=== PATIENT | female | born 1985 | race Caucasian/White ===

== ENCOUNTER → 2020-08-08 09:05 | Outpatient (BNVA) | payer MEDICARE, MEDICAID, SELFPAY | PROVIDERS: PCP Student in an Organized Health Care Education/Training Program; Visit Provider Orthopaedic Surgery | DX: M70.21 Olecranon bursitis, right elbow (principal) | CPT/HCPCS: 99204 ==

== ENCOUNTER 2020-08-11 12:23 | Outpatient (REF) | payer MEDICARE, MEDICAID, SELFPAY ==
[2020-08-12 08:56] LABS: Lyme Abs Screen <0.90 index
== END 2020-08-11 12:24 | disposition home or self-care (01) ==
LOC: HO.LAB 12:23
PROVIDERS: Visit Provider Student in an Organized Health Care Education/Training Program
DX: M70.22 Olecranon bursitis, left elbow (principal)
CPT/HCPCS: 36415; 86618

== ENCOUNTER 2020-10-16 12:52 | Inpatient (IN) | payer MEDICARE, MEDICAID, SELFPAY ==
--- NOTE | 2020-10-16 13:05 | XR_ITS ---
EXAMINATION: XR CHEST CLINICAL INFORMATION: OD COMPARISON: July 25, 2020 TECHNIQUE: AP portable view of the chest was obtained. FINDINGS: There are small lung volumes with minor atelectasis at the lung bases. No significant acute parenchymal disease identified. No pneumothorax or pleural effusion. Heart normal size. No evidence of pulmonary edema. XR/XR chest 1V IMPRESSION: No significant acute parenchymal disease.
--- NOTE | 2020-10-16 13:06 | ECG_ITS ---
Test Reason : OVERDOSE Blood Pressure : / mmHG Vent. Rate : 063 BPM Atrial Rate : 063 BPM P-R Int : 144 ms QRS Dur : 080 ms QT Int : 380 ms P-R-T Axes : 050 035 035 degrees QTc Int : 388 ms Normal sinus rhythm Low voltage QRS Borderline ECG When compared with ECG of 24-SEP-2019 09:07, Vent. rate has decreased BY 46 BPM Nonspecific T wave abnormality no longer evident in Lateral leads QT has shortened Referred By: Lg Low Electronically Signed By:SARAH GARCIA
--- NOTE | 2020-10-16 13:08 | ED_ITS ---
HPI - Overdose General Chief Complaint: Psychiatric Symptoms Stated Complaint: SI with Plan Time Seen by Provider: 10/16/20 13:04 Source: EMS Mode of arrival: EMS Limitations: no limitations History of Present Illness HPI Narrative: 35-year-old female with history of COPD, chronic thrombocytopenia, anxiety disorder, depression, vitamin B12 deficiency, opiate dependence, prior drug overdose, ADHD with surgical history of splenectomy presenting via EMS from the [facility] parking lot for the patient where she apparently attempted to commit suicide by the way of; she states that she bought a canister of a helium from the metal shop she put a bag over her head and apply connected to this tray to overdose on his however did not feel it was working so she bought some clonidine off history and took ?handful? 5 to 10 pills of 0.1 mg and took her regular medications as well. States she did not take anything ex tra aside from this. States she told her worker about this in the e-mail and the worker called her and told her what she did and who in return called EMS. Patient was found outside of her car and admitted to doing this to commit suicide. MD complaint: intentional overdose Related Data Home Medications Medication Instructions Recorded Confirmed albuterol sulfate 90 mcg/actuation 2 puff INHALATION QID 08/04/20 aerosol inhaler cariprazine 6 mg capsule 6 mg PO DAILY 08/04/20 clonazepam 1 mg tablet 1 mg PO DAILY 08/04/20 dextroamphetamine-amphetamine ER 25 mg PO DAILY 08/04/20 25 mg 24hr capsule,extend release fluticasone 500 mcg-salmeterol 50 1 inh INHALATION BID 08/04/20 mcg/dose blistr powdr for inhalation fluticasone propionate 50 1 spray INTRANASAL DAILY 08/04/20 mcg/actuation nasal spray,suspension gabapentin 100 mg capsule 200 mg PO DAILY cap 08/04/20 ibuprofen 400 mg tablet 400 mg PO Q6H 08/04/20 ipratropium 0.5 mg-albuterol 3 mg 3 ml INHALATION Q6-8H PRN 08/04/20 (2.5 mg base)/3 mL nebulization soln naproxen 250 mg tablet 250 mg PO BID PRN 08/04/20 nicotine 21 mg/24 hr daily 1 patch TRANSDERMAL DAILY 08/04/20 transdermal patch omeprazole magnesium 20 mg 20 mg PO DAILY 09/28/20 tablet,delayed release prednisone 10 mg tablet 10 mg PO BID 08/04/20 sumatriptan succinate 25 mg tablet 25 mg PO Q2-4H PRN 08/04/20 clonidine 0.1 mg-chlorthalidone 15 tab PO 08/08/20 mg tablet Previous Rx's Medication Instructions Recorded diclofenac sodium 75 mg 75 mg PO BID #60 tab 08/08/20 tablet,delayed release Allergies Allergy/AdvReac Type Severity Reaction Status Date / Time SEASONAL ALLERGIES Allergy Intermediate RUNNY NOSE Uncoded 07/24/20 15:20 WATERY EYES PMFSH Past Medical History Medical History (Updated 10/16/20 @ 21:14 by Lg Low NP) Anxiety COPD (chronic obstructive pulmonary disease) Depression Social History Social History Smoking Status: Current every day smoker Use of substances other than those prescribed or required for medical reasons: Yes Substance Use Type: Marijuana Advance Directives: No Advance Directives Information Provided: Yes 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 Physical Exam Vital Signs: Vital Signs: Last Vital Signs Temp 98.5 F 10/16/20 15:22 Pulse 58 10/16/20 18:00 Resp 16 10/16/20 18:00 BP 100/61 10/16/20 18:00 Pulse Ox 92 10/16/20 18:00 Body Mass Index 31.8 Course Course Course Narrative: Labs including toxicology screen, ethanol level, ABG and carboxyhemoglobin ordered. Patient alert and oriented x3. Will consult poison Control. Reevaluation(s) Reevaluation #1: Case discussed with poison control agreeable plan had nurses have reviewed the labs with them will call back to check up on it recommendation is to monitor for level of consciousness and side effects of the clonidine with bradycardia can be treated with atropine if it occurs. Otherwise no further recommendations. Reevaluation #2: Patient has remained stable repeat labs without significant change. Repeat EKG at 04:00 hours as well as toxicology screen including Tylenol aspirin level without change. Medically cleared Patient was seen by the crisis team in the community prior to arrival Section 12 in chart and bed search initiated. Reevaluation #3: 2114 Sign-out this time to 19 bending psychiatric placement MDM - Overdose Lab Data Result diagrams: 10/16/20 14:06 10/16/20 19:06 Labs: Lab Results 10/16/20 10/16/20 10/16/20 Range/Units 13:30 13:35 14:05 WBC (4.8-10.8) X10*3/uL RBC (4.20-5.50) X10*6/uL Hgb (12.0-16.0) g/dl Hct (37-47) % MCV (80-98) fL MCH (27.0-33.0) pg MCHC (31.0-35.0) g/dl RDW (11.0-16.0) % Plt Count (160-400) X10*3/uL MPV (9.4-12.3) fL Immature Gran % (Auto) (0.0-0.4) % Neut % (Auto) (45-73) % Lymph % (Auto) (20-40) % [place] % (Auto) (2-11) % Eos % (Auto) (0-4) % Baso % (Auto) (0-2) % Lymph # (Auto) (1.2-4.9) X10*3/uL [place] # (Auto) (0.1-1.2) X10*3/uL Eos # (Auto) (0.0-0.4) X10*3/uL Baso # (Auto) (0.0-0.2) X10*3/uL Abs Immat Gran (auto) (0.00-0.03) X10*3/uL Absolute Neuts (auto) (2.0-8.3) X10*3/uL Absolute Nucleated RBC (0.0-0.012) X10*3/uL Nucleated RBC % (auto) (0.0-0.2) /100WBC PT (10.8-13.0) SEC INR (0.9-1.1) APTT (24.1-38.0) SEC ABG pH 7.37 (7.35-7.45) ABG pCO2 46 H (32-45) mmhg ABG pO2 76 L (83-108) mmhg ABG HCO3 26 (22-26) mmol/l ABG O2 Saturation 95.4 % ABG Base Excess -0.2 Carboxyhemoglobin 6.1 H* % Oxygen Given 2 L Sodium (135-145) mmol/L Potassium (3.3-5.1) mmol/l Chloride (96-108) mmol/L Carbon Dioxide (22-29) mmol/L Anion Gap (12-20) BUN (9-16) mg/dL Creatinine (0.5-1.4) mg/dL Estim Creat Clear Calc Estimated GFR Random Glucose (60-115) mg/dL Calcium (8.4-10.2) mg/dL Total Bilirubin (0.0-1.0) mg/dL AST (5-31) U/L ALT (0-31) U/L Alkaline Phosphatase (39-117) U/L Total Protein (6.5-8.0) g/dL Albumin (3.5-5.0) g/dL Urine Color YELLOW Urine Appearance CLEAR Urine pH 6.0 (5.0-8.0) Ur Specific [place] 1.015 (1.005-1.025) Urine Protein NEG (NEG-TRACE) MG/DL Urine Glucose (UA) NEG (NEG) MG/DL Urine Ketones NEG (NEG) MG/DL Urine Blood 3+ H (NEG) Urine Nitrite NEG (NEG) Ur Leukocyte Esterase NEG (NEG) Urine RBC 0 (0) /HPF Urine WBC 0 (0-4) /HPF Ur Squamous Epith Cells TRACE /LPF Amorphous Sediment TRACE /LPF Urine Bacteria NONE /LPF Urine Test NEGATIVE (NEGATIVE) Salicylates (15-30) mg/dL Urine Opiates Screen (Not Detect) Acetaminophen (<30) mcg/mL Ur Barbiturates Screen (Not Detect) Ur Phencyclidine Scrn (Not Detect) Ur Amphetamines Screen (Not Detect) U Benzodiazepines Scrn (Not Detect) Urine Cocaine Screen (Not Detect) U Marijuana (THC) Screen (Not Detect) Ethyl Alcohol mg/dL 10/16/20 10/16/20 10/16/20 Range/Units 14:05 14:06 14:06 WBC 11.3 H (4.8-10.8) X10*3/uL RBC 4.69 (4.20-5.50) X10*6/uL Hgb 14.4 (12.0-16.0) g/dl Hct 42.6 (37-47) % MCV 90.8 (80-98) fL MCH 30.7 (27.0-33.0) pg MCHC 33.8 (31.0-35.0) g/dl RDW 14.8 (11.0-16.0) % Plt Count 492 H (160-400) X10*3/uL MPV 10.2 (9.4-12.3) fL Immature Gran % (Auto) 0.4 (0.0-0.4) % Neut % (Auto) 64.2 (45-73) % Lymph % (Auto) 26.4 (20-40) % [place] % (Auto) 7.4 (2-11) % Eos % (Auto) 0.9 (0-4) % Baso % (Auto) 0.7 (0-2) % Lymph # (Auto) 3.0 (1.2-4.9) X10*3/uL [place] # (Auto) 0.8 (0.1-1.2) X10*3/uL Eos # (Auto) 0.1 (0.0-0.4) X10*3/uL Baso # (Auto) 0.1 (0.0-0.2) X10*3/uL Abs Immat Gran (auto) 0.04 H (0.00-0.03) X10*3/uL Absolute Neuts (auto) 7.3 (2.0-8.3) X10*3/uL Absolute Nucleated RBC 0.000 (0.0-0.012) X10*3/uL Nucleated RBC % (auto) 0.0 (0.0-0.2) /100WBC PT (10.8-13.0) SEC INR (0.9-1.1) APTT (24.1-38.0) SEC ABG pH (7.35-7.45) ABG pCO2 (32-45) mmhg ABG pO2 (83-108) mmhg ABG HCO3 (22-26) mmol/l ABG O2 Saturation % ABG Base Excess Carboxyhemoglobin % Oxygen Given Sodium 136 (135-145) mmol/L Potassium 4.6 (3.3-5.1) mmol/l Chloride 103 (96-108) mmol/L Carbon Dioxide 25 (22-29) mmol/L Anion Gap 13 (12-20) BUN 12 (9-16) mg/dL Creatinine 0.77 (0.5-1.4) mg/dL Estim Creat Clear Calc 102.2 Estimated GFR > 60 Random Glucose 118 H (60-115) mg/dL Calcium 9.6 (8.4-10.2) mg/dL Total Bilirubin 0.5 (0.0-1.0) mg/dL AST 19 (5-31) U/L ALT 21 (0-31) U/L Alkaline Phosphatase 74 (39-117) U/L Total Protein 7.0 (6.5-8.0) g/dL Albumin 4.2 (3.5-5.0) g/dL Urine Color Urine Appearance Urine pH (5.0-8.0) Ur Specific [place] (1.005-1.025) Urine Protein (NEG-TRACE) MG/DL Urine Glucose (UA) (NEG) MG/DL Urine Ketones (NEG) MG/DL Urine Blood (NEG) Urine Nitrite (NEG) Ur Leukocyte Esterase (NEG) Urine RBC (0) /HPF Urine WBC (0-4) /HPF Ur Squamous Epith Cells /LPF Amorphous Sediment /LPF Urine Bacteria /LPF Urine Test (NEGATIVE) Salicylates < 5.0 L (15-30) mg/dL Urine Opiates Screen Not Detected (Not Detect) Acetaminophen < 1 (<30) mcg/mL Ur Barbiturates Screen Not Detected (Not Detect) Ur Phencyclidine Scrn Not Detected (Not Detect) Ur Amphetamines Screen POSITIVE H (Not Detect) U Benzodiazepines Scrn POSITIVE H (Not Detect) Urine Cocaine Screen Not Detected (Not Detect) U Marijuana (THC) Screen POSITIVE H (Not Detect) Ethyl Alcohol mg/dL 10/16/20 10/16/20 10/16/20 Range/Units 14:06 14:06 19:06 WBC (4.8-10.8) X10*3/uL RBC (4.20-5.50) X10*6/uL Hgb (12.0-16.0) g/dl Hct (37-47) % MCV (80-98) fL MCH (27.0-33.0) pg MCHC (31.0-35.0) g/dl RDW (11.0-16.0) % Plt Count (160-400) X10*3/uL MPV (9.4-12.3) fL Immature Gran % (Auto) (0.0-0.4) % Neut % (Auto) (45-73) % Lymph % (Auto) (20-40) % [place] % (Auto) (2-11) % Eos % (Auto) (0-4) % Baso % (Auto) (0-2) % Lymph # (Auto) (1.2-4.9) X10*3/uL [place] # (Auto) (0.1-1.2) X10*3/uL Eos # (Auto) (0.0-0.4) X10*3/uL Baso # (Auto) (0.0-0.2) X10*3/uL Abs Immat Gran (auto) (0.00-0.03) X10*3/uL Absolute Neuts (auto) (2.0-8.3) X10*3/uL Absolute Nucleated RBC (0.0-0.012) X10*3/uL Nucleated RBC % (auto) (0.0-0.2) /100WBC PT 12.3 (10.8-13.0) SEC INR 1.0 (0.9-1.1) APTT 34.8 (24.1-38.0) SEC ABG pH (7.35-7.45) ABG pCO2 (32-45) mmhg ABG pO2 (83-108) mmhg ABG HCO3 (22-26) mmol/l ABG O2 Saturation % ABG Base Excess Carboxyhemoglobin % Oxygen Given Sodium 141 (135-145) mmol/L Potassium 3.6 D (3.3-5.1) mmol/l Chloride 114 H (96-108) mmol/L Carbon Dioxide 19 L (22-29) mmol/L Anion Gap 12 (12-20) BUN 9 (9-16) mg/dL Creatinine 0.55 (0.5-1.4) mg/dL Estim Creat Clear Calc 143.1 Estimated GFR > 60 Random Glucose 89 (60-115) mg/dL Calcium 6.8 L D (8.4-10.2) mg/dL Total Bilirubin 0.4 (0.0-1.0) mg/dL AST 12 (5-31) U/L ALT 13 (0-31) U/L Alkaline Phosphatase 49 D (39-117) U/L Total Protein 4.5 L D (6.5-8.0) g/dL Albumin 2.7 L D (3.5-5.0) g/dL Urine Color Urine Appearance Urine pH (5.0-8.0) Ur Specific [place] (1.005-1.025) Urine Protein (NEG-TRACE) MG/DL Urine Glucose (UA) (NEG) MG/DL Urine Ketones (NEG) MG/DL Urine Blood (NEG) Urine Nitrite (NEG) Ur Leukocyte Esterase (NEG) Urine RBC (0) /HPF Urine WBC (0-4) /HPF Ur Squamous Epith Cells /LPF Amorphous Sediment /LPF Urine Bacteria /LPF Urine Test (NEGATIVE) Salicylates < 5.0 L (15-30) mg/dL Urine Opiates Screen (Not Detect) Acetaminophen < 1 (<30) mcg/mL Ur Barbiturates Screen (Not Detect) Ur Phencyclidine Scrn (Not Detect) Ur Amphetamines Screen (Not Detect) U Benzodiazepines Scrn (Not Detect) Urine Cocaine Screen (Not Detect) U Marijuana (THC) Screen (Not Detect) Ethyl Alcohol < 10 mg/dL Imaging Data Chest x-ray: Radiologist's impression: [address] [address] XRay Report Signed Patient: Tammy Romero LMR#: [id number] : 1985Acct:[id number] Age/Sex: 35 / FADM Date: 10/16/20 Loc: .ED Attending Dr: Ordering Physician: Lg Low NP Date of Service: 10/16/20 Procedure(s): XR chest 1V Accession Number(s): [id number] cc: Lg Low LAB SUPPORT TECHNICIAN~ EXAMINATION: XR CHEST CLINICAL INFORMATION: OD COMPARISON: July 25, 2020 TECHNIQUE: AP portable view of the chest was obtained. FINDINGS: There are small lung volumes with minor atelectasis at the lung bases. No significant acute parenchymal disease identified. No pneumothorax or pleural effusion. Heart normal size. No evidence of pulmonary edema. XR/XR chest 1V IMPRESSION: No significant acute parenchymal disease. Dictated By:JUANITO REYNAGA MD Signed By:<Electronically signed by JUANITO REYNAGA MD in OV>10/16/20 1428 DD/ 1305 TD/TT: [employer]der [employer]: KIESHA ECG Data Interpretation: Normal sinus rhythm Rate 63 P.r. interval within normal limits QT/QTC within normal limits No acute ST segment changes Discharge Plan Discharge Clinical Impression: Depression, Overdose, Suicide attempt Prescriptions: No Action diclofenac sodium 75 mg tablet,delayed release (DR/EC) 75 mg PO BID Qty: 60 RF: 2
[2020-10-16 13:28] VITALS: O2SAT 93
[2020-10-16 13:31] VITALS: BP 101/61; BP 102/84; PULSE 59; RESP 18; TEMP 36.9; O2SAT 90; BMI 31.8
--- NOTE | 2020-10-16 14:02 | PC.NURSE ---
Pt changed into hospital attire, urine obtained. Moved to room 8 and placed on equipment monitor phototypesetting and EKg obtained. Attempted IV access and unable, another RN to attemt at this time. Poison control contacted and states supportive care and monitoring for hypotension and bradycardia. Use Narcan (for clonidine OD) if warranted. Lg Maranda updated
[2020-10-16 14:07] LABS: ABG PCO2 46 mmhg (32-45); Base Excess ABG -0.2; HCO3 ABG 26 mmol/l (22-26); PO2 ABG 76 mmhg (83-108); Pt Ventilation O2% 2 L; pH ABG 7.37 (7.35-7.45)
[2020-10-16 14:08] LABS: Blood Gas Serial # 5396; Oxygen Saturation ABG 95.4 %
[2020-10-16 14:17] LABS: MANUAL DIFF FLAG NO
[2020-10-16 14:22] LABS: Glucose Urine UA NEG (NEG); Leukocyte Esterase Urine NEG (NEG); Nitrite Urine NEG (NEG); Specific Gravity - Urine 1.015 (1.005-1.025); Urine Blood 3+ (NEG); Urine Ketones NEG (NEG); Urine Protein NEG (NEG-TRACE)
[2020-10-16 14:27] LABS: Appearance Urine CLEAR; Color Urine YELLOW
[2020-10-16 14:30] LABS: UPreg QC Valid YES; Urine Pregnancy NEGATIVE (NEGATIVE)
[2020-10-16 14:30] LABS: Basophils Absolute Auto 0.1 X10*3/uL (0.0-0.2); Basophils Percent Auto 0.7 % (0-2); Eosinophils Absolute Auto 0.1 X10*3/uL (0.0-0.4); Eosinophils Percent Auto 0.9 % (0-4); Hematocrit 42.6 % (37-47); Hemoglobin 14.4 g/dl (12.0-16.0); Imm Gran Abs Auto 0.04 X10*3/uL (0.00-0.03); Imm Gran Pct Auto 0.4 % (0.0-0.4); Lymphocytes Percent Auto 26.4 % (20-40); Mean Corpuscular HGB Conc 33.8 g/dl (31.0-35.0); Mean Corpuscular Hemoglobin 30.7 pg (27.0-33.0); Mean Corpuscular Volume 90.8 fL (80-98); Mean Platelet Volume 10.2 fL (9.4-12.3); Monocytes Absolute Auto 0.8 X10*3/uL (0.1-1.2); Monocytes Percent Auto 7.4 % (2-11); Neutrophils Absolute Auto 7.3 X10*3/uL (2.0-8.3); Neutrophils Percent Auto 64.2 % (45-73); Platelet Count 492 X10*3/uL (160-400); Red Blood Count 4.69 X10*6/uL (4.20-5.50); Red Cell Distribution Width 14.8 % (11.0-16.0)
[2020-10-16 14:32] LABS: Prothrombin Time 12.3 SEC (10.8-13.0); White Blood Count 11.3 X10*3/uL (4.8-10.8)
[2020-10-16 14:34] LABS: Amorphous Sediment Urine TRACE /LPF; RBC Urine 0 /HPF (0); Squamous Epithelial Cell Urine TRACE /LPF; WBC Urine 0 /HPF (0-4)
[2020-10-16 14:35] LABS: Partial Thromboplastin Time 34.8 SEC (24.1-38.0)
[2020-10-16 14:56] LABS: Ethanol < 10 mg/dL
[2020-10-16 14:59] LABS: Amphetamine Screen Urine POSITIVE (Not Detect); Barbiturates, Urine Not Detected (Not Detect); Benzodiazepines Screen Urine POSITIVE (Not Detect); Cannabinoid Screen Urine POSITIVE (Not Detect); Cocaine Screen Urine Not Detected (Not Detect); Opiate Screen Urine Not Detected (Not Detect); Phencyclidine Screen Urine Not Detected (Not Detect)
[2020-10-16 15:04] LABS: Alanine Aminotransferase 21 U/L (0-31); Albumin Level 4.2 g/dL (3.5-5.0); Alkaline Phosphatase 74 U/L (39-117); Anion Gap 13 (12-20); Aspartate Amino Transferase 19 U/L (5-31); Bilirubin Total 0.5 mg/dL (0.0-1.0); Blood Urea Nitrogen 12 mg/dL (9-16); Calcium 9.6 mg/dL (8.4-10.2); Carbon Dioxide 25 mmol/L (22-29); Chloride 103 mmol/L (96-108); Creatinine Clr Calc Pharmacy 102.2; Estimated Glomerular Filt Rate > 60; Glucose Random 118 mg/dL (60-115); Potassium 4.6 mmol/l (3.3-5.1); Sodium 136 mmol/L (135-145)
[2020-10-16 15:07] LABS: Acetaminophen LAB < 1 mcg/mL (<30); Salicylate < 5.0 mg/dL (15-30)
[2020-10-16 15:22] VITALS: BP 95/58; PULSE 61; RESP 17; TEMP 36.9; O2SAT 94
--- NOTE | 2020-10-16 16:04 | PC.NURSE ---
THIS RN SPOKE W/ POISON CONTROL FOR FOLLOW UP, PT CLEARED FOR SUPPORTIVE CARE ATT, POISON CONTROL STATED THEY WOULD CHECK IN ON PATIENT IN 24 HRS.
[2020-10-16 16:55] VITALS: BP 101/61; PULSE 60; RESP 14; O2SAT 92
[2020-10-16 17:24] LABS: Carboxyhemoglobin 6.1 %
[2020-10-16 18:00] VITALS: BP 100/61; PULSE 58; RESP 16; O2SAT 92
[2020-10-16 19:43] LABS: Alanine Aminotransferase 13 U/L (0-31); Albumin Level 2.7 g/dL (3.5-5.0); Alkaline Phosphatase 49 U/L (39-117); Anion Gap 12 (12-20); Aspartate Amino Transferase 12 U/L (5-31); Bilirubin Total 0.4 mg/dL (0.0-1.0); Blood Urea Nitrogen 9 mg/dL (9-16); Calcium 6.8 mg/dL (8.4-10.2); Carbon Dioxide 19 mmol/L (22-29); Chloride 114 mmol/L (96-108); Creatinine Clr Calc Pharmacy 143.1; Estimated Glomerular Filt Rate > 60; Glucose Random 89 mg/dL (60-115); Potassium 3.6 mmol/l (3.3-5.1); Sodium 141 mmol/L (135-145); Total Protein 4.5 g/dL (6.5-8.0)
[2020-10-16 20:03] LABS: Acetaminophen LAB < 1 mcg/mL (<30); Salicylate < 5.0 mg/dL (15-30)
[2020-10-16 21:44] VITALS: BP 100/61; PULSE 57; RESP 14; TEMP 36.9; O2SAT 97
--- NOTE | 2020-10-16 21:47 | PC.NURSE ---
pt awoke during rn covering me for break, during quick report pt stated i don't need anyone with me in the bathroom. explained to pt that for safety, she needs to have somebody in bathroom, or outside door with door unlocked.
--- NOTE | 2020-10-16 22:40 | MHC.CARE ---
CARE Team speaks with Kassidy, crisis food preparation supervisor from [facility]. Pt was seen in the community by [facility] and currently an inpt bedsearch is underway.
[2020-10-17] VITALS (11 sets, daily range): BP systolic 101–134; BP diastolic 48–78; PULSE 18–82; RESP 14–18; TEMP 36.2–36.7; O2SAT 88–94
--- NOTE | 2020-10-17 01:30 | PC.NURSE ---
PT REQUESTING NICOTINE PATCH AND SOMETHING FOR ANXIETY.
[2020-10-17] MEDS: LORazepam 1 MG TABLET PO (02:35)
[2020-10-17] MEDS: Nicotine 21 MG PATCH.TD24 TRANSDERMA ×2 (02:35→16:44)
--- NOTE | 2020-10-17 02:37 | PC.NURSE ---
PT'S SPO2 86-88% PLACED ON 3 LPM 02. SAT IMPROVED TO 90%.
[2020-10-17 03:36] LABS: COVID-19 Test Negative (Negative)
--- NOTE | 2020-10-17 06:21 | PC.NURSE ---
pt given 2 containers of apple juice. pt on phone.
--- NOTE | 2020-10-17 07:20 | PC.NURSE ---
reports taken from Rachel BURROUGHS. pt awake sitting on stretcher eating breakfast, using phone to make call. pt calm at this time. asking if bed has been found for bed search. explained to patient she will check in with [facility] later this morning, but may take some time for bed to be found. pt also asking about her medications, explained that pharmacy will come verify her meds with her so we can continue then in ED. pt understood. staff able to view patient at all times.
--- NOTE | 2020-10-17 08:24 | PC.NURSE ---
Pt transferred from main ED. Pt alert, affect sad, tearful, states she would like to go home. Pt deniews any concerns at this time except that she would like to be admitted to [facility].
[2020-10-17] MEDS: Gabapentin 300 MG CAPSULE PO (09:50)
[2020-10-17] MEDS: Sertraline HCL 100 MG TABLET PO (09:50)
[2020-10-17] MEDS: cloNIDine HCL 0.1 MG TABLET PO ×3 (09:56→22:20)
[2020-10-17] MEDS: Cariprazine HCl 3 MG CAPSULE 6 MG PO (10:01)
[2020-10-17] MEDS: Diclofenac Sodium Delayed Rel 75 MG TABLET.DR PO ×2 (10:02→22:22)
[2020-10-17] MEDS: clonazePAM 1 MG TABLET PO ×2 (10:08→22:21)
[2020-10-17] MEDS: Amphetamine Mixed Salts 10 MG TABLET PO ×2 (10:08→13:04)
[2020-10-17] MEDS: clonazePAM 0.5 MG TABLET PO (13:04)
--- NOTE | 2020-10-17 17:22 | PC.NURSE ---
Late entry: report given to Lory Hilton RN on M%. Pt aware that she will be transferred soon, pt in agreement w/ plan to transfer, no concerns reported.
[2020-10-17] MEDS: Gabapentin 100 MG CAPSULE 200 MG PO (22:22)
[2020-10-17] MEDS: hydrOXYzine HCL 25 MG TABLET PO (22:24)
--- NOTE | 2020-10-18 00:03 | PC.ADMIT ---
A white, female, aged 35 years was admitted as a CV at 1900 to [facility] following referral from [facility] and [facility]. Pt was here at 0n 11/03/2017 with a similar presentation, February 2017, at [facility] kathia Cline. Pt has a previous admission at [facility] in 2007 for detox from percocet per [facility] assessment. A staff at [facility] outpatient called 911 after pt texted her that she had taken an overdose of Klonopin and was putting a bag filled with helium over her head to kill herself. Pt was located in her car per [facility] report by providers who removed the bag from pt's head before police arrived. Pt stated to this medical writer that the [facility] report is incorrect. Pt said she took 20 clonidine tablets and did not take Klonopin. [facility] report indicated multple stressors per providers, but was not elaborated on. Pt was brought to the ED on 10/16/20. Pt was cooperative but stated she was tired, so had limited participation in admission. ROLON was positive for amphetamines and benzodiazipines, which are prescribed. Pt was also positive for marijuana. Pt reports last Etoh use in December of 2019. Medical issues include: asthma, CPOD. Medical history includes cervical cancer, migraines, anemia, B12 deficiency. Pt had a spleen removed in 2016.Pt is resting in her room on 15-minute Safety Checks; pt has routine BID vital signs. [id number] done, pt placed in psych groups and admitting orders obtained.
[2020-10-18 05:50] VITALS: BP 111/69; PULSE 60; RESP 18; TEMP 36.8; O2SAT 94
[2020-10-18] MEDS: Omeprazole 20 MG CAPSULE.DR PO (06:09)
--- NOTE | 2020-10-18 07:21 | P.HPPS_ITS ---
HPI Chief Complaint: SI Sources of Information: patient interviewed, chart reviewed and crisis/core team assessment reviewed Additional Sources of Information: Past records HPI Narrative: 35 WF well known to M5 and TW presents after [facility] supervisor records change called for Crisis evaluation. Pt texted SI and was going to use helium with a paper bag over her head. Today is much calmer says SI was fleeting. Foley abandoned at the time. Stressors are: Relationship with GF are confusing. GF sleeps with many men and tells me about it...also drinking a lot . Helped cousin who now does not contact her after he has a GF. Known Hx of Mood disorder/PTSD and Borderline profile and Hx of polysubstance use in past. States she feels stabilized by [facility]D support. Has had X similar presentation here and other hospitals. Past Psychiatric History: X area hospitalizations but less frequent now. Extensive CHD support. Sees Chang Ball, [facility]D manages meds 7 days a week with packaging meds for pm, one day at a time. Medical Evaluation Reviewed: Yes [facility] Medical History (Updated 10/18/20 @ 15:02 by Wil Zaragoza) Anemia Anxiety B12 deficiency Cervical cancer COPD (chronic obstructive pulmonary disease) Depression Migraines Surgical History (Updated 10/17/20 @ 23:40 by Saji Romeo RN) History of total splenectomy Family History: Many members have substance abuse Social History: lives with ex-H and 4 kids (15, 14, 7, 2). Hx DCF intervention. In relationship with a girlfriend he does not know about it Substance History: Now mainly THC. Past Opioids. Sustained remission. Tox + for THC and prescribed benzos/amphetamines Trauma History: Extensive as noted in past Diagnostics Vital Signs (24Hr): Vital Signs - 24 hr 10/17/20 07:25 10/17/20 08:00 10/17/20 09:56 Temperature 98.0 F Pulse Rate 51 18 L 66 Respiratory Rate 14 Blood Pressure 102/57 L 134/71 Pulse Oximetry 91 L 10/17/20 10:00 10/17/20 12:00 10/17/20 14:00 Temperature Pulse Rate Respiratory Rate 18 18 18 Blood Pressure Pulse Oximetry 10/17/20 16:12 10/17/20 16:44 10/17/20 18:00 Temperature 97.1 F Pulse Rate 60 60 Respiratory Rate 16 18 Blood Pressure 111/60 111/60 Pulse Oximetry 94 10/17/20 22:20 10/18/20 05:50 Temperature 98.2 F Pulse Rate 82 60 Respiratory Rate 18 Blood Pressure 130/78 111/69 Pulse Oximetry 94 Body Mass Index 31.8 Labs Results: 10/16/20 14:06 10/16/20 19:06 Labs: Laboratory Results - last 48 hr 10/16/20 10/16/20 10/16/20 13:30 13:35 14:05 WBC RBC Hgb Hct MCV MCH MCHC RDW Plt Count MPV Immature Gran % (Auto) Neut % (Auto) Lymph % (Auto) [place] % (Auto) Eos % (Auto) Baso % (Auto) Lymph # (Auto) [place] # (Auto) Eos # (Auto) Baso # (Auto) Abs Immat Gran (auto) Absolute Neuts (auto) Absolute Nucleated RBC Nucleated RBC % (auto) PT INR APTT ABG pH 7.37 ABG pCO2 46 H ABG pO2 76 L ABG HCO3 26 ABG O2 Saturation 95.4 ABG Base Excess -0.2 Carboxyhemoglobin 6.1 H* Oxygen Given 2 L Sodium Potassium Chloride Carbon Dioxide Anion Gap BUN Creatinine Estim Creat Clear Calc Estimated GFR Random Glucose Calcium Total Bilirubin AST ALT Alkaline Phosphatase Total Protein Albumin Urine Color YELLOW Urine Appearance CLEAR Urine pH 6.0 Ur Specific [place] 1.015 Urine Protein NEG Urine Glucose (UA) NEG Urine Ketones NEG Urine Blood 3+ H Urine Nitrite NEG Ur Leukocyte Esterase NEG Urine RBC 0 Urine WBC 0 Ur Squamous Epith Cells TRACE Amorphous Sediment TRACE Urine Bacteria NONE Urine Test NEGATIVE Salicylates Urine Opiates Screen Acetaminophen Ur Barbiturates Screen Ur Phencyclidine Scrn Ur Amphetamines Screen U Benzodiazepines Scrn Urine Cocaine Screen U Marijuana (THC) Screen Ethyl Alcohol COVID-19 ([facility]YA) COVID-19 Clin Com 10/16/20 10/16/20 10/16/20 14:05 14:06 14:06 WBC 11.3 H RBC 4.69 Hgb 14.4 Hct 42.6 MCV 90.8 MCH 30.7 MCHC 33.8 RDW 14.8 Plt Count 492 H MPV 10.2 Immature Gran % (Auto) 0.4 Neut % (Auto) 64.2 Lymph % (Auto) 26.4 [place] % (Auto) 7.4 Eos % (Auto) 0.9 Baso % (Auto) 0.7 Lymph # (Auto) 3.0 [place] # (Auto) 0.8 Eos # (Auto) 0.1 Baso # (Auto) 0.1 Abs Immat Gran (auto) 0.04 H Absolute Neuts (auto) 7.3 Absolute Nucleated RBC 0.000 Nucleated RBC % (auto) 0.0 PT INR APTT ABG pH ABG pCO2 ABG pO2 ABG HCO3 ABG O2 Saturation ABG Base Excess Carboxyhemoglobin Oxygen Given Sodium 136 Potassium 4.6 Chloride 103 Carbon Dioxide 25 Anion Gap 13 BUN 12 Creatinine 0.77 Estim Creat Clear Calc 102.2 Estimated GFR > 60 Random Glucose 118 H Calcium 9.6 Total Bilirubin 0.5 AST 19 ALT 21 Alkaline Phosphatase 74 Total Protein 7.0 Albumin 4.2 Urine Color Urine Appearance Urine pH Ur Specific [place] Urine Protein Urine Glucose (UA) Urine Ketones Urine Blood Urine Nitrite Ur Leukocyte Esterase Urine RBC Urine WBC Ur Squamous Epith Cells Amorphous Sediment Urine Bacteria Urine Test Salicylates < 5.0 L Urine Opiates Screen Not Detected Acetaminophen < 1 Ur Barbiturates Screen Not Detected Ur Phencyclidine Scrn Not Detected Ur Amphetamines Screen POSITIVE H U Benzodiazepines Scrn POSITIVE H Urine Cocaine Screen Not Detected U Marijuana (THC) Screen POSITIVE H Ethyl Alcohol COVID-19 ([facility]YA) COVID-19 Clin Com 10/16/20 10/16/20 10/16/20 14:06 14:06 19:06 WBC RBC Hgb Hct MCV MCH MCHC RDW Plt Count MPV Immature Gran % (Auto) Neut % (Auto) Lymph % (Auto) [place] % (Auto) Eos % (Auto) Baso % (Auto) Lymph # (Auto) [place] # (Auto) Eos # (Auto) Baso # (Auto) Abs Immat Gran (auto) Absolute Neuts (auto) Absolute Nucleated RBC Nucleated RBC % (auto) PT 12.3 INR 1.0 APTT 34.8 ABG pH ABG pCO2 ABG pO2 ABG HCO3 ABG O2 Saturation ABG Base Excess Carboxyhemoglobin Oxygen Given Sodium 141 Potassium 3.6 D Chloride 114 H Carbon Dioxide 19 L Anion Gap 12 BUN 9 Creatinine 0.55 Estim Creat Clear Calc 143.1 Estimated GFR > 60 Random Glucose 89 Calcium 6.8 L D Total Bilirubin 0.4 AST 12 ALT 13 Alkaline Phosphatase 49 D Total Protein 4.5 L D Albumin 2.7 L D Urine Color Urine Appearance Urine pH Ur Specific [place] Urine Protein Urine Glucose (UA) Urine Ketones Urine Blood Urine Nitrite Ur Leukocyte Esterase Urine RBC Urine WBC Ur Squamous Epith Cells Amorphous Sediment Urine Bacteria Urine Test Salicylates < 5.0 L Urine Opiates Screen Acetaminophen < 1 Ur Barbiturates Screen Ur Phencyclidine Scrn Ur Amphetamines Screen U Benzodiazepines Scrn Urine Cocaine Screen U Marijuana (THC) Screen Ethyl Alcohol < 10 COVID-19 ([facility]YA) COVID-19 Clin Com 10/17/20 03:10 WBC RBC Hgb Hct MCV MCH MCHC RDW Plt Count MPV Immature Gran % (Auto) Neut % (Auto) Lymph % (Auto) [place] % (Auto) Eos % (Auto) Baso % (Auto) Lymph # (Auto) [place] # (Auto) Eos # (Auto) Baso # (Auto) Abs Immat Gran (auto) Absolute Neuts (auto) Absolute Nucleated RBC Nucleated RBC % (auto) PT INR APTT ABG pH ABG pCO2 ABG pO2 ABG HCO3 ABG O2 Saturation ABG Base Excess Carboxyhemoglobin Oxygen Given Sodium Potassium Chloride Carbon Dioxide Anion Gap BUN Creatinine Estim Creat Clear Calc Estimated GFR Random Glucose Calcium Total Bilirubin AST ALT Alkaline Phosphatase Total Protein Albumin Urine Color Urine Appearance Urine pH Ur Specific [place] Urine Protein Urine Glucose (UA) Urine Ketones Urine Blood Urine Nitrite Ur Leukocyte Esterase Urine RBC Urine WBC Ur Squamous Epith Cells Amorphous Sediment Urine Bacteria Urine Test Salicylates Urine Opiates Screen Acetaminophen Ur Barbiturates Screen Ur Phencyclidine Scrn Ur Amphetamines Screen U Benzodiazepines Scrn Urine Cocaine Screen U Marijuana (THC) Screen Ethyl Alcohol COVID-19 (KENYA) Negative COVID-19 Clin Com See Note Imaging Radiology Impressions: ITS Impressions Chest X-Ray 10/16/20 13:05 IMPRESSION: No significant acute parenchymal disease. Meds/Allergies Meds Home Medications Acetaminophen (Acetaminophen 325 Mg Tablet) 650 mg PO Q6H PRN PRN Reason: Headache/Pain Mild Scale (1-3) Al Hydroxide/Mg Hydroxide (Magnesium Hydrox/Alum Hydrox 30 Ml Oral.Susp) 30 ml PO Q6H PRN PRN Reason: Heartburn/Nausea Cariprazine (Cariprazine Hcl 3 Mg Capsule) 6 mg PO DAILY [facility] Last Admin: 10/18/20 08:34 Dose: 6 mg Documented by: Clonazepam (Clonazepam 1 Mg Tablet) 1 mg PO BID [facility] Last Admin: 10/18/20 08:35 Dose: 1 mg Documented by: Clonazepam (Clonazepam 0.5 Mg Tablet) 0.5 mg PO DAILY@1200 [facility] Last Admin: 10/18/20 12:28 Dose: 0.5 mg Documented by: Clonidine HCl (Clonidine Hcl 0.1 Mg Tablet) 0.1 mg PO TID [facility]; Protocol Last Admin: 10/18/20 14:35 Dose: 0.1 mg Documented by: Diclofenac Sodium (Diclofenac Sodium Delayed Rel 75 Mg Tablet.) 75 mg PO BID [facility] Last Admin: 10/18/20 08:34 Dose: 75 mg Documented by: Diphenhydramine HCl (Diphenhydramine Hcl 25 Mg Tablet) 25 mg PO BEDTIME PRN PRN Reason: Insomnia Gabapentin (Gabapentin 300 Mg Capsule) 300 mg PO DAILY [facility] Last Admin: 10/18/20 08:36 Dose: 300 mg Documented by: Gabapentin (Gabapentin 100 Mg Capsule) 200 mg PO BEDTIME [facility] Last Admin: 10/17/20 22:22 Dose: 200 mg Documented by: Magnesium Hydroxide (Milk Of Magnesia 30 Ml Oral.Susp) 30 ml PO DAILY PRN PRN Reason: Constipation Nicotine (Nicotine 21 Mg Patch.Td24) 21 mg TRANSDERMA DAILY [facility] Last Admin: 10/18/20 10:29 Dose: 21 mg Documented by: Nicotine Polacrilex (Nicotine Polacrilex 2 Mg Gum) 2 mg BUCCAL Q2H PRN PRN Reason: Nicotine Cravings Patient Own Medication (Adderall Xr 25 Mg) 1 each PO DAILY [facility] Last Admin: 10/18/20 11:14 Dose: 1 each Documented by: Omeprazole (Omeprazole 20 Mg Capsule.) 20 mg PO DAILY@0630 [facility] Last Admin: 10/18/20 06:09 Dose: 20 mg Documented by: Sertraline HCl (Sertraline Hcl 50 Mg Tablet) 150 mg PO DAILY [facility] Last Admin: 10/18/20 13:06 Dose: Not Given Documented by: Trazodone HCl (Trazodone Hcl 50 Mg Tablet) 50 mg PO BEDTIME PRN PRN Reason: Insomnia Allergies Allergies Allergy/AdvReac Type Severity Reaction Status Date / Time SEASONAL ALLERGIES Allergy Intermediate RUNNY NOSE Uncoded 07/24/20 15:20 WATERY EYES Mental Status Exam Mental Status Exam Patient Appearance: Disheveled and Unkempt Patient Orientation: Person, Place, Time and Situation Level of Consciousness: Awake Patient Behavior: Anxious and Poor Eye Contact Mood Description: Depressed and Anxious Affect Description: Depressed and Anxious Patient Cognition Impaired: No Ability to Follow Directions: Good Speech Pattern: Clear Memory Description: Intact Hallucinations: None Thought Process: Intact Depressive Symptoms: Increased Anxiety, Unhappiness, Thoughts of /Suicide, Loss of Energy and Difficulty Concentrating Abnormal Motor Activity Signs and Symptoms: Restlessness Judgement: Poor Assessment & Plan Assessment & Plan (1) Bipolar disorder, unspecified: Status: Acute Code(s): F31.9 - Bipolar disorder, unspecified (2) Borderline personality disorder: Status: Acute Code(s): F60.3 - Borderline personality disorder (3) Posttraumatic stress disorder: Status: Acute Code(s): F43.10 - Post-traumatic stress disorder, unspecified (4) Suicide attempt: Status: Acute Code(s): T14.91XA - Suicide attempt, initial encounter Assessment and Plan: cv. Signed [address] OP meds Collateral from [facility] Team B Anticipate brief hospitalization. Patient educated on: diagnosis Informed Consent: understands Reason for continued inpatient stay Substantial Risk for: harm to self
[2020-10-18] MEDS: Diclofenac Sodium Delayed Rel 75 MG TABLET.DR PO ×2 (08:34→20:46)
[2020-10-18] MEDS: Cariprazine HCl 3 MG CAPSULE 6 MG PO (08:34)
[2020-10-18 08:35] VITALS: BP 111/69; PULSE 60
[2020-10-18] MEDS: clonazePAM 1 MG TABLET PO ×2 (08:35→20:47)
[2020-10-18] MEDS: cloNIDine HCL 0.1 MG TABLET PO ×3 (08:35→20:46)
[2020-10-18] MEDS: Gabapentin 300 MG CAPSULE PO (08:36)
[2020-10-18] MEDS: Sertraline HCL 100 MG TABLET PO (08:36)
[2020-10-18] MEDS: Nicotine 21 MG PATCH.TD24 TRANSDERMA (10:29)
[2020-10-18] MEDS: clonazePAM 0.5 MG TABLET PO (12:28)
[2020-10-18 14:35] VITALS: BP 122/70; PULSE 76
[2020-10-18] MEDS: Sertraline HCL 50 MG TABLET PO (14:37)
[2020-10-18 16:37] VITALS: BP 107/63; PULSE 55; TEMP 36.2
[2020-10-18 20:46] VITALS: BP 105/72; PULSE 66
[2020-10-18] MEDS: Gabapentin 100 MG CAPSULE 200 MG PO (20:47)
[2020-10-18] MEDS: diphenhydrAMINE HCL 25 MG TABLET PO (20:48)
[2020-10-19 05:05] VITALS: BP 97/54; PULSE 64; RESP 16; TEMP 36; O2SAT 98
[2020-10-19] MEDS: Omeprazole 20 MG CAPSULE.DR PO (05:52)
[2020-10-19] MEDS: Diclofenac Sodium Delayed Rel 75 MG TABLET.DR PO ×2 (08:07→20:38)
[2020-10-19] MEDS: Gabapentin 300 MG CAPSULE PO (08:07)
[2020-10-19] MEDS: clonazePAM 1 MG TABLET PO ×2 (08:07→20:38)
[2020-10-19] MEDS: Sertraline HCL 50 MG TABLET 150 MG PO (08:07)
[2020-10-19] MEDS: cloNIDine HCL 0.1 MG TABLET PO ×3 (08:07→20:37)
[2020-10-19] MEDS: Nicotine 21 MG PATCH.TD24 TRANSDERMA (08:08)
[2020-10-19] MEDS: Cariprazine HCl 3 MG CAPSULE 6 MG PO (08:08)
--- NOTE | 2020-10-19 08:42 | HO.PSYCHPN ---
Subjective Subjective Date of Service: 10/19/20 Reason For Visit: SI Subjective Notes: Conditional Voluntary and 3 Day Interim History: Mood better. No SI. Talked about needing space to clear my thoughts . Reflective with mature responses. 3d up on Tue. Ct meds Medication Compliance: Yes Side effects from medications: No Attending Groups: Yes Review of Systems Review of Systems Yes all other systems are reviewed and are negative Mental Status Exam Mental Status Exam Patient Appearance: Disheveled Patient Orientation: Person, Place, Time and Situation Level of Consciousness: Awake Patient Behavior: Appropriate and Anxious Mood Description: Depressed, Anxious and Flat Affect Description: Anxious Patient Cognition Impaired: No Ability to Follow Directions: Good Speech Pattern: Clear Memory Description: Intact Hallucinations: None Thought Process: Intact Thought Content: positive for Suicidal Ideation (denies) Depressive Symptoms: Difficulty Concentrating Judgement: Fair Diagnostics Vital Signs (24Hr): Vital Signs - 24 hr 10/18/20 14:35 10/18/20 16:37 10/18/20 20:46 Temperature 97.1 F Pulse Rate 76 55 66 Respiratory Rate Blood Pressure 122/70 107/63 105/72 Pulse Oximetry 10/19/20 05:05 Temperature 96.8 F Pulse Rate 64 Respiratory Rate 16 Blood Pressure 97/54 L Pulse Oximetry 98 Body Mass Index 31.8 Labs Results: 10/16/20 14:06 10/16/20 19:06 Imaging Radiology Impressions: ITS Impressions Chest X-Ray 10/16/20 13:05 IMPRESSION: No significant acute parenchymal disease. Medications Medications Current Medications Generic Name Dose Route Start Last Admin Trade Name Freq PRN Reason Stop Dose Admin Acetaminophen 650 mg 10/17/20 21:08 Acetaminophen 325 Mg Tablet PO Q6H PRN Headache/Pain Mild Scale (1-3) Al Hydroxide/Mg Hydroxide 30 ml 10/17/20 17:55 Magnesium Hydrox/Alum Hydrox 30 Ml Oral.Susp PO Q6H PRN Heartburn/Nausea Cariprazine 6 mg 10/18/20 09:00 10/19/20 08:08 Cariprazine Hcl 3 Mg Capsule PO 6 mg DAILY [facility] Administration Clonazepam 1 mg 10/17/20 21:45 10/19/20 08:07 Clonazepam 1 Mg Tablet PO 1 mg BID JOSE Administration Clonazepam 0.5 mg 10/18/20 12:00 10/18/20 12:28 Clonazepam 0.5 Mg Tablet PO 0.5 mg DAILY@1200 JOSE Administration Clonidine HCl 0.1 mg 10/17/20 21:45 10/19/20 08:07 Clonidine Hcl 0.1 Mg Tablet PO 0.1 mg TID JOSE Administration Protocol Diclofenac Sodium 75 mg 10/17/20 21:46 10/19/20 08:07 Diclofenac Sodium Delayed Rel 75 Mg Tablet. PO 75 mg BID JOSE Administration Diphenhydramine HCl 25 mg 10/18/20 10:47 10/18/20 20:48 Diphenhydramine Hcl 25 Mg Tablet PO 25 mg BEDTIME PRN Administration Insomnia Gabapentin 300 mg 10/18/20 09:00 10/19/20 08:07 Gabapentin 300 Mg Capsule PO 300 mg DAILY [facility] Administration Gabapentin 200 mg 10/17/20 21:00 10/18/20 20:47 Gabapentin 100 Mg Capsule PO 200 mg BEDTIME JOSE Administration Magnesium Hydroxide 30 ml 10/17/20 17:55 Milk Of Magnesia 30 Ml Oral.Susp PO DAILY PRN Constipation Nicotine 21 mg 10/18/20 09:00 10/19/20 08:08 Nicotine 21 Mg Patch.Td24 TRANSDERMA 21 mg DAILY [facility]SE Administration Nicotine Polacrilex 2 mg 10/17/20 17:55 Nicotine Polacrilex 2 Mg Gum BUCCAL Q2H PRN Nicotine Cravings Non-Formulary Medication 1 each 10/19/20 08:35 Patient Own Medication [place] 0800 [facility] Omeprazole 20 mg 10/18/20 06:30 10/19/20 05:52 Omeprazole 20 Mg Capsule. PO 20 mg DAILY@0630 [facility] Administration Sertraline HCl 150 mg 10/18/20 10:45 10/19/20 08:07 Sertraline Hcl 50 Mg Tablet PO 150 mg DAILY JOSE Administration Trazodone HCl 50 mg 10/17/20 17:55 Trazodone Hcl 50 Mg Tablet PO BEDTIME PRN Insomnia Allergies Allergies Allergy/AdvReac Type Severity Reaction Status Date / Time SEASONAL ALLERGIES Allergy Intermediate RUNNY NOSE Uncoded 07/24/20 15:20 WATERY EYES Assessment & Plan Greater than 50% of the session was spent on counseling and/or coordination of care Ct meds. Group therapy. Coordinate with [facility] Team B
[2020-10-19] MEDS: clonazePAM 0.5 MG TABLET PO (11:30)
[2020-10-19 19:50] VITALS: BP 111/72; PULSE 78; TEMP 36.3
[2020-10-19 20:37] VITALS: BP 111/72; PULSE 78
[2020-10-19] MEDS: Gabapentin 100 MG CAPSULE 200 MG PO (20:37)
[2020-10-19] MEDS: traZODone HCL 50 MG TABLET PO (20:39)
[2020-10-19] MEDS: diphenhydrAMINE HCL 25 MG TABLET PO (22:15)
[2020-10-20 05:25] VITALS: BP 106/58; PULSE 71; RESP 16; TEMP 36; O2SAT 96
[2020-10-20] MEDS: Omeprazole 20 MG CAPSULE.DR PO (05:46)
[2020-10-20 08:24] VITALS: BP 106/58; PULSE 71
[2020-10-20] MEDS: Diclofenac Sodium Delayed Rel 75 MG TABLET.DR PO ×2 (08:24→20:12)
[2020-10-20] MEDS: cloNIDine HCL 0.1 MG TABLET PO ×3 (08:24→20:11)
[2020-10-20] MEDS: Gabapentin 300 MG CAPSULE PO (08:25)
[2020-10-20] MEDS: Sertraline HCL 50 MG TABLET 150 MG PO (08:25)
[2020-10-20] MEDS: clonazePAM 1 MG TABLET PO ×2 (08:25→20:11)
[2020-10-20] MEDS: Cariprazine HCl 3 MG CAPSULE 6 MG PO (08:26)
[2020-10-20] MEDS: Nicotine 21 MG PATCH.TD24 TRANSDERMA (08:27)
--- NOTE | 2020-10-20 08:33 | P.PNPSI_ITS ---
Subjective Subjective Date of Service: 10/20/20 Reason For Visit: SI Interim History: Mood better. No SI. Talked about needing space to clear my thoughts . Reflective with mature responses. 3d up on Tue. Ct meds. Steadily improving Mental Status Exam Mental Status Exam Patient Appearance: Disheveled Patient Orientation: Person, Place, Time and Situation Level of Consciousness: Awake Patient Behavior: Appropriate and Anxious Mood Description: Depressed, Anxious and Flat Affect Description: Anxious Patient Cognition Impaired: No Ability to Follow Directions: Good Speech Pattern: Clear Memory Description: Intact Diagnostics Vital Signs (24Hr): Vital Signs - 24 hr 10/19/20 19:50 10/19/20 20:37 10/20/20 05:25 Temperature 97.4 F 96.8 F Pulse Rate 78 78 71 Respiratory Rate 16 Blood Pressure 111/72 111/72 106/58 L Pulse Oximetry 96 10/20/20 08:24 Temperature Pulse Rate 71 Respiratory Rate Blood Pressure 106/58 L Pulse Oximetry Body Mass Index 31.8 Labs Results: 10/16/20 14:06 10/16/20 19:06 Imaging Radiology Impressions: ITS Impressions Chest X-Ray 10/16/20 13:05 IMPRESSION: No significant acute parenchymal disease. Medications Medications Current Medications Generic Name Dose Route Start Last Admin Trade Name Freq PRN Reason Stop Dose Admin Acetaminophen 650 mg 10/17/20 21:08 Acetaminophen 325 Mg Tablet PO Q6H PRN Headache/Pain Mild Scale (1-3) Al Hydroxide/Mg Hydroxide 30 ml 10/17/20 17:55 Magnesium Hydrox/Alum Hydrox 30 Ml Oral.Susp PO Q6H PRN Heartburn/Nausea Cariprazine 6 mg 10/18/20 09:00 10/20/20 08:26 Cariprazine Hcl 3 Mg Capsule PO 6 mg DAILY [facility] Administration Clonazepam 1 mg 10/17/20 21:45 10/20/20 08:25 Clonazepam 1 Mg Tablet PO 1 mg BID [facility] Administration Clonazepam 0.5 mg 10/18/20 12:00 10/19/20 11:30 Clonazepam 0.5 Mg Tablet PO 0.5 mg DAILY@1200 [facility] Administration Clonidine HCl 0.1 mg 10/17/20 21:45 10/20/20 08:24 Clonidine Hcl 0.1 Mg Tablet PO 0.1 mg TID JOSE Administration Protocol Diclofenac Sodium 75 mg 10/17/20 21:46 10/20/20 08:24 Diclofenac Sodium Delayed Rel 75 Mg Tablet. PO 75 mg BID [facility] Administration Diphenhydramine HCl 25 mg 10/18/20 10:47 10/19/20 22:15 Diphenhydramine Hcl 25 Mg Tablet PO 25 mg BEDTIME PRN Administration Insomnia Gabapentin 300 mg 10/18/20 09:00 10/20/20 08:25 Gabapentin 300 Mg Capsule PO 300 mg DAILY [facility] Administration Gabapentin 200 mg 10/17/20 21:00 10/19/20 20:37 Gabapentin 100 Mg Capsule PO 200 mg BEDTIME [facility]SE Administration Magnesium Hydroxide 30 ml 10/17/20 17:55 Milk Of Magnesia 30 Ml Oral.Susp PO DAILY PRN Constipation Nicotine 21 mg 10/18/20 09:00 10/20/20 08:27 Nicotine 21 Mg Patch.Td24 TRANSDERMA 21 mg DAILY [facility] Administration Nicotine Polacrilex 2 mg 10/17/20 17:55 Nicotine Polacrilex 2 Mg Gum BUCCAL Q2H PRN Nicotine Cravings Patient Own 1 each 10/19/20 08:35 10/19/20 13:23 Medication Adderal PO Not Given Xl 25 Mg 0800 [facility] Omeprazole 20 mg 10/18/20 06:30 10/20/20 05:46 Omeprazole 20 Mg Capsule. PO 20 mg DAILY@0630 [facility] Administration Sertraline HCl 150 mg 10/18/20 10:45 10/20/20 08:25 Sertraline Hcl 50 Mg Tablet PO 150 mg DAILY [facility] Administration Trazodone HCl 50 mg 10/17/20 17:55 10/19/20 20:39 Trazodone Hcl 50 Mg Tablet PO 50 mg BEDTIME PRN Administration Insomnia Allergies Allergies Allergy/AdvReac Type Severity Reaction Status Date / Time SEASONAL ALLERGIES Allergy Intermediate RUNNY NOSE Uncoded 07/24/20 15:20 WATERY EYES Assessment & Plan Assessment & Plan (1) Bipolar disorder, unspecified: Status: Acute Code(s): F31.9 - Bipolar disorder, unspecified (2) Borderline personality disorder: Status: Acute Code(s): F60.3 - Borderline personality disorder (3) Posttraumatic stress disorder: Status: Acute Code(s): F43.10 - Post-traumatic stress disorder, unspecified (4) Suicide attempt: Status: Acute Code(s): T14.91XA - Suicide attempt, initial encounter Assessment and Plan: cv. Signed [address] OP meds Collateral from [facility] Team B Anticipate brief hospitalization. Greater than 50% of the session was spent on counseling and/or coordination of care
[2020-10-20] MEDS: clonazePAM 0.5 MG TABLET PO (12:11)
[2020-10-20 14:21] VITALS: BP 122/67; PULSE 88
[2020-10-20 20:11] VITALS: BP 113/72; PULSE 86
[2020-10-20] MEDS: Gabapentin 100 MG CAPSULE 200 MG PO (20:11)
[2020-10-20] MEDS: traZODone HCL 50 MG TABLET PO (20:11)
[2020-10-20 20:20] VITALS: BP 113/72; PULSE 86; TEMP 36.2
[2020-10-21 05:45] VITALS: BP 127/76; PULSE 85; RESP 18; TEMP 36.4; O2SAT 94
[2020-10-21] MEDS: Omeprazole 20 MG CAPSULE.DR PO (06:03)
--- NOTE | 2020-10-21 08:20 | P.DS_ITS ---
DS: Providers Provider Date of admission: 10/17/20 17:53 Primary care physician: Unknown Physician DS: Diagnosis Discharge Diagnosis (1) Bipolar disorder, unspecified: Status: Acute (2) Borderline personality disorder: Status: Acute (3) Posttraumatic stress disorder: Status: Acute (4) Suicide attempt: Status: Acute DS: Medications Discharge Medications Home Medications: Home Medications Medication Instructions Recorded Confirmed [id number] 1 tab PO DAILY PRN 10/17/20 10/17/20 [Excedrin Migraine] cariprazine [Vraylar] 6 mg PO DAILY 10/17/20 10/17/20 clonazepam 0.5 mg PO DAILY@1200 PRN 10/17/20 10/17/20 clonazepam 1 mg PO BID PRN 10/17/20 10/17/20 clonidine HCl 0.1 mg PO TID 10/17/20 10/17/20 dextroamphetamine-amphetamine 25 mg PO QAM 10/17/20 10/17/20 diclofenac sodium 75 mg PO BID 10/17/20 10/17/20 diphenhydramine HCl [Banophen] 25 mg PO BEDTIME PRN 10/17/20 10/17/20 gabapentin 200 mg PO BEDTIME 10/17/20 10/17/20 gabapentin 300 mg PO DAILY 10/17/20 10/17/20 pantoprazole 40 mg PO DAILY 10/17/20 10/17/20 sertraline 100 mg PO DAILY 10/17/20 10/17/20 Discharge Plan Discharge Patient Disposition: Home, Self-Care Referrals: Latha Ray, therapist [Other] - 10/27/20 2:00 pm (Visit by telehealth) Lottie Higgins MD [Physician] - 10/27/20 10:00 am (in office) Chang Ball NP [Referring] - 11/14/20 9:00 am (Telehealth appointment) Discharge Medications: New trazodone 50 mg Tablet 50 mg PO BEDTIME PRN (Reason: Insomnia) 30 Days Qty: 30 RF: 0 Continued clonazepam 0.5 mg tablet 0.5 mg PO DAILY@1200 PRN (Reason: Anxiety) 1 Days Qty: 2 RF: 0 clonazepam 1 mg tablet 1 mg PO BID PRN (Reason: Anxiety) 1 Days Qty: 2 RF: 0 pantoprazole 40 mg tablet,delayed release (DR/EC) 40 mg PO DAILY 1 Days Qty: 1 RF: 0 gabapentin 300 mg capsule 300 mg PO DAILY 1 Days Qty: 1 RF: 0 diclofenac sodium 75 mg tablet,delayed release (DR/EC) 75 mg PO BID 1 Days Qty: 2 RF: 0 gabapentin 100 mg capsule 200 mg PO BEDTIME 1 Days Qty: 1 RF: 0 Excedrin Migraine 250-250-65 mg Tablet 1 tab PO DAILY PRN (Reason: Headache) 5 Days Qty: 5 RF: 0 dextroamphetamine-amphetamine 25 mg capsule,extended release 24hr 25 mg PO QAM 1 Days Qty: 1 RF: 0 Vraylar 6 mg capsule 6 mg PO DAILY 30 Days Qty: 30 RF: 0 clonidine HCl 0.1 mg tablet 0.1 mg PO TID 1 Days Qty: 3 RF: 0 Changed sertraline 100 mg tablet 150 mg PO DAILY 30 Days Qty: 45 RF: 0 Discontinued diphenhydramine HCl [Banophen] 25 mg capsule 25 mg PO BEDTIME PRN (Reason: insomnia) RF: 0 Discharge Orders: Discharge Order (Routine); Ordered 10/21/20 Ordered By: Wil Zaragoza Diet: regular diet Activity on Discharge: As tolerated Stand Alone Forms: Community Support Discharge Date/Time: 10/21/20 13:00 Visit Report Forms: Patient Portal Discharge page Care Plan Goals: stbilize emotions resolve SI Health Concerns: emotional dysregulation SI Plan of Treatment: Ct w CHD team Meds/therapy Data Data Completed and Pending Completed studies during hospitalization [Text1]: 10/16/20 10/16/20 10/16/20 13:30 13:35 14:05 WBC RBC Hgb Hct MCV MCH MCHC RDW Plt Count MPV Immature Gran % (Auto) Neut % (Auto) Lymph % (Auto) B[place] % (Auto) Eos % (Auto) Baso % (Auto) Lymph # (Auto) [place] # (Auto) Eos # (Auto) Baso # (Auto) Abs Immat Gran (auto) Absolute Neuts (auto) Absolute Nucleated RBC Nucleated RBC % (auto) PT INR APTT ABG pH 7.37 ABG pCO2 46 H ABG pO2 76 L ABG HCO3 26 ABG O2 Saturation 95.4 ABG Base Excess -0.2 Carboxyhemoglobin 6.1 H* Oxygen Given 2 L Sodium Potassium Chloride Carbon Dioxide Anion Gap BUN Creatinine Estim Creat Clear Calc Estimated GFR Random Glucose Calcium Total Bilirubin AST ALT Alkaline Phosphatase Total Protein Albumin Urine Color YELLOW Urine Appearance CLEAR Urine pH 6.0 Ur Specific Winder 1.015 Urine Protein NEG Urine Glucose (UA) NEG Urine Ketones NEG Urine Blood 3+ H Urine Nitrite NEG Ur Leukocyte Esterase NEG Urine RBC 0 Urine WBC 0 Ur Squamous Epith Cells TRACE Amorphous Sediment TRACE Urine Bacteria NONE Urine Test NEGATIVE Salicylates Urine Opiates Screen Acetaminophen Ur Barbiturates Screen Ur Phencyclidine Scrn Ur Amphetamines Screen U Benzodiazepines Scrn Urine Cocaine Screen U Marijuana (THC) Screen Ethyl Alcohol COVID-19 ([facility]) COVID-19 Clin Com 10/16/20 10/16/20 10/16/20 14:05 14:06 14:06 WBC 11.3 H RBC 4.69 Hgb 14.4 Hct 42.6 MCV 90.8 MCH 30.7 MCHC 33.8 RDW 14.8 Plt Count 492 H MPV 10.2 Immature Gran % (Auto) 0.4 Neut % (Auto) 64.2 Lymph % (Auto) 26.4 Borden % (Auto) 7.4 Eos % (Auto) 0.9 Baso % (Auto) 0.7 Lymph # (Auto) 3.0 [place] # (Auto) 0.8 Eos # (Auto) 0.1 Baso # (Auto) 0.1 Abs Immat Gran (auto) 0.04 H Absolute Neuts (auto) 7.3 Absolute Nucleated RBC 0.000 Nucleated RBC % (auto) 0.0 PT INR APTT ABG pH ABG pCO2 ABG pO2 ABG HCO3 ABG O2 Saturation ABG Base Excess Carboxyhemoglobin Oxygen Given Sodium 136 Potassium 4.6 Chloride 103 Carbon Dioxide 25 Anion Gap 13 BUN 12 Creatinine 0.77 Estim Creat Clear Calc 102.2 Estimated GFR > 60 Random Glucose 118 H Calcium 9.6 Total Bilirubin 0.5 AST 19 ALT 21 Alkaline Phosphatase 74 Total Protein 7.0 Albumin 4.2 Urine Color Urine Appearance Urine pH Ur Specific Winder Urine Protein Urine Glucose (UA) Urine Ketones Urine Blood Urine Nitrite Ur Leukocyte Esterase Urine RBC Urine WBC Ur Squamous Epith Cells Amorphous Sediment Urine Bacteria Urine Test Salicylates < 5.0 L Urine Opiates Screen Not Detected Acetaminophen < 1 Ur Barbiturates Screen Not Detected Ur Phencyclidine Scrn Not Detected Ur Amphetamines Screen POSITIVE H U Benzodiazepines Scrn POSITIVE H Urine Cocaine Screen Not Detected U Marijuana (THC) Screen POSITIVE H Ethyl Alcohol COVID-19 ([facility]) COVID-19 [employer] Com 10/16/20 10/16/20 10/16/20 14:06 14:06 19:06 WBC RBC Hgb Hct MCV MCH MCHC RDW Plt Count MPV Immature Gran % (Auto) Neut % (Auto) Lymph % (Auto) [place] % (Auto) Eos % (Auto) Baso % (Auto) Lymph # (Auto) [place] # (Auto) Eos # (Auto) Baso # (Auto) Abs Immat Gran (auto) Absolute Neuts (auto) Absolute Nucleated RBC Nucleated RBC % (auto) PT 12.3 INR 1.0 APTT 34.8 ABG pH ABG pCO2 ABG pO2 ABG HCO3 ABG O2 Saturation ABG Base Excess Carboxyhemoglobin Oxygen Given Sodium 141 Potassium 3.6 D Chloride 114 H Carbon Dioxide 19 L Anion Gap 12 BUN 9 Creatinine 0.55 Estim Creat Clear Calc 143.1 Estimated GFR > 60 Random Glucose 89 Calcium 6.8 L D Total Bilirubin 0.4 AST 12 ALT 13 Alkaline Phosphatase 49 D Total Protein 4.5 L D Albumin 2.7 L D Urine Color Urine Appearance Urine pH Ur Specific Winder Urine Protein Urine Glucose (UA) Urine Ketones Urine Blood Urine Nitrite Ur Leukocyte Esterase Urine RBC Urine WBC Ur Squamous Epith Cells Amorphous Sediment Urine Bacteria Urine Test Salicylates < 5.0 L Urine Opiates Screen Acetaminophen < 1 Ur Barbiturates Screen Ur Phencyclidine Scrn Ur Amphetamines Screen U Benzodiazepines Scrn Urine Cocaine Screen U Marijuana (THC) Screen Ethyl Alcohol < 10 COVID-19 ([facility]) COVID-19 Clin Com 10/17/20 03:10 WBC RBC Hgb Hct MCV MCH MCHC RDW Plt Count MPV Immature Gran % (Auto) Neut % (Auto) Lymph % (Auto) [place] % (Auto) Eos % (Auto) Baso % (Auto) Lymph # (Auto) [place] # (Auto) Eos # (Auto) Baso # (Auto) Abs Immat Gran (auto) Absolute Neuts (auto) Absolute Nucleated RBC Nucleated RBC % (auto) PT INR APTT ABG pH ABG pCO2 ABG pO2 ABG HCO3 ABG O2 Saturation ABG Base Excess Carboxyhemoglobin Oxygen Given Sodium Potassium Chloride Carbon Dioxide Anion Gap BUN Creatinine Estim Creat Clear Calc Estimated GFR Random Glucose Calcium Total Bilirubin AST ALT Alkaline Phosphatase Total Protein Albumin Urine Color Urine Appearance Urine pH Ur Specific Winder Urine Protein Urine Glucose (UA) Urine Ketones Urine Blood Urine Nitrite Ur Leukocyte Esterase Urine RBC Urine WBC Ur Squamous Epith Cells Amorphous Sediment Urine Bacteria Urine Test Salicylates Urine Opiates Screen Acetaminophen Ur Barbiturates Screen Ur Phencyclidine Scrn Ur Amphetamines Screen U Benzodiazepines Scrn Urine Cocaine Screen U Marijuana (THC) Screen Ethyl Alcohol COVID-19 ([facility]) Negative COVID-19 Clin Com See Note Imaging Diagnostic Imaging Impressions Chest X-Ray 10/16/20 13:05 IMPRESSION: No significant acute parenchymal disease. DS: Summary Hospital Course Hospital Course: 5 WF well known to and TW presents after CHD supervisor title called for Crisis evaluation. Pt texted SI and was going to use helium with a paper bag over her head. Today is much calmer says SI was fleeting. [place] abandoned at the time. Stressors are: Relationship with GF are confusing. GF sleeps with many men and tells me about it...also drinking a lot . Helped cousin who now does not contact her after he has a GF. Known Hx of Mood disorder/PTSD and Borderline profile and Hx of polysubstance use in past. States she feels stabilized by CHD support. Has had X similar presentation here and other hospitals. Past Psychiatric History: X area hospitalizations but less frequent now. Extensive CHD support. Sees Chang Ball, [facility] manages meds 7 days a week with packaging meds for pm, one day at a time. On M5 her behavior was uneventful. Stated she needed some space to clear her thoughts. Most of her conflicts were resolved by the time she came up to . Si gned a 3 day notice . In contrast to previous presentations pt appeared more mellow/more insightful and mature. Dose of Zoloft was increased. By DC time she was stable w no SI Time spent discussing smoking cessation with patient: more than 10 minutes Status at Discharge Functional status at discharge: independent ambulation Overall status at discharge: patient is back to baseline Time Spent with Patient Time attestation: Total time spent providing and/or coordinating discharge services: Time spent: Greater than 30 minutes
[2020-10-21] MEDS: Cariprazine HCl 3 MG CAPSULE 6 MG PO (08:27)
[2020-10-21] MEDS: Gabapentin 300 MG CAPSULE PO (08:27)
[2020-10-21] MEDS: clonazePAM 1 MG TABLET PO (08:27)
[2020-10-21] MEDS: Diclofenac Sodium Delayed Rel 75 MG TABLET.DR PO (08:28)
[2020-10-21] MEDS: Sertraline HCL 50 MG TABLET 150 MG PO (08:28)
[2020-10-21 08:29] VITALS: BP 127/76; PULSE 85
[2020-10-21] MEDS: cloNIDine HCL 0.1 MG TABLET PO (08:29)
[2020-10-21] MEDS: Nicotine 21 MG PATCH.TD24 TRANSDERMA (08:30)
[2020-10-21] MEDS: clonazePAM 0.5 MG TABLET PO (11:33)
== END 2020-10-21 13:00 | disposition home or self-care (01) | DRG 885 ==
LOC: HO.ED 10-17 08:20 → HO.PM5 10-17 18:43
PROVIDERS: Emergency Medicine Emergency Medical Services; Nurse Practitioner Primary Care; Admitting Provider Psychiatry & Neurology Psychiatry; Emergency Provider Internal Medicine; Visit Provider Psychiatry & Neurology Psychiatry
DX: F31.9 Bipolar disorder, unspecified (principal); R45.851 Suicidal ideations; F17.210 Nicotine dependence, cigarettes, uncomplicated; F60.3 Borderline personality disorder; F43.10 Post-traumatic stress disorder, unspecified; Z91.5 Personal history of self-harm; Z71.6 Tobacco abuse counseling; Z20.828 Contact with and (suspected) exposure to other viral communicable diseases; Z79.899 Other long term (current) drug therapy
CPT/HCPCS: 36415; 71045; 80053; 80307; 80320; 81001; 81025; 82375; 82803; 85025; 85610; 85730; 87635; 93005; 99223; 99232; 99239; 99285; G0480; Q0163

== ENCOUNTER 2020-12-02 09:13 | Emergency (ER) | payer MEDICARE, MEDICAID, SELFPAY ==
--- NOTE | 2020-12-02 10:01 | CT_ITS ---
EXAMINATION: CT HEAD WITHOUT CONTRAST CLINICAL INFORMATION: Headache and forehead swelling COMPARISON: Previous head CT August 2017 TECHNIQUE: Contiguous axial imaging was performed from the skull base to vertex without intravenous administration of contrast. This CT examination was performed using dose optimization techniques as appropriate, variously including the following: *Automated exposure control *Adjustment of mA and/or kV according to patient size (this includes techniques or standardized protocols for targeted exams where dose is matched to indication/reason for exam; i.e. extremities or head) *Use of iterative reconstruction technique DLP: 744 mGy-cm FINDINGS: There is no evidence of acute intracranial hemorrhage or territorial infarction. No abnormal mass effect or midline shift is seen. Bey to white matter differentiation is well preserved. No extra-axial fluid collections are identified. The ventricles are normal in size. There is no abnormal attenuation within the brain parenchyma. The osseous structures and soft tissues are normal. There is mild soft tissue opacification of the right side of the sphenoid sinus. There is under aeration or hypoplasia of the right frontal sinus. The mastoid air cells, middle ears and visualized portions of the paranasal sinuses are otherwise well aerated and clear.. CT/CT head/brain wo con IMPRESSION: Mild inflammatory change in the sphenoid sinus otherwise unremarkable exam.
--- NOTE | 2020-12-02 10:03 | ED_ITS ---
HPI - Headache General Chief Complaint: Headache Stated Complaint: headache Time Seen by Provider: 12/02/20 09:19 Source: patient Mode of arrival: ambulatory Limitations: no limitations History of Present Illness HPI Narrative: 35yoF c PMHx of COPD, chronic thrombocytopenia, anxiety disorder, depression, vitamin B12 deficiency, opiate dependence, prior drug overdose, ADHD with surgical history of splenectomy presenting to the ED c c/o gradual onset frontal headache tingling in sensation x 3 days c associated swelling of the forehead and top of the head that was noticed today by her outreach educator from [facility] and advised her to come to the ED for further evaluation treatment. Patient reports she has a history of migraine headaches which she usually takes Imitrex for and she has been taking Imitrex since Tuesday and no symptomatic relief. Reports she has associated photophobia and nasal congestion. Reports that the pain is worse with palpitation of the forehead and the top of the head and with leaning over forward. Denies recent trauma, head injury, close contact with similar symptoms, known CO exposure, tick bite, recent spinal/epidural procedure or new medication. Denies fevers, chills, dizziness, changes in vision, ear pain, nausea/vomiting, chest pain or shortness of breath, focal weakness, cough or any other symptoms complaints or concerns at this time. MD elicited complaint: headache Related Data Previous Rx's Medication Instructions Recorded Excedrin Migraine 1 tab PO DAILY PRN 5 Days #5 tab 10/21/20 Vraylar 6 mg PO DAILY 30 Days #30 cap 10/21/20 clonazepam 0.5 mg PO DAILY@1200 PRN 1 Days #2 10/21/20 tab clonazepam 1 mg PO BID PRN 1 Days #2 tab 10/21/20 clonidine HCl 0.1 mg PO TID 1 Days #3 tab 10/21/20 dextroamphetamine-amphetamine 25 mg PO QAM 1 Days #1 cap 10/21/20 diclofenac sodium 75 mg PO BID 1 Days #2 tab 10/21/20 gabapentin 200 mg PO BEDTIME 1 Days #1 cap 10/21/20 gabapentin 300 mg PO DAILY 1 Days #1 cap 10/21/20 pantoprazole 40 mg PO DAILY 1 Days #1 tab 10/21/20 sertraline 150 mg PO DAILY 30 Days #45 tab 10/21/20 trazodone 50 mg PO BEDTIME PRN 30 Days #30 10/21/20 tab amoxicillin-pot clavulanate 1 tab PO BID 10 Days #20 tab 12/02/20 [Augmentin] imjcvdtjaj-wrtxpygivzvto-borx 1 cap PO Q8H PRN #10 cap 12/02/20 [Fioricet] prednisone 40 mg PO DAILY 5 Days #10 tab 12/02/20 Allergies Allergy/AdvReac Type Severity Reaction Status Date / Time SEASONAL ALLERGIES Allergy Intermediate RUNNY NOSE Uncoded 07/24/20 15:20 WATERY EYES Review of Systems Review of Systems: Constitutional : No changes in activity, No lethargy, No recent prior head injury, No agitation, No increased fussiness Head: + Facial/forehead swelling, ENT/Mouth : + Nasal discharge/drainage, No Ear Pain, Eyes: No Eye Pain, No Swelling, No Redness, No Foreign Body, No Vision Changes Cardiovascular : No Chest Pain, No SOB Respiratory : No Cough Gastrointestinal : No Nausea, No Vomiting, No abdominal Pain Genitourinary : No Dysuria, No Urinary Frequency, No Urinary Incontinence, No Urgency, No Flank Pain Musculoskeletal : No joint pain, No neck stiffness, No back pain/injury Skin : No lacerations Neuro : + Headache, No unsteady gait, No Paresthesias, No Loss of Consciousness, No altered mental status, No dizziness Denies past medical history of HIV, recent trauma, coagulopathy, recent spinal/ epidural procedure, new medication, close contacts with similar symptoms, tick bite, or known CO2 exposure. Yes all other systems are reviewed and are negative PMFSH Past Medical History Medical History Anemia Anxiety B12 deficiency Bipolar disorder, unspecified Borderline personality disorder Cervical cancer COPD (chronic obstructive pulmonary disease) Depression Depression Migraines Posttraumatic stress disorder Surgical History History of total splenectomy Social History Social History Smoking Status: Current every day smoker Tobacco Type: Cigarette Packs Per Day: 2 Cigarettes Per Day: 40.0 Substance Use Type: Marijuana Advance Directives: No Advance Directives Information Provided: No service: No 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 Blood pressure normal. Heart rate normal. Respiration rate normal. Temperature normal. Oxygen saturation normal. Appearance: Alert. Oriented X3. No acute distress. Head: Patient with soft tissue swelling to the frontal aspect of the patient's head with tenderness to palpation. Otherwise the rest of the head exam is Heather l. Able to rotate head bilaterally. No Liriano signs noted. No raccoon eyes noted. Eyes: PERRLA. EOMI. No nystagmus noted. Conjunctiva and sclera normal. Eyelids normal. Corneal reflex normal. ENT: EAC normal. TM's Normal. No septal hematoma noted. No hemotympanum noted. Hearing normal. Pharynx normal. Uvula midline. tongue midline. Moist mucous membranes. No trismus noted. No drooling noted. No muffled voice noted. Neck: Normal inspection. Neck supple. FROM. No adenopathy. Thyroid Normal. No meningeal signs. No neck mass noted. CVS: Normal heart rate and rhythm. Heart sound normal. No murmurs noted. Pulses normal throughout. Respiratory: No respiratory distress. Painless inspiration. Breath sounds normal. No wheezes/rales/rhonchi noted. Chest nontender. No accessory muscle u piter noted or decreased air movement noted. Back: Full range of motion noted. Skin: Skin warm and dry. Normal skin color. Normal skin turgor. No rashes/lesions/lacerations noted. Extremities: Extremities exhibit normal range of motion. Extremities nontender. Able to shrug shoulders bilaterally and keep up against resistance. Neuro: Oriented X 3. No motor deficit. No sensory deficit. Reflexes normal. Moving all extremities. No focal motor deficits. Cranial nerves II-XI intact bilaterally. Facial strength normal. Normal cognition. Speech normal. Gait normal. Strength 5/5 throughout. No pronator drift. No tremor noted. No fasciculations noted. Muscle tone normal throughout. No asterixis noted. Clvbsx-hx-vhkd test normal. Heel to dunlap test normal. No rigidity noted. Course Course Course Narrative: 10am - 35yoF c PMHx of COPD, chronic thrombocytopenia, anxiety disorder, depression, vitamin B12 deficiency, opiate dependence, prior drug overdose, ADHD with surgical history of splenectomy presenting to the ED c c/o gradual onset frontal headache tingling in sensation x 3 days c associated swelling of the forehead/frontal aspect of scalp that started today. Reports she has associated photophobia and nasal congestion. Reports that the pain is worse with palpitation of the forehead and the top of the head and with leaning over forward. - On exam patient is alert and oriented x3. Not in any acute distress. Vital signs are stable within normal limits. No focal neuro deficits noted. Patient is noted to have soft tissue swelling and tenderness to palpation at the fr ontal/forehead aspect of the scalp. - Plan: Labs, CT scan of brain. Provide a L of IV fluids and 2 Fioricet and re- evaluate. Reevaluation(s) Reevaluation #1: - Labs WNL. - CT scan of brain revealed mild inflammatory changes in the sphenoid sinus otherwise unremarkable exam. - patient reports moderate symptomatic relief with the Fioricet. Therefore will DC home with antibiotics for sinus infection, p.o. steroids patient reports she has had steroids in the past and has had good affection desist not like the taste and a short course of Fioricet and instructions return if any new or worsening symptoms to follow up with primary care provider/neurologist. Patient understands agrees the plan. Time: 11:54 [facility] - Headache Differential Diagnosis Differential diagnosis: Likely migraine, subarachnoid hemorrhage and sinusitis Medical Records Attestation: I reviewed the patient's medical records. Lab Data Attestation: I reviewed the patient's lab results. Result diagrams: 12/02/20 10:51 12/02/20 10:50 Labs: Lab Results 12/02/20 12/02/20 12/02/20 Range/Units 10:50 10:50 10:51 WBC 14.8 H (4.8-10.8) X10*3/uL RBC 4.61 (4.20-5.50) X10*6/uL Hgb 14.0 (12.0-16.0) g/dl Hct 41.6 (37-47) % MCV 90.2 (80-98) fL MCH 30.4 (27.0-33.0) pg MCHC 33.7 (31.0-35.0) g/dl RDW 14.5 (11.0-16.0) % Plt Count 561 H (160-400) X10*3/uL MPV 9.9 (9.4-12.3) fL Immature Gran % (Auto) 0.3 (0.0-0.4) % Neut % (Auto) 58.7 (45-73) % Lymph % (Auto) 30.8 (20-40) % [place] % (Auto) 7.5 (2-11) % Eos % (Auto) 1.8 (0-4) % Baso % (Auto) 0.9 (0-2) % Lymph # (Auto) 4.6 (1.2-4.9) X10*3/uL [place] # (Auto) 1.1 (0.1-1.2) X10*3/uL Eos # (Auto) 0.3 (0.0-0.4) X10*3/uL Baso # (Auto) 0.1 (0.0-0.2) X10*3/uL Abs Immat Gran (auto) 0.05 H (0.00-0.03) X10*3/uL Absolute Neuts (auto) 8.7 H (2.0-8.3) X10*3/uL Absolute Nucleated RBC 0.000 (0.0-0.012) X10*3/uL Nucleated RBC % (auto) 0.0 (0.0-0.2) /100WBC PT (10.8-13.0) SEC INR (0.9-1.1) APTT (24.1-38.0) SEC Sodium 138 (135-145) mmol/L Potassium 4.4 D (3.3-5.1) mmol/l Chloride 106 (96-108) mmol/L Carbon Dioxide 25 (22-29) mmol/L Anion Gap 11 L (12-20) BUN 7 L (9-16) mg/dL Creatinine 0.65 (0.5-1.4) mg/dL Estim Creat Clear Calc 121.0 Estimated GFR > 60 Random Glucose 91 (60-115) mg/dL Calcium 9.4 D (8.4-10.2) mg/dL Magnesium 2.2 (1.6-2.6) mg/dL Total Bilirubin 0.4 (0.0-1.0) mg/dL Direct Bilirubin < 0.2 (0.0-0.5) mg/dL AST 14 (5-31) U/L ALT 14 (0-31) U/L Alkaline Phosphatase 90 D (39-117) U/L Total Protein 6.7 D (6.5-8.0) g/dL Albumin 4.1 D (3.5-5.0) g/dL Beta HCG, Quant < 2 mIU/mL Coronavirus (PCR) NEGATIVE (Negative) Influenza Type A (PCR) NEGATIVE (Negative) Influenza Type B (PCR) NEGATIVE (Negative) RSV RNA Qual (PCR) NEGATIVE (Negative) 12/02/20 Range/Units 10:51 WBC (4.8-10.8) X10*3/uL RBC (4.20-5.50) X10*6/uL Hgb (12.0-16.0) g/dl Hct (37-47) % MCV (80-98) fL MCH (27.0-33.0) pg MCHC (31.0-35.0) g/dl RDW (11.0-16.0) % Plt Count (160-400) X10*3/uL MPV (9.4-12.3) fL Immature Gran % (Auto) (0.0-0.4) % Neut % (Auto) (45-73) % Lymph % (Auto) (20-40) % [place] % (Auto) (2-11) % Eos % (Auto) (0-4) % Baso % (Auto) (0-2) % Lymph # (Auto) (1.2-4.9) X10*3/uL [place] # (Auto) (0.1-1.2) X10*3/uL Eos # (Auto) (0.0-0.4) X10*3/uL Baso # (Auto) (0.0-0.2) X10*3/uL Abs Immat Gran (auto) (0.00-0.03) X10*3/uL Absolute Neuts (auto) (2.0-8.3) X10*3/uL Absolute Nucleated RBC (0.0-0.012) X10*3/uL Nucleated RBC % (auto) (0.0-0.2) /100WBC PT 12.9 (10.8-13.0) SEC INR 1.1 (0.9-1.1) APTT 36.2 (24.1-38.0) SEC Sodium (135-145) mmol/L Potassium (3.3-5.1) mmol/l Chloride (96-108) mmol/L Carbon Dioxide (22-29) mmol/L Anion Gap (12-20) BUN (9-16) mg/dL Creatinine (0.5-1.4) mg/dL Estim Creat Clear Calc Estimated GFR Random Glucose (60-115) mg/dL Calcium (8.4-10.2) mg/dL Magnesium (1.6-2.6) mg/dL Total Bilirubin (0.0-1.0) mg/dL Direct Bilirubin (0.0-0.5) mg/dL AST (5-31) U/L ALT (0-31) U/L Alkaline Phosphatase (39-117) U/L Total Protein (6.5-8.0) g/dL Albumin (3.5-5.0) g/dL Beta HCG, Quant mIU/mL Coronavirus (PCR) (Negative) Influenza Type A (PCR) (Negative) Influenza Type B (PCR) (Negative) RSV RNA Qual (PCR) (Negative) Imaging Data CT scan - head: Attestation: I personally reviewed and interpreted this imaging study as follows: Radiologist's impression: FINDINGS: There is no evidence of acute intracranial hemorrhage or territorial infarction. No abnormal mass effect or midline shift is seen. Bey to white matter differentiation is well preserved. No extra-axial fluid collections are identified. The ventricles are normal in size. There is no abnormal attenuation within the brain parenchyma. The osseous structures and soft tissues are normal. There is mild soft tissue opacification of the right side of the sphenoid sinus. There is under aeration or hypoplasia of the right frontal sinus. The mastoid air cells, middle ears and visualized portions of the paranasal sinuses are otherwise well aerated and clear.. CT/CT head/brain wo con IMPRESSION: Mild inflammatory change in the sphenoid sinus otherwise unremarkable exam. Discharge Plan Discharge Clinical Impression: Sinusitis Patient Disposition: Home, Self-Care Instructions: Sinusitis (ED) Additional Instructions: Your CT scan revealed inflammatory changes to her sinuses otherwise no other acute processes. We have put you on antibiotics and steroids for her sinus infection. Return if any new or worsening symptoms or symptoms persist despite being on the antibiotics for at least 48-72 hours. Return if you develops a fever or any neck pain/stiffness. You can follow-up with her primary care provider. And continue your previously prescribed medications as previously prescribed. Prescriptions: New amoxicillin-pot clavulanate [Augmentin] 875-125 mg tablet 1 tab PO BID 10 Days Qty: 20 RF: 0 prednisone 20 mg tablet 40 mg PO DAILY 5 Days Qty: 10 RF: 0 zfiohmewlk-avseambigvcyo-tdoh [Fioricet] 50-300-40 mg capsule 1 cap PO Q8H PRN (Reason: pain) Qty: 10 RF: 0 No Action trazodone 50 mg Tablet 50 mg PO BEDTIME PRN (Reason: Insomnia) 30 Days Qty: 30 RF: 0 clonazepam 0.5 mg tablet 0.5 mg PO DAILY@1200 PRN (Reason: Anxiety) 1 Days Qty: 2 RF: 0 sertraline 100 mg tablet 150 mg PO DAILY 30 Days Qty: 45 RF: 0 clonazepam 1 mg tablet 1 mg PO BID PRN (Reason: Anxiety) 1 Days Qty: 2 RF: 0 pantoprazole 40 mg tablet,delayed release (DR/EC) 40 mg PO DAILY 1 Days Qty: 1 RF: 0 gabapentin 300 mg capsule 300 mg PO DAILY 1 Days Qty: 1 RF: 0 diclofenac sodium 75 mg tablet,delayed release (DR/EC) 75 mg PO BID 1 Days Qty: 2 RF: 0 gabapentin 100 mg capsule 200 mg PO BEDTIME 1 Days Qty: 1 RF: 0 Excedrin Migraine 250-250-65 mg Tablet 1 tab PO DAILY PRN (Reason: Headache) 5 Days Qty: 5 RF: 0 dextroamphetamine-amphetamine 25 mg capsule,extended release 24hr 25 mg PO QAM 1 Days Qty: 1 RF: 0 Vraylar 6 mg capsule 6 mg PO DAILY 30 Days Qty: 30 RF: 0 clonidine HCl 0.1 mg tablet 0.1 mg PO TID 1 Days Qty: 3 RF: 0 Referrals: Rhoda Pina MD [Primary Care Provider] - 2 days Print Language: Slovak
[2020-12-02 10:05] VITALS: BP 115/83; PULSE 83; RESP 16; TEMP 36.5; BMI 31.8
[2020-12-02] MEDS: Butalb/Acetamin/Caff 50/325/40 TABLET 2 TAB PO (10:38)
[2020-12-02] MEDS: 0.9 % Sodium Chloride 1,000 ML 999 ML IVCONT (10:39)
[2020-12-02 10:56] LABS: MANUAL DIFF FLAG NO
[2020-12-02 11:01] LABS: Basophils Absolute Auto 0.1 X10*3/uL (0.0-0.2); Basophils Percent Auto 0.9 % (0-2); Eosinophils Absolute Auto 0.3 X10*3/uL (0.0-0.4); Eosinophils Percent Auto 1.8 % (0-4); Hematocrit 41.6 % (37-47); Imm Gran Abs Auto 0.05 X10*3/uL (0.00-0.03); Imm Gran Pct Auto 0.3 % (0.0-0.4); Lymphocytes Absolute Auto 4.6 X10*3/uL (1.2-4.9); Lymphocytes Percent Auto 30.8 % (20-40); Mean Corpuscular HGB Conc 33.7 g/dl (31.0-35.0); Mean Corpuscular Hemoglobin 30.4 pg (27.0-33.0); Mean Corpuscular Volume 90.2 fL (80-98); Mean Platelet Volume 9.9 fL (9.4-12.3); Monocytes Absolute Auto 1.1 X10*3/uL (0.1-1.2); Monocytes Percent Auto 7.5 % (2-11); Neutrophils Absolute Auto 8.7 X10*3/uL (2.0-8.3); Neutrophils Percent Auto 58.7 % (45-73); Platelet Count 561 X10*3/uL (160-400); Red Blood Count 4.61 X10*6/uL (4.20-5.50); Red Cell Distribution Width 14.5 % (11.0-16.0); White Blood Count 14.8 X10*3/uL (4.8-10.8)
[2020-12-02 11:03] LABS: INTERNATIONAL NORM RATIO 1.1 (0.9-1.1); Prothrombin Time 12.9 SEC (10.8-13.0)
[2020-12-02 11:05] LABS: Partial Thromboplastin Time 36.2 SEC (24.1-38.0)
[2020-12-02 11:24] LABS: Alanine Aminotransferase 14 U/L (0-31); Albumin Level 4.1 g/dL (3.5-5.0); Alkaline Phosphatase 90 U/L (39-117); Anion Gap 11 (12-20); Aspartate Amino Transferase 14 U/L (5-31); Bilirubin Direct < 0.2 mg/dL (0.0-0.5); Bilirubin Total 0.4 mg/dL (0.0-1.0); Blood Urea Nitrogen 7 mg/dL (9-16); Calcium 9.4 mg/dL (8.4-10.2); Carbon Dioxide 25 mmol/L (22-29); Chloride 106 mmol/L (96-108); Estimated Glomerular Filt Rate > 60; Glucose Random 91 mg/dL (60-115); Magnesium 2.2 mg/dL (1.6-2.6); Potassium 4.4 mmol/l (3.3-5.1); Sodium 138 mmol/L (135-145); Total Protein 6.7 g/dL (6.5-8.0)
[2020-12-02 11:34] LABS: Influenza A PCR NEGATIVE (Negative); Influenza B PCR NEGATIVE (Negative); Resp Syncy Virus RNA Qual PCR NEGATIVE (Negative); SARS COV2 PCR INHOUSE NEGATIVE (Negative)
[2020-12-02 11:44] LABS: HCG Quantitative < 2 mIU/mL
[2020-12-02] MEDS: Amoxicillin/Potassium Clav 875 MG TABLET PO (12:30)
[2020-12-02] MEDS: predniSONE 20 MG TABLET 40 MG PO (12:30)
== END 2020-12-02 12:34 | disposition home or self-care (01) ==
PROVIDERS: Physician Assistant Medical; Emergency Provider Emergency Medicine; PCP Student in an Organized Health Care Education/Training Program
DX: J32.3 Chronic sphenoidal sinusitis (principal); Z20.822 Contact with and (suspected) exposure to COVID-19; J44.9 Chronic obstructive pulmonary disease, unspecified; Z85.41 Personal history of malignant neoplasm of cervix uteri; F17.210 Nicotine dependence, cigarettes, uncomplicated
CPT/HCPCS: 0241U; 36415; 70450; 80048; 80076; 83735; 84702; 85025; 85610; 85730; 96360; 99283; 99284

== ENCOUNTER 2020-12-10 08:23 | Emergency (ER) | payer MEDICARE, MEDICAID, SELFPAY ==
[2020-12-10 09:36] VITALS: BP 119/80; PULSE 75; RESP 16; TEMP 35.8; O2SAT 95; BMI 31.8
--- NOTE | 2020-12-10 10:13 | ED_ITS ---
HPI - URI/Sore Throat General Chief Complaint: Upper Respiratory Symptoms Stated Complaint: SOB Time Seen by Provider: 12/10/20 10:13 Source: patient Mode of arrival: ambulatory Limitations: no limitations History of Present Illness HPI Narrative: fever, cough, shortness of breath, headache. patient was seen last week for sinusitis, non compliant with inhailers and is still smoking MD elicited complaint: fever, cough and nasal congestion Pertinent past history: sinusitis and COPD Onset (ago): week(s) Consistency: constant Severity: mild Associated symptoms: fever, cough and shortness of breath Related Data Previous Rx's Medication Instructions Recorded Excedrin Migraine 1 tab PO DAILY PRN 5 Days #5 tab 10/21/20 Vraylar 6 mg PO DAILY 30 Days #30 cap 10/21/20 clonazepam 0.5 mg PO DAILY@1200 PRN 1 Days #2 10/21/20 tab clonazepam 1 mg PO BID PRN 1 Days #2 tab 10/21/20 clonidine HCl 0.1 mg PO TID 1 Days #3 tab 10/21/20 dextroamphetamine-amphetamine 25 mg PO QAM 1 Days #1 cap 10/21/20 diclofenac sodium 75 mg PO BID 1 Days #2 tab 10/21/20 gabapentin 200 mg PO BEDTIME 1 Days #1 cap 10/21/20 gabapentin 300 mg PO DAILY 1 Days #1 cap 10/21/20 pantoprazole 40 mg PO DAILY 1 Days #1 tab 10/21/20 sertraline 150 mg PO DAILY 30 Days #45 tab 10/21/20 trazodone 50 mg PO BEDTIME PRN 30 Days #30 10/21/20 tab amoxicillin-pot clavulanate 1 tab PO BID 10 Days #20 tab 12/02/20 [Augmentin] kzfeaaibxk-pluoyvzxgmszh-adqh 1 cap PO Q8H PRN #10 cap 12/02/20 [Fioricet] prednisone 40 mg PO DAILY 5 Days #10 tab 12/02/20 azithromycin 250 mg PO DAILY 4 Days #4 tab 12/10/20 Allergies Allergy/AdvReac Type Severity Reaction Status Date / Time SEASONAL ALLERGIES Allergy Intermediate RUNNY NOSE Uncoded 12/10/20 09:58 WATERY EYES Review of Systems Constitutional: Constitutional: Reports no additional constitutional complaints Eyes: Eyes: Reports no additional eye complaints ENT: Denies dizziness Cardiovascular: Cardiovascular: Reports no additional cardiovascular complaints Respiratory: Respiratory: Reports as per HPI Gastrointestinal: Gastrointestinal: Reports no additional gastrointestinal complaints Genitourinary: Genitourinary: Reports no additional female genitourinary complaints Musculoskeletal: Musculoskeletal: Reports no additional musculoskeletal complaints Integumentary/Breasts: Skin/Breast: Denies rash Neurologic: Reports system reviewed and no additional complaints, except as documented, Denies dizziness and Denies Sensory deficit (Neuro) Psychiatric: Psychiatric: Denies anxiety [facility] Past Medical History Medical History Anemia Anxiety B12 deficiency Bipolar disorder, unspecified Borderline personality disorder Cervical cancer COPD (chronic obstructive pulmonary disease) Depression Depression Migraines Posttraumatic stress disorder Surgical History History of total splenectomy Social History Social History Alcohol intake: never Smoking Status: Current every day smoker Tobacco Type: Cigarette Packs Per Day: 2 Cigarettes Per Day: 40.0 Use of substances other than those prescribed or required for medical reasons: Yes Substance Use Type: Marijuana Substance Use Frequency: Occasionally Advance Directives: No Advance Directives Information Provided: No service: No 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 Sexual orientation: Straight/Heterosexual Physical Exam Vital Signs: Vital Signs: Last Vital Signs Temp 96.4 F L 12/10/20 09:36 Pulse 72 12/10/20 10:38 Resp 16 12/10/20 09:36 BP 119/80 12/10/20 09:36 Pulse Ox 95 12/10/20 09:36 Body Mass Index 31.8 Const: General: healthy appearing Nutritional Appearance: average body habitus Orientation/consciousness: oriented to person and patient oriented x3 Limitations: no limitations HENMT: Head: Yes normal to inspection Ears: external ears normal General nose exam: Normal external nose present Mouth: Normal oral and palatal mucosa present and oropharynx normal Throat: Yes posterior oropharynx normal Eyes: General: appearance normal, both eyes and all related structures Neck: Other: supple Neck: Yes normal visual inspection Chest: Chest palpation & inspection: normal inspection of the chest Resp: Other: diffuse wheezing and rhonchi Cardio: Jugular venous distension: no JVD Rate: regular rate Rhythm: regular rhythm Heart sounds: S1 normal heart sound present and S2 normal heart sound present GI: Inspection: Yes normal to inspection Palpation (GI): Soft to palpation, nontender and No hepatosplenomegaly present Auscultation: normal bowel sounds : General: Yes no CVA tenderness Back/Spine/Pelvis: Back: no CVA tenderness Skin: General skin exam: no rashes or lesions noted Neuro: General: oriented to person and patient oriented x3 Cranial nerves: Yes CN's II-XII intact bilaterally Motor exam (neuro): 5/5 motor strength present throughout Sensory Exam: No Sensory deficit (Neuro) Extrem: General: Yes normal to inspection Psych: Appearance: grossly normal Course Course Course Narrative: breathing better MDM - URI/Sore Throat MDM Narrative Medical decision making narrative: Patient has a splenectomy, question of small patchy infiltrate will treat with azithromycin Differential Diagnosis Differential diagnosis: Likely upper respiratory infection, viral infection, bronchitis and influenza Lab Data Labs: Lab Results 12/10/20 Range/Units 10:29 Coronavirus (PCR) NEGATIVE (Negative) Influenza Type A (PCR) NEGATIVE (Negative) Influenza Type B (PCR) NEGATIVE (Negative) RSV RNA Qual (PCR) NEGATIVE (Negative) Imaging Data Chest x-ray: Radiologist's impression: small patchy right lower lobe infiltrate Discharge Plan Discharge Clinical Impression: Bronchitis Upper respiratory infection Qualifiers: URI type: unspecified URI Qualified Code(s): J06.9 - Acute upper respiratory infection, unspecified Pneumonia Qualifiers: Pneumonia type: due to unspecified organism Laterality: right Lung location: lower lobe of lung Qualified Code(s): J18.9 - Pneumonia, unspecified organism Patient Disposition: Home, Self-Care Instructions: Pneumonia (ED) Prescriptions: New azithromycin 250 mg tablet 250 mg PO DAILY 4 Days Qty: 4 RF: 0 No Action trazodone 50 mg Tablet 50 mg PO BEDTIME PRN (Reason: Insomnia) 30 Days Qty: 30 RF: 0 clonazepam 0.5 mg tablet 0.5 mg PO DAILY@1200 PRN (Reason: Anxiety) 1 Days Qty: 2 RF: 0 sertraline 100 mg tablet 150 mg PO DAILY 30 Days Qty: 45 RF: 0 clonazepam 1 mg tablet 1 mg PO BID PRN (Reason: Anxiety) 1 Days Qty: 2 RF: 0 pantoprazole 40 mg tablet,delayed release (DR/EC) 40 mg PO DAILY 1 Days Qty: 1 RF: 0 gabapentin 300 mg capsule 300 mg PO DAILY 1 Days Qty: 1 RF: 0 diclofenac sodium 75 mg tablet,delayed release (DR/EC) 75 mg PO BID 1 Days Qty: 2 RF: 0 gabapentin 100 mg capsule 200 mg PO BEDTIME 1 Days Qty: 1 RF: 0 Excedrin Migraine 250-250-65 mg Tablet 1 tab PO DAILY PRN (Reason: Headache) 5 Days Qty: 5 RF: 0 dextroamphetamine-amphetamine 25 mg capsule,extended release 24hr 25 mg PO QAM 1 Days Qty: 1 RF: 0 Vraylar 6 mg capsule 6 mg PO DAILY 30 Days Qty: 30 RF: 0 clonidine HCl 0.1 mg tablet 0.1 mg PO TID 1 Days Qty: 3 RF: 0 prednisone 20 mg tablet 40 mg PO DAILY 5 Days Qty: 10 RF: 0 amoxicillin-pot clavulanate [Augmentin] 875-125 mg tablet 1 tab PO BID 10 Days Qty: 20 RF: 0 qfniyypftm-vzjonyewkwbrg-lzrt [Fioricet] 50-300-40 mg capsule 1 cap PO Q8H PRN (Reason: pain) Qty: 10 RF: 0 Referrals: Rhoda Pina MD [Primary Care Provider] - 2 days
--- NOTE | 2020-12-10 10:18 | XR_ITS ---
EXAMINATION: XR CHEST CLINICAL INFORMATION: Shortness of breath COMPARISON: Chest 10/16/2020 TECHNIQUE: Frontal view of the chest was obtained. FINDINGS: The lungs are well-expanded with moderate opacity right lower lobe medial segment. The heart size and pulmonary vascularity is normal. There are old healed the left lateral fifth and seventh rib fractures. No acute fracture seen. XR/XR chest 1V IMPRESSION: New patchy opacity right lower lobe medial segment, likely infiltrate.
[2020-12-10] MEDS: predniSONE 20 MG TABLET 60 MG PO (10:31)
[2020-12-10] MEDS: Albuterol Sulfate 90 MCG 8 GM INHALER 4 PUFF INHALE (10:37)
[2020-12-10 10:38] VITALS: PULSE 72; O2SAT 95
[2020-12-10] MEDS: Azithromycin 500 MG TABLET PO (11:20)
[2020-12-10 11:21] LABS: Influenza A PCR NEGATIVE (Negative); Influenza B PCR NEGATIVE (Negative); Resp Syncy Virus RNA Qual PCR NEGATIVE (Negative); SARS COV2 PCR INHOUSE NEGATIVE (Negative)
== END 2020-12-10 11:56 | disposition home or self-care (01) ==
PROVIDERS: Emergency Provider Emergency Medicine; PCP Student in an Organized Health Care Education/Training Program
DX: J20.8 Acute bronchitis due to other specified organisms (principal); J18.9 Pneumonia, unspecified organism; J06.9 Acute upper respiratory infection, unspecified; Z20.822 Contact with and (suspected) exposure to COVID-19; J44.9 Chronic obstructive pulmonary disease, unspecified; F17.210 Nicotine dependence, cigarettes, uncomplicated; Z85.41 Personal history of malignant neoplasm of cervix uteri
CPT/HCPCS: 0241U; 36415; 71045; 94640; 99283; 99284

== ENCOUNTER → 2020-12-15 10:57 | Outpatient (BNVA) | payer MEDICARE, MEDICAID, SELFPAY | PROVIDERS: PCP Student in an Organized Health Care Education/Training Program; Visit Provider Internal Medicine | DX: J45.909 Unspecified asthma, uncomplicated (principal); F17.200 Nicotine dependence, unspecified, uncomplicated | CPT/HCPCS: 99212 ==

== ENCOUNTER 2021-01-12 09:55 | Outpatient (REF) | payer MEDICARE, MEDICAID, SELFPAY ==
--- NOTE | 2021-01-12 17:27 | PFT_ITS ---
FLOWS: FEV1 of 99% of predicted at 2.97 L. FVC 105% of predicted at 3.79 L. FEV1 to FVC ratio of 0.78. No bronchodilator response. LUNG VOLUMES: Total lung capacity 117% of predicted at 5.75 L. Residual volume 136% of predicted at 2.01 L. Slow vital capacity 109% of predicted at 3.74 L. Expiratory reserve volume 25% of predicted at 0.31 L. Diffusion capacity is normal. IMPRESSION: No obstructive or restrictive ventilatory defect. No bronchodilator response. Increased residual volume suggests air trapping. Decreased expiratory reserve volume suggests extrathoracic restriction likely secondary to abdominal obesity. Juanjo Voss MD AP/MODL / [id number]
== END 2021-01-12 09:56 | disposition home or self-care (01) ==
LOC: HO.RESP 09:55
PROVIDERS: Visit Provider Internal Medicine
DX: J45.909 Unspecified asthma, uncomplicated (principal); F17.200 Nicotine dependence, unspecified, uncomplicated
CPT/HCPCS: 94060; 94727; 94729; 99212

== ENCOUNTER 2021-01-26 09:20 | Inpatient (IN) | payer MEDICARE, MEDICAID, SELFPAY ==
[2021-01-26] VITALS (8 sets, daily range): BP systolic 97–129; BP diastolic 57–75; PULSE 60–95; RESP 14–18; TEMP 36.5–36.8; O2SAT 90–98; BMI 29.7
--- NOTE | ~2021-01-26 | XR_ITS ---
EXAMINATION: CHEST 1 VIEW CLINICAL INFORMATION: Hypoxia. COMPARISON: November 09, 2020. TECHNIQUE: An AP view of the chest is provided. FINDINGS: The cardiac silhouette is not enlarged. The mediastinal and hilar contours are unremarkable. There are neither pleural effusions nor pneumothoraces. There are no consolidations. The osseous structures are stable. XR/XR chest 1V IMPRESSION: No evidence for acute disease.
--- NOTE | 2021-01-26 09:41 | ECG_ITS ---
Test Reason : overdose Blood Pressure : / mmHG Vent. Rate : 059 BPM Atrial Rate : 059 BPM P-R Int : 130 ms QRS Dur : 080 ms QT Int : 428 ms P-R-T Axes : 047 022 038 degrees QTc Int : 423 ms Sinus bradycardia with sinus arrhythmia Otherwise normal ECG When compared with ECG of 16-OCT-2020 13:25, No significant change was found Referred By: Naila Shirley Electronically Signed By:SARAH GARCIA
--- NOTE | 2021-01-26 09:42 | ED_ITS ---
HPI - Overdose General Chief Complaint: Psychiatric Symptoms Stated Complaint: crisis Time Seen by Provider: 01/26/21 09:39 Source: patient History of Present Illness HPI Narrative: 35 y/o female with history of mood disorder, PTSD, borderline personality, xh polysubstance abuse, asthma, heavy smoker, who has had several inpatient psychiatric admissions, last in Oct 2020 presents to the ED with suicidal ideation and intentional polysubstance overdose. She reports at 730 am this morning she took several handfuls of pills to end her life including: Gabapentin, Trazodone, Klonopin & Benadryl. She reports taking at least 40 tablets of Gabapentin 100 mg, 15 tablets of Klonoipin 1 mg, unknown amount of Trazodone 50 mg and at least 10 tablets of Benadryl 25 mg. She states all the pills were old prescriptions she had left over aside from the Klonopin which was given to her by someone. She states this morning when he [facility] worker came to see her and give her her scheduled medications she noticed she was off and recommended she come to the ER for evaluation. She reports ongoing relationship stress with her ex-girlfriend who is now seeing someone new. Yesterday her ex had a 3 way call with her and the new girlfriend and told Aileen that she can't talk to her anymore. On arrival she is drowsy but ambulating with a steady gait. Poison Control was contacted. complaint: intentional overdose Onset (ago): hour(s) (2.5) Time: 07:30 Intent: suicide attempt How Overdose Was Discovered: called counselor ([facility] worker) Context: Intentional Overdose: relationship problems Associated symptoms: depression Treatments Prior to Arrival: none Related Data Home Medications Medication Instructions Recorded Confirmed albuterol sulfate 2.5 mg INHALATION Q4-6H PRN 12/15/20 01/26/21 fluticasone propionate 50 2 spray INTRANASAL DAILY 12/15/20 01/26/21 mcg/actuation nasal spray,suspension Previous Rx's Medication Instructions Recorded Excedrin Migraine 1 tab PO DAILY PRN 5 Days #5 tab 10/21/20 Vraylar 6 mg PO DAILY 30 Days #30 cap 10/21/20 clonazepam 0.5 mg PO DAILY@1200 PRN 1 Days #2 10/21/20 tab clonazepam 1 mg PO BID PRN 1 Days #2 tab 10/21/20 clonidine HCl 0.1 mg PO TID 1 Days #3 tab 10/21/20 dextroamphetamine-amphetamine 25 mg PO QAM 1 Days #1 cap 10/21/20 gabapentin 200 mg PO BEDTIME 1 Days #1 cap 10/21/20 gabapentin 300 mg PO DAILY 1 Days #1 cap 10/21/20 pantoprazole 40 mg PO DAILY 1 Days #1 tab 10/21/20 sertraline 150 mg PO DAILY 30 Days #45 tab 10/21/20 trazodone 50 mg PO BEDTIME PRN 30 Days #30 10/21/20 tab albuterol sulfate 90 mcg/actuation 2 puff INHALATION Q4-6H PRN 60 01/12/21 aerosol inhaler Days #8.5 g Allergies Allergy/AdvReac Type Severity Reaction Status Date / Time SEASONAL ALLERGIES Allergy Intermediate RUNNY NOSE Uncoded 12/10/20 09:58 WATERY EYES Review of Systems Review of Systems: Constitutional: No Fever, No Chills Cardiovascular: No Chest Pain, No SOB Respiratory: No Cough, No Sputum Gastrointestinal: + Nausea, No Vomiting, No Diarrhea, No abdominal Pain Musculoskeletal: No joint pain, No Myalgias Skin: No Skin Lesions, No rash Neuro: No Weakness, No Numbness, No Dizziness, No Headache Psych: No Anxiety/Panic, + Depression Heme/Lymph: No Bruising, No Lymphadenopathy Endocrine: No Polyuria, No Polydipsia PMFSH Past Medical History Attestation statement: The following information was validated with the patient. Medical History Anemia Anxiety Asthma B12 deficiency Bipolar disorder, unspecified Borderline personality disorder Bronchitis Cervical cancer COPD (chronic obstructive pulmonary disease) Depression Depression Migraines Posttraumatic stress disorder Smoker Surgical History History of total splenectomy Social History Social History Alcohol intake: unknown Smoking Status: Current some day smoker Tobacco Type: Cigarette Packs Per Day: 2 Cigarettes Per Day: 40.0 Use of substances other than those prescribed or required for medical reasons: Unknown Substance Use Type: Marijuana Advance Directives: No Advance Directives Information Provided: No service: No 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 Oriented X3. No acute distress. Eyes: Pupils equal, round, sluggish to light but reactive bilaterally. No nystagmus ENT: Pharynx normal. Neck: Normal inspection. Neck supple. CVS: Normal heart rate and rhythm. Pulses normal. Respiratory: No respiratory distress. Breath sounds normal. Abdomen: Soft and nontender. +BS x4 Skin: Skin warm and dry. Normal skin color. Normal skin turgor. No rashes. Extremities: No lower extremity edema. Neuro: Oriented X 3. Drowsy, speech slightly slurred, otherwise non-focal. Equal and symmetrical strength throughout Course Course Course Narrative: 35 y/o female with history of PTSD, mood disorder, borderline personality with several psych admissions presents with polysubstance overdose. Poison Control was contacted on arrival - recommending close monitoring of airway, monitoring for seizures, signs and symptoms of anticholenergic toxodrome, prlonged QTc and widening of QRS. IVF ordered and activated charcoal ordered - patient is awake enough to drink it now. Labs and EKG ordered. Will need close monitoring of airway and hemodynamics. Reevaluation(s) Reevaluation #1: Patient has been reassessed several times throughout the day. 1:1 observation maintained for safety. She developed soft BP's while sleeping that improved with IVF and waking up. She was able to get out of bed and walk to the bathroom with minimal assistance. She is drinking orange juice. Reevaluation #2: Labs are unremarkable. Utox +benzo, amphetamine, and marijuana. Spoke with Poison control again who is recommending 1 more EKG which remains normal. Now that mental status is improved and remains hemodynamically stable she is medically cleared to be evaluated for crisis and inpatient admission. Dis cussed with patient who is now denying SI and saying she took all of the medications to numb the pain and fall asleep. Expressed concerns for her safety and she agrees to see crisis. Reevaluation #3: SpO2 91% while sleeping, remained 91% when awake. No SOB, cough or respiratory distress. She's refusing oxygen stating her oxygen is always a little low because I have COPD. Will get CXR to further evaluation, her most recent in December showed RML infiltrate. Additional Reevaluation(s): CXR is negative. SpO2 90%, asymptomatic. Physician observation started at 4:26pm. Patient placed in physician observation because patient is awaiting [facility] evaluation for the possible need of inpatient psych admission. At the time observation was started patient's vital signs were stable. Spo2 90%. Patient is easily arousable and oriented. Neuro exam is non- focal. CV: RRR and lungs are clear. Will continue to monitor. Consultations Consultation #1: Poison Control - Consultation #2: [facility] MDM - Overdose Medical Records Attestation: I reviewed the patient's medical records. Lab Data Attestation: I reviewed the patient's lab results. Result diagrams: 01/26/21 10:36 01/26/21 14:06 Labs: Lab Results 01/26/21 01/26/21 01/26/21 Range/Units 10:36 10:36 10:36 WBC 11.8 H (4.8-10.8) X10*3/uL RBC 5.10 (4.20-5.50) X10*6/uL Hgb 15.1 (12.0-16.0) g/dl Hct 46.1 (37-47) % MCV 90.4 (80-98) fL MCH 29.6 (27.0-33.0) pg MCHC 32.8 (31.0-35.0) g/dl RDW 14.9 (11.0-16.0) % Plt Count 522 H (160-400) X10*3/uL MPV 10.4 (9.4-12.3) fL Immature Gran % (Auto) Cancelled Neut % (Auto) Cancelled Lymph % (Auto) Cancelled [place] % (Auto) Cancelled Eos % (Auto) Cancelled Baso % (Auto) Cancelled Lymph # (Auto) Cancelled [place] # (Auto) Cancelled Eos # (Auto) Cancelled Baso # (Auto) Cancelled Abs Immat Gran (auto) Cancelled Absolute Neuts (auto) Cancelled Absolute Nucleated RBC 0.000 (0.0-0.012) X10*3/uL Nucleated RBC % (auto) 0.0 (0.0-0.2) /100WBC Neutrophils % (Manual) 63 (45-73) % Band Neutrophils % 1 L (3-5) % Lymphocytes % (Manual) 30 (20-40) % Monocytes % (Manual) 2 (2-11) % Eosinophils % (Manual) 3 (0-4) % Basophils % (Manual) 1 (0-1) % Abs Neuts (Manual) 7.6 (2.2-7.9) X10*3/uL Lymphocytes # (Manual) 3.5 (0.6-4.8) X10*3/uL Monocytes # (Manual) 0.2 (0.0-1.2) X10*3/uL Eosinophils # (Manual) 0.4 (0.0-0.8) X10*3/UL Basophils # (Manual) 0.1 (0.0-0.3) X10*3/uL Platelet Estimate INCREASED (NORMAL) Plt Morphology Comment NORMAL RBC Morphology NOTED Acanthocytes (Spur) 2+ (3-5) /OIF Schistocytes 2+ (3-5) /OIF Hold Blue Top SEE NOTE Sodium (135-145) mmol/L Potassium (3.3-5.1) mmol/L Chloride (96-108) mmol/L Carbon Dioxide (22-29) mmol/L Anion Gap (12-20) BUN (9-16) mg/dL Creatinine (0.5-1.4) mg/dL Estim Creat Clear Calc Estimated GFR Random Glucose (60-115) mg/dL Calcium (8.4-10.2) mg/dL Magnesium (1.6-2.6) mg/dL Total Bilirubin (0.0-1.0) mg/dL Direct Bilirubin (0.0-0.5) mg/dL AST (5-31) U/L ALT (0-31) U/L Alkaline Phosphatase (39-117) U/L Total Protein (6.5-8.0) g/dL Albumin (3.5-5.0) g/dL Urine Color Urine Appearance Urine pH (5.0-8.0) Ur Specific [place] (1.005-1.025) Urine Protein (NEG-TRACE) MG/DL Urine Glucose (UA) (NEG) MG/DL Urine Ketones (NEG) MG/DL Urine Blood (NEG) Urine Nitrite (NEG) Ur Leukocyte Esterase (NEG) Urine RBC (0) /HPF Urine WBC (0-4) /HPF Ur Squamous Epith Cells /LPF Urine Bacteria /LPF Urine Test (NEGATIVE) Salicylates (15-30) mg/dL Urine Opiates Screen (Not Detect) Acetaminophen (<30) mcg/mL Ur Barbiturates Screen (Not Detect) Ur Phencyclidine Scrn (Not Detect) Ur Amphetamines Screen (Not Detect) U Benzodiazepines Scrn (Not Detect) Urine Cocaine Screen (Not Detect) U Marijuana (THC) Screen (Not Detect) Ethyl Alcohol mg/dL COVID-19 (KENYA) Negative (Negative) COVID-19 Clin Com See Note 01/26/21 01/26/21 01/26/21 Range/Units 10:36 10:37 10:37 WBC (4.8-10.8) X10*3/uL RBC (4.20-5.50) X10*6/uL Hgb (12.0-16.0) g/dl Hct (37-47) % MCV (80-98) fL MCH (27.0-33.0) pg MCHC (31.0-35.0) g/dl RDW (11.0-16.0) % Plt Count (160-400) X10*3/uL MPV (9.4-12.3) fL Immature Gran % (Auto) Neut % (Auto) Lymph % (Auto) [place] % (Auto) Eos % (Auto) Baso % (Auto) Lymph # (Auto) [place] # (Auto) Eos # (Auto) Baso # (Auto) Abs Immat Gran (auto) Absolute Neuts (auto) Absolute Nucleated RBC (0.0-0.012) X10*3/uL Nucleated RBC % (auto) (0.0-0.2) /100WBC Neutrophils % (Manual) (45-73) % Band Neutrophils % (3-5) % Lymphocytes % (Manual) (20-40) % Monocytes % (Manual) (2-11) % Eosinophils % (Manual) (0-4) % Basophils % (Manual) (0-1) % Abs Neuts (Manual) (2.2-7.9) X10*3/uL Lymphocytes # (Manual) (0.6-4.8) X10*3/uL Monocytes # (Manual) (0.0-1.2) X10*3/uL Eosinophils # (Manual) (0.0-0.8) X10*3/UL Basophils # (Manual) (0.0-0.3) X10*3/uL Platelet Estimate (NORMAL) Plt Morphology Comment RBC Morphology Acanthocytes (Spur) /OIF Schistocytes /OIF Hold Blue Top Sodium (135-145) mmol/L Potassium (3.3-5.1) mmol/L Chloride (96-108) mmol/L Carbon Dioxide (22-29) mmol/L Anion Gap (12-20) BUN (9-16) mg/dL Creatinine (0.5-1.4) mg/dL Estim Creat Clear Calc Estimated GFR Random Glucose (60-115) mg/dL Calcium (8.4-10.2) mg/dL Magnesium (1.6-2.6) mg/dL Total Bilirubin (0.0-1.0) mg/dL Direct Bilirubin (0.0-0.5) mg/dL AST (5-31) U/L ALT (0-31) U/L Alkaline Phosphatase (39-117) U/L Total Protein (6.5-8.0) g/dL Albumin (3.5-5.0) g/dL Urine Color YELLOW Urine Appearance CLEAR Urine pH 6.0 (5.0-8.0) Ur Specific [place] 1.020 (1.005-1.025) Urine Protein NEG (NEG-TRACE) MG/DL Urine Glucose (UA) NEG (NEG) MG/DL Urine Ketones NEG (NEG) MG/DL Urine Blood NEG (NEG) Urine Nitrite NEG (NEG) Ur Leukocyte Esterase TRACE H (NEG) Urine RBC 0 (0) /HPF Urine WBC 1-4 (0-4) /HPF Ur Squamous Epith Cells 4+ /LPF Urine Bacteria TRACE /LPF Urine Test NEGATIVE (NEGATIVE) Salicylates (15-30) mg/dL Urine Opiates Screen Not Detected (Not Detect) Acetaminophen (<30) mcg/mL Ur Barbiturates Screen Not Detected (Not Detect) Ur Phencyclidine Scrn Not Detected (Not Detect) Ur Amphetamines Screen POSITIVE H (Not Detect) U Benzodiazepines Scrn POSITIVE H (Not Detect) Urine Cocaine Screen Not Detected (Not Detect) U Marijuana (THC) Screen POSITIVE H (Not Detect) Ethyl Alcohol mg/dL COVID-19 (KENYA) (Negative) COVID-19 Clin Com 01/26/21 01/26/21 Range/Units 14:06 14:06 WBC (4.8-10.8) X10*3/uL RBC (4.20-5.50) X10*6/uL Hgb (12.0-16.0) g/dl Hct (37-47) % MCV (80-98) fL MCH (27.0-33.0) pg MCHC (31.0-35.0) g/dl RDW (11.0-16.0) % Plt Count (160-400) X10*3/uL MPV (9.4-12.3) fL Immature Gran % (Auto) Neut % (Auto) Lymph % (Auto) [place] % (Auto) Eos % (Auto) Baso % (Auto) Lymph # (Auto) [place] # (Auto) Eos # (Auto) Baso # (Auto) Abs Immat Gran (auto) Absolute Neuts (auto) Absolute Nucleated RBC (0.0-0.012) X10*3/uL Nucleated RBC % (auto) (0.0-0.2) /100WBC Neutrophils % (Manual) (45-73) % Band Neutrophils % (3-5) % Lymphocytes % (Manual) (20-40) % Monocytes % (Manual) (2-11) % Eosinophils % (Manual) (0-4) % Basophils % (Manual) (0-1) % Abs Neuts (Manual) (2.2-7.9) X10*3/uL Lymphocytes # (Manual) (0.6-4.8) X10*3/uL Monocytes # (Manual) (0.0-1.2) X10*3/uL Eosinophils # (Manual) (0.0-0.8) X10*3/UL Basophils # (Manual) (0.0-0.3) X10*3/uL Platelet Estimate (NORMAL) Plt Morphology Comment RBC Morphology Acanthocytes (Spur) /OIF Schistocytes /OIF Hold Blue Top Sodium 140 (135-145) mmol/L Potassium 4.3 (3.3-5.1) mmol/L Chloride 107 (96-108) mmol/L Carbon Dioxide 24 (22-29) mmol/L Anion Gap 13 (12-20) BUN 13 D (9-16) mg/dL Creatinine 0.83 (0.5-1.4) mg/dL Estim Creat Clear Calc 98.5 Estimated GFR > 60 Random Glucose 95 (60-115) mg/dL Calcium 9.4 (8.4-10.2) mg/dL Magnesium 2.3 (1.6-2.6) mg/dL Total Bilirubin 0.3 (0.0-1.0) mg/dL Direct Bilirubin < 0.2 (0.0-0.5) mg/dL AST 11 (5-31) U/L ALT 7 (0-31) U/L Alkaline Phosphatase 75 (39-117) U/L Total Protein 6.7 (6.5-8.0) g/dL Albumin 4.1 (3.5-5.0) g/dL Urine Color Urine Appearance Urine pH (5.0-8.0) Ur Specific [place] (1.005-1.025) Urine Protein (NEG-TRACE) MG/DL Urine Glucose (UA) (NEG) MG/DL Urine Ketones (NEG) MG/DL Urine Blood (NEG) Urine Nitrite (NEG) Ur Leukocyte Esterase (NEG) Urine RBC (0) /HPF Urine WBC (0-4) /HPF Ur Squamous Epith Cells /LPF Urine Bacteria /LPF Urine Test (NEGATIVE) Salicylates < 5.0 L (15-30) mg/dL Urine Opiates Screen (Not Detect) Acetaminophen < 1 (<30) mcg/mL Ur Barbiturates Screen (Not Detect) Ur Phencyclidine Scrn (Not Detect) Ur Amphetamines Screen (Not Detect) U Benzodiazepines Scrn (Not Detect) Urine Cocaine Screen (Not Detect) U Marijuana (THC) Screen (Not Detect) Ethyl Alcohol < 10 mg/dL COVID-19 (KENYA) (Negative) COVID-19 Clin Com ECG Data Attestation: I personally reviewed and interpreted this ECG as follows: ECG interpretation date: 01/26/21 Interpretation: #1 @ 10:08 am - sinus bradycardia with sinus arrythmia, HR 59 bpm, QRS normal 80 ms, QTc normal 423 ms #2 @ 11:06 - normal sinus rhythm with sinus arrythmia, HR 60 bpm, QRS normal 80 ms, QTc normal 422 ms #3 @ 15:27 - normal sinus rhythm, HR 62 bpm, QRS normal 84 ms, QTc normal 418 ms Critical Care Time Critical Care Time Critical Care Time: Yes Total Critical Care Time: 45 Attestation: I attest to critical care time spent caring for this patient with potentially life threatening polysubstance overdose, requiring close and frequent bedside reassessments of her mental status and cardiopulmonary status. Time spent reviewing records and coordinating care as well. Discharge Plan Discharge Clinical Impression: Polysubstance overdose Qualifiers: Encounter type: initial encounter Injury intent: intentional self-harm Qualified Code(s): T50.902A - Poisoning by unspecified drugs, medicaments and biological substances, intentional self-harm, initial encounter Prescriptions: No Action trazodone 50 mg Tablet 50 mg PO BEDTIME PRN (Reason: Insomnia) 30 Days Qty: 30 RF: 0 clonazepam 0.5 mg tablet 0.5 mg PO DAILY@1200 PRN (Reason: Anxiety) 1 Days Qty: 2 RF: 0 sertraline 100 mg tablet 150 mg PO DAILY 30 Days Qty: 45 RF: 0 clonazepam 1 mg tablet 1 mg PO BID PRN (Reason: Anxiety) 1 Days Qty: 2 RF: 0 pantoprazole 40 mg tablet,delayed release (DR/EC) 40 mg PO DAILY 1 Days Qty: 1 RF: 0 gabapentin 300 mg capsule 300 mg PO DAILY 1 Days Qty: 1 RF: 0 gabapentin 100 mg capsule 200 mg PO BEDTIME 1 Days Qty: 1 RF: 0 Excedrin Migraine 250-250-65 mg Tablet 1 tab PO DAILY PRN (Reason: Headache) 5 Days Qty: 5 RF: 0 dextroamphetamine-amphetamine 25 mg capsule,extended release 24hr 25 mg PO QAM 1 Days Qty: 1 RF: 0 Vraylar 6 mg capsule 6 mg PO DAILY 30 Days Qty: 30 RF: 0 clonidine HCl 0.1 mg tablet 0.1 mg PO TID 1 Days Qty: 3 RF: 0 fluticasone propionate 50 mcg/actuation spray,suspension 2 spray intranasal DAILY RF: 0 albuterol sulfate 2.5 mg /3 mL (0.083 %) solution for nebulization 2.5 mg inhalation Q4-6H PRN (Reason: Shortness Of Breath Or Wheezing) RF: 0 albuterol sulfate [ProAir HFA] 90 mcg/actuation HFA aerosol inhaler 2 puff inhalation Q4-6H PRN (Reason: shortness of breath or wheezing) 60 Days Qty: 8.5 RF: 2
[2021-01-26 10:51] LABS: Hematocrit 46.1 % (37-47); Hemoglobin 15.1 g/dl (12.0-16.0); Mean Corpuscular HGB Conc 32.8 g/dl (31.0-35.0); Mean Corpuscular Hemoglobin 29.6 pg (27.0-33.0); Mean Corpuscular Volume 90.4 fL (80-98); Mean Platelet Volume 10.4 fL (9.4-12.3); Platelet Count 522 X10*3/uL (160-400); Red Cell Distribution Width 14.9 % (11.0-16.0)
[2021-01-26 10:55] LABS: WBC ABN SCTR FOR CBC 1
[2021-01-26 11:00] LABS: Glucose Urine UA NEG (NEG); Leukocyte Esterase Urine TRACE (NEG); Nitrite Urine NEG (NEG); UACC Culture Trigger YES; Urine Blood NEG (NEG); Urine Ketones NEG (NEG); Urine Protein NEG (NEG-TRACE)
[2021-01-26 11:06] LABS: COVID-19 Test Negative (Negative)
[2021-01-26 11:06] LABS: UPreg QC Valid YES; Urine Pregnancy NEGATIVE (NEGATIVE)
--- NOTE | 2021-01-26 11:06 | ECG_ITS ---
Test Reason : repeat ekg Blood Pressure : / mmHG Vent. Rate : 060 BPM Atrial Rate : 060 BPM P-R Int : 138 ms QRS Dur : 080 ms QT Int : 422 ms P-R-T Axes : 052 030 035 degrees QTc Int : 422 ms Normal sinus rhythm with sinus arrhythmia Normal EKG When compared with ECG of 26-JAN-2021 10:08, No significant change was found Referred By: Rosalie Liz Electronically Signed By:SARAH GARCIA
[2021-01-26 11:08] LABS: Appearance Urine CLEAR; Color Urine YELLOW
[2021-01-26 11:21] LABS: Amphetamine Screen Urine POSITIVE (Not Detect); Barbiturates, Urine Not Detected (Not Detect); Benzodiazepines Screen Urine POSITIVE (Not Detect); Cannabinoid Screen Urine POSITIVE (Not Detect); Cocaine Screen Urine Not Detected (Not Detect); Opiate Screen Urine Not Detected (Not Detect); Phencyclidine Screen Urine Not Detected (Not Detect)
[2021-01-26 11:23] LABS: Band Neutrophils Percent 1 % (3-5); Basophils Percent Manual 1 % (0-1); Eosinophils Percent Manual 3 % (0-4); Lymphocytes Percent Manual 30 % (20-40); Monocytes Percent Manual 2 % (2-11); Neutrophils Percent Manual 63 % (45-73)
[2021-01-26 11:25] LABS: Acanthocytes 2+ (3-5) /OIF; RBC Morphology NOTED
[2021-01-26 11:26] LABS: Platelet Estimate INCREASED (NORMAL); Platelet Morphology Comment NORMAL; Schistocytes 2+ (3-5) /OIF
[2021-01-26 11:30] LABS: Bacteria Urine TRACE /LPF; RBC Urine 0 /HPF (0); Squamous Epithelial Cell Urine 4+ /LPF
[2021-01-26] MEDS: Activated charcoaL 50 GM/240 ML ORAL.SUSP PO (11:30)
[2021-01-26] MEDS: 0.9 % Sodium Chloride 1,000 ML 999 ML IVCONT ×2 (11:30→14:53)
[2021-01-26 13:11] LABS: Basophils Abs Manual 0.1 X10*3/uL (0.0-0.3); Eosinophils Absolute Manual 0.4 X10*3/UL (0.0-0.8); Lymphocytes Absolute Manual 3.5 X10*3/uL (0.6-4.8); Monocytes Absolute Manual 0.2 X10*3/uL (0.0-1.2); Neutrophils Absolute Manual 7.6 X10*3/uL (2.2-7.9); White Blood Count 11.8 X10*3/uL (4.8-10.8)
[2021-01-26 14:32] LABS: Acetaminophen LAB < 1 mcg/mL (<30); Alanine Aminotransferase 7 U/L (0-31); Albumin Level 4.1 g/dL (3.5-5.0); Alkaline Phosphatase 75 U/L (39-117); Anion Gap 13 (12-20); Aspartate Amino Transferase 11 U/L (5-31); Bilirubin Direct < 0.2 mg/dL (0.0-0.5); Bilirubin Total 0.3 mg/dL (0.0-1.0); Blood Urea Nitrogen 13 mg/dL (9-16); Calcium 9.4 mg/dL (8.4-10.2); Carbon Dioxide 24 mmol/L (22-29); Chloride 107 mmol/L (96-108); Creatinine Clr Calc Pharmacy 98.5; Estimated Glomerular Filt Rate > 60; Glucose Random 95 mg/dL (60-115); Magnesium 2.3 mg/dL (1.6-2.6); Potassium 4.3 mmol/L (3.3-5.1); Salicylate < 5.0 mg/dL (15-30); Sodium 140 mmol/L (135-145); Total Protein 6.7 g/dL (6.5-8.0)
[2021-01-26 14:37] LABS: Ethanol < 10 mg/dL
--- NOTE | 2021-01-26 15:11 | ECG_ITS ---
Test Reason : OVERDOSE,REPAT Blood Pressure : / mmHG Vent. Rate : 062 BPM Atrial Rate : 062 BPM P-R Int : 142 ms QRS Dur : 084 ms QT Int : 412 ms P-R-T Axes : 058 036 041 degrees QTc Int : 418 ms Normal sinus rhythm Normal EKG When compared with ECG of 26-JAN-2021 11:06, No significant change was found Referred By: Rosalie Liz Electronically Signed By:SARAH GARCIA
--- NOTE | 2021-01-26 17:13 | PC.NURSE ---
kateyn confirmed fax per pamela from [facility]. plan for eval between [id number]
--- NOTE | 2021-01-26 22:07 | MHC.CARE ---
9:00PM CARE team contacted [facility] re: ETA for a clinician to evaluate pt. [facility] unable to provide a clinician this evening, and unable to say whether one would be available during the overnight shift. [facility] was informed that CARE team will be completing the evaluation. Pt has Medicare/Medicaid insurance and will not require insurance notification to be done by [facility]. 9:10PM This film writer attempted to meet with pt. Pt did not wake up to this film writer's apparent feeble effort of aggressively shaking the stretcher. With the assistance of an ERT the pt briefly awakened, long enough for this film writer to introduce self and to identify the purpose of the interaction. Pt promptly drifted back sleep, though for a short time pt was able to slide herself up the bed so she was more upright to engage in somewhat of a conversation. This was brief, as pt slowly drooped back down, the blankets moving up over part of her face, and slowly and softly mumbling about the ex girlfriend. Pt did not respond to verbal or tactile stimuli this time. Evaluation unable to be completed at this time. ED nursing updated re: this film writer's attempt at evaluating the pt. It is unlikely that pt will be rousable enough for assessment tonight, however this film writer will attempt again at 11pm and 1am. If there is no change in pt's capacity for engaging in evaluation, [facility] will be contacted re: the kick back of responsibility for the crisis evaluation.
--- NOTE | 2021-01-26 23:18 | PC.NURSE ---
Report received. PT is sleeping in bed. Respirations even and unlabored. PT is waiting for crisis evaluation.
--- NOTE | 2021-01-26 23:37 | PC.NURSE ---
CARE team at bed side for crisis eval.
[2021-01-27] VITALS (7 sets, daily range): BP systolic 107–127; BP diastolic 65–86; PULSE 64–78; RESP 15–18; TEMP 36.1–36.8; O2SAT 93–97
[2021-01-27] MEDS: Nicotine 21 MG PATCH.TD24 TRANSDERMA (07:06)
[2021-01-27] MEDS: clonazePAM 1 MG TABLET PO ×2 (08:52→20:13)
--- NOTE | 2021-01-27 08:58 | PC.NURSE ---
Pt transferred to pod from main ED. Pt perseverating re: medications, states that the regular medications have not been ordered as she feels they should be. Pt initially became very angry when offered medications as ordered, accepted only the klonopin, then behaved as if she was going to throw the medications away. Pt then went to her room, slammed the door, threw the pillow on the ground, yelling. A Renschler called, notified of pt behavior, clonodine ordered, pt accepted medications. Pt stated she would call [facility] worker to bring non formulary stimulants. Pt states she has been told she was accepted to %- pt made aware that there are currently no beds, and that there is no guarantee that she will be accepted today.
[2021-01-27] MEDS: cloNIDine HCL 0.1 MG TABLET PO ×3 (09:24→20:12)
--- NOTE | 2021-01-27 09:55 | PC.NURSE ---
Pt yelling that she does not have a television, 'this is like a intermediate, this is not fair, why does everyone have a tv and I don't?' Pt had been notified that no room with a tv was available on arrival, and reminded again that a discharge is required before a room with a tv is available.
[2021-01-27] MEDS: Omeprazole 20 MG CAPSULE.DR PO (10:08)
[2021-01-27] MEDS: Gabapentin 300 MG CAPSULE PO (10:08)
[2021-01-27] MEDS: Sertraline HCL 50 MG TABLET 150 MG PO (10:09)
--- NOTE | 2021-01-27 10:16 | PC.NURSE ---
Pt currently out in common area, watching television, conversing w/ staff.
--- NOTE | 2021-01-27 10:57 | PC.NURSE ---
[facility] staff brought in Adderall as requested by pt. Pt aware, medication brought to pharmacy for verification. Pt aware.
--- NOTE | 2021-01-27 11:26 | PC.NURSE ---
Pt in room, currently in behavioral control. CARE team working on placement.
[2021-01-27] MEDS: clonazePAM 0.5 MG TABLET PO (12:22)
--- NOTE | 2021-01-27 13:58 | PC.NURSE ---
Report given to HEIKE Henley on [facility]. Pt visible on unit, affect even, cooperative w/ care.
--- NOTE | 2021-01-27 14:31 | PC.NURSE ---
Care team in to transfer pt to [facility]- pt cooperative w/ care- had requested to go to [facility], is in agreement w/ transfer.
--- NOTE | 2021-01-27 15:14 | MHC.CARE ---
Patient sign CV and was brought up to without issue. She asked about her belongings, needs #'s from her phone and was concerned about large amount of gallardo. Per security, if a patient has overdosed on opiates, items stay in decon. She denied using drugs and is not known as someone with a history of such, tox negative for opiates. Security will bring patient's belongings to today.
--- NOTE | 2021-01-27 16:24 | P.HPPS_ITS ---
HPI Chief Complaint: Suicide Attempt HPI Past Psychiatric History: The patient is a 35 year old female, , mother of 4 minor children, currently living with her family, unemployed on disability with several ancillary services provided by [facility]. Her psychiatric provider is Chang Ball and she has [facility] that prepackages her medications and visits her daily and case managing services. The patient has an extensive history of Bipolar disorder, Borderline Personality disorder, past history of trauma and several admissions into the hospital for mood symptoms. Her last admission was 2 months ago. During the intake interview, the patient reported an exacerbation of depressive symptoms for the last 2 months, her provider has started Zoloft and recently, 2 or 3 weeks before, increased her Zoloft up to 150 mg with limited improvement. She complained of depressed mood, anhedonia, lack of energy and feelings of hopelessness. The trigger of the current suicidal attempt was an argument with her previous partner who cheated on her and broke up with her 2 weeks ago. The day of the overdose, she had an argument with her, and she impulsively, without major planning took an overdose of Gabapentin, Klonopin and other left- over medications that she had from previous providers. She adamantly denied suicidal ideation, she acknowledged depression but she was able to contract for safety. We discussed at length her diagnosis, prognosis and options and she agreed to increase Zoloft up to 200 mg. She denies psychosis or manic symptoms. Medical Evaluation Reviewed: Yes [facility] Medical History Anemia Anxiety Asthma B12 deficiency Bipolar disorder, unspecified Borderline personality disorder Bronchitis Cervical cancer COPD (chronic obstructive pulmonary disease) Depression Depression Migraines Posttraumatic stress disorder Smoker Surgical History History of total splenectomy Family History: Many members have substance abuse. Her mother was admitted several times for mood symptoms and probably substance abuse. Social History: lives with ex-H and 4 kids (15, 14, 7, 2). Hx DCF intervention. In relationship with a girlfriend he does not know about it Trauma History: Extensive as noted in past Diagnostics Vital Signs (24Hr): Vital Signs - 24 hr 01/26/21 18:00 01/26/21 20:00 01/26/21 23:55 Temperature 97.7 F Pulse Rate 72 70 Respiratory Rate 18 15 18 Blood Pressure 101/58 L 103/62 Pulse Oximetry 98 92 01/27/21 06:00 01/27/21 09:24 01/27/21 10:32 Temperature 98.3 F 97.9 F Pulse Rate 64 64 76 Respiratory Rate 15 18 Blood Pressure 123/65 123/65 113/86 Pulse Oximetry 94 94 01/27/21 13:28 01/27/21 14:11 Temperature 97.3 F Pulse Rate 70 70 Respiratory Rate 16 Blood Pressure 127/85 127/85 Pulse Oximetry 97 Body Mass Index 29.7 Labs Results: 01/26/21 10:36 01/26/21 14:06 Labs: Laboratory Results - last 48 hr 01/26/21 01/26/21 01/26/21 10:36 10:36 10:36 WBC 11.8 H RBC 5.10 Hgb 15.1 Hct 46.1 MCV 90.4 MCH 29.6 MCHC 32.8 RDW 14.9 Plt Count 522 H MPV 10.4 Immature Gran % (Auto) Cancelled Neut % (Auto) Cancelled Lymph % (Auto) Cancelled [place] % (Auto) Cancelled Eos % (Auto) Cancelled Baso % (Auto) Cancelled Lymph # (Auto) Cancelled [place] # (Auto) Cancelled Eos # (Auto) Cancelled Baso # (Auto) Cancelled Abs Immat Gran (auto) Cancelled Absolute Neuts (auto) Cancelled Absolute Nucleated RBC 0.000 Nucleated RBC % (auto) 0.0 Neutrophils % (Manual) 63 Band Neutrophils % 1 L Lymphocytes % (Manual) 30 Monocytes % (Manual) 2 Eosinophils % (Manual) 3 Basophils % (Manual) 1 Abs Neuts (Manual) 7.6 Lymphocytes # (Manual) 3.5 Monocytes # (Manual) 0.2 Eosinophils # (Manual) 0.4 Basophils # (Manual) 0.1 Platelet Estimate INCREASED Plt Morphology Comment NORMAL RBC Morphology NOTED Acanthocytes (Spur) 2+ (3-5) Schistocytes 2+ (3-5) Hold Blue Top SEE NOTE Sodium Potassium Chloride Carbon Dioxide Anion Gap BUN Creatinine Estim Creat Clear Calc Estimated GFR Random Glucose Calcium Magnesium Total Bilirubin Direct Bilirubin AST ALT Alkaline Phosphatase Total Protein Albumin Urine Color Urine Appearance Urine pH Ur Specific [place] Urine Protein Urine Glucose (UA) Urine Ketones Urine Blood Urine Nitrite Ur Leukocyte Esterase Urine RBC Urine WBC Ur Squamous Epith Cells Urine Bacteria Urine Test Salicylates Urine Opiates Screen Acetaminophen Ur Barbiturates Screen Ur Phencyclidine Scrn Ur Amphetamines Screen U Benzodiazepines Scrn Urine Cocaine Screen U Marijuana (THC) Screen Ethyl Alcohol COVID-19 (KENYA) Negative COVID-19 Clin Com See Note 01/26/21 01/26/21 01/26/21 10:36 10:37 10:37 WBC RBC Hgb Hct MCV MCH MCHC RDW Plt Count MPV Immature Gran % (Auto) Neut % (Auto) Lymph % (Auto) [place] % (Auto) Eos % (Auto) Baso % (Auto) Lymph # (Auto) [place] # (Auto) Eos # (Auto) Baso # (Auto) Abs Immat Gran (auto) Absolute Neuts (auto) Absolute Nucleated RBC Nucleated RBC % (auto) Neutrophils % (Manual) Band Neutrophils % Lymphocytes % (Manual) Monocytes % (Manual) Eosinophils % (Manual) Basophils % (Manual) Abs Neuts (Manual) Lymphocytes # (Manual) Monocytes # (Manual) Eosinophils # (Manual) Basophils # (Manual) Platelet Estimate Plt Morphology Comment RBC Morphology Acanthocytes (Spur) Schistocytes Hold Blue Top Sodium Potassium Chloride Carbon Dioxide Anion Gap BUN Creatinine Estim Creat Clear Calc Estimated GFR Random Glucose Calcium Magnesium Total Bilirubin Direct Bilirubin AST ALT Alkaline Phosphatase Total Protein Albumin Urine Color YELLOW Urine Appearance CLEAR Urine pH 6.0 Ur Specific [place] 1.020 Urine Protein NEG Urine Glucose (UA) NEG Urine Ketones NEG Urine Blood NEG Urine Nitrite NEG Ur Leukocyte Esterase TRACE H Urine RBC 0 Urine WBC 1-4 Ur Squamous Epith Cells 4+ Urine Bacteria TRACE Urine Test NEGATIVE Salicylates Urine Opiates Screen Not Detected Acetaminophen Ur Barbiturates Screen Not Detected Ur Phencyclidine Scrn Not Detected Ur Amphetamines Screen POSITIVE H U Benzodiazepines Scrn POSITIVE H Urine Cocaine Screen Not Detected U Marijuana (THC) Screen POSITIVE H Ethyl Alcohol COVID-19 (KENYA) COVID-19 Matter and Form Com 01/26/21 01/26/21 14:06 14:06 WBC RBC Hgb Hct MCV MCH MCHC RDW Plt Count MPV Immature Gran % (Auto) Neut % (Auto) Lymph % (Auto) [place] % (Auto) Eos % (Auto) Baso % (Auto) Lymph # (Auto) [place] # (Auto) Eos # (Auto) Baso # (Auto) Abs Immat Gran (auto) Absolute Neuts (auto) Absolute Nucleated RBC Nucleated RBC % (auto) Neutrophils % (Manual) Band Neutrophils % Lymphocytes % (Manual) Monocytes % (Manual) Eosinophils % (Manual) Basophils % (Manual) Abs Neuts (Manual) Lymphocytes # (Manual) Monocytes # (Manual) Eosinophils # (Manual) Basophils # (Manual) Platelet Estimate Plt Morphology Comment RBC Morphology Acanthocytes (Spur) Schistocytes Hold Blue Top Sodium 140 Potassium 4.3 Chloride 107 Carbon Dioxide 24 Anion Gap 13 BUN 13 D Creatinine 0.83 Estim Creat Clear Calc 98.5 Estimated GFR > 60 Random Glucose 95 Calcium 9.4 Magnesium 2.3 Total Bilirubin 0.3 Direct Bilirubin < 0.2 AST 11 ALT 7 Alkaline Phosphatase 75 Total Protein 6.7 Albumin 4.1 Urine Color Urine Appearance Urine pH Ur Specific [place] Urine Protein Urine Glucose (UA) Urine Ketones Urine Blood Urine Nitrite Ur Leukocyte Esterase Urine RBC Urine WBC Ur Squamous Epith Cells Urine Bacteria Urine Test Salicylates < 5.0 L Urine Opiates Screen Acetaminophen < 1 Ur Barbiturates Screen Ur Phencyclidine Scrn Ur Amphetamines Screen U Benzodiazepines Scrn Urine Cocaine Screen U Marijuana (THC) Screen Ethyl Alcohol < 10 COVID-19 (KENYA) COVID-19 Clin Com Imaging Radiology Impressions: ITS Impressions Chest X-Ray 01/26/21 16:08 IMPRESSION: No evidence for acute disease. Meds/Allergies Meds Home Medications Acetaminophen (Acetaminophen 325 Mg Tablet) 650 mg PO Q6H PRN PRN Reason: Headache/Pain Mild Scale (1-3) Acetaminophen (Acetaminophen 325 Mg Tablet) 650 mg PO Q6H PRN PRN Reason: Headache/Pain Mild Scale (1-3) Al Hydroxide/Mg Hydroxide (Magnesium Hydrox/Alum Hydrox 30 Ml Oral.Susp) 30 ml PO Q6H PRN PRN Reason: Heartburn/Nausea Al Hydroxide/Mg Hydroxide (Magnesium Hydrox/Alum Hydrox 30 Ml Oral.Susp) 30 ml PO Q6H PRN PRN Reason: Heartburn/Nausea Albuterol Sulfate (Albuterol Sulfate (0.083%) 2.5 Mg/3 Ml Vial.Neb) 2.5 mg INHALE Q4H PRN PRN Reason: Shortness Of Breath Or Wheezing Albuterol Sulfate (Albuterol Sulfate 90 Mcg 8 Gm Inhaler) 2 puff INHALE Q4H PRN PRN Reason: shortness of breath or wheezing Cariprazine (Cariprazine Hcl 3 Mg Capsule) 6 mg PO DAILY JOSE Clonazepam (Clonazepam 1 Mg Tablet) 1 mg PO BID PRN PRN Reason: Anxiety Last Admin: 01/27/21 08:52 Dose: 1 mg Documented by: Clonidine HCl (Clonidine Hcl 0.1 Mg Tablet) 0.1 mg PO TID [facility]; Protocol Last Admin: 01/27/21 14:11 Dose: 0.1 mg Documented by: Fluticasone Propionate (Fluticasone Propionate Nasal 16 Gm [place]) 2 spray NOSTRIL-B DAILY [facility] Last Admin: 01/27/21 09:25 Dose: Not Given Documented by: Gabapentin (Gabapentin 100 Mg Capsule) 200 mg PO BEDTIME JOSE Gabapentin (Gabapentin 300 Mg Capsule) 300 mg PO DAILY [facility] Last Admin: 01/27/21 10:08 Dose: 300 mg Documented by: Hydroxyzine HCl (Hydroxyzine Hcl 25 Mg Tablet) 25 mg PO BEDTIME PRN PRN Reason: Anxiety Hydroxyzine HCl (Hydroxyzine Hcl 25 Mg Tablet) 25 mg PO BEDTIME PRN PRN Reason: Anxiety Magnesium Hydroxide (Milk Of Magnesia 30 Ml Oral.Susp) 30 ml PO DAILY PRN PRN Reason: Constipation Magnesium Hydroxide (Milk Of Magnesia 30 Ml Oral.Susp) 30 ml PO DAILY PRN PRN Reason: Constipation Omeprazole (Omeprazole 20 Mg Capsule.Dr) 20 mg PO DAILY@0630 [facility] Last Admin: 01/27/21 10:08 Dose: 20 mg Documented by: Sertraline HCl (Sertraline Hcl 100 Mg Tablet) 200 mg PO DAILY [facility] Trazodone HCl (Trazodone Hcl 50 Mg Tablet) 50 mg PO BEDTIME PRN PRN Reason: Insomnia Trazodone HCl (Trazodone Hcl 50 Mg Tablet) 50 mg PO BEDTIME PRN PRN Reason: Insomnia Allergies Allergies Allergy/AdvReac Type Severity Reaction Status Date / Time SEASONAL ALLERGIES Allergy Intermediate RUNNY NOSE Uncoded 12/10/20 09:58 WATERY EYES Mental Status Exam Mental Status Exam Patient Appearance: Fatigued and Disheveled Patient Orientation: Person, Place, Time and Situation Level of Consciousness: Awake Patient Behavior: Appropriate and Cooperative Mood Description: Withdrawn Affect Description: Constricted and Depressed Patient Cognition Impaired: No Ability to Follow Directions: Good Speech Pattern: Clear Memory Description: Intact Hallucinations: None Delusions: Not Present Thought Process: Goal Oriented Thought Content: positive for Intact Depressive Symptoms: Increased Irritability, Unhappiness and Low Self Esteem Judgement: Poor Judgement and Insight: Insight is impaired Assessment & Plan Patient educated on: diagnosis, medication risk/benefits and therapeutic strategies Informed Consent: understands Reason for continued inpatient stay Substantial Risk for: harm to self
--- NOTE | 2021-01-27 17:27 | PC.ADMIT ---
Tammy is a 35 year old white Chinese speaking female who presents to [facility] from the [facility] ED on a CV status. Patient is covid negative. U-Tox was positive for benzo, amphetamines, and cannabis. Patient reports these are prescribed medications. Patient has been inpatient on M-5 in the past. Patient came to the [facility] after being found to have altered mental status by [facility] worker who arrived to give patient her morning medication. Patient reported she had ingested a large quantity of her medications including 40-*100mg Gabapentin, 15 - 1mg of Klonopin, Trazodone, and Benadryl. Patient reports passive SI, but states she does not want to end her life. Patient reported feeling more depressed with no energy or motivation, loss of interest, and poor self -care, and recent breakup with girlfriend. Patient denies SI during nursing assessment. Patient has a flat affect and reports elevated anxiety and depression. Patient reporting poor sleep. Patient was pleasant and cooperative with admission process. Patient's current mood appears stable. patient signed a 3-day notice today that is up on 01/30/2021. All medications orders received. Nicotine replacement was ordered and patient refused flu vaccine. Patient reports feeling safe and placed on 15 minute safety checks. Patient to be placed in Psych/Dual groups. Patient was oriented to unit.
[2021-01-27] MEDS: traZODone HCL 50 MG TABLET PO (20:12)
[2021-01-27] MEDS: hydrOXYzine HCL 25 MG TABLET PO (20:13)
[2021-01-28] MEDS: Omeprazole 20 MG CAPSULE.DR PO (05:15)
[2021-01-28 06:00] VITALS: BP 109/74; PULSE 70; TEMP 36.1
[2021-01-28] MEDS: Cariprazine HCl 3 MG CAPSULE 6 MG PO (08:03)
[2021-01-28 08:04] VITALS: BP 112/72; PULSE 88
[2021-01-28] MEDS: clonazePAM 1 MG TABLET PO ×2 (08:04→20:56)
[2021-01-28] MEDS: cloNIDine HCL 0.1 MG TABLET PO ×3 (08:04→20:51)
[2021-01-28] MEDS: Sertraline HCL 100 MG TABLET 200 MG PO (08:04)
[2021-01-28] MEDS: Gabapentin 300 MG CAPSULE PO (09:42)
[2021-01-28] MEDS: Amphetamine Mixed Salts 10 MG TABLET PO ×2 (09:42→17:33)
[2021-01-28] MEDS: Nicotine 21 MG PATCH.TD24 TRANSDERMA (09:42)
[2021-01-28] MEDS: Fluticasone Propionate Nasal 16 GM SPRAY 2 SPRAY NOSTRIL-B (09:42)
--- NOTE | 2021-01-28 10:07 | P.PNPSI_ITS ---
Subjective Subjective Date of Service: 01/28/21 Reason For Visit: Suicide Attempt Subjective Notes: 3 Day Interim History: The patient denies new symptoms, she denies suicidal ideation and she signed a 3 day letter. She denied side effects with the current treatment. She adamantly denied suicidal ideation at this time Medication Compliance: Yes Side effects from medications: No Review of Systems Review of Systems Yes all other systems are reviewed and are negative Mental Status Exam Mental Status Exam Patient Appearance: Disheveled Patient Orientation: Person, Place, Time and Situation Level of Consciousness: Awake Patient Behavior: Appropriate Mood Description: Withdrawn and Depressed Affect Description: Calm and Constricted Patient Cognition Impaired: No Ability to Follow Directions: Good Speech Pattern: Clear Memory Description: Intact Hallucinations: None Delusions: Not Present Thought Process: Goal Oriented Thought Content: positive for Logical Depressive Symptoms: Low Self Esteem Judgement: Fair Judgement and Insight: Judgment limited, insight improved Diagnostics Vital Signs (24Hr): Vital Signs - 24 hr 01/27/21 10:32 01/27/21 13:28 01/27/21 14:11 Temperature 97.9 F 97.3 F Pulse Rate 76 70 70 Respiratory Rate 18 16 Blood Pressure 113/86 127/85 127/85 Pulse Oximetry 94 97 01/27/21 16:24 01/27/21 20:12 01/28/21 06:00 Temperature 97.0 F 97 F Pulse Rate 78 65 70 Respiratory Rate 18 Blood Pressure 107/68 121/84 109/74 Pulse Oximetry 93 01/28/21 08:04 Temperature Pulse Rate 88 Respiratory Rate Blood Pressure 112/72 Pulse Oximetry Body Mass Index 29.7 Labs Results: 01/26/21 10:36 01/26/21 14:06 Labs: Laboratory Results - last 48 hr 01/26/21 01/26/21 01/26/21 10:36 10:36 10:36 WBC 11.8 H RBC 5.10 Hgb 15.1 Hct 46.1 MCV 90.4 MCH 29.6 MCHC 32.8 RDW 14.9 Plt Count 522 H MPV 10.4 Immature Gran % (Auto) Cancelled Neut % (Auto) Cancelled Lymph % (Auto) Cancelled [place] % (Auto) Cancelled Eos % (Auto) Cancelled Baso % (Auto) Cancelled Lymph # (Auto) Cancelled [place] # (Auto) Cancelled Eos # (Auto) Cancelled Baso # (Auto) Cancelled Abs Immat Gran (auto) Cancelled Absolute Neuts (auto) Cancelled Absolute Nucleated RBC 0.000 Nucleated RBC % (auto) 0.0 Neutrophils % (Manual) 63 Band Neutrophils % 1 L Lymphocytes % (Manual) 30 Monocytes % (Manual) 2 Eosinophils % (Manual) 3 Basophils % (Manual) 1 Abs Neuts (Manual) 7.6 Lymphocytes # (Manual) 3.5 Monocytes # (Manual) 0.2 Eosinophils # (Manual) 0.4 Basophils # (Manual) 0.1 Platelet Estimate INCREASED Plt Morphology Comment NORMAL RBC Morphology NOTED Acanthocytes (Spur) 2+ (3-5) Schistocytes 2+ (3-5) Hold Blue Top SEE NOTE Sodium Potassium Chloride Carbon Dioxide Anion Gap BUN Creatinine Estim Creat Clear Calc Estimated GFR Random Glucose Calcium Magnesium Total Bilirubin Direct Bilirubin AST ALT Alkaline Phosphatase Total Protein Albumin Urine Color Urine Appearance Urine pH Ur Specific [place] Urine Protein Urine Glucose (UA) Urine Ketones Urine Blood Urine Nitrite Ur Leukocyte Esterase Urine RBC Urine WBC Ur Squamous Epith Cells Urine Bacteria Urine Test Salicylates Urine Opiates Screen Acetaminophen Ur Barbiturates Screen Ur Phencyclidine Scrn Ur Amphetamines Screen U Benzodiazepines Scrn Urine Cocaine Screen U Marijuana (THC) Screen Ethyl Alcohol COVID-19 (KENYA) Negative COVID-19 Clin Com See Note 01/26/21 01/26/21 01/26/21 10:36 10:37 10:37 WBC RBC Hgb Hct MCV MCH MCHC RDW Plt Count MPV Immature Gran % (Auto) Neut % (Auto) Lymph % (Auto) [place] % (Auto) Eos % (Auto) Baso % (Auto) Lymph # (Auto) [place] # (Auto) Eos # (Auto) Baso # (Auto) Abs Immat Gran (auto) Absolute Neuts (auto) Absolute Nucleated RBC Nucleated RBC % (auto) Neutrophils % (Manual) Band Neutrophils % Lymphocytes % (Manual) Monocytes % (Manual) Eosinophils % (Manual) Basophils % (Manual) Abs Neuts (Manual) Lymphocytes # (Manual) Monocytes # (Manual) Eosinophils # (Manual) Basophils # (Manual) Platelet Estimate Plt Morphology Comment RBC Morphology Acanthocytes (Spur) Schistocytes Hold Blue Top Sodium Potassium Chloride Carbon Dioxide Anion Gap BUN Creatinine Estim Creat Clear Calc Estimated GFR Random Glucose Calcium Magnesium Total Bilirubin Direct Bilirubin AST ALT Alkaline Phosphatase Total Protein Albumin Urine Color YELLOW Urine Appearance CLEAR Urine pH 6.0 Ur Specific [place] 1.020 Urine Protein NEG Urine Glucose (UA) NEG Urine Ketones NEG Urine Blood NEG Urine Nitrite NEG Ur Leukocyte Esterase TRACE H Urine RBC 0 Urine WBC 1-4 Ur Squamous Epith Cells 4+ Urine Bacteria TRACE Urine Test NEGATIVE Salicylates Urine Opiates Screen Not Detected Acetaminophen Ur Barbiturates Screen Not Detected Ur Phencyclidine Scrn Not Detected Ur Amphetamines Screen POSITIVE H U Benzodiazepines Scrn POSITIVE H Urine Cocaine Screen Not Detected U Marijuana (THC) Screen POSITIVE H Ethyl Alcohol COVID-19 (KENYA) COVID-19 [employer] 01/26/21 01/26/21 14:06 14:06 WBC RBC Hgb Hct MCV MCH MCHC RDW Plt Count MPV Immature Gran % (Auto) Neut % (Auto) Lymph % (Auto) [place] % (Auto) Eos % (Auto) Baso % (Auto) Lymph # (Auto) [place] # (Auto) Eos # (Auto) Baso # (Auto) Abs Immat Gran (auto) Absolute Neuts (auto) Absolute Nucleated RBC Nucleated RBC % (auto) Neutrophils % (Manual) Band Neutrophils % Lymphocytes % (Manual) Monocytes % (Manual) Eosinophils % (Manual) Basophils % (Manual) Abs Neuts (Manual) Lymphocytes # (Manual) Monocytes # (Manual) Eosinophils # (Manual) Basophils # (Manual) Platelet Estimate Plt Morphology Comment RBC Morphology Acanthocytes (Spur) Schistocytes Hold Blue Top Sodium 140 Potassium 4.3 Chloride 107 Carbon Dioxide 24 Anion Gap 13 BUN 13 D Creatinine 0.83 Estim Creat Clear Calc 98.5 Estimated GFR > 60 Random Glucose 95 Calcium 9.4 Magnesium 2.3 Total Bilirubin 0.3 Direct Bilirubin < 0.2 AST 11 ALT 7 Alkaline Phosphatase 75 Total Protein 6.7 Albumin 4.1 Urine Color Urine Appearance Urine pH Ur Specific [place] Urine Protein Urine Glucose (UA) Urine Ketones Urine Blood Urine Nitrite Ur Leukocyte Esterase Urine RBC Urine WBC Ur Squamous Epith Cells Urine Bacteria Urine Test Salicylates < 5.0 L Urine Opiates Screen Acetaminophen < 1 Ur Barbiturates Screen Ur Phencyclidine Scrn Ur Amphetamines Screen U Benzodiazepines Scrn Urine Cocaine Screen U Marijuana (THC) Screen Ethyl Alcohol < 10 COVID-19 (KENYA) COVID-19 Clin Com Imaging Radiology Impressions: ITS Impressions Chest X-Ray 01/26/21 16:08 IMPRESSION: No evidence for acute disease. Medications Medications Current Medications Generic Name Dose Route Start Last Admin Trade Name Fernandoq PRN Reason Stop Dose Admin Acetaminophen 650 mg 01/27/21 14:30 Acetaminophen 325 Mg Tablet PO Q6H PRN Headache/Pain Mild Scale (1-3) Acetaminophen 650 mg 01/27/21 16:21 Acetaminophen 325 Mg Tablet PO Q6H PRN Headache/Pain Mild Scale (1-3) Al Hydroxide/Mg Hydroxide 30 ml 01/27/21 14:30 Magnesium Hydrox/Alum Hydrox 30 Ml Oral.Susp PO Q6H PRN Heartburn/Nausea Al Hydroxide/Mg Hydroxide 30 ml 01/27/21 16:21 Magnesium Hydrox/Alum Hydrox 30 Ml Oral.Susp PO Q6H PRN Heartburn/Nausea Albuterol Sulfate 2.5 mg 01/27/21 06:31 Albuterol Sulfate (0.083%) 2.5 Mg/3 Ml Vial.Neb INHALE Q4H PRN Shortness Of Breath Or Wheezing Albuterol Sulfate 2 puff 01/27/21 06:31 Albuterol Sulfate 90 Mcg 8 Gm Inhaler INHALE Q4H PRN shortness of breath or wheezing Amphetamine/Dextroamphetamine 10 mg 01/28/21 09:15 01/28/21 09:42 Amphetamine Mixed Salts 10 Mg Tablet PO 10 mg BID@0800,1700 JOSE Administration Cariprazine 6 mg 01/28/21 09:00 01/28/21 08:03 Cariprazine Hcl 3 Mg Capsule PO 6 mg DAILY JOSE Administration Clonazepam 1 mg 01/27/21 06:31 01/28/21 08:04 Clonazepam 1 Mg Tablet PO 1 mg BID PRN Administration Anxiety Clonazepam 0.5 mg 01/29/21 13:00 Clonazepam 0.5 Mg Tablet PO DAILY JOSE Clonidine HCl 0.1 mg 01/27/21 09:00 01/28/21 08:04 Clonidine Hcl 0.1 Mg Tablet PO 0.1 mg TID JOSE Administration Protocol Fluticasone Propionate 2 spray 01/27/21 09:00 01/28/21 09:42 Fluticasone Propionate Nasal 16 Gm [place] NOSTRIL-B 2 spray DAILY JOSE Administration Gabapentin 200 mg 01/27/21 21:00 Gabapentin 100 Mg Capsule PO BEDTIME JOSE Gabapentin 300 mg 01/27/21 09:00 01/27/21 10:08 Gabapentin 300 Mg Capsule PO 300 mg DAILY JOSE Administration Hydroxyzine HCl 25 mg 01/27/21 14:30 Hydroxyzine Hcl 25 Mg Tablet PO BEDTIME PRN Anxiety Hydroxyzine HCl 25 mg 01/27/21 16:21 01/27/21 20:13 Hydroxyzine Hcl 25 Mg Tablet PO 25 mg BEDTIME PRN Administration Anxiety Magnesium Hydroxide 30 ml 01/27/21 14:30 Milk Of Magnesia 30 Ml Oral.Susp PO DAILY PRN Constipation Magnesium Hydroxide 30 ml 01/27/21 16:21 Milk Of Magnesia 30 Ml Oral.Susp PO DAILY PRN Constipation Nicotine 21 mg 01/28/21 09:10 01/28/21 09:42 Nicotine 21 Mg Patch.Td24 TRANSDERMA 21 mg DAILY JOSE Administration Nicotine Polacrilex 4 mg 01/28/21 09:09 Nicotine Polacrilex 4 Mg Lozenge BUCCAL Q2H PRN Nicotine Cravings Omeprazole 20 mg 01/27/21 09:00 01/28/21 05:15 Omeprazole 20 Mg Capsule.Dr PO 20 mg DAILY@0630 JOSE Administration Sertraline HCl 200 mg 01/28/21 09:00 01/28/21 08:04 Sertraline Hcl 100 Mg Tablet PO 200 mg DAILY JOSE Administration Trazodone HCl 50 mg 01/27/21 06:31 Trazodone Hcl 50 Mg Tablet PO BEDTIME PRN Insomnia Trazodone HCl 50 mg 01/27/21 16:21 01/27/21 20:12 Trazodone Hcl 50 Mg Tablet PO 50 mg BEDTIME PRN Administration Insomnia Allergies Allergies Allergy/AdvReac Type Severity Reaction Status Date / Time SEASONAL ALLERGIES Allergy Intermediate RUNNY NOSE Uncoded 12/10/20 09:58 WATERY EYES Assessment & Plan Assessment & Plan (1) Polysubstance overdose: Qualifiers: Encounter type: initial encounter Injury intent: intentional self-harm Qualified Code(s): T50.902A - Poisoning by unspecified drugs, medicaments and biological substances, intentional self-harm, initial encounter Status: Acute Code(s): T50.901A - Poisoning by unspecified drugs, medicaments and biological substances, accidental (unintentional), initial encounter The patient is a 35 year old female with bipolar disorder, borderline personality disorder, past history of trauma with several ancillary services and several admissions for suicidal attempts and gestures. The current episode was triggered by conflicts with the ex-partner. At this moment, she regrets the overdose and she is future oriented, she denies suicidal ideation. Greater than 50% of the session was spent on counseling and/or coordination of care Patient educated on: diagnosis and medication risk/benefits Informed Consent: understands Reason for contiued inpatient stay Substantial Risk for: med/psych decompensation
[2021-01-28 10:10] VITALS: BP 112/72; PULSE 88; RESP 18; O2SAT 98
[2021-01-28 14:03] VITALS: BP 137/88; PULSE 115
[2021-01-28] MEDS: clonazePAM 0.5 MG TABLET PO (14:03)
[2021-01-28 16:58] VITALS: BP 106/66; PULSE 60; RESP 18; TEMP 36.2; O2SAT 95
[2021-01-28 20:51] VITALS: BP 113/75; PULSE 76
[2021-01-28] MEDS: traZODone HCL 50 MG TABLET PO (20:51)
[2021-01-28] MEDS: Gabapentin 100 MG CAPSULE 200 MG PO (20:51)
[2021-01-28] MEDS: hydrOXYzine HCL 25 MG TABLET PO (20:51)
[2021-01-29 04:50] VITALS: BP 100/51; PULSE 66; RESP 16; TEMP 36.3; O2SAT 96
[2021-01-29] MEDS: Omeprazole 20 MG CAPSULE.DR PO (05:49)
[2021-01-29] MEDS: Nicotine 21 MG PATCH.TD24 TRANSDERMA (08:43)
[2021-01-29] MEDS: Amphetamine Mixed Salts 10 MG TABLET PO ×2 (08:45→16:56)
[2021-01-29] MEDS: clonazePAM 0.5 MG TABLET PO ×2 (08:45→16:56)
[2021-01-29] MEDS: Cariprazine HCl 3 MG CAPSULE 6 MG PO (08:45)
[2021-01-29 08:46] VITALS: BP 101/63; PULSE 120
[2021-01-29] MEDS: cloNIDine HCL 0.1 MG TABLET PO ×2 (08:46→15:02)
--- NOTE | 2021-01-29 10:01 | P.PNPSI_ITS ---
Subjective Subjective Date of Service: 01/29/21 Reason For Visit: Suicide Attempt Subjective Notes: Conditional Voluntary and 3 Day Interim History: The patient reported feeling better, she adamantly denied suicidal ideation or safety concerns. I talked with his outpatient provider Nayla Ball and apparently, she is nearly to baseline. Medication Compliance: Yes Side effects from medications: No Attending Groups: Intermittent Review of Systems Acute medical concerns: No Medical Review of Systems: unchanged Mental Status Exam Mental Status Exam Patient Appearance: Appropriate Patient Orientation: Person, Place, Time and Situation Level of Consciousness: Awake Patient Behavior: Appropriate Mood Description: Constricted Affect Description: Depressed Patient Cognition Impaired: No Ability to Follow Directions: Good Speech Pattern: Clear Memory Description: Intact Hallucinations: None Delusions: Not Present Thought Process: Goal Oriented Thought Content: positive for Logical Depressive Symptoms: Low Self Esteem Judgement: Fair Judgement and Insight: Insight improved Diagnostics Vital Signs (24Hr): Vital Signs - 24 hr 01/28/21 10:10 01/28/21 14:03 01/28/21 16:58 Temperature 97.2 F Pulse Rate 88 115 H 60 Respiratory Rate 18 18 Blood Pressure 112/72 137/88 106/66 Pulse Oximetry 98 95 01/28/21 20:51 01/29/21 04:50 01/29/21 08:46 Temperature 97.4 F Pulse Rate 76 66 120 H Respiratory Rate 16 Blood Pressure 113/75 100/51 L 101/63 Pulse Oximetry 96 Body Mass Index 29.7 Labs Results: 01/26/21 10:36 01/26/21 14:06 Imaging Radiology Impressions: ITS Impressions Chest X-Ray 01/26/21 16:08 IMPRESSION: No evidence for acute disease. Medications Medications Current Medications Generic Name Dose Route Start Last Admin Trade Name Freq PRN Reason Stop Dose Admin Acetaminophen 650 mg 01/27/21 14:30 Acetaminophen 325 Mg Tablet PO Q6H PRN Headache/Pain Mild Scale (1-3) Acetaminophen 650 mg 01/27/21 16:21 Acetaminophen 325 Mg Tablet PO Q6H PRN Headache/Pain Mild Scale (1-3) Al Hydroxide/Mg Hydroxide 30 ml 01/27/21 14:30 Magnesium Hydrox/Alum Hydrox 30 Ml Oral.Susp PO Q6H PRN Heartburn/Nausea Al Hydroxide/Mg Hydroxide 30 ml 01/27/21 16:21 Magnesium Hydrox/Alum Hydrox 30 Ml Oral.Susp PO Q6H PRN Heartburn/Nausea Albuterol Sulfate 2.5 mg 01/27/21 06:31 Albuterol Sulfate (0.083%) 2.5 Mg/3 Ml Vial.Neb INHALE Q4H PRN Shortness Of Breath Or Wheezing Albuterol Sulfate 2 puff 01/27/21 06:31 Albuterol Sulfate 90 Mcg 8 Gm Inhaler INHALE Q4H PRN shortness of breath or wheezing Amphetamine/Dextroamphetamine 10 mg 01/28/21 09:15 01/29/21 08:45 Amphetamine Mixed Salts 10 Mg Tablet PO 10 mg BID@0800,1700 JOSE Administration Cariprazine 6 mg 01/28/21 09:00 01/29/21 08:45 Cariprazine Hcl 3 Mg Capsule PO 6 mg DAILY JOSE Administration Clonazepam 1 mg 01/27/21 06:31 01/28/21 20:56 Clonazepam 1 Mg Tablet PO 1 mg BID PRN Administration Anxiety Clonazepam 0.5 mg 01/28/21 15:00 01/29/21 08:45 Clonazepam 0.5 Mg Tablet PO 0.5 mg DAILY JOSE Administration Clonidine HCl 0.1 mg 01/27/21 09:00 01/29/21 08:46 Clonidine Hcl 0.1 Mg Tablet PO 0.1 mg TID JOSE Administration Protocol Fluticasone Propionate 2 spray 01/27/21 09:00 01/28/21 09:42 Fluticasone Propionate Nasal 16 Gm [employer] NOSTRIL-B 2 spray DAILY JOSE Administration Gabapentin 200 mg 01/27/21 21:00 01/28/21 20:51 Gabapentin 100 Mg Capsule PO 200 mg BEDTIME JOSE Administration Gabapentin 300 mg 01/27/21 09:00 01/27/21 10:08 Gabapentin 300 Mg Capsule PO 300 mg DAILY JOSE Administration Hydroxyzine HCl 25 mg 01/27/21 14:30 01/28/21 20:51 Hydroxyzine Hcl 25 Mg Tablet PO 25 mg BEDTIME PRN Administration Anxiety Hydroxyzine HCl 25 mg 01/27/21 16:21 01/27/21 20:13 Hydroxyzine Hcl 25 Mg Tablet PO 25 mg BEDTIME PRN Administration Anxiety Magnesium Hydroxide 30 ml 01/27/21 14:30 Milk Of Magnesia 30 Ml Oral.Susp PO DAILY PRN Constipation Magnesium Hydroxide 30 ml 01/27/21 16:21 Milk Of Magnesia 30 Ml Oral.Susp PO DAILY PRN Constipation Nicotine 21 mg 01/28/21 09:10 01/29/21 08:43 Nicotine 21 Mg Patch.Td24 TRANSDERMA 21 mg DAILY JOSE Administration Nicotine Polacrilex 4 mg 01/28/21 09:09 Nicotine Polacrilex 4 Mg Lozenge BUCCAL Q2H PRN Nicotine Cravings Omeprazole 20 mg 01/27/21 09:00 01/29/21 05:49 Omeprazole 20 Mg Capsule.Dr PO 20 mg DAILY@0630 JOSE Administration Sertraline HCl 200 mg 01/28/21 09:00 01/28/21 08:04 Sertraline Hcl 100 Mg Tablet PO 200 mg DAILY JOSE Administration Trazodone HCl 50 mg 01/27/21 06:31 01/28/21 20:51 Trazodone Hcl 50 Mg Tablet PO 50 mg BEDTIME PRN Administration Insomnia Trazodone HCl 50 mg 01/27/21 16:21 01/27/21 20:12 Trazodone Hcl 50 Mg Tablet PO 50 mg BEDTIME PRN Administration Insomnia Allergies Allergies Allergy/AdvReac Type Severity Reaction Status Date / Time SEASONAL ALLERGIES Allergy Intermediate RUNNY NOSE Uncoded 12/10/20 09:58 WATERY EYES Assessment & Plan The patient has been reasssessd and she denied suicidal ideation. We explored options to avoid future admissions and avoid self-harm. Plan: Discharge tomorrow with coordination of services Greater than 50% of the session was spent on counseling and/or coordination of care Patient educated on: diagnosis, medication risk/benefits and therapeutic strategies Informed Consent: understands Reason for contiued inpatient stay Substantial Risk for: harm to self
[2021-01-29] MEDS: Fluticasone Propionate Nasal 16 GM SPRAY 2 SPRAY NOSTRIL-B (10:09)
[2021-01-29] MEDS: Sertraline HCL 100 MG TABLET 200 MG PO (10:09)
[2021-01-29] MEDS: clonazePAM 1 MG TABLET PO ×2 (10:11→20:27)
[2021-01-29 15:02] VITALS: BP 109/70; PULSE 71
[2021-01-29 15:47] VITALS: BMI 29.4
[2021-01-29 17:46] VITALS: BP 102/59; PULSE 59; TEMP 36.1
[2021-01-29] MEDS: Gabapentin 100 MG CAPSULE 200 MG PO (20:27)
[2021-01-29 20:28] VITALS: BP 101/51; PULSE 62
[2021-01-29] MEDS: hydrOXYzine HCL 25 MG TABLET PO (20:35)
[2021-01-29] MEDS: traZODone HCL 50 MG TABLET PO (20:35)
[2021-01-30 05:50] VITALS: BP 124/62; PULSE 66; RESP 16; TEMP 36.4; O2SAT 97
[2021-01-30] MEDS: Acetaminophen 325 MG TABLET 650 MG PO (05:56)
[2021-01-30] MEDS: Omeprazole 20 MG CAPSULE.DR PO (05:56)
[2021-01-30] MEDS: Nicotine 21 MG PATCH.TD24 TRANSDERMA (08:25)
[2021-01-30] MEDS: Fluticasone Propionate Nasal 16 GM SPRAY 2 SPRAY NOSTRIL-B (08:25)
[2021-01-30] MEDS: Sertraline HCL 100 MG TABLET 200 MG PO (08:26)
[2021-01-30] MEDS: Amphetamine Mixed Salts 10 MG TABLET PO (08:26)
[2021-01-30] MEDS: Gabapentin 300 MG CAPSULE PO (08:27)
[2021-01-30] MEDS: clonazePAM 1 MG TABLET PO (08:27)
[2021-01-30] MEDS: Cariprazine HCl 3 MG CAPSULE 6 MG PO (08:27)
[2021-01-30 08:56] VITALS: BP 117/76; PULSE 86; RESP 18
[2021-01-30 08:59] VITALS: BP 117/76; PULSE 86
[2021-01-30] MEDS: cloNIDine HCL 0.1 MG TABLET PO (08:59)
--- NOTE | 2021-01-30 10:03 | PM.PSYDC ---
DS: Providers Provider Date of Service: 01/30/21 Date of admission: 01/27/21 12:58 Date of discharge: 01/30/21 Primary care physician: Rhoda Pina MD Attending physician on admission: Hari Jiménez Attending physician on discharge: Hari Jiménez DS: Diagnosis Discharge Diagnosis (1) Polysubstance overdose: Status: Acute (2) Bipolar 2 disorder: Status: Acute (3) Borderline personality disorder: Status: Acute DS: Medications Discharge Medications Home Medications: Home Medications Medication Instructions Recorded Confirmed albuterol sulfate 2.5 mg INHALATION Q4-6H PRN 12/15/20 01/26/21 fluticasone propionate 50 2 spray INTRANASAL DAILY 12/15/20 01/26/21 mcg/actuation nasal spray,suspension Previous Rx's Medication Instructions Recorded Excedrin Migraine 1 tab PO DAILY PRN 5 Days #5 tab 10/21/20 Vraylar 6 mg PO DAILY 30 Days #30 cap 10/21/20 clonazepam 0.5 mg PO DAILY@1200 PRN 1 Days #2 10/21/20 tab clonazepam 1 mg PO BID PRN 1 Days #2 tab 10/21/20 clonidine HCl 0.1 mg PO TID 1 Days #3 tab 10/21/20 dextroamphetamine-amphetamine 25 mg PO QAM 1 Days #1 cap 10/21/20 gabapentin 200 mg PO BEDTIME 1 Days #1 cap 10/21/20 gabapentin 300 mg PO DAILY 1 Days #1 cap 10/21/20 pantoprazole 40 mg PO DAILY 1 Days #1 tab 10/21/20 sertraline 150 mg PO DAILY 30 Days #45 tab 10/21/20 trazodone 50 mg PO BEDTIME PRN 30 Days #30 10/21/20 tab albuterol sulfate 90 mcg/actuation 2 puff INHALATION Q4-6H PRN 60 01/12/21 aerosol inhaler Days #8.5 g Discharge Plan Discharge Anticipated Discharge Date/Time: 01/30/21 10:35 Patient Disposition: Home Health Service Referrals: siomara ferrell [Other] - 02/17/21 9:00 am maura [Other] - 02/02/21 2:00 pm Rhoda Pina MD [Primary Care Provider] - 02/04/21 9:30 am (VIA PHONE) Discharge Medications: No Action trazodone 50 mg Tablet 50 mg PO BEDTIME PRN (Reason: Insomnia) 30 Days Qty: 30 RF: 0 clonazepam 0.5 mg tablet 0.5 mg PO DAILY@1200 PRN (Reason: Anxiety) 1 Days Qty: 2 RF: 0 sertraline 100 mg tablet 150 mg PO DAILY 30 Days Qty: 45 RF: 0 clonazepam 1 mg tablet 1 mg PO BID PRN (Reason: Anxiety) 1 Days Qty: 2 RF: 0 pantoprazole 40 mg tablet,delayed release (DR/EC) 40 mg PO DAILY 1 Days Qty: 1 RF: 0 gabapentin 300 mg capsule 300 mg PO DAILY 1 Days Qty: 1 RF: 0 gabapentin 100 mg capsule 200 mg PO BEDTIME 1 Days Qty: 1 RF: 0 Excedrin Migraine 250-250-65 mg Tablet 1 tab PO DAILY PRN (Reason: Headache) 5 Days Qty: 5 RF: 0 dextroamphetamine-amphetamine 25 mg capsule,extended release 24hr 25 mg PO QAM 1 Days Qty: 1 RF: 0 Vraylar 6 mg capsule 6 mg PO DAILY 30 Days Qty: 30 RF: 0 clonidine HCl 0.1 mg tablet 0.1 mg PO TID 1 Days Qty: 3 RF: 0 fluticasone propionate 50 mcg/actuation spray,suspension 2 spray intranasal DAILY RF: 0 albuterol sulfate 2.5 mg /3 mL (0.083 %) solution for nebulization 2.5 mg inhalation Q4-6H PRN (Reason: Shortness Of Breath Or Wheezing) RF: 0 albuterol sulfate [ProAir HFA] 90 mcg/actuation HFA aerosol inhaler 2 puff inhalation Q4-6H PRN (Reason: shortness of breath or wheezing) 60 Days Qty: 8.5 RF: 2 Discharge Orders: Discharge Order (Routine); Ordered 01/30/21 Ordered By: Hari Jiménez Diet: regular diet Activity on Discharge: As tolerated Stand Alone Forms: Patient Portal Discharge page Care Plan Goals: Continue outpatient treatment at [facility] with ancillary services Health Concerns: Overdose resolved Plan of Treatment: F/U with regular providers Mental Status Exam Mental Status Exam Patient Appearance: Well Grooomed Patient Orientation: Person, Place, Time and Situation Level of Consciousness: Awake Patient Behavior: Appropriate Mood Description: Calm Affect Description: Withdrawn and Appropriate Patient Cognition Impaired: No Ability to Follow Directions: Good Speech Pattern: Clear Memory Description: Intact Hallucinations: None Delusions: Not Present Thought Content: positive for Intact Depressive Symptoms: Low Self Esteem Judgement: Fair Data Data Completed and Pending Completed studies during hospitalization [Text1]: 01/26/21 01/26/21 01/26/21 10:36 10:36 10:36 WBC 11.8 H RBC 5.10 Hgb 15.1 Hct 46.1 MCV 90.4 MCH 29.6 MCHC 32.8 RDW 14.9 Plt Count 522 H MPV 10.4 Immature Gran % (Auto) Cancelled Neut % (Auto) Cancelled Lymph % (Auto) Cancelled [place] % (Auto) Cancelled Eos % (Auto) Cancelled Baso % (Auto) Cancelled Lymph # (Auto) Cancelled [place] # (Auto) Cancelled Eos # (Auto) Cancelled Baso # (Auto) Cancelled Abs Immat Gran (auto) Cancelled Absolute Neuts (auto) Cancelled Absolute Nucleated RBC 0.000 Nucleated RBC % (auto) 0.0 Neutrophils % (Manual) 63 Band Neutrophils % 1 L Lymphocytes % (Manual) 30 Monocytes % (Manual) 2 Eosinophils % (Manual) 3 Basophils % (Manual) 1 Abs Neuts (Manual) 7.6 Lymphocytes # (Manual) 3.5 Monocytes # (Manual) 0.2 Eosinophils # (Manual) 0.4 Basophils # (Manual) 0.1 Platelet Estimate INCREASED Plt Morphology Comment NORMAL RBC Morphology NOTED Acanthocytes (Spur) 2+ (3-5) Schistocytes 2+ (3-5) Hold Blue Top SEE NOTE Sodium Potassium Chloride Carbon Dioxide Anion Gap BUN Creatinine Estim Creat Clear Calc Estimated GFR Random Glucose Calcium Magnesium Total Bilirubin Direct Bilirubin AST ALT Alkaline Phosphatase Total Protein Albumin Urine Color Urine Appearance Urine pH Ur Specific [place] Urine Protein Urine Glucose (UA) Urine Ketones Urine Blood Urine Nitrite Ur Leukocyte Esterase Urine RBC Urine WBC Ur Squamous Epith Cells Urine Bacteria Urine Test Salicylates Urine Opiates Screen Acetaminophen Ur Barbiturates Screen Ur Phencyclidine Scrn Ur Amphetamines Screen U Benzodiazepines Scrn Urine Cocaine Screen U Marijuana (THC) Screen Ethyl Alcohol COVID-19 ([facility]YA) Negative COVID-19 Clin Com See Note 01/26/21 01/26/21 01/26/21 10:36 10:37 10:37 WBC RBC Hgb Hct MCV MCH MCHC RDW Plt Count MPV Immature Gran % (Auto) Neut % (Auto) Lymph % (Auto) [place] % (Auto) Eos % (Auto) Baso % (Auto) Lymph # (Auto) [place] # (Auto) Eos # (Auto) Baso # (Auto) Abs Immat Gran (auto) Absolute Neuts (auto) Absolute Nucleated RBC Nucleated RBC % (auto) Neutrophils % (Manual) Band Neutrophils % Lymphocytes % (Manual) Monocytes % (Manual) Eosinophils % (Manual) Basophils % (Manual) Abs Neuts (Manual) Lymphocytes # (Manual) Monocytes # (Manual) Eosinophils # (Manual) Basophils # (Manual) Platelet Estimate Plt Morphology Comment RBC Morphology Acanthocytes (Spur) Schistocytes Hold Blue Top Sodium Potassium Chloride Carbon Dioxide Anion Gap BUN Creatinine Estim Creat Clear Calc Estimated GFR Random Glucose Calcium Magnesium Total Bilirubin Direct Bilirubin AST ALT Alkaline Phosphatase Total Protein Albumin Urine Color YELLOW Urine Appearance CLEAR Urine pH 6.0 Ur Specific [place] 1.020 Urine Protein NEG Urine Glucose (UA) NEG Urine Ketones NEG Urine Blood NEG Urine Nitrite NEG Ur Leukocyte Esterase TRACE H Urine RBC 0 Urine WBC 1-4 Ur Squamous Epith Cells 4+ Urine Bacteria TRACE Urine Test NEGATIVE Salicylates Urine Opiates Screen Not Detected Acetaminophen Ur Barbiturates Screen Not Detected Ur Phencyclidine Scrn Not Detected Ur Amphetamines Screen POSITIVE H U Benzodiazepines Scrn POSITIVE H Urine Cocaine Screen Not Detected U Marijuana (THC) Screen POSITIVE H Ethyl Alcohol COVID-19 ([facility]YA) COVID-19 Clin Com 01/26/21 01/26/21 14:06 14:06 WBC RBC Hgb Hct MCV MCH MCHC RDW Plt Count MPV Immature Gran % (Auto) Neut % (Auto) Lymph % (Auto) [place] % (Auto) Eos % (Auto) Baso % (Auto) Lymph # (Auto) [place] # (Auto) Eos # (Auto) Baso # (Auto) Abs Immat Gran (auto) Absolute Neuts (auto) Absolute Nucleated RBC Nucleated RBC % (auto) Neutrophils % (Manual) Band Neutrophils % Lymphocytes % (Manual) Monocytes % (Manual) Eosinophils % (Manual) Basophils % (Manual) Abs Neuts (Manual) Lymphocytes # (Manual) Monocytes # (Manual) Eosinophils # (Manual) Basophils # (Manual) Platelet Estimate Plt Morphology Comment RBC Morphology Acanthocytes (Spur) Schistocytes Hold Blue Top Sodium 140 Potassium 4.3 Chloride 107 Carbon Dioxide 24 Anion Gap 13 BUN 13 D Creatinine 0.83 Estim Creat Clear Calc 98.5 Estimated GFR > 60 Random Glucose 95 Calcium 9.4 Magnesium 2.3 Total Bilirubin 0.3 Direct Bilirubin < 0.2 AST 11 ALT 7 Alkaline Phosphatase 75 Total Protein 6.7 Albumin 4.1 Urine Color Urine Appearance Urine pH Ur Specific [place] Urine Protein Urine Glucose (UA) Urine Ketones Urine Blood Urine Nitrite Ur Leukocyte Esterase Urine RBC Urine WBC Ur Squamous Epith Cells Urine Bacteria Urine Test Salicylates < 5.0 L Urine Opiates Screen Acetaminophen < 1 Ur Barbiturates Screen Ur Phencyclidine Scrn Ur Amphetamines Screen U Benzodiazepines Scrn Urine Cocaine Screen U Marijuana (THC) Screen Ethyl Alcohol < 10 COVID-19 (KENYA) COVID-19 Clin Com 01/26/21 00:00 Urine clean catch - Clean Catch Midstream Urine Culture - Final Imaging Diagnostic Imaging Impressions Chest X-Ray 01/26/21 16:08 IMPRESSION: No evidence for acute disease. DS: Summary Time Spent with Patient Time attestation: Total time spent providing and/or coordinating discharge services: Time spent: Less than 30 minutes
--- NOTE | 2021-01-30 10:54 | PM.PSYDC ---
DS: Providers Provider Date of Service: 01/30/21 Date of admission: 01/27/21 12:58 Date of discharge: 01/30/21 Primary care physician: Rhoda Pina MD Attending physician on discharge: lizbeth DS: Diagnosis Discharge Diagnosis (1) Polysubstance overdose: Status: Acute Problem details: resolved (2) Bipolar 2 disorder: Status: Acute (3) Borderline personality disorder: Status: Acute DS: Medications Discharge Medications Home Medications: Home Medications Medication Instructions Recorded Confirmed albuterol sulfate 2.5 mg INHALATION Q4-6H PRN 12/15/20 01/26/21 fluticasone propionate 50 2 spray INTRANASAL DAILY 12/15/20 01/26/21 mcg/actuation nasal spray,suspension Previous Rx's Medication Instructions Recorded Excedrin Migraine 1 tab PO DAILY PRN 5 Days #5 tab 10/21/20 Vraylar 6 mg PO DAILY 30 Days #30 cap 10/21/20 clonazepam 0.5 mg PO DAILY@1200 PRN 1 Days #2 10/21/20 tab clonazepam 1 mg PO BID PRN 1 Days #2 tab 10/21/20 clonidine HCl 0.1 mg PO TID 1 Days #3 tab 10/21/20 dextroamphetamine-amphetamine 25 mg PO QAM 1 Days #1 cap 10/21/20 gabapentin 200 mg PO BEDTIME 1 Days #1 cap 10/21/20 gabapentin 300 mg PO DAILY 1 Days #1 cap 10/21/20 pantoprazole 40 mg PO DAILY 1 Days #1 tab 10/21/20 sertraline 150 mg PO DAILY 30 Days #45 tab 10/21/20 trazodone 50 mg PO BEDTIME PRN 30 Days #30 10/21/20 tab albuterol sulfate 90 mcg/actuation 2 puff INHALATION Q4-6H PRN 60 01/12/21 aerosol inhaler Days #8.5 g Discharge Plan Discharge Anticipated Discharge Date/Time: 01/30/21 10:35 Patient Disposition: Home Health Service Referrals: siomara ferrell [Other] - 02/17/21 9:00 am maura [Other] - 02/02/21 2:00 pm Rhoda Pina MD [Primary Care Provider] - 02/04/21 9:30 am (VIA PHONE) Discharge Medications: New sertraline 100 mg Tablet 200 mg PO DAILY 30 Days Qty: 60 RF: 0 clonazepam 1 mg Tablet 1 mg PO BID 14 Days Qty: 28 RF: 0 albuterol sulfate [Ventolin HFA] 90 mcg/actuation Hfa Aerosol Inhaler 2 puff inhalation Q4H PRN (Reason: shortness of breath or wheezing) 30 Days RF: 0 clonidine HCl 0.1 mg Tablet 0.1 mg PO TID Qty: 30 RF: 1 gabapentin 300 mg Capsule 300 mg PO DAILY 14 Days Qty: 14 RF: 0 Continued trazodone 50 mg Tablet 50 mg PO BEDTIME PRN (Reason: Insomnia) 30 Days Qty: 30 RF: 0 clonazepam 0.5 mg tablet 0.5 mg PO DAILY@1200 PRN (Reason: Anxiety) 1 Days Qty: 2 RF: 0 pantoprazole 40 mg tablet,delayed release (DR/EC) 40 mg PO DAILY 1 Days Qty: 1 RF: 0 gabapentin 100 mg capsule 200 mg PO BEDTIME 1 Days Qty: 1 RF: 0 Excedrin Migraine 250-250-65 mg Tablet 1 tab PO DAILY PRN (Reason: Headache) 5 Days Qty: 5 RF: 0 dextroamphetamine-amphetamine 25 mg capsule,extended release 24hr 25 mg PO QAM 1 Days Qty: 1 RF: 0 Vraylar 6 mg capsule 6 mg PO DAILY 30 Days Qty: 30 RF: 0 fluticasone propionate 50 mcg/actuation spray,suspension 2 spray intranasal DAILY RF: 0 Discontinued sertraline 100 mg tablet 150 mg PO DAILY 30 Days Qty: 45 RF: 0 clonidine HCl 0.1 mg tablet 0.1 mg PO TID 1 Days Qty: 3 RF: 0 No Action clonazepam 1 mg tablet 1 mg PO BID PRN (Reason: Anxiety) 1 Days Qty: 2 RF: 0 gabapentin 300 mg capsule 300 mg PO DAILY 1 Days Qty: 1 RF: 0 albuterol sulfate 2.5 mg /3 mL (0.083 %) solution for nebulization 2.5 mg inhalation Q4-6H PRN (Reason: Shortness Of Breath Or Wheezing) RF: 0 albuterol sulfate [ProAir HFA] 90 mcg/actuation HFA aerosol inhaler 2 puff inhalation Q4-6H PRN (Reason: shortness of breath or wheezing) 60 Days Qty: 8.5 RF: 2 Discharge Orders: Discharge Order (Routine); Ordered 03/26/21 Ordered By: Hari Jiménez Diet: regular diet Activity on Discharge: As tolerated Stand Alone Forms: Patient Portal Discharge page Care Plan Goals: Continue outpatient treatment at [facility] [place] with ancillary services Health Concerns: Overdose resolved Plan of Treatment: F/U with regular providers Mental Status Exam Mental Status Exam Patient Appearance: Well Grooomed Patient Orientation: Person, Place, Time and Situation Level of Consciousness: Awake Patient Behavior: Appropriate Mood Description: Calm Affect Description: Withdrawn and Appropriate Patient Cognition Impaired: No Ability to Follow Directions: Good Speech Pattern: Clear Memory Description: Intact Data Data Completed and Pending Completed studies during hospitalization [Text1]: 01/26/21 01/26/21 01/26/21 10:36 10:36 10:36 WBC 11.8 H RBC 5.10 Hgb 15.1 Hct 46.1 MCV 90.4 MCH 29.6 MCHC 32.8 RDW 14.9 Plt Count 522 H MPV 10.4 Immature Gran % (Auto) Cancelled Neut % (Auto) Cancelled Lymph % (Auto) Cancelled [place] % (Auto) Cancelled Eos % (Auto) Cancelled Baso % (Auto) Cancelled Lymph # (Auto) Cancelled [place] # (Auto) Cancelled Eos # (Auto) Cancelled Baso # (Auto) Cancelled Abs Immat Gran (auto) Cancelled Absolute Neuts (auto) Cancelled Absolute Nucleated RBC 0.000 Nucleated RBC % (auto) 0.0 Neutrophils % (Manual) 63 Band Neutrophils % 1 L Lymphocytes % (Manual) 30 Monocytes % (Manual) 2 Eosinophils % (Manual) 3 Basophils % (Manual) 1 Abs Neuts (Manual) 7.6 Lymphocytes # (Manual) 3.5 Monocytes # (Manual) 0.2 Eosinophils # (Manual) 0.4 Basophils # (Manual) 0.1 Platelet Estimate INCREASED Plt Morphology Comment NORMAL RBC Morphology NOTED Acanthocytes (Spur) 2+ (3-5) Schistocytes 2+ (3-5) Hold Blue Top SEE NOTE Sodium Potassium Chloride Carbon Dioxide Anion Gap BUN Creatinine Estim Creat Clear Calc Estimated GFR Random Glucose Calcium Magnesium Total Bilirubin Direct Bilirubin AST ALT Alkaline Phosphatase Total Protein Albumin Urine Color Urine Appearance Urine pH Ur Specific [place] Urine Protein Urine Glucose (UA) Urine Ketones Urine Blood Urine Nitrite Ur Leukocyte Esterase Urine RBC Urine WBC Ur Squamous Epith Cells Urine Bacteria Urine Test Salicylates Urine Opiates Screen Acetaminophen Ur Barbiturates Screen Ur Phencyclidine Scrn Ur Amphetamines Screen U Benzodiazepines Scrn Urine Cocaine Screen U Marijuana (THC) Screen Ethyl Alcohol COVID-19 (KENYA) Negative COVID-19 Clin Com See Note 01/26/21 01/26/21 01/26/21 10:36 10:37 10:37 WBC RBC Hgb Hct MCV MCH MCHC RDW Plt Count MPV Immature Gran % (Auto) Neut % (Auto) Lymph % (Auto) [place] % (Auto) Eos % (Auto) Baso % (Auto) Lymph # (Auto) [place] # (Auto) Eos # (Auto) Baso # (Auto) Abs Immat Gran (auto) Absolute Neuts (auto) Absolute Nucleated RBC Nucleated RBC % (auto) Neutrophils % (Manual) Band Neutrophils % Lymphocytes % (Manual) Monocytes % (Manual) Eosinophils % (Manual) Basophils % (Manual) Abs Neuts (Manual) Lymphocytes # (Manual) Monocytes # (Manual) Eosinophils # (Manual) Basophils # (Manual) Platelet Estimate Plt Morphology Comment RBC Morphology Acanthocytes (Spur) Schistocytes Hold Blue Top Sodium Potassium Chloride Carbon Dioxide Anion Gap BUN Creatinine Estim Creat Clear Calc Estimated GFR Random Glucose Calcium Magnesium Total Bilirubin Direct Bilirubin AST ALT Alkaline Phosphatase Total Protein Albumin Urine Color YELLOW Urine Appearance CLEAR Urine pH 6.0 Ur Specific [place] 1.020 Urine Protein NEG Urine Glucose (UA) NEG Urine Ketones NEG Urine Blood NEG Urine Nitrite NEG Ur Leukocyte Esterase TRACE H Urine RBC 0 Urine WBC 1-4 Ur Squamous Epith Cells 4+ Urine Bacteria TRACE Urine Test NEGATIVE Salicylates Urine Opiates Screen Not Detected Acetaminophen Ur Barbiturates Screen Not Detected Ur Phencyclidine Scrn Not Detected Ur Amphetamines Screen POSITIVE H U Benzodiazepines Scrn POSITIVE H Urine Cocaine Screen Not Detected U Marijuana (THC) Screen POSITIVE H Ethyl Alcohol COVID-19 (KENYA) COVID-19 Function Space Com 01/26/21 01/26/21 14:06 14:06 WBC RBC Hgb Hct MCV MCH MCHC RDW Plt Count MPV Immature Gran % (Auto) Neut % (Auto) Lymph % (Auto) [place] % (Auto) Eos % (Auto) Baso % (Auto) Lymph # (Auto) [place] # (Auto) Eos # (Auto) Baso # (Auto) Abs Immat Gran (auto) Absolute Neuts (auto) Absolute Nucleated RBC Nucleated RBC % (auto) Neutrophils % (Manual) Band Neutrophils % Lymphocytes % (Manual) Monocytes % (Manual) Eosinophils % (Manual) Basophils % (Manual) Abs Neuts (Manual) Lymphocytes # (Manual) Monocytes # (Manual) Eosinophils # (Manual) Basophils # (Manual) Platelet Estimate Plt Morphology Comment RBC Morphology Acanthocytes (Spur) Schistocytes Hold Blue Top Sodium 140 Potassium 4.3 Chloride 107 Carbon Dioxide 24 Anion Gap 13 BUN 13 D Creatinine 0.83 Estim Creat Clear Calc 98.5 Estimated GFR > 60 Random Glucose 95 Calcium 9.4 Magnesium 2.3 Total Bilirubin 0.3 Direct Bilirubin < 0.2 AST 11 ALT 7 Alkaline Phosphatase 75 Total Protein 6.7 Albumin 4.1 Urine Color Urine Appearance Urine pH Ur Specific [place] Urine Protein Urine Glucose (UA) Urine Ketones Urine Blood Urine Nitrite Ur Leukocyte Esterase Urine RBC Urine WBC Ur Squamous Epith Cells Urine Bacteria Urine Test Salicylates < 5.0 L Urine Opiates Screen Acetaminophen < 1 Ur Barbiturates Screen Ur Phencyclidine Scrn Ur Amphetamines Screen U Benzodiazepines Scrn Urine Cocaine Screen U Marijuana (THC) Screen Ethyl Alcohol < 10 COVID-19 (KENYA) COVID-19 Clin Com 01/26/21 00:00 Urine clean catch - Clean Catch Midstream Urine Culture - Final Imaging Diagnostic Imaging Impressions Chest X-Ray 01/26/21 16:08 IMPRESSION: No evidence for acute disease. DS: Summary Hospital Course Hospital Course: The patient was admitted into the unit after an impulsive overdose of medications that she had from a previous prescriber that her [facility] were not aware after conflicts with ex-partner. While in the unit, she was able to contract for safety, she agreed to increase Zoloft up to 200 mg to target depression. She attended to groups, she was safe and she signed a 3 day notice letter. Coordination of care was done and she agreed to be discharged to the community with ancillary services Time spent discussing smoking cessation with patient: more than 10 minutes Status at Discharge Functional status at discharge: independent ambulation Overall status at discharge: patient is back to baseline Time Spent with Patient Time attestation: Total time spent providing and/or coordinating discharge services: Time spent: Less than 30 minutes
== END 2021-01-30 11:35 | disposition home health service (06) | DRG 885 ==
LOC: HO.ED 01-27 08:29 → HO.PM5 01-27 13:10
PROVIDERS: Physician Assistant; Admitting Provider Psychiatry & Neurology Psychiatry; Emergency Provider Emergency Medicine; PCP Student in an Organized Health Care Education/Training Program; Visit Provider Psychiatry & Neurology Psychiatry
DX: F31.81 Bipolar II disorder (principal); R45.851 Suicidal ideations; F60.3 Borderline personality disorder; T50.912A Poisoning by multiple unspecified drugs, medicaments and biological substances, intentional self-harm, initial encounter; Y92.9 Unspecified place or not applicable; Z20.822 Contact with and (suspected) exposure to COVID-19; F17.210 Nicotine dependence, cigarettes, uncomplicated; Z71.6 Tobacco abuse counseling; Z79.899 Other long term (current) drug therapy
CPT/HCPCS: 36415; 71045; 80048; 80076; 80143; 80179; 80307; 80320; 81001; 81003; 81025; 83735; 85007; 85027; 87086; 87635; 93005; 96360; 96361; 99222; 99232; 99238; 99285; 99291

== ENCOUNTER 2021-02-17 12:02 | Inpatient (IN) | payer MEDICARE, MEDICAID, SELFPAY ==
[2021-02-17] VITALS (9 sets, daily range): BP systolic 74–131; BP diastolic 35–83; PULSE 53–94; RESP 14–20; TEMP 36.6–37.3; O2SAT 90–99; BMI 29.6; BMI 31.8
--- NOTE | 2021-02-17 12:33 | ECG_ITS ---
Test Reason : OD Blood Pressure : / mmHG Vent. Rate : 069 BPM Atrial Rate : 069 BPM P-R Int : 146 ms QRS Dur : 082 ms QT Int : 382 ms P-R-T Axes : 045 027 026 degrees QTc Int : 409 ms Normal sinus rhythm Normal ECG When compared with ECG of 26-JAN-2021 15:27, No significant change was found Referred By: Lg Low Electronically Signed By:SARAH GARCIA
--- NOTE | 2021-02-17 12:33 | ED.PSYCH ---
HPI - Psych General Chief Complaint: Psychiatric Symptoms Stated Complaint: crisis - overdose Time Seen by Provider: 02/17/21 12:32 Source: EMS Mode of arrival: EMS Limitations: no limitations History of Present Illness HPI Narrative: 36-year-old female who is very familiar to this facility secondary to multiple psychiatric visits as well as multiple overdoses In addition to this she has a history of anxiety disorder, depression, bipolar disorder, borderline personality disorder, migraine headaches, PTSD and surgical history of total splenectomy in addition to other history as noted below she presents via EMS from home with complaint of overdose on her medications States she was feeling depressed and was trying to ?numb herself? and in order to this she took a handful of her medication including clonazepam, trazodone clonidine. She denies drinking alcohol today Admits to occasional marijuana use She denies taking any anti histamines, acetaminophen or salicylate. States she only took the medications that she is prescribed but more than her prescribed. She otherwise denies any recent illness. This occurred approximately 5 hours prior to arrival. Duration: constant History of same: Yes Relieving factors: none Exacerbating factors: none Associated psychiatric symptoms: none Associated symptoms: denies other symptoms Treatments prior to arrival: none If self harm: admits thoughts of self harm, has acted on plan and intentional overdose Related Data Home Medications Medication Instructions Recorded Confirmed budesonide [Pulmicort Flexhaler] 1 inh INHALATION BID 02/17/21 clonazepam 1 mg PO BID 02/17/21 02/17/21 clonidine HCl 0.1 mg PO TID 02/17/21 02/17/21 sumatriptan succinate 50 mg PO DAILY MRX1 02/17/21 02/17/21 Previous Rx's Medication Instructions Recorded Vraylar 6 mg PO DAILY 30 Days #30 cap 10/21/20 clonazepam 0.5 mg PO DAILY@1200 PRN 1 Days #2 10/21/20 tab dextroamphetamine-amphetamine 25 mg PO QAM 1 Days #1 cap 10/21/20 gabapentin 200 mg PO BEDTIME 1 Days #1 cap 10/21/20 gabapentin 300 mg PO DAILY 1 Days #1 cap 10/21/20 pantoprazole 40 mg PO DAILY 1 Days #1 tab 10/21/20 trazodone 50 mg PO BEDTIME PRN 30 Days #30 10/21/20 tab albuterol sulfate [Ventolin HFA] 2 puff INHALATION Q4H PRN 30 Days 01/30/21 g sertraline 200 mg PO DAILY 30 Days #60 tab 01/30/21 Allergies Allergy/AdvReac Type Severity Reaction Status Date / Time SEASONAL ALLERGIES Allergy Intermediate RUNNY NOSE Uncoded 12/10/20 09:58 WATERY EYES Review of Systems Review of Systems: Constitutional: No Weight loss, No Fever, No Chills, No Night Sweats, No Fatigue, No Malaise ENT/Mouth: No Hearing loss, No Ear Pain, No Nasal Congestion, No Sinus Pain, No Hoarseness, No sore throat, No Rhinorrhea, No Swallowing Difficulty Eyes: No Eye Pain, No Swelling, No Redness, No Foreign Body, No Discharge, No Vision Changes Cardiovascular: No Chest Pain, No SOB, No Dyspnea on Exertion, No Orthopnea, No Edema, No Palpitations Respiratory: No Cough, No Sputum, No Wheezing, No Smoke Exposure, No Dyspnea Gastrointestinal: No Nausea, No Vomiting, No Diarrhea, No Constipation, No abdominal Pain, No Hematochezia, No Melena Genitourinary: No Dysuria, No Urinary Frequency, No Hematuria, No Urinary Incontinence, No Urgency, No Flank Pain, No Urinary Flow Changes, No Hesitancy Musculoskeletal: No joint pain, No Myalgias, No Joint Swelling Skin: No Skin Lesions, No rash Neuro: No Weakness, No Numbness, No Paresthesias, No Loss of Consciousness, No Dizziness, No Headache Psych: As noted per HPI Heme/Lymph: No Bruising, No Bleeding,No Lymphadenopathy Endocrine: No Polyuria, No Polydipsia, No Temperature Intolerance [facility] Past Medical History Medical History Anemia Anxiety Asthma B12 deficiency Bipolar disorder, unspecified Borderline personality disorder Bronchitis Cervical cancer COPD (chronic obstructive pulmonary disease) Depression Depression Migraines Polysubstance overdose Posttraumatic stress disorder Smoker Surgical History History of total splenectomy Social History Social History Household Members: Significant Other and Children Housing: House Alcohol intake: never Smoking Status: Current every day smoker Tobacco Type: Cigarette Packs Per Day: 1 Cigarettes Per Day: 20.0 Years Smoked: 20 years Second Hand Smoke Exposure: No Use of substances other than those prescribed or required for medical reasons: No Substance Use Type: Marijuana Advance Directives: No Advance Directives Information Provided: Yes service: No 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 Sexual orientation: Straight/Heterosexual Physical Exam Vital Signs: Vital Signs: Last Vital Signs Temp 99.1 F 02/17/21 21:00 Pulse 53 02/17/21 21:29 Resp 14 02/17/21 21:29 BP 94/53 L 02/17/21 21:29 Pulse Ox 97 02/17/21 21:29 Body Mass Index 31.8 Reviewed Const: General: cooperative and lethargic; No acute distress Nutritional Appearance: overweight Orientation/consciousness: patient oriented x3 and lethargic HENMT: Head: Yes normal to inspection Ears: hearing grossly normal bilaterally Eyes: General: appearance normal, both eyes and all related structures Visual Thayer: normal visual thayer by confrontation Neck: Neck: Yes normal visual inspection, No positive Brudzinski's sign, No positive Kernig's sign and No tender Thyroid: Thyroid normal Chest: Chest palpation & inspection: normal inspection of the chest Resp: Effort & Inspection: normal respiratory effort Auscultation: clear to auscultation bilaterally Cardio: Jugular venous distension: no JVD Rhythm: regular rhythm Heart sounds: S1 normal heart sound present and S2 normal heart sound present GI: Inspection: Yes normal to inspection Palpation (GI): Soft to palpation Percussion: Yes normal to percussion Auscultation: normal bowel sounds : General: Yes no CVA tenderness Back/Spine/Pelvis: Back: no CVA tenderness Skin: General skin exam: no rashes or lesions noted Neuro: General: patient oriented x3 Extrem: General: Yes normal to inspection Course Reevaluation(s) Reevaluation #1: Toxicology workup, likely requiring medical follow-up by psychiatric input. She is alert and oriented x3 she is somewhat lethargic, she is hypotensive upon my evaluation . She had a blood pressure that was documented upon arrival that was normal range however I believe this was in the neck or blood pressure. Will consult poison Control. She is very easy to arouse she is managing her airway she is alert and oriented x3 Her story is inconsistent but does states that she took at 5 hours ago however due to inconsistency will go ahead and give her an activated charcoal. Reevaluation #2: She has received a L of fluids and remains alert and oriented x3 laying in recumbent position easy to arouse. She is hypertensive otherwise vitals are stable. Initial set of lab work is unrevealing EKG nondiagnostic Case discussed with poison control recommendation for supportive care, monitoring of EKG for QT/QTC prolongation Will give her additional L of fluid will continue monitor plan for repeat labs at 17:30. Reevaluation #3: Repeat labs no significant change. Remains hypotensive and lethargic. Plan for admission to intermediate care versus intensive care unit. Page placed. Additional Reevaluation(s): 1929 Case discussed with hospitalist given the hypertension would defer at this time further monitoring in the ED and also discussed with ICU. Consultations Consultation #1: [address] bello [facility] manager accepted the care to his service. MDM - Psych Differential Diagnosis Differential diagnosis: Likely acute psychosis, homicidal ideation, suicidal ideation, bipolar disorder, depression, drug-induced psychotic disorder, acute anxiety, substance abuse, overdose and mood disorder Medical Records Attestation: I reviewed the patient's medical records. Lab Data Attestation: I reviewed the patient's lab results. Result diagrams: 02/17/21 14:33 02/17/21 17:50 Labs: Lab Results 02/17/21 02/17/21 02/17/21 Range/Units 14:33 14:33 14:33 WBC 13.2 H (4.8-10.8) X10*3/uL RBC 4.39 (4.20-5.50) X10*6/uL Hgb 13.2 (12.0-16.0) g/dl Hct 39.2 (37-47) % MCV 89.3 (80-98) fL MCH 30.1 (27.0-33.0) pg MCHC 33.7 (31.0-35.0) g/dl RDW 15.4 (11.0-16.0) % Plt Count 483 H (160-400) X10*3/uL MPV 9.8 (9.4-12.3) fL Immature Gran % (Auto) 0.3 (0.0-0.4) % Neut % (Auto) 53.2 (45-73) % Lymph % (Auto) 36.0 (20-40) % [place] % (Auto) 7.9 (2-11) % Eos % (Auto) 1.8 (0-4) % Baso % (Auto) 0.8 (0-2) % Lymph # (Auto) 4.7 (1.2-4.9) X10*3/uL [place] # (Auto) 1.0 (0.1-1.2) X10*3/uL Eos # (Auto) 0.2 (0.0-0.4) X10*3/uL Baso # (Auto) 0.1 (0.0-0.2) X10*3/uL Abs Immat Gran (auto) 0.04 H (0.00-0.03) X10*3/uL Absolute Neuts (auto) 7.0 (2.0-8.3) X10*3/uL Absolute Nucleated RBC 0.000 (0.0-0.012) X10*3/uL Nucleated RBC % (auto) 0.0 (0.0-0.2) /100WBC PT 12.1 (10.8-13.0) SEC INR 1.0 (0.9-1.1) APTT 36.1 (24.1-38.0) SEC Sodium 139 (135-145) mmol/L Potassium 4.6 (3.3-5.1) mmol/L Chloride 105 (96-108) mmol/L Carbon Dioxide 25 (22-29) mmol/L Anion Gap 14 (12-20) BUN 10 (9-16) mg/dL Creatinine 0.76 (0.5-1.4) mg/dL Estim Creat Clear Calc 102.5 Estimated GFR > 60 Random Glucose 112 (60-115) mg/dL Calcium 9.8 (8.4-10.2) mg/dL Phosphorus 4.8 H (2.7-4.5) mg/dL Magnesium 2.4 (1.6-2.6) mg/dL Total Bilirubin 0.3 (0.0-1.0) mg/dL AST 35 H D (5-31) U/L ALT 50 H (0-31) U/L Alkaline Phosphatase 78 (39-117) U/L Total Protein 6.6 (6.5-8.0) g/dL Albumin 4.0 (3.5-5.0) g/dL Urine Color Urine Appearance Urine pH (5.0-8.0) Ur Specific [place] (1.005-1.025) Urine Protein (NEG-TRACE) MG/DL Urine Glucose (UA) (NEG) MG/DL Urine Ketones (NEG) MG/DL Urine Blood (NEG) Urine Nitrite (NEG) Ur Leukocyte Esterase (NEG) Urine RBC (0) /HPF Urine WBC (0-4) /HPF Ur Squamous Epith Cells /LPF Urine Bacteria /LPF Urine Test (NEGATIVE) Salicylates < 5.0 L (15-30) mg/dL Urine Opiates Screen (Not Detect) Acetaminophen < 1 (<30) mcg/mL Ur Barbiturates Screen (Not Detect) Ur Phencyclidine Scrn (Not Detect) Ur Amphetamines Screen (Not Detect) U Benzodiazepines Scrn (Not Detect) Urine Cocaine Screen (Not Detect) U Marijuana (THC) Screen (Not Detect) Ethyl Alcohol mg/dL COVID-19 (KENYA) (Negative) COVID-19 Clin Com 02/17/21 02/17/21 02/17/21 Range/Units 14:33 14:33 15:26 WBC (4.8-10.8) X10*3/uL RBC (4.20-5.50) X10*6/uL Hgb (12.0-16.0) g/dl Hct (37-47) % MCV (80-98) fL MCH (27.0-33.0) pg MCHC (31.0-35.0) g/dl RDW (11.0-16.0) % Plt Count (160-400) X10*3/uL MPV (9.4-12.3) fL Immature Gran % (Auto) (0.0-0.4) % Neut % (Auto) (45-73) % Lymph % (Auto) (20-40) % [place] % (Auto) (2-11) % Eos % (Auto) (0-4) % Baso % (Auto) (0-2) % Lymph # (Auto) (1.2-4.9) X10*3/uL [place] # (Auto) (0.1-1.2) X10*3/uL Eos # (Auto) (0.0-0.4) X10*3/uL Baso # (Auto) (0.0-0.2) X10*3/uL Abs Immat Gran (auto) (0.00-0.03) X10*3/uL Absolute Neuts (auto) (2.0-8.3) X10*3/uL Absolute Nucleated RBC (0.0-0.012) X10*3/uL Nucleated RBC % (auto) (0.0-0.2) /100WBC PT (10.8-13.0) SEC INR (0.9-1.1) APTT (24.1-38.0) SEC Sodium (135-145) mmol/L Potassium (3.3-5.1) mmol/L Chloride (96-108) mmol/L Carbon Dioxide (22-29) mmol/L Anion Gap (12-20) BUN (9-16) mg/dL Creatinine (0.5-1.4) mg/dL Estim Creat Clear Calc Estimated GFR Random Glucose (60-115) mg/dL Calcium (8.4-10.2) mg/dL Phosphorus (2.7-4.5) mg/dL Magnesium (1.6-2.6) mg/dL Total Bilirubin (0.0-1.0) mg/dL AST (5-31) U/L ALT (0-31) U/L Alkaline Phosphatase (39-117) U/L Total Protein (6.5-8.0) g/dL Albumin (3.5-5.0) g/dL Urine Color YELLOW Urine Appearance CLEAR Urine pH 6.0 (5.0-8.0) Ur Specific [place] 1.025 (1.005-1.025) Urine Protein NEG (NEG-TRACE) MG/DL Urine Glucose (UA) NEG (NEG) MG/DL Urine Ketones NEG (NEG) MG/DL Urine Blood NEG (NEG) Urine Nitrite NEG (NEG) Ur Leukocyte Esterase NEG (NEG) Urine RBC 0 (0) /HPF Urine WBC 0 (0-4) /HPF Ur Squamous Epith Cells 2+ /LPF Urine Bacteria TRACE /LPF Urine Test (NEGATIVE) Salicylates (15-30) mg/dL Urine Opiates Screen (Not Detect) Acetaminophen (<30) mcg/mL Ur Barbiturates Screen (Not Detect) Ur Phencyclidine Scrn (Not Detect) Ur Amphetamines Screen (Not Detect) U Benzodiazepines Scrn (Not Detect) Urine Cocaine Screen (Not Detect) U Marijuana (THC) Screen (Not Detect) Ethyl Alcohol < 10 mg/dL COVID-19 (KENYA) Negative (Negative) COVID-19 Clin Com See Note 02/17/21 02/17/21 02/17/21 Range/Units 15:26 15:26 17:50 WBC (4.8-10.8) X10*3/uL RBC (4.20-5.50) X10*6/uL Hgb (12.0-16.0) g/dl Hct (37-47) % MCV (80-98) fL MCH (27.0-33.0) pg MCHC (31.0-35.0) g/dl RDW (11.0-16.0) % Plt Count (160-400) X10*3/uL MPV (9.4-12.3) fL Immature Gran % (Auto) (0.0-0.4) % Neut % (Auto) (45-73) % Lymph % (Auto) (20-40) % [place] % (Auto) (2-11) % Eos % (Auto) (0-4) % Baso % (Auto) (0-2) % Lymph # (Auto) (1.2-4.9) X10*3/uL [place] # (Auto) (0.1-1.2) X10*3/uL Eos # (Auto) (0.0-0.4) X10*3/uL Baso # (Auto) (0.0-0.2) X10*3/uL Abs Immat Gran (auto) (0.00-0.03) X10*3/uL Absolute Neuts (auto) (2.0-8.3) X10*3/uL Absolute Nucleated RBC (0.0-0.012) X10*3/uL Nucleated RBC % (auto) (0.0-0.2) /100WBC PT 12.4 (10.8-13.0) SEC INR 1.0 (0.9-1.1) APTT 34.9 (24.1-38.0) SEC Sodium (135-145) mmol/L Potassium (3.3-5.1) mmol/L Chloride (96-108) mmol/L Carbon Dioxide (22-29) mmol/L Anion Gap (12-20) BUN (9-16) mg/dL Creatinine (0.5-1.4) mg/dL Estim Creat Clear Calc Estimated GFR Random Glucose (60-115) mg/dL Calcium (8.4-10.2) mg/dL Phosphorus (2.7-4.5) mg/dL Magnesium (1.6-2.6) mg/dL Total Bilirubin (0.0-1.0) mg/dL AST (5-31) U/L ALT (0-31) U/L Alkaline Phosphatase (39-117) U/L Total Protein (6.5-8.0) g/dL Albumin (3.5-5.0) g/dL Urine Color Urine Appearance Urine pH (5.0-8.0) Ur Specific [place] (1.005-1.025) Urine Protein (NEG-TRACE) MG/DL Urine Glucose (UA) (NEG) MG/DL Urine Ketones (NEG) MG/DL Urine Blood (NEG) Urine Nitrite (NEG) Ur Leukocyte Esterase (NEG) Urine RBC (0) /HPF Urine WBC (0-4) /HPF Ur Squamous Epith Cells /LPF Urine Bacteria /LPF Urine Test NEGATIVE (NEGATIVE) Salicylates (15-30) mg/dL Urine Opiates Screen Not Detected (Not Detect) Acetaminophen (<30) mcg/mL Ur Barbiturates Screen Not Detected (Not Detect) Ur Phencyclidine Scrn Not Detected (Not Detect) Ur Amphetamines Screen POSITIVE H (Not Detect) U Benzodiazepines Scrn POSITIVE H (Not Detect) Urine Cocaine Screen Not Detected (Not Detect) U Marijuana (THC) Screen POSITIVE H (Not Detect) Ethyl Alcohol mg/dL COVID-19 (KENYA) (Negative) COVID-19 Clin Com 02/17/21 Range/Units 17:50 WBC (4.8-10.8) X10*3/uL RBC (4.20-5.50) X10*6/uL Hgb (12.0-16.0) g/dl Hct (37-47) % MCV (80-98) fL MCH (27.0-33.0) pg MCHC (31.0-35.0) g/dl RDW (11.0-16.0) % Plt Count (160-400) X10*3/uL MPV (9.4-12.3) fL Immature Gran % (Auto) (0.0-0.4) % Neut % (Auto) (45-73) % Lymph % (Auto) (20-40) % [place] % (Auto) (2-11) % Eos % (Auto) (0-4) % Baso % (Auto) (0-2) % Lymph # (Auto) (1.2-4.9) X10*3/uL [place] # (Auto) (0.1-1.2) X10*3/uL Eos # (Auto) (0.0-0.4) X10*3/uL Baso # (Auto) (0.0-0.2) X10*3/uL Abs Immat Gran (auto) (0.00-0.03) X10*3/uL Absolute Neuts (auto) (2.0-8.3) X10*3/uL Absolute Nucleated RBC (0.0-0.012) X10*3/uL Nucleated RBC % (auto) (0.0-0.2) /100WBC PT (10.8-13.0) SEC INR (0.9-1.1) APTT (24.1-38.0) SEC Sodium 139 (135-145) mmol/L Potassium 4.4 (3.3-5.1) mmol/L Chloride 113 H (96-108) mmol/L Carbon Dioxide 20 L (22-29) mmol/L Anion Gap 10 L (12-20) BUN 9 (9-16) mg/dL Creatinine 0.67 (0.5-1.4) mg/dL Estim Creat Clear Calc 116.3 Estimated GFR > 60 Random Glucose 119 H (60-115) mg/dL Calcium 7.7 L D (8.4-10.2) mg/dL Phosphorus (2.7-4.5) mg/dL Magnesium (1.6-2.6) mg/dL Total Bilirubin 0.3 (0.0-1.0) mg/dL AST 26 (5-31) U/L ALT 39 H (0-31) U/L Alkaline Phosphatase 63 (39-117) U/L Total Protein 5.2 L D (6.5-8.0) g/dL Albumin 3.2 L (3.5-5.0) g/dL Urine Color Urine Appearance Urine pH (5.0-8.0) Ur Specific [place] (1.005-1.025) Urine Protein (NEG-TRACE) MG/DL Urine Glucose (UA) (NEG) MG/DL Urine Ketones (NEG) MG/DL Urine Blood (NEG) Urine Nitrite (NEG) Ur Leukocyte Esterase (NEG) Urine RBC (0) /HPF Urine WBC (0-4) /HPF Ur Squamous Epith Cells /LPF Urine Bacteria /LPF Urine Test (NEGATIVE) Salicylates < 5.0 L (15-30) mg/dL Urine Opiates Screen (Not Detect) Acetaminophen < 1 (<30) mcg/mL Ur Barbiturates Screen (Not Detect) Ur Phencyclidine Scrn (Not Detect) Ur Amphetamines Screen (Not Detect) U Benzodiazepines Scrn (Not Detect) Urine Cocaine Screen (Not Detect) U Marijuana (THC) Screen (Not Detect) Ethyl Alcohol mg/dL COVID-19 ([facility]) (Negative) COVID-19 Clin Com ECG Data Interpretation: EKG 1. 15:19 Sinus tachycardia Rate 113 SD interval 140 QTC/QTC 326 or 447 When compared to January 26 2021 no significant change was found EKG 2. 1738 Sinus bradycardia Rate 57 SD interval 144 QT/QTC 450/ 445 When compared to EKG previously has decreased Critical Care Time Critical Care Time Critical Care Time: Yes Total Critical Care Time: 110 Attestation: Multiple visits to bedside for monitoring of mentation, airway, hemodynamics stability. Consultation with multiple specialties for coordination of care. Discharge Plan Discharge Clinical Impression: Suicidal ideation, Depression, Suicide attempt by multiple drug overdose Patient Disposition: Admitted As Inpatient
[2021-02-17] MEDS: 0.9 % Sodium Chloride 1,000 ML 999 ML IV ×3 (14:35→17:08)
[2021-02-17] MEDS: Activated charcoaL 50 GM/240 ML ORAL.SUSP PO (14:36)
[2021-02-17 14:45] LABS: MANUAL DIFF FLAG NO
[2021-02-17 14:47] LABS: Basophils Absolute Auto 0.1 X10*3/uL (0.0-0.2); Basophils Percent Auto 0.8 % (0-2); Eosinophils Absolute Auto 0.2 X10*3/uL (0.0-0.4); Eosinophils Percent Auto 1.8 % (0-4); Hematocrit 39.2 % (37-47); Hemoglobin 13.2 g/dl (12.0-16.0); Imm Gran Abs Auto 0.04 X10*3/uL (0.00-0.03); Imm Gran Pct Auto 0.3 % (0.0-0.4); Lymphocytes Absolute Auto 4.7 X10*3/uL (1.2-4.9); Mean Corpuscular HGB Conc 33.7 g/dl (31.0-35.0); Mean Corpuscular Hemoglobin 30.1 pg (27.0-33.0); Mean Corpuscular Volume 89.3 fL (80-98); Mean Platelet Volume 9.8 fL (9.4-12.3); Monocytes Percent Auto 7.9 % (2-11); Neutrophils Percent Auto 53.2 % (45-73); Platelet Count 483 X10*3/uL (160-400); Red Blood Count 4.39 X10*6/uL (4.20-5.50); Red Cell Distribution Width 15.4 % (11.0-16.0); White Blood Count 13.2 X10*3/uL (4.8-10.8)
--- NOTE | 2021-02-17 14:55 | PC.NURSE ---
poison control was called ( ) by this rn spoke with tamara. poison control states : supportive care, repeat ekg now and then every 2-4hrs, add labs (magnesium, phosphate and calcium), admit to monitored bed if pt is drowsy. bruna ([facility]) and dacia primary care rn for 3-11pm aware.
[2021-02-17 14:57] LABS: Prothrombin Time 12.1 SEC (10.8-13.0)
[2021-02-17 15:00] LABS: Partial Thromboplastin Time 36.1 SEC (24.1-38.0)
[2021-02-17 15:03] LABS: COVID-19 Test Negative (Negative)
[2021-02-17 15:06] LABS: Ethanol < 10 mg/dL
[2021-02-17 15:09] LABS: Acetaminophen LAB < 1 mcg/mL (<30); Alanine Aminotransferase 50 U/L (0-31); Alkaline Phosphatase 78 U/L (39-117); Anion Gap 14 (12-20); Aspartate Amino Transferase 35 U/L (5-31); Bilirubin Total 0.3 mg/dL (0.0-1.0); Blood Urea Nitrogen 10 mg/dL (9-16); Calcium 9.8 mg/dL (8.4-10.2); Carbon Dioxide 25 mmol/L (22-29); Chloride 105 mmol/L (96-108); Creatinine Clr Calc Pharmacy 102.5; Estimated Glomerular Filt Rate > 60; Glucose Random 112 mg/dL (60-115); Potassium 4.6 mmol/L (3.3-5.1); Salicylate < 5.0 mg/dL (15-30); Sodium 139 mmol/L (135-145); Total Protein 6.6 g/dL (6.5-8.0)
[2021-02-17 15:37] LABS: Glucose Urine UA NEG (NEG); Leukocyte Esterase Urine NEG (NEG); Nitrite Urine NEG (NEG); Specific Gravity - Urine 1.025 (1.005-1.025); Urine Blood NEG (NEG); Urine Ketones NEG (NEG); Urine Protein NEG (NEG-TRACE)
[2021-02-17 15:39] LABS: Appearance Urine CLEAR; Color Urine YELLOW
[2021-02-17 15:41] LABS: UPreg QC Valid YES; Urine Pregnancy NEGATIVE (NEGATIVE)
[2021-02-17 15:57] LABS: Bacteria Urine TRACE /LPF; RBC Urine 0 /HPF (0); Squamous Epithelial Cell Urine 2+ /LPF; WBC Urine 0 /HPF (0-4)
[2021-02-17 16:04] LABS: Amphetamine Screen Urine POSITIVE (Not Detect); Barbiturates, Urine Not Detected (Not Detect); Benzodiazepines Screen Urine POSITIVE (Not Detect); Cannabinoid Screen Urine POSITIVE (Not Detect); Cocaine Screen Urine Not Detected (Not Detect); Opiate Screen Urine Not Detected (Not Detect); Phencyclidine Screen Urine Not Detected (Not Detect)
--- NOTE | 2021-02-17 17:30 | ECG_ITS ---
Test Reason : REPEAT Blood Pressure : / mmHG Vent. Rate : 057 BPM Atrial Rate : 057 BPM P-R Int : 144 ms QRS Dur : 086 ms QT Int : 458 ms P-R-T Axes : 015 049 033 degrees QTc Int : 445 ms Sinus bradycardia Low voltage QRS Borderline ECG No significant changes when compared with the previous EKG of 17 february 2021 Referred By: Lg Low Electronically Signed By:SARAH GARCIA
[2021-02-17 17:40] LABS: Magnesium 2.4 mg/dL (1.6-2.6); Phosphorus 4.8 mg/dL (2.7-4.5)
[2021-02-17 18:07] LABS: Prothrombin Time 12.4 SEC (10.8-13.0)
[2021-02-17 18:09] LABS: Partial Thromboplastin Time 34.9 SEC (24.1-38.0)
[2021-02-17 18:28] LABS: Acetaminophen LAB < 1 mcg/mL (<30); Alanine Aminotransferase 39 U/L (0-31); Albumin Level 3.2 g/dL (3.5-5.0); Alkaline Phosphatase 63 U/L (39-117); Anion Gap 10 (12-20); Aspartate Amino Transferase 26 U/L (5-31); Bilirubin Total 0.3 mg/dL (0.0-1.0); Blood Urea Nitrogen 9 mg/dL (9-16); Carbon Dioxide 20 mmol/L (22-29); Chloride 113 mmol/L (96-108); Creatinine Clr Calc Pharmacy 116.3; Estimated Glomerular Filt Rate > 60; Glucose Random 119 mg/dL (60-115); Potassium 4.4 mmol/L (3.3-5.1); Salicylate < 5.0 mg/dL (15-30); Sodium 139 mmol/L (135-145)
[2021-02-17 18:37] LABS: Calcium 7.7 mg/dL (8.4-10.2); Total Protein 5.2 g/dL (6.5-8.0)
--- NOTE | 2021-02-17 20:46 | PM.CCHP ---
History of Present Illness Date of Service: 02/17/21 Chief Complaint: CLONIDINE OVERDOSE/HYPOTENSION HPI: 36-year-old female with underlying history of anxiety, depression, PTSD, bipolar, GERD, headaches, insomnia comment history multiple overdoses; presents to us after being seen in the emergency room he after reporting and is feeling depressed and that she took a handful of pills containing clonazepam, trazodone, clonidine as she wanted to feel ?numb?. During my interview, she corroborates these and states that she is not suicidal, she simply wanted to get away from her problems which she did not want to disclose to me. Denies suicidal ideation, denies auditory or visual hallucinations, she denies feeling like she wants to harm herself at this point and denies homicidal ideation. In the ER, the patient was noted to be hypotensive, alert and following commands, workup reveals a white count 13.2, platelets of 483, H&H of 13 and 39 respectively. Chemistry revealed no electrolyte abnormalities, normal renal function. Urinalysis negative and negative test. Her toxicology screen reveals less than 5 salicylates, less than 1 mcg of acetaminophen, positive for amphetamines, benzodiazepines, marijuana, negative COVID. Patient was given IV fluids however the patient continued to be hypotensive and this was the reason why she was referred to us. However the patient is otherwise clinically stable, mentating well, renal function is stable. ROS: Denies headache, no visual changes, lightheadedness or dizziness, no history of seizures or strokes, no history of eye or ear problems, no sore throat, cough or sputum production, denies shortness of breath, denies chest pain, palpitations, no coronary disease, pulmonary disease, no hemoptysis, denies any melena, hematochezia, liver or kidney problems, no dysuria, hematuria, no leg swelling, no history of DVT or PE. She has no travel and has not been contact with anybody with COVID. All other review of systems negative. Past Medical History: As above Past Surgical History: total splenectomy Family history: Noncontributory Social History: Lives at home ; Devices: None Smoker: Half pack a day Etoh hx: On and off, denies bingeing Drug hx: Admits to marijuana but no other drugs. CODE STATUS: Full code Allergies: No known drug allergies Home Medications: Please see [facility] rec PHYSICAL EXAM: VS: 94/53, 53, 14, 97% on 2 L nasal cannula. ?General: Alert oriented x3 no acute distress. Speaking full sentences. Speech is well articulated, thought process is coherent. Following all commands. ?Skin: Intact, no lesions, edema, erythema, clubbing or cyanosis. No ulcers. ?HEENT: Head is normocephalic, atraumatic, pupils equal round reactive to light accommodation bilaterally. Extraocular movements appear intact. Buccal mucosa is dry, Neck is supple without lymphadenopathy. ?Cardiac: Clear S1-S2, no murmurs rubs or gallops. ?Pulmonary: Clear to auscultation, no wheezes, rales or rhonchi. ?Abdomen: Protuberant, positive bowel sounds in all 4 quadrants. Soft, nontender, no rebound or guarding. ?Musculoskeletal: Moving all 4 extremities upon request a major joints, there is no crepitus or tenderness. The strength is 5/5 bilaterally and throughout all 4 extremities. Gait not assessed at this point. ?Neurologic: As above, cranial nerves 2-12 are grossly intact. No focal deficits noted. Motor strength as above. ?Vascular: 2+ pulses upper and lower extremities distally. SIGNIFICANT LABORATORY DATA: As above REVIEW OF IMAGES: No images done EKG REVIEW: Sinus bradycardia rate of size 57 beats per minute. No ST elevations, no depressions. ASSESSMENT AND PLAN: 1. Intentional overdose 2. Major depressive disorder 3. Hypotension due to polypharmacy intake NO EVIDENCE OF INFECTION OR SEPSIS 4. Clinical dehydration 5. Cannabis use and abuse 6. Reactive leukocytosis and thrombocytosis 7. Suicidal ideation and attempt 8. Asymptomatic bradycardia (meds, tsh, baseline) Patient will be admitted to ICU, monitor vital signs, I's and O's, at this point the patient has received 3 L of IV fluids, I do not think she needs any more, will monitor her heart rate given the borderline bradycardia check TSH, will hold clonidine, will continue with her other medications. The patient will need a one-to-one sitter, a crisis evaluation. At this point I am not inclined to start her on pressors. Will monitor mental status. Repeat labs in the morning. So far there is no evidence of infection and her hypotension is not due to sepsis. GI PROPHYLAXIS: On oral pantoprazole DVT PROPHYLAXIS: Pneumatic stockings and early ambulation Critical care time used for critical evaluation of this patient, diagnosis, treatment and coordination of care, review her records and documentation TOTAL CRITICAL CARE TIME 90 MIN . Patient's care was discussed in detail with Dr. Gill. He is aware of all the above as well as the plan of care for this patient. [facility] Past Medical History Medical History Anemia Anxiety Asthma B12 deficiency Bipolar disorder, unspecified Borderline personality disorder Bronchitis Cervical cancer COPD (chronic obstructive pulmonary disease) Depression Depression Migraines Polysubstance overdose Posttraumatic stress disorder Smoker Surgical History Surgical History History of total splenectomy Social History Social History Household Members: Spouse and Children Housing: House Do you presently have visiting nurse or other home services: No Alcohol intake: never Smoking Status: Current every day smoker Tobacco Type: Cigarette Packs Per Day: 1.5 Cigarettes Per Day: 30.0 Years Smoked: 20 Smoked in Last 30 Days: Yes Patient Interested in Nicotine Replacement: Yes Patient Given Instructions on How to Stop Smoking: Yes Date Education Initiated: 02/18/21 Second Hand Smoke Exposure: Yes Use of substances other than those prescribed or required for medical reasons: Yes Substance Use Type: Marijuana and Prescription Drugs Substance Use Frequency: Daily Last Used Substance: Just Prior to Admission Currently Displaying Signs/Symptoms of Drug Intoxication Withdrawal: No Any prior treatment program specific to substance use: Yes Have you been hit, kicked, punched, or otherwise hurt by someone within the past year? If so, by whom?: No Do you feel safe in your current relationship?: Yes Is there a partner from a previous relationship who is making you feel unsafe now?: No Are you made to feel afraid or neglected: No Advance Directives: No Advance Directives Information Provided: Yes Do you have thoughts of harming others: None Do you have a plan to hurt others: No Plan Recently lost weight without trying: No service: No Current occupational status: disabled 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 Sexual orientation: Straight/Heterosexual Meds Allergies Allergy/AdvReac Type Severity Reaction Status Date / Time SEASONAL ALLERGIES Allergy Intermediate RUNNY NOSE Uncoded 12/10/20 09:58 WATERY EYES Active Medications: Current Medications Generic Name Dose Route Start Last Admin Trade Name Freq PRN Reason Stop Dose Admin Pharmacy Consult 1 each 02/17/21 18:45 Consult Rx Perform Med Rec MISCELLANE ONCE JOSE Home Medications Medication Instructions Recorded Confirmed Last Taken Type budesonide [Pulmicort Flexhaler] 1 inh INHALATION BID 02/17/21 Unknown History clonazepam 1 mg PO BID 02/17/21 02/17/21 Unknown History clonidine HCl 0.1 mg PO TID 02/17/21 02/17/21 Unknown History sumatriptan succinate 50 mg PO DAILY MRX1 02/17/21 02/17/21 Unknown History Physical Exam Vital Signs: Vital Signs: Last Vital Signs Temp 97.8 F 02/17/21 17:04 Pulse 59 02/17/21 18:59 Resp 16 02/17/21 18:59 BP 79/40 L 02/17/21 18:59 Pulse Ox 96 02/17/21 18:59 Body Mass Index 31.8 Results Labs CBC and Chem 7: 02/18/21 05:27 02/18/21 05:27 Labs: Laboratory Results - last 24 hr 02/17/21 02/17/21 02/17/21 14:33 14:33 14:33 MCV 89.3 MCH 30.1 MCHC 33.7 RDW 15.4 Plt Count 483 H MPV 9.8 Immature Gran % (Auto) 0.3 Neut % (Auto) 53.2 Lymph % (Auto) 36.0 [place] % (Auto) 7.9 Eos % (Auto) 1.8 Baso % (Auto) 0.8 Lymph # (Auto) 4.7 [place] # (Auto) 1.0 Eos # (Auto) 0.2 Baso # (Auto) 0.1 Abs Immat Gran (auto) 0.04 H Absolute Neuts (auto) 7.0 Absolute Nucleated RBC 0.000 Nucleated RBC % (auto) 0.0 PT 12.1 INR 1.0 APTT 36.1 Anion Gap 14 Estim Creat Clear Calc 102.5 Estimated GFR > 60 Random Glucose 112 Calcium 9.8 Phosphorus 4.8 H Magnesium 2.4 Total Bilirubin 0.3 AST 35 H D ALT 50 H Alkaline Phosphatase 78 Total Protein 6.6 Albumin 4.0 Urine Color Urine Appearance Urine pH Ur Specific [place] Urine Protein Urine Glucose (UA) Urine Ketones Urine Blood Urine Nitrite Ur Leukocyte Esterase Urine RBC Urine WBC Ur Squamous Epith Cells Urine Bacteria Urine Test Salicylates < 5.0 L Urine Opiates Screen Acetaminophen < 1 Ur Barbiturates Screen Ur Phencyclidine Scrn Ur Amphetamines Screen U Benzodiazepines Scrn Urine Cocaine Screen U Marijuana (THC) Screen Ethyl Alcohol COVID-19 (KNEYA) COVID-19 Clin Com 02/17/21 02/17/21 02/17/21 14:33 14:33 15:26 MCV MCH MCHC RDW Plt Count MPV Immature Gran % (Auto) Neut % (Auto) Lymph % (Auto) [place] % (Auto) Eos % (Auto) Baso % (Auto) Lymph # (Auto) [place] # (Auto) Eos # (Auto) Baso # (Auto) Abs Immat Gran (auto) Absolute Neuts (auto) Absolute Nucleated RBC Nucleated RBC % (auto) PT INR APTT Anion Gap Estim Creat Clear Calc Estimated GFR Random Glucose Calcium Phosphorus Magnesium Total Bilirubin AST ALT Alkaline Phosphatase Total Protein Albumin Urine Color YELLOW Urine Appearance CLEAR Urine pH 6.0 Ur Specific [place] 1.025 Urine Protein NEG Urine Glucose (UA) NEG Urine Ketones NEG Urine Blood NEG Urine Nitrite NEG Ur Leukocyte Esterase NEG Urine RBC 0 Urine WBC 0 Ur Squamous Epith Cells 2+ Urine Bacteria TRACE Urine Test Salicylates Urine Opiates Screen Acetaminophen Ur Barbiturates Screen Ur Phencyclidine Scrn Ur Amphetamines Screen U Benzodiazepines Scrn Urine Cocaine Screen U Marijuana (THC) Screen Ethyl Alcohol < 10 COVID-19 (KENYA) Negative COVID-19 Clin Com See Note 02/17/21 02/17/21 02/17/21 15:26 15:26 17:50 MCV MCH MCHC RDW Plt Count MPV Immature Gran % (Auto) Neut % (Auto) Lymph % (Auto) [place] % (Auto) Eos % (Auto) Baso % (Auto) Lymph # (Auto) [place] # (Auto) Eos # (Auto) Baso # (Auto) Abs Immat Gran (auto) Absolute Neuts (auto) Absolute Nucleated RBC Nucleated RBC % (auto) PT 12.4 INR 1.0 APTT 34.9 Anion Gap Estim Creat Clear Calc Estimated GFR Random Glucose Calcium Phosphorus Magnesium Total Bilirubin AST ALT Alkaline Phosphatase Total Protein Albumin Urine Color Urine Appearance Urine pH Ur Specific [place] Urine Protein Urine Glucose (UA) Urine Ketones Urine Blood Urine Nitrite Ur Leukocyte Esterase Urine RBC Urine WBC Ur Squamous Epith Cells Urine Bacteria Urine Test NEGATIVE Salicylates Urine Opiates Screen Not Detected Acetaminophen Ur Barbiturates Screen Not Detected Ur Phencyclidine Scrn Not Detected Ur Amphetamines Screen POSITIVE H U Benzodiazepines Scrn POSITIVE H Urine Cocaine Screen Not Detected U Marijuana (THC) Screen POSITIVE H Ethyl Alcohol COVID-19 (KENYA) COVID-19 real trends Com 02/17/21 17:50 MCV MCH MCHC RDW Plt Count MPV Immature Gran % (Auto) Neut % (Auto) Lymph % (Auto) [place] % (Auto) Eos % (Auto) Baso % (Auto) Lymph # (Auto) [place] # (Auto) Eos # (Auto) Baso # (Auto) Abs Immat Gran (auto) Absolute Neuts (auto) Absolute Nucleated RBC Nucleated RBC % (auto) PT INR APTT Anion Gap 10 L Estim Creat Clear Calc 116.3 Estimated GFR > 60 Random Glucose 119 H Calcium 7.7 L D Phosphorus Magnesium Total Bilirubin 0.3 AST 26 ALT 39 H Alkaline Phosphatase 63 Total Protein 5.2 L D Albumin 3.2 L Urine Color Urine Appearance Urine pH Ur Specific [place] Urine Protein Urine Glucose (UA) Urine Ketones Urine Blood Urine Nitrite Ur Leukocyte Esterase Urine RBC Urine WBC Ur Squamous Epith Cells Urine Bacteria Urine Test Salicylates < 5.0 L Urine Opiates Screen Acetaminophen < 1 Ur Barbiturates Screen Ur Phencyclidine Scrn Ur Amphetamines Screen U Benzodiazepines Scrn Urine Cocaine Screen U Marijuana (THC) Screen Ethyl Alcohol COVID-19 (KENYA) COVID-19 real trends Com
[2021-02-18] VITALS (16 sets, daily range): BP systolic 79–117; BP diastolic 32–67; PULSE 43–97; RESP 13–18; TEMP 35.9–37; O2SAT 90–97; BMI 29.6
[2021-02-18] MEDS: 0.9 % Sodium Chloride 1,000 ML 125 ML IVCONT ×2 (02:36→10:15)
[2021-02-18 05:52] LABS: MANUAL DIFF FLAG NO
[2021-02-18 05:57] LABS: Basophils Absolute Auto 0.1 X10*3/uL (0.0-0.2); Basophils Percent Auto 0.7 % (0-2); Eosinophils Absolute Auto 0.5 X10*3/uL (0.0-0.4); Eosinophils Percent Auto 4.3 % (0-4); Hematocrit 38.6 % (37-47); Hemoglobin 12.5 g/dl (12.0-16.0); Imm Gran Abs Auto 0.03 X10*3/uL (0.00-0.03); Imm Gran Pct Auto 0.3 % (0.0-0.4); Lymphocytes Absolute Auto 3.9 X10*3/uL (1.2-4.9); Lymphocytes Percent Auto 32.8 % (20-40); Mean Corpuscular HGB Conc 32.4 g/dl (31.0-35.0); Mean Corpuscular Hemoglobin 29.6 pg (27.0-33.0); Mean Corpuscular Volume 91.5 fL (80-98); Monocytes Absolute Auto 0.9 X10*3/uL (0.1-1.2); Monocytes Percent Auto 7.9 % (2-11); Neutrophils Absolute Auto 6.4 X10*3/uL (2.0-8.3); Platelet Count 478 X10*3/uL (160-400); Red Blood Count 4.22 X10*6/uL (4.20-5.50); Red Cell Distribution Width 15.7 % (11.0-16.0); White Blood Count 11.8 X10*3/uL (4.8-10.8)
[2021-02-18] MEDS: Omeprazole 20 MG CAPSULE.DR PO (05:59)
[2021-02-18 06:33] LABS: Alanine Aminotransferase 34 U/L (0-31); Albumin Level 3.4 g/dL (3.5-5.0); Alkaline Phosphatase 69 U/L (39-117); Anion Gap 8 (12-20); Aspartate Amino Transferase 20 U/L (5-31); Bilirubin Total 0.3 mg/dL (0.0-1.0); Blood Urea Nitrogen 7 mg/dL (9-16); Calcium 8.8 mg/dL (8.4-10.2); Carbon Dioxide 21 mmol/L (22-29); Chloride 114 mmol/L (96-108); Creatinine Clr Calc Pharmacy 119.9; Estimated Glomerular Filt Rate > 60; Glucose Random 105 mg/dL (60-115); Potassium 5.2 mmol/L (3.3-5.1); Sodium 138 mmol/L (135-145); Total Protein 5.5 g/dL (6.5-8.0)
[2021-02-18 06:45] LABS: Thyroid Stimulating Hormone 1.71 uIU/mL (0.32-4.0)
--- NOTE | 2021-02-18 08:10 | ECG_ITS ---
Test Reason : f/u overdose, trend QT Blood Pressure : / mmHG Vent. Rate : 049 BPM Atrial Rate : 049 BPM P-R Int : 142 ms QRS Dur : 080 ms QT Int : 450 ms P-R-T Axes : 058 039 039 degrees QTc Int : 406 ms Sinus bradycardia Low voltage QRS Borderline ECG No significant changes when compared with the previous EKG of 17 february 2021 Referred By: Rodolfo Gill Electronically Signed By:SARAH GARCIA
--- NOTE | 2021-02-18 10:13 | MHC.CM.PN ---
Met with pt to discuss d/c planning: Pt in ICU s/p ingestion of prescriptive medications in an attempt to feel altered; somewhat somnolent at times during assessment: Pt states she resides with a room mate, is independent with all care needs, has no medical equipment but does have daily visits by her [facility] care team. According to pt, [facility] dispenses her daily medications and provides transportation to appointments. Her room mate assists if needed. Pt will be transferred to [facility] for continued care. ? needing a BHN eval prior to d/c. No additional clinical needs anticipated for d/c
--- NOTE | 2021-02-18 10:51 | PM.CCPN ---
Subjective Subjective Date of Service: 02/18/21 Interval History: Ms. Romero was admitted to the ICU last night because of hypotension secondary to a clonidine overdose. The patient is a 36-year-old female with underlying history of anxiety, depression, PTSD, bipolar, borderline personality disorder, GERD, migraine headaches, insomnia, and splenectomy. She has a history of multiple overdoses, very familiar to the ED staff secondary to multiple psychiatric visits as well as multiple overdoses. She was brought in by ambulance to the ED yesterday afternoon after a deliberate overdose. The patient stated that she was feeling depressed and was trying to ?numb herself? and in order to do this she took a handful of her medication including clonazepam, trazodone, and clonidine. She denied drinking alcohol. She admitted to occasional marijuana use. She denied taking any anti histamines, acetaminophen or salicylate. Stated that she only took the medications that she is prescribed but more than her prescribed. During her ICU admission interview, she stated that she was not suicidal, she simply wanted to get away from her problems. She denies feeling that she wants to harm herself. In the ER, the patient was noted to be hypotensive, alert and following commands. WBC was 13.2, platelets of 483, Hb 13, no electrolyte abnormalities, normal renal indices, u/a negative, and HCG negative. Toxicology screen neg for salicylates and acetaminophen, positive for amphetamines, benzodiazepines, marijuana. COVID negative. She was given IV fluids. She was given one dose of activated charcoal. She continued to have a normal mental status and was making urine, but she continued to be hypotensive, and was therefore admitted to ICU for monitoring. Overnite in ICU she was given no vasopressors, only fluids. BP was mostly 90s and she continued to make urine. This morning she?s fully awake and feels fine. Ate breakfast w no problem. See Vital Signs below. HR is in the 40?s, SR, BP in the 100?s. Breathing easy with Sat high 90?s on room air. No JVD, abdomen benign, no edema. LABORATORY DATA: As below. Renal indices still very low. Alb 3.4. TSH 1.7. IMPRESSION: 1. Underlying anxiety, depression, PTSD, bipolar, borderline personality disorder 2. Intentional overdose. The major agent of concern now is the clonidine. 3. Bradycardia w relative hypotension 2? clonidine. Essentially asymptomatic at this point. No suggestion of infection or sepsis. No indication for any treatment at this time. D/C IV fluids. The bradycardia and consequent hypotension will resolve over time. 4. Clinical dehydration. Resolved following resuscitation. Stable for transfer to [facility]. Will sign out to hospitalists. Time: . Physical Exam Vital Signs: Vital Signs: Last Vital Signs Temp 97.6 F 02/18/21 10:00 Pulse 43 L 02/18/21 10:00 Resp 17 02/18/21 10:00 BP 105/63 02/18/21 10:00 Pulse Ox 96 02/18/21 10:00 Body Mass Index 29.6 Objective Data Labs CBC & Chem 7: 02/18/21 05:27 02/18/21 05:27 Labs: Laboratory Results - last 24 hr 02/17/21 02/17/21 02/17/21 14:33 14:33 14:33 WBC 13.2 H RBC 4.39 Hgb 13.2 Hct 39.2 MCV 89.3 MCH 30.1 MCHC 33.7 RDW 15.4 Plt Count 483 H MPV 9.8 Immature Gran % (Auto) 0.3 Neut % (Auto) 53.2 Lymph % (Auto) 36.0 [place] % (Auto) 7.9 Eos % (Auto) 1.8 Baso % (Auto) 0.8 Lymph # (Auto) 4.7 [place] # (Auto) 1.0 Eos # (Auto) 0.2 Baso # (Auto) 0.1 Abs Immat Gran (auto) 0.04 H Absolute Neuts (auto) 7.0 Absolute Nucleated RBC 0.000 Nucleated RBC % (auto) 0.0 PT 12.1 INR 1.0 APTT 36.1 Sodium 139 Potassium 4.6 Chloride 105 Carbon Dioxide 25 Anion Gap 14 BUN 10 Creatinine 0.76 Estim Creat Clear Calc 102.5 Estimated GFR > 60 Random Glucose 112 Calcium 9.8 Phosphorus 4.8 H Magnesium 2.4 Total Bilirubin 0.3 AST 35 H D ALT 50 H Alkaline Phosphatase 78 Total Protein 6.6 Albumin 4.0 TSH Urine Color Urine Appearance Urine pH Ur Specific [place] Urine Protein Urine Glucose (UA) Urine Ketones Urine Blood Urine Nitrite Ur Leukocyte Esterase Urine RBC Urine WBC Ur Squamous Epith Cells Urine Bacteria Urine Test Salicylates < 5.0 L Urine Opiates Screen Acetaminophen < 1 Ur Barbiturates Screen Ur Phencyclidine Scrn Ur Amphetamines Screen U Benzodiazepines Scrn Urine Cocaine Screen U Marijuana (THC) Screen Ethyl Alcohol COVID-19 (KENYA) COVID-19 Clin Com 02/17/21 02/17/21 02/17/21 14:33 14:33 15:26 WBC RBC Hgb Hct MCV MCH MCHC RDW Plt Count MPV Immature Gran % (Auto) Neut % (Auto) Lymph % (Auto) [place] % (Auto) Eos % (Auto) Baso % (Auto) Lymph # (Auto) [place] # (Auto) Eos # (Auto) Baso # (Auto) Abs Immat Gran (auto) Absolute Neuts (auto) Absolute Nucleated RBC Nucleated RBC % (auto) PT INR APTT Sodium Potassium Chloride Carbon Dioxide Anion Gap BUN Creatinine Estim Creat Clear Calc Estimated GFR Random Glucose Calcium Phosphorus Magnesium Total Bilirubin AST ALT Alkaline Phosphatase Total Protein Albumin TSH Urine Color YELLOW Urine Appearance CLEAR Urine pH 6.0 Ur Specific [place] 1.025 Urine Protein NEG Urine Glucose (UA) NEG Urine Ketones NEG Urine Blood NEG Urine Nitrite NEG Ur Leukocyte Esterase NEG Urine RBC 0 Urine WBC 0 Ur Squamous Epith Cells 2+ Urine Bacteria TRACE Urine Test Salicylates Urine Opiates Screen Acetaminophen Ur Barbiturates Screen Ur Phencyclidine Scrn Ur Amphetamines Screen U Benzodiazepines Scrn Urine Cocaine Screen U Marijuana (THC) Screen Ethyl Alcohol < 10 COVID-19 (KENYA) Negative COVID-19 Clin Com See Note 02/17/21 02/17/21 02/17/21 15:26 15:26 17:50 WBC RBC Hgb Hct MCV MCH MCHC RDW Plt Count MPV Immature Gran % (Auto) Neut % (Auto) Lymph % (Auto) [place] % (Auto) Eos % (Auto) Baso % (Auto) Lymph # (Auto) [place] # (Auto) Eos # (Auto) Baso # (Auto) Abs Immat Gran (auto) Absolute Neuts (auto) Absolute Nucleated RBC Nucleated RBC % (auto) PT 12.4 INR 1.0 APTT 34.9 Sodium Potassium Chloride Carbon Dioxide Anion Gap BUN Creatinine Estim Creat Clear Calc Estimated GFR Random Glucose Calcium Phosphorus Magnesium Total Bilirubin AST ALT Alkaline Phosphatase Total Protein Albumin TSH Urine Color Urine Appearance Urine pH Ur Specific [place] Urine Protein Urine Glucose (UA) Urine Ketones Urine Blood Urine Nitrite Ur Leukocyte Esterase Urine RBC Urine WBC Ur Squamous Epith Cells Urine Bacteria Urine Test NEGATIVE Salicylates Urine Opiates Screen Not Detected Acetaminophen Ur Barbiturates Screen Not Detected Ur Phencyclidine Scrn Not Detected Ur Amphetamines Screen POSITIVE H U Benzodiazepines Scrn POSITIVE H Urine Cocaine Screen Not Detected U Marijuana (THC) Screen POSITIVE H Ethyl Alcohol COVID-19 (KENYA) COVID-19 Clin Com 02/17/21 02/18/21 02/18/21 17:50 05:27 05:27 WBC 11.8 H RBC 4.22 Hgb 12.5 Hct 38.6 MCV 91.5 MCH 29.6 MCHC 32.4 RDW 15.7 Plt Count 478 H MPV 10.0 Immature Gran % (Auto) 0.3 Neut % (Auto) 54.0 Lymph % (Auto) 32.8 [place] % (Auto) 7.9 Eos % (Auto) 4.3 H Baso % (Auto) 0.7 Lymph # (Auto) 3.9 [place] # (Auto) 0.9 Eos # (Auto) 0.5 H Baso # (Auto) 0.1 Abs Immat Gran (auto) 0.03 Absolute Neuts (auto) 6.4 Absolute Nucleated RBC 0.000 Nucleated RBC % (auto) 0.0 PT INR APTT Sodium 139 138 Potassium 4.4 5.2 H Chloride 113 H 114 H Carbon Dioxide 20 L 21 L Anion Gap 10 L 8 L BUN 9 7 L Creatinine 0.67 0.65 Estim Creat Clear Calc 116.3 119.9 Estimated GFR > 60 > 60 Random Glucose 119 H 105 Calcium 7.7 L D 8.8 D Phosphorus Magnesium Total Bilirubin 0.3 0.3 AST 26 20 ALT 39 H 34 H Alkaline Phosphatase 63 69 Total Protein 5.2 L D 5.5 L Albumin 3.2 L 3.4 L TSH 1.71 Urine Color Urine Appearance Urine pH Ur Specific [place] Urine Protein Urine Glucose (UA) Urine Ketones Urine Blood Urine Nitrite Ur Leukocyte Esterase Urine RBC Urine WBC Ur Squamous Epith Cells Urine Bacteria Urine Test Salicylates < 5.0 L Urine Opiates Screen Acetaminophen < 1 Ur Barbiturates Screen Ur Phencyclidine Scrn Ur Amphetamines Screen U Benzodiazepines Scrn Urine Cocaine Screen U Marijuana (THC) Screen Ethyl Alcohol COVID-19 (KENYA) COVID-19 Clin Com Progress Note: A&P Time Spent With Patient Time: Total time spent is greater than 50% in coordination of care (as documented) at patient's floor/unit and/or counseling patient: Total time spent with greater than 50% in coordination of care (as documented) at patient's floor/unit and/or counseling patient:: 0
[2021-02-18] MEDS: Gabapentin 300 MG CAPSULE PO (11:34)
[2021-02-18] MEDS: SUMAtriptan succinate 50 MG TABLET PO (11:34)
[2021-02-18] MEDS: Sertraline HCL 100 MG TABLET 200 MG PO (11:34)
[2021-02-18] MEDS: clonazePAM 1 MG TABLET PO ×2 (11:34→20:33)
[2021-02-18] MEDS: Nicotine 21 MG PATCH.TD24 TRANSDERMA (14:12)
[2021-02-18] MEDS: Gabapentin 100 MG CAPSULE 200 MG PO (20:34)
[2021-02-18] MEDS: traZODone HCL 50 MG TABLET PO (20:35)
[2021-02-19] VITALS: BP 124/70; PULSE 63; RESP 18; TEMP 35.7; O2SAT 93
[2021-02-19 04:00] VITALS: BP 114/74; PULSE 55; RESP 16; TEMP 35.9; O2SAT 93
[2021-02-19 06:00] VITALS: BMI 29.6
[2021-02-19] MEDS: Omeprazole 20 MG CAPSULE.DR PO (06:29)
[2021-02-19 07:50] VITALS: BP 128/59; RESP 18; TEMP 36.6; O2SAT 94
[2021-02-19] MEDS: Gabapentin 300 MG CAPSULE PO (08:02)
[2021-02-19] MEDS: Sertraline HCL 100 MG TABLET 200 MG PO (08:02)
[2021-02-19] MEDS: Cariprazine HCl 3 MG CAPSULE 6 MG PO (08:02)
[2021-02-19] MEDS: SUMAtriptan succinate 50 MG TABLET PO (08:02)
[2021-02-19] MEDS: clonazePAM 1 MG TABLET PO ×2 (08:02→20:19)
[2021-02-19] MEDS: Nicotine 21 MG PATCH.TD24 TRANSDERMA (08:05)
[2021-02-19 10:01] LABS: MANUAL DIFF FLAG NO
[2021-02-19 10:06] LABS: Basophils Absolute Auto 0.1 X10*3/uL (0.0-0.2); Basophils Percent Auto 0.9 % (0-2); Eosinophils Absolute Auto 0.5 X10*3/uL (0.0-0.4); Eosinophils Percent Auto 4.1 % (0-4); Hematocrit 38.5 % (37-47); Hemoglobin 13.1 g/dl (12.0-16.0); Imm Gran Abs Auto 0.04 X10*3/uL (0.00-0.03); Imm Gran Pct Auto 0.4 % (0.0-0.4); Lymphocytes Absolute Auto 4.3 X10*3/uL (1.2-4.9); Lymphocytes Percent Auto 37.7 % (20-40); Mean Corpuscular Hemoglobin 30.3 pg (27.0-33.0); Mean Corpuscular Volume 88.9 fL (80-98); Mean Platelet Volume 10.1 fL (9.4-12.3); Monocytes Absolute Auto 0.9 X10*3/uL (0.1-1.2); Monocytes Percent Auto 7.7 % (2-11); Neutrophils Absolute Auto 5.6 X10*3/uL (2.0-8.3); Neutrophils Percent Auto 49.2 % (45-73); Platelet Count 507 X10*3/uL (160-400); Red Blood Count 4.33 X10*6/uL (4.20-5.50); White Blood Count 11.4 X10*3/uL (4.8-10.8)
[2021-02-19 10:48] LABS: Alanine Aminotransferase 30 U/L (0-31); Albumin Level 3.9 g/dL (3.5-5.0); Alkaline Phosphatase 80 U/L (39-117); Anion Gap 13 (12-20); Aspartate Amino Transferase 19 U/L (5-31); Bilirubin Direct < 0.2 mg/dL (0.0-0.5); Bilirubin Total 0.3 mg/dL (0.0-1.0); Blood Urea Nitrogen 5 mg/dL (9-16); Calcium 9.2 mg/dL (8.4-10.2); Carbon Dioxide 24 mmol/L (22-29); Chloride 105 mmol/L (96-108); Creatinine Clr Calc Pharmacy 102.9; Estimated Glomerular Filt Rate > 60; Glucose Random 104 mg/dL (60-115); Potassium 5.1 mmol/L (3.3-5.1); Sodium 137 mmol/L (135-145); Total Protein 6.6 g/dL (6.5-8.0)
[2021-02-19 12:00] VITALS: BP 120/62; PULSE 58; RESP 18; TEMP 36.1; O2SAT 96
[2021-02-19 15:00] VITALS: BP 109/67; PULSE 61; RESP 18; TEMP 37.1; O2SAT 95
[2021-02-19] MEDS: clonazePAM 0.5 MG TABLET PO (15:26)
--- NOTE | 2021-02-19 17:46 | P.PNIM_ITS ---
Subjective Subjective Date of Service: 02/19/21 Interval History: no dizziness or chest pain no nausea/vomiting Physical Exam Vital Signs: Vital Signs: Last Vital Signs Temp 98.8 F 02/19/21 15:00 Pulse 61 02/19/21 15:00 Resp 18 02/19/21 15:00 BP 109/67 02/19/21 15:00 Pulse Ox 95 02/19/21 15:00 Body Mass Index 29.6 Gen: in no acute distress HEENT: sclera anicteric, moist mucus membranes Neck: supple Lungs: clear to auscultation bilaterally Heart: regular rate and rhythm, no murmurs Abd: soft, non-tender, non-distended Ext: no edema Skin: warm/well-perfused Neuro: alert and oriented x3, no focal findings Psych: restricted affectt Objective Data Current Medications Generic Name Dose Route Start Last Admin Trade Name Freq PRN Reason Stop Dose Admin Albuterol Sulfate 2 puff 02/17/21 20:53 Albuterol Sulfate 90 Mcg 8 Gm Inhaler INHALE Q4H PRN shortness of breath or wheezing Cariprazine 6 mg 02/19/21 09:00 02/19/21 08:02 Cariprazine Hcl 3 Mg Capsule PO 6 mg DAILY JOSE Administration Clonazepam 1 mg 02/18/21 10:45 02/19/21 08:02 Clonazepam 1 Mg Tablet PO 1 mg BID JOSE Administration Clonazepam 0.5 mg 02/18/21 12:00 02/19/21 15:26 Clonazepam 0.5 Mg Tablet PO 0.5 mg DAILY@1200 PRN Administration Anxiety Gabapentin 300 mg 02/18/21 09:00 02/19/21 08:02 Gabapentin 300 Mg Capsule PO 300 mg DAILY JOSE Administration Gabapentin 200 mg 02/17/21 21:00 02/18/21 20:34 Gabapentin 100 Mg Capsule PO 200 mg BEDTIME JOSE Administration Nicotine 21 mg 02/18/21 13:30 02/19/21 08:05 Nicotine 21 Mg Patch.Td24 TRANSDERMA 21 mg DAILY JOSE Administration Non-Formulary Medication 25 mg 02/18/21 09:00 Dextroamphetamine-Amphetamine PO DAILY JOSE Omeprazole 20 mg 02/18/21 06:30 02/19/21 06:29 Omeprazole 20 Mg Capsule.Dr PO 20 mg DAILY@0630 JOSE Administration Sertraline HCl 200 mg 02/18/21 09:00 02/19/21 08:02 Sertraline Hcl 100 Mg Tablet PO 200 mg DAILY JOSE Administration Sumatriptan Succinate 50 mg 02/20/21 06:00 Sumatriptan Succinate 50 Mg Tablet PO DAILY MRX1 PRN Migraine Headache Trazodone HCl 50 mg 02/17/21 20:53 02/18/21 20:35 Trazodone Hcl 50 Mg Tablet PO 50 mg BEDTIME PRN Administration Insomnia Labs CBC & Chem 7: 02/19/21 09:42 02/19/21 09:42 Labs: Laboratory Results - last 24 hr 02/19/21 02/19/21 09:42 09:42 WBC 11.4 H RBC 4.33 Hgb 13.1 Hct 38.5 MCV 88.9 MCH 30.3 MCHC 34.0 RDW 15.0 Plt Count 507 H MPV 10.1 Immature Gran % (Auto) 0.4 Neut % (Auto) 49.2 Lymph % (Auto) 37.7 [place] % (Auto) 7.7 Eos % (Auto) 4.1 H Baso % (Auto) 0.9 Lymph # (Auto) 4.3 [place] # (Auto) 0.9 Eos # (Auto) 0.5 H Baso # (Auto) 0.1 Abs Immat Gran (auto) 0.04 H Absolute Neuts (auto) 5.6 Absolute Nucleated RBC 0.000 Nucleated RBC % (auto) 0.0 Sodium 137 Potassium 5.1 Chloride 105 Carbon Dioxide 24 Anion Gap 13 BUN 5 L Creatinine 0.73 Estim Creat Clear Calc 102.9 Estimated GFR > 60 Random Glucose 104 Calcium 9.2 Total Bilirubin 0.3 Direct Bilirubin < 0.2 AST 19 ALT 30 Alkaline Phosphatase 80 Total Protein 6.6 Albumin 3.9 Assessment and Plan (1) Suicide attempt by multiple drug overdose: Status: Acute Assessment and Plan: hospital d#3 36yo F with bipolar depression, anxiety, PTSD, borderline personality disorder, insomnia, migraines, prior splenectomy, multiple overdose attempts admitted to ICU with hypotension after intentional overdose with clonazepam, trazodone, and clonidine- unknown quantity other than a handful did not require pressors stepped down to C 02/18/21 awaiting crisis evaluation # polysubstance overdose - bradycardia and hypotension due to clonidine resolving. remains with sitter. will request crisis evaluation again- they have not yet seen the pt # mood disorder - continue cariprazine, sertraline, clonazepam, gabapentin, trazodone, Adderall # tobacco abuse - NRT
[2021-02-19 19:22] VITALS: BP 116/66; PULSE 64; RESP 20; TEMP 36.9; O2SAT 95
[2021-02-19] MEDS: traZODone HCL 50 MG TABLET PO (20:19)
[2021-02-19] MEDS: Gabapentin 100 MG CAPSULE 200 MG PO (20:19)
[2021-02-20] VITALS: BP 112/62; PULSE 53; RESP 18; TEMP 37; O2SAT 98
[2021-02-20 04:00] VITALS: BP 136/84; PULSE 63; RESP 18; TEMP 36.6; O2SAT 99
[2021-02-20] MEDS: Omeprazole 20 MG CAPSULE.DR PO (05:17)
[2021-02-20 05:50] VITALS: BMI 32.1
[2021-02-20 06:59] VITALS: BP 119/67; PULSE 56; RESP 16; TEMP 36.3; O2SAT 96
[2021-02-20] MEDS: Nicotine 21 MG PATCH.TD24 TRANSDERMA (08:40)
[2021-02-20] MEDS: Cariprazine HCl 3 MG CAPSULE 6 MG PO (08:40)
[2021-02-20] MEDS: Gabapentin 300 MG CAPSULE PO (08:40)
[2021-02-20] MEDS: clonazePAM 1 MG TABLET PO (08:40)
[2021-02-20] MEDS: Sertraline HCL 100 MG TABLET 200 MG PO (08:40)
[2021-02-20] MEDS: Amphetamine Mixed Salts 10 MG TABLET PO (08:40)
--- NOTE | 2021-02-20 08:52 | MHC.CM.PN ---
DP contingent on Careteam consult. Notified supervision, Pt cleared 10am 02/19/21. The Care team has been contacted RE this STAT referral> 3x since Pt medically cleared. Leadership notified of barrier to discharge. CM will follow.
[2021-02-20 11:41] VITALS: BP 122/66; PULSE 59; RESP 18; TEMP 36.4; O2SAT 95
--- NOTE | 2021-02-20 12:28 | P.DS_ITS ---
DS: Providers Provider Date of Service: 02/20/21 Date of admission: 02/17/21 20:39 Primary care physician: Rhoda Pina MD Consults: 02/17/21 12:33 Consult to Crisis Stat Reason for consultation: SI/ OD Has provider been notified: No 02/18/21 02:27 Consult for Sitter Routine Reason for consultation: si Has provider been notified: No 02/18/21 02:28 Consult to Psychiatry Routine Consulting Provider: [facility] Reason for consultation: SI Attemp 02/19/21 11:42 Consult to Crisis Stat Reason for consultation: overdosed on clonidine/clonaezpam/trazodone. MEDICALLY CLEARED 02/19/21 14:00 Consult to Crisis Stat Reason for consultation: Second request 02/19/21 14:12 Consult to Care Team Stat Comment: Reason for consultation: N has not seen her despite two requests 02/19/21 17:47 Consult to Care Team Stat Comment: Reason for consultation: overdose. 2nd request. [facility] has not see pt. holding up discharge 02/20/21 08:14 Consult to Care Team Stat Comment: Reason for consultation: Overdose, third request, medically cleared Consult to Crisis Stat Reason for consultation: Overdose, third request, medically cleared DS: Diagnosis Discharge Diagnosis (1) Suicide attempt by multiple drug overdose: Status: Acute (2) Clonidine overdose: Status: Acute (3) Bradycardia: Status: Acute (4) Hypotension: Status: Acute DS: Medications Discharge Medications Home Medications: Home Medications Medication Instructions Recorded Confirmed Pulmicort Flexhaler 1 inh INHALATION BID 02/17/21 clonazepam 1 mg PO BID 02/17/21 02/17/21 clonidine HCl 0.1 mg PO TID 02/17/21 02/17/21 sumatriptan succinate 50 mg PO DAILY MRX1 02/17/21 02/17/21 Previous Rx's Medication Instructions Recorded Vraylar 6 mg PO DAILY 30 Days #30 cap 10/21/20 clonazepam 0.5 mg PO DAILY@1200 PRN 1 Days #2 10/21/20 tab dextroamphetamine-amphetamine 25 mg PO QAM 1 Days #1 cap 10/21/20 gabapentin 200 mg PO BEDTIME 1 Days #1 cap 10/21/20 gabapentin 300 mg PO DAILY 1 Days #1 cap 10/21/20 pantoprazole 40 mg PO DAILY 1 Days #1 tab 10/21/20 trazodone 50 mg PO BEDTIME PRN 30 Days #30 10/21/20 tab albuterol sulfate [Ventolin HFA] 2 puff INHALATION Q4H PRN 30 Days 01/30/21 g sertraline 200 mg PO DAILY 30 Days #60 tab 01/30/21 DS: Summary Hospital Course Hospital Course: From history and 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 During my interview, she corroborates these and states that she is not suicidal, she simply wanted to get away from her problems which she did not want to disclose to me. Denies suicidal ideation, denies auditory or visual hallucinations, she denies feeling like she wants to harm herself at this point and denies homicidal ideation. In the ER, the patient was noted to be hypotensive, alert and following commands, workup reveals a white count 13.2, platelets of 483, H&H of 13 and 39 respectively. Chemistry revealed no electrolyte abnormalities, normal renal f unction. Urinalysis negative and negative test. Her toxicology screen reveals less than 5 salicylates, less than 1 mcg of acetaminophen, positive for amphetamines, benzodiazepines, marijuana, negative COVID. Patient was given IV fluids however the patient continued to be hypotensive and this was the reason why she was referred to us. However the patient is otherwise clinically stable, mentating well, renal function is stable. The patient was admitted to the ICU. Concern was focused on the clonidine component of her overdose attempt. She did not require pressors; hypotension an d bradycardia resolved with fluids and supportive care. She was stepped down to the [facility] 02/18/21. Sitter was maintaned. Crisis evaluation was requested 02/19/21 once she was medically cleared. She was accepted for transfer to the inpatient psychiatry unit on 02/20/21. Time Spent with Patient Time attestation: Total time spent providing and/or coordinating discharge services: 35 Discharge coordination time: Greater than 30 minutes Physical Exam Vital Signs: Vital Signs: Last Vital Signs Temp 97.6 F 02/20/21 11:41 Pulse 59 02/20/21 11:41 Resp 18 02/20/21 11:41 BP 122/66 02/20/21 11:41 Pulse Ox 95 02/20/21 11:41 Body Mass Index 32.1 Gen: in no acute distress HEENT: sclera anicteric, moist mucus membranes Neck: supple Lungs: clear to auscultation bilaterally Heart: regular rate and rhythm, no murmurs Abd: soft, non-tender, non-distended Ext: no edema Skin: warm/well-perfused Neuro: alert and oriented x3, no focal findings Psych: restricted affect DS: Data Data Completed and Pending Completed studies during hospitalization [Text1]: Laboratory Results WBC 11.4 X10*3/uL (4.8-10.8) H 02/19/21 09:42 RBC 4.33 X10*6/uL (4.20-5.50) 02/19/21 09:42 Hgb 13.1 g/dl (12.0-16.0) 02/19/21 09:42 Hct 38.5 % (37-47) 02/19/21 09:42 MCV 88.9 fL (80-98) 02/19/21 09:42 MCH 30.3 pg (27.0-33.0) 02/19/21 09:42 MCHC 34.0 g/dl (31.0-35.0) 02/19/21 09:42 RDW 15.0 % (11.0-16.0) 02/19/21 09:42 Plt Count 507 X10*3/uL (160-400) H 02/19/21 09:42 MPV 10.1 fL (9.4-12.3) 02/19/21 09:42 Immature Gran % (Auto) 0.4 % (0.0-0.4) 02/19/21 09:42 Neut % (Auto) 49.2 % (45-73) 02/19/21 09:42 Lymph % (Auto) 37.7 % (20-40) 02/19/21 09:42 [place] % (Auto) 7.7 % (2-11) 02/19/21 09:42 Eos % (Auto) 4.1 % (0-4) H 02/19/21 09:42 Baso % (Auto) 0.9 % (0-2) 02/19/21 09:42 Lymph # (Auto) 4.3 X10*3/uL (1.2-4.9) 02/19/21 09:42 [place] # (Auto) 0.9 X10*3/uL (0.1-1.2) 02/19/21 09:42 Eos # (Auto) 0.5 X10*3/uL (0.0-0.4) H 02/19/21 09:42 Baso # (Auto) 0.1 X10*3/uL (0.0-0.2) 02/19/21 09:42 Abs Immat Gran (auto) 0.04 X10*3/uL (0.00-0.03) H 02/19/21 09:42 Absolute Neuts (auto) 5.6 X10*3/uL (2.0-8.3) 02/19/21 09:42 Absolute Nucleated RBC 0.000 X10*3/uL (0.0-0.012) 02/19/21 09:42 Nucleated RBC % (auto) 0.0 /100WBC (0.0-0.2) 02/19/21 09:42 PT 12.4 SEC (10.8-13.0) 02/17/21 17:50 INR 1.0 (0.9-1.1) 02/17/21 17:50 APTT 34.9 SEC (24.1-38.0) 02/17/21 17:50 Sodium 137 mmol/L (135-145) 02/19/21 09:42 Potassium 5.1 mmol/L (3.3-5.1) 02/19/21 09:42 Chloride 105 mmol/L (96-108) 02/19/21 09:42 Carbon Dioxide 24 mmol/L (22-29) 02/19/21 09:42 Anion Gap 13 (12-20) 02/19/21 09:42 BUN 5 mg/dL (9-16) L 02/19/21 09:42 Creatinine 0.73 mg/dL (0.5-1.4) 02/19/21 09:42 Estim Creat Clear Calc 102.9 02/19/21 09:42 Estimated GFR > 60 02/19/21 09:42 Random Glucose 104 mg/dL (60-115) 02/19/21 09:42 Calcium 9.2 mg/dL (8.4-10.2) 02/19/21 09:42 Phosphorus 4.8 mg/dL (2.7-4.5) H 02/17/21 14:33 Magnesium 2.4 mg/dL (1.6-2.6) 02/17/21 14:33 Total Bilirubin 0.3 mg/dL (0.0-1.0) 02/19/21 09:42 Direct Bilirubin < 0.2 mg/dL (0.0-0.5) 02/19/21 09:42 AST 19 U/L (5-31) 02/19/21 09:42 ALT 30 U/L (0-31) 02/19/21 09:42 Alkaline Phosphatase 80 U/L (39-117) 02/19/21 09:42 Total Protein 6.6 g/dL (6.5-8.0) 02/19/21 09:42 Albumin 3.9 g/dL (3.5-5.0) 02/19/21 09:42 TSH 1.71 uIU/mL (0.32-4.0) 02/18/21 05:27 Urine Color YELLOW 02/17/21 15:26 Urine Appearance CLEAR 02/17/21 15:26 Urine pH 6.0 (5.0-8.0) 02/17/21 15:26 Ur Specific [place] 1.025 (1.005-1.025) 02/17/21 15:26 Urine Protein NEG MG/DL (NEG-TRACE) 02/17/21 15:26 Urine Glucose (UA) NEG MG/DL (NEG) 02/17/21 15:26 Urine Ketones NEG MG/DL (NEG) 02/17/21 15:26 Urine Blood NEG (NEG) 02/17/21 15:26 Urine Nitrite NEG (NEG) 02/17/21 15:26 Ur Leukocyte Esterase NEG (NEG) 02/17/21 15:26 Urine RBC 0 /HPF (0) 02/17/21 15:26 Urine WBC 0 /HPF (0-4) 02/17/21 15:26 Ur Squamous Epith Cells 2+ /LPF 02/17/21 15:26 Urine Bacteria TRACE /LPF 02/17/21 15:26 Urine Test NEGATIVE (NEGATIVE) 02/17/21 15:26 Salicylates < 5.0 mg/dL (15-30) L 02/17/21 17:50 Urine Opiates Screen Not Detected (Not Detect) 02/17/21 15:26 Acetaminophen < 1 mcg/mL (<30) 02/17/21 17:50 Ur Barbiturates Screen Not Detected (Not Detect) 02/17/21 15:26 Ur Phencyclidine Scrn Not Detected (Not Detect) 02/17/21 15:26 Ur Amphetamines Screen POSITIVE (Not Detect) H 02/17/21 15:26 U Benzodiazepines Scrn POSITIVE (Not Detect) H 02/17/21 15:26 Urine Cocaine Screen Not Detected (Not Detect) 02/17/21 15:26 U Marijuana (THC) Screen POSITIVE (Not Detect) H 02/17/21 15:26 Ethyl Alcohol < 10 mg/dL 02/17/21 14:33 COVID-19 (KENYA) Negative (Negative) 02/17/21 14:33 COVID-19 Clin Com See Note 02/17/21 14:33 Discharge Plan Discharge Disposition: Xfer Psychiatric Hosp Referrals: Rhoda Pina MD [Primary Care Provider] - 1 Week (Nurse will call with appointment. ) Discharge Medications: Continued trazodone 50 mg Tablet 50 mg PO BEDTIME PRN (Reason: Insomnia) 30 Days Qty: 30 RF: 0 clonazepam 0.5 mg tablet 0.5 mg PO DAILY@1200 PRN (Reason: Anxiety) 1 Days Qty: 2 RF: 0 pantoprazole 40 mg tablet,delayed release (DR/EC) 40 mg PO DAILY 1 Days Qty: 1 RF: 0 gabapentin 300 mg capsule 300 mg PO DAILY 1 Days Qty: 1 RF: 0 gabapentin 100 mg capsule 200 mg PO BEDTIME 1 Days Qty: 1 RF: 0 dextroamphetamine-amphetamine 25 mg capsule,extended release 24hr 25 mg PO QAM 1 Days Qty: 1 RF: 0 Vraylar 6 mg capsule 6 mg PO DAILY 30 Days Qty: 30 RF: 0 albuterol sulfate [Ventolin HFA] 90 mcg/actuation Hfa Aerosol Inhaler 2 puff inhalation Q4H PRN (Reason: shortness of breath or wheezing) 30 Days RF: 0 sertraline 100 mg Tablet 200 mg PO DAILY 30 Days Qty: 60 RF: 0 sumatriptan succinate 50 mg tablet 50 mg PO DAILY MRX1 RF: 0 Pulmicort Flexhaler 180 mcg/actuation aerosol powdr breath activated 1 inh inhalation BID RF: 0 clonidine HCl 0.1 mg tablet 0.1 mg PO TID RF: 0 clonazepam 1 mg tablet 1 mg PO BID RF: 0 Discharge Orders: Discharge Order (Routine); Ordered 02/20/21 Ordered By: Erasmo Long Forms: Patient Portal Discharge page Care Plan Goals: mental health Health Concerns: overdose attempt Plan of Treatment: transfer to for inpatient psychiatry care Assessment: overdose attempt Patient Instructions: Depression (DC)
--- NOTE | 2021-02-20 13:25 | MHC.CM.PN ---
DP The Pt has been seen by the [facility]. DP is to M-5 today.
[2021-02-20] MEDS: clonazePAM 0.5 MG TABLET PO (14:07)
== END 2021-02-20 15:08 | DRG 918 ==
LOC: HO.ED 12:12 → HO.ICU 20:48 → HO.IMC 02-18 11:35
PROVIDERS: Nurse Practitioner Primary Care; Physician Assistant Medical; Admitting Provider Anesthesiology; Emergency Provider Emergency Medicine; PCP Student in an Organized Health Care Education/Training Program; Visit Provider Family Medicine
DX: T46.5X2A Poisoning by other antihypertensive drugs, intentional self-harm, initial encounter (principal); R45.851 Suicidal ideations; F43.10 Post-traumatic stress disorder, unspecified; R00.1 Bradycardia, unspecified; I95.2 Hypotension due to drugs; F17.210 Nicotine dependence, cigarettes, uncomplicated; E86.0 Dehydration; Z71.6 Tobacco abuse counseling; Y92.9 Unspecified place or not applicable; Z20.822 Contact with and (suspected) exposure to COVID-19; Z79.899 Other long term (current) drug therapy
CPT/HCPCS: 36415; 80048; 80053; 80076; 80143; 80179; 80307; 80320; 81001; 81025; 83735; 84100; 84443; 85025; 85610; 85730; 87635; 93005; 96360; 96361; 99285; 99291; 99292

== ENCOUNTER 2021-02-20 15:17 | Inpatient (IN) | payer MEDICARE, MEDICAID, SELFPAY ==
--- NOTE | ~2021-02-20 | XR_ITS ---
EXAMINATION: XR ABDOMEN KUB CLINICAL INDICATION: No bowel movement for 7 days COMPARISON: None TECHNIQUE: AP view of the abdomen. FINDINGS: There is no evidence of ileus or obstruction. No pneumatosis intestinalis. Stool and gas is seen throughout nondilated colon. No significant stool burden is seen within the transverse or descending colon. Bony structures unremarkable. XR/XR KUB IMPRESSION: No significant stool burden seen within the descending, sigmoid colon, or rectum.
[2021-02-20 16:22] VITALS: BMI 32.0
[2021-02-20] MEDS: SUMAtriptan succinate 50 MG TABLET PO (16:41)
[2021-02-20] MEDS: Amphetamine Mixed Salts 10 MG TABLET PO (16:41)
[2021-02-20 18:09] VITALS: BP 132/84; PULSE 73; TEMP 36.4
--- NOTE | 2021-02-20 19:18 | PC.NURSE ---
Pt signed a 3 day notice on 02/20
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
[2021-02-20] MEDS: clonazePAM 1 MG TABLET PO (20:00)
[2021-02-20] MEDS: Gabapentin 100 MG CAPSULE 200 MG PO (20:00)
[2021-02-20] MEDS: traZODone HCL 50 MG TABLET PO (20:02)
[2021-02-21 06:26] VITALS: BP 121/80; PULSE 92; RESP 18; TEMP 36.4; O2SAT 94
[2021-02-21] MEDS: Omeprazole 20 MG CAPSULE.DR PO (06:36)
[2021-02-21] MEDS: Nicotine 21 MG PATCH.TD24 TRANSDERMA (08:20)
[2021-02-21] MEDS: Cariprazine HCl 3 MG CAPSULE 6 MG PO (08:21)
[2021-02-21] MEDS: Sertraline HCL 100 MG TABLET 200 MG PO (08:21)
[2021-02-21] MEDS: Gabapentin 300 MG CAPSULE PO (08:22)
[2021-02-21] MEDS: clonazePAM 1 MG TABLET PO ×2 (08:22→20:37)
[2021-02-21] MEDS: Amphetamine Mixed Salts 10 MG TABLET PO ×2 (08:22→16:24)
[2021-02-21 08:55] LABS: Estimated Average Glucose 108 mg/dL; Hemoglobin A1c % 5.4 %
[2021-02-21 09:18] LABS: Cholesterol 323 mg/dL; HDL Cholesterol 37 mg/dL; LDL Cholesterol Calculated 236 mg/dl; Triglycerides 252 mg/dL
[2021-02-21 09:39] LABS: Vitamin D 25-OH Total 6.9 ng/mL (>30)
--- NOTE | 2021-02-21 12:14 | PC.NURSE ---
Pt retracted 3-day notice. aware.
[2021-02-21] MEDS: SUMAtriptan succinate 50 MG TABLET PO ×2 (12:15→22:20)
[2021-02-21] MEDS: clonazePAM 0.5 MG TABLET PO (12:16)
[2021-02-21 17:33] VITALS: BP 107/71; PULSE 80; TEMP 36.3
--- NOTE | 2021-02-21 18:32 | HO.PSYADMNOT ---
HPI Chief Complaint: s/p OD of Klonopin, Trazodone, Clonidine Sources of Information: patient interviewed, chart reviewed and crisis/core team assessment reviewed (not available) HPI Subjective Notes: [place] Warning, Conditional Voluntary and 3 Day (retracted) Past Psychiatric History: The patient is a 35 year old female, , mother of 4 minor children, currently living with her family, unemployed on disability with several ancillary services provided by [facility]. Hx of bipolar disorder, PTSD. Her psychiatric provider is Chang Ball and she has [facility] that prepackages her medications and visits her daily and case managing services. The patient has an extensive history of Bipolar disorder, Borderline Personality disorder, past history of trauma and several admissions into the hospital for mood symptoms. Her last admission was a few weeks ago. She reports feeling an increase in symptoms and feeling powerlessness and hopelessness. States this attempt was to . Believes she needs to live with her child away from family and figure out what treatment will be helpful for her. TDN signed on admit. Pt retracted this today after discussion with the team and TW. Reports racing thoughts that interfere with clarity with resulting SI. Discussed resuming clonidine and resulting bradycardia, hypotensive sx and not having to use pressors after attempt Medical Evaluation Reviewed: Yes PMFSH Medical History Anemia Anxiety Asthma B12 deficiency Bipolar disorder, unspecified Borderline personality disorder Bronchitis Cervical cancer Clonidine overdose COPD (chronic obstructive pulmonary disease) Depression Depression HLD (hyperlipidemia) Migraines Polysubstance overdose Posttraumatic stress disorder Smoker Surgical History History of total splenectomy Family History: Many members have substance abuse. Her mother was admitted several times for mood symptoms and probably substance abuse. Social History: lives with ex-H and 4 kids (15, 14, 7, 2). Hx DCF intervention. In relationship with a girlfriend he does not know about it Trauma History: Extensive as noted in past Diagnostics Vital Signs (24Hr): Vital Signs - 24 hr 02/21/21 06:26 02/21/21 17:33 Temperature 97.5 F 97.3 F Pulse Rate 92 80 Respiratory Rate 18 Blood Pressure 121/80 107/71 Pulse Oximetry 94 Body Mass Index 32.0 Labs Labs: Laboratory Results - last 48 hr 02/21/21 02/21/21 08:09 08:09 Estimat Average Glucose 108 Hemoglobin A1c % 5.4 Triglycerides 252 Cholesterol 323 LDL Cholesterol, Calc 236 HDL Cholesterol 37 25-OH Vitamin D Total 6.9 Meds/Allergies Meds Home Medications Acetaminophen (Acetaminophen 325 Mg Tablet) 650 mg PO Q6H PRN PRN Reason: Headache/Pain Mild Scale (1-3) Al Hydroxide/Mg Hydroxide (Magnesium Hydrox/Alum Hydrox 30 Ml Oral.Susp) 30 ml PO Q6H PRN PRN Reason: Heartburn/Nausea Albuterol Sulfate (Albuterol Sulfate 90 Mcg 8 Gm Inhaler) 2 puff INHALE Q4H PRN PRN Reason: shortness of breath or wheezing Amphetamine/Dextroamphetamine (Amphetamine Mixed Salts 10 Mg Tablet) 10 mg PO BID@0800,1700 [facility] Last Admin: 02/21/21 16:24 Dose: 10 mg Documented by: Cariprazine (Cariprazine Hcl 3 Mg Capsule) 6 mg PO DAILY [facility] Last Admin: 02/21/21 08:21 Dose: 6 mg Documented by: Clonazepam (Clonazepam 0.5 Mg Tablet) 0.5 mg PO DAILY@1200 PRN PRN Reason: Anxiety Last Admin: 02/21/21 12:16 Dose: 0.5 mg Documented by: Clonazepam (Clonazepam 1 Mg Tablet) 1 mg PO BID [facility] Last Admin: 02/21/21 08:22 Dose: 1 mg Documented by: Clonidine HCl (Clonidine Hcl 0.1 Mg Tablet) 0.1 mg PO BID [facility]; Protocol Gabapentin (Gabapentin 300 Mg Capsule) 300 mg PO DAILY [facility] Last Admin: 02/21/21 08:22 Dose: 300 mg Documented by: Gabapentin (Gabapentin 100 Mg Capsule) 200 mg PO BEDTIME [facility] Last Admin: 02/20/21 20:00 Dose: 200 mg Documented by: Hydroxyzine HCl (Hydroxyzine Hcl 25 Mg Tablet) 25 mg PO BEDTIME PRN PRN Reason: Anxiety Magnesium Hydroxide (Milk Of Magnesia 30 Ml Oral.Susp) 30 ml PO DAILY PRN PRN Reason: Constipation Nicotine (Nicotine 21 Mg Patch.Td24) 21 mg TRANSDERMA DAILY [facility] Last Admin: 02/21/21 08:20 Dose: 21 mg Documented by: Omeprazole (Omeprazole 20 Mg Capsule.Dr) 20 mg PO DAILY@0630 [facility] Last Admin: 02/21/21 06:36 Dose: 20 mg Documented by: Sertraline HCl (Sertraline Hcl 100 Mg Tablet) 200 mg PO DAILY JOSE Last Admin: 02/21/21 08:21 Dose: 200 mg Documented by: Sumatriptan Succinate (Sumatriptan Succinate 50 Mg Tablet) 50 mg PO DAILY MRX1 PRN PRN Reason: Migraine Headache Last Admin: 02/21/21 12:15 Dose: 50 mg Documented by: Trazodone HCl (Trazodone Hcl 50 Mg Tablet) 50 mg PO BEDTIME PRN PRN Reason: Insomnia Last Admin: 02/20/21 20:02 Dose: 50 mg Documented by: Trazodone HCl (Trazodone Hcl 50 Mg Tablet) 50 mg PO BEDTIME PRN PRN Reason: Insomnia Allergies Allergies Allergy/AdvReac Type Severity Reaction Status Date / Time SEASONAL ALLERGIES Allergy Intermediate RUNNY NOSE Uncoded 12/10/20 09:58 WATERY EYES Mental Status Exam Mental Status Exam Patient Appearance: Fatigued Patient Orientation: Person, Place, Time and Situation Level of Consciousness: Alert Patient Behavior: Talkative Mood Description: Depressed Affect Description: Flat Patient Cognition Impaired: No Ability to Follow Directions: Good Speech Pattern: Spontaneous Speech Memory Description: Intact Delusions: Not Present Thought Process: Racing Thought Content: positive for Racing and positive for Suicidal Ideation Depressive Symptoms: Increased Anxiety, Diff. Making Decisions, Hopelessness, Unhappiness and Thoughts of /Suicide Judgement: Fair Assessment & Plan Assessment & Plan (1) Suicidal ideation: Status: Acute Code(s): R45.851 - Suicidal ideations Assessment and Plan: Pt has retracted TDN and is willing to work on issues with team. (2) Borderline personality disorder: Status: Acute Code(s): F60.3 - Borderline personality disorder (3) Bipolar 2 disorder: Status: Acute Code(s): F31.81 - Bipolar II disorder Assessment and Plan: Reports racing thoughts. Requesting re-introduction to Clonidine. Will trial with ortho vs at bid dosing to eval. (4) HLD (hyperlipidemia): Status: Acute Code(s): E78.5 - Hyperlipidemia, unspecified Assessment and Plan: Atorvastatin 20 mg daily Patient educated on: medication risk/benefits and therapeutic strategies Informed Consent: further education needed Reason for continued inpatient stay Substantial Risk for: harm to self, inability to function, rapid decompensation and med/psych decompensation
[2021-02-21 20:15] VITALS: BP 116/91; PULSE 84; TEMP 37.1
[2021-02-21 20:37] VITALS: BP 116/91; PULSE 84
[2021-02-21] MEDS: traZODone HCL 50 MG TABLET PO ×2 (20:37→22:20)
[2021-02-21] MEDS: cloNIDine HCL 0.1 MG TABLET PO (20:37)
[2021-02-21] MEDS: Gabapentin 100 MG CAPSULE 200 MG PO (20:38)
[2021-02-22] MEDS: traZODone HCL 50 MG TABLET PO ×2 (02:20→20:18)
[2021-02-22 06:15] VITALS: BP 110/72; PULSE 79; RESP 18; TEMP 36.1; O2SAT 97
[2021-02-22] MEDS: Omeprazole 20 MG CAPSULE.DR PO (06:43)
[2021-02-22] MEDS: Amphetamine Mixed Salts 10 MG TABLET PO ×2 (08:13→12:13)
[2021-02-22] MEDS: Nicotine 21 MG PATCH.TD24 TRANSDERMA (08:13)
[2021-02-22] MEDS: Cariprazine HCl 3 MG CAPSULE 6 MG PO (09:00)
[2021-02-22] MEDS: Sertraline HCL 100 MG TABLET 200 MG PO (09:00)
[2021-02-22 09:01] VITALS: BP 100/66; PULSE 80
[2021-02-22] MEDS: cloNIDine HCL 0.1 MG TABLET PO ×2 (09:01→20:16)
[2021-02-22] MEDS: clonazePAM 1 MG TABLET PO ×2 (09:01→20:16)
[2021-02-22] MEDS: Atorvastatin Calcium 20 MG TABLET PO (09:01)
[2021-02-22] MEDS: Cholecalciferol (Vitamin D3) 25 MCG TABLET PO (09:02)
[2021-02-22] MEDS: Gabapentin 300 MG CAPSULE PO (09:02)
[2021-02-22] MEDS: clonazePAM 0.5 MG TABLET PO (12:14)
[2021-02-22] MEDS: SUMAtriptan succinate 50 MG TABLET PO (15:02)
--- NOTE | 2021-02-22 16:35 | P.PNPSI_ITS ---
Subjective Subjective Date of Service: 02/22/21 Reason For Visit: s/p OD of Klonopin, Trazodone, Clonidine Subjective Notes: Conditional Voluntary Interim History: Symptom, medication review with Tammy moore. Discussed chronic, intensive SI, ongoing racing thoughts and bad thoughts persistant for pt to manage. By hx, per record review, trials of Abilify, Latuda, Risperdal, Seroquel, Depakote ER, Gabapentin, Trileptal, Klonopin, Ambien, Lorazepam. Discussed mood stabilizers. Tolerating clonidine re-introduction at bid although 02/22 a.m. VS 100/66. Will keep dosing at bid for today and re-eval for titration on 02/23. Reports some difficulty with sleep without clonidine and by history some vertigo upon awakening so dosage adjustments may need to be longer term. Pt noting that she is not receiving appropriate dose of Adderall XR 25. This is not in formulary, dosing of Adderall adjusted to 15 mg a.m. 10 mg noon to cross titrate which she is accepting of. Review of Systems Review of Systems Yes all other systems are reviewed and are negative (denies) Psychiatric: Reports abnormal sleep pattern, Reports anxiety, Reports depression, Reports hopelessness and Reports suicidal ideation Mental Status Exam Mental Status Exam Patient Appearance: Appropriate Patient Orientation: Person, Place, Time and Situation Level of Consciousness: Alert Patient Behavior: Appropriate, Talkative and Cooperative Mood Description: Depressed Affect Description: Flat Patient Cognition Impaired: No Ability to Follow Directions: Good Speech Pattern: Spontaneous Speech Memory Description: Intact Hallucinations: None Delusions: Not Present Thought Process: Racing Thought Content: positive for Racing and positive for Suicidal Ideation Depressive Symptoms: Loss of Int. in Activity, Feelings of Worthlessness, Hopelessness, Feelings of Guilt, Unhappiness, Thoughts of /Suicide, Loss of Energy and Difficulty Concentrating Judgement: Fair Diagnostics Vital Signs (24Hr): Vital Signs - 24 hr 02/21/21 17:33 02/21/21 20:15 02/21/21 20:37 Temperature 97.3 F 98.7 F Pulse Rate 80 84 84 Respiratory Rate Blood Pressure 107/71 116/91 H 116/91 H Pulse Oximetry 02/22/21 06:15 02/22/21 09:01 Temperature 97 F Pulse Rate 79 80 Respiratory Rate 18 Blood Pressure 110/72 100/66 Pulse Oximetry 97 Body Mass Index 32.0 Labs Labs: Laboratory Results - last 48 hr 02/21/21 02/21/21 08:09 08:09 Estimat Average Glucose 108 Hemoglobin A1c % 5.4 Triglycerides 252 Cholesterol 323 LDL Cholesterol, Calc 236 HDL Cholesterol 37 25-OH Vitamin D Total 6.9 Medications Medications Current Medications Generic Name Dose Route Start Last Admin Trade Name Freq PRN Reason Stop Dose Admin Acetaminophen 650 mg 02/20/21 15:52 Acetaminophen 325 Mg Tablet PO Q6H PRN Headache/Pain Mild Scale (1-3) Al Hydroxide/Mg Hydroxide 30 ml 02/20/21 15:52 Magnesium Hydrox/Alum Hydrox 30 Ml Oral.Susp PO Q6H PRN Heartburn/Nausea Albuterol Sulfate 2 puff 02/20/21 15:52 Albuterol Sulfate 90 Mcg 8 Gm Inhaler INHALE Q4H PRN shortness of breath or wheezing Amphetamine/Dextroamphetamine 15 mg 02/23/21 09:00 Amphetamine Mixed Salts 10 Mg Tablet PO DAILY JOSE Amphetamine/Dextroamphetamine 10 mg 02/22/21 12:00 02/22/21 12:13 Amphetamine Mixed Salts 10 Mg Tablet PO 10 mg 1200 JOSE Administration Atorvastatin Calcium 20 mg 02/22/21 09:00 02/22/21 09:01 Atorvastatin Calcium 20 Mg Tablet PO 20 mg DAILY JOSE Administration Cariprazine 6 mg 02/21/21 09:00 02/22/21 09:00 Cariprazine Hcl 3 Mg Capsule PO 6 mg DAILY JOSE Administration Clonazepam 0.5 mg 02/20/21 15:52 02/22/21 12:14 Clonazepam 0.5 Mg Tablet PO 0.5 mg DAILY@1200 PRN Administration Anxiety Clonazepam 1 mg 02/20/21 21:00 02/22/21 09:01 Clonazepam 1 Mg Tablet PO 1 mg BID JOSE Administration Clonidine HCl 0.1 mg 02/21/21 21:00 02/22/21 09:01 Clonidine Hcl 0.1 Mg Tablet PO 0.1 mg BID JOSE Administration Protocol Gabapentin 300 mg 02/21/21 09:00 02/22/21 09:02 Gabapentin 300 Mg Capsule PO 300 mg DAILY JOSE Administration Gabapentin 200 mg 02/20/21 21:00 02/21/21 20:38 Gabapentin 100 Mg Capsule PO 200 mg BEDTIME JOSE Administration Hydroxyzine HCl 25 mg 02/20/21 15:52 Hydroxyzine Hcl 25 Mg Tablet PO BEDTIME PRN Anxiety [place] Carbonate 300 mg 02/22/21 21:00 [place] Carbonate 300 Mg Capsule PO BEDTIME JOSE Magnesium Hydroxide 30 ml 02/20/21 15:52 Milk Of Magnesia 30 Ml Oral.Susp PO DAILY PRN Constipation Nicotine 21 mg 02/21/21 09:00 02/22/21 08:13 Nicotine 21 Mg Patch.Td24 TRANSDERMA 21 mg DAILY JOSE Administration Omeprazole 20 mg 02/21/21 06:30 02/22/21 06:43 Omeprazole 20 Mg Capsule.Dr PO 20 mg DAILY@0630 JOSE Administration Sertraline HCl 200 mg 02/21/21 09:00 02/22/21 09:00 Sertraline Hcl 100 Mg Tablet PO 200 mg DAILY JOSE Administration Sumatriptan Succinate 50 mg 02/20/21 15:52 02/22/21 15:02 Sumatriptan Succinate 50 Mg Tablet PO 50 mg DAILY MRX1 PRN Administration Migraine Headache Trazodone HCl 50 mg 02/20/21 15:52 02/21/21 22:20 Trazodone Hcl 50 Mg Tablet PO 50 mg BEDTIME PRN Administration Insomnia Trazodone HCl 50 mg 02/20/21 15:52 02/22/21 02:20 Trazodone Hcl 50 Mg Tablet PO 50 mg BEDTIME PRN Administration Insomnia Vitamin D 25 mcg 02/22/21 09:00 02/22/21 09:02 Cholecalciferol (Vitamin D3) 25 Mcg Tablet PO 25 mcg DAILY JOSE Administration Allergies Allergies Allergy/AdvReac Type Severity Reaction Status Date / Time SEASONAL ALLERGIES Allergy Intermediate RUNNY NOSE Uncoded 12/10/20 09:58 WATERY EYES Assessment & Plan Assessment & Plan (1) Suicidal ideation: Status: Acute Code(s): R45.851 - Suicidal ideations Assessment and Plan: Pt continues with SI, racing thoughts. Trial of [place] 300 mg HS (2) Borderline personality disorder: Status: Acute Code(s): F60.3 - Borderline personality disorder (3) Bipolar 2 disorder: Status: Acute Code(s): F31.81 - Bipolar II disorder Assessment and Plan: Reports racing thoughts, SI [place] 300 mg bid Continue clonidine at bid dosing (4) HLD (hyperlipidemia): Status: Acute Code(s): E78.5 - Hyperlipidemia, unspecified Assessment and Plan: Atorvastatin 20 mg daily Greater than 50% of the session was spent on counseling and/or coordination of care Reason for contiued inpatient stay Substantial Risk for: harm to self and rapid decompensation
[2021-02-22 16:48] VITALS: BP 112/67; PULSE 87; TEMP 36.4
[2021-02-22] MEDS: hydrOXYzine HCL 25 MG TABLET PO (18:03)
[2021-02-22] MEDS: Gabapentin 100 MG CAPSULE 200 MG PO (20:15)
[2021-02-22] MEDS: Lithium Carbonate 300 MG CAPSULE PO (20:15)
[2021-02-22 20:16] VITALS: BP 116/71; PULSE 95
[2021-02-23 04:06] LABS: Folate 4.8 ng/mL (> or = 4.0); Vitamin B12 278 pg/mL (200-900)
[2021-02-23 06:00] VITALS: BP 114/75; PULSE 96; RESP 18; TEMP 36; O2SAT 94
[2021-02-23] MEDS: Omeprazole 20 MG CAPSULE.DR PO (06:08)
[2021-02-23 08:20] VITALS: BP 109/65; PULSE 95
[2021-02-23] MEDS: Gabapentin 300 MG CAPSULE PO (08:20)
[2021-02-23] MEDS: clonazePAM 1 MG TABLET PO ×2 (08:20→20:12)
[2021-02-23] MEDS: Sertraline HCL 100 MG TABLET 200 MG PO (08:20)
[2021-02-23] MEDS: Cariprazine HCl 3 MG CAPSULE 6 MG PO (08:20)
[2021-02-23] MEDS: Atorvastatin Calcium 20 MG TABLET PO (08:20)
[2021-02-23] MEDS: Cholecalciferol (Vitamin D3) 25 MCG TABLET PO (08:20)
[2021-02-23] MEDS: cloNIDine HCL 0.1 MG TABLET PO ×3 (08:20→20:09)
[2021-02-23] MEDS: Amphetamine Mixed Salts 10 MG TABLET 15 MG PO (08:21)
[2021-02-23] MEDS: Nicotine 21 MG PATCH.TD24 TRANSDERMA ×2 (08:25)
[2021-02-23] MEDS: clonazePAM 0.5 MG TABLET PO (12:08)
[2021-02-23] MEDS: Amphetamine Mixed Salts 10 MG TABLET PO (12:08)
[2021-02-23 14:07] VITALS: BP 110/60; PULSE 70
[2021-02-23 15:00] VITALS: BP 120/65; PULSE 63; TEMP 36.9
[2021-02-23] MEDS: SUMAtriptan succinate 50 MG TABLET PO (17:22)
[2021-02-23] MEDS: Magnesium Citrate 300 ML SOLUTION PO (18:11)
[2021-02-23 19:45] VITALS: BP 115/76; PULSE 87
[2021-02-23 20:09] VITALS: BP 115/76; PULSE 87
[2021-02-23] MEDS: Mirtazapine 7.5 MG TABLET 3.75 MG PO (20:10)
[2021-02-23] MEDS: Gabapentin 100 MG CAPSULE 200 MG PO (20:11)
[2021-02-23] MEDS: Lithium Carbonate 300 MG CAPSULE PO (20:11)
--- NOTE | 2021-02-23 21:29 | P.PNPSI_ITS ---
Subjective Subjective Date of Service: 02/23/21 Reason For Visit: s/p OD of Klonopin, Trazodone, Clonidine Subjective Notes: Conditional Voluntary Interim History: [facility] was able to bring in Adderall XR for pt-this was changed in pharmacy. Depressed, with insomnia-will trial 3.75 mg Remeron Tolerating low dose [place]. Re-titration of Clonidine to tid. Will need continued monitoring. Interactive in milieu. Working on issues. Medication Compliance: Yes Side effects from medications: No Attending Groups: Yes Review of Systems Review of Systems Yes all other systems are reviewed and are negative Psychiatric: Reports anxiety, Reports depression, Reports hopelessness, Reports irritability, Reports anhedonia, Reports mood swings and Reports suicidal ideation Mental Status Exam Mental Status Exam Patient Appearance: Appropriate Patient Orientation: Person, Place, Time and Situation Level of Consciousness: Alert Patient Behavior: Talkative, Cooperative and Good Eye Contact Mood Description: Depressed and Anxious Affect Description: Depressed and Flat Patient Cognition Impaired: No Ability to Follow Directions: Good Speech Pattern: Spontaneous Speech Memory Description: Intact Hallucinations: None Delusions: Not Present Thought Process: Rumination Thought Content: positive for Perseveration and positive for Suicidal Ideation Depressive Symptoms: Diff. Making Decisions, Difficulty Sleeping, Feelings of Worthlessness, Hopelessness, Isolating-Friends/Family, Feelings of Guilt, Unhappiness, Increased Fatigue, Thoughts of /Suicide, Low Self Esteem, Loss of Energy and Difficulty Concentrating Judgement: Fair Diagnostics Vital Signs (24Hr): Vital Signs - 24 hr 02/23/21 06:00 02/23/21 08:20 02/23/21 14:07 Temperature 96.8 F Pulse Rate 96 95 70 Respiratory Rate 18 Blood Pressure 114/75 109/65 110/60 Pulse Oximetry 94 02/23/21 15:00 02/23/21 19:45 02/23/21 20:09 Temperature 98.4 F Pulse Rate 63 87 87 Respiratory Rate Blood Pressure 120/65 115/76 115/76 Pulse Oximetry Body Mass Index 32.0 Labs Labs: Laboratory Results - last 48 hr 02/21/21 08:09 Vitamin B12 278 Folate 4.8 Medications Medications Current Medications Generic Name Dose Route Start Last Admin Trade Name Freq PRN Reason Stop Dose Admin Acetaminophen 650 mg 02/20/21 15:52 Acetaminophen 325 Mg Tablet PO Q6H PRN Headache/Pain Mild Scale (1-3) Al Hydroxide/Mg Hydroxide 30 ml 02/20/21 15:52 Magnesium Hydrox/Alum Hydrox 30 Ml Oral.Susp PO Q6H PRN Heartburn/Nausea Albuterol Sulfate 2 puff 02/20/21 15:52 Albuterol Sulfate 90 Mcg 8 Gm Inhaler INHALE Q4H PRN shortness of breath or wheezing Atorvastatin Calcium 20 mg 02/22/21 09:00 02/23/21 08:20 Atorvastatin Calcium 20 Mg Tablet PO 20 mg DAILY JOSE Administration Cariprazine 6 mg 02/21/21 09:00 02/23/21 08:20 Cariprazine Hcl 3 Mg Capsule PO 6 mg DAILY JOSE Administration Clonazepam 0.5 mg 02/20/21 15:52 02/23/21 12:08 Clonazepam 0.5 Mg Tablet PO 0.5 mg DAILY@1200 PRN Administration Anxiety Clonazepam 1 mg 02/20/21 21:00 02/23/21 20:12 Clonazepam 1 Mg Tablet PO 1 mg BID JOSE Administration Clonidine HCl 0.1 mg 02/23/21 15:00 02/23/21 20:09 Clonidine Hcl 0.1 Mg Tablet PO 0.1 mg TID JOSE Administration Protocol Gabapentin 300 mg 02/21/21 09:00 02/23/21 08:20 Gabapentin 300 Mg Capsule PO 300 mg DAILY JOSE Administration Gabapentin 200 mg 02/20/21 21:00 02/23/21 20:11 Gabapentin 100 Mg Capsule PO 200 mg BEDTIME JOSE Administration Hydroxyzine HCl 25 mg 02/20/21 15:52 Hydroxyzine Hcl 25 Mg Tablet PO BEDTIME PRN Anxiety [place] Carbonate 300 mg 02/22/21 21:00 02/23/21 20:11 [place] Carbonate 300 Mg Capsule PO 300 mg BEDTIME JOSE Administration Magnesium Hydroxide 30 ml 02/20/21 15:52 Milk Of Magnesia 30 Ml Oral.Susp PO DAILY PRN Constipation Mirtazapine 3.75 mg 02/23/21 21:00 02/23/21 20:10 Mirtazapine 7.5 Mg Tablet PO 3.75 mg BEDTIME JOSE Administration Nicotine 21 mg 02/21/21 09:00 02/23/21 08:25 Nicotine 21 Mg Patch.Td24 TRANSDERMA 21 mg DAILY JOSE Administration Pat Own Med ( 1 each 02/24/21 09:00 Adderall Xr 25 Mg) PO DAILY JOSE Omeprazole 20 mg 02/21/21 06:30 02/23/21 06:08 Omeprazole 20 Mg Capsule. PO 20 mg DAILY@0630 JOSE Administration Sertraline HCl 200 mg 02/21/21 09:00 02/23/21 08:20 Sertraline Hcl 100 Mg Tablet PO 200 mg DAILY JOSE Administration Sumatriptan Succinate 50 mg 02/20/21 15:52 02/23/21 17:22 Sumatriptan Succinate 50 Mg Tablet PO 50 mg DAILY MRX1 PRN Administration Migraine Headache Trazodone HCl 50 mg 02/20/21 15:52 02/22/21 20:18 Trazodone Hcl 50 Mg Tablet PO 50 mg BEDTIME PRN Administration Insomnia Trazodone HCl 50 mg 02/20/21 15:52 02/22/21 02:20 Trazodone Hcl 50 Mg Tablet PO 50 mg BEDTIME PRN Administration Insomnia Vitamin D 25 mcg 02/22/21 09:00 02/23/21 08:20 Cholecalciferol (Vitamin D3) 25 Mcg Tablet PO 25 mcg DAILY JOSE Administration Allergies Allergies Allergy/AdvReac Type Severity Reaction Status Date / Time SEASONAL ALLERGIES Allergy Intermediate RUNNY NOSE Uncoded 12/10/20 09:58 WATERY EYES Assessment & Plan Assessment & Plan (1) Suicidal ideation: Status: Acute Code(s): R45.851 - Suicidal ideations Assessment and Plan: Pt continues with SI, racing thoughts. Trial of [place] 300 mg HS (2) Borderline personality disorder: Status: Acute Code(s): F60.3 - Borderline personality disorder (3) Bipolar 2 disorder: Status: Acute Code(s): F31.81 - Bipolar II disorder Assessment and Plan: Reports racing thoughts, SI [place] 300 mg bid Titrate clonidine to tid dosing Remeron 3.75 mg HS to trial for insomnia (4) HLD (hyperlipidemia): Status: Acute Code(s): E78.5 - Hyperlipidemia, unspecified Assessment and Plan: Atorvastatin 20 mg daily Greater than 50% of the session was spent on counseling and/or coordination of care Reason for contiued inpatient stay Substantial Risk for: harm to self, inability to function, rapid decompensation and med/psych decompensation
[2021-02-24] MEDS: Omeprazole 20 MG CAPSULE.DR PO (04:32)
[2021-02-24 06:00] VITALS: BP 105/67; PULSE 65; TEMP 36.2
[2021-02-24 08:21] VITALS: BP 126/63; PULSE 71
[2021-02-24] MEDS: Cholecalciferol (Vitamin D3) 25 MCG TABLET PO (08:21)
[2021-02-24] MEDS: clonazePAM 1 MG TABLET PO ×2 (08:21→20:20)
[2021-02-24] MEDS: Atorvastatin Calcium 20 MG TABLET PO (08:21)
[2021-02-24] MEDS: cloNIDine HCL 0.1 MG TABLET PO ×3 (08:21→20:58)
[2021-02-24] MEDS: Sertraline HCL 100 MG TABLET 200 MG PO (08:21)
[2021-02-24] MEDS: Cariprazine HCl 3 MG CAPSULE 6 MG PO (08:22)
[2021-02-24] MEDS: Gabapentin 300 MG CAPSULE PO ×3 (08:22→20:19)
[2021-02-24] MEDS: clonazePAM 0.5 MG TABLET PO (11:45)
[2021-02-24 14:30] VITALS: BP 122/68; PULSE 87
--- NOTE | 2021-02-24 15:11 | HO.PSYCHPN ---
Subjective Subjective Date of Service: 02/24/21 Reason For Visit: s/p OD of Klonopin, Trazodone, Clonidine Subjective Notes: Conditional Voluntary Interim History: Patient depressed is somewhat flat feeling somewhat better than prior to admission when she had had increase in catastrophic thinking and did a medication ingestion. Patient feels supported by current outpatient providers limited other supports. Denies any current active self-harm Medication Compliance: Yes Mental Status Exam Mental Status Exam Patient Appearance: Appropriate Patient Orientation: Person, Place, Time and Situation Level of Consciousness: Alert Patient Behavior: Talkative, Cooperative and Good Eye Contact Mood Description: Depressed, Anxious and Flat Affect Description: Depressed and Flat Patient Cognition Impaired: No Ability to Follow Directions: Good Speech Pattern: Spontaneous Speech Memory Description: Intact Hallucinations: None Delusions: Not Present Thought Process: Rumination Thought Content: positive for Perseveration and positive for Suicidal Ideation Depressive Symptoms: Diff. Making Decisions, Difficulty Sleeping, Feelings of Worthlessness, Hopelessness, Isolating-Friends/Family, Feelings of Guilt, Unhappiness, Increased Fatigue, Thoughts of /Suicide, Low Self Esteem, Loss of Energy and Difficulty Concentrating Judgement: Fair Diagnostics Vital Signs (24Hr): Vital Signs - 24 hr 02/23/21 19:45 02/23/21 20:09 02/24/21 06:00 Temperature 97.1 F Pulse Rate 87 87 65 Blood Pressure 115/76 115/76 105/67 02/24/21 08:21 02/24/21 14:30 Temperature Pulse Rate 71 87 Blood Pressure 126/63 122/68 Body Mass Index 32.0 Labs Labs: Laboratory Results - last 48 hr 02/21/21 08:09 Vitamin B12 278 Folate 4.8 Medications Medications Current Medications Generic Name Dose Route Start Last Admin Trade Name Freq PRN Reason Stop Dose Admin Acetaminophen 650 mg 02/20/21 15:52 Acetaminophen 325 Mg Tablet PO Q6H PRN Headache/Pain Mild Scale (1-3) Al Hydroxide/Mg Hydroxide 30 ml 02/20/21 15:52 Magnesium Hydrox/Alum Hydrox 30 Ml Oral.Susp PO Q6H PRN Heartburn/Nausea Albuterol Sulfate 2 puff 02/20/21 15:52 Albuterol Sulfate 90 Mcg 8 Gm Inhaler INHALE Q4H PRN shortness of breath or wheezing Atorvastatin Calcium 20 mg 02/22/21 09:00 02/24/21 08:21 Atorvastatin Calcium 20 Mg Tablet PO 20 mg DAILY JOSE Administration Cariprazine 6 mg 02/21/21 09:00 02/24/21 08:22 Cariprazine Hcl 3 Mg Capsule PO 6 mg DAILY JOSE Administration Clonazepam 0.5 mg 02/20/21 15:52 02/24/21 11:45 Clonazepam 0.5 Mg Tablet PO 0.5 mg DAILY@1200 PRN Administration Anxiety Clonazepam 1 mg 02/20/21 21:00 02/24/21 08:21 Clonazepam 1 Mg Tablet PO 1 mg BID JOSE Administration Clonidine HCl 0.1 mg 02/23/21 15:00 02/24/21 14:30 Clonidine Hcl 0.1 Mg Tablet PO 0.1 mg TID JOSE Administration Protocol Gabapentin 300 mg 02/21/21 09:00 02/24/21 08:22 Gabapentin 300 Mg Capsule PO 300 mg DAILY JOSE Administration Gabapentin 300 mg 02/24/21 21:00 Gabapentin 300 Mg Capsule PO BEDTIME JOSE Hydroxyzine HCl 25 mg 02/20/21 15:52 Hydroxyzine Hcl 25 Mg Tablet PO BEDTIME PRN Anxiety [place] Carbonate 300 mg 02/22/21 21:00 02/23/21 20:11 [place] Carbonate 300 Mg Capsule PO 300 mg BEDTIME JOSE Administration Magnesium Hydroxide 30 ml 02/20/21 15:52 Milk Of Magnesia 30 Ml Oral.Susp PO DAILY PRN Constipation Mirtazapine 3.75 mg 02/23/21 21:00 02/23/21 20:10 Mirtazapine 7.5 Mg Tablet PO 3.75 mg BEDTIME JOSE Administration Nicotine 21 mg 02/21/21 09:00 02/23/21 08:25 Nicotine 21 Mg Patch.Td24 TRANSDERMA 21 mg DAILY JOSE Administration Pat Own Med ( 1 each 02/25/21 06:00 Adderall Xr 25mg) PO DAILY@0600 JOSE Omeprazole 20 mg 02/21/21 06:30 02/24/21 04:32 Omeprazole 20 Mg Capsule.Dr PO 20 mg DAILY@0630 JOSE Administration Sertraline HCl 200 mg 02/21/21 09:00 02/24/21 08:21 Sertraline Hcl 100 Mg Tablet PO 200 mg DAILY JOSE Administration Sumatriptan Succinate 50 mg 02/20/21 15:52 02/23/21 17:22 Sumatriptan Succinate 50 Mg Tablet PO 50 mg DAILY MRX1 PRN Administration Migraine Headache Trazodone HCl 50 mg 02/20/21 15:52 02/22/21 20:18 Trazodone Hcl 50 Mg Tablet PO 50 mg BEDTIME PRN Administration Insomnia Trazodone HCl 50 mg 02/20/21 15:52 02/22/21 02:20 Trazodone Hcl 50 Mg Tablet PO 50 mg BEDTIME PRN Administration Insomnia Vitamin D 25 mcg 02/22/21 09:00 02/24/21 08:21 Cholecalciferol (Vitamin D3) 25 Mcg Tablet PO 25 mcg DAILY JOSE Administration Allergies Allergies Allergy/AdvReac Type Severity Reaction Status Date / Time SEASONAL ALLERGIES Allergy Intermediate RUNNY NOSE Uncoded 12/10/20 09:58 WATERY EYES Assessment & Plan Assessment & Plan (1) Suicidal ideation: Status: Acute Code(s): R45.851 - Suicidal ideations Assessment and Plan: Pt continues with passive SI, racing thoughts anxiety Trial of [place] 300 mg HS continues (2) Borderline personality disorder: Status: Acute Code(s): F60.3 - Borderline personality disorder (3) Bipolar 2 disorder: Status: Acute Code(s): F31.81 - Bipolar II disorder Assessment and Plan: Mirtazapine started for PTSD anxiety and depression continue lithium monitor safety (4) HLD (hyperlipidemia): Status: Acute Code(s): E78.5 - Hyperlipidemia, unspecified Assessment and Plan: Atorvastatin 20 mg daily Greater than 50% of the session was spent on counseling and/or coordination of care Reason for contiued inpatient stay Substantial Risk for: harm to self and rapid decompensation
[2021-02-24 15:48] VITALS: BP 113/57; PULSE 88; TEMP 36.4
[2021-02-24] MEDS: Docusate Sodium 100 MG CAPSULE 200 MG PO (20:18)
[2021-02-24] MEDS: Lithium Carbonate 300 MG CAPSULE PO (20:19)
[2021-02-24] MEDS: Mirtazapine 7.5 MG TABLET 3.75 MG PO (20:19)
[2021-02-24] MEDS: Sennosides 8.6 MG TABLET 17.2 MG PO (20:20)
[2021-02-24 20:58] VITALS: BP 137/61; PULSE 79
[2021-02-25] MEDS: Omeprazole 20 MG CAPSULE.DR PO (05:27)
[2021-02-25 06:00] VITALS: BP 113/56; PULSE 76; RESP 16; TEMP 35.9; O2SAT 98
[2021-02-25] MEDS: clonazePAM 1 MG TABLET PO ×2 (08:02→20:44)
[2021-02-25 08:03] VITALS: BP 113/56; PULSE 76
[2021-02-25] MEDS: Cariprazine HCl 3 MG CAPSULE 6 MG PO (08:03)
[2021-02-25] MEDS: cloNIDine HCL 0.1 MG TABLET PO ×3 (08:03→20:43)
[2021-02-25] MEDS: Sertraline HCL 100 MG TABLET 200 MG PO (08:03)
[2021-02-25] MEDS: Gabapentin 300 MG CAPSULE PO ×2 (08:05→20:44)
[2021-02-25] MEDS: Atorvastatin Calcium 20 MG TABLET PO (08:54)
[2021-02-25] MEDS: Nicotine 21 MG PATCH.TD24 TRANSDERMA (08:54)
[2021-02-25] MEDS: clonazePAM 0.5 MG TABLET PO (12:09)
--- NOTE | 2021-02-25 14:38 | HO.PSYCHPN ---
Subjective Subjective Date of Service: 02/25/21 Reason For Visit: s/p OD of Klonopin, Trazodone, Clonidine Subjective Notes: Conditional Voluntary Interim History: Tolerating [place]. Will titrate to bid today. Pt reports no BM for 8 days. Reports she did have some charcoal in the ER s/p OD however not an entire container as she threw this out. Asks to just have laxatives prn. Pt reports no discomfort, bloating or feeling she needs to have a BM. Will order KUB. Discussed symptoms. Pt continues with racing thoughts with some calming with [place]. SI is ongoing. Discussed asking [facility] to help her to find her own apartment after discharge as she believes this will be a better situation than living with family Medication Compliance: Yes Side effects from medications: Yes (reports constipation-no BM for 8 days.) Attending Groups: Yes Review of Systems Gastrointestinal: Reports constipation Psychiatric: Reports abnormal sleep pattern (improved with Mirtazapine), Reports depression, Reports difficulty concentrating, Reports hopelessness, Reports irritability, Reports anhedonia and Reports suicidal ideation Mental Status Exam Mental Status Exam Patient Appearance: Appropriate Patient Orientation: Person, Place, Time and Situation Level of Consciousness: Alert Patient Behavior: Talkative Mood Description: Depressed and Anxious Affect Description: Flat Patient Cognition Impaired: No Ability to Follow Directions: Good Speech Pattern: Spontaneous Speech Memory Description: Intact Hallucinations: None Delusions: Present (bad thoughts) Thought Process: Racing, Distracted and Rumination Thought Content: positive for Racing, positive for Perseveration and positive for Suicidal Ideation Depressive Symptoms: Increased Anxiety, Insomnia, Diff. Making Decisions, Increased Irritability, Difficulty Sleeping, Loss of Int. in Activity, Feelings of Worthlessness, Hopelessness, Isolating-Friends/Family, Feelings of Guilt, Unhappiness, Increased Fatigue, Thoughts of /Suicide, Low Self Esteem, Loss of Energy and Difficulty Concentrating Abnormal Motor Activity Signs and Symptoms: Restlessness Judgement: Fair Diagnostics Vital Signs (24Hr): Vital Signs - 24 hr 02/24/21 15:48 02/24/21 20:58 02/25/21 06:00 Temperature 97.6 F 96.6 F L Pulse Rate 88 79 76 Respiratory Rate 16 Blood Pressure 113/57 L 137/61 113/56 L Pulse Oximetry 98 02/25/21 08:03 Temperature Pulse Rate 76 Respiratory Rate Blood Pressure 113/56 L Pulse Oximetry Body Mass Index 32.0 Medications Medications Current Medications Generic Name Dose Route Start Last Admin Trade Name Freq PRN Reason Stop Dose Admin Acetaminophen 650 mg 02/20/21 15:52 Acetaminophen 325 Mg Tablet PO Q6H PRN Headache/Pain Mild Scale (1-3) Al Hydroxide/Mg Hydroxide 30 ml 02/20/21 15:52 Magnesium Hydrox/Alum Hydrox 30 Ml Oral.Susp PO Q6H PRN Heartburn/Nausea Albuterol Sulfate 2 puff 02/20/21 15:52 Albuterol Sulfate 90 Mcg 8 Gm Inhaler INHALE Q4H PRN shortness of breath or wheezing Atorvastatin Calcium 20 mg 02/22/21 09:00 02/25/21 08:54 Atorvastatin Calcium 20 Mg Tablet PO 20 mg DAILY JOSE Administration Bisacodyl 10 mg 02/24/21 15:21 Bisacodyl 10 Mg Supp.Rect [place] DAILY PRN Constipation Cariprazine 6 mg 02/21/21 09:00 02/25/21 08:03 Cariprazine Hcl 3 Mg Capsule PO 6 mg DAILY JOSE Administration Clonazepam 0.5 mg 02/20/21 15:52 02/25/21 12:09 Clonazepam 0.5 Mg Tablet PO 0.5 mg DAILY@1200 PRN Administration Anxiety Clonazepam 1 mg 02/20/21 21:00 02/25/21 08:02 Clonazepam 1 Mg Tablet PO 1 mg BID JOSE Administration Clonidine HCl 0.1 mg 02/23/21 15:00 02/25/21 08:03 Clonidine Hcl 0.1 Mg Tablet PO 0.1 mg TID JOSE Administration Protocol Docusate Sodium 200 mg 02/24/21 21:00 02/24/21 20:18 Docusate Sodium 100 Mg Capsule PO 200 mg BEDTIME JOSE Administration Gabapentin 300 mg 02/21/21 09:00 02/25/21 08:05 Gabapentin 300 Mg Capsule PO 300 mg DAILY JOSE Administration Gabapentin 300 mg 02/24/21 21:00 02/24/21 20:19 Gabapentin 300 Mg Capsule PO 300 mg BEDTIME JOSE Administration Hydroxyzine HCl 25 mg 02/20/21 15:52 Hydroxyzine Hcl 25 Mg Tablet PO BEDTIME PRN Anxiety [place] Carbonate 300 mg 02/22/21 21:00 02/24/21 20:19 [place] Carbonate 300 Mg Capsule PO 300 mg BEDTIME JOSE Administration Magnesium Hydroxide 30 ml 02/20/21 15:52 Milk Of Magnesia 30 Ml Oral.Susp PO DAILY PRN Constipation Mirtazapine 3.75 mg 02/23/21 21:00 02/24/21 20:19 Mirtazapine 7.5 Mg Tablet PO 3.75 mg BEDTIME JOSE Administration Nicotine 21 mg 02/21/21 09:00 02/25/21 08:54 Nicotine 21 Mg Patch.Td24 TRANSDERMA 21 mg DAILY JOSE Administration Pat Own Med ( 1 each 02/25/21 06:00 02/25/21 05:44 Adderall Xr 25mg) PO 1 each DAILY@0600 JOSE Administration Omeprazole 20 mg 02/21/21 06:30 02/25/21 05:27 Omeprazole 20 Mg Capsule.Dr PO 20 mg DAILY@0630 JSOE Administration Senna 17.2 mg 02/24/21 21:00 02/24/21 20:20 Sennosides 8.6 Mg Tablet PO 17.2 mg BEDTIME JOSE Administration Sertraline HCl 200 mg 02/21/21 09:00 02/25/21 08:03 Sertraline Hcl 100 Mg Tablet PO 200 mg DAILY JOSE Administration Sumatriptan Succinate 50 mg 02/20/21 15:52 02/23/21 17:22 Sumatriptan Succinate 50 Mg Tablet PO 50 mg DAILY MRX1 PRN Administration Migraine Headache Trazodone HCl 50 mg 02/20/21 15:52 02/22/21 20:18 Trazodone Hcl 50 Mg Tablet PO 50 mg BEDTIME PRN Administration Insomnia Trazodone HCl 50 mg 02/20/21 15:52 02/22/21 02:20 Trazodone Hcl 50 Mg Tablet PO 50 mg BEDTIME PRN Administration Insomnia Vitamin D 25 mcg 02/22/21 09:00 02/25/21 08:54 Cholecalciferol (Vitamin D3) 25 Mcg Tablet PO Not Given DAILY JOSE Allergies Allergies Allergy/AdvReac Type Severity Reaction Status Date / Time SEASONAL ALLERGIES Allergy Intermediate RUNNY NOSE Uncoded 12/10/20 09:58 WATERY EYES Assessment & Plan Assessment & Plan (1) Suicidal ideation: Status: Acute Code(s): R45.851 - Suicidal ideations Assessment and Plan: Pt continues with SI, racing thoughts anxiety Increase [place] to 300 mg bid Reports no BM in 8 days-states she drank <6 oz charcoal in ER, throwing the remainder away. Asks to cancel all scheduled laxatives, keep prn, which we did. KUB ordered. (2) Borderline personality disorder: Status: Acute Code(s): F60.3 - Borderline personality disorder (3) Bipolar 2 disorder: Status: Acute Code(s): F31.81 - Bipolar II disorder Assessment and Plan: Mirtazapine started for PTSD anxiety depression and sleep continue lithium monitor safety (4) HLD (hyperlipidemia): Status: Acute Code(s): E78.5 - Hyperlipidemia, unspecified Assessment and Plan: Atorvastatin 20 mg daily Greater than 50% of the session was spent on counseling and/or coordination of care Reason for contiued inpatient stay Substantial Risk for: harm to self, inability to function, rapid decompensation and med/psych decompensation
[2021-02-25 14:40] VITALS: BP 121/70; PULSE 78
[2021-02-25] MEDS: SUMAtriptan succinate 50 MG TABLET PO (14:40)
[2021-02-25 16:34] VITALS: BP 119/56; PULSE 63; RESP 16; TEMP 36.2; O2SAT 98
[2021-02-25 20:43] VITALS: BP 106/63; PULSE 65
[2021-02-25] MEDS: Docusate Sodium 100 MG CAPSULE 200 MG PO (20:43)
[2021-02-25] MEDS: Mirtazapine 7.5 MG TABLET 3.75 MG PO (20:44)
[2021-02-25] MEDS: Lithium Carbonate 300 MG CAPSULE PO (20:45)
[2021-02-26] MEDS: Omeprazole 20 MG CAPSULE.DR PO (05:27)
[2021-02-26 06:00] VITALS: BP 123/66; PULSE 75; RESP 18; TEMP 35.7; O2SAT 98
[2021-02-26 07:00] VITALS: BMI 31.2
[2021-02-26 08:12] VITALS: BP 104/74; PULSE 58
[2021-02-26] MEDS: cloNIDine HCL 0.1 MG TABLET PO ×2 (08:12→14:48)
[2021-02-26] MEDS: Nicotine 21 MG PATCH.TD24 TRANSDERMA (08:12)
[2021-02-26] MEDS: clonazePAM 1 MG TABLET PO ×2 (08:13→20:01)
[2021-02-26] MEDS: Cholecalciferol (Vitamin D3) 25 MCG TABLET PO (08:13)
[2021-02-26] MEDS: Gabapentin 300 MG CAPSULE PO ×2 (08:13→20:01)
[2021-02-26] MEDS: Cariprazine HCl 3 MG CAPSULE 6 MG PO (08:13)
[2021-02-26] MEDS: Lithium Carbonate 300 MG CAPSULE PO ×2 (08:13→20:02)
[2021-02-26] MEDS: Sertraline HCL 100 MG TABLET 200 MG PO (08:14)
[2021-02-26] MEDS: Atorvastatin Calcium 20 MG TABLET PO (08:26)
[2021-02-26] MEDS: clonazePAM 0.5 MG TABLET PO (12:54)
[2021-02-26 14:48] VITALS: BP 117/63; PULSE 89
--- NOTE | 2021-02-26 16:19 | P.PNPSI_ITS ---
Subjective Subjective Date of Service: 02/26/21 Reason For Visit: s/p OD of Klonopin, Trazodone, Clonidine Subjective Notes: Conditional Voluntary Interim History: Continues with interrupted sleep, racing thoughts, SI. Increase Mirtazapine to 7.5 mg HS Working with DBT concepts. Using DBT concept cards. Reviewing [employer] skill book. Working in groups as well. Discussed her thoughts regarding living on her own after discharge-believes this will be a healthier plan for her. Medication Compliance: Yes Side effects from medications: No Attending Groups: Yes Review of Systems Review of Systems Yes all other systems are reviewed and are negative Reports behavioral changes Psychiatric: Reports abnormal sleep pattern, Reports anxiety, Reports behavioral changes, Reports depression, Reports difficulty concentrating, Reports hopelessness, Reports irritability, Reports anhedonia, Reports mood swings and Reports suicidal ideation Mental Status Exam Mental Status Exam Patient Appearance: Appropriate Patient Orientation: Person, Place, Time and Situation Level of Consciousness: Alert Patient Behavior: Talkative, Cooperative, Anxious and Good Eye Contact Mood Description: Depressed and Anxious Affect Description: Flat Patient Cognition Impaired: No Ability to Follow Directions: Good Speech Pattern: Spontaneous Speech Memory Description: Intact Hallucinations: None Delusions: Not Present Thought Process: Racing Thought Content: positive for Racing and positive for Suicidal Ideation Depressive Symptoms: Increased Anxiety, Insomnia, Increased Irritability, Difficulty Sleeping, Loss of Int. in Activity, Hopelessness, Unhappiness, Thoughts of /Suicide, Low Self Esteem, Loss of Energy and Difficulty Concentrating Judgement: Fair Diagnostics Vital Signs (24Hr): Vital Signs - 24 hr 02/25/21 16:34 02/25/21 20:43 02/26/21 06:00 Temperature 97.2 F 96.3 F L Pulse Rate 63 65 75 Respiratory Rate 16 18 Blood Pressure 119/56 L 106/63 123/66 Pulse Oximetry 98 98 02/26/21 08:12 02/26/21 14:48 Temperature Pulse Rate 58 89 Respiratory Rate Blood Pressure 104/74 117/63 Pulse Oximetry Body Mass Index 31.2 Imaging Radiology Impressions: ITS Impressions KUB X-Ray 02/25/21 16:02 IMPRESSION: No significant stool burden seen within the descending, sigmoid colon, or rectum. Medications Medications Current Medications Generic Name Dose Route Start Last Admin Trade Name Freq PRN Reason Stop Dose Admin Acetaminophen 650 mg 02/20/21 15:52 Acetaminophen 325 Mg Tablet PO Q6H PRN Headache/Pain Mild Scale (1-3) Al Hydroxide/Mg Hydroxide 30 ml 02/20/21 15:52 Magnesium Hydrox/Alum Hydrox 30 Ml Oral.Susp PO Q6H PRN Heartburn/Nausea Albuterol Sulfate 2 puff 02/20/21 15:52 Albuterol Sulfate 90 Mcg 8 Gm Inhaler INHALE Q4H PRN shortness of breath or wheezing Atorvastatin Calcium 20 mg 02/22/21 09:00 02/26/21 08:26 Atorvastatin Calcium 20 Mg Tablet PO 20 mg DAILY JOSE Administration Bisacodyl 10 mg 02/24/21 15:21 Bisacodyl 10 Mg Supp.Rect [place] DAILY PRN Constipation Cariprazine 6 mg 02/21/21 09:00 02/26/21 08:13 Cariprazine Hcl 3 Mg Capsule PO 6 mg DAILY JOSE Administration Clonazepam 0.5 mg 02/20/21 15:52 02/26/21 12:54 Clonazepam 0.5 Mg Tablet PO 0.5 mg DAILY@1200 PRN Administration Anxiety Clonazepam 1 mg 02/20/21 21:00 02/26/21 08:13 Clonazepam 1 Mg Tablet PO 1 mg BID JOSE Administration Clonidine HCl 0.1 mg 02/23/21 15:00 02/26/21 14:48 Clonidine Hcl 0.1 Mg Tablet PO 0.1 mg TID JOSE Administration Protocol Docusate Sodium 200 mg 02/24/21 21:00 02/25/21 20:43 Docusate Sodium 100 Mg Capsule PO 200 mg BEDTIME JOSE Administration Gabapentin 300 mg 02/21/21 09:00 02/26/21 08:13 Gabapentin 300 Mg Capsule PO 300 mg DAILY JOSE Administration Gabapentin 300 mg 02/24/21 21:00 02/25/21 20:44 Gabapentin 300 Mg Capsule PO 300 mg BEDTIME JOSE Administration Hydroxyzine HCl 25 mg 02/20/21 15:52 Hydroxyzine Hcl 25 Mg Tablet PO BEDTIME PRN Anxiety [place] Carbonate 300 mg 02/25/21 21:00 02/26/21 08:13 [place] Carbonate 300 Mg Capsule PO 300 mg BID JOSE Administration Magnesium Hydroxide 30 ml 02/20/21 15:52 Milk Of Magnesia 30 Ml Oral.Susp PO DAILY PRN Constipation Mirtazapine 7.5 mg 02/26/21 21:00 Mirtazapine 7.5 Mg Tablet PO BEDTIME JOSE Nicotine mg 02/21/21 09:00 02/26/21 08:12 Nicotine 21 Mg Patch.Td24 TRANSDERMA 21 mg DAILY JOSE Administration Pat Own Med ( 1 each 02/25/21 06:00 02/26/21 05:28 Adderall Xr 25mg) PO 1 each DAILY@0600 JOSE Administration Omeprazole 20 mg 02/21/21 06:30 02/26/21 05:27 Omeprazole 20 Mg Capsule.Dr PO 20 mg DAILY@0630 JOSE Administration Sertraline HCl 200 mg 02/21/21 09:00 02/26/21 08:14 Sertraline Hcl 100 Mg Tablet PO 200 mg DAILY JOSE Administration Sumatriptan Succinate 50 mg 02/20/21 15:52 02/25/21 14:40 Sumatriptan Succinate 50 Mg Tablet PO 50 mg DAILY MRX1 PRN Administration Migraine Headache Trazodone HCl 50 mg 02/20/21 15:52 02/22/21 20:18 Trazodone Hcl 50 Mg Tablet PO 50 mg BEDTIME PRN Administration Insomnia Trazodone HCl 50 mg 02/20/21 15:52 02/22/21 02:20 Trazodone Hcl 50 Mg Tablet PO 50 mg BEDTIME PRN Administration Insomnia Vitamin D 25 mcg 02/22/21 09:00 02/26/21 08:13 Cholecalciferol (Vitamin D3) 25 Mcg Tablet PO 25 mcg DAILY JOSE Administration Allergies Allergies Allergy/AdvReac Type Severity Reaction Status Date / Time SEASONAL ALLERGIES Allergy Intermediate RUNNY NOSE Uncoded 12/10/20 09:58 WATERY EYES Assessment & Plan Assessment & Plan (1) Suicidal ideation: Status: Acute Code(s): R45.851 - Suicidal ideations Assessment and Plan: Pt continues with SI, racing thoughts anxiety [place] 300 mg bid tolerated Increase Mirtazapine to 7.5 mg HS Reports no BM in 8 days-states she drank <6 oz charcoal in ER, throwing the remainder away. Asks to cancel all scheduled laxatives, keep prn, which we did. KUB unremarkable. (2) Borderline personality disorder: Status: Acute Code(s): F60.3 - Borderline personality disorder (3) Bipolar 2 disorder: Status: Acute Code(s): F31.81 - Bipolar II disorder Assessment and Plan: Mirtazapine started for PTSD anxiety depression and sleep continue lithium monitor safety (4) HLD (hyperlipidemia): Status: Acute Code(s): E78.5 - Hyperlipidemia, unspecified Assessment and Plan: Atorvastatin 20 mg daily Greater than 50% of the session was spent on counseling and/or coordination of care Reason for contiued inpatient stay Substantial Risk for: harm to self, inability to function and rapid decompensation
[2021-02-26 18:00] VITALS: BP 102/56; PULSE 60; TEMP 36.3
[2021-02-26 20:01] VITALS: BP 112/53; PULSE 62
[2021-02-26] MEDS: Docusate Sodium 100 MG CAPSULE 200 MG PO (20:02)
[2021-02-26] MEDS: Mirtazapine 7.5 MG TABLET PO (20:02)
[2021-02-27 04:30] VITALS: BP 93/54; PULSE 59; RESP 16; TEMP 36.3; O2SAT 98
[2021-02-27] MEDS: Omeprazole 20 MG CAPSULE.DR PO (06:09)
[2021-02-27] MEDS: Cariprazine HCl 3 MG CAPSULE 6 MG PO (08:05)
[2021-02-27] MEDS: Nicotine 21 MG PATCH.TD24 TRANSDERMA (08:05)
[2021-02-27] MEDS: Sertraline HCL 100 MG TABLET 200 MG PO (08:05)
[2021-02-27] MEDS: Gabapentin 300 MG CAPSULE PO ×2 (08:06→19:52)
[2021-02-27 08:07] VITALS: BP 122/60; PULSE 66
[2021-02-27] MEDS: Lithium Carbonate 300 MG CAPSULE PO ×2 (08:07→19:53)
[2021-02-27] MEDS: Atorvastatin Calcium 20 MG TABLET PO (08:07)
[2021-02-27] MEDS: Cholecalciferol (Vitamin D3) 25 MCG TABLET PO (08:07)
[2021-02-27] MEDS: cloNIDine HCL 0.1 MG TABLET PO ×3 (08:07→19:52)
[2021-02-27] MEDS: clonazePAM 1 MG TABLET PO ×2 (08:07→19:53)
[2021-02-27] MEDS: clonazePAM 0.5 MG TABLET PO (11:31)
--- NOTE | 2021-02-27 13:34 | P.PNPSI_ITS ---
Subjective Subjective Date of Service: 02/27/21 Reason For Visit: s/p OD of Klonopin, Trazodone, Clonidine Subjective Notes: Conditional Voluntary Interim History: Working on DBT. Tolerating regime. Keeping connected with her out pt team Talking with her out pt residential support team about a move post discharge. Medication Compliance: Yes Side effects from medications: No Attending Groups: Yes Review of Systems Review of Systems Yes all other systems are reviewed and are negative Psychiatric: Reports anxiety, Reports depression and Reports suicidal ideation Mental Status Exam Mental Status Exam Patient Appearance: Appropriate Patient Orientation: Person, Place, Time and Situation Level of Consciousness: Alert Patient Behavior: Talkative Mood Description: Depressed and Anxious Affect Description: Flat Patient Cognition Impaired: No Ability to Follow Directions: Good Speech Pattern: Spontaneous Speech Memory Description: Intact Hallucinations: None Thought Process: Racing (some improvement) Thought Content: positive for Racing (some improvement) and positive for Suicidal Ideation Depressive Symptoms: Increased Anxiety, Increased Irritability, Difficulty Sle eping, Hopelessness, Unhappiness, Thoughts of /Suicide and Low Self Esteem Judgement: Fair Diagnostics Vital Signs (24Hr): Vital Signs - 24 hr 02/26/21 14:48 02/26/21 18:00 02/26/21 20:01 Temperature 97.3 F Pulse Rate 89 60 62 Respiratory Rate Blood Pressure 117/63 102/56 L 112/53 L Pulse Oximetry 02/27/21 04:30 02/27/21 08:07 Temperature 97.3 F Pulse Rate 59 66 Respiratory Rate 16 Blood Pressure 93/54 L 122/60 Pulse Oximetry 98 Body Mass Index 31.2 Imaging Radiology Impressions: ITS Impressions KUB X-Ray 02/25/21 16:02 IMPRESSION: No significant stool burden seen within the descending, sigmoid colon, or rectum. Medications Medications Current Medications Generic Name Dose Route Start Last Admin Trade Name Freq PRN Reason Stop Dose Admin Acetaminophen 650 mg 02/20/21 15:52 Acetaminophen 325 Mg Tablet PO Q6H PRN Headache/Pain Mild Scale (1-3) Al Hydroxide/Mg Hydroxide 30 ml 02/20/21 15:52 Magnesium Hydrox/Alum Hydrox 30 Ml Oral.Susp PO Q6H PRN Heartburn/Nausea Albuterol Sulfate 2 puff 02/20/21 15:52 Albuterol Sulfate 90 Mcg 8 Gm Inhaler INHALE Q4H PRN shortness of breath or wheezing Atorvastatin Calcium 20 mg 02/22/21 09:00 02/27/21 08:07 Atorvastatin Calcium 20 Mg Tablet PO 20 mg DAILY JOSE Administration Bisacodyl 10 mg 02/24/21 15:21 Bisacodyl 10 Mg Supp.Rect [place] DAILY PRN Constipation Cariprazine 6 mg 02/21/21 09:00 02/27/21 08:05 Cariprazine Hcl 3 Mg Capsule PO 6 mg DAILY JOSE Administration Clonazepam 0.5 mg 02/20/21 15:52 02/27/21 11:31 Clonazepam 0.5 Mg Tablet PO 0.5 mg DAILY@1200 PRN Administration Anxiety Clonazepam 1 mg 02/20/21 21:00 02/27/21 08:07 Clonazepam 1 Mg Tablet PO 1 mg BID JOSE Administration Clonidine HCl 0.1 mg 02/23/21 15:00 02/27/21 08:07 Clonidine Hcl 0.1 Mg Tablet PO 0.1 mg TID JOSE Administration Protocol Docusate Sodium 200 mg 02/24/21 21:00 02/26/21 20:02 Docusate Sodium 100 Mg Capsule PO 200 mg BEDTIME JOSE Administration Gabapentin 300 mg 02/21/21 09:00 02/27/21 08:06 Gabapentin 300 Mg Capsule PO 300 mg DAILY JOSE Administration Gabapentin 300 mg 02/24/21 21:00 02/26/21 20:01 Gabapentin 300 Mg Capsule PO 300 mg BEDTIME JOSE Administration Hydroxyzine HCl 25 mg 02/20/21 15:52 Hydroxyzine Hcl 25 Mg Tablet PO BEDTIME PRN Anxiety [place] Carbonate 300 mg 02/25/21 21:00 02/27/21 08:07 [place] Carbonate 300 Mg Capsule PO 300 mg BID JOSE Administration Magnesium Hydroxide 30 ml 02/20/21 15:52 Milk Of Magnesia 30 Ml Oral.Susp PO DAILY PRN Constipation Mirtazapine 7.5 mg 02/26/21 21:00 02/26/21 20:02 Mirtazapine 7.5 Mg Tablet PO 7.5 mg BEDTIME JOSE Administration Nicotine 21 mg 02/21/21 09:00 02/27/21 08:05 Nicotine 21 Mg Patch.Td24 TRANSDERMA 21 mg DAILY JOSE Administration Pat Own Med ( 1 each 02/25/21 06:00 02/27/21 06:09 Adderall Xr 25mg) PO 1 each DAILY@0600 JOSE Administration Omeprazole 20 mg 02/21/21 06:30 02/27/21 06:09 Omeprazole 20 Mg Capsule. PO 20 mg DAILY@0630 JOSE Administration Sertraline HCl 200 mg 02/21/21 09:00 02/27/21 08:05 Sertraline Hcl 100 Mg Tablet PO 200 mg DAILY JOSE Administration Sumatriptan Succinate 50 mg 02/20/21 15:52 02/25/21 14:40 Sumatriptan Succinate 50 Mg Tablet PO 50 mg DAILY MRX1 PRN Administration Migraine Headache Trazodone HCl 50 mg 02/20/21 15:52 02/22/21 20:18 Trazodone Hcl 50 Mg Tablet PO 50 mg BEDTIME PRN Administration Insomnia Trazodone HCl 50 mg 02/20/21 15:52 02/22/21 02:20 Trazodone Hcl 50 Mg Tablet PO 50 mg BEDTIME PRN Administration Insomnia Vitamin D 25 mcg 02/22/21 09:00 02/27/21 08:07 Cholecalciferol (Vitamin D3) 25 Mcg Tablet PO 25 mcg DAILY JOSE Administration Allergies Allergies Allergy/AdvReac Type Severity Reaction Status Date / Time SEASONAL ALLERGIES Allergy Intermediate RUNNY NOSE Uncoded 12/10/20 09:58 WATERY EYES Assessment & Plan Assessment & Plan (1) Suicidal ideation: Status: Acute Code(s): R45.851 - Suicidal ideations Assessment and Plan: Pt continues with SI, racing thoughts anxiety [place] 300 mg bid tolerated Mirtazapine to 7.5 mg HS tolerated [place] TSH BMP for 03/02. (2) Borderline personality disorder: Status: Acute Code(s): F60.3 - Borderline personality disorder (3) Bipolar 2 disorder: Status: Acute Code(s): F31.81 - Bipolar II disorder (4) HLD (hyperlipidemia): Status: Acute Code(s): E78.5 - Hyperlipidemia, unspecified Assessment and Plan: Atorvastatin 20 mg daily Greater than 50% of the session was spent on counseling and/or coordination of care Reason for contiued inpatient stay Substantial Risk for: harm to self, inability to function and rapid decompensation
[2021-02-27 14:56] VITALS: BP 100/62; PULSE 75
[2021-02-27 17:13] VITALS: BP 109/64; PULSE 64; TEMP 36.6
[2021-02-27 19:45] VITALS: BP 114/60; PULSE 73
[2021-02-27 19:52] VITALS: BP 114/60; PULSE 73
[2021-02-27] MEDS: Docusate Sodium 100 MG CAPSULE 200 MG PO (19:52)
[2021-02-27] MEDS: Mirtazapine 7.5 MG TABLET PO (19:52)
[2021-02-28] MEDS: Omeprazole 20 MG CAPSULE.DR PO (05:53)
[2021-02-28] MEDS: Amphetamine Mixed Salts 20 MG TABLET PO (06:24)
[2021-02-28 06:43] VITALS: BP 107/69; PULSE 82; TEMP 36.6
[2021-02-28] MEDS: Nicotine 21 MG PATCH.TD24 TRANSDERMA (08:01)
[2021-02-28 08:02] VITALS: BP 110/60; PULSE 63
[2021-02-28] MEDS: Cariprazine HCl 3 MG CAPSULE 6 MG PO (08:02)
[2021-02-28] MEDS: Lithium Carbonate 300 MG CAPSULE PO ×2 (08:02→21:20)
[2021-02-28] MEDS: clonazePAM 1 MG TABLET PO ×2 (08:02→21:19)
[2021-02-28] MEDS: Sertraline HCL 100 MG TABLET 200 MG PO (08:02)
[2021-02-28] MEDS: Atorvastatin Calcium 20 MG TABLET PO (08:02)
[2021-02-28] MEDS: cloNIDine HCL 0.1 MG TABLET PO ×3 (08:02→21:19)
[2021-02-28] MEDS: Gabapentin 300 MG CAPSULE PO ×2 (08:03→21:20)
[2021-02-28] MEDS: Cholecalciferol (Vitamin D3) 25 MCG TABLET PO (08:03)
[2021-02-28] MEDS: clonazePAM 0.5 MG TABLET PO (11:43)
[2021-02-28] MEDS: SUMAtriptan succinate 50 MG TABLET PO (15:06)
[2021-02-28 15:35] VITALS: BP 110/72; PULSE 68
--- NOTE | 2021-02-28 16:09 | P.PNPSI_ITS ---
Subjective Subjective Date of Service: 02/28/21 Reason For Visit: s/p OD of Klonopin, Trazodone, Clonidine Subjective Notes: Conditional Voluntary Interim History: Tammy was able to handle the upset of her Adderall XR not being available and she took IR this morning. She is aware that Li is gradually being titrated. Level is to be checked 03/02/21 and adjustments can be made at that time if needed. Medication Compliance: Yes Side effects from medications: No Attending Groups: Yes Review of Systems Acute medical concerns: No Medical Review of Systems: unchanged Mental Status Exam Mental Status Exam Patient Appearance: Appropriate Patient Orientation: Person, Place, Time and Situation Level of Consciousness: Alert Patient Behavior: Talkative Mood Description: Depressed and Anxious Affect Description: Flat Patient Cognition Impaired: No Ability to Follow Directions: Good Speech Pattern: Spontaneous Speech Memory Description: Intact Hallucinations: None Thought Process: Racing (some improvement) Thought Content: positive for Racing (some improvement), negative for Suicidal Ideation and negative for Homicidal Ideation Depressive Symptoms: Increased Anxiety, Increased Irritability, Difficulty Sleeping, Hopelessness, Unhappiness, Thoughts of /Suicide and Low Self Esteem Judgement: Fair Diagnostics Vital Signs (24Hr): Vital Signs - 24 hr 02/27/21 17:13 02/27/21 19:45 02/27/21 19:52 Temperature 98 F Pulse Rate 64 73 73 Blood Pressure 109/64 114/60 114/60 02/28/21 06:43 02/28/21 08:02 02/28/21 15:35 Temperature 97.9 F Pulse Rate 82 63 68 Blood Pressure 107/69 110/60 110/72 Body Mass Index 31.2 Imaging Radiology Impressions: ITS Impressions KUB X-Ray 02/25/21 16:02 IMPRESSION: No significant stool burden seen within the descending, sigmoid colon, or rectum. Medications Medications Current Medications Generic Name Dose Route Start Last Admin Trade Name Freq PRN Reason Stop Dose Admin Acetaminophen 650 mg 02/20/21 15:52 Acetaminophen 325 Mg Tablet PO Q6H PRN Headache/Pain Mild Scale (1-3) Al Hydroxide/Mg Hydroxide 30 ml 02/20/21 15:52 Magnesium Hydrox/Alum Hydrox 30 Ml Oral.Susp PO Q6H PRN Heartburn/Nausea Albuterol Sulfate 2 puff 02/20/21 15:52 Albuterol Sulfate 90 Mcg 8 Gm Inhaler INHALE Q4H PRN shortness of breath or wheezing Atorvastatin Calcium 20 mg 02/22/21 09:00 02/28/21 08:02 Atorvastatin Calcium 20 Mg Tablet PO 20 mg DAILY JOSE Administration Bisacodyl 10 mg 02/24/21 15:21 Bisacodyl 10 Mg Supp.Rect [place] DAILY PRN Constipation Cariprazine 6 mg 02/21/21 09:00 02/28/21 08:02 Cariprazine Hcl 3 Mg Capsule PO 6 mg DAILY JOSE Administration Clonazepam 0.5 mg 02/20/21 15:52 02/28/21 11:43 Clonazepam 0.5 Mg Tablet PO 0.5 mg DAILY@1200 PRN Administration Anxiety Clonazepam 1 mg 02/20/21 21:00 02/28/21 08:02 Clonazepam 1 Mg Tablet PO 1 mg BID JOSE Administration Clonidine HCl 0.1 mg 02/23/21 15:00 02/28/21 15:35 Clonidine Hcl 0.1 Mg Tablet PO 0.1 mg TID JOSE Administration Protocol Docusate Sodium 200 mg 02/24/21 21:00 02/27/21 19:52 Docusate Sodium 100 Mg Capsule PO 200 mg BEDTIME JOSE Administration Gabapentin 300 mg 02/21/21 09:00 02/28/21 08:03 Gabapentin 300 Mg Capsule PO 300 mg DAILY JOSE Administration Gabapentin 300 mg 02/24/21 21:00 02/27/21 19:52 Gabapentin 300 Mg Capsule PO 300 mg BEDTIME JOSE Administration Hydroxyzine HCl 25 mg 02/20/21 15:52 Hydroxyzine Hcl 25 Mg Tablet PO BEDTIME PRN Anxiety [place] Carbonate 300 mg 02/25/21 21:00 02/28/21 08:02 [place] Carbonate 300 Mg Capsule PO 300 mg BID JOSE Administration Magnesium Hydroxide 30 ml 02/20/21 15:52 Milk Of Magnesia 30 Ml Oral.Susp PO DAILY PRN Constipation Mirtazapine 7.5 mg 02/26/21 21:00 02/27/21 19:52 Mirtazapine 7.5 Mg Tablet PO 7.5 mg BEDTIME JOSE Administration Nicotine 21 mg 02/21/21 09:00 02/28/21 08:01 Nicotine 21 Mg Patch.Td24 TRANSDERMA 21 mg DAILY JOSE Administration Pat Own Med ( 1 each 02/25/21 06:00 02/28/21 09:53 Adderall Xr 25mg) PO Not Given DAILY@0600 [facility] Omeprazole 20 mg 02/21/21 06:30 02/28/21 05:53 Omeprazole 20 Mg Capsule.Dr PO 20 mg DAILY@0630 JOSE Administration Sertraline HCl 200 mg 02/21/21 09:00 02/28/21 08:02 Sertraline Hcl 100 Mg Tablet PO 200 mg DAILY JOSE Administration Sumatriptan Succinate 50 mg 02/20/21 15:52 02/28/21 15:06 Sumatriptan Succinate 50 Mg Tablet PO 50 mg DAILY MRX1 PRN Administration Migraine Headache Trazodone HCl 50 mg 02/20/21 15:52 02/22/21 20:18 Trazodone Hcl 50 Mg Tablet PO 50 mg BEDTIME PRN Administration Insomnia Trazodone HCl 50 mg 02/20/21 15:52 02/22/21 02:20 Trazodone Hcl 50 Mg Tablet PO 50 mg BEDTIME PRN Administration Insomnia Vitamin D 25 mcg 02/22/21 09:00 02/28/21 08:03 Cholecalciferol (Vitamin D3) 25 Mcg Tablet PO 25 mcg DAILY JOSE Administration Allergies Allergies Allergy/AdvReac Type Severity Reaction Status Date / Time SEASONAL ALLERGIES Allergy Intermediate RUNNY NOSE Uncoded 12/10/20 09:58 WATERY EYES Assessment & Plan Assessment & Plan (1) Suicidal ideation: Status: Acute Code(s): R45.851 - Suicidal ideations (2) Borderline personality disorder: Status: Acute Code(s): F60.3 - Borderline personality disorder (3) Bipolar 2 disorder: Status: Acute Code(s): F31.81 - Bipolar II disorder (4) HLD (hyperlipidemia): Status: Acute Code(s): E78.5 - Hyperlipidemia, unspecified Assessment and Plan: Pt continues with SI, racing thoughts anxiety [place] 300 mg bid tolerated Mirtazapine to 7.5 mg HS tolerated [place] TSH BMP for 03/02. Atorvastatin 20 mg daily No change to current treatment plan Greater than 50% of the session was spent on counseling and/or coordination of care Reason for contiued inpatient stay Substantial Risk for: inability to function
[2021-02-28 18:00] VITALS: BP 109/54; PULSE 55; RESP 18; TEMP 36.4; O2SAT 97
[2021-02-28 21:19] VITALS: BP 97/64; PULSE 63
[2021-02-28] MEDS: Mirtazapine 7.5 MG TABLET PO (21:20)
[2021-02-28] MEDS: Docusate Sodium 100 MG CAPSULE 200 MG PO (21:20)
[2021-03-01] MEDS: Omeprazole 20 MG CAPSULE.DR PO (05:20)
[2021-03-01 05:22] VITALS: BP 106/56; PULSE 70; RESP 18; TEMP 35.7; O2SAT 98
[2021-03-01] MEDS: Sertraline HCL 100 MG TABLET 200 MG PO (08:11)
[2021-03-01] MEDS: Lithium Carbonate 300 MG CAPSULE PO ×2 (08:11→21:10)
[2021-03-01] MEDS: Nicotine 21 MG PATCH.TD24 TRANSDERMA (08:11)
[2021-03-01] MEDS: Cariprazine HCl 3 MG CAPSULE 6 MG PO (08:11)
[2021-03-01] MEDS: Cholecalciferol (Vitamin D3) 25 MCG TABLET PO (08:11)
[2021-03-01] MEDS: Gabapentin 300 MG CAPSULE PO ×2 (08:11→21:10)
[2021-03-01] MEDS: Atorvastatin Calcium 20 MG TABLET PO (08:11)
[2021-03-01] MEDS: clonazePAM 1 MG TABLET PO ×2 (08:11→21:10)
[2021-03-01 09:01] VITALS: BP 121/77; PULSE 80
[2021-03-01] MEDS: cloNIDine HCL 0.1 MG TABLET PO ×2 (09:01→14:52)
[2021-03-01] MEDS: clonazePAM 0.5 MG TABLET PO (12:39)
[2021-03-01 14:52] VITALS: BP 117/76; PULSE 87
--- NOTE | 2021-03-01 17:00 | P.PNPSI_ITS ---
Subjective Subjective Date of Service: 03/01/21 Reason For Visit: s/p OD of Klonopin, Trazodone, Clonidine Subjective Notes: Conditional Voluntary Interim History: Tammy was able to manage a frustration about not being able to use the TV room. This demonstrates use of distress tolerance skills. She is otherwise unchanged Medication Compliance: Yes Side effects from medications: No Attending Groups: No Mental Status Exam Mental Status Exam Patient Appearance: Appropriate Patient Orientation: Person, Place, Time and Situation Level of Consciousness: Alert Patient Behavior: Talkative Mood Description: Depressed and Anxious Affect Description: Flat Patient Cognition Impaired: No Ability to Follow Directions: Good Speech Pattern: Spontaneous Speech Memory Description: Intact Hallucinations: None Thought Process: Racing (some improvement) Thought Content: positive for Racing (some improvement), negative for Suicidal Ideation and negative for Homicidal Ideation Depressive Symptoms: Increased Anxiety, Increased Irritability, Difficulty Sleeping, Hopelessness, Unhappiness, Thoughts of /Suicide and Low Self Esteem Judgement: Fair Diagnostics Vital Signs (24Hr): Vital Signs - 24 hr 02/28/21 18:00 02/28/21 21:19 03/01/21 05:22 Temperature 97.6 F 96.3 F L Pulse Rate 55 63 70 Respiratory Rate 18 18 Blood Pressure 109/54 L 97/64 106/56 L Pulse Oximetry 97 98 03/01/21 09:01 03/01/21 14:52 Temperature Pulse Rate 80 87 Respiratory Rate Blood Pressure 121/77 117/76 Pulse Oximetry Body Mass Index 31.2 Imaging Radiology Impressions: ITS Impressions KUB X-Ray 02/25/21 16:02 IMPRESSION: No significant stool burden seen within the descending, sigmoid colon, or rectum. Medications Medications Current Medications Generic Name Dose Route Start Last Admin Trade Name Freq PRN Reason Stop Dose Admin Acetaminophen 650 mg 02/20/21 15:52 Acetaminophen 325 Mg Tablet PO Q6H PRN Headache/Pain Mild Scale (1-3) Al Hydroxide/Mg Hydroxide 30 ml 02/20/21 15:52 Magnesium Hydrox/Alum Hydrox 30 Ml Oral.Susp PO Q6H PRN Heartburn/Nausea Albuterol Sulfate 2 puff 02/20/21 15:52 Albuterol Sulfate 90 Mcg 8 Gm Inhaler INHALE Q4H PRN shortness of breath or wheezing Atorvastatin Calcium 20 mg 02/22/21 09:00 03/01/21 08:11 Atorvastatin Calcium 20 Mg Tablet PO 20 mg DAILY JOSE Administration Bisacodyl 10 mg 02/24/21 15:21 Bisacodyl 10 Mg Supp.Rect SD DAILY PRN Constipation Cariprazine 6 mg 02/21/21 09:00 03/01/21 08:11 Cariprazine Hcl 3 Mg Capsule PO 6 mg DAILY JOSE Administration Clonazepam 0.5 mg 02/20/21 15:52 03/01/21 12:39 Clonazepam 0.5 Mg Tablet PO 0.5 mg DAILY@1200 PRN Administration Anxiety Clonazepam 1 mg 02/20/21 21:00 03/01/21 08:11 Clonazepam 1 Mg Tablet PO 1 mg BID JOSE Administration Clonidine HCl 0.1 mg 02/23/21 15:00 03/01/21 14:52 Clonidine Hcl 0.1 Mg Tablet PO 0.1 mg TID JOSE Administration Protocol Docusate Sodium 200 mg 02/24/21 21:00 02/28/21 21:20 Docusate Sodium 100 Mg Capsule PO 200 mg BEDTIME JOSE Administration Gabapentin 300 mg 02/21/21 09:00 03/01/21 08:11 Gabapentin 300 Mg Capsule PO 300 mg DAILY JOSE Administration Gabapentin 300 mg 02/24/21 21:00 02/28/21 21:20 Gabapentin 300 Mg Capsule PO 300 mg BEDTIME JOSE Administration Hydroxyzine HCl 25 mg 02/20/21 15:52 Hydroxyzine Hcl 25 Mg Tablet PO BEDTIME PRN Anxiety [place] Carbonate 300 mg 02/25/21 21:00 03/01/21 08:11 [place] Carbonate 300 Mg Capsule PO 300 mg BID JOSE Administration Magnesium Hydroxide 30 ml 02/20/21 15:52 Milk Of Magnesia 30 Ml Oral.Susp PO DAILY PRN Constipation Mirtazapine 7.5 mg 02/26/21 21:00 02/28/21 21:20 Mirtazapine 7.5 Mg Tablet PO 7.5 mg BEDTIME JOSE Administration Nicotine 21 mg 02/21/21 09:00 03/01/21 08:11 Nicotine 21 Mg Patch.Td24 TRANSDERMA 21 mg DAILY JOSE Administration Pat Own Med ( 1 each 02/25/21 06:00 03/01/21 05:21 Adderall Xr 25mg) PO 1 each DAILY@0600 JOSE Administration Omeprazole 20 mg 02/21/21 06:30 03/01/21 05:20 Omeprazole 20 Mg Capsule. PO 20 mg DAILY@0630 JOSE Administration Sertraline HCl 200 mg 02/21/21 09:00 03/01/21 08:11 Sertraline Hcl 100 Mg Tablet PO 200 mg DAILY JOSE Administration Sumatriptan Succinate 50 mg 02/20/21 15:52 02/28/21 15:06 Sumatriptan Succinate 50 Mg Tablet PO 50 mg DAILY MRX1 PRN Administration Migraine Headache Trazodone HCl 50 mg 02/20/21 15:52 02/22/21 20:18 Trazodone Hcl 50 Mg Tablet PO 50 mg BEDTIME PRN Administration Insomnia Trazodone HCl 50 mg 02/20/21 15:52 02/22/21 02:20 Trazodone Hcl 50 Mg Tablet PO 50 mg BEDTIME PRN Administration Insomnia Vitamin D 25 mcg 02/22/21 09:00 03/01/21 08:11 Cholecalciferol (Vitamin D3) 25 Mcg Tablet PO 25 mcg DAILY JOSE Administration Allergies Allergies Allergy/AdvReac Type Severity Reaction Status Date / Time SEASONAL ALLERGIES Allergy Intermediate RUNNY NOSE Uncoded 12/10/20 09:58 WATERY EYES Assessment & Plan Assessment & Plan (1) Suicidal ideation: Status: Acute Code(s): R45.851 - Suicidal ideations (2) Borderline personality disorder: Status: Acute Code(s): F60.3 - Borderline personality disorder (3) Bipolar 2 disorder: Status: Acute Code(s): F31.81 - Bipolar II disorder (4) HLD (hyperlipidemia): Status: Acute Code(s): E78.5 - Hyperlipidemia, unspecified Assessment and Plan: Pt continues with SI, racing thoughts anxiety [place] 300 mg bid tolerated Mirtazapine to 7.5 mg HS tolerated [place] TSH BMP for 03/02. Atorvastatin 20 mg daily No change to current treatment plan Greater than 50% of the session was spent on counseling and/or coordination of care Patient educated on: diagnosis and medication risk/benefits Informed Consent: further education needed Reason for contiued inpatient stay Substantial Risk for: inability to function and rapid decompensation
[2021-03-01 17:31] VITALS: BP 109/62; PULSE 68; RESP 18; TEMP 36.3; O2SAT 97
[2021-03-01] MEDS: Docusate Sodium 100 MG CAPSULE 200 MG PO (21:09)
[2021-03-01] MEDS: Mirtazapine 7.5 MG TABLET PO (21:09)
[2021-03-01 21:19] VITALS: BP 93/51; PULSE 52
[2021-03-02 05:05] VITALS: BP 111/55; PULSE 78; RESP 16; TEMP 36.1; O2SAT 98
[2021-03-02] MEDS: Omeprazole 20 MG CAPSULE.DR PO (05:50)
[2021-03-02 07:48] LABS: Lithium 0.65 mmol/L (0.60-1.20)
[2021-03-02 07:54] LABS: Anion Gap 15 (12-20); Blood Urea Nitrogen 10 mg/dL (9-16); Calcium 9.9 mg/dL (8.4-10.2); Carbon Dioxide 22 mmol/L (22-29); Chloride 104 mmol/L (96-108); Creatinine Clr Calc Pharmacy 107.1; Estimated Glomerular Filt Rate > 60; Glucose Random 85 mg/dL (60-115); Potassium 4.9 mmol/L (3.3-5.1); Sodium 136 mmol/L (135-145)
[2021-03-02 08:15] LABS: Thyroid Stimulating Hormone 2.06 uIU/mL (0.32-4.0)
[2021-03-02] MEDS: Cholecalciferol (Vitamin D3) 25 MCG TABLET PO (08:17)
[2021-03-02] MEDS: Cariprazine HCl 3 MG CAPSULE 6 MG PO (08:17)
[2021-03-02] MEDS: Sertraline HCL 100 MG TABLET 200 MG PO (08:17)
[2021-03-02] MEDS: clonazePAM 1 MG TABLET PO ×2 (08:18→20:34)
[2021-03-02] MEDS: Nicotine 21 MG PATCH.TD24 TRANSDERMA (08:18)
[2021-03-02] MEDS: Lithium Carbonate 300 MG CAPSULE PO (08:18)
[2021-03-02] MEDS: Atorvastatin Calcium 20 MG TABLET PO (08:18)
[2021-03-02] MEDS: Gabapentin 300 MG CAPSULE PO ×2 (08:18→21:18)
[2021-03-02 08:19] VITALS: BP 122/79; PULSE 77
[2021-03-02] MEDS: cloNIDine HCL 0.1 MG TABLET PO ×3 (08:19→20:38)
[2021-03-02] MEDS: clonazePAM 0.5 MG TABLET PO ×2 (12:26)
--- NOTE | 2021-03-02 14:22 | P.PNPSI_ITS ---
Subjective Subjective Date of Service: 03/02/21 Reason For Visit: s/p OD of Klonopin, Trazodone, Clonidine Subjective Notes: Conditional Voluntary Interim History: Pt reports tolerance of [place] and relief of racing thoughts and suicidality. Level 0.65. She is ready for titration. Affect flat mood anergic-reports she has been working with DBT over the weekend and will ask OP team for a referral to [facility]. Difficult interaction with father of her children over the weekend-she states he believes she is on vacation while he has child guidance counselor responsibility. Pt ready to set a discharge date which she did with her certified social workers in health care today-03/04. Medication Compliance: Yes Side effects from medications: No Attending Groups: Yes Review of Systems Psychiatric: Reports anxiety, Reports depression and Reports suicidal ideation (denies) Mental Status Exam Mental Status Exam Patient Appearance: Appropriate Patient Orientation: Person, Place, Time and Situation Level of Consciousness: Alert Patient Behavior: Talkative, Cooperative and Good Eye Contact Mood Description: Depressed Affect Description: Flat Patient Cognition Impaired: No Ability to Follow Directions: Good Speech Pattern: Clear, Appropriate and Spontaneous Speech Memory Description: Intact Hallucinations: None Delusions: Not Present Thought Process: Intact and Goal Oriented Thought Content: positive for Intact, positive for Goal Oriented and positive for Suicidal Ideation (decreased per pt report.) Depressive Symptoms: Increased Anxiety, Diff. Making Decisions, Unhappiness, Increased Fatigue, Thoughts of /Suicide (decreasing) and Low Self Esteem Judgement: Good Diagnostics Vital Signs (24Hr): Vital Signs - 24 hr 03/01/21 14:52 03/01/21 17:31 03/01/21 21:19 Temperature 97.3 F Pulse Rate 87 68 52 Respiratory Rate 18 Blood Pressure 117/76 109/62 93/51 L Pulse Oximetry 97 03/02/21 05:05 03/02/21 08:19 Temperature 97.0 F Pulse Rate 78 77 Respiratory Rate 16 Blood Pressure 111/55 L 122/79 Pulse Oximetry 98 Body Mass Index 31.2 Labs Results: 03/02/21 07:20 Labs: Laboratory Results - last 48 hr 03/02/21 03/02/21 07:20 07:20 Sodium 136 Potassium 4.9 Chloride 104 Carbon Dioxide 22 Anion Gap 15 BUN 10 D Creatinine 0.72 Estim Creat Clear Calc 107.1 Estimated GFR > 60 Random Glucose 85 Calcium 9.9 D TSH 2.06 [place] 0.65 Imaging Radiology Impressions: ITS Impressions KUB X-Ray 02/25/21 16:02 IMPRESSION: No significant stool burden seen within the descending, sigmoid colon, or rectum. Medications Medications Current Medications Generic Name Dose Route Start Last Admin Trade Name Freq PRN Reason Stop Dose Admin Acetaminophen 650 mg 02/20/21 15:52 Acetaminophen 325 Mg Tablet PO Q6H PRN Headache/Pain Mild Scale (1-3) Al Hydroxide/Mg Hydroxide 30 ml 02/20/21 15:52 Magnesium Hydrox/Alum Hydrox 30 Ml Oral.Susp PO Q6H PRN Heartburn/Nausea Albuterol Sulfate 2 puff 02/20/21 15:52 Albuterol Sulfate 90 Mcg 8 Gm Inhaler INHALE Q4H PRN shortness of breath or wheezing Atorvastatin Calcium 20 mg 02/22/21 09:00 03/02/21 08:18 Atorvastatin Calcium 20 Mg Tablet PO 20 mg DAILY JOSE Administration Bisacodyl 10 mg 02/24/21 15:21 Bisacodyl 10 Mg Supp.Rect [place] DAILY PRN Constipation Cariprazine 6 mg 02/21/21 09:00 03/02/21 08:17 Cariprazine Hcl 3 Mg Capsule PO 6 mg DAILY JOSE Administration Clonazepam 1 mg 03/02/21 21:00 Clonazepam 1 Mg Tablet PO BID JOSE Clonazepam 0.5 mg 03/03/21 12:00 Clonazepam 0.5 Mg Tablet PO 1200 PRN Anxiety Clonidine HCl 0.1 mg 02/23/21 15:00 03/02/21 08:19 Clonidine Hcl 0.1 Mg Tablet PO 0.1 mg TID JOSE Administration Protocol Docusate Sodium 200 mg 02/24/21 21:00 03/01/21 21:09 Docusate Sodium 100 Mg Capsule PO 200 mg BEDTIME JOSE Administration Gabapentin 300 mg 02/21/21 09:00 03/02/21 08:18 Gabapentin 300 Mg Capsule PO 300 mg DAILY JOSE Administration Gabapentin 300 mg 02/24/21 21:00 03/01/21 21:10 Gabapentin 300 Mg Capsule PO 300 mg BEDTIME JOSE Administration Hydroxyzine HCl 25 mg 02/20/21 15:52 Hydroxyzine Hcl 25 Mg Tablet PO BEDTIME PRN Anxiety [place] Carbonate 600 mg 03/02/21 21:00 [place] Carbonate 300 Mg Capsule PO BEDTIME JOSE [place] Carbonate 300 mg 03/03/21 09:00 [place] Carbonate 300 Mg Capsule PO DAILY JOSE Magnesium Hydroxide 30 ml 02/20/21 15:52 Milk Of Magnesia 30 Ml Oral.Susp PO DAILY PRN Constipation Mirtazapine 7.5 mg 02/26/21 21:00 03/01/21 21:09 Mirtazapine 7.5 Mg Tablet PO 7.5 mg BEDTIME JOSE Administration Nicotine 21 mg 02/21/21 09:00 03/02/21 08:18 Nicotine 21 Mg Patch.Td24 TRANSDERMA 21 mg DAILY JOSE Administration Pat Own Med ( 1 each 02/25/21 06:00 03/02/21 05:50 Adderall Xr 25mg) PO 1 each DAILY@0600 JOSE Administration Omeprazole 20 mg 02/21/21 06:30 03/02/21 05:50 Omeprazole 20 Mg Capsule.Dr PO 20 mg DAILY@0630 JOSE Administration Sertraline HCl 200 mg 02/21/21 09:00 03/02/21 08:17 Sertraline Hcl 100 Mg Tablet PO 200 mg DAILY JOSE Administration Sumatriptan Succinate 50 mg 02/20/21 15:52 02/28/21 15:06 Sumatriptan Succinate 50 Mg Tablet PO 50 mg DAILY MRX1 PRN Administration Migraine Headache Trazodone HCl 50 mg 02/20/21 15:52 02/22/21 20:18 Trazodone Hcl 50 Mg Tablet PO 50 mg BEDTIME PRN Administration Insomnia Trazodone HCl 50 mg 02/20/21 15:52 02/22/21 02:20 Trazodone Hcl 50 Mg Tablet PO 50 mg BEDTIME PRN Administration Insomnia Vitamin D 25 mcg 02/22/21 09:00 03/02/21 08:17 Cholecalciferol (Vitamin D3) 25 Mcg Tablet PO 25 mcg DAILY JOSE Administration Allergies Allergies Allergy/AdvReac Type Severity Reaction Status Date / Time SEASONAL ALLERGIES Allergy Intermediate RUNNY NOSE Uncoded 12/10/20 09:58 WATERY EYES Assessment & Plan Assessment & Plan (1) Suicidal ideation: Status: Acute Code(s): R45.851 - Suicidal ideations (2) Borderline personality disorder: Status: Acute Code(s): F60.3 - Borderline personality disorder (3) Bipolar 2 disorder: Status: Acute Code(s): F31.81 - Bipolar II disorder (4) HLD (hyperlipidemia): Status: Acute Code(s): E78.5 - Hyperlipidemia, unspecified Assessment and Plan: SI decreased, racing thoughts anxiety decreased as well per pt report Increase [place] to 300 mg a.m. 600 mg hs. Level today 0.65. Mirtazapine to 7.5 mg HS tolerated Atorvastatin 20 mg daily Greater than 50% of the session was spent on counseling and/or coordination of care Reason for contiued inpatient stay Substantial Risk for: harm to self, inability to function and rapid decompensation
[2021-03-02 14:42] VITALS: BP 117/78; PULSE 95
[2021-03-02 18:00] VITALS: BP 92/53; PULSE 61; RESP 18; TEMP 36.2; O2SAT 95
[2021-03-02] MEDS: Lithium Carbonate 300 MG CAPSULE 600 MG PO (20:34)
[2021-03-02] MEDS: Mirtazapine 7.5 MG TABLET PO (20:35)
[2021-03-02 20:38] VITALS: BP 102/70; PULSE 82
[2021-03-02] MEDS: Docusate Sodium 100 MG CAPSULE 200 MG PO (21:18)
[2021-03-03] VITALS (8 sets, daily range): BP systolic 105–117; BP diastolic 50–68; PULSE 69–80; RESP 16–18; TEMP 36.1–36.6; O2SAT 97–98
[2021-03-03] MEDS: Omeprazole 20 MG CAPSULE.DR PO (06:35)
--- NOTE | 2021-03-03 07:20 | PC.NURSE ---
Patient was up at around 0515, had VSs taken by the other RN, got real hot tea and went back to bed. It was at around 0615, patient got out of her room and started yelling that TW was races, that TW started giving medication to other people but not her. I have been waiting in my room and you did not give me my scheduled Adderall. It is scheduled at 0600 and it is now [id number] but you did not give me my medication yet . Patient was walking back to her room in an angry mood saying that I need to know her name. I'll write it down to complain . She races to me because I am White . This TW offered to give her medication and explain that TW was the only person giving out medication now at that moment but patient told TW and other staff that she did not want to take medication from TW Patient added She did not like me. She gave medication to other people. I observed her . She did not like me from last time I was here. She races to me . If I do not have Adderall, she already give me my omeprazole in my room . Patient slammed the door, trying to pull the fire alarm box on the wall in the xiong near her room. Patient did not want to take medication from TW after the third offer until one of the other nurse was staying in the medication window area. Patient took her Adderal with her Omeprazole and went straight to her room, being quiet since then.
[2021-03-03] MEDS: Nicotine 21 MG PATCH.TD24 TRANSDERMA (08:18)
[2021-03-03] MEDS: Sertraline HCL 100 MG TABLET 200 MG PO (08:19)
[2021-03-03] MEDS: cloNIDine HCL 0.1 MG TABLET PO ×3 (08:19→20:22)
[2021-03-03] MEDS: Gabapentin 300 MG CAPSULE PO ×2 (08:20→20:24)
[2021-03-03] MEDS: Cholecalciferol (Vitamin D3) 25 MCG TABLET PO (08:20)
[2021-03-03] MEDS: Atorvastatin Calcium 20 MG TABLET PO (08:20)
[2021-03-03] MEDS: Cariprazine HCl 3 MG CAPSULE 6 MG PO (08:20)
[2021-03-03] MEDS: Lithium Carbonate 300 MG CAPSULE PO (08:20)
[2021-03-03] MEDS: clonazePAM 1 MG TABLET PO ×2 (08:21→20:22)
[2021-03-03] MEDS: clonazePAM 0.5 MG TABLET PO (12:14)
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
[2021-03-03] MEDS: Docusate Sodium 100 MG CAPSULE 200 MG PO (20:23)
[2021-03-03] MEDS: Lithium Carbonate 300 MG CAPSULE 600 MG PO (20:24)
[2021-03-03] MEDS: Mirtazapine 7.5 MG TABLET PO (20:24)
[2021-03-04] MEDS: Omeprazole 20 MG CAPSULE.DR PO (05:25)
[2021-03-04 05:30] VITALS: BP 101/65; PULSE 69; RESP 16; TEMP 36.5; O2SAT 98
[2021-03-04] MEDS: Nicotine 21 MG PATCH.TD24 TRANSDERMA (08:11)
[2021-03-04] MEDS: Sertraline HCL 100 MG TABLET 200 MG PO (08:11)
[2021-03-04 08:12] VITALS: BP 121/79; PULSE 79
[2021-03-04] MEDS: cloNIDine HCL 0.1 MG TABLET PO (08:12)
[2021-03-04] MEDS: Cholecalciferol (Vitamin D3) 25 MCG TABLET PO (08:12)
[2021-03-04] MEDS: Atorvastatin Calcium 20 MG TABLET PO (08:12)
[2021-03-04] MEDS: clonazePAM 1 MG TABLET PO (08:12)
[2021-03-04] MEDS: Lithium Carbonate 300 MG CAPSULE PO (08:12)
[2021-03-04] MEDS: Gabapentin 300 MG CAPSULE PO (08:12)
[2021-03-04] MEDS: Cariprazine HCl 3 MG CAPSULE 6 MG PO (08:12)
[2021-03-04 08:16] VITALS: BP 121/79; PULSE 79; RESP 18; TEMP 36.5; O2SAT 98
[2021-03-04] MEDS: clonazePAM 0.5 MG TABLET PO (11:36)
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
--- NOTE | 2021-03-14 12:11 | P.EN_ITS ---
Event Note Date of Service: 03/14/21 Event Note: spoke with patient who said she just ran out of lithium and is ask ing for refill. Company Dancer called pharmacist who explained that insurance did not approve script for 600mg at bedtime since they erroneously thought it was a too soon reflill script; pharmacist says this can happen when dose is not written on just one script. Company Dancer gave verbal refill script and pharmacist said he would push it through insurance. magazine writer called pt to inform her and she said she'll clam picker script or call unit back if any further trouble.
--- NOTE | 2021-03-14 12:11 | PM.EVENT ---
Event Note Date of Service: 03/14/21 Event Note: spoke with patient who said she just ran out of lithium and is asking for refill. Balance Staff Inspector called pharmacist who explained that insurance did not approve script for 600mg at bedtime since they erroneously thought it was a too soon reflill script; pharmacist says this can happen when dose is not written on just one script. Balance Staff Inspector gave verbal refill script and pharmacist said he would push it through insurance. editorial writer called pt to inform her and she said she'll tack picker script or call unit back if any further trouble.
== END 2021-03-04 12:05 | disposition home or self-care (01) | DRG 885 ==
PROVIDERS: Admitting Provider Psychiatry & Neurology Psychiatry; PCP Student in an Organized Health Care Education/Training Program; Visit Provider Clinical Nurse Specialist Psychiatric/Mental Health, Adult
DX: F31.81 Bipolar II disorder (principal); R45.851 Suicidal ideations; F60.3 Borderline personality disorder; F17.210 Nicotine dependence, cigarettes, uncomplicated; Z71.6 Tobacco abuse counseling; Z79.51 Long term (current) use of inhaled steroids; Z79.899 Other long term (current) drug therapy
CPT/HCPCS: 36415; 74018; 80048; 80061; 80178; 82306; 82607; 82746; 83036; 84443

== ENCOUNTER 2021-03-04 17:29 | Emergency (ER) | payer MEDICARE, MEDICAID, SELFPAY ==
[2021-03-04 18:17] VITALS: BP 121/78; PULSE 84; RESP 18; TEMP 36.1; O2SAT 96; BMI 33.0
[2021-03-04 18:25] VITALS: BP 121/78; PULSE 84; RESP 18; TEMP 36.1; O2SAT 96
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
[2021-03-04 19:17] LABS: Appearance Urine CLEAR; Color Urine YELLOW; Glucose Urine UA NEG (NEG); Leukocyte Esterase Urine NEG (NEG); Nitrite Urine NEG (NEG); PH 8.5 (5.0-8.0); Specific Gravity - Urine 1.015 (1.005-1.025); Urine Blood NEG (NEG); Urine Ketones NEG (NEG); Urine Protein NEG (NEG-TRACE)
[2021-03-04 19:27] LABS: COVID-19 Test Negative (Negative)
[2021-03-04 19:35] LABS: Amphetamine Screen Urine POSITIVE (Not Detect); Barbiturates, Urine Not Detected (Not Detect); Benzodiazepines Screen Urine POSITIVE (Not Detect); Cannabinoid Screen Urine POSITIVE (Not Detect); Cocaine Screen Urine Not Detected (Not Detect); Opiate Screen Urine Not Detected (Not Detect); Phencyclidine Screen Urine Not Detected (Not Detect)
[2021-03-04 20:42] VITALS: BP 98/59; PULSE 70
[2021-03-04] MEDS: cloNIDine HCL 0.1 MG TABLET PO (20:42)
[2021-03-04] MEDS: Lithium Carbonate 300 MG CAPSULE 600 MG PO (20:42)
[2021-03-04] MEDS: traZODone HCL 50 MG TABLET PO (20:42)
[2021-03-04] MEDS: Docusate Sodium 100 MG CAPSULE 200 MG PO (20:46)
[2021-03-04] MEDS: clonazePAM 1 MG TABLET PO (20:46)
[2021-03-04] MEDS: Mirtazapine 7.5 MG TABLET PO (20:46)
[2021-03-04] MEDS: Gabapentin 300 MG CAPSULE PO (20:46)
[2021-03-04 20:51] VITALS: BP 98/59; PULSE 70; RESP 16; TEMP 36.4; O2SAT 95
[2021-03-04] MEDS: Budesonide 180 MCG AER.POW.BA 1 PUFF INHALE (21:01)
[2021-03-04] MEDS: Fluticasone Propionate Nasal 16 GM SPRAY 1 SPRAY NOSTRIL-B (21:02)
--- NOTE | 2021-03-04 22:53 | PC.NURSE ---
Care Team completed assessment, disposition is voluntary inpatient bed search, patient and provider aware.
[2021-03-05 04:39] VITALS: BP 108/63; PULSE 66; RESP 16; TEMP 36.7; O2SAT 98
[2021-03-05] MEDS: Omeprazole 20 MG CAPSULE.DR PO (06:01)
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
== END 2021-03-05 09:00 | disposition home or self-care (01) ==
PROVIDERS: Nurse Practitioner Family; Emergency Provider Emergency Medicine; PCP Student in an Organized Health Care Education/Training Program
DX: F33.1 Major depressive disorder, recurrent, moderate (principal); F60.3 Borderline personality disorder; R45.851 Suicidal ideations; F43.11 Post-traumatic stress disorder, acute; F17.210 Nicotine dependence, cigarettes, uncomplicated; Z71.6 Tobacco abuse counseling; Z20.822 Contact with and (suspected) exposure to COVID-19; Z91.5 Personal history of self-harm; Z79.899 Other long term (current) drug therapy
CPT/HCPCS: 36415; 80307; 81003; 87635; 99285

== ENCOUNTER 2021-04-16 08:11 | Outpatient (REF) | payer MEDICARE, MEDICAID, SELFPAY ==
[2021-04-16 09:12] LABS: MANUAL DIFF FLAG NO
[2021-04-16 09:14] LABS: Basophils Absolute Auto 0.1 X10*3/uL (0.0-0.2); Basophils Percent Auto 0.8 % (0-2); Eosinophils Absolute Auto 0.5 X10*3/uL (0.0-0.4); Eosinophils Percent Auto 3.6 % (0-4); Hematocrit 39.5 % (37-47); Imm Gran Abs Auto 0.08 X10*3/uL (0.00-0.03); Imm Gran Pct Auto 0.6 % (0.0-0.4); Lymphocytes Absolute Auto 3.2 X10*3/uL (1.2-4.9); Mean Corpuscular HGB Conc 32.9 g/dl (31.0-35.0); Mean Corpuscular Hemoglobin 30.5 pg (27.0-33.0); Mean Corpuscular Volume 92.7 fL (80-98); Mean Platelet Volume 9.6 fL (9.4-12.3); Monocytes Absolute Auto 1.1 X10*3/uL (0.1-1.2); Monocytes Percent Auto 7.6 % (2-11); Neutrophils Absolute Auto 8.9 X10*3/uL (2.0-8.3); Neutrophils Percent Auto 64.4 % (45-73); Platelet Count 569 X10*3/uL (160-400); Red Blood Count 4.26 X10*6/uL (4.20-5.50); Red Cell Distribution Width 17.4 % (11.0-16.0); White Blood Count 13.9 X10*3/uL (4.8-10.8)
[2021-04-16 09:27] LABS: Lithium 0.88 mmol/L (0.60-1.20)
[2021-04-16 09:34] LABS: Blood Urea Nitrogen 8 mg/dL (9-16); Calcium 9.8 mg/dL (8.4-10.2); Cholesterol 214 mg/dL; Estimated Glomerular Filt Rate > 60; Glucose Random 98 mg/dL (60-115); HDL Cholesterol 49 mg/dL; LDL Cholesterol Calculated 136 mg/dl; Triglycerides 145 mg/dL
[2021-04-16 09:44] LABS: Anion Gap 13 (12-20); Carbon Dioxide 23 mmol/L (22-29); Chloride 107 mmol/L (96-108); Potassium 4.6 mmol/L (3.3-5.1); Sodium 138 mmol/L (135-145)
== END 2021-04-16 08:12 | disposition home or self-care (01) ==
LOC: HO.LAB 08:11
PROVIDERS: PCP Student in an Organized Health Care Education/Training Program; Visit Provider Clinical Nurse Specialist Psychiatric/Mental Health, Adult
DX: Z79.899 Other long term (current) drug therapy (principal)
CPT/HCPCS: 36415; 80048; 80061; 80178; 84443; 85025; 86850; 86900; 86901

== ENCOUNTER 2021-10-06 09:11 | Emergency (ER) | payer MEDICARE, MEDICAID, SELFPAY ==
--- NOTE | ~2021-10-06 | XR_ITS ---
EXAMINATION: XR CHEST CLINICAL INFORMATION: Productive cough x1 week COMPARISON: Chest 01/26/2021 TECHNIQUE: Frontal view of the chest was obtained. FINDINGS: The lungs are well-expanded with platelike atelectasis right midlung. Rest of the lungs are clear. The heart size and pulmonary vascularity is normal. No gross bony abnormality seen. XR/XR chest 1V IMPRESSION: Platelike atelectasis right midlung.
[2021-10-06 09:41] VITALS: BP 128/70; PULSE 80; RESP 16; TEMP 35.9; O2SAT 96; BMI 34.2
[2021-10-06 10:19] LABS: COVID-19 Test Negative (Negative)
[2021-10-06] MEDS: predniSONE 20 MG TABLET 60 MG PO (10:51)
--- NOTE | 2021-10-06 10:59 | ED.URI ---
HPI - URI/Sore Throat General Chief Complaint: Upper Respiratory Symptoms Stated Complaint: sob, cough, head pain Time Seen by Provider: 10/06/21 10:39 Source: patient Mode of arrival: ambulatory Limitations: no limitations History of Present Illness HPI Narrative: 36-year-old female with a past medical history of mood disorder, PTSD, borderline personality disorder, polysubstance abuse, heavy smoker and asthma presenting to the ED with complaints of a week of intermittent headaches, rhinorrhea/nasal congestion/sinus pain without up productive cough with yellow-colored sputum with wheezing. She reports she is not using any of her albuterol medications at this time. Denies any fevers, chills, dizziness, neck pain/stiffness, ear pain, sore throat, trouble swallowing or breathing, chest pain, shortness of breath, dyspnea on exertion, orthopnea, nausea/vomiting/diarrhea, abdominal pain, palpitations, lower extremity edema, calf tenderness, recent travel or sick contacts or any other symptoms complaints or concerns at this time. MD elicited complaint: cough, rhinorrhea, nasal congestion, sinus pain and other (Headaches) Pertinent past history: asthma Onset (ago): week(s) (One) Consistency: constant Severity: moderate Description of mucous: clear, watery and yellow Able to tolerate fluids by mouth: Yes Exacerbating factors: deep breaths Relieving factors: nothing Associated symptoms: headache, rhinorrhea, nasal congestion and cough Treatments prior to arrival: none Related Data Previous Rx's Medication Instructions Recorded albuterol sulfate 90 mcg/actuation 2 puff INHALATION Q4H PRN 30 Days 03/04/21 aerosol inhaler (Ventolin HFA) #3 g atorvastatin 20 mg tablet 20 mg PO DAILY #30 tab 03/04/21 budesonide 180 mcg/actuation 1 inh INHALATION BID #1 ea 03/04/21 breath activated powder inhaler (Pulmicort Flexhaler) cariprazine 6 mg capsule (Vraylar) 6 mg PO DAILY 30 Days #30 cap 03/04/21 cholecalciferol (vitamin D3) 25 25 mcg PO DAILY #30 tab 03/04/21 mcg (1,000 unit) tablet clonazepam 0.5 mg tablet (Klonopin) 0.5 mg PO 1200 #30 tab 03/04/21 clonazepam 1 mg tablet 1 mg PO BID #60 tab 03/04/21 clonidine HCl 0.1 mg tablet 0.1 mg PO TID #90 tab 03/04/21 dextroamphetamine-amphetamine ER 25 mg PO QAM 1 Days #30 cap 03/04/21 25 mg 24hr capsule,extend release docusate sodium 100 mg capsule 200 mg PO BEDTIME #60 cap 03/04/21 fluticasone propionate 50 1 spray INTRANASAL Q12H #16 g 03/04/21 mcg/actuation nasal spray,suspension (Flonase Allergy Relief) gabapentin 300 mg capsule 300 mg PO BID #60 cap 03/04/21 lithium carbonate 300 mg capsule 300 mg PO DAILY #30 cap 03/04/21 lithium carbonate 300 mg capsule 600 mg PO BEDTIME #60 cap 03/04/21 mirtazapine 7.5 mg tablet 7.5 mg PO BEDTIME #30 tab 03/04/21 nicotine 21 mg/24 hr daily 21 mg TRANSDERMAL DAILY #30 ea 03/04/21 transdermal patch pantoprazole 40 mg tablet,delayed 40 mg PO DAILY 1 Days #30 tab 03/04/21 release sertraline 100 mg tablet 200 mg PO DAILY 30 Days #60 tab 03/04/21 sumatriptan succinate 50 mg tablet 50 mg PO DAILY MRX1 #60 tab 03/04/21 trazodone 50 mg tablet 50 mg PO BEDTIME PRN 30 Days #30 03/04/21 tab albuterol sulfate 0.63 mg/3 mL 0.63 mg (3 mL) INHALATION QID PRN 10/06/21 solution for nebulization #75 ml albuterol sulfate 90 mcg/actuation 1 inh INHALATION QID PRN #8.5 g 10/06/21 aerosol inhaler doxycycline hyclate 100 mg tablet 100 mg PO BID 10 Days #20 tab 10/06/21 doxycycline monohydrate 100 mg 100 mg PO BID 10 Days #20 cap 10/06/21 capsule nebulizers (AeroEclipse II #1 ea 10/06/21 Nebulizer) prednisone 20 mg tablet 40 mg PO DAILY 5 Days #10 tab 10/06/21 Allergies Allergy/AdvReac Type Severity Reaction Status Date / Time SEASONAL ALLERGIES Allergy Intermediate RUNNY NOSE Uncoded 12/10/20 09:58 WATERY EYES Review of Systems Review of Systems: Constitutional : denies med noncompliance, no history of PE or DVT, denies recent travel, No Fever, No Chills ENT/Mouth : Positive nasal congestion/rhinorrhea, No Hoarseness, No sore throat, No ear pain Eyes: No Redness, No Discharge, No Vision Changes Cardiovascular : No Chest Pain, No SOB, No Dyspnea on Exertion, No Edema, no pleurisy, Respiratory : Positive cough with sputum production and wheezing, no stridor, no hemoptysis, Gastrointestinal : No Nausea, No Vomiting, No Diarrhea, No abdominal Pain Genitourinary : No Dysuria, No Hematuria Musculoskeletal : No joint pain, No Myalgias Extremities: no extremity swelling /pain Skin : No rash, no itching, no swelling Neuro : No Weakness, No Numbness, No Headache Psych : No anxiety, depression Heme/Lymph: No Bruising, No Bleeding Endocrine : No Polyuria, No Polydipsia Yes all other systems are reviewed and are negative [facility] Past Medical History Attestation statement: The following information was validated with the patient. Medical History Anemia Anxiety Asthma B12 deficiency Bipolar disorder, unspecified Borderline personality disorder Bronchitis Cervical cancer Clonidine overdose COPD (chronic obstructive pulmonary disease) Depression Depression HLD (hyperlipidemia) Migraines Polysubstance overdose Posttraumatic stress disorder Smoker Surgical History History of total splenectomy Social History Social History Household Members: Family Housing: Apartment Do you presently have visiting nurse or other home services: No Alcohol intake: never Cigarette Packs Per Day: 1.5 Cigarettes Per Day: 30.0 Years Smoked: 15 Second Hand Smoke Exposure: Yes Substance Use Type: Marijuana Advance Directives: No service: No Current occupational status: disabled 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 Sexual orientation: Straight/Heterosexual Physical Exam Vital Signs: Vital Signs: Last Vital Signs Temp 96.7 F L 10/06/21 09:41 Pulse 73 10/06/21 11:06 Resp 16 10/06/21 09:41 BP 128/70 10/06/21 09:41 Pulse Ox 96 10/06/21 09:41 Body Mass Index 34.2 vital signs have been reviewed as normal and appeared to be correct. Blood pressure normal. Heart rate normal. Respiration rate normal. Temperature normal. Oxygen saturation normal. Appearance: Alert. Oriented X3. Mild acute respiratory distress. Head: Normal external exam. Normocephalic. Atraumatic. Eyes: PERRLA. EOMI. Conjunctiva and sclera normal. Eyelids normal. ENT: EAC normal. TM's Normal. Pharynx normal. Uvula midline. Moist mucous membranes. No trismus noted. No drooling noted. No muffled voice noted. Neck: Normal inspection. Neck supple. FROM. No adenopathy. Thyroid Normal. No meningeal signs. No neck mass noted. CVS: Normal heart rate and rhythm. Heart sound normal. Pulses normal throughout. No murmurs/rales/gallops. Respiratory: Mild acute respiratory distress with decreased breath sounds and inspiratory and expiatory wheezing throughout with painless inspiration. No rales/rhonchi noted. Chest is nontender. No accessory muscle usage noted. Abdomen: Soft and nontender. Bowel sounds normal in all 4 quadrants. No distention noted. No organomegaly noted. No visible injury noted. Back: No CVA tenderness. Full range of motion noted. No rashes/lesion/induration/fluctuance or signs of infection noted. Skin: Skin warm and dry. Normal skin color. Normal skin turgor. No rashes/lesions/lacerations noted. Extremities: No lower extremity edema. No calf tenderness is noted. Extremities exhibit normal range of motion. Extremities nontender. Neuro: Oriented X 3. No motor deficit. No sensory deficit. Reflexes normal. Normal steady gait. No focal neuro deficits noted. Vascular: + radial pulses/+ 2 distal pedal pulses/+2 dorsalis pedis b/l. Normal cap refill. No cyanosis noted to upper extremity nails and lower extremity toes nails. Course Course Course Narrative: 36-year-old female with a past medical history of mood disorder, PTSD, borderline personality disorder, polysubstance abuse, heavy smoker and asthma presenting to the ED with complaints of a week of intermittent headaches, rhinorrhea/nasal congestion/sinus pain without up productive cough with yellow-colored sputum with wheezing. She reports she is not using any of her albuterol medications at this time. Denies any fevers, chills, dizziness, neck pain/stiffness, ear pain, sore throat, trouble swallowing or breathing, chest pain, shortness of breath, dyspnea on exertion, orthopnea, nausea/vomiting/diarrhea, abdominal pain, palpitations, lower extremity edema, calf tenderness, recent travel or sick contacts or any other symptoms complaints or concerns at this time. COVID swab negative. Chest x-ray revealed platelike atelectasis right mid lung otherwise no other acute processes. Patient now status post 1 hour long breathing treatment and 60 mg of p.o. prednisone. Will DC home with antibiotics and a course of steroids along with albuterol inhaler and refill for her albuterol nebulizer and to return if any new or worsening symptoms and to follow up with primary care provider. Patient understands agrees with this plan. MDM - URI/Sore Throat Medical Records Attestation: I reviewed the patient's medical records. Lab Data Attestation: I reviewed the patient's lab results. Labs: Lab Results 10/06/21 Range/Units 09:45 COVID-19 ([facility]YA) Negative (Negative) COVID-19 Clin Com See Note Imaging Data Chest x-ray: Attestation: I personally reviewed and interpreted this imaging study as follows: Radiologist's impression: FINDINGS: The lungs are well-expanded with platelike atelectasis right midlung. Rest of the lungs are clear. The heart size and pulmonary vascularity is normal. No gross bony abnormality seen. XR/XR chest 1V IMPRESSION: Platelike atelectasis right midlung. Critical Care Time Critical Care Time Critical Care Time: Yes Total Critical Care Time: 60 Attestation: I personally attest to this time spent taking care of the patient Discharge Plan Discharge Clinical Impression: Acute bronchitis with asthma, Asthma exacerbation, Diffuse wheezing Patient Disposition: Home, Self-Care Instructions: Asthma (ED), Acute Bronchitis (ED) Prescriptions: New (DME) AeroEclipse II Nebulizer Misc See Rx Instructions .ROUTE .MEDSUPPLY Qty: 1 RF: 0 albuterol sulfate 0.63 mg/3 mL solution for nebulization 0.63 mg inhalation QID PRN (Reason: shortness of breath or wheezing) Qty: 75 RF: 0 albuterol sulfate 90 mcg/actuation HFA aerosol inhaler 1 inh inhalation QID PRN (Reason: shortness of breath or wheezing) Qty: 8.5 RF: 0 doxycycline monohydrate 100 mg capsule 100 mg PO BID 10 Days Qty: 20 RF: 0 prednisone 20 mg tablet 40 mg PO DAILY 5 Days Qty: 10 RF: 0 doxycycline hyclate 100 mg tablet 100 mg PO BID 10 Days Qty: 20 RF: 0 No Action nicotine 21 mg/24 hr Patch 24 Hour 21 mg transdermal DAILY Qty: 30 RF: 0 atorvastatin 20 mg Tablet 20 mg PO DAILY Qty: 30 RF: 0 lithium carbonate 300 mg Capsule 300 mg PO DAILY Qty: 30 RF: 0 lithium carbonate 300 mg Capsule 600 mg PO BEDTIME Qty: 60 RF: 0 mirtazapine 7.5 mg Tablet 7.5 mg PO BEDTIME Qty: 30 RF: 0 docusate sodium 100 mg Capsule 200 mg PO BEDTIME Qty: 60 RF: 0 cholecalciferol (vitamin D3) 25 mcg (1,000 unit) Tablet 25 mcg PO DAILY Qty: 30 RF: 0 clonazepam [Klonopin] 0.5 mg tablet 0.5 mg PO 1200 Qty: 30 RF: 0 gabapentin 300 mg capsule 300 mg PO BID Qty: 60 RF: 0 fluticasone propionate [Flonase Allergy Relief] 50 mcg/actuation spray,suspension 1 spray intranasal Q12H Qty: 16 RF: 0 clonidine HCl 0.1 mg tablet 0.1 mg PO TID Qty: 90 RF: 0 trazodone 50 mg Tablet 50 mg PO BEDTIME PRN (Reason: Insomnia) 30 Days Qty: 30 RF: 0 sertraline 100 mg Tablet 200 mg PO DAILY 30 Days Qty: 60 RF: 0 clonazepam 1 mg tablet 1 mg PO BID Qty: 60 RF: 0 sumatriptan succinate 50 mg tablet 50 mg PO DAILY MRX1 Qty: 60 RF: 0 pantoprazole 40 mg tablet,delayed release (DR/EC) 40 mg PO DAILY 1 Days Qty: 30 RF: 0 albuterol sulfate [Ventolin HFA] 90 mcg/actuation Hfa Aerosol Inhaler 2 puff inhalation Q4H PRN (Reason: shortness of breath or wheezing) 30 Days Qty: 3 RF: 0 dextroamphetamine-amphetamine 25 mg capsule,extended release 24hr 25 mg PO QAM 1 Days Qty: 30 RF: 0 Pulmicort Flexhaler 180 mcg/actuation aerosol powdr breath activated 1 inh inhalation BID Qty: 1 RF: 0 Vraylar 6 mg capsule 6 mg PO DAILY 30 Days Qty: 30 RF: 0 Referrals: Rhoda Pina MD [Primary Care Provider] - 2 days Print Language: Citizen Of [place]
[2021-10-06] MEDS: Albuterol Sulfate (0.083%) 2.5 MG/3 ML VIAL.NEB 10 MG INHALE (11:01)
[2021-10-06 11:06] VITALS: PULSE 73; O2SAT 98
[2021-10-06] MEDS: Albuterol Sulfate 90 MCG 8 GM INHALER 1 PUFF INHALE (11:40)
== END 2021-10-06 11:54 | disposition home or self-care (01) ==
PROVIDERS: Emergency Provider Emergency Medicine; PCP Student in an Organized Health Care Education/Training Program
DX: J20.9 Acute bronchitis, unspecified (principal); J45.901 Unspecified asthma with (acute) exacerbation; Z20.822 Contact with and (suspected) exposure to COVID-19; F17.200 Nicotine dependence, unspecified, uncomplicated; Z79.899 Other long term (current) drug therapy
CPT/HCPCS: 36415; 71045; 87635; 94640; 94644; 99283; 99291

== ENCOUNTER 2021-10-12 09:37 | Outpatient (REF) | payer MEDICARE, MEDICAID, SELFPAY ==
[2021-10-12 10:37] LABS: COVID-19 Test Negative (Negative)
== END 2021-10-12 09:38 | disposition home or self-care (01) ==
LOC: HO.LAB 09:37
PROVIDERS: PCP Student in an Organized Health Care Education/Training Program; Visit Provider Internal Medicine
DX: Z20.822 Contact with and (suspected) exposure to COVID-19 (principal)
CPT/HCPCS: 36415; 87635; C9803

== ENCOUNTER 2021-11-18 08:32 | Outpatient (REF) | payer MEDICARE, MEDICAID, SELFPAY ==
[2021-11-18 09:41] LABS: Lithium 0.75 mmol/L (0.60-1.20)
== END 2021-11-18 08:33 | disposition home or self-care (01) ==
LOC: HO.LAB 08:32
PROVIDERS: PCP Student in an Organized Health Care Education/Training Program; Visit Provider Clinical Nurse Specialist Psychiatric/Mental Health, Adult
DX: Z79.899 Other long term (current) drug therapy (principal)
CPT/HCPCS: 36415; 80178

== ENCOUNTER 2021-12-03 06:03 | Outpatient (REF) | payer MEDICARE, MEDICAID, SELFPAY ==
[2021-12-03 07:26] LABS: Basophils Absolute Auto 0.1 X10*3/uL (0.0-0.2); Basophils Percent Auto 0.9 % (0-2); Eosinophils Absolute Auto 0.9 X10*3/uL (0.0-0.4); Eosinophils Percent Auto 5.5 % (0-4); Hematocrit 43.5 % (37.0-47.0); Imm Gran Abs Auto 0.07 X10*3/uL (0.00-0.03); Imm Gran Pct Auto 0.4 % (0.0-0.4); Lymphocytes Absolute Auto 5.4 X10*3/uL (1.2-4.9); Lymphocytes Percent Auto 34.8 % (20-40); MANUAL DIFF FLAG SCAN; Mean Corpuscular HGB Conc 29.9 g/dl (31.0-35.0); Mean Corpuscular Hemoglobin 26.7 pg (27.0-33.0); Mean Corpuscular Volume 89.3 fL (80.0-98.0); Mean Platelet Volume 9.9 fL (9.4-12.3); Monocytes Absolute Auto 1.2 X10*3/uL (0.1-1.2); Monocytes Percent Auto 7.6 % (2-11); Neutrophils Absolute Auto 7.9 x10*3/uL (2.0-8.3); Neutrophils Percent Auto 50.8 % (45-73); Platelet Count 675 X10*3/uL (160-400); Red Blood Count 4.87 X10*6/uL (4.20-5.50); Red Cell Distribution Width 16.5 % (11.0-16.0); SCAN SMEAR FLAG 1; White Blood Count 15.6 X10*3/uL (4.8-10.8)
[2021-12-03 07:45] LABS: SLIDE REVIEW VERIFIED
[2021-12-03 07:51] LABS: Estimated Average Glucose 111 mg/dL; Hemoglobin A1c % 5.5 %
[2021-12-03 08:10] LABS: Alanine Aminotransferase 21 U/L (0-31); Albumin Level 4.2 g/dL (3.5-5.0); Alkaline Phosphatase 76 U/L (39-117); Anion Gap 13 (12-20); Aspartate Amino Transferase 19 U/L (5-31); Blood Urea Nitrogen 11 mg/dL (9-16); Carbon Dioxide 26 mmol/L (22-29); Chloride 101 mmol/L (96-108); Cholesterol 245 mg/dL; Estimated Glomerular Filt Rate > 60; Glucose Random 122 mg/dL (60-115); HDL Cholesterol 43 mg/dL; LDL Cholesterol Calculated 147 mg/dl; Potassium 5.2 mmol/L (3.3-5.1); Sodium 135 mmol/L (135-145); Total Protein 7.3 g/dL (6.5-8.0); Triglycerides 278 mg/dL
[2021-12-03 08:25] LABS: TSH reflex Free T4 3.51 uIU/mL (0.32-4.0); Vitamin D 25-OH Total 13.3 ng/mL (>30)
[2021-12-03 08:30] LABS: Bilirubin Direct < 0.2 mg/dL (0.0-0.5); Bilirubin Total 0.2 mg/dL (0.0-1.0); Calcium 10.8 mg/dL (8.4-10.2)
[2021-12-03 09:47] LABS: Vitamin B12 323 pg/mL (200-900)
== END 2021-12-03 06:04 | disposition home or self-care (01) ==
LOC: HO.LAB 06:03
PROVIDERS: Absent Provider Student in an Organized Health Care Education/Training Program; PCP Student in an Organized Health Care Education/Training Program; Visit Provider Pediatrics
DX: Z72.0 Tobacco use (principal)
CPT/HCPCS: 36415; 80053; 80061; 82248; 82306; 82550; 82607; 83036; 84443; 85025

== ENCOUNTER 2021-12-14 07:46 | Outpatient (REF) | payer MEDICARE, MEDICAID, SELFPAY ==
[2021-12-14 09:11] LABS: Lithium 0.79 mmol/L (0.60-1.20)
== END 2021-12-14 07:47 | disposition home or self-care (01) ==
LOC: HO.LAB 07:46
PROVIDERS: PCP Student in an Organized Health Care Education/Training Program; Visit Provider Clinical Nurse Specialist Psychiatric/Mental Health, Adult
DX: Z79.899 Other long term (current) drug therapy (principal)
CPT/HCPCS: 36415; 80178

== ENCOUNTER 2022-02-03 07:47 | Outpatient (REF) | payer MEDICARE, MEDICAID, SELFPAY ==
[2022-02-03 08:57] LABS: Lithium 0.96 mmol/L (0.60-1.20)
== END 2022-02-03 07:48 | disposition home or self-care (01) ==
LOC: HO.LAB 07:47
PROVIDERS: PCP Student in an Organized Health Care Education/Training Program; Visit Provider Clinical Nurse Specialist Psychiatric/Mental Health, Adult
DX: Z79.899 Other long term (current) drug therapy (principal)
CPT/HCPCS: 36415; 80178

== ENCOUNTER 2022-05-07 09:01 | Outpatient (REF) | payer MEDICARE, MEDICAID, SELFPAY ==
[2022-05-07 09:36] LABS: MANUAL DIFF FLAG NO
[2022-05-07 10:09] LABS: Basophils Absolute Auto 0.1 X10*3/uL (0.0-0.2); Basophils Percent Auto 0.7 % (0-2); Eosinophils Absolute Auto 0.8 X10*3/uL (0.0-0.4); Eosinophils Percent Auto 5.4 % (0-4); Hematocrit 38.7 % (37.0-47.0); Hemoglobin 11.6 g/dl (12.0-16.0); Imm Gran Abs Auto 0.06 X10*3/uL (0.00-0.03); Imm Gran Pct Auto 0.4 % (0.0-0.4); Lymphocytes Absolute Auto 4.4 X10*3/uL (1.2-4.9); Mean Corpuscular Hemoglobin 24.7 pg (27.0-33.0); Mean Corpuscular Volume 82.3 fL (80.0-98.0); Mean Platelet Volume 9.7 fL (9.4-12.3); Monocytes Absolute Auto 0.9 X10*3/uL (0.1-1.2); Monocytes Percent Auto 5.7 % (2-11); NRBC Pct Auto 0.1 /100WBC (0.0-0.2); Neutrophils Percent Auto 58.8 % (45-73); Platelet Count 626 X10*3/uL (160-400); Red Cell Distribution Width 18.2 % (11.0-16.0); White Blood Count 15.3 X10*3/uL (4.8-10.8)
[2022-05-07 10:29] LABS: Estimated Average Glucose 97 mg/dL
[2022-05-07 10:37] LABS: Lithium 1.25 mmol/L (0.60-1.20)
[2022-05-07 10:43] LABS: Alanine Aminotransferase 16 U/L (0-31); Albumin Level 4.2 g/dL (3.5-5.0); Alkaline Phosphatase 82 U/L (39-117); Anion Gap 13 (12-20); Aspartate Amino Transferase 17 U/L (5-31); Bilirubin Direct < 0.2 mg/dL (0.0-0.5); Bilirubin Total 0.3 mg/dL (0.0-1.0); Blood Urea Nitrogen 8 mg/dL (9-16); Calcium 10.1 mg/dL (8.4-10.2); Carbon Dioxide 23 mmol/L (22-29); Chloride 107 mmol/L (96-108); Cholesterol 234 mg/dL; Estimated Glomerular Filt Rate > 60; Glucose Random 98 mg/dL (60-115); HDL Cholesterol 36 mg/dL; LDL Cholesterol Calculated 155 mg/dl; Potassium 5.1 mmol/L (3.3-5.1); Sodium 138 mmol/L (135-145); Total Protein 7.1 g/dL (6.5-8.0); Triglycerides 219 mg/dL
[2022-05-07 11:05] LABS: Free T4 (Free Thyroxine) 0.72 ng/dL (0.71-1.85); Thyroid Stimulating Hormone 5.93 uIU/mL (0.32-4.0)
== END 2022-05-07 09:02 | disposition home or self-care (01) ==
LOC: HO.LAB 09:01
PROVIDERS: Visit Provider Nurse Practitioner Psychiatric/Mental Health
DX: Z79.899 Other long term (current) drug therapy (principal)
CPT/HCPCS: 36415; 80053; 80061; 80178; 82248; 83036; 84439; 84443; 85025

== ENCOUNTER 2022-05-19 07:10 | Outpatient (REF) | payer MEDICARE, MEDICAID, SELFPAY ==
[2022-05-19 07:49] LABS: Lithium 0.93 mmol/L (0.60-1.20)
== END 2022-05-19 07:11 | disposition home or self-care (01) ==
LOC: HO.LAB 07:10
PROVIDERS: PCP Student in an Organized Health Care Education/Training Program; Visit Provider Nurse Practitioner Psychiatric/Mental Health
DX: Z79.899 Other long term (current) drug therapy (principal)
CPT/HCPCS: 36415; 80178

== ENCOUNTER 2022-10-12 09:00 | Outpatient (REF) | payer MEDICARE, MEDICAID, SELFPAY ==
--- NOTE | ~2022-10-12 | XR_ITS ---
EXAMINATION: XR LUMBOSACRAL SPINE WITH OBLIQUES CLINICAL INFORMATION: Chronic low back pain. COMPARISON: 06/12/2019 lumbar spine radiographs. TECHNIQUE: AP, both oblique, and lateral views of the lumbar spine. Lateral view of the lumbosacral junction. FINDINGS: Minimal thoracolumbar dextro scoliosis is seen with apex at L1-L2. Normal lumbar lordosis and spinal alignment is seen. The vertebral bodies and intervertebral disc spaces are unremarkable. The facet joints are unremarkable. The soft tissues are unremarkable. XR/XR lumbar spine 4V min IMPRESSION: Minimal thoracolumbar dextro scoliosis without other significant abnormality.
== END 2022-10-12 09:01 | disposition home or self-care (01) ==
LOC: HO.XRAY 09:00
PROVIDERS: PCP Student in an Organized Health Care Education/Training Program; Visit Provider Chiropractor
DX: M54.50 Low back pain, unspecified (principal)
CPT/HCPCS: 72110

== ENCOUNTER → 2022-11-03 08:55 | Outpatient (BNVA) | payer MEDICARE, MEDICAID, SELFPAY | PROVIDERS: PCP Student in an Organized Health Care Education/Training Program; Visit Provider Nurse Practitioner Family | DX: R35.0 Frequency of micturition (principal); R32 Unspecified urinary incontinence | CPT/HCPCS: 51798; 99202 ==

== ENCOUNTER 2023-01-26 06:20 | Outpatient (REF) | payer MEDICARE, MEDICAID, SELFPAY ==
--- NOTE | ~2023-01-26 | XR_ITS ---
CR X-RAY CHEST WITH APICAL LORDOTIC VIEW CLINICAL: COPD, wheezing, chest tightness. TECHNIQUE: PA and lateral views of the chest were obtained along with an apical lordotic view. COMPARISON: 10/06/2021 chest radiograph. FINDINGS: The lungs including lung apices are clear. There are no pleural effusions. The heart and mediastinal structures are unremarkable. XR/XR chest w apical lordotic IMPRESSION: No acute cardiopulmonary process.
== END 2023-01-26 06:21 | disposition home or self-care (01) ==
LOC: HO.XRAY 06:20
PROVIDERS: PCP Student in an Organized Health Care Education/Training Program; Visit Provider Family Medicine
DX: J44.1 Chronic obstructive pulmonary disease with (acute) exacerbation (principal)
CPT/HCPCS: 71047

== ENCOUNTER 2023-02-02 13:05 | Outpatient (REF) | payer MEDICARE, MEDICAID, SELFPAY ==
--- NOTE | ~2023-02-02 | US_ITS ---
EXAMINATION: US RETROPERITONEAL COMPLETE (RENAL) CLINICAL INFORMATION: Unspecified urinary incontinence. COMPARISON: X-ray abdomen KUB 02/25/2021. Ultrasound abdomen complete 02/19/2018 and 09/06/2016. TECHNIQUE: Real-time imaging of the kidneys and bladder. FINDINGS: RIGHT KIDNEY: 11.4 x 4.7 x 5.9 cm (SAG x AP x TRV). The kidney is normal in size, contour, and echogenicity. Renal cortical thickness is normal. No calculi or focal parenchymal lesions. No hydronephrosis. There are a few scattered echogenic foci seen in the right kidney. LEFT KIDNEY: 11.0 x 5.2 x 5.9 cm (SAG x AP x TRV). The kidney is normal in size, contour, and echogenicity. Renal cortical thickness is normal. No calculi or focal parenchymal lesions. No hydronephrosis. There are a few scattered echogenic foci seen in the left kidney. BLADDER: Bladder is decompressed. Bilateral ureteral jets are demonstrated. Prevoid bladder volume is 35.7 mL. Postvoid bladder volume is 2.0 mL. US/US retroperitoneal comp IMPRESSION: 1. A few scattered echogenic foci in both kidneys. No echogenic stones or hydronephrosis. 2. Small postvoid residual bladder volume. Normal bilateral ureteral jets seen.
== END 2023-02-02 13:06 | disposition home or self-care (01) ==
LOC: HO.US 13:05
PROVIDERS: PCP Student in an Organized Health Care Education/Training Program; Visit Provider Nurse Practitioner Family
DX: R32 Unspecified urinary incontinence (principal); R35.0 Frequency of micturition
CPT/HCPCS: 76770

== ENCOUNTER → 2023-02-07 09:49 | Outpatient (BNVA) | payer MEDICARE, MEDICAID, SELFPAY | PROVIDERS: PCP Student in an Organized Health Care Education/Training Program; Visit Provider Nurse Practitioner Family | DX: R35.0 Frequency of micturition (principal); R32 Unspecified urinary incontinence | CPT/HCPCS: 51798; 99212 ==

== ENCOUNTER → 2023-03-10 10:21 | Outpatient (BNVA) | payer MEDICARE, MEDICAID, SELFPAY | PROVIDERS: PCP Student in an Organized Health Care Education/Training Program; Visit Provider Physician Assistant | DX: K21.9 Gastro-esophageal reflux disease without esophagitis (principal); R13.10 Dysphagia, unspecified | CPT/HCPCS: 99202 ==

== ENCOUNTER 2023-03-16 09:26 | Outpatient (REF) | payer MEDICARE, MEDICAID, SELFPAY ==
--- NOTE | ~2023-03-16 | FL_ITS ---
PROCEDURE: FL BARIUM SWALLOW CLINICAL INFORMATION: Dysphagia. COMPARISON: None available. TECHNIQUE: Barium swallow examination is performed using fluoroscopic evaluation in addition to multiple fluoroscopic spot views. The patient is imaged both upright and prone and using both thick and thin sulfate along with effervescent granules. Fluoroscopy time: 1.9 minutes DAP: 21.818 Gy-cm2 Images: 81 FINDINGS: Following oral administration of thick barium and barium-coated turkey there is normal propagation of bolus from the oral cavity through the pharynx, esophagus into stomach without any evidence of obstruction, narrowing or stricture. There is a small hiatal hernia seen in upright view. On placing patient prone and oral administration of thick barium there is good distention of the entire esophagus. There is a small ventral filling defect in the pharynx likely a small web. Rest of the esophagus distends well with no intrinsic or extrinsic compression. There is a small nonreducible hiatal hernia seen. 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 Nonreducible small hiatal hernia. No obstructing or constricting lesion seen.
== END 2023-03-16 09:27 | disposition home or self-care (01) ==
LOC: HO.XRAY 09:26
PROVIDERS: PCP Student in an Organized Health Care Education/Training Program; Visit Provider Student in an Organized Health Care Education/Training Program
DX: R13.10 Dysphagia, unspecified (principal); K21.9 Gastro-esophageal reflux disease without esophagitis
CPT/HCPCS: 74220

== ENCOUNTER 2023-03-30 08:45 | Outpatient (REF) | payer MEDICARE, MEDICAID, SELFPAY ==
[2023-03-30 09:19] LABS: MANUAL DIFF FLAG NO
[2023-03-30 09:46] LABS: Basophils Absolute Auto 0.1 X10*3/uL (0.0-0.2); Basophils Percent Auto 1.1 % (0-2); Eosinophils Absolute Auto 0.4 X10*3/uL (0.0-0.4); Hematocrit 34.1 % (37.0-47.0); Hemoglobin 9.7 g/dl (12.0-16.0); Imm Gran Abs Auto 0.04 X10*3/uL (0.00-0.03); Imm Gran Pct Auto 0.3 % (0.0-0.4); Lymphocytes Absolute Auto 4.4 X10*3/uL (1.2-4.9); Lymphocytes Percent Auto 36.5 % (20-40); Mean Corpuscular HGB Conc 28.4 g/dl (31.0-35.0); Mean Corpuscular Hemoglobin 20.5 pg (27.0-33.0); Mean Corpuscular Volume 72.1 fL (80.0-98.0); Mean Platelet Volume 9.2 fL (9.4-12.3); Monocytes Absolute Auto 0.9 X10*3/uL (0.1-1.2); Monocytes Percent Auto 7.1 % (2-11); Neutrophils Absolute Auto 6.3 x10*3/uL (2.0-8.3); Platelet Count 641 X10*3/uL (160-400); Red Blood Count 4.73 X10*6/uL (4.20-5.50); White Blood Count 12.2 X10*3/uL (4.8-10.8)
[2023-03-30 10:25] LABS: Lithium 0.98 mmol/L (0.60-1.20)
[2023-03-30 10:28] LABS: Alanine Aminotransferase 17 U/L (0-31); Alkaline Phosphatase 65 U/L (39-117); Anion Gap 12 (12-20); Aspartate Amino Transferase 16 U/L (5-31); Bilirubin Total 0.3 mg/dL (0.0-1.0); Blood Urea Nitrogen 7 mg/dL (9-16); Calcium 10.1 mg/dL (8.4-10.2); Carbon Dioxide 25 mmol/L (22-29); Chloride 108 mmol/L (96-108); Cholesterol 171 mg/dL; Estimated Glomerular Filt Rate > 60; Glucose Random 85 mg/dL (60-115); HDL Cholesterol 36 mg/dL; LDL Cholesterol Calculated 101 mg/dl; Potassium 4.8 mmol/L (3.3-5.1); Sodium 140 mmol/L (135-145); Total Protein 6.6 g/dL (6.5-8.0); Triglycerides 173 mg/dL
[2023-03-30 11:04] LABS: Folate 6.2 ng/mL (> or = 4.0); TSH reflex Free T4 1.54 uIU/mL (0.32-4.0); Vitamin B12 311 pg/mL (200-900)
== END 2023-03-30 08:46 | disposition home or self-care (01) ==
LOC: HO.LAB 08:45
PROVIDERS: PCP Student in an Organized Health Care Education/Training Program; Visit Provider Family Medicine
DX: R53.83 Other fatigue (principal); E66.9 Obesity, unspecified; Z68.33 Body mass index [BMI] 33.0-33.9, adult
CPT/HCPCS: 36415; 80053; 80061; 80178; 82607; 82746; 84443; 85025

== ENCOUNTER 2023-04-07 12:42 | Emergency (ER) | payer MEDICARE, MEDICAID, SELFPAY ==
[2023-04-07 13:08] VITALS: BP 119/67; PULSE 81; RESP 18; TEMP 36.6; O2SAT 98; BMI 33.7
--- NOTE | 2023-04-07 13:11 | ED.GENADULT ---
HPI - General Adult General Chief complaint: Eye Problems Stated complaint: eye issue Related Data Home Medications Medication Instructions Recorded Confirmed escitalopram oxalate 10 mg tablet 10 mg PO DAILY 11/03/22 11/03/22 dextroamphetamine-amphetamine ER 1 cap PO DAILY 02/07/23 30 mg 24hr capsule,extend release simvastatin 20 mg tablet 20 mg PO BEDTIME 02/07/23 Previous Rx's Medication Instructions Recorded albuterol sulfate 90 mcg/actuation 2 puff inhalation Q4H PRN 03/04/21 aerosol inhaler (Ventolin HFA) shortness of breath or wheezing 30 days #3 grams budesonide 180 mcg/actuation 1 inh inhalation BID #1 ea 03/04/21 breath activated powder inhaler (Pulmicort Flexhaler) cariprazine 6 mg capsule (Vraylar) 6 mg PO DAILY 30 days #30 caps 03/04/21 cholecalciferol (vitamin D3) 25 25 mcg PO DAILY #30 tabs 03/04/21 mcg (1,000 unit) tablet clonazepam 0.5 mg tablet (Klonopin) 0.5 mg PO 1200 #30 tabs 03/04/21 clonazepam 1 mg tablet 1 mg PO BID #60 tabs 03/04/21 clonidine HCl 0.1 mg tablet 0.1 mg PO TID #90 tabs 03/04/21 docusate sodium 100 mg capsule 200 mg PO BEDTIME #60 caps 03/04/21 fluticasone propionate 50 1 spray intranasal Q12H #16 grams 03/04/21 mcg/actuation nasal spray,suspension (Flonase Allergy Relief) gabapentin 300 mg capsule 300 mg PO BID #60 caps 03/04/21 lithium carbonate 300 mg capsule 300 mg PO DAILY #30 caps 03/04/21 lithium carbonate 300 mg capsule 600 mg PO BEDTIME #60 caps 03/04/21 mirtazapine 7.5 mg tablet 7.5 mg PO BEDTIME #30 tabs 03/04/21 sertraline 100 mg tablet 200 mg PO DAILY 30 days #60 tabs 03/04/21 sumatriptan succinate 50 mg tablet 50 mg PO DAILY MRX1 #60 tabs 03/04/21 trazodone 50 mg tablet 50 mg PO BEDTIME PRN Insomnia 30 03/04/21 days #30 tabs albuterol sulfate 0.63 mg/3 mL 0.63 mg (3 mL) inhalation QID PRN 10/06/21 solution for nebulization shortness of breath or wheezing #75 mL albuterol sulfate 90 mcg/actuation 1 inh inhalation QID PRN shortness 10/06/21 aerosol inhaler of breath or wheezing #8.5 grams nebulizers (AeroEclipse II #1 ea 10/06/21 Nebulizer) mirabegron 25 mg tablet,extended 25 mg PO DAILY 30 days #30 tabs 02/07/23 release 24 hr (Myrbetriq) erythromycin 5 mg/gram (0.5 %) eye 0.5 inch ophthalmic (eye) TID 5 04/08/23 ointment days #3.5 grams ibuprofen 600 mg tablet 600 mg PO Q6H PRN pain #20 tabs 04/08/23 ibuprofen 600 mg tablet 600 mg PO Q6H PRN pain #20 tabs 04/08/23 oxycodone 5 mg tablet 5 mg PO Q6H PRN pain #10 tabs 04/08/23 oxycodone 5 mg tablet 5 mg PO Q6H PRN pain #10 tabs 04/08/23 Allergies Allergy/AdvReac Type Severity Reaction Status Date / Time SEASONAL ALLERGIES Allergy Intermediate RUNNY NOSE Uncoded 02/07/23 10:23 WATERY EYES PMFSH Past Medical History Medical History Anemia Anxiety Asthma B12 deficiency Bipolar disorder, unspecified Borderline personality disorder Bronchitis Cervical cancer Clonidine overdose COPD (chronic obstructive pulmonary disease) Depression Depression HLD (hyperlipidemia) Incontinence Migraines Polysubstance overdose Posttraumatic stress disorder Smoker Urinary frequency Surgical History History of total splenectomy Social History Social History Household Members: Family Housing: Apartment Do you presently have visiting nurse or other home services: No Alcohol intake: never Cigarette Packs Per Day: 1.5 Cigarettes Per Day: 30.0 Years Smoked: 15 Second Hand Smoke Exposure: Yes Substance Use Type: Marijuana Advance Directives: No Advance Directives Information Provided: No service: No Current occupational status: disabled 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 Sexual orientation: Straight/Heterosexual Physical Exam ED Vital Signs: Vital Signs - 24 hr 04/07/23 13:08 Temperature 98 F Pulse Rate 81 Respiratory Rate 18 Blood Pressure 119/67 Pulse Oximetry 98 Oxygen Delivery Method Room Air BMI result Body Mass Index 33.7 Course Course Course Narrative: This is an RME: Additional HPI, ROS, PE not included below will be deferred to primary provider. This is a [id number], with a past medical history of anxiety, depression, PTSD, bipolar, GERD, headaches, insomnia and history multiple overdoses, presenting to the emergency department of left eye irritation, drainage, and eye pressure and discomfort since this morning. Also reporting visual changes. No recent trauma or injury. No fevers or chills. VSS. Plan: Pt needs thorough eye exam and visual acuity in main emergency department Reevaluation(s) Reevaluation #1: pt eloped prior to being seen by primary provider. Discharge Plan Discharge Clinical Impression: Eye irritation Patient Disposition: Elopement Prescriptions: No Action lithium carbonate 300 mg Capsule 300 mg PO DAILY Qty: 30 0RF lithium carbonate 300 mg Capsule 600 mg PO BEDTIME Qty: 60 0RF mirtazapine 7.5 mg Tablet 7.5 mg PO BEDTIME Qty: 30 0RF docusate sodium 100 mg Capsule 200 mg PO BEDTIME Qty: 60 0RF cholecalciferol (vitamin D3) 25 mcg (1,000 unit) Tablet 25 mcg PO DAILY Qty: 30 0RF clonazepam [Klonopin] 0.5 mg tablet 0.5 mg PO 1200 Qty: 30 0RF gabapentin 300 mg capsule 300 mg PO BID Qty: 60 0RF fluticasone propionate [Flonase Allergy Relief] 50 mcg/actuation spray,suspension 1 spray intranasal Q12H Qty: 16 0RF Rx Instructions: administer into each nostril clonidine HCl 0.1 mg tablet 0.1 mg PO TID Qty: 90 0RF Protocol: Hold for SBP< HOLD for SBP < : 90 trazodone 50 mg Tablet 50 mg PO BEDTIME PRN (Reason: Insomnia) 30 Days Qty: 30 0RF sertraline 100 mg Tablet 200 mg PO DAILY 30 Days Qty: 60 0RF clonazepam 1 mg tablet 1 mg PO BID Qty: 60 0RF sumatriptan succinate 50 mg tablet 50 mg PO DAILY MRX1 Qty: 60 0RF albuterol sulfate [Ventolin HFA] 90 mcg/actuation Hfa Aerosol Inhaler 2 puff inhalation Q4H PRN (Reason: shortness of breath or wheezing) 30 Days Qty: 3 0RF Pulmicort Flexhaler 180 mcg/actuation aerosol powdr breath activated 1 inh inhalation BID Qty: 1 0RF Vraylar 6 mg capsule 6 mg PO DAILY 30 Days Qty: 30 0RF (DME) AeroEclipse II Nebulizer Misc See Rx Instructions .ROUTE .MEDSUPPLY Qty: 1 0RF Rx Instructions: As directed albuterol sulfate 0.63 mg/3 mL solution for nebulization 0.63 mg inhalation QID PRN (Reason: shortness of breath or wheezing) Qty: 75 0RF albuterol sulfate 90 mcg/actuation HFA aerosol inhaler 1 inh inhalation QID PRN (Reason: shortness of breath or wheezing) Qty: 8.5 0RF erythromycin 5 mg/gram (0.5 %) ointment 0.5 inch ophthalmic (eye) TID 5 Days Qty: 3.5 0RF ibuprofen 600 mg tablet 600 mg PO Q6H PRN (Reason: pain) Qty: 20 0RF oxycodone 5 mg tablet 5 mg PO Q6H PRN (Reason: pain) Qty: 10 0RF Rx Instructions: Partial Fill upon patient request. ibuprofen 600 mg tablet 600 mg PO Q6H PRN (Reason: pain) Qty: 20 0RF oxycodone 5 mg tablet 5 mg PO Q6H PRN (Reason: pain) Qty: 10 0RF Rx Instructions: Partial Fill upon patient request. escitalopram oxalate 10 mg tablet 10 mg PO DAILY dextroamphetamine-amphetamine 30 mg capsule,extended release 24hr 1 cap PO DAILY simvastatin 20 mg tablet 20 mg PO BEDTIME Myrbetriq 25 mg tablet extended release 24 hr 25 mg PO DAILY 30 Days Qty: 30 1RF Discharge Date/Time: 04/07/23 16:45
--- NOTE | 2023-04-07 16:15 | MHC.EDTECH ---
Called patient for [facility] @ [phone]. No Answer
== END 2023-04-07 16:45 | disposition left against medical advice (07) ==
LOC: HO.ED 16:34
PROVIDERS: Emergency Provider Emergency Medicine; PCP Student in an Organized Health Care Education/Training Program
DX: H57.13 Ocular pain, bilateral (principal)
CPT/HCPCS: 99281

== ENCOUNTER 2023-04-08 09:33 | Emergency (ER) | payer MEDICARE, MEDICAID, SELFPAY ==
[2023-04-08 09:52] VITALS: BP 116/64; PULSE 79; RESP 16; TEMP 37.2; O2SAT 94; BMI 33.7
[2023-04-08] MEDS: Fluorescein Sodium STRIP 1 STRIP EYE-BOTH ×2 (10:02→10:26)
[2023-04-08] MEDS: Tetracaine HCl/PF 0.5% Oph Sol 4 ML DROPS 1 DROP EYE-LEFT (10:02)
--- NOTE | 2023-04-08 10:34 | PC.NURSE ---
PT EVALUATED AND FOUND TO HAVE A LARGE CORNEAL ABRASION.
--- NOTE | 2023-04-08 10:38 | ED_ITS ---
HPI - Eye Problem General Chief complaint: Eye Problems Stated complaint: left eye pain, swollen Time Seen by Provider: 04/08/23 09:43 History of Present Illness HPI Narrative: Patient complains of left eye pain and discharge, mostly a watery discharge and left eye swelling, pain began today, the wateriness and discharge developed yesterday, the vision loss coincided with the eye pain today when she woke up There is no fever no chills no dizziness no weakness, she does remember her c hild poking her in the left eye yesterday Related Data Home Medications Medication Instructions Recorded Confirmed escitalopram oxalate 10 mg tablet 10 mg PO DAILY 11/03/22 11/03/22 dextroamphetamine-amphetamine ER 1 cap PO DAILY 02/07/23 30 mg 24hr capsule,extend release simvastatin 20 mg tablet 20 mg PO BEDTIME 02/07/23 Previous Rx's Medication Instructions Recorded albuterol sulfate 90 mcg/actuation 2 puff inhalation Q4H PRN 03/04/21 aerosol inhaler (Ventolin HFA) shortness of breath or wheezing 30 days #3 grams budesonide 180 mcg/actuation 1 inh inhalation BID #1 ea 03/04/21 breath activated powder inhaler (Pulmicort Flexhaler) cariprazine 6 mg capsule (Vraylar) 6 mg PO DAILY 30 days #30 caps 03/04/21 cholecalciferol (vitamin D3) 25 25 mcg PO DAILY #30 tabs 03/04/21 mcg (1,000 unit) tablet clonazepam 0.5 mg tablet (Klonopin) 0.5 mg PO 1200 #30 tabs 03/04/21 clonazepam 1 mg tablet 1 mg PO BID #60 tabs 03/04/21 clonidine HCl 0.1 mg tablet 0.1 mg PO TID #90 tabs 03/04/21 docusate sodium 100 mg capsule 200 mg PO BEDTIME #60 caps 03/04/21 fluticasone propionate 50 1 spray intranasal Q12H #16 grams 03/04/21 mcg/actuation nasal spray,suspension (Flonase Allergy Relief) gabapentin 300 mg capsule 300 mg PO BID #60 caps 03/04/21 lithium carbonate 300 mg capsule 300 mg PO DAILY #30 caps 03/04/21 lithium carbonate 300 mg capsule 600 mg PO BEDTIME #60 caps 03/04/21 mirtazapine 7.5 mg tablet 7.5 mg PO BEDTIME #30 tabs 03/04/21 sertraline 100 mg tablet 200 mg PO DAILY 30 days #60 tabs 03/04/21 sumatriptan succinate 50 mg tablet 50 mg PO DAILY MRX1 #60 tabs 03/04/21 trazodone 50 mg tablet 50 mg PO BEDTIME PRN Insomnia 30 03/04/21 days #30 tabs albuterol sulfate 0.63 mg/3 mL 0.63 mg (3 mL) inhalation QID PRN 10/06/21 solution for nebulization shortness of breath or wheezing #75 mL albuterol sulfate 90 mcg/actuation 1 inh inhalation QID PRN shortness 10/06/21 aerosol inhaler of breath or wheezing #8.5 grams nebulizers (AeroEclipse II #1 ea 10/06/21 Nebulizer) mirabegron 25 mg tablet,extended 25 mg PO DAILY 30 days #30 tabs 02/07/23 release 24 hr (Myrbetriq) erythromycin 5 mg/gram (0.5 %) eye 0.5 inch ophthalmic (eye) TID 5 04/08/23 ointment days #3.5 grams ibuprofen 600 mg tablet 600 mg PO Q6H PRN pain #20 tabs 04/08/23 ibuprofen 600 mg tablet 600 mg PO Q6H PRN pain #20 tabs 04/08/23 oxycodone 5 mg tablet 5 mg PO Q6H PRN pain #10 tabs 04/08/23 oxycodone 5 mg tablet 5 mg PO Q6H PRN pain #10 tabs 04/08/23 Allergies Allergy/AdvReac Type Severity Reaction Status Date / Time SEASONAL ALLERGIES Allergy Intermediate RUNNY NOSE Uncoded 02/07/23 10:23 WATERY EYES PMFSH Past Medical History Source: nursing notes reviewed Medical History Anemia Anxiety Asthma B12 deficiency Bipolar disorder, unspecified Borderline personality disorder Bronchitis Cervical cancer Clonidine overdose COPD (chronic obstructive pulmonary disease) Depression Depression HLD (hyperlipidemia) Incontinence Migraines Polysubstance overdose Posttraumatic stress disorder Smoker Urinary frequency Surgical History History of total splenectomy Social History Social History Household Members: Family Housing: Apartment Do you presently have visiting nurse or other home services: No Alcohol intake: never Cigarette Packs Per Day: 1.5 Cigarettes Per Day: 30.0 Years Smoked: 15 Second Hand Smoke Exposure: Yes Substance Use Type: Marijuana Advance Directives: No Advance Directives Information Provided: No service: No Current occupational status: disabled 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 Sexual orientation: Straight/Heterosexual Physical Exam Vital Signs: Vital Signs: Last Vital Signs Temp 99 F 04/08/23 09:52 Pulse 79 04/08/23 09:52 Resp 16 04/08/23 09:52 BP 116/64 04/08/23 09:52 Pulse Ox 94 04/08/23 09:52 O2 Del Method Room Air 04/08/23 09:52 BMI result Body Mass Index 33.7 General appearance no acute distress Eye exam the visual acuity in the right eye is 20 40 The right eye had some redness there was no obvious discharge from the eye, pupils equal round reactive to light extraocular motions are full and intact in both eyes The left eye is held closed hard for her to open, visual acuity before fluoresce in is she could not see the on the eye chart with the left eye Fluorescein was applied the left eye has a very large corneal abrasion covering most of the cornea just a small part on top is visible, visual acuity was minimally improved after the fluorescein and she could basically see the but it was very blurry, her pain was fully relieved with the application of fluorescein Staining of the right eye there was no dye uptake Skin no rash Course Course Course Narrative: Patient with very large coronary abrasion obscuring most of the left cornea with a visual acuity of barely seeing the top letter E on the eye chart Patient given antibiotic ointment and pain medication I called Dr. Miguel office to arrange follow-up and they said they would see her next week and she will call the office to make an appointment Medications Administered Discontinued Medications Generic Name Dose Route Start Last Admin Trade Name Freq PRN Reason Stop Dose Admin Erythromycin 1 cm 04/08/23 10:38 04/08/23 10:43 Erythromycin Base 0.5% Oph Oin 1 Gm Tube EYE-LEFT 04/08/23 10:39 1 cm ONCE ONE Administration Fluorescein Sodium 1 strip 04/08/23 09:49 04/08/23 10:02 Fluorescein Sodium Strip EYE-BOTH 04/08/23 09:50 1 strip ONCE ONE Administration Fluorescein Sodium 1 strip 04/08/23 10:15 04/08/23 10:26 Fluorescein Sodium Strip EYE-BOTH 04/08/23 10:16 1 strip ONCE ONE Administration Tetracaine HCl 1 drop 04/08/23 09:49 04/08/23 10:02 Tetracaine Hcl/Pf 0.5% Oph Anny 4 Ml Drops EYE-LEFT 04/08/23 09:50 1 drop ONCE ONE Administration Discharge Plan Discharge Clinical Impression: Abrasion, corneal Patient Disposition: Home, Self-Care Additional Instructions: You have a very large corneal abrasion in the left eye, a scratch which is blocking vision in the left eye It is big enough that you definitely need to follow with an eye doctor next week as it may not heal properly I called Dr. Small of [place] office and they said you should call them so they could get your information and they will make an appointment for you next week Apply antibiotic ointment 3 times a day Use pain medicine as needed Return any time if worse Prescriptions: New erythromycin 5 mg/gram (0.5 %) ointment 0.5 inch ophthalmic (eye) TID 5 Days Qty: 3.5 0RF ibuprofen 600 mg tablet 600 mg PO Q6H PRN (Reason: pain) Qty: 20 0RF oxycodone 5 mg tablet 5 mg PO Q6H PRN (Reason: pain) Qty: 10 0RF Rx Instructions: Partial Fill upon patient request. ibuprofen 600 mg tablet 600 mg PO Q6H PRN (Reason: pain) Qty: 20 0RF oxycodone 5 mg tablet 5 mg PO Q6H PRN (Reason: pain) Qty: 10 0RF Rx Instructions: Partial Fill upon patient request. No Action lithium carbonate 300 mg Capsule 300 mg PO DAILY Qty: 30 0RF lithium carbonate 300 mg Capsule 600 mg PO BEDTIME Qty: 60 0RF mirtazapine 7.5 mg Tablet 7.5 mg PO BEDTIME Qty: 30 0RF docusate sodium 100 mg Capsule 200 mg PO BEDTIME Qty: 60 0RF cholecalciferol (vitamin D3) 25 mcg (1,000 unit) Tablet 25 mcg PO DAILY Qty: 30 0RF clonazepam [Klonopin] 0.5 mg tablet 0.5 mg PO 1200 Qty: 30 0RF gabapentin 300 mg capsule 300 mg PO BID Qty: 60 0RF fluticasone propionate [Flonase Allergy Relief] 50 mcg/actuation spray,suspension 1 spray intranasal Q12H Qty: 16 0RF Rx Instructions: administer into each nostril clonidine HCl 0.1 mg tablet 0.1 mg PO TID Qty: 90 0RF Protocol: Hold for SBP< HOLD for SBP < : 90 trazodone 50 mg Tablet 50 mg PO BEDTIME PRN (Reason: Insomnia) 30 Days Qty: 30 0RF sertraline 100 mg Tablet 200 mg PO DAILY 30 Days Qty: 60 0RF clonazepam 1 mg tablet 1 mg PO BID Qty: 60 0RF sumatriptan succinate 50 mg tablet 50 mg PO DAILY MRX1 Qty: 60 0RF albuterol sulfate [Ventolin HFA] 90 mcg/actuation Hfa Aerosol Inhaler 2 puff inhalation Q4H PRN (Reason: shortness of breath or wheezing) 30 Days Qty: 3 0RF Pulmicort Flexhaler 180 mcg/actuation aerosol powdr breath activated 1 inh inhalation BID Qty: 1 0RF Vraylar 6 mg capsule 6 mg PO DAILY 30 Days Qty: 30 0RF (DME) AeroEclipse II Nebulizer Misc See Rx Instructions .ROUTE .MEDSUPPLY Qty: 1 0RF Rx Instructions: As directed albuterol sulfate 0.63 mg/3 mL solution for nebulization 0.63 mg inhalation QID PRN (Reason: shortness of breath or wheezing) Qty: 75 0RF albuterol sulfate 90 mcg/actuation HFA aerosol inhaler 1 inh inhalation QID PRN (Reason: shortness of breath or wheezing) Qty: 8.5 0RF escitalopram oxalate 10 mg tablet 10 mg PO DAILY dextroamphetamine-amphetamine 30 mg capsule,extended release 24hr 1 cap PO DAILY simvastatin 20 mg tablet 20 mg PO BEDTIME Myrbetriq 25 mg tablet extended release 24 hr 25 mg PO DAILY 30 Days Qty: 30 1RF Referrals: Deshaun Miguel [Physician] - (Large left eye corneal abrasion obscuring vision in the left eye)
[2023-04-08] MEDS: Erythromycin Base 0.5% Oph Oin 1 GM TUBE 1 CM EYE-LEFT (10:43)
== END 2023-04-08 11:07 | disposition home or self-care (01) ==
PROVIDERS: Emergency Provider Emergency Medicine; PCP Student in an Organized Health Care Education/Training Program
DX: S05.02XA Injury of conjunctiva and corneal abrasion without foreign body, left eye, initial encounter (principal); W50.4XXA Accidental scratch by another person, initial encounter; F17.210 Nicotine dependence, cigarettes, uncomplicated; F12.90 Cannabis use, unspecified, uncomplicated; Y93.9 Activity, unspecified; Y92.019 Unspecified place in single-family (private) house as the place of occurrence of the external cause; Y99.9 Unspecified external cause status
CPT/HCPCS: 99282; 99283

== ENCOUNTER 2023-04-19 09:17 | Outpatient (RCR) | payer MEDICARE, MEDICAID, SELFPAY | END 2023-04-20 23:59 | disposition home or self-care (01) | LOC: HO.PHPA 09:17 | PROVIDERS: Visit Provider Psychiatry & Neurology Psychiatry | DX: F43.10 Post-traumatic stress disorder, unspecified (principal) ==

== ENCOUNTER → 2023-05-02 11:32 | Outpatient (BNVA) | payer MEDICARE, MEDICAID, SELFPAY | PROVIDERS: PCP Student in an Organized Health Care Education/Training Program; Visit Provider Physician Assistant | DX: K21.9 Gastro-esophageal reflux disease without esophagitis (principal); T51.2X1A Toxic effect of 2-Propanol, accidental (unintentional), initial encounter; R13.10 Dysphagia, unspecified | CPT/HCPCS: 99212 ==

== ENCOUNTER 2023-05-04 11:14 | Outpatient (REF) | payer MEDICARE, MEDICAID, SELFPAY | END 2023-05-04 11:15 | disposition home or self-care (01) | LOC: HO.LAB 11:14 | PROVIDERS: PCP Student in an Organized Health Care Education/Training Program; Visit Provider Physician Assistant | DX: T51.2X1A Toxic effect of 2-Propanol, accidental (unintentional), initial encounter (principal); X58.XXXA Exposure to other specified factors, initial encounter; Y93.9 Activity, unspecified; Y92.9 Unspecified place or not applicable; Y99.9 Unspecified external cause status | CPT/HCPCS: 80320 ==

== ENCOUNTER 2023-05-05 10:58 | Day surgery (SDC) | payer MEDICARE, MEDICAID, SELFPAY ==
--- NOTE | 2023-05-04 12:45 | P.CONAN_ITS ---
Documented by User: Alma Rosa Ramirez NP 05/04/23 12:47 HPI - Anesthesia Eval Consult details Narrative: 38yo F for Upper Endoscopy Hx splenectomy PMFSH Active Problems Active Problems: All Active Problems Olecranon bursitis of right elbow (Acute) Bipolar 2 disorder (Acute) Borderline personality disorder (Acute) Depression (Acute) Suicide attempt by multiple drug overdose (Acute) Bradycardia (Acute) Hypotension (Acute) Acid reflux (Acute) Dysphagia (Acute) Isopropyl alcohol poisoning (Acute) Urinary frequency (Acute) Incontinence (Acute) HLD (hyperlipidemia) (Acute) Clonidine overdose (Acute) Asthma (Acute) Bronchitis (Acute) Smoker (Acute) Past Medical History Medical History (Updated 05/05/23 @ 11:40 by Rubi Agudelo RN) Anemia Anxiety Asthma B12 deficiency Bipolar disorder, unspecified Borderline personality disorder Bronchitis Cervical cancer Clonidine overdose COPD (chronic obstructive pulmonary disease) Depression HLD (hyperlipidemia) Incontinence Migraines Polysubstance overdose Posttraumatic stress disorder Seasonal allergies Smoker Urinary frequency Surgical History Surgical History History of bilateral tubal ligation History of total splenectomy Social History Social History Household Members: Family Housing: Apartment Do you presently have visiting nurse or other home services: No Alcohol intake: never Patient Tobacco Use Status: Former Tobacco user Quit Date: 02/2023 Cigarette Packs Per Day: 1.5 Cigarettes Per Day: 30.0 Years Smoked: 15 Second Hand Smoke Exposure: Yes Substance Use Type: Marijuana service: No Current occupational status: disabled 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 Sexual orientation: Straight/Heterosexual Meds Allergies Allergy/AdvReac Type Severity Reaction Status Date / Time No Known Allergies Allergy Verified 05/05/23 11:41 Home Medications Medication Instructions Recorded Confirmed Last Taken Type escitalopram oxalate 10 mg tablet 10 mg PO DAILY 11/03/22 05/05/23 05/05/23 History dextroamphetamine-amphetamine ER 1 cap PO DAILY 02/07/23 05/05/23 05/05/23 History 30 mg 24hr capsule,extend release simvastatin 20 mg tablet 20 mg PO BEDTIME 02/07/23 05/05/23 05/05/23 History Exam Exam Date and Time: May 04, 2023 1245 Pertinent Lab Results Pertinent Lab Results: Laboratory Tests 03/30/23 03/30/23 09:17 09:17 WBC 12.2 H Hgb 9.7 L Hct 34.1 L Plt Count 641 H Sodium 140 Potassium 4.8 Chloride 108 Carbon Dioxide 25 BUN 7 L Creatinine 0.77 Documented by User: Rodolfo Gill MD 05/05/23 12:45 [facility] Past Medical History Medical History (Updated 05/05/23 @ 11:40 by Rubi Agudelo RN) Anemia Anxiety Asthma B12 deficiency Bipolar disorder, unspecified Borderline personality disorder Bronchitis Cervical cancer Clonidine overdose COPD (chronic obstructive pulmonary disease) Depression HLD (hyperlipidemia) Incontinence Migraines Polysubstance overdose Posttraumatic stress disorder Seasonal allergies Smoker Urinary frequency Patient : No Family History Family history of problems with anesthesia: No Surgical History Surgical History History of bilateral tubal ligation History of total splenectomy History of Problems with Anesthesia: No Social History Social History Household Members: Family Housing: Apartment Do you presently have visiting nurse or other home services: No Alcohol intake: never Patient Tobacco Use Status: Former Tobacco user Quit Date: 02/2023 Cigarette Packs Per Day: 1.5 Cigarettes Per Day: 30.0 Years Smoked: 15 Second Hand Smoke Exposure: Yes Substance Use Type: Marijuana service: No Current occupational status: disabled 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 Sexual orientation: Straight/Heterosexual Meds Allergies Allergy/AdvReac Type Severity Reaction Status Date / Time No Known Allergies Allergy Verified 05/05/23 11:41 Home Medications Medication Instructions Recorded Confirmed Last Taken Type escitalopram oxalate 10 mg tablet 10 mg PO DAILY 11/03/22 05/05/23 05/05/23 History dextroamphetamine-amphetamine ER 1 cap PO DAILY 02/07/23 05/05/23 05/05/23 History 30 mg 24hr capsule,extend release simvastatin 20 mg tablet 20 mg PO BEDTIME 04/01/2705/05/23 05/05/23 History Exam Airway Mallampati Class: II TM Dist: <=3cm Neck ROM: Full Denture: Upper Partial: Upper Heart: ok Lungs: ok Assessment and Plan Assessment Anesthesia Assessment: Anesthesia Plan Discussed and Chart Reviewed Final Anesthetic Review Family History of Problems with Anesthesia: No History of Problems with Anesthesia: No NPO: Yes ASA Class: III Final Preanesthetic Review: No Changes in Pt Med Stat, Meds/Allgs Chart Reviewed, Consent Obtained/Reviewed and Anes Risks/Benef Reviewed Patient Risk: Intermediate Procedure Risk: Intermediate Anesthetic Plan Anesthetic Plan: MAC: and Agree w/ Assess. and Plan Disposition: Standard PACU
[2023-05-05 11:41] VITALS: BMI 32.8
--- NOTE | 2023-05-05 11:52 | P.HPSUR_ITS ---
Pre-Procedural Eval Section A Date of Service: 05/05/23 Section B Chief Complaint: Gerd,Dysphagia Relevant Family History (Specify if Yes): No Relevant Social History: Tobacco Use Present Medications: see Short Stay Collaborative assessment Medical History: Significant History (Anemia Anxiety Asthma B12 deficiency Bipolar disorder, unspecified Borderline personality disorder Bronchitis Cervical cancer Clonidine overdose COPD (chronic obstructive pulmonary disease) Depression Depression HLD (hyperlipidemia) Incontinence Migraines Polysubstance overdose Posttraumatic stress ) History of Previous Operations: Relevant previous surgery/procedure and date(s) (History of total splenectomy) Allergies: Allergies Allergy/AdvReac Type Severity Reaction Status Date / Time No Known Allergies Allergy Verified 05/05/23 11:41 Review of Systems Sugical H&P ROS: Negative: Constitution, Cardiovascular, Respiratory, Neurological, Psychiatric, Hem-Onc, Allergic/Immunologic, Gastrointestinal, Genitourinary, Musculoskeletal, Integumentary, Endocrine and Eyes/Ears/No se/Throat Exam Surgical H&P Exam: Normal: HEENT, Normal: Heart, Normal: Lungs, Normal: Extremities, Normal: Abdomen, Normal: Skin and Normal: Neurological Plan Diagnosis/Plan: Unchanged I have reviewed the history and physical and performed a pertinent physical examination on my patient. No changes have occurred unless specified. Time Spent With Patient Time: Total time managing care of this patient today ____ minutes.
[2023-05-05 11:53] VITALS: BP 101/59; PULSE 83; RESP 16; TEMP 36.7; O2SAT 95
--- NOTE | 2023-05-05 11:54 | W.PM.OPN ---
Operative Note Operative Note Date of Service: 05/05/23 Narrative: Procedure Description: EGD Indication: dysphagia Anesthesia: MAC FLEXIBLE TRANSORAL UPPER GASTROINTESTINAL ENDOSCOPY UPPER ENDOSCOPY Consent: Indications for the procedure and potential complications of bleeding, perforation, reaction to medications and missed diagnosis were discussed with the patient and informed consent was obtained. Instrument: Olympus GIF H 190 J mid size upper endoscope Monitoring: Vital signs and clinical assessment, continuous EKG monitoring, Pulse oximetry, Carbon Dioxide monitoring and blood pressure monitoring were done throughout the procedure. Procedure: The patient was placed in the left lateral decubitis position and pre-procedure medications were administered and a bite block was placed. The endoscope was inserted into the mouth and advanced under direct vision to the third part of duodenum. A careful inspection was made as the upper endoscope was withdrawn including a retroflexed examination of the proximal stomach; Findings and interventions are described below. Findings: Larynx:normal Esophagus: GE junction at 31 cm, diaphragm hiatus at 36 cm, consistent with fixed hiatal hernia, with streaky erythema noted in the hiatal sac. bx taken from distal and proximal esophagus. LES and UES stretched with CRE balloon to 19 mm, no tears seen. Stomach: Patchy gastric erythema. Biopsies were obtained. Grade 2 flap valve on retroflexed examination of the cardia. Duodenum: Normal bulb and descending duodenum, Intervention: Biopsies as noted above, balloon dilation Impression/Findings: hiatal hernia gastritis PLAN: reflux precautions if agrees referal for hernia repair confirm compliance with PPI and correct self administration
[2023-05-05] MEDS: Albuterol Sulfate (0.083%) 2.5 MG/3 ML VIAL.NEB INHALE (12:06)
[2023-05-05 12:07] VITALS: PULSE 77; RESP 16; O2SAT 92
[2023-05-05] MEDS: Lactated Ringers 1,000 ML 100 ML IVCONT (12:25)
[2023-05-05 12:46] VITALS: BP 104/59; PULSE 89; RESP 16; TEMP 36.4; O2SAT 96
[2023-05-05 13:01] VITALS: BP 115/72; PULSE 73; RESP 16; TEMP 36.4; O2SAT 99
== END 2023-05-05 13:45 | disposition home or self-care (01) ==
PROVIDERS: PCP Student in an Organized Health Care Education/Training Program; Visit Provider Internal Medicine Gastroenterology
PROC: 0DJ08ZZ Inspection of Upper Intestinal Tract, Via Natural or Artificial Opening Endoscopic (ICD-10-PCS; CPT 43235; principal; 2023-05-05 13:10)
DX: R13.10 Dysphagia, unspecified (principal); K21.9 Gastro-esophageal reflux disease without esophagitis; K29.70 Gastritis, unspecified, without bleeding; K44.9 Diaphragmatic hernia without obstruction or gangrene; J44.9 Chronic obstructive pulmonary disease, unspecified; F17.210 Nicotine dependence, cigarettes, uncomplicated
CPT/HCPCS: 43249; 43239; 88305; 88342; 94640; C1726; J3010

== ENCOUNTER 2023-05-25 11:51 | Outpatient (AMB) | payer MEDICARE, MEDICAID, SELFPAY ==
--- NOTE | 2023-05-25 11:56 | A.OFFVIS_ITS ---
Intake Vital Signs 05/25/23 12:03 Height 5 ft 3 in Weight 185 lb BMI 32.8 BP 100/57 L Blood Pressure Location Lt brachial Position Sitting Pulse 87 Intake Visit Reasons: S/p egd- Ponce Intake Note: Patient follow up for EGD results. Patient cc: acid reflex on and off and some diarrhea come and go. Summer Internship Required: No Accompanied by: Self / Same As Patient Allergies No Known Allergies Allergy (Verified 05/25/23 11:56) Medication List - Last Reconciled 05/25/23 by Britney Ordonez PA-C albuterol sulfate 90 mcg/actuation 1 inh inhalation QID PRN albuterol sulfate 0.63 mg (3 mL) inhalation QID PRN budesonide 180 mcg/actuation (Pulmicort Flexhaler) 1 inh inhalation BID cariprazine (Vraylar) 6 mg PO DAILY 30 days cholecalciferol (vitamin D3) 25 mcg PO DAILY clonazepam 1 mg PO BID dextroamphetamine-amphetamine 30 mg ER 1 cap PO DAILY docusate sodium 200 mg (2 x 100 mg) PO BEDTIME escitalopram oxalate 10 mg PO DAILY esomeprazole magnesium (Nexium) 40 mg PO DAILY 30 days fluticasone propionate 50 mcg/actuation (Flonase Allergy Relief) 1 spray intranasal Q12H gabapentin 300 mg PO BID lithium carbonate 600 mg (2 x 300 mg) PO BEDTIME mirabegron ER (Myrbetriq) 25 mg PO DAILY 30 days mirtazapine 7.5 mg PO BEDTIME nebulizers (AeroEclipse II Nebulizer) As directed sertraline 200 mg (2 x 100 mg) PO DAILY 30 days simvastatin 20 mg PO BEDTIME sumatriptan succinate 50 mg PO DAILY MRX1 trazodone 50 mg PO BEDTIME PRN 30 days HPI HPI Comments History of Present Illness Details A 38-year-old female with persistent acid reflux follows up after recent EGD with Dr. Ponce- Pantoprazole 40 mg q.a.m. 30 minutes prior to eating or drinking Persistent acid reflux seems better times than others, she is unsure what actually makes it worse or better. She did quit smoking several months ago Appetite is good Bowel is her norm She says she has not put pinesol in her hair for some days- so I would not mention it ( she still has strong scent)- Is no nausea, vomiting, hematemesis, hematochezia fever chills Larynx:normal Esophagus: GE junction at 31? cm, diaphragm hiatus at 36 cm, consistent with fixed hiatal hernia, with streaky erythema noted in the hiatal sac. bx taken from distal and proximal esophagus. LES and UES stretched with CRE balloon to 19 mm, no tears seen. Stomach: Patchy gastric erythema. Biopsies were obtained. Grade 2 flap valve on retroflexed examination of the cardia. Duodenum: Normal bulb and descending duodenum, Intervention: Biopsies as noted above, balloon dilation [facility] Medical History (Updated 05/25/23 @ 12:35 by Britney Ordonez PA-C) Anemia Anxiety Asthma B12 deficiency Bipolar disorder, unspecified Borderline personality disorder Bronchitis Cervical cancer Clonidine overdose COPD (chronic obstructive pulmonary disease) Depression HLD (hyperlipidemia) Incontinence Migraines Polysubstance overdose Posttraumatic stress disorder Seasonal allergies Smoker Urinary frequency Surgical History History of bilateral tubal ligation History of esophagogastroduodenoscopy (EGD) History of total splenectomy Social History Household Members: Family Housing: Apartment Do you presently have visiting nurse or other home services: No Alcohol intake: never Patient Tobacco Use Status: Former Tobacco user Quit Date: 02/2023 Cigarette Packs Per Day: 1.5 Cigarettes Per Day: 30.0 Years Smoked: 15 Second Hand Smoke Exposure: Yes Substance Use Type: Marijuana service: No Current occupational status: disabled 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 Sexual orientation: Straight/Heterosexual Review of Systems Const All systems reviewed & are unremarkable except as noted in HPI and below Card Denies chest pain and Denies dyspnea Resp Denies dyspnea GI Denies abdominal pain and Reports heartburn Physical Exam Vital Signs: Last Vital Signs Pulse 87 05/25/23 12:03 BP 100/57 L 05/25/23 12:03 BMI result Body Mass Index 32.8 Const General: cooperative, comfortable and no acute distress Orientation/consciousness: patient oriented x3 Limitations: no limitations Resp Effort & Inspection: normal respiratory effort and able to speak in complete sentences Neuro General: patient oriented x3 Extrem General: Yes full ROM Psych Speech and movement: Clear speech present Affect: Labile affect present Results Reviewed Results Reviewed: Impression/Findings: hiatal hernia gastritis PLAN: reflux precautions if agrees referal for hernia repair confirm compliance with PPI and correct self administration Assessment & Plan Assessment & Plan (1) Acid reflux: Comment: Continue Nexium Code(s): K21.9 - Gastro-esophageal reflux disease without esophagitis (2) Dysphagia: Comment: Somewhat improved since EGD with dilation Code(s): R13.10 - Dysphagia, unspecified Plan: Continue to chew food well eat slowly (3) Hiatal hernia with gastroesophageal reflux: Code(s): K44.9 - Diaphragmatic hernia without obstruction or gangrene; K21.9 - Gastro- esophageal reflux disease without esophagitis Plan: Referred Dr. Mcallister-consult (4) Hiatal hernia with gastroesophageal reflux disease and esophagitis: Code(s): K44.9 - Diaphragmatic hernia without obstruction or gangrene; K21.00 - Gastro- esophageal reflux disease with esophagitis, without bleeding Plan: Referral to surgery Orders: Referrals General Surgery Referral K21.00 - Gastro-esophageal reflux disease with esophagitis, without bleeding, K44.9 - Diaphragmatic hernia without obstruction or gangrene Medications: Refilled esomeprazole magnesium (Nexium) 40 mg PO DAILY 30 days 30 caps 6RF Patient Instructions: 38-year-old female persistent acid reflux despite PPI follow-up after recent EGD Reviewed procedure report and path Agrees for consult with surgery to discuss hiatal hernia repair Continue pantoprazole 40 mg daily Reflux precautions reviewed Avoid culprits Avoid pinesol Encouraged to call questions or concerns Appreciate the opportunity assist in the care the patient Coding Level of Care Code Est Pt Level 3 (03608) Diagnoses Acid reflux K21.9 Dysphagia R13.10 Hiatal hernia with gastroesophageal reflux K44.9; K21.9 Hiatal hernia with gastroesophageal reflux disease and esophagitis K44.9; K21.00 Time Spent (min) 30
[2023-05-25 12:03] VITALS: BP 100/57; PULSE 87; BMI 32.8
== END 2023-05-25 14:07 | disposition home or self-care (01) ==
PROVIDERS: PCP Student in an Organized Health Care Education/Training Program; Visit Provider Physician Assistant
DX: K21.9 Gastro-esophageal reflux disease without esophagitis (principal); R13.10 Dysphagia, unspecified; K44.9 Diaphragmatic hernia without obstruction or gangrene; K21.00 Gastro-esophageal reflux disease with esophagitis, without bleeding
CPT/HCPCS: 99213

== ENCOUNTER → 2023-05-25 11:51 | Outpatient (BNVA) | payer MEDICARE, MEDICAID, SELFPAY | PROVIDERS: PCP Student in an Organized Health Care Education/Training Program; Visit Provider Physician Assistant | DX: K21.9 Gastro-esophageal reflux disease without esophagitis (principal); K44.9 Diaphragmatic hernia without obstruction or gangrene; K21.00 Gastro-esophageal reflux disease with esophagitis, without bleeding; R13.10 Dysphagia, unspecified | CPT/HCPCS: 99212 ==

== ENCOUNTER 2023-06-07 09:16 | Outpatient (REF) | payer MEDICARE, MEDICAID, SELFPAY ==
[2023-06-07 11:03] LABS: Lithium 0.39 mmol/L (0.60-1.20)
== END 2023-06-07 09:17 | disposition home or self-care (01) ==
LOC: HO.LAB 09:16
PROVIDERS: Visit Provider Clinical Nurse Specialist Psychiatric/Mental Health, Adult
DX: Z51.81 Encounter for therapeutic drug level monitoring (principal); Z79.899 Other long term (current) drug therapy
CPT/HCPCS: 36415; 80178

== ENCOUNTER 2023-06-14 10:13 | Outpatient (REF) | payer MEDICARE, MEDICAID, SELFPAY ==
[2023-06-14 12:44] LABS: Lithium 0.51 mmol/L (0.60-1.20)
== END 2023-06-14 10:14 | disposition home or self-care (01) ==
LOC: HO.LAB 10:13
PROVIDERS: Visit Provider Clinical Nurse Specialist Psychiatric/Mental Health, Adult
DX: N39.0 Urinary tract infection, site not specified (principal); Z79.899 Other long term (current) drug therapy; R35.0 Frequency of micturition; R32 Unspecified urinary incontinence
CPT/HCPCS: 36415; 51798; 80178; 87086; 99212

== ENCOUNTER 2023-06-14 10:54 | Outpatient (AMB) | payer MEDICARE, MEDICAID, SELFPAY ==
--- NOTE | 2023-06-14 10:58 | A.OFFVIS_ITS ---
Intake Intake Visit Reasons: 6w/PVR (no show 2x) Intake Note: Patient is present for follow up incontinence/frequency, blood in urine from Menstrual Period. Urology Medications: previously tolterodine, currently myrbetriq Blood Thinner: none PVR: 17ml Park Interpretive Specialist Required: No Accompanied by: Self / Same As Patient Allergies No Known Allergies Allergy (Verified 06/14/23 22:59) Medication List - Last Reconciled 06/14/23 by LOBO Mckay- albuterol sulfate 90 mcg/actuation 1 inh inhalation QID PRN albuterol sulfate 0.63 mg (3 mL) inhalation QID PRN budesonide 180 mcg/actuation (Pulmicort Flexhaler) 1 inh inhalation BID cariprazine (Vraylar) 6 mg PO DAILY 30 days cholecalciferol (vitamin D3) 25 mcg PO DAILY clonazepam 1 mg PO BID dextroamphetamine-amphetamine 30 mg ER 1 cap PO DAILY docusate sodium 200 mg (2 x 100 mg) PO BEDTIME escitalopram oxalate 10 mg PO DAILY esomeprazole magnesium (Nexium) 40 mg PO DAILY 30 days fluticasone propionate 50 mcg/actuation (Flonase Allergy Relief) 1 spray intranasal Q12H gabapentin 300 mg PO BID lithium carbonate 600 mg (2 x 300 mg) PO BEDTIME mirabegron ER (Myrbetriq) 25 mg PO DAILY 90 days mirtazapine 7.5 mg PO BEDTIME nebulizers (AeroEclipse II Nebulizer) As directed sertraline 200 mg (2 x 100 mg) PO DAILY 30 days simvastatin 20 mg PO BEDTIME sulfamethoxazole-trimethoprim 800-160 mg (Bactrim DS) 1 tab PO BID 7 days sumatriptan succinate 50 mg PO DAILY MRX1 trazodone 50 mg PO BEDTIME PRN 30 days HPI HPI Comments History of Present Illness Details Tammy is a pleasant 38 year old female who is a patient of Dr. Pina. She has a PMH of anxiety, depression, PTSD, bipolar, GERD, headaches, and insomnia. She presents to the office today for a follow up of her urinary incontinence. Of note patient was seen approximately 4 months ago at which time she was started on Myrbetriq 25 mg daily in scheduled to follow up within 6 weeks however was unable to and discusses her apologies for missing appointments. In discussion with the patient today she reports significant improvement in her urinary symptoms on 25 mg of Myrbetriq daily. She reports feeling her episodes of urinary incontinence have significantly decreased and reports feeling she is able to hold her urination and make it to the bathroom. In office urinalysis with 3+ leukocytes and positive nitrates however patient denies any UTI like symptoms at this time. She denies hematuria, dysuria, foul smelling urine, changes to urinary stream, flank pain, fever, and or chills. She discusses starting her menses yesterday. She otherwise reports to be happy with her current voiding parameters on 25 mg of Myrbetriq. She offers no issues or concerns at this time. Discussed and stressed at length the importance of drinking plenty of water daily. Discussed avoiding bladder triggers/irritants to assist with improvement in urinary symptoms. PVR 17ml's. Discussed near future in office cystoscopy is symptoms worsen and or persist. [facility] Medical History Anemia Anxiety Asthma B12 deficiency Bipolar disorder, unspecified Borderline personality disorder Bronchitis Cervical cancer Clonidine overdose COPD (chronic obstructive pulmonary disease) Depression HLD (hyperlipidemia) Incontinence Migraines Polysubstance overdose Posttraumatic stress disorder Seasonal allergies Smoker Urinary frequency Surgical History History of bilateral tubal ligation History of esophagogastroduodenoscopy (EGD) History of total splenectomy Family History Father No problems noted. Mother No problems noted. Social History Household Members: Family Housing: Apartment Do you presently have visiting nurse or other home services: No Alcohol intake: never Patient Tobacco Use Status: Former Tobacco user Quit Date: 02/2023 Cigarette Packs Per Day: 1.5 Cigarettes Per Day: 30.0 Years Smoked: 15 Second Hand Smoke Exposure: Yes Substance Use Type: Marijuana service: No Current occupational status: disabled 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 Sexual orientation: Straight/Heterosexual Review of Systems Const Reports as per HPI Eyes Reports no additional complaints ENT Reports no additional complaints Card Reports no additional complaints Resp Reports no additional complaints GI Reports no additional complaints Reports as per HPI Musc Details: Reports as per HPI Psych Reports as per HPI Physical Exam Const General: cooperative, comfortable, no acute distress, well developed, alert and awake Orientation/consciousness: patient oriented x3 Limitations: no limitations HEENT Head: Yes normal to inspection Ears: hearing grossly normal bilaterally Eyes General: appearance normal, both eyes and all related structures Neck Neck: Yes normal visual inspection and Yes trachea midline Chest Chest palpation & inspection: normal inspection of the chest Cardio Rate: regular rate GI Inspection: Yes normal to inspection General: Yes no CVA tenderness Back/Spine/Pelvis Back: no CVA tenderness Neuro General: patient oriented x3 Extrem General: Yes normal to inspection Psych Mental Status: mental status grossly normal Speech and movement: Normal speech and movement present and Clear speech present Affect: Other affect and mood findings present (flat affect ) Attitude: cooperative Insight: Fair insight present (Psych) Judgement: Fair judgement present (Psych) Office Procedures Post Void Residual Post Residual Void Post Void Residual (PVR): 17 [id number] Void Residual by ultrasound Results AMB Urinalysis, Automated UA Leukoctes 500 Rosalino/uL Last Edit by CINTHYA Morales on 06/14/23 11:26 3+ Kobi Rodriguez 06/14/23 11:26 UA Nitrite Positive Last Edit by CINTHYA Morales on 06/14/23 11:26 UA Urobilinogen 0.2 mg/dL Last Edit by CINTHYA Morales on 06/14/23 11:2 6 UA Protein 300 mg/dL Last Edit by CINTHYA Morales on 06/14/23 11:26 3+ Kobi Rodriguez 06/14/23 11:26 UA pH 6.0 Last Edit by CINTHYA Morales on 06/14/23 11:26 UA Blood 200 Guillermo/uL Last Edit by CINTHYA Morales on 06/14/23 11:26 3+ Kobi Rodriguez 06/14/23 11:26 UA Specific Jackson 1.030 Last Edit by CINTHYA Morales on 06/14/23 11: 26 UA Ketone Positive Last Edit by CINTHYA Morales on 06/14/23 11:26 5mg Kobi Rodriguez 06/14/23 11:26 UA Bilirubin 0 mg/dL Last Edit by CINTHYA Morales on 06/14/23 11:26 UA Glucose 0 mg/dL Last Edit by CINTHYA Morales on 06/14/23 11:26 Results Reviewed Results Reviewed: Laboratory Last Values Urine pH (Auto) 6.0 06/14/23 11:04 Specific Jackson (Auto) 1.030 06/14/23 11:04 Urine Protein (Auto) 300 mg/dL 06/14/23 11:04 Glucose (UA)(Auto) 0 mg/dL 06/14/23 11:04 Urine Ketones (Auto) Positive 06/14/23 11:04 Urine Blood (Auto) 200 Guillermo/uL 06/14/23 11:04 Urine Nitrite (Auto) Positive 06/14/23 11:04 Urine Bilirubin (Auto) 0 mg/dL 06/14/23 11:04 Urine Urobilinogen (Auto) 0.2 mg/dL 06/14/23 11:04 Leukocyte Esterase (Auto) 500 Rosalino/uL 06/14/23 11:04 Assessment & Plan Assessment & Plan (1) Urinary frequency: Code(s): R35.0 - Frequency of micturition (2) Incontinence: Code(s): R32 - Unspecified urinary incontinence (3) Urinary tract infection: Code(s): N39.0 - Urinary tract infection, site not specified Plan In office urinalysis results reviewed with the patient today; as noted above; will send for urine culture. Patient denies any UTI like symptoms at this time. Start Bactrim as discussed and prescribed. Continue Myrbetriq as discussed and prescribed. PVR 17 mL. Discussed and stressed the importance of drinking plenty of water daily. Discussed if symptoms arise and or patient experiences nausea, vomiting, flank pain, fever, and or chills to seek medical treatment. Discussed bladder triggers/irritants at length. Follow-up in 1 month with PVR; or sooner with any issues, concerns, and or questions. Orders: Orders Urine Culture Today N39.0 - Urinary tract infection, site not specified AMB Urinalysis Automated Today Z13.9 - Encounter for screening, unspecified AMB Post Void Residual by ultrasound Today N39.8 - Other specified disorders of urinary system Medications: New sulfamethoxazole-trimethoprim 800-160 mg (Bactrim DS) 1 tab PO BID 7 days 14 tabs 0RF N39.0 - Urinary tract infection, site not specified Patient Instructions: The patient had an opportunity to ask questions regarding the treatment plan. All questions were answered. Physical exam, labs, and imaging were discussed and reviewed in detail. As well as risks, benefits, and discussion of treatment choices. No major barriers to understanding were identified. The patient expressed understanding and agreement with the above treatment plan. The patient was made aware they should contact our office by phone for worsening of their current condition, the appearance of new symptoms, or with any questions or concerns. Compliance is encouraged with any medications and follow up testing that is ordered. It is a privilege to be allowed the opportunity to participate in? your urological care.? Again, if you have any questions or concerns If you have any questions or concerns please do not hesitate to contact me. The office is [phone]. This note is constructed using voice recognition software. While every effort has been made to ensure accuracy office clin asst errors may have been included. Yours sincerely, SRI Mckay Coding Level of Care Code Est Pt Level 4 (81495) Diagnoses Urinary frequency R35.0 Incontinence R32 Urinary tract infection N39.0 CPT Codes Post Residual Void - PVR CPT Code: 25410-Qcsy Void Residual by ultrasound ([id number])
== END 2023-06-14 12:03 | disposition home or self-care (01) ==
PROVIDERS: PCP Student in an Organized Health Care Education/Training Program; Visit Provider Nurse Practitioner Family
DX: R35.0 Frequency of micturition (principal); R32 Unspecified urinary incontinence; N39.0 Urinary tract infection, site not specified
CPT/HCPCS: 99214

== ENCOUNTER 2023-07-01 09:33 | Outpatient (REF) | payer MEDICARE, MEDICAID, SELFPAY ==
[2023-07-01 12:13] LABS: Lithium 0.86 mmol/L (0.60-1.20)
== END 2023-07-01 09:34 | disposition home or self-care (01) ==
LOC: HO.LAB 09:33
PROVIDERS: PCP Student in an Organized Health Care Education/Training Program; Visit Provider Clinical Nurse Specialist Psychiatric/Mental Health, Adult
DX: Z79.899 Other long term (current) drug therapy (principal)
CPT/HCPCS: 36415; 80178

== ENCOUNTER 2023-07-15 09:19 | Outpatient (AMB) | payer MEDICARE, MEDICAID, SELFPAY ==
--- NOTE | 2023-07-15 09:55 | A.OFFVIS_ITS ---
Intake Intake Visit Reasons: 1m/PVR Intake Note: Patient presents for follow up incontinence/frequency Urology Medications: myrbetriq Blood Thinner: none PVR: 15ml's Foreign Exchange Student Coordinator Required: No Accompanied by: Self / Same As Patient Allergies No Known Allergies Allergy (Verified 07/15/23 10:13) Medication List - Last Reconciled 07/15/23 by EDUARDO MckayP- albuterol sulfate 90 mcg/actuation 1 inh inhalation QID PRN albuterol sulfate 0.63 mg (3 mL) inhalation QID PRN budesonide 180 mcg/actuation (Pulmicort Flexhaler) 1 inh inhalation BID cariprazine (Vraylar) 6 mg PO DAILY 30 days cholecalciferol (vitamin D3) 25 mcg PO DAILY clonazepam 1 mg PO BID dextroamphetamine-amphetamine 30 mg ER 1 cap PO DAILY docusate sodium 200 mg (2 x 100 mg) PO BEDTIME escitalopram oxalate 10 mg PO DAILY esomeprazole magnesium (Nexium) 40 mg PO DAILY 30 days fluticasone propionate 50 mcg/actuation (Flonase Allergy Relief) 1 spray intranasal Q12H gabapentin 300 mg PO BID lithium carbonate 600 mg (2 x 300 mg) PO BEDTIME mirabegron ER (Myrbetriq) 25 mg PO DAILY 90 days mirtazapine 7.5 mg PO BEDTIME nebulizers (AeroEclipse II Nebulizer) As directed sertraline 200 mg (2 x 100 mg) PO DAILY 30 days simvastatin 20 mg PO BEDTIME sumatriptan succinate 50 mg PO DAILY MRX1 trazodone 50 mg PO BEDTIME PRN 30 days HPI HPI Comments History of Present Illness Details Tammy is a pleasant 38 year old female who is a patient of Dr. Pina. She has a PMH of anxiety, depression, PTSD, bipolar, GERD, headaches, and insomnia. Of note, patient was seen approximately 1 month ago at which time she was treated with Bactrim for a urinary tract infection. She presents to the office today for a follow up of her recent UTI and her urinary incontinence. When asked she reports to be working with her CHD worker to adjust her psychological medications. When asked she reports to be doing better with her urinary incontinence on Myrbetriq and would like to continue. In office urinalysis results reviewed with the patient today. When asked she denies hematuria, dysuria, foul smelling urine, changes to urinary stream, flank pain, fever, and or chills. She otherwise reports to be happy with her current voiding parameters on 25 mg of Myrbetriq. She offers no issues or concerns at this time. Discussed and stressed at length the importance of drinking plenty of water daily. Discussed avoiding bladder triggers/irritants to assist with improvement in urinary symptoms. PVR 15ml's. Previous workup has included a retroperitoneal ultrasound noting a few scattered echogenic foci in both kidneys. No echogenic stones or hydronephrosis. Small postvoid residual bladder volume. Normal bilateral ureteral jets seen. Discussed near future in office cystoscopy is symptoms worsen and or persist. [facility] Medical History Pre-op evaluation Seasonal allergies Urinary frequency Incontinence HLD (hyperlipidemia) Clonidine overdose Polysubstance overdose Asthma Bronchitis Smoker Posttraumatic stress disorder Borderline personality disorder Bipolar disorder, unspecified B12 deficiency Anemia Migraines Cervical cancer COPD (chronic obstructive pulmonary disease) Depression Anxiety Surgical History History of esophagogastroduodenoscopy (EGD) History of bilateral tubal ligation History of total splenectomy Family History Father No problems noted. Mother No problems noted. Social History Household Members: Family Housing: Apartment Do you presently have visiting nurse or other home services: No Alcohol intake: never Patient Tobacco Use Status: Former Tobacco user Quit Date: 02/2023 Cigarette Packs Per Day: 1.5 Cigarettes Per Day: 30.0 Years Smoked: 15 Second Hand Smoke Exposure: Yes Substance Use Type: Marijuana service: No Current occupational status: disabled 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 Sexual orientation: Straight/Heterosexual Review of Systems Const Reports as per HPI Eyes Reports no additional complaints ENT Reports no additional complaints Card Reports no additional complaints Resp Reports no additional complaints GI Reports no additional complaints Reports as per HPI Musc Details: Reports as per HPI Psych Reports as per HPI Physical Exam Const General: cooperative, comfortable, no acute distress, well developed, alert and awake Orientation/consciousness: patient oriented x3 Limitations: no limitations HEENT Head: Yes normal to inspection Ears: hearing grossly normal bilaterally Eyes General: appearance normal, both eyes and all related structures Neck Neck: Yes normal visual inspection and Yes trachea midline Chest Chest palpation & inspection: normal inspection of the chest Cardio Rate: regular rate GI Inspection: Yes normal to inspection General: Yes no CVA tenderness Back/Spine/Pelvis Back: no CVA tenderness Neuro General: patient oriented x3 Extrem General: Yes normal to inspection Psych Mental Status: mental status grossly normal Speech and movement: Normal speech and movement present and Clear speech present Affect: Other affect and mood findings present (flat affect ) Attitude: cooperative Insight: Fair insight present (Psych) Judgement: Fair judgement present (Psych) Office Procedures Post Void Residual Post Residual Void Post Void Residual (PVR): 15 [id number] Void Residual by ultrasound Results AMB Urinalysis, Automated UA Leukoctes 70 Rosalino/uL Last Edit by SDI on 07/15/23 09:58 UA Nitrite Last Edit by SDI on 07/15/23 09:58 UA Urobilinogen 0.2 mg/dL Last Edit by SDI on 07/15/23 09:58 UA Protein 0 mg/dL Last Edit by SDI on 07/15/23 09:58 UA pH 6.5 Last Edit by SDI on 07/15/23 09:58 UA Blood 0 Guillermo/uL Last Edit by SDI on 07/15/23 09:58 UA Specific [place] 1.010 Last Edit by SDI on 07/15/23 09:58 UA Ketone Last Edit by SDI on 07/15/23 09:58 UA Bilirubin 0 mg/dL Last Edit by SDI on 07/15/23 09:58 UA Glucose 0 mg/dL Last Edit by SDI on 07/15/23 09:58 Results Reviewed Results Reviewed: Laboratory Last Values Urine pH (Auto) 6.5 07/15/23 09:57 Specific [place] (Auto) 1.010 07/15/23 09:57 Urine Protein (Auto) 0 mg/dL 07/15/23 09:57 Glucose (UA)(Auto) 0 mg/dL 07/15/23 09:57 Urine Blood (Auto) 0 Guillermo/uL 07/15/23 09:57 Urine Bilirubin (Auto) 0 mg/dL 07/15/23 09:57 Urine Urobilinogen (Auto) 0.2 mg/dL 07/15/23 09:57 Leukocyte Esterase (Auto) 70 Rosalino/uL 07/15/23 09:57 Assessment & Plan Assessment & Plan (1) Urinary frequency: Code(s): R35.0 - Frequency of micturition (2) Incontinence: Code(s): R32 - Unspecified urinary incontinence Plan In office urinalysis results reviewed with the patient today; as noted above. PVR 15 mL. Patient reports be happy with current voiding parameters on Myrbetriq; refill provided. Discussed, educated, and stressed the importance of drinking plenty of water daily. Discussed timed voiding Discussed UTI prevention with D mannose supplement, vitamin-C, increasing fluid intake, behavioral therapy with timed voiding, perineal hygiene and postcoital voiding, and management of constipation with stool softeners and increased fiber intake. Follow-up in 6 months with PVR; or sooner with any issues, concerns, and or questions. Orders: Orders AMB Post Void Residual by ultrasound 07/15/23 N39.0 - Urinary tract infection, site not specified AMB Urinalysis Automated 07/15/23 Z13.9 - Encounter for screening, unspecified Medications: Changed From mirabegron ER (Myrbetriq) 25 mg PO DAILY 90 days 90 tabs 1RF N30.10 - Interstitial cystitis (chronic) without hematuria, N32.81 - Overactive bladder, R35.1 - Nocturia, R39.15 - Urgency of urination To mirabegron ER (Myrbetriq) 50 mg (2 x 25 mg) PO DAILY 90 days 180 tabs 1RF N30.10 - Interstitial cystitis (chronic) without hematuria, N32.81 - Overactive bladder, R35.1 - Nocturia, R39.15 - Urgency of urination Patient Instructions: The patient had an opportunity to ask questions regarding the treatment plan. All questions were answered. Physical exam, labs, and imaging were discussed and reviewed in detail. As well as risks, benefits, and discussion of treatment choices. No major barriers to understanding were identified. The patient expressed understanding and agreement with the above treatment plan. The patient was made aware they should contact our office by phone for worsening of their current condition, the appearance of new symptoms, or with any questions or concerns. Compliance is encouraged with any medications and follow up testing that is ordered. It is a privilege to be allowed the opportunity to participate in? your urological care.? Again, if you have any questions or concerns If you have any questions or concerns please do not hesitate to contact me. The office is [phone]. This note is constructed using voice recognition software. While every effort has been made to ensure accuracy state auditor errors may have been included. Yours sincerely, LOBO Mckay-MAXIMILIANO Coding Level of Care Code Est Pt Level 3 (73247) Diagnoses Urinary frequency R35.0 Incontinence R32 CPT Codes Post Residual Void - PVR CPT Code: 05893-Zete Void Residual by ultrasound ([id number])
== END 2023-07-15 10:21 | disposition home or self-care (01) ==
PROVIDERS: PCP Student in an Organized Health Care Education/Training Program; Visit Provider Nurse Practitioner Family
DX: R35.0 Frequency of micturition (principal); R32 Unspecified urinary incontinence
CPT/HCPCS: 99213

== ENCOUNTER → 2023-07-15 09:19 | Outpatient (BNVA) | payer MEDICARE, MEDICAID, SELFPAY | PROVIDERS: PCP Student in an Organized Health Care Education/Training Program; Visit Provider Nurse Practitioner Family | DX: R35.0 Frequency of micturition (principal); R32 Unspecified urinary incontinence | CPT/HCPCS: 51798; 81003; 99212 ==

== ENCOUNTER 2023-07-18 11:18 | Outpatient (REF) | payer MEDICARE, MEDICAID, SELFPAY ==
--- NOTE | 2023-07-18 12:09 | PFT_ITS ---
INDICATION: Asthma. SPIROMETRY: FEV1 to FVC of 78% with an FEV1 of 2.68 L, which is 91% predicted and FVC of 3.42 L, which is 95% predicted. There was no significant response to bronchodilators noted. Maximum voluntary ventilation 56% predicted. LUNG VOLUMES: Total capacity 95% predicted with a residual volume of 119% predicted and an expiratory reserve volume of 31% predicted. DIFFUSION CAPACITY: DLCO 78% predicted. COMPARISONS: None. INTERPRETATION: No obstructive nor restrictive ventilatory defects identified. There is a significant response to bronchodilators noted. The patient also has a moderate decrease in the maximum voluntary ventilation, which could be secondary to deconditioning and also worsening dynamic inspiratory capacity. Lung volumes do demonstrate a trend of air trapping, and there is also a mild diffusion impairment. Clinical correlation warranted. MD SKINNY Velasquez/MODL / [id number]
== END 2023-07-18 11:19 | disposition home or self-care (01) ==
LOC: HO.RESP 11:18
PROVIDERS: PCP Student in an Organized Health Care Education/Training Program; Visit Provider Internal Medicine
DX: Z01.818 Encounter for other preprocedural examination (principal); J45.909 Unspecified asthma, uncomplicated; F17.200 Nicotine dependence, unspecified, uncomplicated
CPT/HCPCS: 94010; 94727; 94729

== ENCOUNTER → 2023-07-18 12:09 | Outpatient (BNV) | payer MEDICARE, MEDICAID, SELFPAY | PROVIDERS: PCP Student in an Organized Health Care Education/Training Program; Visit Provider Hospitalist | DX: J45.909 Unspecified asthma, uncomplicated (principal); J43.9 Emphysema, unspecified | CPT/HCPCS: 94060; 94727; 94729 ==

== ENCOUNTER 2023-07-20 09:23 | Outpatient (AMB) | payer MEDICARE, MEDICAID, SELFPAY ==
[2023-07-20 09:35] VITALS: BP 102/70; PULSE 79; O2SAT 97; BMI 31.5
--- NOTE | 2023-07-20 09:35 | MHC.OFFVIS ---
Intake Vital Signs 07/20/23 09:35 Height 5 ft 3 in Weight 178 lb BMI 31.5 BP 102/70 Blood Pressure Location Lt brachial Position Sitting Pulse 79 Pulse Source Pulse Oximeter Pulse Oximetry (%) 97 Oxygen Delivery Method Room Air Intake Visit Reasons: hiatel hernia surgery [facility] Intake Note: pt is here for pre-op clearance for hiatel hernia surgery at [facility] unknown date at this time, waiting for clearance. 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 Allergies No Known Allergies Allergy (Verified 07/20/23 09:49) Medication List - Last Reconciled 07/20/23 by Ana Ricks MD albuterol sulfate 90 mcg/actuation 1 inh inhalation QID PRN albuterol sulfate 0.63 mg (3 mL) inhalation QID PRN budesonide 180 mcg/actuation (Pulmicort Flexhaler) 1 inh inhalation BID cariprazine (Vraylar) 6 mg PO DAILY 30 days cholecalciferol (vitamin D3) 25 mcg PO DAILY clonazepam 1 mg PO BID dextroamphetamine-amphetamine 30 mg ER 1 cap PO DAILY docusate sodium 200 mg (2 x 100 mg) PO BEDTIME escitalopram oxalate 10 mg PO DAILY esomeprazole magnesium (Nexium) 40 mg PO DAILY 30 days fluticasone propionate 50 mcg/actuation (Flonase Allergy Relief) 1 spray intranasal Q12H gabapentin 300 mg PO BID lithium carbonate 600 mg (2 x 300 mg) PO BEDTIME mirabegron ER (Myrbetriq) 50 mg (2 x 25 mg) PO DAILY 90 days mirtazapine 7.5 mg PO BEDTIME nebulizers (AeroEclipse II Nebulizer) As directed sertraline 200 mg (2 x 100 mg) PO DAILY 30 days simvastatin 20 mg PO BEDTIME sumatriptan succinate 50 mg PO DAILY MRX1 trazodone 50 mg PO BEDTIME PRN 30 days Do you need a note to return to daycare/school/sports/work: No HPI hiatel hernia surgery [facility] HPI Details THIS 38 YEARS OLD FEMALE WITH LONGSTANDING DIAGNOSIS OF BRONCHIAL ASTHMA, AND MULTIPLE CO-MORBIDITIES ESPECIALLY CHRONIC ANXIETY, DEPRESSION AND BIPOLAR DISORDER, COMES FOR A [place]-OP EVALUATION SHE WILL BE GETTING SURGERY FOR HIATAL HERNIA AT [facility]. THE DAYS HER ASTHMA IS WELL CONTROLLED AND SHE HAS ONLY OCCASIONAL COUGH AND WHEEZING. SHE HAS HAD NO RECENT. RESPIRATORY INFECTION SHE CONTINUES TO USE PULMICORT.-180 1 INHALATION B.I.D. AND USES ALBUTEROL INHALER ONLY ONCE IN A WHILE. SHE DID HAVE PULMONARY FUNCTION TEST ON 07/18/2023, WHICH SHOWED ONLY MILD AND COMPLETELY REVERSIBLE OBSTRUCTIVE DISORDER, C/W BRONCHIAL ASTHMA. [facility] Medical History Pre-op evaluation Seasonal allergies Urinary frequency Incontinence HLD (hyperlipidemia) Clonidine overdose Polysubstance overdose Asthma Bronchitis Smoker Posttraumatic stress disorder Borderline personality disorder Bipolar disorder, unspecified B12 deficiency Anemia Migraines Cervical cancer COPD (chronic obstructive pulmonary disease) Depression Anxiety Surgical History History of esophagogastroduodenoscopy (EGD) History of bilateral tubal ligation History of total splenectomy Family History Father No problems noted. Mother No problems noted. Social History Household Members: Family Housing: Apartment Do you presently have visiting nurse or other home services: No Alcohol intake: never Patient Tobacco Use Status: Former Tobacco user Quit Date: 02/2023 Cigarette Packs Per Day: 1.5 Cigarettes Per Day: 30.0 Years Smoked: 15 Second Hand Smoke Exposure: Yes Substance Use Type: Marijuana service: No Current occupational status: disabled 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 Sexual orientation: Straight/Heterosexual Review of Systems Const All systems reviewed & are unremarkable except as noted in HPI and below Reports headache(s) (MIGRAINS ) ENT Reports headache(s) (MIGRAINS ) and Reports nasal congestion (MILD , INTERMITTENT .) Resp Reports cough (FREQUENT , DRY . ) Neuro Reports headache(s) (MIGRAINS ) Psych Reports anxiety and Reports depression Physical Exam Vital Signs: Last Vital Signs Pulse 79 07/20/23 09:35 BP 102/70 07/20/23 09:35 Pulse Ox 97 07/20/23 09:35 Oxygen Delivery Method Room Air 07/20/23 09:35 BMI result Body Mass Index 31.5 Const General: healthy appearing (OVERWEIGHT ,), comfortable, no acute distress, alert and awake Orientation/consciousness: patient oriented x3 HEENT Head: Yes normal to inspection General nose exam: No nasal polyps present and No nasal discharge present Face and sinus: Yes sinuses nontender Mouth: oropharynx abnormals (MILD ERYTHEMA OF THE PHARYNGEAL MUCOSA, NO EXUDATES ) Throat: Yes posterior oropharynx normal Eyes General: appearance normal, both eyes and all related structures Neck Neck: Yes normal visual inspection, Yes no lymphadenopathy, Yes trachea midline and Yes no JVD Thyroid: Thyroid normal Chest Chest palpation & inspection: normal inspection of the chest, normal palpation of entire chest wall and no tenderness Resp Effort & Inspection: normal respiratory effort and able to speak in complete sentences Auscultation: clear to auscultation bilaterally, no crackles and wheezes (A FEW INSPIRATORY WHEEZES ON THE LT SIDE ) Cardio Palpation: normal PMI Rate: regular rate Rhythm: regular rhythm Heart sounds: no gallops and no murmurs Peripheral pulses: Peripheral pulses 2+ throughout GI Palpation (GI): Soft to palpation, nontender, No hepatosplenomegaly present and no masses Auscultation: normal bowel sounds Back/Spine/Pelvis Thoracic/Lumbar Spine: thoracic and lumbar spine normal to inspection Skin General skin exam: no rashes or lesions noted Neuro General: patient oriented x3 and no focal motor deficits Cranial nerves: Yes CN's II-XII intact bilaterally Extrem General: Yes normal to inspection, Yes no clubbing, cyanosis or edema, Yes no calf tenderness and No venous stasis dermatitis Psych Appearance: grossly normal and well kempt Speech and movement: Normal speech and movement present Results Reviewed Results Reviewed: PULMONARY FUNCTION TEST ON 07/18/2023. FVC 83%, FEV1 74%,,FEF 25-75 55% AND MVV 56% . POST BRONCHODILATOR THERAPY THERE WAS MARKED IMPROVEMENT TO NORMAL LEVEL Assessment & Plan Assessment & Plan (1) Pre-op evaluation: Comment: PATIENT HAS BRONCHIAL ASTHMA IS WELL CONTROLLED AT THIS TIME, NO CONTRAINDICATION TO PLANNED SURGERY IS NOTED. Code(s): Z01.818 - Encounter for other preprocedural examination (2) Asthma: Comment: SHE HAS HISTORY OF CHRONIC BRONCHIAL ASTHMA. PULMONARY FUNCTION TEST ON 07/18/2023 SHOWS MILD OBSTRUCTIVE AIRWAY DISORDER WHICH IS COMPLETELY REVERSED AFTER BRONCHODILATOR THERAPY. THE RESULTS ARE CONSISTENT WITH BRONCHIAL ASTHMA. TX: CONTINUE TO USE PULMICORT TWIST HALER 180 MCG PER ACTUATION 1 INHALATION B.I.D. USE PROAIR 2 PUFFS Q 4-6 HOURS P.R.N., ALTERNATELY MAY USE ALBUTEROL SOLUTION 0.63 MG IN 3 ML Q 4-6 HOURS P.R.N.. Code(s): J45.909 - Unspecified asthma, uncomplicated (3) Smoker: Comment: PATIENT HAS BEEN A HEAVY SMOKER, UP TO 2 PACKS A DAY. LUCKILY SHE QUIT SMOKING A FEBRUARY 2023 AND SO FOR IS RESISTING GOING BACK TO SMOKING. SHE IS COMMENDED FOR QUITTING AND ENCOURAGED TO STAY FREE OF SMOKING . Code(s): F17.200 - Nicotine dependence, unspecified, uncomplicated Plan FAR PREOP EVALUATION CONCERNED, FROM PULMONARY POINT OF VIEW SHE IS CLEARED AND NO CONTRAINDICATION TO SURGERY IS NOTED. ADVISED TO CONTINUE USING HER PULMICORT. INHALER TWICE A DAY SHE MAY USE HER ALBUTEROL HFA Q 4-6 HOURS P.R.N., AND POSTOPERATIVELY MAY BE BETTER OF USING ALBUTEROL BY THE NEBULIZER Q 4-6 HOURS P.R.N.. Coding Level of Care Code Est Pt Level 4 (29865) Diagnoses Pre-op evaluation Z01.818 Asthma J45.909 Smoker F17.200
== END 2023-07-20 09:49 | disposition home or self-care (01) ==
PROVIDERS: PCP Student in an Organized Health Care Education/Training Program; Visit Provider Internal Medicine
DX: Z01.818 Encounter for other preprocedural examination (principal); J45.909 Unspecified asthma, uncomplicated; F17.200 Nicotine dependence, unspecified, uncomplicated
CPT/HCPCS: 99214

== ENCOUNTER → 2023-07-20 09:23 | Outpatient (BNVA) | payer MEDICARE, MEDICAID, SELFPAY | PROVIDERS: PCP Student in an Organized Health Care Education/Training Program; Visit Provider Internal Medicine | DX: Z01.818 Encounter for other preprocedural examination (principal); J45.909 Unspecified asthma, uncomplicated; F17.200 Nicotine dependence, unspecified, uncomplicated | CPT/HCPCS: 99212 ==

== ENCOUNTER 2023-08-25 08:36 | Outpatient (REF) | payer MEDICARE, MEDICAID, SELFPAY ==
[2023-08-25 09:51] LABS: Lithium 0.65 mmol/L (0.60-1.20)
== END 2023-08-25 08:37 | disposition home or self-care (01) ==
LOC: HO.LAB 08:36
PROVIDERS: PCP Student in an Organized Health Care Education/Training Program; Visit Provider Clinical Nurse Specialist Psychiatric/Mental Health, Adult
DX: Z79.899 Other long term (current) drug therapy (principal)
CPT/HCPCS: 36415; 80178

== ENCOUNTER 2023-10-03 13:37 | Outpatient (REF) | payer MEDICARE, MEDICAID, SELFPAY ==
[2023-10-03 15:04] LABS: Appearance Urine Cloudy; Color Urine Dark Yellow; Glucose Urine UA Negative (Negative); Leukocyte Esterase Urine Moderate (2+) (Negative); Nitrite Urine Negative (Negative); Specific Gravity - Urine >= 1.030 (1.005-1.025); UMIC TRIGGER UA YES; Urine Blood Negative (Negative); Urine Ketones Trace mg/dL (Negative); Urine Protein 100 (2+) mg/dL (Neg-Trace)
[2023-10-03 15:24] LABS: Bacteria Urine 4+ (None Seen); Squamous Epithelial Cell Urine >20 /HPF (0-2); WBC Urine >50 /HPF (0-5)
== END 2023-10-03 13:38 | disposition home or self-care (01) ==
LOC: HO.LAB 13:37
PROVIDERS: PCP Student in an Organized Health Care Education/Training Program; Visit Provider Nurse Practitioner Family
DX: N39.0 Urinary tract infection, site not specified (principal)
CPT/HCPCS: 81001; 87086

== ENCOUNTER 2023-11-01 13:30 | Outpatient (AMB) | payer MEDICARE, MEDICAID, SELFPAY ==
--- NOTE | 2023-11-01 13:40 | A.OFFVIS_ITS ---
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 Accompanied by: Self / Same As Patient Allergies No Known Allergies Allergy (Verified 11/01/23 14:10) Medication List - Last Reconciled 11/01/23 by LOBO Mckay- albuterol sulfate 90 mcg/actuation 1 inh inhalation QID PRN albuterol sulfate 0.63 mg (3 mL) inhalation QID PRN budesonide 180 mcg/actuation (Pulmicort Flexhaler) 1 inh inhalation BID cariprazine (Vraylar) 6 mg PO DAILY 30 days cholecalciferol (vitamin D3) 25 mcg PO DAILY clonazepam 1 mg PO BID dextroamphetamine-amphetamine 30 mg ER 1 cap PO DAILY docusate sodium 200 mg (2 x 100 mg) PO BEDTIME escitalopram oxalate 10 mg PO DAILY esomeprazole magnesium (Nexium) 40 mg PO DAILY 30 days fluticasone propionate 50 mcg/actuation (Flonase Allergy Relief) 1 spray intranasal Q12H gabapentin 300 mg PO BID lithium carbonate 600 mg (2 x 300 mg) PO BEDTIME mirabegron ER (Myrbetriq) 50 mg (2 x 25 mg) PO DAILY 90 days mirtazapine 7.5 mg PO BEDTIME nebulizers (AeroEclipse II Nebulizer) As directed nitrofurantoin monohyd/m-cryst 100 mg (Macrobid) 100 mg PO BID 10 days sertraline 200 mg (2 x 100 mg) PO DAILY 30 days simvastatin 20 mg PO BEDTIME sumatriptan succinate 50 mg PO DAILY MRX1 trazodone 50 mg PO BEDTIME PRN 30 days HPI HPI Comments History of Present Illness Details Tammy is a pleasant 38 year old female who is a patient of Dr. Pina. She has a PMH of anxiety, depression, PTSD, bipolar, GERD, headaches, and insomnia. She presents to the office today for follow-up of her overactive bladder and recurrent urinary tract infections. In discussion with the patient today she reports noting UTI like symptoms approximately 1 month ago however the symptoms have somewhat subsided. She reports noting dysuria with increased episodes of urinary urgency. A urine culture was obtained during the symptoms noting mixed bacteria therefore recommendations were made for follow-up microgen testing for further assessment and evaluation. When asked patient reports compliance with 25 mg of Myrbetriq daily in office urinalysis results reviewed with the patient today. PVR 0 mL. Discussed at length potential causes for lower urinary tract symptoms patient had been experiencing. She currently denies any bothersome urinary issues or concerns. When asked she denies hematuria, dysuria, foul smelling urine, changes to urinary stream, flank pain, fever, and or chills. She otherwise reports to be happy with her current voiding parameters on 25 mg of Myrbetriq. She offers no issues or concerns at this time. Discussed and stressed at length the importance of drinking plenty of water daily. Discussed avoiding bladder triggers/irritants to assist with improvement in urinary symptoms. Previous workup has included a retroperitoneal ultrasound noting a few scattered echogenic foci in both kidneys. No echogenic stones or hydronephrosis. Small postvoid residual bladder volume. Normal bilateral ureteral jets seen. Discussed near future in office cystoscopy if symptoms arise. [facility] Medical History Pre-op evaluation Seasonal allergies Urinary frequency Incontinence HLD (hyperlipidemia) Clonidine overdose Polysubstance overdose Asthma Bronchitis Smoker Posttraumatic stress disorder Borderline personality disorder Bipolar disorder, unspecified B12 deficiency Anemia Migraines Cervical cancer COPD (chronic obstructive pulmonary disease) Depression Anxiety Surgical History History of esophagogastroduodenoscopy (EGD) History of bilateral tubal ligation History of total splenectomy Family History Father No problems noted. Mother No problems noted. Social History Household Members: Family Housing: Apartment Do you presently have visiting nurse or other home services: No Alcohol intake: never Comment: 1:1 sitter Patient Tobacco Use Status: Former Tobacco user Quit Date: 02/2023 Cigarette Packs Per Day: 1.5 Cigarettes Per Day: 30.0 Years Smoked: 15 Second Hand Smoke Exposure: Yes Substance Use Type: Marijuana service: No Current occupational status: disabled 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 Sexual orientation: Straight/Heterosexual Review of Systems Const Reports as per HPI Eyes Reports no additional complaints ENT Reports no additional complaints Card Reports no additional complaints Resp Reports no additional complaints GI Reports no additional complaints Reports as per HPI Musc Details: Reports as per HPI Psych Reports as per HPI Physical Exam Const General: cooperative, comfortable, no acute distress, well developed, alert and awake Orientation/consciousness: patient oriented x3 Limitations: no limitations HEENT Head: Yes normal to inspection Ears: hearing grossly normal bilaterally Eyes General: appearance normal, both eyes and all related structures Neck Neck: Yes normal visual inspection and Yes trachea midline Chest Chest palpation & inspection: normal inspection of the chest Cardio Rate: regular rate GI Inspection: Yes normal to inspection General: Yes no CVA tenderness Back/Spine/Pelvis Back: no CVA tenderness Neuro General: patient oriented x3 Extrem General: Yes normal to inspection Psych Mental Status: mental status grossly normal Speech and movement: Normal speech and movement present and Clear speech present Affect: Other affect and mood findings present (flat affect ) Attitude: cooperative Insight: Fair insight present (Psych) Judgement: Fair judgement present (Psych) Office Procedures Post Void Residual Post Residual Void Post Void Residual (PVR): 0 [id number] Void Residual by ultrasound Results AMB Urinalysis, Automated UA Leukoctes 70 Rosalino/uL Last Edit by [facility] on 11/01/23 14:04 UA Nitrite Negative Last Edit by [facility] on 11/01/23 14:04 UA Urobilinogen 0.2 mg/dL Last Edit by [facility] on 11/01/23 14:04 UA Protein 30 mg/dL Last Edit by [facility] on 11/01/23 14:04 UA pH 6.0 Last Edit by [facility] on 11/01/23 14:04 UA Blood 0 Guillermo/uL Last Edit by [facility] on 11/01/23 14:04 UA Specific [place] 1.020 Last Edit by [facility] on 11/01/23 14:04 UA Ketone Negative Last Edit by [facility] on 11/01/23 14:04 UA Bilirubin 0 mg/dL Last Edit by [place] [employer] on 11/01/23 14:04 UA Glucose 0 mg/dL Last Edit by [employer] on 11/01/23 14:04 Results Reviewed Results Reviewed: Laboratory Last Values Urine pH (Auto) 6.0 12/26/23 13:43 Specific [place] (Auto) 1.020 11/01/23 13:43 Urine Protein (Auto) 30 mg/dL 11/01/23 13:43 Glucose (UA)(Auto) 0 mg/dL 11/01/23 13:43 Urine Ketones (Auto) Negative 11/01/23 13:43 Urine Blood (Auto) 0 Guillermo/uL 11/01/23 13:43 Urine Nitrite (Auto) Negative 11/01/23 13:43 Urine Bilirubin (Auto) 0 mg/dL 11/01/23 13:43 Urine Urobilinogen (Auto) 0.2 mg/dL 11/01/23 13:43 Leukocyte Esterase (Auto) 70 Rosalino/uL 11/01/23 13:43 Assessment & Plan Assessment & Plan (1) Urinary frequency: Code(s): R35.0 - Frequency of micturition (2) Incontinence: Code(s): R32 - Unspecified urinary incontinence Plan In office urinalysis results reviewed with patient today; as noted above; will send for microgen and treat according per results PVR 0 mL. Patient currently denies any bothersome urinary issues or concerns. Continue Myrbetriq 25 mg daily; as discussed and prescribed. Discussed UTI prevention with D mannose supplement, vitamin-C, increasing fluid intake, behavioral therapy with timed voiding, perineal hygiene and postcoital voiding, and management of constipation with stool softeners and increased fiber intake. Discussed bladder triggers/irritants Follow-up in 3 months with PVR; or sooner with any issues, concerns, and or questions Orders: Orders AMB Post Void Residual by ultrasound Today R35.0 - Frequency of micturition AMB Urinalysis Automated Today Z13.9 - Encounter for screening, unspecified Patient Instructions: The patient had an opportunity to ask questions regarding the treatment plan. All questions were answered. Physical exam, labs, and imaging were discussed and reviewed in detail. As well as risks, benefits, and discussion of treatment choices. No major barriers to understanding were identified. The patient expressed understanding and agreement with the above treatment plan. The patient was made aware they should contact our office by phone for worsening of their current condition, the appearance of new symptoms, or with any questions or concerns. Compliance is encouraged with any medications and follow up testing that is ordered. It is a privilege to be allowed the opportunity to participate in? your urological care.? Again, if you have any questions or concerns If you have any questions or concerns please do not hesitate to contact me. The office is [phone]. This note is constructed using voice recognition software. While every effort has been made to ensure accuracy teacher home therapy errors may have been included. Yours sincerely, SRI Mckay Coding Level of Care Code Est Pt Level 3 (63178) Diagnoses Urinary frequency R35.0 Incontinence R32 CPT Codes Post Residual Void - PVR CPT Code: 43770-Ecxy Void Residual by ultrasound ([id number])
== END 2023-11-01 14:10 | disposition home or self-care (01) ==
PROVIDERS: PCP Student in an Organized Health Care Education/Training Program; Visit Provider Nurse Practitioner Family
DX: R35.0 Frequency of micturition (principal); R32 Unspecified urinary incontinence; Z13.9 Encounter for screening, unspecified
CPT/HCPCS: 99213

== ENCOUNTER → 2023-11-01 13:30 | Outpatient (BNVA) | payer MEDICARE, MEDICAID, SELFPAY | PROVIDERS: PCP Student in an Organized Health Care Education/Training Program; Visit Provider Nurse Practitioner Family | DX: R35.0 Frequency of micturition (principal); R32 Unspecified urinary incontinence | CPT/HCPCS: 51798; 81003; 99212 ==

== ENCOUNTER 2023-11-02 09:46 | Outpatient (REF) | payer MEDICARE, MEDICAID, SELFPAY ==
[2023-11-02 14:22] LABS: MANUAL DIFF FLAG NO
[2023-11-02 14:25] LABS: Basophils Absolute Auto 0.1 X10*3/uL (0.0-0.2); Basophils Percent Auto 0.7 % (0-2); Eosinophils Absolute Auto 0.5 X10*3/uL (0.0-0.4); Hematocrit 34.4 % (37.0-47.0); Hemoglobin 9.2 g/dl (12.0-16.0); Imm Gran Abs Auto 0.05 X10*3/uL (0.00-0.03); Imm Gran Pct Auto 0.4 % (0.0-0.4); Lymphocytes Absolute Auto 4.7 X10*3/uL (1.2-4.9); Mean Corpuscular HGB Conc 26.7 g/dl (31.0-35.0); Mean Corpuscular Hemoglobin 20.3 pg (27.0-33.0); Mean Corpuscular Volume 75.8 fL (80.0-98.0); Mean Platelet Volume 10.1 fL (9.4-12.3); Monocytes Absolute Auto 0.7 X10*3/uL (0.1-1.2); Monocytes Percent Auto 5.9 % (2-11); Neutrophils Absolute Auto 5.5 x10*3/uL (2.0-8.3); Platelet Count 722 X10*3/uL (160-400); Red Blood Count 4.54 X10*6/uL (4.20-5.50); Red Cell Distribution Width 21.1 % (11.0-16.0); White Blood Count 11.4 X10*3/uL (4.8-10.8)
[2023-11-02 14:46] LABS: Lithium 0.59 mmol/L (0.60-1.20)
[2023-11-02 14:59] LABS: Alanine Aminotransferase 14 U/L (0-31); Albumin Level 4.1 g/dL (3.5-5.0); Alkaline Phosphatase 77 U/L (39-117); Aspartate Amino Transferase 20 U/L (5-31); Bilirubin Direct < 0.2 mg/dL (0.0-0.5); Bilirubin Total 0.2 mg/dL (0.0-1.0); Total Protein 7.1 g/dL (6.5-8.0)
== END 2023-11-02 09:47 | disposition home or self-care (01) ==
LOC: HO.CHCLDS 09:46
PROVIDERS: Visit Provider Internal Medicine
DX: D72.828 Other elevated white blood cell count (principal); F31.76 Bipolar disorder, in full remission, most recent episode depressed
CPT/HCPCS: 36415; 80076; 80178; 85025

== ENCOUNTER 2023-11-04 10:21 | Outpatient (REF) | payer MEDICARE, MEDICAID, SELFPAY ==
[2023-11-04 11:28] LABS: Immature Retic Fraction 22.3 % (3.0-15.9); Retic HGB Equivalent 20.8 pg (30.0-35.0); Reticulocyte Percent 1.9 % (0.5-1.8); Reticulocytes Absolute 0.091 X10*6/uL (0.026-0.095)
[2023-11-04 12:17] LABS: Iron 16 mcg/dL (30-160); Percent Iron Saturation 5 % (15-50); Total Iron Binding Capacity 343 mcg/dL (228-428); Unsaturated Iron Binding 327 ug/dL
[2023-11-04 12:39] LABS: Folate 6.8 ng/mL (> or = 4.0); Vitamin B12 366 pg/mL (200-900)
== END 2023-11-04 10:22 | disposition home or self-care (01) ==
LOC: HO.LAB 10:21
PROVIDERS: PCP Student in an Organized Health Care Education/Training Program; Visit Provider Internal Medicine
DX: R53.83 Other fatigue (principal); R42 Dizziness and giddiness; D50.9 Iron deficiency anemia, unspecified
CPT/HCPCS: 36415; 82607; 82746; 83540; 85045

== ENCOUNTER 2023-11-21 09:40 | Outpatient (AMB) | payer MEDICARE, MEDICAID, SELFPAY ==
[2023-11-21 09:42] VITALS: BP 100/72; PULSE 88; O2SAT 100; BMI 31.0
--- NOTE | 2023-11-21 09:42 | MHC.OFFVIS ---
Intake Vital Signs 11/21/23 09:42 Height 5 ft 3 in Weight 175 lb 4.28 oz BMI 31.0 BP 100/72 Blood Pressure Location Lt brachial Position Sitting Pulse 88 Pulse Source Doppler Pulse Oximetry (%) 100 Oxygen Delivery Method Room Air Intake Visit Reasons: COPD Intake Note: Patient is here for routine follow up, no new symptoms Allergies No Known Allergies Allergy (Verified 11/21/23 09:53) Medication List - Last Reconciled 11/21/23 by Ana Ricks MD albuterol sulfate 90 mcg/actuation 1 inh inhalation QID PRN albuterol sulfate 0.63 mg (3 mL) inhalation QID PRN budesonide 180 mcg/actuation (Pulmicort Flexhaler) 1 inh inhalation BID cariprazine (Vraylar) 6 mg PO DAILY 30 days cholecalciferol (vitamin D3) 25 mcg PO DAILY clindamycin HCl 300 mg PO TID 10 days clonazepam 1 mg PO BID dextroamphetamine-amphetamine 30 mg ER 1 cap PO DAILY docusate sodium 200 mg (2 x 100 mg) PO BEDTIME escitalopram oxalate 10 mg PO DAILY esomeprazole magnesium (Nexium) 40 mg PO DAILY 30 days fluconazole 150 mg PO Q3D 2 doses fluticasone propionate 50 mcg/actuation (Flonase Allergy Relief) 1 spray intranasal Q12H gabapentin 300 mg PO BID levofloxacin 750 mg PO DAILY 10 days lithium carbonate 600 mg (2 x 300 mg) PO BEDTIME mirabegron ER (Myrbetriq) 50 mg (2 x 25 mg) PO DAILY 90 days mirtazapine 7.5 mg PO BEDTIME nebulizers (AeroEclipse II Nebulizer) As directed sertraline 200 mg (2 x 100 mg) PO DAILY 30 days simvastatin 20 mg PO BEDTIME sumatriptan succinate 50 mg PO DAILY MRX1 trazodone 50 mg PO BEDTIME PRN 30 days Do you need a note to return to daycare/school/sports/work: No HPI COPD HPI Details Tammy is 38 years old female, coming for follow-up after 4 months, She is being followed for bronchial asthma. She quit smoking ,before her last visit and luckily has not gone back to smoking. She describes that she does have frequent urge to grab a cigarette but she is able to resist. Since she has stop smoking her breathing has remained controlled much better . He has only occasional cough or wheeze. Nasal symptoms are also under good control. Emotionally controlled and stable. [facility] Medical History Pre-op evaluation Seasonal allergies Urinary frequency Incontinence HLD (hyperlipidemia) Clonidine overdose Polysubstance overdose Asthma Bronchitis Smoker Posttraumatic stress disorder Borderline personality disorder Bipolar disorder, unspecified B12 deficiency Anemia Migraines Cervical cancer COPD (chronic obstructive pulmonary disease) Depression Anxiety Surgical History History of esophagogastroduodenoscopy (EGD) History of bilateral tubal ligation History of total splenectomy Family History Father No problems noted. Mother No problems noted. Social History Household Members: Family Housing: Apartment Do you presently have visiting nurse or other home services: No Alcohol intake: never Comment: 1:1 sitter Patient Tobacco Use Status: Former Tobacco user Quit Date: 02/2023 Cigarette Packs Per Day: 1.5 Cigarettes Per Day: 30.0 Years Smoked: 15 Second Hand Smoke Exposure: Yes Substance Use Type: Marijuana service: No Current occupational status: disabled 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 Sexual orientation: Straight/Heterosexual Review of Systems Const All systems reviewed & are unremarkable except as noted in HPI and below Reports headache(s) (MIGRAINS ) ENT Reports headache(s) (MIGRAINS ) and Reports nasal congestion (MILD , INTERMITTENT .) Resp Reports cough (FREQUENT , DRY . ) Neuro Reports headache(s) (MIGRAINS ) Psych Reports anxiety and Reports depression Physical Exam Vital Signs: Last Vital Signs Pulse 88 11/21/23 09:42 BP 100/72 11/21/23 09:42 Pulse Ox 100 11/21/23 09:42 Oxygen Delivery Method Room Air 11/21/23 09:42 BMI result Body Mass Index 31.0 Const General: healthy appearing (OVERWEIGHT ,), comfortable, no acute distress, alert and awake Orientation/consciousness: patient oriented x3 HEENT Head: Yes normal to inspection General nose exam: No nasal polyps present and No nasal discharge present Face and sinus: Yes sinuses nontender Mouth: oropharynx abnormals (MILD ERYTHEMA OF THE PHARYNGEAL MUCOSA, NO EXUDATES ) Throat: Yes posterior oropharynx normal Eyes General: appearance normal, both eyes and all related structures Neck Neck: Yes normal visual inspection, Yes no lymphadenopathy, Yes trachea midline and Yes no JVD Thyroid: Thyroid normal Chest Chest palpation & inspection: normal inspection of the chest, normal palpation of entire chest wall and no tenderness Resp Effort & Inspection: normal respiratory effort and able to speak in complete sentences Auscultation: clear to auscultation bilaterally, no crackles and no wheezes Cardio Palpation: normal PMI Rate: regular rate Rhythm: regular rhythm Heart sounds: no gallops and no murmurs Peripheral pulses: Peripheral pulses 2+ throughout GI Palpation (GI): Soft to palpation, nontender, No hepatosplenomegaly present and no masses Auscultation: normal bowel sounds Back/Spine/Pelvis Thoracic/Lumbar Spine: thoracic and lumbar spine normal to inspection Skin General skin exam: no rashes or lesions noted Neuro General: patient oriented x3 and no focal motor deficits Cranial nerves: Yes CN's II-XII intact bilaterally Extrem General: Yes normal to inspection, Yes no clubbing, cyanosis or edema, Yes no calf tenderness and No venous stasis dermatitis Psych Appearance: grossly normal and well kempt Speech and movement: Normal speech and movement present Assessment & Plan Assessment & Plan (1) Asthma: Comment: SHE HAS HISTORY OF CHRONIC BRONCHIAL ASTHMA. PULMONARY FUNCTION TEST ON 07/18/2023 SHOWS MILD OBSTRUCTIVE AIRWAY DISORDER WHICH IS COMPLETELY REVERSED AFTER BRONCHODILATOR THERAPY. THE RESULTS ARE CONSISTENT WITH BRONCHIAL ASTHMA. Code(s): J45.909 - Unspecified asthma, uncomplicated Plan: TX: CONTINUE TO USE PULMICORT TWIST HALER 180 MCG PER ACTUATION 1 INHALATION B.I.D. USE VENTOLIN 2 PUFFS Q 4-6 HOURS P.R.N., ALTERNATELY MAY USE ALBUTEROL SOLUTION 0.63 MG IN 3 ML Q 4-6 HOURS P.R.N.. (2) Smoker: Comment: PATIENT HAS BEEN A HEAVY SMOKER, UP TO 2 PACKS A DAY. LUCKILY SHE QUIT SMOKING IN FEBRUARY 2023 AND SO FOR IS RESISTING GOING BACK TO SMOKING. SHE IS COMMENDED FOR QUITTING AND ENCOURAGED TO STAY FREE OF SMOKING . Code(s): F17.200 - Nicotine dependence, unspecified, uncomplicated Plan: COMMENDED FOR NOT SMOKING Medications: Changed From budesonide 180 mcg/actuation (Pulmicort Flexhaler) 1 inh inhalation BID 1 ea 0RF To budesonide 180 mcg/actuation (Pulmicort Flexhaler) 1 inh inhalation BID 1 ea 5RF ASTHMA 30 days Refilled albuterol sulfate 90 mcg/actuation 1 inh inhalation QID PRN 8.5 grams 3RF shortness of breath or wheezing J20.9 - Acute bronchitis, unspecified, J45.901 - Unspecified asthma with (acute) exacerbation, J45.909 - Unspecified asthma, uncomplicated, R06.2 - Wheezing Coding Level of Care Code Est Pt Level 3 (14745) Diagnoses Asthma J45.909 Smoker F17.200
== END 2023-11-21 10:00 | disposition home or self-care (01) ==
PROVIDERS: PCP Student in an Organized Health Care Education/Training Program; Visit Provider Internal Medicine
DX: J45.909 Unspecified asthma, uncomplicated (principal); F17.200 Nicotine dependence, unspecified, uncomplicated
CPT/HCPCS: 99213

== ENCOUNTER → 2023-11-21 09:40 | Outpatient (BNVA) | payer MEDICARE, MEDICAID, SELFPAY | PROVIDERS: PCP Student in an Organized Health Care Education/Training Program; Visit Provider Internal Medicine | DX: J45.909 Unspecified asthma, uncomplicated (principal); F17.210 Nicotine dependence, cigarettes, uncomplicated | CPT/HCPCS: 99212 ==

== ENCOUNTER 2023-12-01 14:36 | Inpatient (IN) | payer MEDICARE, MEDICAID, SELFPAY ==
[2023-12-01 14:42] VITALS: BP 134/80; PULSE 88; O2SAT 99
[2023-12-01 14:43] VITALS: BP 114/55; PULSE 68; RESP 17; TEMP 36.2; O2SAT 97; BMI 31.0
--- NOTE | 2023-12-01 14:51 | ED.GENADULT ---
HPI - General Adult General Chief complaint: Psychiatric Symptoms Stated complaint: si no plan seen by crisis calm/coop per ems Time Seen by Provider: 12/01/23 14:50 Source: patient and EMS Mode of arrival: EMS Limitations: no limitations History of Present Illness HPI narrative: This is a 38 year old f hx of hiatal hernia, bipolar 2, borderline personality disorder, depression, suicide attempt by multiple drug overdose, hypotension, HLD, smoker, acid reflux presenting to the emergency department with complaints of suicidal ideation w/o a plan. Patient denies visual, auditory and tactile hallucinations. Denies drugs, alcohol tobacco. Reports med compliance. Denies any medical complaints at this time. Related Data Home Medications Medication Instructions Recorded Confirmed escitalopram oxalate 10 mg tablet 10 mg PO DAILY 11/03/22 11/21/23 dextroamphetamine-amphetamine ER 1 cap PO DAILY 02/07/23 11/21/23 30 mg 24hr capsule,extend release simvastatin 20 mg tablet 20 mg PO BEDTIME 02/07/23 11/21/23 Previous Rx's Medication Instructions Recorded cariprazine 6 mg capsule (Vraylar) 6 mg PO DAILY 30 days #30 caps 03/04/21 cholecalciferol (vitamin D3) 25 25 mcg PO DAILY #30 tabs 03/04/21 mcg (1,000 unit) tablet clonazepam 1 mg tablet 1 mg PO BID #60 tabs 03/04/21 docusate sodium 100 mg capsule 200 mg (2 x 100 mg) PO BEDTIME #60 03/04/21 caps fluticasone propionate 50 1 spray intranasal Q12H #16 grams 03/04/21 mcg/actuation nasal spray,suspension (Flonase Allergy Relief) gabapentin 300 mg capsule 300 mg PO BID #60 caps 03/04/21 lithium carbonate 300 mg capsule 600 mg (2 x 300 mg) PO BEDTIME #60 03/04/21 caps mirtazapine 7.5 mg tablet 7.5 mg PO BEDTIME #30 tabs 03/04/21 sertraline 100 mg tablet 200 mg (2 x 100 mg) PO DAILY 30 03/04/21 days #60 tabs sumatriptan succinate 50 mg tablet 50 mg PO DAILY MRX1 #60 tabs 03/04/21 trazodone 50 mg tablet 50 mg PO BEDTIME PRN Insomnia 30 03/04/21 days #30 tabs albuterol sulfate 0.63 mg/3 mL 0.63 mg (3 mL) inhalation QID PRN 10/06/21 solution for nebulization shortness of breath or wheezing #75 mL nebulizers (AeroEclipse II #1 ea 10/06/21 Nebulizer) esomeprazole magnesium 40 mg 40 mg PO DAILY 30 days #30 caps 05/25/23 capsule,delayed release (Nexium) mirabegron 25 mg tablet,extended 50 mg (2 x 25 mg) PO DAILY 90 days 07/15/23 release 24 hr (Myrbetriq) #180 tabs clindamycin HCl 300 mg capsule 300 mg PO TID 10 days #30 caps 11/08/23 fluconazole 150 mg tablet 150 mg PO Q3D 2 doses #2 tabs 11/08/23 levofloxacin 750 mg tablet 750 mg PO DAILY 10 days #10 tabs 11/08/23 albuterol sulfate 90 mcg/actuation 1 inh inhalation QID PRN shortness 11/21/23 aerosol inhaler of breath or wheezing #8.5 grams budesonide 180 mcg/actuation 1 inh inhalation BID ASTHMA 30 11/21/23 breath activated powder inhaler days #1 ea (Pulmicort Flexhaler) Allergies Allergy/AdvReac Type Severity Reaction Status Date / Time No Known Allergies Allergy Verified 11/21/23 09:53 Review of Systems Review of Systems: Constitutional : No Weight loss, No Fever, No Chills, No Fatigue, No Malaise ENT/Mouth : No sore throat, No Rhinorrhea Eyes: No Eye Pain, No Swelling, No Redness Cardiovascular : No Chest Pain, No SOB, No Dyspnea on Exertion, No Orthopnea, No Edema, No Palpitations Respiratory : No Cough, No Sputum, No Wheezing Gastrointestinal : No Nausea, No Vomiting, No Diarrhea, No Constipation, No abdominal Pain, No Hematochezia, No Melena Genitourinary : No Dysuria, No Urinary Frequency, No Hematuria, Musculoskeletal : No joint pain, No Myalgias, No Joint Swelling Skin : No Skin Lesions, No rash Neuro : No Weakness, No Numbness, No Dizziness, No Headache Psych : + Anxiety/Panic, + SI, No Depression All other systems reviewed and are negative Yes all other systems are reviewed and are negative PMFSH Past Medical History Attestation statement: The following information was validated with the patient. Source: old records reviewed and nursing notes reviewed Medical History Pre-op evaluation Seasonal allergies Urinary frequency Incontinence HLD (hyperlipidemia) Clonidine overdose Polysubstance overdose Asthma Bronchitis Smoker Posttraumatic stress disorder Borderline personality disorder Bipolar disorder, unspecified B12 deficiency Anemia Migraines Cervical cancer COPD (chronic obstructive pulmonary disease) Depression Anxiety Surgical History History of esophagogastroduodenoscopy (EGD) History of bilateral tubal ligation History of total splenectomy Family History Family History Father No problems noted. Mother No problems noted. Social History Social History Household Members: Family Housing: Apartment Do you presently have visiting nurse or other home services: No Alcohol intake: never Comment: 1:1 sitter Patient Tobacco Use Status: Former Tobacco user Quit Date: 02/2023 Cigarette Packs Per Day: 1.5 Cigarettes Per Day: 30.0 Years Smoked: 15 Second Hand Smoke Exposure: Yes Substance Use Type: Marijuana service: No Current occupational status: disabled 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 Sexual orientation: Straight/Heterosexual Physical Exam ED Vital Signs: Vital Signs - 24 hr 12/01/23 14:43 Temperature 97.1 F Pulse Rate 68 Respiratory Rate 17 Blood Pressure 114/55 L Pulse Oximetry 97 Oxygen Delivery Method Room Air BMI result Body Mass Index 31.0 vss Appearance: Alert.? Oriented X3.? No acute distress.? Head: Normocephalic, atraumatic, no step-offs or deformities Eyes: Pupils equal, round and reactive to light.? CVS: Normal heart rate and rhythm.? Pulses normal.? Respiratory: No respiratory distress.? Breath sounds normal.? Abdomen: Soft and nontender.? Skin: Skin warm and dry.? Normal skin color.? Normal skin turgor.? Extremities: No lower extremity edema.? No calf ttp. 5/5 strength to bilateral upper and lower extremities Neuro: Oriented X 3.? No motor deficit.? No sensory deficit. CN 2-12 intact Course Reevaluation(s) Reevaluation #1: CBC w/ leukocytosis appears to be chronic in nature, as well as a microcytic anemia again chronic unchanged. Patient is also noted to have thrombocytosis again this is patient's baseline. UA unremarkable. UA without infection. Urine negative. At this time patient to be placed into observation to allow more time to be evaluated by behavioral health team. At time observation was started common cooperative no acute distress will continue to monitor Time: 15:31 Medical Decision Making Medical Decision Making [facility] Narrative: 1455 38 year old female presents w/ si w/o a plan. PE flat affect Likely bipolar vs borderline personality d/o vs depression vs anxiety. Unlikely metabolic derangements. Plan- medical clearance eval by care team. Differential Diagnosis Differential Diagnoses: The differential diagnosis associated with the presentation includes Likely bipolar vs borderline personality d/o vs depression vs anxiety. Unlikely metabolic derangements. Admission/Observation Consideration of admission/observation: Escalation of care including admission/observation considered likely Lab Data [facility] Lab Attestation statement: I reviewed the patient's lab results. 12/01/23 15:05 12/01/23 15:05 Labs: Lab Results 12/01/23 12/01/23 Range/Units 14:56 15:05 WBC 12.8 H (4.8-10.8) X10*3/uL RBC 4.60 (4.20-5.50) X10*6/uL Hgb 9.4 L (12.0-16.0) g/dl Hct 33.6 L (37.0-47.0) % MCV 73.0 L (80.0-98.0) fL MCH 20.4 L (27.0-33.0) pg MCHC 28.0 L (31.0-35.0) g/dl RDW 22.2 H (11.0-16.0) % Plt Count 718 H (160-400) X10*3/uL MPV 9.2 L (9.4-12.3) fL Immature Gran % (Auto) 0.3 (0.0-0.4) % Neut % (Auto) 44.9 L (45-73) % Lymph % (Auto) 43.7 H (20-40) % Elk % (Auto) 6.0 (2-11) % Eos % (Auto) 4.3 H (0-4) % Baso % (Auto) 0.8 (0-2) % Lymph # (Auto) 5.6 H (1.2-4.9) X10*3/uL Elk # (Auto) 0.8 (0.1-1.2) X10*3/uL Eos # (Auto) 0.6 H (0.0-0.4) X10*3/uL Baso # (Auto) 0.1 (0.0-0.2) X10*3/uL Abs Immat Gran (auto) 0.04 H (0.00-0.03) X10*3/uL Absolute Neuts (auto) 5.8 (2.0-8.3) x10*3/uL Absolute Nucleated RBC 0.000 (0.0-0.012) X10*3/uL Nucleated RBC % (auto) 0.0 (0.0-0.2) /100WBC Sodium 138 (135-145) mmol/L Potassium 4.6 (3.3-5.1) mmol/L Chloride 106 (96-108) mmol/L Carbon Dioxide 24 (22-29) mmol/L Anion Gap 13 (12-20) BUN 11 (9-16) mg/dL Creatinine 0.75 (0.5-1.4) mg/dL Estim Creat Clear Calc 100.4 Estimated GFR > 60 Random Glucose 131 H (60-115) mg/dL Calcium 9.7 (8.4-10.2) mg/dL Magnesium 2.2 (1.6-2.6) mg/dL Total Bilirubin 0.2 (0.0-1.0) mg/dL AST 15 (5-31) U/L ALT 18 (0-31) U/L Alkaline Phosphatase 74 (39-117) U/L Total Protein 7.0 (6.5-8.0) g/dL Albumin 4.1 (3.5-5.0) g/dL Urine Color Yellow Urine Appearance Clear Urine pH 6.5 (5.0-9.0) Ur Specific Birney 1.020 (1.005-1.025) Urine Protein Negative (Neg-Trace) mg/dL Urine Glucose (UA) Negative (Negative) mg/dL Urine Ketones Negative (Negative) mg/dL Urine Blood Negative (Negative) Urine Nitrite Negative (Negative) Ur Leukocyte Esterase Trace H (Negative) Urine RBC 0-2 (0-2) /HPF Urine WBC 0-5 (0-5) /HPF Ur Squamous Epith Cells 6-10 (0-2) /HPF Urine Bacteria Trace (None Seen) Hyaline Casts 0-2 (0-2) /LPF Urine Test NEGATIVE (NEGATIVE) Salicylates < 5.0 L (15-30) mg/dL Acetaminophen < 3 (<30) mcg/mL Ethyl Alcohol < 10 mg/dL External Record Review External record reviewed: Inpatient record, Office record, Outpatient record, Prior outpatient labs, Prior outpatient radiology, Primary care record and Outside ED record Critical Care Time Critical Care Time Critical Care Time: No Discharge Plan Discharge Clinical Impression: Bipolar 2 disorder, Borderline personality disorder, Suicidal ideation Patient Disposition: Still a Patient Prescriptions: No Action levofloxacin 750 mg tablet 750 mg PO DAILY 10 Days Qty: 10 0RF clindamycin HCl 300 mg capsule 300 mg PO TID 10 Days Qty: 30 0RF fluconazole 150 mg tablet 150 mg PO Q3D Qty: 2 0RF lithium carbonate 300 mg Capsule 600 mg PO BEDTIME Qty: 60 0RF mirtazapine 7.5 mg Tablet 7.5 mg PO BEDTIME Qty: 30 0RF docusate sodium 100 mg Capsule 200 mg PO BEDTIME Qty: 60 0RF cholecalciferol (vitamin D3) 25 mcg (1,000 unit) Tablet 25 mcg PO DAILY Qty: 30 0RF gabapentin 300 mg capsule 300 mg PO BID Qty: 60 0RF fluticasone propionate [Flonase Allergy Relief] 50 mcg/actuation spray,suspension 1 spray intranasal Q12H Qty: 16 0RF Rx Instructions: administer into each nostril trazodone 50 mg Tablet 50 mg PO BEDTIME PRN (Reason: Insomnia) 30 Days Qty: 30 0RF sertraline 100 mg Tablet 200 mg PO DAILY 30 Days Qty: 60 0RF clonazepam 1 mg tablet 1 mg PO BID Qty: 60 0RF sumatriptan succinate 50 mg tablet 50 mg PO DAILY MRX1 Qty: 60 0RF Vraylar 6 mg capsule 6 mg PO DAILY 30 Days Qty: 30 0RF (DME) nebulizers [AeroEclipse II Nebulizer] Misc See Rx Instructions .ROUTE .MEDSUPPLY Qty: 1 0RF Rx Instructions: As directed albuterol sulfate 0.63 mg/3 mL solution for nebulization 0.63 mg inhalation QID PRN (Reason: shortness of breath or wheezing) Qty: 75 0RF escitalopram oxalate 10 mg tablet 10 mg PO DAILY dextroamphetamine-amphetamine 30 mg capsule,extended release 24hr 1 cap PO DAILY simvastatin 20 mg tablet 20 mg PO BEDTIME esomeprazole magnesium [Nexium] 40 mg capsule,delayed release(DR/EC) 40 mg PO DAILY 30 Days Qty: 30 6RF Myrbetriq 25 mg tablet extended release 24 hr 50 mg PO DAILY 90 Days Qty: 180 1RF Pulmicort Flexhaler 180 mcg/actuation aerosol powdr breath activated 1 inh inhalation BID 30 Days Qty: 1 5RF albuterol sulfate 90 mcg/actuation HFA aerosol inhaler 1 inh inhalation QID PRN (Reason: shortness of breath or wheezing) Qty: 8.5 3RF
[2023-12-01 15:05] LABS: Appearance Urine Clear; Color Urine Yellow; Glucose Urine UA Negative (Negative); Leukocyte Esterase Urine Trace (Negative); Nitrite Urine Negative (Negative); PH 6.5 (5.0-9.0); UMIC TRIGGER UACC YES; Urine Blood Negative (Negative); Urine Ketones Negative (Negative); Urine Protein Negative (Neg-Trace)
[2023-12-01 15:06] LABS: UPreg QC Valid YES; Urine Pregnancy NEGATIVE (NEGATIVE)
[2023-12-01 15:11] LABS: Bacteria Urine Trace (None Seen); Hyaline Casts Urine 0-2 /LPF (0-2); RBC Urine 0-2 /HPF (0-2); WBC Urine 0-5 /HPF (0-5)
[2023-12-01 15:11] LABS: Basophils Absolute Auto 0.1 X10*3/uL (0.0-0.2); Basophils Percent Auto 0.8 % (0-2); Eosinophils Absolute Auto 0.6 X10*3/uL (0.0-0.4); Eosinophils Percent Auto 4.3 % (0-4); Hematocrit 33.6 % (37.0-47.0); Hemoglobin 9.4 g/dl (12.0-16.0); Imm Gran Abs Auto 0.04 X10*3/uL (0.00-0.03); Imm Gran Pct Auto 0.3 % (0.0-0.4); Lymphocytes Absolute Auto 5.6 X10*3/uL (1.2-4.9); Lymphocytes Percent Auto 43.7 % (20-40); MANUAL DIFF FLAG SCAN; Mean Corpuscular Hemoglobin 20.4 pg (27.0-33.0); Mean Platelet Volume 9.2 fL (9.4-12.3); Monocytes Absolute Auto 0.8 X10*3/uL (0.1-1.2); Neutrophils Absolute Auto 5.8 x10*3/uL (2.0-8.3); Neutrophils Percent Auto 44.9 % (45-73); Platelet Count 718 X10*3/uL (160-400); Red Cell Distribution Width 22.2 % (11.0-16.0); SCAN SMEAR FLAG 1; White Blood Count 12.8 X10*3/uL (4.8-10.8)
[2023-12-01 15:26] LABS: Acetaminophen LAB < 3 mcg/mL (<30); Alanine Aminotransferase 18 U/L (0-31); Albumin Level 4.1 g/dL (3.5-5.0); Alkaline Phosphatase 74 U/L (39-117); Anion Gap 13 (12-20); Aspartate Amino Transferase 15 U/L (5-31); Bilirubin Total 0.2 mg/dL (0.0-1.0); Blood Urea Nitrogen 11 mg/dL (9-16); Calcium 9.7 mg/dL (8.4-10.2); Carbon Dioxide 24 mmol/L (22-29); Chloride 106 mmol/L (96-108); Creatinine Clr Calc Pharmacy 100.4; Estimated Glomerular Filt Rate > 60; Ethanol < 10 mg/dL; Glucose Random 131 mg/dL (60-115); Magnesium 2.2 mg/dL (1.6-2.6); Potassium 4.6 mmol/L (3.3-5.1); Salicylate < 5.0 mg/dL (15-30); Sodium 138 mmol/L (135-145)
[2023-12-01 15:34] LABS: COVID-19 Test Negative (Negative); IDNOW Serial# 9DB6401D
[2023-12-01 15:36] LABS: SLIDE REVIEW VERIFIED
[2023-12-01 17:46] VITALS: RESP 18
--- NOTE | 2023-12-01 17:50 | PC.NURSE ---
Tammy was BIBA as a voluntary bed search after seeing [facility] in the community. She is reporting SI and her affect is flat. Tammy was able to exchange mechanic and labs are pending. Tammy reports she is unsure of her current medications and she states [facility] has the list. They have been contacted and that information was requested. Tammy is currenly in bed resting. She had a brief visit from her friend Ramses and has had no behavioral concerns.
[2023-12-01 17:57] LABS: Amphetamine Screen Urine POSITIVE (Not Detect); Barbiturates, Urine Not Detected (Not Detect); Benzodiazepines Screen Urine POSITIVE (Not Detect); Cannabinoid Screen Urine POSITIVE (Not Detect); Cocaine Screen Urine Not Detected (Not Detect); Fentanyl, urine Not Detected (Not Detect); Opiate Screen Urine Not Detected (Not Detect); Phencyclidine Screen Urine Not Detected (Not Detect)
[2023-12-02 06:55] VITALS: BP 98/59; PULSE 58; RESP 14; TEMP 36.6; O2SAT 97
--- NOTE | 2023-12-02 08:32 | ECG_ITS ---
Test Reason : check prolonged qt Blood Pressure : / mmHG Vent. Rate : 052 BPM Atrial Rate : 052 BPM P-R Int : 140 ms QRS Dur : 084 ms QT Int : 446 ms P-R-T Axes : 040 029 040 degrees QTc Int : 414 ms Sinus bradycardia Otherwise normal ECG When compared with ECG of 18-FEB-2021 07:17, No significant change was found Referred By: Nunu Reyes Electronically Signed By:Rob Sanchez
--- NOTE | 2023-12-02 08:45 | PC.NURSE ---
PT IS A/O X 4 NO SOB/FRANCISCA NOTED SPEAKS IN FULL SENTENCES. PT DENIES ANY PAIN/DISC. PT DENIES ANY SI/HI AT THIS TIME. PT AMB (I) GAIT STEADY. PT IS CALM/CO-OP. PT AWARE OF PLAN OF CARE. WILL CONTINUE TO MONITOR.
--- NOTE | 2023-12-02 10:25 | PHA.MEDREC ---
Pharmacy Consult ? Medication Reconciliation Pharmacy has REVIEWED the medication reconciliation done by the RN. Patient had a list. RN made several discrepancies. Discrepancies were resolved.
--- NOTE | 2023-12-02 11:34 | PC.NURSE ---
RN TO RN REPORT GIVEN TO ALI. PT AWARE OF PLAN OF CARE FOR TRANSFER TO [facility].
[2023-12-02 11:56] VITALS: BP 102/53; PULSE 54; RESP 15; TEMP 36.7; O2SAT 97
[2023-12-02] MEDS: lamoTRIgine 100 MG TABLET PO (11:58)
[2023-12-02] MEDS: cloNIDine HCL 0.1 MG TABLET PO ×3 (11:58→19:25)
[2023-12-02] MEDS: Gabapentin 300 MG CAPSULE PO ×2 (11:58→19:26)
[2023-12-02] MEDS: Cariprazine HCl 3 MG CAPSULE 6 MG PO (11:58)
[2023-12-02] MEDS: Dextroamphetamine/Amphetamine XR 10 MG CAP.ER.24H 30 MG PO (11:58)
[2023-12-02] MEDS: Lithium Carbonate 300 MG CAPSULE PO ×2 (11:58→19:26)
[2023-12-02] MEDS: clonazePAM 1 MG TABLET PO ×3 (11:58→19:26)
[2023-12-02] MEDS: Loratadine 10 MG TABLET PO (11:58)
[2023-12-02] MEDS: Omeprazole 20 MG CAPSULE.DR PO (12:02)
[2023-12-02] MEDS: Escitalopram Oxalate 5 MG TABLET 15 MG PO (12:38)
[2023-12-02 12:50] VITALS: BP 107/55; PULSE 58; RESP 16; TEMP 36.2; O2SAT 99
--- NOTE | 2023-12-02 16:20 | PC.NURSE ---
late entry: pt arrived on unit at 1245pm on a CV via wheelchair.. Skin check performed, vital taken and wnl, legals signed and pt allowed access to cell phone. Admission to be completed.
[2023-12-02 17:16] VITALS: BP 115/52; PULSE 55; RESP 17; TEMP 36.6; O2SAT 92
[2023-12-02] MEDS: Lithium Carbonate 300 MG TABLET 150 MG PO (19:25)
[2023-12-02] MEDS: hydrOXYzine HCL 25 MG TABLET PO (19:25)
[2023-12-02] MEDS: Mirtazapine 15 MG TABLET PO (19:26)
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
[2023-12-03 08:00] VITALS: BP 97/58; PULSE 62; TEMP 36.7
[2023-12-03 08:07] LABS: Cholesterol 237 mg/dL (<200); Estimated Average Glucose 103 mg/dL; HDL Cholesterol 38 mg/dL (>40); Hemoglobin A1c % 5.2 % (<6.0); LDL Cholesterol Calculated 159 mg/dL (<100); Magnesium 2.2 mg/dL (1.6-2.6); Triglycerides 204 mg/dL (<150)
[2023-12-03 08:23] LABS: Free T4 (Free Thyroxine) 0.81 ng/dL (0.71-1.85); Thyroid Stimulating Hormone 1.28 uIU/mL (0.32-4.0)
[2023-12-03] MEDS: Escitalopram Oxalate 5 MG TABLET 15 MG PO (08:23)
[2023-12-03] MEDS: clonazePAM 1 MG TABLET PO ×3 (08:23→19:58)
[2023-12-03] MEDS: Gabapentin 300 MG CAPSULE PO ×2 (08:23→19:58)
[2023-12-03] MEDS: Cariprazine HCl 3 MG CAPSULE 6 MG PO (08:23)
[2023-12-03] MEDS: Loratadine 10 MG TABLET PO (08:24)
[2023-12-03] MEDS: cloNIDine HCL 0.1 MG TABLET PO ×3 (08:24→19:57)
[2023-12-03] MEDS: Omeprazole 20 MG CAPSULE.DR PO (08:24)
[2023-12-03] MEDS: Lithium Carbonate 300 MG CAPSULE PO ×2 (08:24→19:58)
[2023-12-03] MEDS: Mirabegron 50 MG TAB.ER.24H PO (08:24)
[2023-12-03] MEDS: lamoTRIgine 100 MG TABLET PO (08:24)
[2023-12-03 08:37] LABS: Folate 6.4 ng/mL (> or = 4.0); Vitamin B12 304 pg/mL (200-900)
[2023-12-03] MEDS: Dextroamphetamine/Amphetamine XR 10 MG CAP.ER.24H 30 MG PO (08:39)
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
[2023-12-03 18:00] VITALS: BP 105/55; PULSE 60; RESP 16; O2SAT 97
[2023-12-03] MEDS: Lithium Carbonate 300 MG TABLET 150 MG PO (19:57)
[2023-12-03] MEDS: Mirtazapine 15 MG TABLET PO (19:58)
[2023-12-03] MEDS: Budesonide 180 MCG AER.POW.BA 1 PUFF INHALE (19:58)
[2023-12-03] MEDS: traZODone HCL 50 MG TABLET PO (20:04)
[2023-12-04 06:00] VITALS: BP 102/58; PULSE 58; RESP 18; TEMP 36.3
[2023-12-04] MEDS: Escitalopram Oxalate 5 MG TABLET 15 MG PO (08:22)
[2023-12-04] MEDS: lamoTRIgine 100 MG TABLET PO (08:22)
[2023-12-04] MEDS: Dextroamphetamine/Amphetamine XR 10 MG CAP.ER.24H 30 MG PO (08:22)
[2023-12-04] MEDS: clonazePAM 1 MG TABLET PO ×3 (08:22→20:10)
[2023-12-04] MEDS: Gabapentin 300 MG CAPSULE PO ×2 (08:22→20:10)
[2023-12-04] MEDS: Cariprazine HCl 3 MG CAPSULE 6 MG PO (08:22)
[2023-12-04] MEDS: Lithium Carbonate 300 MG CAPSULE PO ×2 (08:22→20:09)
[2023-12-04] MEDS: Mirabegron 50 MG TAB.ER.24H PO (08:22)
[2023-12-04] MEDS: Loratadine 10 MG TABLET PO (08:22)
[2023-12-04] MEDS: Omeprazole 20 MG CAPSULE.DR PO (08:23)
[2023-12-04] MEDS: cloNIDine HCL 0.1 MG TABLET PO ×3 (09:04→20:09)
--- NOTE | 2023-12-04 10:27 | HO.PSYCHPN ---
Subjective Subjective Date of Service: 12/04/23 Reason For Visit: Bipolar type 2, borderline personality Interim History: pt quietly working on art project in room; appears depressed; denies self harm ideas or SI since admission; she wonders if she really needs all the meds that she is on but is not sure whcih do anything positive; will get lithium level in am and she can discuss meds more with team tomorrow. she reports sleeping ok; eating only small amounts of food. Medication Compliance: Yes Side effects from medications: No Attending Groups: Intermittent Review of Systems Acute medical concerns: No Medical Review of Systems: unchanged Review of Systems Review of Systems Constitutional : No Weight loss, No Fever, No Chills, No Fatigue, No Malaise ENT/Mouth : No sore throat, No Rhinorrhea Eyes: No Eye Pain, No Swelling, No Redness Cardiovascular : No Chest Pain, No SOB, No Dyspnea on Exertion, No Orthopnea, No Edema, No Palpitations Respiratory : No Cough, No Sputum, No Wheezing Gastrointestinal : No Nausea, No Vomiting, No Diarrhea, No Constipation, No abdominal Pain, No Hematochezia, No Melena Genitourinary : No Dysuria, No Urinary Frequency, No Hematuria, Musculoskeletal : No joint pain, No Myalgias, No Joint Swelling Skin : No Skin Lesions, No rash Neuro : No Weakness, No Numbness, No Dizziness, No Headache Psych : + Anxiety/Panic, + SI, No Depression All other systems reviewed and are negative Yes all other systems are reviewed and are negative Mental Status Exam Mental Status Exam Patient Appearance: Appropriate Patient Orientation: Person, Place, Time and Situation Level of Consciousness: Awake Patient Behavior: Appropriate Mood Description: Depressed Affect Description: Appropriate and Depressed Patient Cognition Impaired: No Ability to Follow Directions: Good Speech Pattern: Clear Thought Content: positive for Goal Oriented Judgement: Fair Diagnostics Vital Signs (24Hr): Vital Signs - 24 hr 12/03/23 18:00 12/04/23 06:00 Temperature 97.4 F Pulse Rate 60 58 Respiratory Rate 16 18 Blood Pressure 105/55 L 102/58 L Pulse Oximetry 97 Oxygen Delivery Method Room Air Room Air BMI result Body Mass Index 31.0 Labs 12/01/23 15:05 12/01/23 15:05 Labs: Laboratory Results - last 48 hr 12/03/23 07:19 Estimat Average Glucose 103 Hemoglobin A1c % 5.2 Magnesium 2.2 Triglycerides 204 H Cholesterol 237 H LDL Cholesterol, Calc 159 H HDL Cholesterol 38 L Vitamin B12 304 Folate 6.4 TSH 1.28 Free T4 0.81 Medications Medications Current Medications Acetaminophen (Acetaminophen 325 Mg Tablet) 650 mg PO Q6H PRN PRN Reason: Headache/Pain Mild Scale (1-3) Al Hydroxide/Mg Hydroxide (Magnesium Hydrox/Alum Hydrox 30 Ml Oral.Susp) 30 ml PO Q6H PRN PRN Reason: Heartburn/Nausea Albuterol Sulfate (Albuterol Sulfate (0.042%) 1.25 Mg/3 Ml Vial.Neb) 0.63 mg INHALE QID PRN PRN Reason: shortness of breath or wheezing Albuterol Sulfate (Albuterol Sulfate 90 Mcg 8 Gm Inhaler) 1 puff INHALE RQID PRN PRN Reason: shortness of breath or wheezing Amphetamine/Dextroamphetamine (Dextroamphetamine/Amphetamine Xr 10 Mg Cap.Er.24h) 30 mg PO DAILY [facility] Last Admin: 12/04/23 08:22 Dose: 30 mg Atorvastatin Calcium (Atorvastatin Calcium 10 Mg Tablet) 10 mg PO BEDTIME [facility] Last Admin: 12/03/23 19:58 Dose: Not Given Budesonide (Budesonide 180 Mcg Aer.Pow.Ba) 1 puff INHALE BID [facility] Last Admin: 12/04/23 08:38 Dose: Not Given Calcium Carbonate/Cholecalciferol (Calcium + Vitamin D 250 Mg Tablet) 250 mg PO DAILY [facility] Last Admin: 12/04/23 08:38 Dose: Not Given Cariprazine (Cariprazine Hcl 3 Mg Capsule) 6 mg PO DAILY [facility] Last Admin: 12/04/23 08:22 Dose: 6 mg Clonazepam (Clonazepam 1 Mg Tablet) 1 mg PO TID [facility] Last Admin: 12/04/23 08:22 Dose: 1 mg Clonidine HCl (Clonidine Hcl 0.1 Mg Tablet) 0.1 mg PO TID [facility]; Protocol Last Admin: 12/04/23 09:04 Dose: 0.1 mg Docusate Sodium (Docusate Sodium 100 Mg Capsule) 200 mg PO BEDTIME PRN PRN Reason: Constipation Escitalopram Oxalate (Escitalopram Oxalate 5 Mg Tablet) 15 mg PO DAILY [facility] Last Admin: 12/04/23 08:22 Dose: 15 mg Ferrous Sulfate (Ferrous Sulfate 324 Mg Tablet.) 324 mg PO DAILY [facility] Last Admin: 12/04/23 08:38 Dose: Not Given Fluticasone Propionate (Fluticasone Propionate Nasal 16 Gm [place]) 1 spray NOSTRIL-B Q12H [facility] Last Admin: 12/03/23 22:06 Dose: Not Given Folic Acid (Folic Acid 1 Mg Tablet) 1 mg PO DAILY [facility] Last Admin: 12/04/23 08:38 Dose: Not Given Gabapentin (Gabapentin 300 Mg Capsule) 300 mg PO BID [facility] Last Admin: 12/04/23 08:22 Dose: 300 mg Hydroxyzine HCl (Hydroxyzine Hcl 25 Mg Tablet) 25 mg PO Q6H PRN PRN Reason: Anxiety Last Admin: 12/02/23 19:25 Dose: 25 mg Lamotrigine (Lamotrigine 100 Mg Tablet) 100 mg PO DAILY [facility] Last Admin: 12/04/23 08:22 Dose: 100 mg [place] Carbonate ([place] Carbonate 300 Mg Tablet) 150 mg PO BEDTIME [facility] Last Admin: 12/03/23 19:57 Dose: 150 mg [place] Carbonate ([place] Carbonate 300 Mg Capsule) 300 mg PO BID [facility] Last Admin: 12/04/23 08:22 Dose: 300 mg Loratadine (Loratadine 10 Mg Tablet) 10 mg PO DAILY [facility] Last Admin: 12/04/23 08:22 Dose: 10 mg Magnesium Hydroxide (Milk Of Magnesia 30 Ml Oral.Susp) 30 ml PO DAILY PRN PRN Reason: Constipation Mirabegron (Mirabegron 50 Mg Tab.Er.24h) 50 mg PO DAILY [facility] Last Admin: 12/04/23 08:22 Dose: 50 mg Mirtazapine (Mirtazapine 15 Mg Tablet) 15 mg PO BEDTIME [facility] Last Admin: 12/03/23 19:58 Dose: 15 mg Non-Formulary Medication (Celebrex) 50 mg PO DAILY [facility] Omeprazole (Omeprazole 20 Mg Capsule.Dr) 20 mg PO DAILY [facility] Last Admin: 12/04/23 08:23 Dose: 20 mg Sumatriptan Succinate (Sumatriptan Succinate 50 Mg Tablet) 50 mg PO DAILY MRX1 PRN PRN Reason: Migraine Headache Trazodone HCl (Trazodone Hcl 50 Mg Tablet) 50 mg PO BEDTIME MRX1 PRN PRN Reason: Insomnia Last Admin: 12/03/23 20:04 Dose: 50 mg Vitamin D (Cholecalciferol (Vitamin D3) 25 Mcg Tablet) 25 mcg PO DAILY [facility] Last Admin: 12/04/23 08:38 Dose: Not Given Allergies Allergies Allergy/AdvReac Type Severity Reaction Status Date / Time No Known Allergies Allergy Verified 11/21/23 09:53 Assessment & Plan Assessment & Plan (1) Suicidal ideation: Status: Acute Code(s): R45.851 - Suicidal ideations (2) Borderline personality disorder: Status: Acute Code(s): F60.3 - Borderline personality disorder (3) Depression: Status: Acute Code(s): F32.9 - Major depressive disorder, single episode, unspecified Plan The patient is a 38 year old female, , mother of 4 minor children, currently living with her family, unemployed on disability Hx of bipolar disorder, PTSD. Her psychiatric provider is Chang Ball and she has [facility] that prepackages her medications and visits her twice daily and case managing services. The patient has an extensive history of Bipolar disorder, Borderline Personality disorder, past history of trauma and several admissions into the hospital for mood symptoms with resulting suicide attempts to manage symptoms and stressors. plan lithium level and repeat CBC encourage food and fluid intake continue home meds and explore consolidating and tapering duplicates. collect collateral information discharge planning with team Patient educated on: diagnosis, medication risk/benefits and therapeutic strategies Informed Consent: understands and further education needed Reason for continued inpatient stay Substantial Risk for: harm to self, inability to function and rapid decompensation Time Spent With Patient Time: Total time managing care of this patient today ____ minutes.
[2023-12-04] MEDS: Acetaminophen 325 MG TABLET 650 MG PO (10:34)
[2023-12-04 15:42] VITALS: BP 107/56; PULSE 98; RESP 18; TEMP 36.9; O2SAT 99
[2023-12-04] MEDS: Mirtazapine 15 MG TABLET PO (20:09)
[2023-12-04] MEDS: traZODone HCL 50 MG TABLET PO (20:10)
[2023-12-04] MEDS: Lithium Carbonate 300 MG TABLET 150 MG PO (20:10)
[2023-12-05] MEDS: Dextroamphetamine/Amphetamine XR 10 MG CAP.ER.24H 30 MG PO (08:06)
[2023-12-05] MEDS: Gabapentin 300 MG CAPSULE PO ×2 (08:06→20:25)
[2023-12-05] MEDS: Cariprazine HCl 3 MG CAPSULE 6 MG PO (08:06)
[2023-12-05] MEDS: Escitalopram Oxalate 5 MG TABLET 15 MG PO (08:06)
[2023-12-05] MEDS: Loratadine 10 MG TABLET PO (08:06)
[2023-12-05] MEDS: Folic Acid 1 MG TABLET PO (08:06)
[2023-12-05] MEDS: Mirabegron 50 MG TAB.ER.24H PO (08:06)
[2023-12-05] MEDS: lamoTRIgine 100 MG TABLET PO (08:06)
[2023-12-05] MEDS: cloNIDine HCL 0.1 MG TABLET PO ×3 (08:07→20:16)
[2023-12-05] MEDS: Omeprazole 20 MG CAPSULE.DR PO (08:07)
[2023-12-05] MEDS: Ibuprofen 400 MG TABLET PO (08:07)
[2023-12-05] MEDS: clonazePAM 1 MG TABLET PO ×3 (08:07→20:15)
[2023-12-05 08:09] VITALS: BP 103/62; PULSE 79; RESP 16; TEMP 36.3; O2SAT 98
--- NOTE | 2023-12-05 09:56 | HO.PSYCHPN ---
Subjective Subjective Date of Service: 12/05/23 Reason For Visit: Bipolar type 2, borderline personality Interim History: met with patient; discussed with team; reviewed chart pt reports she's been depressed but most of her stress is coming from overwhelmed feeling regarding extramarital affair. She feels much better now, back to her regular self and though still depressed, no SI. Discussed therapy and the need for it. Patient shared about her history and says she has been depressed for most of her life. Discussed medication management and she is ambivalent about how much lithium has helped saying she still gets chronic passive SI thoughts. Reviewed other medications and how several of them are at lower doses; she agrees to increasing Lamictal; will also consider increasing others. Patient put in a 3 day notice feeling that she is getting ready to go. Discussed medical comorbidities including history of spherocytosis and subsequent anemia; platelets are also elevated. 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 Currently she does not want to get back on iron supplements or B12. Mental Status Exam Mental Status Exam Narrative: Pt is alert and oriented; behavior is cooperative, friendly and calm; patient is not in distress; dressed in casual attire with unkempt hair but adequate hygiene; mood is described as depressed and affect congruent; eye contact appropriate; Speech is normal rate, volume and prosody and not pressured; some mild psychomotor retardation present; thought process is organized and goal directed; Thought content is on tx; otherwise pertinent to relevant topics and without any delusional content, paranoid ideations or grandiosity; denies any SI/HI. There is no evidence of perceptual disturbance. Patients insight and judgment appear intact. Diagnostics Vital Signs (24Hr): Vital Signs - 24 hr 12/04/23 15:42 12/05/23 08:09 Temperature 98.4 F 97.4 F Pulse Rate 98 79 Respiratory Rate 18 16 Blood Pressure 107/56 L 103/62 Pulse Oximetry 99 98 Oxygen Delivery Method Room Air Room Air BMI result Body Mass Index 31.0 Labs 12/05/23 12:01 12/01/23 15:05 Medications Medications Current Medications Acetaminophen (Acetaminophen 325 Mg Tablet) 650 mg PO Q6H PRN PRN Reason: Headache/Pain Mild Scale (1-3) Last Admin: 12/04/23 10:34 Dose: 650 mg Al Hydroxide/Mg Hydroxide (Magnesium Hydrox/Alum Hydrox 30 Ml Oral.Susp) 30 ml PO Q6H PRN PRN Reason: Heartburn/Nausea Albuterol Sulfate (Albuterol Sulfate (0.042%) 1.25 Mg/3 Ml Vial.Neb) 0.63 mg INHALE QID PRN PRN Reason: shortness of breath or wheezing Albuterol Sulfate (Albuterol Sulfate 90 Mcg 8 Gm Inhaler) 1 puff INHALE RQID PRN PRN Reason: shortness of breath or wheezing Amphetamine/Dextroamphetamine (Dextroamphetamine/Amphetamine Xr 10 Mg Cap.Er.24h) 30 mg PO DAILY [facility] Last Admin: 12/05/23 08:06 Dose: 30 mg Atorvastatin Calcium (Atorvastatin Calcium 10 Mg Tablet) 10 mg PO BEDTIME [facility] Last Admin: 12/04/23 20:11 Dose: Not Given Budesonide (Budesonide 180 Mcg Aer.Pow.Ba) 1 puff INHALE BID [facility] Last Admin: 12/05/23 08:08 Dose: Not Given Calcium Carbonate/Cholecalciferol (Calcium + Vitamin D 250 Mg Tablet) 250 mg PO DAILY [facility] Last Admin: 12/05/23 08:17 Dose: Not Given Cariprazine (Cariprazine Hcl 3 Mg Capsule) 6 mg PO DAILY [facility] Last Admin: 12/05/23 08:06 Dose: 6 mg Clonazepam (Clonazepam 1 Mg Tablet) 1 mg PO TID [facility] Last Admin: 12/05/23 08:07 Dose: 1 mg Clonidine HCl (Clonidine Hcl 0.1 Mg Tablet) 0.1 mg PO TID [facility]; Protocol Last Admin: 12/05/23 08:07 Dose: 0.1 mg Docusate Sodium (Docusate Sodium 100 Mg Capsule) 200 mg PO BEDTIME PRN PRN Reason: Constipation Escitalopram Oxalate (Escitalopram Oxalate 5 Mg Tablet) 15 mg PO DAILY [facility] Last Admin: 12/05/23 08:06 Dose: 15 mg Ferrous Sulfate (Ferrous Sulfate 324 Mg Tablet.Dr) 324 mg PO DAILY [facility] Last Admin: 12/05/23 08:17 Dose: Not Given Fluticasone Propionate (Fluticasone Propionate Nasal 16 Gm [place]) 1 spray NOSTRIL-B Q12H [facility] Last Admin: 12/04/23 20:13 Dose: Not Given Folic Acid (Folic Acid 1 Mg Tablet) 1 mg PO DAILY [facility] Last Admin: 12/05/23 08:06 Dose: 1 mg Gabapentin (Gabapentin 300 Mg Capsule) 300 mg PO BID [facility] Last Admin: 12/05/23 08:06 Dose: 300 mg Hydroxyzine HCl (Hydroxyzine Hcl 25 Mg Tablet) 25 mg PO Q6H PRN PRN Reason: Anxiety Last Admin: 12/02/23 19:25 Dose: 25 mg Ibuprofen (Ibuprofen 400 Mg Tablet) 400 mg PO Q4H PRN PRN Reason: Pain, Moderate(Pain Scale 4-6) Last Admin: 12/05/23 08:07 Dose: 400 mg Lamotrigine (Lamotrigine 100 Mg Tablet) 100 mg PO DAILY [facility] Last Admin: 12/05/23 08:06 Dose: 100 mg [place] Carbonate ([place] Carbonate 300 Mg Tablet) 150 mg PO BEDTIME [facility] Last Admin: 12/04/23 20:10 Dose: 150 mg [place] Carbonate ([place] Carbonate 300 Mg Capsule) 300 mg PO BID [facility] Last Admin: 12/04/23 20:09 Dose: 300 mg Loratadine (Loratadine 10 Mg Tablet) 10 mg PO DAILY [facility] Last Admin: 12/05/23 08:06 Dose: 10 mg Magnesium Hydroxide (Milk Of Magnesia 30 Ml Oral.Susp) 30 ml PO DAILY PRN PRN Reason: Constipation Mirabegron (Mirabegron 50 Mg Tab.Er.24h) 50 mg PO DAILY [facility] Last Admin: 12/05/23 08:06 Dose: 50 mg Mirtazapine (Mirtazapine 15 Mg Tablet) 15 mg PO BEDTIME [facility] Last Admin: 12/04/23 20:09 Dose: 15 mg Non-Formulary Medication (Celebrex) 50 mg PO DAILY [facility] Omeprazole (Omeprazole 20 Mg Capsule.Dr) 20 mg PO DAILY [facility] Last Admin: 12/05/23 08:07 Dose: 20 mg Sumatriptan Succinate (Sumatriptan Succinate 50 Mg Tablet) 50 mg PO DAILY MRX1 PRN PRN Reason: Migraine Headache Trazodone HCl (Trazodone Hcl 50 Mg Tablet) 50 mg PO BEDTIME MRX1 PRN PRN Reason: Insomnia Last Admin: 12/04/23 20:10 Dose: 50 mg Vitamin D (Cholecalciferol (Vitamin D3) 25 Mcg Tablet) 25 mcg PO DAILY [facility] Last Admin: 12/05/23 08:17 Dose: Not Given Allergies Allergies Allergy/AdvReac Type Severity Reaction Status Date / Time No Known Allergies Allergy Verified 11/21/23 09:53 Assessment & Plan Assessment & Plan (1) MDD (major depressive disorder), recurrent severe, without psychosis: Status: Acute Code(s): F33.2 - Major depressive disorder, recurrent severe without psychotic features (2) Depression: Status: Deleted Code(s): F32.9 - Major depressive disorder, single episode, unspecified (3) Suicidal ideation: Status: Resolved Code(s): R45.851 - Suicidal ideations (4) Borderline personality disorder: Status: Chronic Code(s): F60.3 - Borderline personality disorder Plan The patient is a 38 year old female, , mother of 4 minor children, currently living with her family, unemployed on disability Hx of bipolar disorder, PTSD. Her psychiatric provider is Chang Ball and she has [facility] that prepackages her medications and visits her twice daily and case managing services. The patient has an extensive history of Bipolar disorder, Borderline Personality disorder, past history of trauma and several admissions into the hospital for mood symptoms with resulting suicide attempts to manage symptoms and stressors. Hospital course 12/05 pt reports she's been depressed but most of her stress is coming from overwhelmed feeling regarding extramarital affair. She feels much better now, back to her regular self and though still depressed, no SI. Patient shared about her history and says she has been depressed for most of her life. Discussed medication management and she is ambivalent about how much lithium has helped saying she still gets chronic passive SI thoughts. Reviewed other medications and how several of them are at lower doses; she agrees to increasing Lamictal; will also consider increasing others. Patient put in a 3 day notice feeling that she is getting ready to go. Discussed medical comorbidities including history of spherocytosis and subsequent anemia; platelets are also elevated. 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 Currently she does not want to get back on iron supplements or B12. plan 3 day notice q15 min checks Increase Lamictal to 150mg (has been on 100mg for years ); add 25mg today and then to 150mg Will consider increasing Lexapro as well Get lithium level lithium level and repeat CBC encourage food and fluid intake continue home meds and explore consolidating and tapering duplicates. collect collateral information discharge planning with team Patient educated on: diagnosis, medication risk/benefits, therapeutic strategies and medical condition Informed Consent: understands Reason for continued inpatient stay Substantial Risk for: stable for discharge and rapid decompensation Time Spent With Patient Time: Total time managing care of this patient today ____ minutes.
[2023-12-05 12:09] LABS: Basophils Absolute Auto 0.1 X10*3/uL (0.0-0.2); Basophils Percent Auto 0.8 % (0-2); Eosinophils Absolute Auto 0.5 X10*3/uL (0.0-0.4); Hematocrit 34.1 % (37.0-47.0); Hemoglobin 9.8 g/dl (12.0-16.0); Imm Gran Abs Auto 0.03 X10*3/uL (0.00-0.03); Imm Gran Pct Auto 0.2 % (0.0-0.4); Lymphocytes Absolute Auto 5.6 X10*3/uL (1.2-4.9); Lymphocytes Percent Auto 43.5 % (20-40); MANUAL DIFF FLAG SCAN; Mean Corpuscular HGB Conc 28.7 g/dl (31.0-35.0); Mean Corpuscular Hemoglobin 20.5 pg (27.0-33.0); Mean Corpuscular Volume 71.5 fL (80.0-98.0); Mean Platelet Volume 8.7 fL (9.4-12.3); Monocytes Percent Auto 7.5 % (2-11); Neutrophils Absolute Auto 5.7 x10*3/uL (2.0-8.3); Platelet Count 798 X10*3/uL (160-400); Red Blood Count 4.77 X10*6/uL (4.20-5.50); Red Cell Distribution Width 21.7 % (11.0-16.0); SCAN SMEAR FLAG 1; White Blood Count 12.9 X10*3/uL (4.8-10.8)
[2023-12-05] MEDS: lamoTRIgine 25 MG TABLET PO (12:09)
[2023-12-05 12:16] LABS: Lithium 0.94 mmol/L (0.60-1.20)
[2023-12-05 12:31] LABS: SLIDE REVIEW VERIFIED
[2023-12-05] MEDS: Lithium Carbonate 300 MG CAPSULE PO ×2 (12:41→20:15)
[2023-12-05 15:10] VITALS: BP 106/52
[2023-12-05 20:07] VITALS: BP 109/71; PULSE 66; TEMP 36.7; O2SAT 97
[2023-12-05] MEDS: Atorvastatin Calcium 10 MG TABLET PO (20:14)
[2023-12-05] MEDS: Lithium Carbonate 300 MG TABLET 150 MG PO (20:14)
[2023-12-05] MEDS: traZODone HCL 50 MG TABLET PO (20:16)
[2023-12-05] MEDS: Mirtazapine 15 MG TABLET PO (20:16)
[2023-12-06] MEDS: Dextroamphetamine/Amphetamine XR 10 MG CAP.ER.24H 30 MG PO (05:49)
[2023-12-06] MEDS: clonazePAM 1 MG TABLET PO ×3 (08:12→20:10)
[2023-12-06] MEDS: lamoTRIgine 25 MG TABLET 150 MG PO (08:12)
[2023-12-06] MEDS: Escitalopram Oxalate 5 MG TABLET 15 MG PO (08:12)
[2023-12-06] MEDS: Lithium Carbonate 300 MG CAPSULE PO ×2 (08:13→20:09)
[2023-12-06] MEDS: Mirabegron 50 MG TAB.ER.24H PO (08:13)
[2023-12-06] MEDS: Cariprazine HCl 3 MG CAPSULE 6 MG PO (08:13)
[2023-12-06] MEDS: Gabapentin 300 MG CAPSULE PO ×2 (08:13→20:10)
[2023-12-06] MEDS: Omeprazole 20 MG CAPSULE.DR PO (08:13)
[2023-12-06] MEDS: Loratadine 10 MG TABLET PO (08:13)
[2023-12-06] MEDS: cloNIDine HCL 0.1 MG TABLET PO ×2 (08:14→20:10)
[2023-12-06 08:15] VITALS: BP 110/65; PULSE 101; RESP 18; TEMP 36.6; O2SAT 98
--- NOTE | 2023-12-06 11:21 | P.PNPSI_ITS ---
Subjective Subjective Date of Service: 12/06/23 Reason For Visit: Bipolar type 2, borderline personality Interim History: Met with patient; discussed with team discussed [place], level, dosing; agrees to remain on it for nw, agreeing that it maybe partially helpful without realizing. REgarding depression, will also increase lexapro to 20mg (been on 15mg for years ). -3 day due tomorrow and she feels ready for discharge. She says she feels safe, denies any SI. She knows that her situation will continue to be stressful but feels more able to cope with it. Mental Status Exam Mental Status Exam Narrative: Pt is alert and oriented; behavior is cooperative, friendly and calm; patient is not in distress; dressed in casual attire with unkempt hair but adequate hygiene; mood is described as ok and affect congruent, little brigher; eye contact appropriate; Speech is normal rate, volume and prosody and not pressured; some mild psychomotor retardation present; thought process is organized and goal directed; Thought content is on tx; otherwise pertinent to relevant topics and without any delusional content, paranoid ideations or grandiosity; denies any SI/HI. There is no evidence of perceptual disturbance. Patients insight and judgment appear intact. Diagnostics Vital Signs (24Hr): Vital Signs - 24 hr 12/05/23 15:10 12/05/23 20:07 12/06/23 08:15 Temperature 98.1 F 97.9 F Pulse Rate 66 101 H Respiratory Rate 18 Blood Pressure 106/52 L 109/71 110/65 Pulse Oximetry 97 98 Oxygen Delivery Method Room Air Room Air BMI result Body Mass Index 31.0 Labs 12/05/23 12:01 12/01/23 15:05 Labs: Laboratory Results - last 48 hr 12/05/23 12:01 WBC 12.9 H RBC 4.77 Hgb 9.8 L Hct 34.1 L MCV 71.5 L MCH 20.5 L MCHC 28.7 L RDW 21.7 H Plt Count 798 H MPV 8.7 L Immature Gran % (Auto) 0.2 Neut % (Auto) 44.0 L Lymph % (Auto) 43.5 H [place] % (Auto) 7.5 Eos % (Auto) 4.0 Baso % (Auto) 0.8 Lymph # (Auto) 5.6 H [place] # (Auto) 1.0 Eos # (Auto) 0.5 H Baso # (Auto) 0.1 Abs Immat Gran (auto) 0.03 Absolute Neuts (auto) 5.7 Absolute Nucleated RBC 0.000 Nucleated RBC % (auto) 0.0 Smear Tech's Comments VERIFIED [place] 0.94 Medications Medications Current Medications Acetaminophen (Acetaminophen 325 Mg Tablet) 650 mg PO Q6H PRN PRN Reason: Headache/Pain Mild Scale (1-3) Last Admin: 12/04/23 10:34 Dose: 650 mg Al Hydroxide/Mg Hydroxide (Magnesium Hydrox/Alum Hydrox 30 Ml Oral.Susp) 30 ml PO Q6H PRN PRN Reason: Heartburn/Nausea Albuterol Sulfate (Albuterol Sulfate (0.042%) 1.25 Mg/3 Ml Vial.Neb) 0.63 mg INHALE QID PRN PRN Reason: shortness of breath or wheezing Albuterol Sulfate (Albuterol Sulfate 90 Mcg 8 Gm Inhaler) 1 puff INHALE RQID PRN PRN Reason: shortness of breath or wheezing Amphetamine/Dextroamphetamine (Dextroamphetamine/Amphetamine Xr 10 Mg Cap.Er.24h) 30 mg PO DAILY@0600 [facility] Last Admin: 12/06/23 05:49 Dose: 30 mg Atorvastatin Calcium (Atorvastatin Calcium 10 Mg Tablet) 10 mg PO BEDTIME [facility] Last Admin: 12/05/23 20:14 Dose: 10 mg Budesonide (Budesonide 180 Mcg Aer.Pow.Ba) 1 puff INHALE BID [facility] Last Admin: 12/06/23 08:19 Dose: Not Given Calcium Carbonate/Cholecalciferol (Calcium + Vitamin D 250 Mg Tablet) 250 mg PO DAILY [facility] Last Admin: 12/06/23 08:19 Dose: Not Given Cariprazine (Cariprazine Hcl 3 Mg Capsule) 6 mg PO DAILY [facility] Last Admin: 12/06/23 08:13 Dose: 6 mg Clonazepam (Clonazepam 1 Mg Tablet) 1 mg PO TID [facility] Last Admin: 12/06/23 08:12 Dose: 1 mg Clonidine HCl (Clonidine Hcl 0.1 Mg Tablet) 0.1 mg PO TID [facility]; Protocol Last Admin: 12/06/23 08:14 Dose: 0.1 mg Docusate Sodium (Docusate Sodium 100 Mg Capsule) 200 mg PO BEDTIME PRN PRN Reason: Constipation Escitalopram Oxalate (Escitalopram Oxalate 20 Mg Tablet) 20 mg PO DAILY [facility] Ferrous Sulfate (Ferrous Sulfate 324 Mg Tablet.) 324 mg PO DAILY [facility] Last Admin: 12/06/23 08:19 Dose: Not Given Fluticasone Propionate (Fluticasone Propionate Nasal 16 Gm [place]) 1 spray NOSTRIL-B Q12H [facility] Last Admin: 12/05/23 20:51 Dose: Not Given Folic Acid (Folic Acid 1 Mg Tablet) 1 mg PO DAILY [facility] Last Admin: 12/06/23 08:20 Dose: Not Given Gabapentin (Gabapentin 300 Mg Capsule) 300 mg PO BID [facility] Last Admin: 12/06/23 08:13 Dose: 300 mg Hydroxyzine HCl (Hydroxyzine Hcl 25 Mg Tablet) 25 mg PO Q6H PRN PRN Reason: Anxiety Last Admin: 12/02/23 19:25 Dose: 25 mg Ibuprofen (Ibuprofen 400 Mg Tablet) 400 mg PO Q4H PRN PRN Reason: Pain, Moderate(Pain Scale 4-6) Last Admin: 12/05/23 08:07 Dose: 400 mg Lamotrigine (Lamotrigine 25 Mg Tablet) 150 mg PO DAILY [facility] Last Admin: 12/06/23 08:12 Dose: 150 mg [place] Carbonate ([place] Carbonate 300 Mg Tablet) 150 mg PO BEDTIME [facility] Last Admin: 12/05/23 20:14 Dose: 150 mg [place] Carbonate ([place] Carbonate 300 Mg Capsule) 300 mg PO BID [facility] Last Admin: 12/06/23 08:13 Dose: 300 mg Loratadine (Loratadine 10 Mg Tablet) 10 mg PO DAILY [facility] Last Admin: 12/06/23 08:13 Dose: 10 mg Magnesium Hydroxide (Milk Of Magnesia 30 Ml Oral.Susp) 30 ml PO DAILY PRN PRN Reason: Constipation Mirabegron (Mirabegron 50 Mg Tab.Er.24h) 50 mg PO DAILY [facility] Last Admin: 12/06/23 08:13 Dose: 50 mg Mirtazapine (Mirtazapine 15 Mg Tablet) 15 mg PO BEDTIME [facility] Last Admin: 12/05/23 20:16 Dose: 15 mg Patient Own (Celecoxib) 1 each PO DAILY [facility] Last Admin: 12/06/23 09:06 Dose: 1 each Omeprazole (Omeprazole 20 Mg Capsule.) 20 mg PO DAILY [facility] Last Admin: 12/06/23 08:13 Dose: 20 mg Sumatriptan Succinate (Sumatriptan Succinate 50 Mg Tablet) 50 mg PO DAILY MRX1 PRN PRN Reason: Migraine Headache Trazodone HCl (Trazodone Hcl 50 Mg Tablet) 50 mg PO BEDTIME MRX1 PRN PRN Reason: Insomnia Last Admin: 12/05/23 20:16 Dose: 50 mg Vitamin D (Cholecalciferol (Vitamin D3) 25 Mcg Tablet) 25 mcg PO DAILY [facility] Last Admin: 12/06/23 08:19 Dose: Not Given Allergies Allergies Allergy/AdvReac Type Severity Reaction Status Date / Time No Known Allergies Allergy Verified 11/21/23 09:53 Assessment & Plan Assessment & Plan (1) Suicidal ideation: Status: Resolved Code(s): R45.851 - Suicidal ideations (2) Borderline personality disorder: Status: Chronic Code(s): F60.3 - Borderline personality disorder (3) Depression: Status: Deleted Code(s): F32.9 - Major depressive disorder, single episode, unspecified Plan The patient is a 38 year old female, , mother of 4 minor children, currently living with her family, unemployed on disability Hx of bipolar disorder, PTSD. Her psychiatric provider is Chang Ball and she has [facility] that prepackages her medications and visits her twice daily and case managing services. The patient has an extensive history of Bipolar disorder, Borderline Personality disorder, past history of trauma and several admissions into the hospital for mood symptoms with resulting suicide attempts to manage symptoms and stressors. Hospital course 12/05 pt reports she's been depressed but most of her stress is coming from overwhelmed feeling regarding extramarital affair. She feels much better now, back to her regular self and though still depressed, no SI. Patient shared about her history and says she has been depressed for most of her life. Discussed medication management and she is ambivalent about how much lithium has helped saying she still gets chronic passive SI thoughts. Reviewed other medications and how several of them are at lower doses; she agrees to increasing Lamictal; will also consider increasing others. Patient put in a 3 day notice feeling that she is getting ready to go. Discussed medical comorbidities including history of spherocytosis and subsequent anemia; platelets are also elevated. 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 Currently she does not want to get back on iron supplements or B12. 12/06Met with patient; discussed with team discussed [place], level, dosing; agrees to remain on it for nw, agreeing that it maybe partially helpful without realizing. REgarding depression, will also increase lexapro to 20mg (been on 15mg for years ). -3 day due tomorrow and she feels ready for discharge. She says she feels safe, denies any SI. She knows that her situation will continue to be stressful but feels more able to cope with it. Patients 3 day notice is due tomorrow and she feels ready for discharge, without any SI and able to handle her stressful home life situation. Patient declines to remain on the unit for more medication management, preferring to discuss any further changes with her outpatient provider with whom she has a good rapport. She has remained with good behavioral and impulse control, appropriate with peers and staff and engaged in treatment. Patient's issues and situation are chronic and will not change with longer stay on inpatient unit. She has not in imminent risk with harm to self or others and request for discharge honored. plan 3 day notice q15 min checks Continue Lamictal to 150mg (has been on 100mg for years ); add 25mg today and then to 150mg Increase Lexapro 20 mg lithium level and repeat CBC encourage food and fluid intake continue home meds and explore consolidating and tapering duplicates. collect collateral information discharge planning with team Patient educated on: diagnosis and medication risk/benefits Informed Consent: understands Reason for continued inpatient stay Substantial Risk for: stable for discharge Time Spent With Patient Time: Total time managing care of this patient today ____ minutes.
[2023-12-06] MEDS: Escitalopram Oxalate 5 MG TABLET PO (12:14)
[2023-12-06 14:33] VITALS: BP 99/53
[2023-12-06] MEDS: Budesonide 180 MCG AER.POW.BA 1 PUFF INHALE (20:08)
[2023-12-06] MEDS: Mirtazapine 15 MG TABLET PO (20:09)
[2023-12-06] MEDS: traZODone HCL 50 MG TABLET PO (20:09)
[2023-12-06] MEDS: Lithium Carbonate 300 MG TABLET 150 MG PO (20:09)
--- NOTE | 2023-12-06 21:40 | P.DS_ITS ---
DS: Providers Provider Date of Service: 12/07/23 Date of admission: 12/02/23 11:49 Date of discharge: 12/07/23 Primary care physician: Rhoda Pina MD Admitting clinician: Jennifer Aguilar Attending physician on discharge: Owen Nayak DS: Diagnosis Discharge Diagnosis (1) Suicidal ideation: Status: Resolved (2) Borderline personality disorder: Status: Chronic (3) Depression: Status: Deleted DS: Medications Discharge Medications Home Medications: Home Medications Medication Instructions Recorded Confirmed dextroamphetamine-amphetamine ER 1 cap PO DAILY 02/07/23 12/03/23 30 mg 24hr capsule,extend release simvastatin 20 mg tablet 20 mg PO BEDTIME 02/07/23 12/03/23 Celebrex 50 mg PO DAILY 12/02/23 12/03/23 [id number] 250 See Rx Instructions .Route 12/02/23 12/03/23 mg-250 mg-65 mg tablet (Excedrin .COMPLEX PRN MIGRAINE/HEADACHE Migraine) calcium carbonate 600 mg-vitamin 1 tab PO DAILY 12/02/23 12/03/23 D3 10 mcg (400 unit) tablet (Calcium 600 + D(3)) clonazepam 1 mg tablet 1 mg PO TID 12/02/23 12/03/23 clonidine HCl 0.1 mg tablet 0.1 mg PO TID 12/02/23 12/03/23 docusate sodium 100 mg capsule 200 mg PO BEDTIME PRN Constipation 12/02/23 12/03/23 esomeprazole magnesium 40 mg 40 mg PO DAILY 12/02/23 12/03/23 capsule,delayed release (Nexium) folic acid 1 mg tablet 1 mg PO DAILY 12/02/23 12/03/23 lithium carbonate 150 mg capsule 150 mg PO BEDTIME 12/02/23 12/03/23 lithium carbonate 300 mg capsule 300 mg PO BID 12/02/23 12/03/23 loratadine 10 mg tablet 10 mg PO DAILY 12/02/23 12/03/23 mirtazapine 7.5 mg tablet 15 mg PO BEDTIME 12/02/23 12/03/23 sumatriptan succinate 50 mg tablet 50 mg PO DAILY MRX1 PRN Migraine 12/02/23 12/03/23 Headache Previous Rx's Medication Instructions Recorded cariprazine 6 mg capsule (Vraylar) 6 mg PO DAILY 30 days #30 caps 03/04/21 cholecalciferol (vitamin D3) 25 25 mcg PO DAILY #30 tabs 03/04/21 mcg (1,000 unit) tablet fluticasone propionate 50 1 spray intranasal Q12H #16 grams 03/04/21 mcg/actuation nasal spray,suspension (Flonase Allergy Relief) gabapentin 300 mg capsule 300 mg PO BID #60 caps 03/04/21 trazodone 50 mg tablet 50 mg PO BEDTIME PRN Insomnia 30 03/04/21 days #30 tabs albuterol sulfate 0.63 mg/3 mL 0.63 mg (3 mL) inhalation QID PRN 10/06/21 solution for nebulization shortness of breath or wheezing #75 mL nebulizers (AeroEclipse II #1 ea 10/06/21 Nebulizer) mirabegron 25 mg tablet,extended 50 mg (2 x 25 mg) PO DAILY 90 days 07/15/23 release 24 hr (Myrbetriq) #180 tabs albuterol sulfate 90 mcg/actuation 1 inh inhalation QID PRN shortness 11/21/23 aerosol inhaler of breath or wheezing #8.5 grams budesonide 180 mcg/actuation 1 inh inhalation BID ASTHMA 30 11/21/23 breath activated powder inhaler days #1 ea (Pulmicort Flexhaler) escitalopram oxalate 20 mg tablet 20 mg PO DAILY 30 days #30 tabs 12/06/23 lamotrigine 150 mg tablet 150 mg PO DAILY 30 days #30 tabs 12/06/23 trazodone 50 mg tablet 50 mg PO BEDTIME PRN Insomnia 30 12/06/23 days #30 tabs Mental Status Exam Mental Status Exam Narrative: Pt is alert and oriented; behavior is cooperative, friendly and calm; patient is not in distress; dressed in casual attire with unkempt hair but adequate hygiene; mood is described as ok and affect congruent, little brigher; eye contact appropriate; Speech is normal rate, volume and prosody and not pressured; some mild psychomotor retardation present; thought process is organized and goal directed; Thought content is on tx; otherwise pertinent to relevant topics and without any delusional content, paranoid ideations or grandiosity; denies any SI/HI. There is no evidence of perceptual disturbance. Patients insight and judgment appear intact. Data Data Completed and Pending Completed studies during hospitalization [Text1]: 12/01/23 12/01/23 12/03/23 14:56 15:05 07:19 WBC 12.8 H RBC 4.60 Hgb 9.4 L Hct 33.6 L MCV 73.0 L MCH 20.4 L MCHC 28.0 L RDW 22.2 H Plt Count 718 H MPV 9.2 L Immature Gran % (Auto) 0.3 Neut % (Auto) 44.9 L Lymph % (Auto) 43.7 H [place] % (Auto) 6.0 Eos % (Auto) 4.3 H Baso % (Auto) 0.8 Lymph # (Auto) 5.6 H [place] # (Auto) 0.8 Eos # (Auto) 0.6 H Baso # (Auto) 0.1 Abs Immat Gran (auto) 0.04 H Absolute Neuts (auto) 5.8 Absolute Nucleated RBC 0.000 Nucleated RBC % (auto) 0.0 Smear Tech's Comments VERIFIED Sodium 138 Potassium 4.6 Chloride 106 Carbon Dioxide 24 Anion Gap 13 BUN 11 Creatinine 0.75 Estim Creat Clear Calc 100.4 Estimated GFR > 60 Random Glucose 131 H Estimat Average Glucose 103 Hemoglobin A1c % 5.2 Calcium 9.7 Magnesium 2.2 2.2 Total Bilirubin 0.2 AST 15 ALT 18 Alkaline Phosphatase 74 Total Protein 7.0 Albumin 4.1 Triglycerides 204 H Cholesterol 237 H LDL Cholesterol, Calc 159 H HDL Cholesterol 38 L Vitamin B12 304 Folate 6.4 TSH 1.28 Free T4 0.81 Urine Color Yellow Urine Appearance Clear Urine pH 6.5 Ur Specific [place] 1.020 Urine Protein Negative Urine Glucose (UA) Negative Urine Ketones Negative Urine Blood Negative Urine Nitrite Negative Ur Leukocyte Esterase Trace H Urine RBC 0-2 Urine WBC 0-5 Ur Squamous Epith Cells 6-10 Urine Bacteria Trace Hyaline Casts 0-2 Urine Test NEGATIVE Salicylates < 5.0 L Urine Opiates Screen Not Detected Urine Fentanyl Screen Not Detected Acetaminophen < 3 Ur Barbiturates Screen Not Detected Ur Phencyclidine Scrn Not Detected Ur Amphetamines Screen POSITIVE H U Benzodiazepines Scrn POSITIVE H [place] Urine Cocaine Screen Not Detected U Marijuana (THC) Screen POSITIVE H Ethyl Alcohol < 10 COVID-19 ([facility]) Negative COVID-19 Clin Com See Note 12/05/23 12:01 WBC 12.9 H RBC 4.77 Hgb 9.8 L Hct 34.1 L MCV 71.5 L MCH 20.5 L MCHC 28.7 L RDW 21.7 H Plt Count 798 H MPV 8.7 L Immature Gran % (Auto) 0.2 Neut % (Auto) 44.0 L Lymph % (Auto) 43.5 H [place] % (Auto) 7.5 Eos % (Auto) 4.0 Baso % (Auto) 0.8 Lymph # (Auto) 5.6 H [place] # (Auto) 1.0 Eos # (Auto) 0.5 H Baso # (Auto) 0.1 Abs Immat Gran (auto) 0.03 Absolute Neuts (auto) 5.7 Absolute Nucleated RBC 0.000 Nucleated RBC % (auto) 0.0 Smear Tech's Comments VERIFIED Sodium Potassium Chloride Carbon Dioxide Anion Gap BUN Creatinine Estim Creat Clear Calc Estimated GFR Random Glucose Estimat Average Glucose Hemoglobin A1c % Calcium Magnesium Total Bilirubin AST ALT Alkaline Phosphatase Total Protein Albumin Triglycerides Cholesterol LDL Cholesterol, Calc HDL Cholesterol Vitamin B12 Folate TSH Free T4 Urine Color Urine Appearance Urine pH Ur Specific [place] Urine Protein Urine Glucose (UA) Urine Ketones Urine Blood Urine Nitrite Ur Leukocyte Esterase Urine RBC Urine WBC Ur Squamous Epith Cells Urine Bacteria Hyaline Casts Urine Test Salicylates Urine Opiates Screen Urine Fentanyl Screen Acetaminophen Ur Barbiturates Screen Ur Phencyclidine Scrn Ur Amphetamines Screen U Benzodiazepines Scrn [place] 0.94 Urine Cocaine Screen U Marijuana (THC) Screen Ethyl Alcohol COVID-19 ([facility]) COVID-19 Clin Com DS: Summary Hospital Course Hospital Course: The patient is a 38 year old female, , mother of 4 minor children, currently living with her family, unemployed on disability Hx of bipolar disorder, PTSD. Her psychiatric provider is Chang Ball and she has [facility] that prepackages her medications and visits her twice daily and case managing services. The patient has an extensive history of Bipolar disorder, Borderline Personality disorder, past history of trauma and several admissions into the hospital for mood symptoms with resulting suicide attempts to manage symptoms and stressors.s Hospital course 12/05 pt reports she's been depressed but most of her stress is coming from overwhelmed feeling regarding extramarital affair. She feels much better now, back to her regular self and though still depressed, no SI. Patient shared about her history and says she has been depressed for most of her life. Discussed medication management and she is ambivalent about how much lithium has helped saying she still gets chronic passive SI thoughts. Reviewed other medications and how several of them are at lower doses; she agrees to increasing Lamictal; will also consider increasing others. Patient put in a 3 day notice feeling that she is getting ready to go. Discussed medical comorbidities including history of spherocytosis and subsequent anemia; platelets are also elevated. 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 Currently she does not want to get back on iron supplements or B12. 12/06Met with patient; discussed with team discussed [place], level, dosing; agrees to remain on it for nw, agreeing that it maybe partially helpful without realizing. REgarding depression, will also increase lexapro to 20mg (been on 15mg for years ). -3 day due tomorrow and she feels ready for discharge. She says she feels safe, denies any SI. She knows that her situation will continue to be stressful but feels more able to cope with it. Continue Lamictal 150 mg (increased on admission) Continue Lexapro 20 mg (increased on admission) Patients 3 day notice is due tomorrow and she feels ready for discharge, without any SI and able to handle her stressful home life situation. Patient declines to remain on the unit for more medication management, preferring to discuss any further changes with her outpatient provider with whom she has a good rapport. She has remained with good behavioral and impulse control, appropriate with peers and staff and engaged in treatment. Patient's issues and situation are chronic and will not change with longer stay on inpatient unit. She has not in imminent risk with harm to self or others and request for discharge honored. Time spent discussing smoking cessation with patient: 3 to 10 minutes Status at Discharge Functional status at discharge: independent ambulation Overall status at discharge: patient is back to baseline Time Spent with Patient Time attestation: Total time managing care of this patient today ____ minutes. Time spent: Less than 30 minutes Discharge Plan Discharge Anticipated Discharge Date/Time: 12/07/23 11:30 Patient Disposition: Home, Self-Care Discharge Diagnosis: Bipolar disorder, current episode depressed Referrals: Psych Prescriber: Chang Ball ([facility]) [Other] - 12/28/23 9:30 am (Appointment is in person at the office in [place] and is scheduled for 30 minutes) Therapist: Naila Blanton ([place] [facility]) [Other] - 1 Week PHP Intake: [facility] [Other] - 12/19/23 11:00 am (Follow silver signs with blue writing for [facility]; use the walkway from parking lot C to the side door of the brick building attached to the trailer, take a right upon entering the building. ) Rhoda Pina MD [Primary Care Provider] - 12/08/23 10:45 am (in office) Discharge Medications: New trazodone 50 mg Tablet 50 mg PO BEDTIME PRN (Reason: Insomnia) 30 Days Qty: 30 0RF Continued cholecalciferol (vitamin D3) 25 mcg (1,000 unit) Tablet 25 mcg PO DAILY Qty: 30 0RF gabapentin 300 mg capsule 300 mg PO BID Qty: 60 0RF fluticasone propionate [Flonase Allergy Relief] 50 mcg/actuation spray,suspension 1 spray intranasal Q12H Qty: 16 0RF Rx Instructions: administer into each nostril trazodone 50 mg Tablet 50 mg PO BEDTIME PRN (Reason: Insomnia) 30 Days Qty: 30 0RF Vraylar 6 mg capsule 6 mg PO DAILY 30 Days Qty: 30 0RF (DME) nebulizers [AeroEclipse II Nebulizer] [facility] See Rx Instructions .ROUTE .MEDSUPPLY Qty: 1 0RF Rx Instructions: As directed albuterol sulfate 0.63 mg/3 mL solution for nebulization 0.63 mg inhalation QID PRN (Reason: shortness of breath or wheezing) Qty: 75 0RF clonidine HCl 0.1 mg tablet 0.1 mg PO TID folic acid 1 mg tablet 1 mg PO DAILY loratadine 10 mg tablet 10 mg PO DAILY lithium carbonate 150 mg Capsule 150 mg PO BEDTIME esomeprazole magnesium [Nexium] 40 mg Capsule,Delayed Release(Dr/Ec) 40 mg PO DAILY Excedrin Migraine 250-250-65 mg Tablet See Rx Instructions .ROUTE .COMPLEX PRN (Reason: MIGRAINE/HEADACHE) Rx Instructions: Q6HR PRN Celebrex 50 mg PO DAILY clonazepam 1 mg tablet 1 mg PO TID sumatriptan succinate 50 mg tablet 50 mg PO DAILY MRX1 PRN (Reason: Migraine Headache) lithium carbonate 300 mg capsule 300 mg PO BID docusate sodium 100 mg capsule 200 mg PO BEDTIME PRN (Reason: Constipation) mirtazapine 7.5 mg tablet 15 mg PO BEDTIME calcium carbonate-vitamin D3 [Calcium 600 + D(3)] 600 mg-10 mcg (400 unit) Tablet 1 tab PO DAILY dextroamphetamine-amphetamine 30 mg capsule,extended release 24hr 1 cap PO DAILY simvastatin 20 mg tablet 20 mg PO BEDTIME Myrbetriq 25 mg tablet extended release 24 hr 50 mg PO DAILY 90 Days Qty: 180 1RF Pulmicort Flexhaler 180 mcg/actuation aerosol powdr breath activated 1 inh inhalation BID 30 Days Qty: 1 5RF albuterol sulfate 90 mcg/actuation HFA aerosol inhaler 1 inh inhalation QID PRN (Reason: shortness of breath or wheezing) Qty: 8.5 3RF Changed lamotrigine 150 mg tablet 150 mg PO DAILY 30 Days Qty: 30 0RF escitalopram oxalate 20 mg tablet 20 mg PO DAILY 30 Days Qty: 30 0RF Discontinued ferrous gluconate 324 mg PO DAILY Discharge Orders: Discharge Order (Routine); Ordered 12/07/23 Ordered By: Owen Nayak Diet: Advance to usual diet Activity on Discharge: As tolerated Stand Alone Forms: Patient Portal Discharge page, Community Support Care Plan Goals: Maintain mood and safe behaviors Take medications as prescribed Practice coping skills Continue with outpatient providers and reach out to them as needed Health Concerns: Mood stability and behaviors Microcytic anemia Elevated Platelets Elevated Cholesterol Plan of Treatment: Follow up with your PCP, Anti Air Warfare Operations Officer, psychiatric provider and other outpatient providers regarding above concerns Take medications as prescribed Assessment: Risk assessment at time of discharge:? Patient was interviewed prior to discharge and found to be fully oriented and without any SI or HI. Patient has improved insight and judgment and wants to continue treatment. Patient is not in imminent risk of harm to self or others and has a safety plan that includes presenting to the closest ER or calling 911 if feeling unsafe.? Patient has been observed closely by nursing and unit staff throughout admission; patient has not engaged in any behaviors that suggest dangerousness to self or others and has demonstrated appropriate behaviors and impulse control Discharge Date/Time: 12/07/23 11:56
[2023-12-07] MEDS: Dextroamphetamine/Amphetamine XR 10 MG CAP.ER.24H 30 MG PO (05:13)
[2023-12-07 05:16] VITALS: BP 110/69; PULSE 102; RESP 16; TEMP 36.6; O2SAT 98
[2023-12-07] MEDS: lamoTRIgine 25 MG TABLET 150 MG PO (07:54)
[2023-12-07] MEDS: Lithium Carbonate 300 MG CAPSULE PO (07:55)
[2023-12-07] MEDS: clonazePAM 1 MG TABLET PO (07:55)
[2023-12-07] MEDS: Escitalopram Oxalate 20 MG TABLET PO (07:55)
[2023-12-07] MEDS: Omeprazole 20 MG CAPSULE.DR PO (07:55)
[2023-12-07] MEDS: Gabapentin 300 MG CAPSULE PO (07:55)
[2023-12-07] MEDS: Cariprazine HCl 3 MG CAPSULE 6 MG PO (07:55)
[2023-12-07] MEDS: Loratadine 10 MG TABLET PO (07:56)
[2023-12-07] MEDS: Mirabegron 50 MG TAB.ER.24H PO (07:56)
[2023-12-07 08:09] VITALS: BP 124/84; PULSE 93; RESP 16; TEMP 36.6; O2SAT 97
[2023-12-07] MEDS: cloNIDine HCL 0.1 MG TABLET PO (08:11)
== END 2023-12-07 11:56 | disposition home or self-care (01) | DRG 885 ==
LOC: HO.ED 12-02 11:20 → HO.PM5 12-02 12:01
PROVIDERS: Clinical Nurse Specialist Psychiatric/Mental Health; Physician Assistant; Admitting Provider Clinical Nurse Specialist Psychiatric/Mental Health, Adult; Emergency Provider Emergency Medicine; PCP Student in an Organized Health Care Education/Training Program; Visit Provider Psychiatry & Neurology Psychiatry
DX: F33.2 Major depressive disorder, recurrent severe without psychotic features (principal); R45.851 Suicidal ideations; F43.10 Post-traumatic stress disorder, unspecified; F60.3 Borderline personality disorder; D75.839 Thrombocytosis, unspecified; Z20.822 Contact with and (suspected) exposure to COVID-19; Z87.891 Personal history of nicotine dependence; Z79.51 Long term (current) use of inhaled steroids; Z79.899 Other long term (current) drug therapy
CPT/HCPCS: 36415; 80053; 80061; 80143; 80178; 80179; 80307; 81001; 81003; 81025; 82607; 82746; 83036; 83735; 84439; 84443; 85025; 87635; 93005; 99285

== ENCOUNTER → 2023-12-02 08:32 | Outpatient (BNV) | payer MEDICARE, MEDICAID, SELFPAY | PROVIDERS: Admitting Provider Clinical Nurse Specialist Psychiatric/Mental Health, Adult; Emergency Provider Emergency Medicine; PCP Student in an Organized Health Care Education/Training Program; Visit Provider Internal Medicine Cardiovascular Disease | DX: R00.1 Bradycardia, unspecified (principal) | CPT/HCPCS: 93010 ==

== ENCOUNTER → 2023-12-02 11:49 | Outpatient (BNV) | payer MEDICARE, MEDICAID, SELFPAY | PROVIDERS: Admitting Provider Clinical Nurse Specialist Psychiatric/Mental Health, Adult; Emergency Provider Emergency Medicine; PCP Student in an Organized Health Care Education/Training Program; Visit Provider Clinical Nurse Specialist Psychiatric/Mental Health | DX: F60.3 Borderline personality disorder (principal); F33.2 Major depressive disorder, recurrent severe without psychotic features; R45.851 Suicidal ideations | CPT/HCPCS: 90792; 99232; 99238 ==

== ENCOUNTER 2024-01-23 12:49 | Outpatient (REF) | payer MEDICARE, MEDICAID, SELFPAY | END 2024-01-23 12:50 | disposition home or self-care (01) | LOC: HO.LNP 12:49 | PROVIDERS: PCP Student in an Organized Health Care Education/Training Program; Visit Provider Nurse Practitioner Family | DX: N39.0 Urinary tract infection, site not specified (principal); N32.81 Overactive bladder; R32 Unspecified urinary incontinence; Z79.899 Other long term (current) drug therapy | CPT/HCPCS: 51798; 81003; 87086; 99212 ==

== ENCOUNTER 2024-01-23 12:49 | Outpatient (AMB) | payer MEDICARE, MEDICAID, SELFPAY ==
--- NOTE | 2024-01-23 13:07 | A.OFFVIS_ITS ---
Intake Intake Visit Reasons: 3 month follow up w/PVR Intake Note: Patient presents for follow up incontinence/frequency/uti Urology Medications: myrbetriq Blood Thinner: none PVR: 0ml's Data Warehouse Specialist Required: No Accompanied by: Self / Same As Patient Allergies No Known Allergies Allergy (Verified 01/23/24 13:12) HPI HPI Comments History of Present Illness Details Tammy is a pleasant 38 year old female who is a patient of Dr. Pina. She has a PMH of anxiety, depression, PTSD, bipolar, GERD, headaches, and insomnia. She presents to the office today for follow-up of her overactive bladder and recurrent urinary tract infections. In discussion with the patient today she reports to be doing and feeling well. She reports noting significant improvement in lower urinary tract symptoms on 50 mg of Myrbetriq daily however she does continue with episodes of incontinence. In office urinalysis results reviewed with the patient today. 3+ leukocytes negative nitrates. When asked she does report noting cloudy urine. She otherwise denies hematuria, dysuria, foul smelling urine, changes to urinary stream, flank pain, fever, and or chills. Previous workup has included a retroperitoneal ultrasound noting a few scattered echogenic foci in both kidneys. No echogenic stones or hydronephrosis. Small post void residual bladder volume. Normal bilateral ureteral jets seen. She otherwise denies any other issues or concerns at this time. [facility] Medical History MDD (major depressive disorder), recurrent severe, without psychosis Bipolar 2 disorder Pre-op evaluation Seasonal allergies Urinary frequency Incontinence HLD (hyperlipidemia) Clonidine overdose Polysubstance overdose Asthma Bronchitis Smoker Posttraumatic stress disorder Borderline personality disorder Bipolar disorder, unspecified B12 deficiency Anemia Migraines Cervical cancer COPD (chronic obstructive pulmonary disease) Depression Anxiety Surgical History History of esophagogastroduodenoscopy (EGD) History of bilateral tubal ligation History of total splenectomy Family History Father No problems noted. Mother No problems noted. Social History Household Members: Family Housing: Apartment Do you presently have visiting nurse or other home services: No Alcohol intake: never Comment: 1:1 sitter Patient Tobacco Use Status: Former Tobacco user Quit Date: 02/2023 Tobacco use type: Cigarette Cigarette Packs Per Day: 1.5 Cigarettes Per Day: 30.0 Years Smoked: 15 e-Cigarette/Vaping Use: Currently Using Second Hand Smoke Exposure: No Substance Use Type: Amphetamines and Sedatives service: No Current occupational status: disabled 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 Sexual orientation: Did not discuss Review of Systems Const Reports as per HPI Eyes Reports no additional complaints ENT Reports no additional complaints Card Reports no additional complaints Resp Reports no additional complaints GI Reports no additional complaints Reports as per HPI Musc Details: Reports as per HPI Psych Reports as per HPI Physical Exam Const General: cooperative, comfortable, no acute distress, well developed, alert and awake Nutritional Appearance: overweight Orientation/consciousness: patient oriented x3 Limitations: no limitations HEENT Head: Yes normal to inspection Ears: hearing grossly normal bilaterally Eyes General: appearance normal, both eyes and all related structures Neck Neck: Yes normal visual inspection and Yes trachea midline Chest Chest palpation & inspection: normal inspection of the chest Cardio Rate: regular rate GI Inspection: Yes normal to inspection General: Yes no CVA tenderness Back/Spine/Pelvis Back: no CVA tenderness Neuro General: patient oriented x3 Extrem General: Yes normal to inspection Psych Mental Status: mental status grossly normal Speech and movement: Normal speech and movement present and Clear speech present Affect: Other affect and mood findings present (flat affect ) Attitude: cooperative Insight: Fair insight present (Psych) Judgement: Fair judgement present (Psych) Office Procedures Post Void Residual Post Residual Void Post Void Residual (PVR): 0 [id number] Void Residual by ultrasound Results AMB Urinalysis, Automated UA Leukoctes 500 [place]al[place]/uL Last Edit by [employer] on 01/23/24 13:21 UA Nitrite Negative Last Edit by [employer] on 01/23/24 13:21 UA Urobilinogen 0.2 mg/dL Last Edit by [employer] on 01/23/24 13:21 UA Protein 15 mg/dL Last Edit by [employer] on 01/23/24 13:21 UA pH 7.0 Last Edit by [employer] on 01/23/24 13:21 UA Blood 0 [place]ill[place]/uL Last Edit by [employer] on 01/23/24 13:21 UA Specific [place] 1.010 Last Edit by Messi Leos on 01/23/24 13:21 UA Ketone Negative Last Edit by Messi Leos on 01/23/24 13:21 UA Bilirubin 0 mg/dL Last Edit by Messi Leos on 01/23/24 13:21 UA Glucose 0 mg/dL Last Edit by Messi Leos on 01/23/24 13:21 Results Reviewed Results Reviewed: Laboratory Last Values Urine pH (Auto) 7.0 01/23/24 13:14 Specific [place] (Auto) 1.010 01/23/24 13:14 Urine Protein (Auto) 15 mg/dL 01/23/24 13:14 Glucose (UA)(Auto) 0 mg/dL 01/23/24 13:14 Urine Ketones (Auto) Negative 01/23/24 13:14 Urine Blood (Auto) 0 Guillermo/uL 01/23/24 13:14 Urine Nitrite (Auto) Negative 01/23/24 13:14 Urine Bilirubin (Auto) 0 mg/dL 01/23/24 13:14 Urine Urobilinogen (Auto) 0.2 mg/dL 01/23/24 13:14 Leukocyte Esterase (Auto) 500 [place]/uL 01/23/24 13:14 Assessment & Plan Assessment & Plan (1) Urinary frequency: Code(s): R35.0 - Frequency of micturition (2) Incontinence: Code(s): R32 - Unspecified urinary incontinence Plan In office urinalysis results reviewed with patient today; as noted above; will send for urine culture. PVR 0 mL. Patient currently denies any bothersome urinary issues or concerns. Continue Myrbetriq 50 mg daily; as discussed and prescribed. Start VESIcare 5 mg daily as discussed and prescribed Discussed UTI prevention with D mannose supplement, vitamin-C, increasing fluid intake, behavioral therapy with timed voiding, perineal hygiene and postcoital voiding, and management of constipation with stool softeners and increased fiber intake. Discussed bladder triggers/irritants. Discussed possible near future in office cystoscopy for further assessment evaluation. Follow-up in 3 months with PVR; or sooner with any issues, concerns, and or questions Orders: Orders AMB Post Void Residual by ultrasound Today N39.0 - Urinary tract infection, site not specified Urine Culture Today N39.0 - Urinary tract infection, site not specified AMB Urinalysis Automated Today Z13.9 - Encounter for screening, unspecified Medications: New solifenacin (Vesicare) 5 mg PO DAILY 30 days 30 tabs 3RF Patient Instructions: The patient had an opportunity to ask questions regarding the treatment plan. All questions were answered. Physical exam, labs, and imaging were discussed and reviewed in detail. As well as risks, benefits, and discussion of treatment choices. No major barriers to understanding were identified. The patient expressed understanding and agreement with the above treatment plan. The patient was made aware they should contact our office by phone for worsening of their current condition, the appearance of new symptoms, or with any questions or concerns. Compliance is encouraged with any medications and follow up testing that is ordered. It is a privilege to be allowed the opportunity to participate in? your urological care.? Again, if you have any questions or concerns If you have any questions or concerns please do not hesitate to contact me. The office is [phone]. This note is constructed using voice recognition software. While every effort has been made to ensure accuracy contract administration specialist errors may have been included. Yours sincerely, SRI Mckay Coding Level of Care Code Est Pt Level 4 (03804) Diagnoses Urinary frequency R35.0 Incontinence R32 CPT Codes Post Residual Void - PVR CPT Code: 21811-Dond Void Residual by ultrasound ([id number])
== END 2024-01-23 13:51 | disposition home or self-care (01) ==
PROVIDERS: PCP Student in an Organized Health Care Education/Training Program; Visit Provider Nurse Practitioner Family
DX: R35.0 Frequency of micturition (principal); R32 Unspecified urinary incontinence; Z13.9 Encounter for screening, unspecified
CPT/HCPCS: 99214

== ENCOUNTER 2024-03-02 09:45 | Outpatient (REF) | payer MEDICARE, MEDICAID, SELFPAY ==
[2024-03-02 10:01] LABS: MANUAL DIFF FLAG NO
[2024-03-02 10:38] LABS: Basophils Absolute Auto 0.1 X10*3/uL (0.0-0.2); Eosinophils Absolute Auto 0.4 X10*3/uL (0.0-0.4); Eosinophils Percent Auto 3.9 % (0-4); Hemoglobin 13.8 g/dl (12.0-16.0); Lymphocytes Absolute Auto 3.2 X10*3/uL (1.2-4.9); Lymphocytes Percent Auto 31.5 % (20-40); Mean Corpuscular HGB Conc 33.7 g/dl (31.0-35.0); Mean Corpuscular Hemoglobin 29.6 pg (27.0-33.0); Mean Platelet Volume 10.5 fL (9.4-12.3); Monocytes Absolute Auto 0.9 X10*3/uL (0.1-1.2); Monocytes Percent Auto 8.7 % (2-11); Neutrophils Absolute Auto 5.6 x10*3/uL (2.0-8.3); Neutrophils Percent Auto 53.9 % (45-73); Platelet Count 439 X10*3/uL (160-400); Red Blood Count 4.66 X10*6/uL (4.20-5.50); Red Cell Distribution Width 25.1 % (11.0-16.0); White Blood Count 10.3 X10*3/uL (4.8-10.8)
[2024-03-02 11:23] LABS: Lithium 0.42 mmol/L (0.60-1.20)
[2024-03-02 11:36] LABS: Cholesterol 216 mg/dL (<200); HDL Cholesterol 50 mg/dL (>40); Iron 59 mcg/dL (30-160); LDL Cholesterol Calculated 131 mg/dL (<100); Percent Iron Saturation 20 % (15-50); Total Iron Binding Capacity 299 mcg/dL (228-428); Triglycerides 175 mg/dL (<150); Unsaturated Iron Binding 240 ug/dL
[2024-03-02 11:37] LABS: Ferritin 23 ng/mL (10-250)
== END 2024-03-02 09:46 | disposition home or self-care (01) ==
LOC: HO.LAB 09:45
PROVIDERS: PCP Student in an Organized Health Care Education/Training Program; Visit Provider Registered Nurse
DX: D50.8 Other iron deficiency anemias (principal); F31.62 Bipolar disorder, current episode mixed, moderate; R79.9 Abnormal finding of blood chemistry, unspecified
CPT/HCPCS: 36415; 80061; 80178; 82728; 83540; 85025

== ENCOUNTER 2024-03-26 10:06 | Outpatient (AMB) | payer MEDICARE, MEDICAID, SELFPAY ==
[2024-03-26 10:19] VITALS: BP 110/64; PULSE 90; O2SAT 97; BMI 32.6
--- NOTE | 2024-03-26 10:19 | MHC.OFFVIS ---
Vital Signs 03/26/24 10:19 Height 5 ft 3 in Weight 184 lb 1.376 oz BMI 32.6 BP 110/64 Blood Pressure Location Lt brachial Position Sitting Pulse 90 Pulse Oximetry (%) 97 Oxygen Delivery Method Room Air Intake Visit Reasons: COPD Network Analyst Required: No Tube Bending Machine Operator: Tube Bending Machine Operator offered & declined Allergies No Known Allergies Allergy (Verified 03/26/24 11:44) Medication List - Last Reconciled 03/26/24 by Ana Ricks MD albuterol sulfate 0.63 mg (3 mL) inhalation QID PRN albuterol sulfate 90 mcg/actuation 1 inh inhalation QID PRN [id number] 250-250-65 mg (Excedrin Migraine) Q6HR PRN budesonide 180 mcg/actuation (Pulmicort Flexhaler) 1 inh inhalation BID 30 days calcium carbonate-vitamin D3 600 mg-10 mcg (400 unit) (Calcium 600 + D(3)) 1 tab PO DAILY cariprazine (Vraylar) 6 mg PO DAILY 30 days [Celebrex 50 mg PO DAILY] cholecalciferol (vitamin D3) 25 mcg PO DAILY clonazepam 1 mg PO TID clonidine HCl 0.1 mg PO TID dextroamphetamine-amphetamine 30 mg ER 1 cap PO DAILY docusate sodium 200 mg PO BEDTIME PRN escitalopram oxalate 20 mg PO DAILY 30 days esomeprazole magnesium (Nexium) 40 mg PO DAILY fluticasone propionate 50 mcg/actuation (Flonase Allergy Relief) 1 spray intranasal Q12H folic acid 1 mg PO DAILY gabapentin 300 mg PO BID lamotrigine 150 mg PO DAILY 30 days lamotrigine 100 mg PO DAILY lithium carbonate 300 mg PO BID lithium carbonate 150 mg PO BEDTIME loratadine 10 mg PO DAILY mirabegron ER (Myrbetriq) 50 mg (2 x 25 mg) PO DAILY 90 days mirtazapine 15 mg PO BEDTIME nebulizers (AeroEclipse II Nebulizer) As directed simvastatin 20 mg PO BEDTIME solifenacin (Vesicare) 5 mg PO DAILY 30 days sumatriptan succinate 50 mg PO DAILY MRX1 PRN trazodone 50 mg PO BEDTIME PRN 30 days trazodone 50 mg PO BEDTIME PRN 30 days Do you need a note to return to daycare/school/sports/work: No HPI HPI COPD: Details: THIS 39 YEARS OLD FEMALE A LONGSTANDING CASE OF BRONCHIAL ASTHMA/COPD. COMES FOR FOLLOW-UP AFTER 4 MONTHS. SHE CLAIMS THAT SHE HAS BEEN FREE OF ANY ACUTE RESPIRATORY EVENTS. LUCKILY SHE DID NOT GO BACK TO SMOKING. HAS PUT ON SOME WEIGHT. HAS ONLY OCCASIONAL COUGH, AND SHORTNESS OF BREATH IF SHE WALKS AROUND ESPECIALLY UP HILL OR CLIMBING STAIRS. SHE IS BEING TREATED FOR BIPOLAR DISORDER AND IS IN CDI PROGRAM . [facility] Medical History MDD (major depressive disorder), recurrent severe, without psychosis Bipolar 2 disorder Pre-op evaluation Seasonal allergies Urinary frequency Incontinence HLD (hyperlipidemia) Clonidine overdose Polysubstance overdose Asthma Bronchitis Smoker Posttraumatic stress disorder Borderline personality disorder Bipolar disorder, unspecified B12 deficiency Anemia Migraines Cervical cancer COPD (chronic obstructive pulmonary disease) Depression Anxiety Surgical History History of esophagogastroduodenoscopy (EGD) History of bilateral tubal ligation History of total splenectomy Family History Father No problems noted. Mother No problems noted. Social History Household Members: Family Housing: Apartment Do you presently have visiting nurse or other home services: No Alcohol intake: never Comment: 1:1 sitter Patient Tobacco Use Status: Former Tobacco user Quit Date: 02/2023 Tobacco use type: Cigarette Cigarette Packs Per Day: 1.5 Cigarettes Per Day: 30.0 Years Smoked: 15 Quit February 2023 e-Cigarette/Vaping Use: Currently Using Second Hand Smoke Exposure: No Substance Use Type: Amphetamines and Sedatives service: No Current occupational status: disabled 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 Sexual orientation: Did not discuss Review of Systems Const All systems reviewed & are unremarkable except as noted in HPI and below Reports headache(s) (MIGRAINS ) ENT Reports headache(s) (MIGRAINS ) and Reports nasal congestion (MILD , INTERMITTENT .) Resp Reports cough (FREQUENT , DRY . ) Neuro Reports headache(s) (MIGRAINS ) Psych Reports anxiety and Reports depression Physical Exam Vital Signs: Last Vital Signs Pulse 90 03/26/24 10:19 BP 110/64 03/26/24 10:19 Pulse Ox 97 03/26/24 10:19 Oxygen Delivery Method Room Air 03/26/24 10:19 BMI result Body Mass Index 32.6 Const General: healthy appearing (OVERWEIGHT ,), comfortable, no acute distress, alert and awake Orientation/consciousness: patient oriented x3 HEENT Head: Yes normal to inspection General nose exam: No nasal polyps present and No nasal discharge present Face and sinus: Yes sinuses nontender Mouth: oropharynx abnormals (MILD ERYTHEMA OF THE PHARYNGEAL MUCOSA, NO EXUDATES ) Throat: Yes posterior oropharynx normal Eyes General: appearance normal, both eyes and all related structures Neck Neck: Yes normal visual inspection, Yes no lymphadenopathy, Yes trachea midline and Yes no JVD Thyroid: Thyroid normal Chest Chest palpation & inspection: normal inspection of the chest, normal palpation of entire chest wall and no tenderness Resp Effort & Inspection: normal respiratory effort and able to speak in complete sentences Auscultation: clear to auscultation bilaterally, no crackles and no wheezes Cardio Palpation: normal PMI Rate: regular rate Rhythm: regular rhythm Heart sounds: no gallops and no murmurs Peripheral pulses: Peripheral pulses 2+ throughout GI Palpation (GI): Soft to palpation, nontender, No hepatosplenomegaly present and no masses Auscultation: normal bowel sounds Back/Spine/Pelvis Thoracic/Lumbar Spine: thoracic and lumbar spine normal to inspection Skin General skin exam: no rashes or lesions noted Neuro General: patient oriented x3 and no focal motor deficits Cranial nerves: Yes CN's II-XII intact bilaterally Extrem General: Yes normal to inspection, Yes no clubbing, cyanosis or edema, Yes no calf tenderness and No venous stasis dermatitis Psych Appearance: grossly normal and well kempt Speech and movement: Normal speech and movement present Assessment & Plan Assessment & Plan (1) Asthma: Comment: SHE HAS HISTORY OF CHRONIC BRONCHIAL ASTHMA. PULMONARY FUNCTION TEST ON 07/18/2023 SHOWED MILD OBSTRUCTIVE AIRWAY DISORDER WHICH IS COMPLETELY REVERSED AFTER BRONCHODILATOR THERAPY. THE RESULTS ARE CONSISTENT WITH BRONCHIAL ASTHMA. Code(s): J45.909 - Unspecified asthma, uncomplicated Category: Medical Plan: CONTINUE PULMICORT FLEXHALER 180 MCG 1 INHALATION B.I.D. USE ALBUTEROL HFA 1 OR 2 PUFFS Q 6 HOURS ONLY P.R.N. Medications: Refilled budesonide 180 mcg/actuation (Pulmicort Flexhaler) 1 inh inhalation BID 1 ea 5RF ASTHMA 30 days albuterol sulfate 90 mcg/actuation 1 inh inhalation QID PRN 8.5 grams 3RF shortness of breath or wheezing J20.9 - Acute bronchitis, unspecified, J45.901 - Unspecified asthma with (acute) exacerbation, J45.909 - Unspecified asthma, uncomplicated, R06.2 - Wheezing Coding Level of Care Code Est Pt Level 3 (30335) Diagnoses Asthma J45.909
== END 2024-03-26 10:56 | disposition home or self-care (01) ==
PROVIDERS: PCP Student in an Organized Health Care Education/Training Program; Visit Provider Internal Medicine
DX: J45.909 Unspecified asthma, uncomplicated (principal)
CPT/HCPCS: 99213

== ENCOUNTER → 2024-03-26 10:06 | Outpatient (BNVA) | payer MEDICARE, MEDICAID, SELFPAY | PROVIDERS: PCP Student in an Organized Health Care Education/Training Program; Visit Provider Internal Medicine | DX: J45.909 Unspecified asthma, uncomplicated (principal) | CPT/HCPCS: 99212 ==

== ENCOUNTER → 2024-04-20 10:02 | Outpatient (BNVA) | payer MEDICARE, MEDICAID, SELFPAY | PROVIDERS: PCP Student in an Organized Health Care Education/Training Program; Visit Provider Physician Assistant Surgical ==

== ENCOUNTER 2024-06-11 10:45 | Emergency (ER) | payer MEDICARE, MEDICAID, SELFPAY ==
--- NOTE | ~2024-06-11 | CT_ITS ---
EXAMINATION: CT HEAD WITHOUT CONTRAST CLINICAL INFORMATION: Headache blurry vision COMPARISON: CT head from 05/02/2021 TECHNIQUE: Contiguous axial imaging was performed from the skull base to vertex without intravenous administration of contrast. This CT examination was performed using dose optimization techniques as appropriate, variously including the following: *Automated exposure control *Adjustment of mA and/or kV according to patient size (this includes techniques or standardized protocols for targeted exams where dose is matched to indication/reason for exam; i.e. extremities or head) *Use of iterative reconstruction technique DLP: 717 mGy-cm FINDINGS: There is no evidence of acute intracranial hemorrhage or territorial infarction. No abnormal mass effect or midline shift is seen. Bey to white matter differentiation is well preserved. No extra-axial fluid collections are identified. The ventricles are normal in size. There is no abnormal attenuation within the brain parenchyma. The osseous structures and soft tissues are normal. Near opacification of the right maxillary sinus. Mild mucoperiosteal thickening of the right sphenoid sinus. The mastoid air cells and visualized portions of the paranasal sinuses are well aerated. CT/CT head/brain wo IV con IMPRESSION: 1. No acute intracranial pathology. 2. Near opacification of the right maxillary sinus. Mild mucoperiosteal thickening of the right sphenoid sinus.
[2024-06-11 11:22] VITALS: BP 124/73; PULSE 84; RESP 17; TEMP 36.7; O2SAT 96; BMI 33.4
--- NOTE | 2024-06-11 11:25 | ED_ITS ---
HPI - General Adult General Chief complaint: Headache Stated complaint: headache, blurry vision History of Present Illness HPI narrative: left without completion of treatment by ED provider Related Data Home Medications ?Medication ?Instructions ?Recorded ?Confirmed dextroamphetamine-amphetamine ER 1 cap PO DAILY 02/07/23 03/26/24 30 mg 24hr capsule,extend release simvastatin 20 mg tablet 20 mg PO BEDTIME 02/07/23 03/26/24 Celebrex 50 mg PO DAILY 12/02/23 03/26/24 [id number] 250 See Rx Instructions .Route 12/02/23 03/26/24 mg-250 mg-65 mg tablet (Excedrin .COMPLEX PRN MIGRAINE/HEADACHE Migraine) calcium carbonate 600 mg-vitamin 1 tab PO DAILY 12/02/23 03/26/24 D3 10 mcg (400 unit) tablet (Calcium 600 + D(3)) clonazepam 1 mg tablet 1 mg PO TID 12/02/23 03/26/24 clonidine HCl 0.1 mg tablet 0.1 mg PO TID 12/02/23 03/26/24 docusate sodium 100 mg capsule 200 mg PO BEDTIME PRN Constipation 12/02/23 03/26/24 folic acid 1 mg tablet 1 mg PO DAILY 12/02/23 03/26/24 lithium carbonate 150 mg capsule 150 mg PO BEDTIME 12/02/23 03/26/24 lithium carbonate 300 mg capsule 300 mg PO BID 12/02/23 03/26/24 loratadine 10 mg tablet 10 mg PO DAILY 12/02/23 03/26/24 mirtazapine 7.5 mg tablet 15 mg PO BEDTIME 12/02/23 03/26/24 sumatriptan succinate 50 mg tablet 50 mg PO DAILY MRX1 PRN Migraine 12/02/23 03/26/24 Headache lamotrigine 100 mg tablet 100 mg PO DAILY 01/23/24 03/26/24 Previous Rx's ?Medication ?Instructions ?Recorded cariprazine 6 mg capsule (Vraylar) 6 mg PO DAILY 30 days #30 caps 03/04/21 cholecalciferol (vitamin D3) 25 25 mcg PO DAILY #30 tabs 03/04/21 mcg (1,000 unit) tablet fluticasone propionate 50 1 spray intranasal Q12H #16 grams 03/04/21 mcg/actuation nasal spray,suspension (Flonase Allergy Relief) gabapentin 300 mg capsule 300 mg PO BID #60 caps 03/04/21 trazodone 50 mg tablet 50 mg PO BEDTIME PRN Insomnia 30 03/04/21 days #30 tabs albuterol sulfate 0.63 mg/3 mL 0.63 mg (3 mL) inhalation QID PRN 10/06/21 solution for nebulization shortness of breath or wheezing #75 mL nebulizers (AeroEclipse II #1 ea 10/06/21 Nebulizer) escitalopram oxalate 20 mg tablet 20 mg PO DAILY 30 days #30 tabs 12/06/23 lamotrigine 150 mg tablet 150 mg PO DAILY 30 days #30 tabs 12/06/23 trazodone 50 mg tablet 50 mg PO BEDTIME PRN Insomnia 30 12/06/23 days #30 tabs solifenacin 5 mg tablet (Vesicare) 5 mg PO DAILY 30 days #30 tabs 01/23/24 mirabegron 25 mg tablet,extended 50 mg (2 x 25 mg) PO DAILY 90 days 01/25/24 release 24 hr (Myrbetriq) #180 tabs albuterol sulfate 90 mcg/actuation 1 inh inhalation QID PRN shortness 03/26/24 aerosol inhaler of breath or wheezing #8.5 grams budesonide 180 mcg/actuation 1 inh inhalation BID ASTHMA 30 03/26/24 breath activated powder inhaler days #1 ea (Pulmicort Flexhaler) esomeprazole magnesium 40 mg 40 mg PO DAILY #30 caps 05/22/24 capsule,delayed release Allergies Allergy/AdvReac Type Severity Reaction Status Date / Time No Known Allergies Allergy Verified 06/11/24 11:24 [facility] Past Medical History Medical History MDD (major depressive disorder), recurrent severe, without psychosis Bipolar 2 disorder Pre-op evaluation Seasonal allergies Urinary frequency Incontinence HLD (hyperlipidemia) Clonidine overdose Polysubstance overdose Asthma Bronchitis Smoker Posttraumatic stress disorder Borderline personality disorder Bipolar disorder, unspecified B12 deficiency Anemia Migraines Cervical cancer COPD (chronic obstructive pulmonary disease) Depression Anxiety Surgical History History of esophagogastroduodenoscopy (EGD) History of bilateral tubal ligation History of total splenectomy Family History Family History Father No problems noted. Mother No problems noted. Social History Social History Household Members: Family Housing: Apartment Do you presently have visiting nurse or other home services: No Alcohol intake: never Comment: 1:1 sitter Patient Tobacco Use Status: Former Tobacco user Tobacco use type: Cigarette Cigarette Packs Per Day: 1.5 Cigarettes Per Day: 30.0 Years Smoked: 15 Quit February 2023 e-Cigarette/Vaping Use: Currently Using Second Hand Smoke Exposure: No Substance Use Type: Amphetamines and Sedatives service: No Current occupational status: disabled 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 Sexual orientation: Did not discuss Physical Exam ED Vital Signs: Vital Signs - 24 hr 06/11/24 11:22 Temperature 98.1 F Pulse Rate 84 Respiratory Rate 17 Blood Pressure 124/73 Pulse Oximetry 96 Oxygen Delivery Method Room Air BMI result Body Mass Index 33.4 Course Course Course Narrative: RME: DOne by RASHEEDA Granda. 39 yold female with pmh of migraines presents to the ED for headache for 3 days and blurry vision this morning. patient states no relief with imitrex. patient states no recent trauma, fever, chills, or neck stiffness. patient states no stroke symptoms. NIH score 0. labs, head CT, and ekg ordered Medical Decision Making Lab Data 06/11/24 12:01 06/11/24 12:01 Labs: Lab Results 06/11/24 Range/Units 12:01 WBC 13.8 H (4.8-10.8) X10*3/uL RBC 4.43 (4.20-5.50) X10*6/uL Hgb 14.7 (12.0-16.0) g/dl Hct 41.9 (37.0-47.0) % MCV 94.6 (80.0-98.0) fL MCH 33.2 H (27.0-33.0) pg MCHC 35.1 H (31.0-35.0) g/dl RDW 13.1 (11.0-16.0) % Plt Count 483 H (160-400) X10*3/uL MPV 9.3 L (9.4-12.3) fL Immature Gran % (Auto) 0.7 H (0.0-0.4) % Neut % (Auto) 53.9 (45-73) % Lymph % (Auto) 32.3 (20-40) % [place] % (Auto) 7.5 (2-11) % Eos % (Auto) 4.6 H (0-4) % Baso % (Auto) 1.0 (0-2) % Lymph # (Auto) 4.5 (1.2-4.9) X10*3/uL [place] # (Auto) 1.0 (0.1-1.2) X10*3/uL Eos # (Auto) 0.6 H (0.0-0.4) X10*3/uL Baso # (Auto) 0.1 (0.0-0.2) X10*3/uL Abs Immat Gran (auto) 0.09 H (0.00-0.03) X10*3/uL Absolute Neuts (auto) 7.5 (2.0-8.3) x10*3/uL Absolute Nucleated RBC 0.000 (0.0-0.012) X10*3/uL Nucleated RBC % (auto) 0.0 (0.0-0.2) /100WBC APTT 31.7 (26.0-36.8) SEC Sodium 139 (135-145) mmol/L Potassium 4.8 (3.3-5.1) mmol/L Chloride 105 (96-108) mmol/L Carbon Dioxide 27 (22-29) mmol/L Anion Gap 12 (12-20) BUN 13 (9-16) mg/dL Creatinine 0.66 (0.5-1.4) mg/dL Estim Creat Clear Calc 117.4 Estimated GFR > 60 Random Glucose 93 (60-115) mg/dL Calcium 9.6 (8.4-10.2) mg/dL Total Bilirubin 0.2 (0.0-1.0) mg/dL AST 27 (5-31) U/L ALT 34 H (0-31) U/L Alkaline Phosphatase 79 (39-117) U/L Troponin I High Sens < 2.7 (<3.5-17.0) ng/L Total Protein 7.3 (6.5-8.0) g/dL Albumin 4.2 (3.5-5.0) g/dL Influenza Type A (PCR) NEGATIVE (Negative) Influenza Type B (PCR) NEGATIVE (Negative) RSV RNA Qual (PCR) NEGATIVE (Negative) SARS-CoV-2 RNA (RT-PCR) NEGATIVE (Negative) Discharge Plan Discharge Clinical Impression: Headache Patient Disposition: Left W/O Completing Treatment Prescriptions: No Action Myrbetriq 25 mg tablet extended release 24 hr 50 mg PO DAILY 90 Days Qty: 180 1RF esomeprazole magnesium 40 mg capsule,delayed release(DR/EC) 40 mg PO DAILY Qty: 30 0RF cholecalciferol (vitamin D3) 25 mcg (1,000 unit) Tablet 25 mcg PO DAILY Qty: 30 0RF gabapentin 300 mg capsule 300 mg PO BID Qty: 60 0RF fluticasone propionate [Flonase Allergy Relief] 50 mcg/actuation spray,suspension 1 spray intranasal Q12H Qty: 16 0RF Rx Instructions: administer into each nostril trazodone 50 mg Tablet 50 mg PO BEDTIME PRN (Reason: Insomnia) 30 Days Qty: 30 0RF Vraylar 6 mg capsule 6 mg PO DAILY 30 Days Qty: 30 0RF (DME) nebulizers [AeroEclipse II Nebulizer[place] [facility] [place] Instructions .[place]TE .MEDSUPPLY Qty: 1 0RF Rx Instructions: As directed albuterol sulfate 0.63 mg/3 mL solution for nebulization 0.63 mg inhalation QID PRN (Reason: shortness of breath or wheezing) Qty: 75 0RF clonidine HCl 0.1 mg tablet 0.1 mg PO TID folic acid 1 mg tablet 1 mg PO DAILY loratadine 10 mg tablet 10 mg PO DAILY lithium carbonate 150 mg Capsule 150 mg PO BEDTIME Excedrin Migraine 250-250-65 mg Tablet See Rx Instructions .ROUTE .COMPLEX PRN (Reason: MIGRAINE/HEADACHE) Rx Instructions: Q6HR PRN Celebrex 50 mg PO DAILY clonazepam 1 mg tablet 1 mg PO TID sumatriptan succinate 50 mg tablet 50 mg PO DAILY MRX1 PRN (Reason: Migraine Headache) lithium carbonate 300 mg capsule 300 mg PO BID docusate sodium 100 mg capsule 200 mg PO BEDTIME PRN (Reason: Constipation) mirtazapine 7.5 mg tablet 15 mg PO BEDTIME calcium carbonate-vitamin D3 [Calcium 600 + D(3)] 600 mg-10 mcg (400 unit) Tablet 1 tab PO DAILY trazodone 50 mg Tablet 50 mg PO BEDTIME PRN (Reason: Insomnia) 30 Days Qty: 30 0RF lamotrigine 150 mg tablet 150 mg PO DAILY 30 Days Qty: 30 0RF escitalopram oxalate 20 mg tablet 20 mg PO DAILY 30 Days Qty: 30 0RF dextroamphetamine-amphetamine 30 mg capsule,extended release 24hr 1 cap PO DAILY simvastatin 20 mg tablet 20 mg PO BEDTIME Pulmicort Flexhaler 180 mcg/actuation aerosol powdr breath activated 1 inh inhalation BID 30 Days Qty: 1 5RF albuterol sulfate 90 mcg/actuation HFA aerosol inhaler 1 inh inhalation QID PRN (Reason: shortness of breath or wheezing) Qty: 8.5 3RF lamotrigine 100 mg tablet 100 mg PO DAILY solifenacin [Vesicare] 5 mg tablet 5 mg PO DAILY 30 Days Qty: 30 3RF Discharge Date/Time: 06/11/24 22:11
--- NOTE | 2024-06-11 11:26 | ECG_ITS ---
Test Reason : headache, blurry visision Blood Pressure : / mmHG Vent. Rate : 085 BPM Atrial Rate : 085 BPM P-R Int : 146 ms QRS Dur : 086 ms QT Int : 292 ms P-R-T Axes : 033 003 042 degrees QTc Int : 347 ms Normal sinus rhythm Nonspecific T wave abnormality Abnormal ECG When compared with ECG of 02-DEC-2023 09:15, Vent. rate has increased BY 33 BPM Nonspecific T wave abnormality, worse in Anterolateral leads QT has shortened Referred By: Joey Granda Electronically Signed By:CARLOS A PARSONS MD
[2024-06-11 12:06] LABS: MANUAL DIFF FLAG NO
[2024-06-11 12:09] LABS: Basophils Absolute Auto 0.1 X10*3/uL (0.0-0.2); Eosinophils Absolute Auto 0.6 X10*3/uL (0.0-0.4); Eosinophils Percent Auto 4.6 % (0-4); Hematocrit 41.9 % (37.0-47.0); Hemoglobin 14.7 g/dl (12.0-16.0); Imm Gran Abs Auto 0.09 X10*3/uL (0.00-0.03); Imm Gran Pct Auto 0.7 % (0.0-0.4); Lymphocytes Absolute Auto 4.5 X10*3/uL (1.2-4.9); Lymphocytes Percent Auto 32.3 % (20-40); Mean Corpuscular HGB Conc 35.1 g/dl (31.0-35.0); Mean Corpuscular Hemoglobin 33.2 pg (27.0-33.0); Mean Corpuscular Volume 94.6 fL (80.0-98.0); Mean Platelet Volume 9.3 fL (9.4-12.3); Monocytes Percent Auto 7.5 % (2-11); Neutrophils Absolute Auto 7.5 x10*3/uL (2.0-8.3); Neutrophils Percent Auto 53.9 % (45-73); Platelet Count 483 X10*3/uL (160-400); Red Blood Count 4.43 X10*6/uL (4.20-5.50); Red Cell Distribution Width 13.1 % (11.0-16.0); White Blood Count 13.8 X10*3/uL (4.8-10.8)
[2024-06-11 12:15] LABS: Partial Thromboplastin Time 31.7 SEC (26.0-36.8)
[2024-06-11 12:47] LABS: Alanine Aminotransferase 34 U/L (0-31); Albumin Level 4.2 g/dL (3.5-5.0); Alkaline Phosphatase 79 U/L (39-117); Anion Gap 12 (12-20); Aspartate Amino Transferase 27 U/L (5-31); Bilirubin Total 0.2 mg/dL (0.0-1.0); Blood Urea Nitrogen 13 mg/dL (9-16); Calcium 9.6 mg/dL (8.4-10.2); Carbon Dioxide 27 mmol/L (22-29); Chloride 105 mmol/L (96-108); Creatinine Clr Calc Pharmacy 117.4; Estimated Glomerular Filt Rate > 60; Glucose Random 93 mg/dL (60-115); Potassium 4.8 mmol/L (3.3-5.1); Sodium 139 mmol/L (135-145); Total Protein 7.3 g/dL (6.5-8.0)
[2024-06-11 12:48] LABS: Influenza A PCR NEGATIVE (Negative); Influenza B PCR NEGATIVE (Negative); Resp Syncy Virus RNA Qual PCR NEGATIVE (Negative); SARS COV2 PCR INHOUSE NEGATIVE (Negative)
[2024-06-11 12:59] LABS: Troponin-I High Sensitivity < 2.7 ng/L (<3.5-17.0)
== END 2024-06-11 22:11 | disposition left against medical advice (07) ==
PROVIDERS: Physician Assistant; Emergency Provider Emergency Medicine; PCP Student in an Organized Health Care Education/Training Program
DX: R51.9 Headache, unspecified (principal); H53.8 Other visual disturbances; R10.9 Unspecified abdominal pain; R94.31 Abnormal electrocardiogram [ECG] [EKG]; Z79.899 Other long term (current) drug therapy; Z87.891 Personal history of nicotine dependence; Z03.818 Encounter for observation for suspected exposure to other biological agents ruled out
CPT/HCPCS: 0241U; 36415; 70450; 80053; 84484; 85025; 85730; 93005; 99283; 99284

== ENCOUNTER → 2024-06-11 11:26 | Outpatient (BNV) | payer MEDICARE, MEDICAID, SELFPAY | PROVIDERS: PCP Student in an Organized Health Care Education/Training Program; Visit Provider Internal Medicine Cardiovascular Disease | DX: R51.9 Headache, unspecified (principal); R94.31 Abnormal electrocardiogram [ECG] [EKG] | CPT/HCPCS: 93010 ==

== ENCOUNTER → 2024-06-12 10:57 | Outpatient (BNVA) | payer MEDICARE, MEDICAID, SELFPAY | PROVIDERS: PCP Student in an Organized Health Care Education/Training Program; Visit Provider Physician Assistant Surgical ==

== ENCOUNTER 2024-08-29 12:27 | Outpatient (REF) | payer MEDICARE, MEDICAID, SELFPAY ==
--- NOTE | ~2024-08-29 | XR_ITS ---
EXAMINATION: XR LUMBOSACRAL SPINE CLINICAL INFORMATION: Pain COMPARISON: Lumbar spine x-ray on 10/12/2022 TECHNIQUE: Three views of the lumbosacral spine. FINDINGS: The vertebral bodies and posterior elements are normal. The disc spaces are preserved and the vertebral alignment is normal. The paraspinal soft tissues are normal. XR/XR lumbar spine 2-3V IMPRESSION: Unremarkable examination. Electronically signed by: Tabby Nath MD 09/01/2024 12:07 PM EDT
== END 2024-08-29 12:28 | disposition home or self-care (01) ==
LOC: HO.XRAY 12:27
PROVIDERS: PCP Student in an Organized Health Care Education/Training Program; Visit Provider Student in an Organized Health Care Education/Training Program
DX: M54.50 Low back pain, unspecified (principal); G89.29 Other chronic pain
CPT/HCPCS: 72100

== ENCOUNTER 2024-09-05 11:40 | Outpatient (AMB) | payer MEDICARE, MEDICAID, SELFPAY ==
--- NOTE | 2024-09-05 11:44 | A.OFFVIS_ITS ---
Intake Visit Reasons: follow up/PVR Intake Note: Patient presents for follow up incontinence/frequency/uti Urology Medications: myrbetriq, vesicare Blood Thinner: none PVR: 0ml's Trauma Coordinator Required: No Accompanied by: Self / Same As Patient Allergies No Known Allergies Allergy (Verified 09/05/24 12:15) Medication List - Last Reconciled 09/05/24 by LOBO Mckay- albuterol sulfate 0.63 mg (3 mL) inhalation QID PRN albuterol sulfate 90 mcg/actuation 1 inh inhalation QID PRN qmtffme-hzqggcxmnznuw-ynirwshs 250-250-65 mg (Excedrin Migraine) Q6HR PRN budesonide 180 mcg/actuation (Pulmicort Flexhaler) 1 inh inhalation BID 30 days calcium carbonate-vitamin D3 600 mg-10 mcg (400 unit) (Calcium 600 + D(3)) 1 tab PO DAILY cariprazine (Vraylar) 6 mg PO DAILY 30 days [Celebrex 50 mg PO DAILY] cholecalciferol (vitamin D3) 25 mcg PO DAILY clonazepam 1 mg PO TID clonidine HCl 0.1 mg PO TID dextroamphetamine-amphetamine 30 mg ER 1 cap PO DAILY docusate sodium 200 mg PO BEDTIME PRN escitalopram oxalate 20 mg PO DAILY 30 days esomeprazole magnesium 40 mg PO DAILY fluticasone propionate 50 mcg/actuation (Flonase Allergy Relief) 1 spray intranasal Q12H folic acid 1 mg PO DAILY gabapentin 300 mg PO BID lamotrigine 150 mg PO DAILY 30 days lamotrigine 100 mg PO DAILY lithium carbonate 300 mg PO BID lithium carbonate 150 mg PO BEDTIME loratadine 10 mg PO DAILY mirabegron ER (Myrbetriq) 50 mg (2 x 25 mg) PO DAILY 90 days mirtazapine 15 mg PO BEDTIME nebulizers (AeroEclipse II Nebulizer) As directed simvastatin 20 mg PO BEDTIME solifenacin (Vesicare) 5 mg PO DAILY 30 days sumatriptan succinate 50 mg PO DAILY MRX1 PRN trazodone 50 mg PO BEDTIME PRN 30 days trazodone 50 mg PO BEDTIME PRN 30 days HPI Comments Details: Tammy is a pleasant 39year old female who is a patient of Dr. Pina. She has a PMH of anxiety, depression, PTSD, bipolar, GERD, headaches, and insomnia. She presents to the office today for follow-up of her overactive bladder and recurrent urinary tract infections. In discussion with the patient today she reports to be doing and feeling well. She reports no bothersome urinary issues or concerns since her last office visit here approximately 6 months ago. She reports compliance with Myrbetriq and VESIcare as prescribed. In office urinalysis results reviewed with the patient today. PVR 0 mL. She denies hematuria, dysuria, foul smelling urine, changes to urinary stream, flank pain, fever, and or chills. She denies any UTI like symptoms. Previous workup has included a retroperitoneal ultrasound 01/27 noting a few scattered echogenic foci in both kidneys. No echogenic stones or hydronephrosis. Small post void residual bladder volume. Normal bilateral ureteral jets seen. She otherwise denies any other issues or concerns at this time. [facility] Medical History MDD (major depressive disorder), recurrent severe, without psychosis Bipolar 2 disorder Pre-op evaluation Seasonal allergies Urinary frequency Incontinence HLD (hyperlipidemia) Clonidine overdose Polysubstance overdose Asthma Bronchitis Smoker Posttraumatic stress disorder Borderline personality disorder Bipolar disorder, unspecified B12 deficiency Anemia Migraines Cervical cancer COPD (chronic obstructive pulmonary disease) Depression Anxiety Surgical History History of esophagogastroduodenoscopy (EGD) History of bilateral tubal ligation History of total splenectomy Family History Father No problems noted. Mother No problems noted. Social History Household Members: Family Housing: Apartment Do you presently have visiting nurse or other home services: No Alcohol intake: never Comment: 1:1 sitter Patient Tobacco Use Status: Former Tobacco user Tobacco use type: Cigarette Cigarette Packs Per Day: 1.5 Cigarettes Per Day: 30.0 Years Smoked: 15 Quit February 2023 e-Cigarette/Vaping Use: Currently Using Second Hand Smoke Exposure: No Substance Use Type: Amphetamines and Sedatives service: No Current occupational status: disabled 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 Sexual orientation: Did not discuss Review of Systems Const Reports as per HPI Eyes Reports no additional complaints ENT Reports no additional complaints Card Reports no additional complaints Resp Reports no additional complaints GI Reports no additional complaints Reports as per HPI Musc Details: Reports as per HPI Psych Reports as per HPI Physical Exam Const General: cooperative, healthy appearing, comfortable, no acute distress, well developed, alert and awake Nutritional Appearance: overweight Orientation/consciousness: patient oriented x3 Limitations: no limitations HEENT Head: Yes normal to inspection Ears: hearing grossly normal bilaterally Eyes General: appearance normal, both eyes and all related structures Neck Neck: Yes normal visual inspection and Yes trachea midline Chest Chest palpation & inspection: normal inspection of the chest Cardio Rate: regular rate GI Inspection: Yes normal to inspection General: Yes no CVA tenderness Back/Spine/Pelvis Back: no CVA tenderness Neuro General: patient oriented x3 Extrem General: Yes normal to inspection Psych Mental Status: mental status grossly normal Speech and movement: Normal speech and movement present and Clear speech present Affect: Other affect and mood findings present (flat affect ) Attitude: cooperative Insight: Fair insight present (Psych) Judgement: Fair judgement present (Psych) Office Procedures Post Void Residual Post Residual Void Post Void Residual (PVR): 0 [id number] Void Residual by ultrasound Results AMB Urinalysis, Automated UA Leukoctes 15 Rosalino/uL Last Edit by [employer] on 09/05/24 12:01 UA Nitrite Last Edit by [employer] on 09/05/24 12:01 UA Urobilinogen 0.2 mg/dL Last Edit by [employer] on 09/05/24 12:01 UA Protein 15 mg/dL Last Edit by [employer] on 09/05/24 12:01 UA pH 6.0 Last Edit by [employer] on 09/05/24 12:01 UA Blood 0 Guillermo/uL Last Edit by [employer] on 09/05/24 12:01 UA Specific Brule 1.020 Last Edit by [employer] on 09/05/24 12:01 UA Ketone Last Edit by [employer] on 09/05/24 12:01 UA Bilirubin 0 mg/dL Last Edit by [employer] on 09/05/24 12:01 UA Glucose 0 mg/dL Last Edit by [employer] on 09/05/24 12:01 Results Reviewed Results Reviewed: Laboratory Last Values Urine pH (Auto) 6.0 09/05/24 12:00 Specific Brule (Auto) 1.020 09/05/24 12:00 Urine Protein (Auto) 15 mg/dL 09/05/24 12:00 Glucose (UA)(Auto) 0 mg/dL 09/05/24 12:00 Urine Blood (Auto) 0 Guillermo/uL 09/05/24 12:00 Urine Bilirubin (Auto) 0 mg/dL 09/05/24 12:00 Urine Urobilinogen (Auto) 0.2 mg/dL 09/05/24 12:00 Leukocyte Esterase (Auto) 15 Rosalino/uL 09/05/24 12:00 Assessment & Plan Assessment & Plan (1) Urinary frequency: Code(s): R35.0 - Frequency of micturition Category: Medical (2) Incontinence: Code(s): R32 - Unspecified urinary incontinence Category: Medical Plan In office urinalysis results reviewed with the patient today; as noted above. PVR 0 mL. Patient currently denies any bothersome urinary issues or concerns. She reports be happy with current voiding parameters on Myrbetriq and VESIcare; will continue; refill provided. Discussed UTI prevention with D mannose supplement, vitamin-C, increasing fluid intake, behavioral therapy with timed voiding, perineal hygiene and postcoital voiding, and management of constipation with stool softeners and increased fiber intake. Discussed bladder triggers/irritants. Discussed possible near future in office cystoscopy for further assessment evaluation if symptoms arise Follow-up in 6 months with PVR; or sooner with any issues, concerns, and or questions. Orders: Orders AMB Post Void Residual by ultrasound Today N39.0 - Urinary tract infection, site not specified AMB Urinalysis Automated Today Z13.9 - Encounter for screening, unspecified Medications: Changed From solifenacin (Vesicare) 5 mg PO DAILY 30 days 30 tabs 2RF To solifenacin (Vesicare) 5 mg PO DAILY 90 days 90 tabs 3RF Refilled mirabegron ER (Myrbetriq) 50 mg (2 x 25 mg) PO DAILY 90 days 180 tabs 2RF N30.10 - Interstitial cystitis (chronic) without hematuria, N32.81 - Overactive bladder, R35.1 - Nocturia, R39.15 - Urgency of urination Patient Instructions: The patient had an opportunity to ask questions regarding the treatment plan. All questions were answered. Physical exam, labs, and imaging were discussed and reviewed in detail. As well as risks, benefits, and discussion of treatment choices. No major barriers to understanding were identified. The patient expressed understanding and agreement with the above treatment plan. The patient was made aware they should contact our office by phone for worsening of their current condition, the appearance of new symptoms, or with any questions or concerns. Compliance is encouraged with any medications and follow up testing that is ordered. It is a privilege to be allowed the opportunity to participate in? your urological care.? Again, if you have any questions or concerns If you have any questions or concerns please do not hesitate to contact me. The office is [phone]. This note is constructed using voice recognition software. While every effort has been made to ensure accuracy glazier metal furniture errors may have been included. Yours sincerely, LOBO Mckay-MAXIMILIANO Coding Level of Care Code Est Pt Level 3 (73905) Complex EM visit Add On G2211 Diagnoses Urinary frequency R35.0 Incontinence R32 CPT Codes Post Residual Void - PVR CPT Code: 16308-Anbm Void Residual by ultrasound ([id number])
== END 2024-09-05 12:12 | disposition home or self-care (01) ==
LOC: HO.HUSH 11:41
PROVIDERS: PCP Student in an Organized Health Care Education/Training Program; Visit Provider Nurse Practitioner Family
DX: R35.0 Frequency of micturition (principal); R32 Unspecified urinary incontinence; Z13.9 Encounter for screening, unspecified
CPT/HCPCS: 99213; G2211

== ENCOUNTER → 2024-09-05 11:40 | Outpatient (BNVA) | payer MEDICARE, MEDICAID, SELFPAY | PROVIDERS: PCP Student in an Organized Health Care Education/Training Program; Visit Provider Nurse Practitioner Family | DX: R35.0 Frequency of micturition (principal); R32 Unspecified urinary incontinence; N39.0 Urinary tract infection, site not specified | CPT/HCPCS: 51798; 81003; 99212 ==

== ENCOUNTER 2024-09-07 10:22 | Inpatient (IN) | payer MEDICARE, MEDICAID, SELFPAY ==
[2024-09-07] VITALS (16 sets, daily range): BP systolic 88–126; BP diastolic 34–84; PULSE 55–85; RESP 13–21; TEMP 36.7–37; O2SAT 92–99; BMI 33.7; BMI 35.1
--- NOTE | 2024-09-07 | ECG_ITS ---
Test Reason : od Blood Pressure : / mmHG Vent. Rate : 076 BPM Atrial Rate : 076 BPM P-R Int : 152 ms QRS Dur : 086 ms QT Int : 382 ms P-R-T Axes : 036 004 038 degrees QTc Int : 429 ms Normal sinus rhythm Normal ECG When compared with ECG of 11-JUN-2024 11:49, No significant changes seen Referred By: Generic ED Physician Electronically Signed By:SARAH GARCIA
--- NOTE | 2024-09-07 10:30 | MHC.CARE ---
Agata Frye from [facility] called to report that she would be arriving to the ED with Pt who will be on a Section 12a. Pt is coming with Agata as PD and EMS reportedly escalate Pt. Pt reportedly was endorsing SI and stated that she intentionally overdosed on medications last night and this morning. Agata did report that Pt appeared as if she overdosed. Pt is prescribed Clonidine and Klonopin per Agata and stock piles them.
--- NOTE | 2024-09-07 10:52 | PC.NURSE ---
Pt comes from home for overdose on medications. Unable to tell this RN how many pills she took, states she took clonidine/klonopin/gabapentin. Arousable to verbal stimuli, not answering questions d/t dozing off. Respirations even and unlabored, no increased wob/sob noted, s1 and s2 heard, NSR on diver assistant HR- 60s. 1:1 sitter at bedside, CHD worker at bedside with patient. Call de dios within reach, all needs met at this time.
[2024-09-07 11:14] LABS: MANUAL DIFF FLAG NO
--- NOTE | 2024-09-07 11:15 | ED_ITS ---
HPI - General Adult General Chief complaint: Overdose Stated complaint: OD ? Medical Clearance Time Seen by Provider: 09/07/24 11:08 Source: patient and other ([facility] employee) Mode of arrival: ambulatory Limitations: no limitations History of Present Illness ED Provider: Frances Venegas PA-C HPI narrative: Patient is a 39 year old assigned female at with a history of asthma, HLD, and MDD (with previous attempts), presenting to the emergency department today after a suicide attempt via overdose. Patient states that she attempted to hurt herself after a bad morning by taking many gabapentin, clonidine, and klonopin. Patient denies any dizziness, lightheadedness, abdominal pain, nausea, vomiting, fever, chills, blurry vision, double vision, loss of vision, chest pain, difficulty breathing, shortness of breath, back pain, night sweats, pain with urination, increased urinary frequency, increased urinary urgency, blood in her urine or stool, syncope or a near syncopal episode, recent trauma or falls, bowel incontinence, bladder incontinence, or any other complaints at this time. Relieving factors: none Exacerbating factors: none Associated symptoms: denies other symptoms Treatments prior to arrival: none Related Data Home Medications ?Medication ?Instructions ?Recorded ?Confirmed cariprazine 6 mg capsule (Vraylar) 6 mg PO DAILY 09/07/24 cholecalciferol (vitamin D3) 25 25 mcg PO DAILY 09/07/24 mcg (1,000 unit) tablet clonazepam 1 mg tablet 1 mg PO TID PRN Anxiety 09/07/24 clonidine HCl 0.1 mg tablet 0.1 mg PO TID 09/07/24 cyclobenzaprine 5 mg tablet 5 mg PO BEDTIME PRN Muscle Spasm 09/07/24 dextroamphetamine-amphetamine ER 1 cap PO DAILY 09/07/24 30 mg 24hr capsule,extend release escitalopram oxalate 20 mg tablet 20 mg PO DAILY 09/07/24 esomeprazole magnesium 40 mg 40 mg PO DAILY 09/07/24 capsule,delayed release gabapentin 300 mg capsule PO 09/07/24 ibuprofen 800 mg tablet 800 mg PO TID 09/07/24 lamotrigine 100 mg tablet PO 09/07/24 lithium carbonate 150 mg capsule 150 mg PO DAILY 09/07/24 lithium carbonate 300 mg capsule 300 mg PO BID 09/07/24 mirabegron 50 mg tablet,extended 50 mg PO DAILY 09/07/24 release 24 hr (Myrbetriq) mirtazapine 15 mg tablet 15 mg PO BEDTIME 09/07/24 naproxen 250 mg tablet 250 mg PO BID 09/07/24 simvastatin 40 mg tablet 40 mg PO BEDTIME 09/07/24 solifenacin 5 mg tablet 5 mg PO DAILY 09/07/24 trazodone 50 mg tablet 50 mg PO BEDTIME 09/07/24 Allergies Allergy/AdvReac Type Severity Reaction Status Date / Time No Known Allergies Allergy Verified 09/07/24 10:31 Review of Systems 2 Constitutional: Constitutional: Reports no additional constitutional complaints, Denies chills, Denies fever(s) and Denies night sweats Eyes: Eyes: Reports no additional eye complaints, Denies blurry vision, Denies change in vision, Denies diplopia, Denies eye discharge, Denies loss of vision and Denies eye pain ENT: Denies dizziness Cardiovascular: Cardiovascular: Reports no additional cardiovascular complaints, Denies chest pain, Denies lightheadedness, Denies Loss of Consciousness and Denies dyspnea Respiratory: Respiratory: Reports no additional respiratory complaints and Denies dyspnea Gastrointestinal: Gastrointestinal: Reports no additional gastrointestinal complaints, Denies abdominal pain, Denies melena, Denies hematochezia, Denies change in bowel habits and Denies change in stool character Genitourinary: Genitourinary: Denies hematuria, Denies urinary frequency, Denies dysuria, Denies urinary incontinence, Denies urinary hesitancy and Denies urinary urgency Musculoskeletal: Musculoskeletal: Reports no additional musculoskeletal complaints, Denies numbness and Denies tingling Neurologic: Denies dizziness, Denies loss of vision, Denies numbness and Denies tingling Psychiatric: Psychiatric: Reports suicidal ideation Endocrine: Endocrine: Reports no additional endocrine complaints Hematologic/Lymphatic: Hematologic/Lymphatic: Reports no additional hematologic/lymphatic complaints Allergic/Immunologic: Allergic/Immunologic: Reports no additional allergic/immunologic complaints PMFSH Past Medical History Attestation statement: The following information was validated with the patient. Source: old records reviewed and nursing notes reviewed Medical History MDD (major depressive disorder), recurrent severe, without psychosis Bipolar 2 disorder Pre-op evaluation Seasonal allergies Urinary frequency Incontinence HLD (hyperlipidemia) Clonidine overdose Polysubstance overdose Asthma Bronchitis Smoker Posttraumatic stress disorder Borderline personality disorder Bipolar disorder, unspecified B12 deficiency Anemia Migraines Cervical cancer COPD (chronic obstructive pulmonary disease) Depression Anxiety Surgical History History of esophagogastroduodenoscopy (EGD) History of bilateral tubal ligation History of total splenectomy Family History Family History Father No problems noted. Mother No problems noted. Social History Social History Household Members: Family Housing: Apartment Do you presently have visiting nurse or other home services: No Unable to assess alcohol history related to: Unable to respond Alcohol intake: never Comment: 1:1 sitter Patient Tobacco Use Status: Former Tobacco user Tobacco use type: Cigarette Cigarette Packs Per Day: 1.5 Cigarettes Per Day: 30.0 Years Smoked: 15 Quit February 2023 e-Cigarette/Vaping Use: Currently Using Second Hand Smoke Exposure: No Use of substances other than those prescribed or required for medical reasons: Unable to respond Substance Use Type: Amphetamines and Sedatives Advance Directives: No Advance Directives Information Provided: Yes Do you have a plan to hurt others: No Plan service: No Current occupational status: disabled 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 Sexual orientation: Did not discuss Physical Exam ED Vital Signs: Vital Signs - 24 hr 09/07/24 10:27 09/07/24 11:11 09/07/24 12:12 Temperature 98.6 F 98.0 F Pulse Rate 85 70 70 Respiratory Rate 15 21 H 20 Blood Pressure 97/48 L 113/76 88/56 L Pulse Oximetry 97 95 92 Oxygen Delivery Method Room Air Room Air Room Air Oxygen Flow Rate 09/07/24 12:32 09/07/24 12:35 09/07/24 12:46 Temperature Pulse Rate 69 66 Respiratory Rate 19 18 Blood Pressure 97/59 L 103/59 L 97/34 L Pulse Oximetry 97 98 Oxygen Delivery Method Room Air Oxygen Flow Rate 09/07/24 13:29 09/07/24 14:31 09/07/24 15:34 Temperature Pulse Rate 62 59 64 Respiratory Rate 18 16 16 Blood Pressure 108/74 122/65 107/64 Pulse Oximetry 99 99 99 Oxygen Delivery Method Room Air Nasal Cannula Nasal Cannula Oxygen Flow Rate 2 2 09/07/24 16:18 Temperature Pulse Rate 59 Respiratory Rate 16 Blood Pressure 95/57 L Pulse Oximetry 98 Oxygen Delivery Method Room Air Oxygen Flow Rate BMI result Body Mass Index 33.7 Const General: cooperative, no acute distress, alert and awake Nutritional Appearance: well nourished Orientation/consciousness: patient oriented x3 Limitations: no limitations HENMT Head: Yes normal to inspection and Yes atraumatic Ears: hearing grossly normal bilaterally and external ears normal General nose exam: Normal external nose present, no nasal discharge noted and no epistaxis Face and sinus: Yes normal facial exam, No abrasion and No laceration Mouth: Normal oral and palatal mucosa present, no drooling and no muffled voice Eyes General: appearance normal, both eyes and all related structures Periorbital: periorbital findings normal Eyelids: Yes eyelids normal Conjunctivae: conjunctivae normal Pupils: Equal, round and reactive pupils present EOM: EOMs intact bilaterally Neck Neck: Yes normal visual inspection, Yes full ROM and Yes no lymphadenopathy Chest Chest palpation & inspection: normal inspection of the chest Resp Effort & Inspection: normal respiratory effort and able to speak in complete sentences GI Inspection: Yes normal to inspection Neuro General: patient oriented x3 and moves all extremities Cranial nerves: Yes Equal, round and reactive pupils present Cognition (Neuro): normal cognition Extrem General: Yes normal to inspection, Yes full ROM and Yes capillary refill normal Psych Appearance: grossly normal Mental Status: mental status grossly normal Attitude: Guarded attititude/behavior present Thought content: Suicidality present Medications Administered Discontinued Medications Generic Name Dose Route Start Last Admin Trade Name Freq PRN Reason Stop Dose Admin Sodium Chloride 1,000 mls @ 999 mls/hr 09/07/24 12:15 09/07/24 13:37 Ns IV 09/07/24 13:15 Infused .Q1H1M JOSE Infusion Sodium Chloride 1,000 mls @ 999 mls/hr 09/07/24 13:45 09/07/24 15:36 Ns IV 09/07/24 14:45 Infused .Q1H1M JOSE Infusion Sodium Chloride 1,000 mls @ 999 mls/hr 09/07/24 14:15 09/07/24 16:04 Ns IV 09/07/24 15:15 Infused .Q1H1M JOSE Infusion Naloxone HCl 10 mg 09/07/24 12:32 09/07/24 12:34 Naloxone Hcl 2 Mg/2 Ml Syringe IVPUSH 09/07/24 12:33 10 mg ONCE ONE Administration Medical Decision Making Medical Decision Making [facility] Narrative: Patient is a 39 year old assigned female at with a history of asthma, HLD, and MDD (with previous attempts), presenting to the emergency department today after a suicide attempt via overdose. Patient's physical exam initially was unremarkable. Patient's blood work showed a mildly elevated WBC count of 14 but were otherwise unremarkable. Patient's EKG was unremarkable. The nurse reached out to poison control who recommended at least 6 hours of monitoring and symptomatic management. I explained my physical exam findings as well as all test results to the patient. I answered all questions asked by the patient. While the patient was being observed, she became much more somnolent and began to have labile blood pressures. Patient was given a total of 10mg of IV Narcan in an attempt to reverse the clonodine she had ingested and a 1 liter NS bolus was given. Patient remained somnolent but maintaining her airway and her blood pressures improved. I contacted the developmental training counselor, Dr. Reynolds, who recommended ICU admission for continued monitoring. Differential Diagnosis Differential Diagnoses: The differential diagnosis associated with the presentation includes Polysubstance overdose Hypotension Somnolence Admission/Observation Consideration of admission/observation: Escalation of care including admission/observation considered Patient admitted to the ICU Consult Healthcare Provider Management of the patient was discussed with: Supervisor [employer] (spoke with the developmental training counselor as noted in the MDM Rationale portion of this note.) Lab Data [facility] Lab Attestation statement: I reviewed the patient's lab results. My interpretation of these results are in the MDM Rationale portion of this note. 09/07/24 11:09 09/07/24 11:09 Labs: Lab Results 09/07/24 09/07/24 Range/Units 11:09 16:15 WBC 14.0 H (4.8-10.8) X10*3/uL RBC 4.16 L (4.20-5.50) X10*6/uL Hgb 13.5 (12.0-16.0) g/dl Hct 38.6 (37.0-47.0) % MCV 92.8 (80.0-98.0) fL MCH 32.5 (27.0-33.0) pg MCHC 35.0 (31.0-35.0) g/dl RDW 13.5 (11.0-16.0) % Plt Count 444 H (160-400) X10*3/uL MPV 9.5 (9.4-12.3) fL Immature Gran % (Auto) 0.6 H (0.0-0.4) % Neut % (Auto) 55.3 (45-73) % Lymph % (Auto) 32.3 (20-40) % [place] % (Auto) 6.7 (2-11) % Eos % (Auto) 4.3 H (0-4) % Baso % (Auto) 0.8 (0-2) % Lymph # (Auto) 4.5 (1.2-4.9) X10*3/uL [place] # (Auto) 0.9 (0.1-1.2) X10*3/uL Eos # (Auto) 0.6 H (0.0-0.4) X10*3/uL Baso # (Auto) 0.1 (0.0-0.2) X10*3/uL Abs Immat Gran (auto) 0.09 H (0.00-0.03) X10*3/uL Absolute Neuts (auto) 7.8 (2.0-8.3) x10*3/uL Absolute Nucleated RBC 0.000 (0.0-0.012) X10*3/uL Nucleated RBC % (auto) 0.0 (0.0-0.2) /100WBC Sodium 136 (135-145) mmol/L Potassium 4.5 (3.3-5.1) mmol/L Chloride 105 (96-108) mmol/L Carbon Dioxide 25 (22-29) mmol/L Anion Gap 11 L (12-20) BUN 11 (9-16) mg/dL Creatinine 0.80 (0.5-1.4) mg/dL Estim Creat Clear Calc 101.0 Estimated GFR > 60 Random Glucose 166 H (60-115) mg/dL Calcium 9.9 (8.4-10.2) mg/dL Magnesium 2.1 (1.6-2.6) mg/dL Total Bilirubin 0.4 (0.0-1.0) mg/dL AST 35 H (5-31) U/L ALT 36 H (0-31) U/L Alkaline Phosphatase 71 (39-117) U/L Troponin I High Sens < 2.7 (<3.5-17.0) ng/L Total Protein 6.8 (6.5-8.0) g/dL Albumin 3.9 (3.5-5.0) g/dL Salicylates < 5.0 L (15-30) mg/dL Acetaminophen < 3 (<30) mcg/mL Ethyl Alcohol < 10 mg/dL Independent Interpretation I performed an independent interpretation of an: EKG Interpretation: Vent. Rate: 076 BPM Atrial Rate: 076 BPM P-R Int: 152 ms QRS Dur: 086 ms QT Int: 382 ms P-R-T Axes: 036 004 038 degrees QTc Int: 429 ms Normal sinus rhythm Normal ECG When compared with ECG of 11-JUN-2024 11:49, Nonspecific T wave abnormality, improved in Lateral leads QT has lengthened DD/ 1028 Radiology Impression Discussion of test interpretation with radiology: I have reviewed the radiologist's reading. Critical Care Time Critical Care Time Critical Care Time: Yes Total Critical Care Time: 64 Attestation: I spent 64 minutes of Critical Care Time with this patient. This does not include time spent on separately reported billable procedures. Discharge Plan Discharge Prescriptions: No Action clonidine HCl 0.1 mg tablet 0.1 mg PO TID trazodone 50 mg tablet 50 mg PO BEDTIME ibuprofen 800 mg tablet 800 mg PO TID clonazepam 1 mg tablet 1 mg PO TID PRN (Reason: Anxiety) naproxen 250 mg tablet 250 mg PO BID lithium carbonate 150 mg capsule 150 mg PO DAILY simvastatin 40 mg tablet 40 mg PO BEDTIME lithium carbonate 300 mg capsule 300 mg PO BID esomeprazole magnesium 40 mg capsule,delayed release(DR/EC) 40 mg PO DAILY gabapentin 300 mg capsule PO mirtazapine 15 mg tablet 15 mg PO BEDTIME dextroamphetamine-amphetamine 30 mg capsule,extended release 24hr 1 cap PO DAILY lamotrigine 100 mg tablet PO escitalopram oxalate 20 mg tablet 20 mg PO DAILY cyclobenzaprine 5 mg tablet 5 mg PO BEDTIME PRN (Reason: Muscle Spasm) solifenacin 5 mg tablet 5 mg PO DAILY cholecalciferol (vitamin D3) 25 mcg (1,000 unit) tablet 25 mcg PO DAILY mirabegron [Myrbetriq] 50 mg tablet extended release 24 hr 50 mg PO DAILY Vraylar 6 mg capsule 6 mg PO DAILY Print Language: Maltese
[2024-09-07 11:19] LABS: Basophils Absolute Auto 0.1 X10*3/uL (0.0-0.2); Basophils Percent Auto 0.8 % (0-2); Eosinophils Absolute Auto 0.6 X10*3/uL (0.0-0.4); Eosinophils Percent Auto 4.3 % (0-4); Hematocrit 38.6 % (37.0-47.0); Hemoglobin 13.5 g/dl (12.0-16.0); Imm Gran Abs Auto 0.09 X10*3/uL (0.00-0.03); Imm Gran Pct Auto 0.6 % (0.0-0.4); Lymphocytes Absolute Auto 4.5 X10*3/uL (1.2-4.9); Lymphocytes Percent Auto 32.3 % (20-40); Mean Corpuscular Hemoglobin 32.5 pg (27.0-33.0); Mean Corpuscular Volume 92.8 fL (80.0-98.0); Mean Platelet Volume 9.5 fL (9.4-12.3); Monocytes Absolute Auto 0.9 X10*3/uL (0.1-1.2); Monocytes Percent Auto 6.7 % (2-11); Neutrophils Absolute Auto 7.8 x10*3/uL (2.0-8.3); Neutrophils Percent Auto 55.3 % (45-73); Platelet Count 444 X10*3/uL (160-400); Red Blood Count 4.16 X10*6/uL (4.20-5.50); Red Cell Distribution Width 13.5 % (11.0-16.0)
[2024-09-07 11:29] LABS: Alanine Aminotransferase 36 U/L (0-31); Albumin Level 3.9 g/dL (3.5-5.0); Alkaline Phosphatase 71 U/L (39-117); Anion Gap 11 (12-20); Aspartate Amino Transferase 35 U/L (5-31); Bilirubin Total 0.4 mg/dL (0.0-1.0); Blood Urea Nitrogen 11 mg/dL (9-16); Calcium 9.9 mg/dL (8.4-10.2); Carbon Dioxide 25 mmol/L (22-29); Chloride 105 mmol/L (96-108); Estimated Glomerular Filt Rate > 60; Glucose Random 166 mg/dL (60-115); Magnesium 2.1 mg/dL (1.6-2.6); Potassium 4.5 mmol/L (3.3-5.1); Sodium 136 mmol/L (135-145); Total Protein 6.8 g/dL (6.5-8.0)
[2024-09-07 11:38] LABS: Troponin-I High Sensitivity < 2.7 ng/L (<3.5-17.0)
--- NOTE | 2024-09-07 11:55 | HO.WOUND ---
This RN poke with poison control. Per poison control, monitor pt for hypotension/increasing lethargy and supportive care. Pt lethargic, upright in bed maintaining own airway. BP on q15 min checks, 1:1 sitter remains at bedside. Pt on monitor tech for safety, NSR- 70s. Call de dios within reach, all needs met at this time.
[2024-09-07] MEDS: 0.9 % Sodium Chloride 1,000 ML 999 ML IV ×3 (12:13→14:31)
--- NOTE | 2024-09-07 12:33 | PC.NURSE ---
This RN spoke with poison control. Per poison control, monitor pt for hypotension/increasing lethargy and supportive care. Pt lethargic, upright in bed maintaining own airway. BP on q15 min checks, 1:1 sitter remains at bedside. Pt on athletic monitor for safety, NSR- 70s. Call de dios within reach, all needs met at this time.
[2024-09-07] MEDS: Naloxone HCl 2 MG/2 ML SYRINGE 10 MG IVPUSH (12:34)
--- NOTE | 2024-09-07 12:36 | PC.NURSE ---
Pt unarousable to verbal stimuli. Frances VANESSA made aware and at bedside. Verbal order for 10mg of IVP Narcan with little effect, pt remains lethargic. Bp cycling q5 min, pt hypotensive 97/59. Maintaining own airway, placed on 2L NC for support.
--- NOTE | 2024-09-07 15:51 | PC.NURSE ---
Pt arousable/more alert to verbal stimuli, responding to name. BPs 100s/60s, PA aware of BPs.
[2024-09-07 16:32] LABS: Ethanol < 10 mg/dL
[2024-09-07 16:33] LABS: Acetaminophen LAB < 3 mcg/mL (<30); Salicylate < 5.0 mg/dL (15-30)
--- NOTE | 2024-09-07 16:45 | PM.CCHP ---
History of Present Illness Date of Service: 09/07/24 Chief Complaint: Altered sensorium History is limited as patient is significantly altered and unable to give any history 39-year-old lady with past medical history of mood disorder, asthma, hyperlipidemia with previous history of suicidal attempts presented to the ED after an overdose. When she presented to the ED she said that she took an unknown amount of gabapentin, Klonopin and clonidine. Later during her stay in the ED she became extremely unresponsive and difficult to awake. She received a dose of Narcan without any improvement in her mental status so MICU was consulted. Review of Systems Review of Systems: Unable to obtain as patient is unresponsive PMFSH Past Medical History Medical History MDD (major depressive disorder), recurrent severe, without psychosis Bipolar 2 disorder Pre-op evaluation Seasonal allergies Urinary frequency Incontinence HLD (hyperlipidemia) Clonidine overdose Polysubstance overdose Asthma Bronchitis Smoker Posttraumatic stress disorder Borderline personality disorder Bipolar disorder, unspecified B12 deficiency Anemia Migraines Cervical cancer COPD (chronic obstructive pulmonary disease) Depression Anxiety Family History Family History Father No problems noted. Mother No problems noted. Surgical History Surgical History History of esophagogastroduodenoscopy (EGD) History of bilateral tubal ligation History of total splenectomy Social History Social History Household Members: Family Housing: Apartment Do you presently have visiting nurse or other home services: No Unable to assess alcohol history related to: Unable to respond Alcohol intake: never Comment: 1:1 sitter Patient Tobacco Use Status: Former Tobacco user Tobacco use type: Cigarette Cigarette Packs Per Day: 1.5 Cigarettes Per Day: 30.0 Years Smoked: Quit February 2023 e-Cigarette/Vaping Use: Currently Using Second Hand Smoke Exposure: No Use of substances other than those prescribed or required for medical reasons: Unable to respond Substance Use Type: Amphetamines and Sedatives Advance Directives: No Advance Directives Information Provided: Yes Do you have a plan to hurt others: No Plan service: No Current occupational status: disabled 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 Sexual orientation: Did not discuss Meds Allergies Allergy/AdvReac Type Severity Reaction Status Date / Time No Known Allergies Allergy Verified 09/07/24 10:31 Home Medications ?Medication ?Instructions ?Recorded ?Confirmed ?Last Taken ?Type dextroamphetamine-amphetamine ER 1 cap PO DAILY 02/07/23 03/26/24 12/01/23 06:00 History 30 mg 24hr capsule,extend release simvastatin 20 mg tablet 20 mg PO BEDTIME 02/07/23 03/26/24 11/30/23 19:00 History Celebrex 50 mg PO DAILY 12/02/23 03/26/24 12/01/23 08:00 History [id number] See Rx Instructions .Route 12/02/23 03/26/24 Unknown History mg-250 mg-65 mg tablet (Excedrin .COMPLEX PRN MIGRAINE/HEADACHE Migraine) calcium carbonate 600 mg-vitamin 1 tab PO DAILY 12/02/23 03/26/24 Unknown History D3 10 mcg (400 unit) tablet (Calcium 600 + D(3)) clonazepam 1 mg tablet 1 mg PO TID 12/02/23 03/26/24 12/01/23 08:00 History clonidine HCl 0.1 mg tablet 0.1 mg PO TID 12/02/23 03/26/24 12/01/23 08:00 History docusate sodium 100 mg capsule 200 mg PO BEDTIME PRN Constipation 12/02/23 03/26/24 11/30/23 19:00 History folic acid 1 mg tablet 1 mg PO DAILY 12/02/23 03/26/24 12/01/23 08:00 History lithium carbonate 150 mg capsule 150 mg PO BEDTIME 12/02/23 03/26/24 11/30/23 19:00 History lithium carbonate 300 mg capsule 300 mg PO BID 12/02/23 03/26/24 12/01/23 08:00 History loratadine 10 mg tablet 10 mg PO DAILY 12/02/23 03/26/24 12/01/23 08:00 History mirtazapine 7.5 mg tablet 15 mg PO BEDTIME 12/02/23 03/26/24 11/30/23 19:00 History sumatriptan succinate 50 mg tablet 50 mg PO DAILY [id number] PRN Migraine 12/02/23 03/26/24 Unknown History Headache lamotrigine 100 mg tablet 100 mg PO DAILY 01/23/24 03/26/24 Unknown History Physical Exam Vital Signs: Vital Signs: Last Vital Signs Temp 98.0 F 09/07/24 11:11 Pulse 59 09/07/24 16:18 Resp 16 09/07/24 16:18 BP 95/57 L 09/07/24 16:18 Pulse Ox 98 09/07/24 16:18 O2 Del Method Room Air 09/07/24 16:18 O2 Flow Rate 2 09/07/24 15:34 BMI result Body Mass Index 33.7 General: Patient poorly responsive lying in the bed Nutritional Appearance: well nourished and overweight Eyes: appearance normal, both eyes and all related structures; Alignment and Position: alignment normal and position normal Neck: No lymphadenopathy, no thyromegaly Resp: bilateral air entry equal, occasional added sounds present Cardio: Regular rate, regular rhythm; Heart sounds: S1 normal heart sound present and S2 normal heart sound present GI: soft, nontender, no guarding, no hepatosplenomegaly : bladder normal to inspection, bladder normal to palpation, no renal angle tenderness Skin: no rashes or lesions noted and elasticity normal Neuro: o poorly responsive, not following any commands Results Labs 09/07/24 11:09 09/07/24 11:09 Labs: Laboratory Results - last 24 hr 09/07/24 09/07/24 11:09 16:15 MCV 92.8 MCH 32.5 MCHC 35.0 RDW 13.5 Plt Count 444 H MPV 9.5 Immature Gran % (Auto) 0.6 H Neut % (Auto) 55.3 Lymph % (Auto) 32.3 [place] % (Auto) 6.7 Eos % (Auto) 4.3 H Baso % (Auto) 0.8 Lymph # (Auto) 4.5 [place] # (Auto) 0.9 Eos # (Auto) 0.6 H Baso # (Auto) 0.1 Abs Immat Gran (auto) 0.09 H Absolute Neuts (auto) 7.8 Absolute Nucleated RBC 0.000 Nucleated RBC % (auto) 0.0 Anion Gap 11 L Estim Creat Clear Calc 101.0 Estimated GFR > 60 Random Glucose 166 H Calcium 9.9 Magnesium 2.1 Total Bilirubin 0.4 AST 35 H ALT 36 H Alkaline Phosphatase 71 Troponin I High Sens < 2.7 Total Protein 6.8 Albumin 3.9 Salicylates < 5.0 L Acetaminophen < 3 Ethyl Alcohol < 10 Assessment and Plan (1) Suicide attempt by multiple drug overdose: Status: Acute (2) MDD (major depressive disorder), recurrent severe, without psychosis: Status: Acute (3) Borderline personality disorder: Status: Chronic Plan Multiple medication overdose: Patient with significant mood disorder with previous suicidal attempt presents with ingestion of unknown amount of Klonopin, clonidine and gabapentin We will continue to closely monitor her respiratory status, if it worsens we will intubate her for airway protection Blood pressure is borderline low, possibly due to adverse effects of clonidine. We will give her fluid boluses, if she does not respond we will start her on vasopressor support Rest of the labs are stable Total time managing care of this patient today: 35 minutes.
[2024-09-07] MEDS: Lactated Ringers 1,000 ML 100 ML IVCONT (17:40)
[2024-09-07 18:03] LABS: Phosphorus 3.3 mg/dL (2.7-4.5)
--- NOTE | 2024-09-07 18:59 | PHA.MEDREC ---
Pharmacy Consult ? Medication Reconciliation Pharmacy has completed the medication reconciliation. Patient had list from [facility] in her chart, but based on claim history it seemed a little outdated (i.e. simvastatin listed as 20mg but last few fills are for 40mg) used list combined with claim history.
[2024-09-08] VITALS (14 sets, daily range): BP systolic 112–146; BP diastolic 68–94; PULSE 51–74; RESP 12–20; TEMP 36–37.1; O2SAT 92–98; BMI 34.9
[2024-09-08] MEDS: Lactated Ringers 1,000 ML 100 ML IVCONT (02:41)
[2024-09-08 06:17] LABS: Basophils Absolute Auto 0.1 X10*3/uL (0.0-0.2); Basophils Percent Auto 0.6 % (0-2); Eosinophils Absolute Auto 0.6 X10*3/uL (0.0-0.4); Eosinophils Percent Auto 4.2 % (0-4); Hematocrit 39.6 % (37.0-47.0); Hemoglobin 13.3 g/dl (12.0-16.0); Imm Gran Abs Auto 0.06 X10*3/uL (0.00-0.03); Imm Gran Pct Auto 0.4 % (0.0-0.4); Lymphocytes Absolute Auto 5.5 X10*3/uL (1.2-4.9); Lymphocytes Percent Auto 36.6 % (20-40); MANUAL DIFF FLAG SCAN; Mean Corpuscular HGB Conc 33.6 g/dl (31.0-35.0); Mean Corpuscular Hemoglobin 32.1 pg (27.0-33.0); Mean Corpuscular Volume 95.7 fL (80.0-98.0); Monocytes Percent Auto 6.6 % (2-11); Neutrophils Absolute Auto 7.7 x10*3/uL (2.0-8.3); Neutrophils Percent Auto 51.6 % (45-73); Platelet Count 425 X10*3/uL (160-400); Red Blood Count 4.14 X10*6/uL (4.20-5.50); Red Cell Distribution Width 13.5 % (11.0-16.0); SCAN SMEAR FLAG 1; White Blood Count 14.9 X10*3/uL (4.8-10.8)
[2024-09-08 06:29] LABS: Alanine Aminotransferase 38 U/L (0-31); Albumin Level 3.5 g/dL (3.5-5.0); Alkaline Phosphatase 68 U/L (39-117); Anion Gap 13 (12-20); Aspartate Amino Transferase 38 U/L (5-31); Bilirubin Total 0.4 mg/dL (0.0-1.0); Blood Urea Nitrogen 8 mg/dL (9-16); Calcium 9.3 mg/dL (8.4-10.2); Carbon Dioxide 21 mmol/L (22-29); Chloride 108 mmol/L (96-108); Creatinine Clr Calc Pharmacy 126.9; Estimated Glomerular Filt Rate > 60; Glucose Random 118 mg/dL (60-115); Potassium 4.6 mmol/L (3.3-5.1); Sodium 137 mmol/L (135-145); Total Protein 6.1 g/dL (6.5-8.0)
[2024-09-08 06:46] LABS: SLIDE REVIEW VERIFIED
[2024-09-08] MEDS: Cholecalciferol (Vitamin D3) 25 MCG TABLET PO (09:43)
[2024-09-08] MEDS: Dextroamphetamine/Amphetamine XR 10 MG CAP.ER.24H 30 MG PO (09:43)
[2024-09-08] MEDS: Folic Acid 1 MG TABLET 2 MG PO (09:43)
[2024-09-08] MEDS: Escitalopram Oxalate 20 MG TABLET PO (09:43)
[2024-09-08] MEDS: Mirabegron 50 MG TAB.ER.24H PO (09:43)
[2024-09-08] MEDS: lamoTRIgine 100 MG TABLET PO (09:43)
[2024-09-08] MEDS: Gabapentin 300 MG CAPSULE PO ×2 (09:43→20:33)
[2024-09-08] MEDS: Cariprazine HCl 3 MG CAPSULE 6 MG PO (09:43)
[2024-09-08] MEDS: Tolterodine Tartrate LA 4 MG CAP.ER.24H PO (09:43)
[2024-09-08] MEDS: Lithium Carbonate 300 MG CAPSULE PO ×2 (09:43→20:33)
--- NOTE | 2024-09-08 12:18 | PM.CCPN ---
Subjective Subjective Date of Service: 09/08/24 Critical Care Time (minutes): 30 Comment: Mentation improved this morning, could converse well, could walk to use the toilet Physical Exam Vital Signs: Vital Signs: Last Vital Signs Temp 97.7 F 09/08/24 07:00 Pulse 55 09/08/24 08:00 Resp 12 09/08/24 08:00 BP 129/79 09/08/24 08:00 Pulse Ox 96 09/08/24 08:00 O2 Del Method Room Air 09/08/24 08:00 O2 Flow Rate 2 09/07/24 18:03 BMI result Body Mass Index 34.9 General: acute distress, ill appearing and tired appearing Nutritional Appearance: well nourished and overweight Eyes: appearance normal, both eyes and all related structures; Alignment and Position: alignment normal and position normal Neck: No lymphadenopathy, no thyromegaly Resp: bilateral air entry equal, occasional added sounds present Cardio: Regular rate, regular rhythm; Heart sounds: S1 normal heart sound present and S2 normal heart sound present GI: soft, nontender, no guarding, no hepatosplenomegaly : bladder normal to inspection, bladder normal to palpation, no renal angle tenderness Skin: no rashes or lesions noted and elasticity normal Neuro: oriented to person, oriented to place, oriented to time and moves all extremities Objective Data Labs 09/08/24 05:55 09/08/24 05:55 Labs: Laboratory Results - last 24 hr 09/07/24 09/08/24 16:15 05:55 WBC 14.9 H RBC 4.14 L Hgb 13.3 Hct 39.6 MCV 95.7 MCH 32.1 MCHC 33.6 RDW 13.5 Plt Count 425 H MPV 10.0 Immature Gran % (Auto) 0.4 Neut % (Auto) 51.6 Lymph % (Auto) 36.6 [place] % (Auto) 6.6 Eos % (Auto) 4.2 H Baso % (Auto) 0.6 Lymph # (Auto) 5.5 H [place] # (Auto) 1.0 Eos # (Auto) 0.6 H Baso # (Auto) 0.1 Abs Immat Gran (auto) 0.06 H Absolute Neuts (auto) 7.7 Absolute Nucleated RBC 0.000 Nucleated RBC % (auto) 0.0 Smear Tech's Comments VERIFIED Sodium 137 Potassium 4.6 Chloride 108 Carbon Dioxide 21 L Anion Gap 13 BUN 8 L Creatinine 0.65 Estim Creat Clear Calc 126.9 Estimated GFR > 60 Random Glucose 118 H Calcium 9.3 D Phosphorus 3.3 Magnesium 2.0 Total Bilirubin 0.4 AST 38 H ALT 38 H Alkaline Phosphatase 68 Total Protein 6.1 L Albumin 3.5 Salicylates < 5.0 L Acetaminophen < 3 Ethyl Alcohol < 10 Progress Note: A&P Assessment and plan (1) Borderline personality disorder: Status: Chronic (2) Suicide attempt by multiple drug overdose: Status: Acute (3) MDD (major depressive disorder), recurrent severe, without psychosis: Status: Acute Plan Multiple medication overdose: Patient with significant mood disorder with previous suicidal attempt presents with ingestion of unknown amount of Klonopin, clonidine and gabapentin Her mentation has improved this morning, following commands, could use the restroom. Her labs are all stable. She is medically clear for transfer Psych has been consulted who is okay with her being transferred to psych floor Quality Stroke Does the patient have a stroke diagnosis?: No VTE Prior VTE?: No VTE Risk Level:: Medical - low VTE Device Contraindication: N/A - Device Ordered VTE Drug Contraindication: N/A - Med Ordered
--- NOTE | 2024-09-08 15:30 | MHC.CM.PN ---
Met with pt to discuss d/c planning needs: pt groggy and difficult to understand at times: states she resides w/spouse and children but has support from [facility] including assistance with medication management, transportation and counseling. Pt has no DME or other skilled services. Pt states she feels she needs to go to [place] psych prior to d/c to home. Explained to pt that an eval will occur when she is medically stable. Pt may need assistance with transportation to home - she is unsure if spouse can assist. She states to contact her [facility] patient case coordinator but was unable to recall a number. Will reapproach when pt is more alert. IMM in chart. HCP declined
[2024-09-08] MEDS: clonazePAM 0.5 MG TABLET PO ×2 (15:36→23:35)
[2024-09-08] MEDS: 0.9 % Sodium Chloride Flush 3 ML SYRINGE IVFLUSH ×2 (15:38→20:33)
[2024-09-08] MEDS: cloNIDine HCL 0.1 MG TABLET PO ×2 (16:50→20:32)
[2024-09-08] MEDS: lamoTRIgine 25 MG TABLET 150 MG PO (20:32)
[2024-09-08] MEDS: Lithium Carbonate 300 MG TABLET 150 MG PO (20:33)
[2024-09-08] MEDS: Atorvastatin Calcium 20 MG TABLET PO (20:33)
--- NOTE | 2024-09-08 21:00 | MHC.CARE ---
Pt evaluated by the CARE team and it is recommended that Pt is admitted for psychiatric treatment. Disposition discussed with Hospitalist Bill Rankin.
[2024-09-09] VITALS (7 sets, daily range): BP systolic 104–128; BP diastolic 59–84; PULSE 51–69; RESP 16–18; TEMP 36.1–37; O2SAT 95–96; BMI 33.1
[2024-09-09] MEDS: Omeprazole 20 MG CAPSULE.DR PO (05:53)
[2024-09-09] MEDS: Gabapentin 300 MG CAPSULE PO ×2 (07:53→20:18)
[2024-09-09] MEDS: Tolterodine Tartrate LA 4 MG CAP.ER.24H PO (07:54)
[2024-09-09] MEDS: Mirabegron 50 MG TAB.ER.24H PO (07:54)
[2024-09-09] MEDS: Lithium Carbonate 300 MG CAPSULE PO ×2 (07:54→20:19)
[2024-09-09] MEDS: lamoTRIgine 100 MG TABLET PO (07:54)
[2024-09-09] MEDS: Cariprazine HCl 3 MG CAPSULE 6 MG PO (07:56)
[2024-09-09] MEDS: clonazePAM 0.5 MG TABLET PO (07:57)
[2024-09-09] MEDS: cloNIDine HCL 0.1 MG TABLET PO ×3 (07:57→20:20)
[2024-09-09] MEDS: Dextroamphetamine/Amphetamine XR 10 MG CAP.ER.24H 30 MG PO (07:57)
[2024-09-09] MEDS: 0.9 % Sodium Chloride Flush 3 ML SYRINGE IVFLUSH ×3 (08:04→20:21)
[2024-09-09] MEDS: Escitalopram Oxalate 20 MG TABLET PO (08:12)
--- NOTE | 2024-09-09 11:03 | PC.NURSE ---
Pt requesting debit card from belongings in order to pay phone bill. This RN was able to remove [employer] debit card from lock up pod in ED with help of clinical unit coordinator from ED pod. Pt was given card at bedside on S3 and was able to use card to pay bill. Card was returned to lock up in ED pod, witnessed by Pod accredited legal secretary. Pt aware card was returned to locked area.
--- NOTE | 2024-09-09 13:54 | P.PNIM_ITS ---
Subjective Subjective Date of Service: 09/09/24 Interval History: seen and evaluated feels better denies suicide intention now Review of Systems Review of Systems: Yes all other systems are reviewed and are negative Physical Exam 2 Vital Signs: Vital Signs: Last Vital Signs Temp 96.9 F 09/09/24 08:31 Pulse 69 09/09/24 08:31 Resp 18 09/09/24 08:31 BP 116/74 09/09/24 07:57 Pulse Ox 95 09/09/24 08:31 O2 Del Method Room Air 09/09/24 08:31 O2 Flow Rate 2 09/07/24 18:03 BMI result Body Mass Index 33.1 Const: Other: Constitutional : interactive, not in distress Cardiovascular : no JVP, no lower extremity edema Respiratory : bilateral chest movement, not in resp distress Gastrointestinal: soft, lax, Non tender Skin : Warm, Dry Neurological : Alert & oriented , No focal deficit Objective Data Active Medications Albuterol Sulfate (Albuterol Sulfate 90 Mcg 8 Gm Inhaler) 2 puff INHALE Q4H PRN PRN Reason: Shortness Of Breath Or Wheezing Amphetamine/Dextroamphetamine (Dextroamphetamine/Amphetamine Xr 10 Mg Cap.Er.24h) 30 mg PO DAILY [facility] Last Admin: 09/09/24 07:57 Dose: 30 mg Documented By: ALBINO Atorvastatin Calcium (Atorvastatin Calcium 20 Mg Tablet) 20 mg PO BEDTIME JOSE Last Admin: 09/08/24 20:33 Dose: 20 mg Documented By: SANDRA Cariprazine (Cariprazine Hcl 3 Mg Capsule) 6 mg PO DAILY [facility] Last Admin: 09/09/24 07:56 Dose: 6 mg Documented By: ALBINO Clonazepam (Clonazepam 0.5 Mg Tablet) 0.5 mg PO TID PRN PRN Reason: Anxiety Last Admin: 09/09/24 07:57 Dose: 0.5 mg Documented By: ALBINO Clonidine HCl (Clonidine Hcl 0.1 Mg Tablet) 0.1 mg PO TID [facility]; Protocol Last Admin: 09/09/24 07:57 Dose: 0.1 mg Documented By: ALBINO Docusate Sodium (Docusate Sodium 100 Mg Capsule) 100 mg PO BID PRN PRN Reason: Constipation Enoxaparin Sodium (Enoxaparin Sodium 40 Mg/0.4 Ml Syringe) 40 mg SUBCUT Q24H [facility] Last Admin: 09/08/24 15:25 Dose: Not Given Documented By: ISSI Non-Admin Reason: Patient Refused Escitalopram Oxalate (Escitalopram Oxalate 20 Mg Tablet) 20 mg PO DAILY [facility] Last Admin: 09/09/24 08:12 Dose: 20 mg Documented By: ALBINO Folic Acid (Folic Acid 1 Mg Tablet) 2 mg PO DAILY [facility] Last Admin: 09/09/24 08:16 Dose: Not Given Documented By: ALBINO Non-Admin Reason: Patient Refused Gabapentin (Gabapentin 300 Mg Capsule) 300 mg PO BID [facility] Last Admin: 09/09/24 07:53 Dose: 300 mg Documented By: ALBINO Ibuprofen (Ibuprofen 400 Mg Tablet) 400 mg PO TID PRN PRN Reason: Pain, Moderate(Pain Scale 4-6) Lamotrigine (Lamotrigine 100 Mg Tablet) 100 mg PO DAILY [facility] Last Admin: 09/09/24 07:54 Dose: 100 mg Documented By: ALBION Lamotrigine (Lamotrigine 25 Mg Tablet) 150 mg PO BEDTIME [facility] Last Admin: 09/08/24 20:32 Dose: 150 mg Documented By: SANDRA [place] Carbonate ([place] Carbonate 300 Mg Tablet) 150 mg PO BEDTIME [facility] Last Admin: 09/08/24 20:33 Dose: 150 mg Documented By: SANDRA [place] Carbonate ([place] Carbonate 300 Mg Capsule) 300 mg PO BID [facility] Last Admin: 09/09/24 07:54 Dose: 300 mg Documented By: ALBINO Mirabegron (Mirabegron 50 Mg Tab.Er.24h) 50 mg PO DAILY [facility] Last Admin: 09/09/24 07:54 Dose: 50 mg Documented By: ALBINO Omeprazole (Omeprazole 20 Mg Capsule.Dr) 20 mg PO DAILY@0630 [facility] Last Admin: 09/09/24 05:53 Dose: 20 mg Documented By: SANDRA Sodium Chloride (0.9 % Sodium Chloride Flush 3 Ml Syringe) 3 ml IVFLUSH QSHIFT [facility] Last Admin: 09/09/24 08:04 Dose: 3 ml Documented By: ALBINO Tolterodine Tartrate (Tolterodine Tartrate La 4 Mg Cap.Er.24h) 4 mg PO DAILY [facility] Last Admin: 09/09/24 07:54 Dose: 4 mg Documented By: ALBINO Trazodone HCl (Trazodone Hcl 50 Mg Tablet) 50 mg PO BEDTIME PRN PRN Reason: Sleep Vitamin D (Cholecalciferol (Vitamin D3) 25 Mcg Tablet) 25 mcg PO DAILY JOSE Last Admin: 09/09/24 08:16 Dose: Not Given Documented By: ALBINO Non-Admin Reason: Patient Refused Labs 09/08/24 05:55 09/08/24 05:55 Assessment and Plan (1) Polysubstance overdose: Status: Acute (2) MDD (major depressive disorder), recurrent severe, without psychosis: Status: Acute Plan 39-year-old lady with past medical history of mood disorder, asthma, hyperlipidemia with previous history of suicidal attempts presented to the ED after an overdose. Suidice intention with drug overdose feels better today, denies suicide intention but remains vague and reports that she did it because she was stressed and frustrated Restarted her home meds with fair tolerance Care team rec Psych floor admission Psych consult per patient request Sitter at bedside Mood disored Continue home medicaitons Lamotrigin, Gabapentin, [place], Clonidine, Clonazepam and Adderal DVT PPx Lovenox The patient at risk of suicide and will be monitored in medical floor pending psychiatry placement. Quality Stroke Does the patient have a stroke diagnosis?: No VTE Prior VTE?: No VTE Risk Level:: Medical - low VTE Device Contraindication: N/A - Device Ordered VTE Drug Contraindication: N/A - Med Ordered
[2024-09-09] MEDS: clonazePAM 1 MG TABLET PO ×2 (14:12→20:27)
[2024-09-09] MEDS: Ibuprofen 400 MG TABLET PO (17:04)
[2024-09-09] MEDS: Lithium Carbonate 300 MG TABLET 150 MG PO (20:19)
[2024-09-09] MEDS: lamoTRIgine 25 MG TABLET 150 MG PO (20:19)
[2024-09-10 03:08] VITALS: BP 112/69; PULSE 60; RESP 16; TEMP 36.1; O2SAT 95
[2024-09-10] MEDS: Omeprazole 20 MG CAPSULE.DR PO (06:00)
[2024-09-10 06:51] VITALS: BP 111/79; PULSE 57; RESP 18; TEMP 36.3; O2SAT 95
[2024-09-10] MEDS: 0.9 % Sodium Chloride Flush 3 ML SYRINGE IVFLUSH (08:14)
[2024-09-10] MEDS: clonazePAM 1 MG TABLET PO ×2 (08:15→13:48)
[2024-09-10] MEDS: Gabapentin 300 MG CAPSULE PO (08:15)
[2024-09-10] MEDS: Cariprazine HCl 3 MG CAPSULE 6 MG PO (08:15)
[2024-09-10] MEDS: Lithium Carbonate 300 MG CAPSULE PO (08:15)
[2024-09-10 08:16] VITALS: BP 111/79
[2024-09-10] MEDS: Mirabegron 50 MG TAB.ER.24H PO (08:16)
[2024-09-10] MEDS: Escitalopram Oxalate 20 MG TABLET PO (08:16)
[2024-09-10] MEDS: cloNIDine HCL 0.1 MG TABLET PO ×2 (08:16→14:50)
[2024-09-10] MEDS: Dextroamphetamine/Amphetamine XR 10 MG CAP.ER.24H 30 MG PO (08:16)
[2024-09-10] MEDS: Tolterodine Tartrate LA 4 MG CAP.ER.24H PO (08:16)
[2024-09-10] MEDS: lamoTRIgine 100 MG TABLET PO (08:16)
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
[2024-09-10 09:56] LABS: Appearance Urine Clear; Color Urine Yellow; Glucose Urine UA Negative (Negative); Leukocyte Esterase Urine Negative (Negative); Nitrite Urine Negative (Negative); Urine Blood Negative (Negative); Urine Ketones Negative (Negative); Urine Protein Negative (Neg-Trace)
[2024-09-10 11:12] VITALS: BMI 33.0
[2024-09-10] MEDS: Ibuprofen 400 MG TABLET PO (12:38)
--- NOTE | 2024-09-10 13:36 | PM.DS ---
DS: Providers Provider Date of Service: 09/10/24 Date of admission: 09/07/24 16:56 Date of discharge: 09/10/24 Primary care physician: Rhoda Pina MD Consults: 09/07/24 11:54 Consult to Care Team Stat Comment: Reason for consultation: suicide attempt 09/08/24 15:12 Consult to Care Team Routine Comment: Reason for consultation: assess for IPLOC, medically Clear 09/09/24 13:57 Consult to Psychiatry Routine Consulting Provider: Psych Covering Reason for consultation: SI , patient request DS: Diagnosis Discharge Diagnosis (1) Bipolar 2 disorder: Status: Acute (2) Borderline personality disorder: Status: Chronic (3) Posttraumatic stress disorder: Status: Acute (4) Hypotension: Status: Acute (5) Polysubstance overdose: Status: Acute DS: Summary Hospital Course Hospital Course: Admission note HPI History is limited as patient is significantly altered and unable to give any history. 39-year-old lady with past medical history of mood disorder, asthma, hyperlipidemia with previous history of suicidal attempts presented to the ED after an overdose. When she presented to the ED she said that she took an unknown amount of gabapentin, Klonopin and clonidine. Later during her stay in the ED she became extremely unresponsive and difficult to awake. She received a dose of Narcan without any improvement in her mental status so MICU was consulted. Hospital course The patient was monitored in ICU for low blood pressure readings post Suicide intention with drug overdose on her home medicaitons. did not require intubation or pressors. feels better and denies suicide intention but remains vague and reports that she did it because she was stressed and frustrated. Restarted her home meds with fair tolerance. Care team rec Psych floor admission. Psych consulted per patient request and recommended admission to psych floor. Sitter at bedside during hospital stay. To be discharged to psychiatry rashid this afternoon. Time Attestation Discharge Coordination Time (in mins): 43 Quality: Safe Use of Opioids Does Pt have an Active Cancer Diagnosis on the Problem List?: No Quality: Stroke Does the patient have a stroke diagnosis?: No Physical Exam Vital Signs: Vital Signs: Last Vital Signs Temp 97.4 F 09/10/24 06:51 Pulse 57 09/10/24 06:51 Resp 18 09/10/24 06:51 BP 111/79 09/10/24 08:16 Pulse Ox 95 09/10/24 06:51 O2 Del Method Room Air 09/10/24 06:51 O2 Flow Rate 2 09/07/24 18:03 BMI result Body Mass Index 33.0 Const: Other: Constitutional : interactive, not in distress Cardiovascular : no JVP, no lower extremity edema Respiratory : bilateral chest movement, not in resp distress Gastrointestinal: soft, lax, Non tender Skin : Warm, Dry Neurological : Alert & oriented , No focal deficit DS: Data Data Completed and Pending Labs on day of discharge: Laboratory Results - last 24 hr 09/10/24 09:01 Urine Color Yellow Urine Appearance Clear Urine pH 8.0 Ur Specific Elizabeth 1.010 Urine Protein Negative Urine Glucose (UA) Negative Urine Ketones Negative Urine Blood Negative Urine Nitrite Negative Ur Leukocyte Esterase Negative Discharge Plan Discharge Anticipated Discharge Date/Time: 09/10/24 13:34 Patient Disposition: Xfer Psychiatric Hosp Discharge Diagnosis: Suicide attempt Drug overdose Referrals: Rhoda Pina MD [Primary Care Provider] - 1 Week Discharge Medications: Continued clonidine HCl 0.1 mg tablet 0.1 mg PO TID trazodone 50 mg tablet 50 mg PO BEDTIME PRN (Reason: Sleep) ibuprofen 800 mg tablet 800 mg PO TID clonazepam 1 mg tablet 1 mg PO TID PRN (Reason: Anxiety) lithium carbonate 150 mg capsule 150 mg PO BEDTIME simvastatin 40 mg tablet 40 mg PO BEDTIME lithium carbonate 300 mg capsule 300 mg PO BID esomeprazole magnesium 40 mg capsule,delayed release(DR/EC) 40 mg PO DAILY@0630 gabapentin 300 mg capsule 300 mg PO BID dextroamphetamine-amphetamine 30 mg capsule,extended release 24hr 1 cap PO DAILY lamotrigine 100 mg tablet 100 mg PO DAILY escitalopram oxalate 20 mg tablet 20 mg PO DAILY cyclobenzaprine 5 mg tablet 5 mg PO BEDTIME solifenacin 5 mg tablet 5 mg PO DAILY cholecalciferol (vitamin D3) 25 mcg (1,000 unit) tablet 25 mcg PO DAILY mirabegron [Myrbetriq] 50 mg tablet extended release 24 hr 50 mg PO DAILY Vraylar 6 mg capsule 6 mg PO DAILY lamotrigine 150 mg tablet 150 mg PO BEDTIME docusate sodium 100 mg Capsule 100 mg PO BID PRN (Reason: Constipation) folic acid 1 mg tablet 2 mg PO DAILY albuterol sulfate 90 mcg/actuation HFA aerosol inhaler 2 puff inhalation Q4H PRN (Reason: Shortness Of Breath Or Wheezing) loratadine 10 mg tablet 10 mg PO DAILY Discharge Orders: Discharge Order (Routine); Ordered 09/10/24 Ordered By: Bill Rankin Diet: Advance to usual diet Activity on Discharge: As tolerated Stand Alone Forms: Patient Portal Discharge page Print Language: Qatari
[2024-09-10 15:36] VITALS: BP 134/73; PULSE 68; RESP 17; TEMP 36.8; O2SAT 97
--- NOTE | 2024-09-10 15:45 | MHC.CM.PN ---
PT MEDICALLY CLEARED FOR DC, PT DISCHARGING TO [facility], STAFF FOR TRANSPORT.
== END 2024-09-10 15:48 | DRG 918 ==
LOC: HO.ED 11:08 → HO.EDOVER 17:07 → HO.ICU 17:11 → HO.EDOVER 17:12 → HO.ICU 17:26 → HO.S3 09-08 12:45
PROVIDERS: Admitting Provider Internal Medicine Critical Care Medicine; Emergency Provider Emergency Medicine Emergency Medical Services; PCP Student in an Organized Health Care Education/Training Program; Visit Provider Student in an Organized Health Care Education/Training Program
DX: T50.912A Poisoning by multiple unspecified drugs, medicaments and biological substances, intentional self-harm, initial encounter (principal); F33.2 Major depressive disorder, recurrent severe without psychotic features; I95.2 Hypotension due to drugs; F43.10 Post-traumatic stress disorder, unspecified; F60.3 Borderline personality disorder; Z91.51 Personal history of suicidal behavior; Z87.891 Personal history of nicotine dependence; Z79.899 Other long term (current) drug therapy
CPT/HCPCS: 36415; 80053; 80061; 80143; 80175; 80178; 80179; 80307; 81003; 82565; 83036; 83735; 84100; 84484; 84520; 85025; 93005; 99285; J2310; J7120; S9485

== ENCOUNTER → 2024-09-07 10:28 | Outpatient (BNV) | payer MEDICARE, MEDICAID, SELFPAY | PROVIDERS: Admitting Provider Internal Medicine Critical Care Medicine; Emergency Provider Emergency Medicine Emergency Medical Services; PCP Student in an Organized Health Care Education/Training Program; Visit Provider Internal Medicine | DX: R41.82 Altered mental status, unspecified (principal) | CPT/HCPCS: 93010 ==

== ENCOUNTER → 2024-09-07 10:40 | Outpatient (BNV) | payer MEDICARE, MEDICAID, SELFPAY | PROVIDERS: Emergency Provider Emergency Medicine Emergency Medical Services; PCP Student in an Organized Health Care Education/Training Program; Visit Provider Internal Medicine Critical Care Medicine | DX: T50.912A Poisoning by multiple unspecified drugs, medicaments and biological substances, intentional self-harm, initial encounter (principal); F33.2 Major depressive disorder, recurrent severe without psychotic features; F60.3 Borderline personality disorder | CPT/HCPCS: 99222; 99232 ==

== ENCOUNTER → 2024-09-07 16:56 | Outpatient (BNV) | payer MEDICARE, MEDICAID, SELFPAY | PROVIDERS: Admitting Provider Internal Medicine Critical Care Medicine; Emergency Provider Emergency Medicine Emergency Medical Services; PCP Student in an Organized Health Care Education/Training Program; Visit Provider Psychiatry & Neurology Psychiatry | DX: F60.3 Borderline personality disorder (principal); F31.81 Bipolar II disorder; F43.11 Post-traumatic stress disorder, acute | CPT/HCPCS: 90792 ==

== ENCOUNTER → 2024-09-07 16:56 | Outpatient (BNV) | payer MEDICARE, MEDICAID, SELFPAY | PROVIDERS: Admitting Provider Internal Medicine Critical Care Medicine; Emergency Provider Emergency Medicine Emergency Medical Services; PCP Student in an Organized Health Care Education/Training Program; Visit Provider Student in an Organized Health Care Education/Training Program | DX: F31.81 Bipolar II disorder (principal); F60.3 Borderline personality disorder; F43.10 Post-traumatic stress disorder, unspecified; I95.9 Hypotension, unspecified; T50.901A Poisoning by unspecified drugs, medicaments and biological substances, accidental (unintentional), initial encounter | CPT/HCPCS: 99232; 99239 ==

== ENCOUNTER 2024-09-10 15:08 | Inpatient (IN) | payer MEDICARE, MEDICAID, SELFPAY ==
--- OUTSIDE RECORDS SUMMARY | 2024-09-10 16:01 | XMS_ITS | Continuity of Care Document ---
Author Organization [facility] Address [address], [address] [place] [address]- Care Team Providers Care Japanese Tutor Name Role Phone Rhoda Pina MD Primary Care Physician [phone] Encounter [facility] Date(s): 12/12/23 [facility] [address], [address] [place] [address]- Attending Physician: Isabella Woodall MD Referring Physician: Not on Staff, Referring MD Allergies, Adverse Reactions, Alerts No Known Allergies Immunizations Given and Recorded Vaccine Date Status Refusal Reason haemophilus b conjugate (PRP-T) vaccine 06/22/17 G iven pneumococcal 23-valent vaccine 1 06/22/17 Given Meningococcal Conjugate Vaccine 2 06/22/17 Given 1Result Comment: given anterior deltoid 2Result Comment: given posterior deltoid Medications Adderall 30 mg oral tablet 1 tablet = 30 mg, By Mouth, Daily in AM, 0 Refills, Maintenance, 10/13/23 13:13:00 EST, Tablet, Partial fill upon patient request if the prescription is for a schedule II opioid drug. Start Date: 10/13/23 Status: Ordered albuterol 0.021% inhalation solution 3 mL = 0.63 mg, Neb, Every 4 hours, PRN Wheezing/Shortness of Breath, 0 Refills, Maintenance, 04/26/17 13:38:30 Start Date: 04/26/17 Status: Ordered calcium (as carbonate)-vitamin D 500 mg-100 intl units oral tablet, chewable 2 tablet, Daily, 0 Refills, Maintenance, 10/14/23 11:29:00 EST, Partial fill upon patient request if the prescription is for a schedule II opioid drug. Start Date: 10/14/23 Status: Ordered CeleBREX 50 mg oral capsule 1 capsule = 50 mg, By Mouth, Daily in AM, 0 Refills, Maintenance, 10/14/23 11:29:00 EST, Partial fill upon patient request if the prescription is for a schedule II opioid drug. Start Date: 10/14/23 Status: Ordered Claritin 10 mg oral tablet 10 mg, 1, tablet, By Mouth, Daily, Refills 0, Maintenance, 10/14/23 11:30:00 EST, Partial fill uponpatient request if the prescription is for a schedule II opioid drug. Start Date: 10/14/23 Status: Ordered cloNIDine 0.1 mg oral tablet 0.1 mg, 1, tablet, By Mouth, 3 times a day, Refills 0, Maintenance, 04/26/17 13:44:41 Start Date: 04/26/17 Status: Ordered Colace sodium 100 mg oral capsule 200 mg, 2, capsule, By Mouth, Daily, PRN, Refills 0, Maintenance, as needed for constipation, 10/14/23 11:31:00 EST, Partial fill upon patient request if the prescription is for a schedule II opioid drug. Start Date: 10/14/23 Status: Ordered Diflucan 150 mg oral tablet 1 tablet = 150 mg, By Mouth, Once, Repeat second dose after 3 days, # 2 tablet, 0 Refills, Soft Stop, 12/14/23 14:38:00 EST, Tablet, [facility], Partial fill upon patient request if the prescription is for a schedule II opioid drug., 160, cm... Start Date: 12/14/23 Status: Ordered Escitalopram = 15 mg, By Mouth, Daily, 0 Refills, Maintenance, 10/14/23 11:28:00 EST, Partial fill upon patient request if the prescription is for a schedule II opioid drug. Start Date: 10/14/23 Status: Ordered ferrous gluconate 324 mg oral tablet 1 tablet = 324 mg, By Mouth, Daily, 0 Refills, Maintenance, 10/14/23 11:31:00 EST, Partial fill upon patient request if the prescription is for a schedule II opioid drug. Start Date: 10/14/23 Status: Ordered folic acid 1 mg oral tablet 1, tablet, By Mouth, Daily, # 30 tablet, Refills 3, Maintenance, 10/12/23 16:49:00 EST, Route to Pharmacy Electronically, [facility], 160, cm, 12/21/21 10:36:00 EST, Height, 95.2, kg, 12/21/21 10:36:00 EST, Dry Weight Start Date: 10/12/23 Status: Ordered Gabapentin = 300 mg, By Mouth, 2 times a day, 0 Refills, Maintenance, 11/11/17 15:20:14 EST Start Date: 11/11/17 Status: Ordered KlonoPIN 1 mg oral tablet 1 tablet = 1 mg, By Mouth, 3 times a day, 0 Refills, Maintenance, 09/04/16 9:56:42 EDT, Tablet Start Date: 09/04/16 Status: Ordered lamotrigine 100 mg oral tablet 100 mg, 1, tablet, By Mouth, Daily, Refills 0, Maintenance, 10/14/23 11:32:00 EST, Partial fill upon patient request if the prescription is for a schedule II opioid drug. Start Date: 10/14/23 Status: Ordered lithium 450 mg oral tablet, extended release 1 tablet = 450 mg, By Mouth, 2 times a day, # 60 tablet, 0 Refills, Maintenance, 12/21/21 10:43:00 EST, ER Tablet, Partial fill upon patient request if the prescription is for a schedule II opioid drug. Start Date: 12/21/21 Status: Ordered metroNIDAZOLE 500 mg oral tablet 1 tablet = 500 mg, By Mouth, Every 12 hours, for 7 days, # 14 tablet, 0 Refills, Acute 12/21/23 14:38:00 EST, 12/14/23 14:38:00 EST, Tablet, [facility], Partial fill upon patient request ifthe prescription is for a schedule II opioid drug.,... Start Date: 12/14/23 Stop Date: 12/21/23 Status: Ordered mirtazapine 7.5 mg oral tablet 2 tablet = 15 mg, By Mouth, Daily at bedtime, 0 Refills, Maintenance, 10/14/23 11:34:00 EST, Partial fill upon patient request if the prescription is for a schedule II opioid drug. Start Date: 10/14/23 Status: Ordered Myrbetriq 50 mg oral tablet, extended release 1 tablet = 50 mg, By Mouth, Daily, do not crush or chew, # 30 tablet, 0 Refills, Maintenance, 10/14/23 11:33:00 EST, ER Tablet, Partial fill upon patient request if the prescription is for a scheduleII opioid drug. Start Date: 10/14/23 Status: Ordered Nexium Capsule 40 mg, By Mouth, Daily in AM, Refills 0, Maintenance, 10/13/23 13:14:00 EST, Partial fill upon patient request if the prescription is for a schedule II opioid drug. Start Date: 10/13/23 Status: Ordered ProAir RespiClick 90 mcg/inh inhalation powder 2 puffs, Inhalation, Every 4 hours, PRN Wheezing/Shortness of Breath, 0 Refills, Maintenance, 04/26/17 13:40:41 Start Date: 04/26/17 Status: Ordered Pulmicort Flexhaler 90 mcg = 180 mcg, Inhalation, 2 times a day, 0 Refills, Maintenance, 10/14/23 11:37:00 EST, Partial fill upon patient request if the prescription is for a schedule II opioid drug. Start Date: 10/14/23 Status: Ordered traZODone 50 mg oral tablet 50 mg, 1, tablet, By Mouth, Daily at bedtime, PRN, Refills 0, Maintenance, Other, 10/14/23 11:34:00EST, Partial fill upon patient request if the prescription is for a schedule II opioid drug. Start Date: 10/14/23 Status: Ordered Vitamin D3 1000 intl units oral capsule 1 capsule = 25 mcg, By Mouth, Daily, 0 Refills, Maintenance, 10/14/23 11:35:00 EST, Partial fill upon patient request if the prescription is for a schedule II opioid drug. Start Date: 10/14/23 Status: Ordered Vraylar 6 mg oral capsule 1 capsule = 6 mg, By Mouth, Daily, 0 Refills, Maintenance, 10/14/23 11:35:00 EST, Partial fill uponpatient request if the prescription is for a schedule II opioid drug. Start Date: 10/14/23 Status: Ordered Zocor 20 mg oral tablet 20 mg, 1, tablet, By Mouth, Daily before dinner, Refills 0, Maintenance, 10/14/23 11:36:00 EST, Partial fill upon patient request if the prescription is for a schedule II opioid drug. Start Date: 10/14/23 Status: Ordered Problem List Condition Confirmation Course Effective Dates Status H ealt Status Informant Adult ADHD Confirmed Active Anemia Confirmed Active Bipolar disease with depression/anxiety with suicide attempt in 11/2017 - psychiatrist Dr. Narayan at [facility] Confirmed Active JOHNATHAN 3 on biopsies from 10/06/16 at [place] 1:00 and 11:00. Was supposed to have CKC but got . 03/22/17 pap no interp. possible. Pap smear 09/12/17 ASCUS, HPV negative. See other problem list entry for plan Confirmed Active COPD with asthma Confirmed Active 03/10/18 pap during remains ASCUS, HPV negative. Given history of JOHNATHAN III, she needs colposcopy, with poypectomies to clear the view of the entire transformation zone, biopsies, and endocervical curettage Confirmed Active History of migraine headaches Confirmed Active Hereditary spherocytosis s/p splenectomy 06/2017 Confirmed Active High-risk supervision Confirmed Active DNR- patient confirms 06/03/18, signed august 2017 Confirmed Active Obese class I Confirmed Active Gestational hypertension Confirmed Active Smoker Confirmed Active Vital Signs Most recent to oldest [Reference Range]: 1 Height 160 cm (12/12/23 1:23 PM) Weight 81.81 kg (12/12/23 1:23 PM) Body Mass Index [18.5-24.99 kg/m2] 31.96 kg/m2 *>HHI* (12/12/23 1:23 PM) Blood Pressure [90-138/55-84 mm Hg] 111/ 51mm Hg (12/12/23 1:23 PM) Blood pressure sites Arm, left (12/12/23 1:23 PM) Weight Obtained Via Standing scale (12/12/23 1:23 PM) Social History Social History Type Response Smoking Status Current every day sm oker; Type: Cigarettes; Other: Approximately 2 packs per day; Tobacco use times per day: 2ppd; entered on: 06/22/18 Sex Patient Care team information Care Team Personnel Name: Nicole Austin RN Position: S RN Member Role: Primary Care Nurse Name: Nora Coppola RN Position: S RN Member Role: Primary Care Nurse Name: Darby Huntley RN Position: S RN Member Role: Primary Care Nurse Name: Mark Yin RN Position: S RN Member Role: Primary Care Nurse Name: Linda Ibrhaim MD Position: [facility] Physician - Oncology Member Role: Lifetime Consulting Physician Address: Address: [address] [place] [address]- [place] Name: Carlos Enrique Owens RN Position: [facility] RN Member Role: Primary Care Nurse Name: Melinda Shirley RN Position: [facility] laundry housekeeper Member Role: Primary Care Nurse Name: Rhoda Pina MD Position: [facility] Outreach Member Role: PCP Address: Address: [address] [place] [address]- [place] Name: Amy Berger RN Position: [facility] RN Member Role: Primary Care Nurse Name: Juan Tariq RN Position: [facility] RN Member Role: Primary Care Nurse Name: Owen Benton RN Position: [facility] OB RN Member Role: Primary Care Nurse Name: Moni Esquivel RN Position: [facility] Outreach Member Role: Primary Care Nurse Name: Yahaira Sahni RN Position: [facility] RN Member Role: Primary Care Nurse Name: Adrianne Yusuf RN Position: [facility] RN Member Role: Primary Care Nurse Name: Gordy Rodas RN Position: [facility] SN RN Member Role: Primary Care Nurse Care Team Related Persons Name: EWA LEON Address: [employer] Address: home [address] [place] [address] [place] Address: temporary 0 Name: JOSE PIÑA Address: [place] [address] Name: PTSTATES, NONE
--- OUTSIDE RECORDS SUMMARY | 2024-09-10 16:01 | XMS_ITS | Continuity of Care Document ---
Author [facility] Address [address], [address] [place] [address]- Care Team Providers Care Sand Mixer Name Role Phone Rhoda Pina MD Primary Care Physician [id number] Date[facility] 12/14/23 - [facility]13[facility] [address], [address] [place] [address]- Allergies, Adverse Reactions, Alerts No Known Allergies [...] Refills, Soft Stop, 12/14/23 14:38:00 EST, Tablet, [facility], Partial fill upon patient request if the [...] Ordered folic acid 1 mg oral tablet 2 mg, 2, tablet, By Mouth, Daily, # 180 tablet, Refills 3, Tot. Refills 3, Maintenance, 01/09/24 11:56:00 EST, Route to Pharmacy Electronically, [facility], 160, cm, 01/03/24 13:34:00 EST, Height, 80.3, kg, 01/03/24 8:19:00 EST, Dry Weight Start Date: 01/09/24 Status: Ordered Gabapentin = 300 mg, By [...] opioid drug. Start Date: 12/21/21 Status: Ordered mirtazapine 7.5 mg oral tablet [...] Condition Confirmation Course Effective Dates Status H ealth Status Informant Adult ADHD Confirmed Active Anemia Confirmed Active Bipolar disease with depression/anxiety with suicide attempt in 11/2017 - psychiatrist Dr[facility] Narayan [facility] Confirmed Active JOHNATHAN 3 on biopsies from 10/06/16 at [place] 1:00 and 11:00. Was supposed to have [...] Gestational hypertension Confirmed Active Smoker Confirmed Active Social History Social History Type Response Smoking Status Current every day sm oker; Type: Cigarettes; Other: Approximately 2 packs per day; Tobacco use times per day: 2ppd; entered on: 06/22/18 Sex Patient Care team information Care Team Personnel Name: Nicole Austin RN Position: [facility] RN Member Role: Primary Care Nurse Name: Nora Coppola RN Position: [facility] RN Member Role: Primary Care Nurse Name: Darby Huntley RN Position: [facility] RN Member Role: Primary Care Nurse Name: Mark Yin RN Position: [facility] RN Member Role: Primary Care Nurse Name: Linda Ibrahim MD Position: [facility] Physician - Oncology Member Role: Lifetime Consulting Physician Address: Address: [address] [place] [address] [place] [address]- Name: Carlos Enrique Owens RN Position: [facility] RN Member Role: Primary Care Nurse Name: Melinda Shirley RN Position: [facility] offshore diver Member Role: Primary Care Nurse Name: Rhoda Pina MD Position: [facility] Outreach Member Role: PCP Address: Address: [address] [place] [address]- Name: Amy Berger RN Position: [facility] RN Member Role: Primary Care Nurse Name: Juan Tariq RN Position: [facility] RN Member Role: Primary Care Nurse Name: Owen Benton RN Position: [facility] OB RN Member Role: Primary Care Nurse Name: Moni Esquivel RN Position: [facility] Outreach Member Role: Primary Care Nurse Name: Yahaira Sahni RN Position: [facility] RN Member Role: Primary Care Nurse Name: Adrianne Ysuuf RN Position: [facility] RN Member Role: Primary Care Nurse Name: Corazon Rodas RNu Position: [facility] RN Member Role: Primary Care Nurse Care Team Related Persons Name: EWA LEON Address: [employer] Address: home [address] [place] [id number] Address: temporary 0 Name: JOSE PIÑA Address: [place] [address] Name: PTSTATES, NONE
--- OUTSIDE RECORDS SUMMARY | 2024-09-10 16:01 | XMS_ITS | Continuity of Care Document ---
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 Name Role Phone Rhoda Pina MD Primary Care Physician [place] [facility] [place]): [place] 10/19/[address] [address]- Discharge Disposition: A-D/C Home Attending Physician: Johnson Shook MD, I Admitting Physician: Johnson Shook MD, I Referring Physician: Johnson Shook MD, I Allergies, Adverse Reactions, Alerts No Known Allergies Immunizations Given and Recorded Vaccine Date Status Refusal Reason haemophilus b conjugate (PRP-T) vaccine 06/22/17 G iven pneumococcal 23-valent vaccine 1 06/22/17 Given Meningococcal Conjugate Vaccine 2 06/22/17 Given 1Result Comment: given anterior deltoid 2Result Comment: given posterior deltoid Medications acetaminophen 325 mg oral tablet 975 mg, Tablet, By Mouth, 10/19/23 9:00:00 EST Start Date: 10/19/23 Stop Date: 10/19/23 Status: Completed Adderall 30 mg oral tablet 1 tablet [...] opioid drug. Start Date: 10/14/23 Status: Ordered Escitalopram = 15 mg, By [...] 10/12/23 16:49:00 EST, Route to Pharmacy Electronically, [facility], 160, cm, 12/21/21 10:36:00 EST, Height, 95.2, kg, 12/21/21 10:36:00 EST, Dry Weight Start Date: 10/12/23 Status: Ordered Gabapentin = 300 mg, By Mouth, 2 times a day, 0 Refills, Maintenance, 11/11/17 15:20:14 EST Start Date: 11/11/17 Status: Ordered gabapentin 300 mg oral capsule 300 mg, Capsule, By Mouth, 10/19/23 9:00:00 EST Start Date: 10/19/23 Stop Date: 10/19/23 Status: Completed KlonoPIN 1 mg oral tablet 1 tablet [...] opioid drug. Start Date: 10/13/23 Status: Ordered oxyCODONE 5 mg oral tablet 5 mg, 1, tablet, By Mouth, Every 6 hours, PRN, for 1 days, # 3 tablet, Refills 0, Tot. Refills 0, Acute 10/20/23 11:45:00 EST, as needed for pain, 10/19/23 11:45:00 EST, Route to Pharmacy Electronically, [facility], Partial fill upon pat... Start Date: 10/19/23 Stop Date: 10/20/23 Status: Ordered oxyCODONE 5 mg oral tablet 5 mg, Tablet, By Mouth, Every 4 hours, PRN for Pain , Moderate, Routine, 10/18/23 18:22:00 EST Start Date: 10/18/23 Stop Date: 10/19/23 Status: Discontinued ProAir RespiClick 90 mcg/inh inhalation powder 2 [...] opioid drug. Start Date: 10/14/23 Status: Ordered Toradol Inj 15 mg, Injection, IV Push Slowly, 10/19/23 9:00:00 EST, Stop date 10/19/23 9:00:00 EST Start Date: 10/19/23 Stop Date: 10/19/23 Status: Completed traMADol 50 mg oral tablet = 100 mg, By Mouth, Every 6 hours, PRN Pain , Moderate, for 5 days, # 40 tablet, 0 Refills, Acute 10/24/23 11:08:00 EST, 10/19/23 11:08:00 EST, Tablet, [facility], Partial fill upon patient request if the prescription is for a schedule I... Start Date: 10/19/23 Stop Date: 10/24/23 Status: Ordered traZODone 50 mg oral tablet [...] in 11/2017 - psychiatrist Dr. Narayan at [facility] Confirmed Active JOHNATHAN 3 on biopsies from 10/06/16 at [place] 1:00 and 11:00. Was supposed to have [...] Most recent to oldest [Reference Range]: 1 2 3 4 Height 160 cm (10/19/23 7:21 AM) 160 cm (10/19/23 4:32 AM) 160 cm (10/18/23 7:53 PM) Weight 82 kg (10/17/23 11:15 AM) 82 kg (10/13/23 1:29 PM) Oxygen Saturation [94-100 %] 95 % (10/19/23 7:21 AM) 95 % (10/19/23 4:32 AM) 97 % (10/18/23 7:53 PM) Pulse Rate [55-90 bpm] 69 bpm (10/19/23 7:21 AM) 77 bpm (10/19/23 4:32 AM) 72 bpm (10/18/23 7:53 PM) Body Mass Index [18.5-24.99 kg/m2] 32.03 kg/m2 *>HHI* (10/17/23 11:15 AM) 32.03 kg/m2 *>HHI* (10/13/23 1:29 PM) Blood Pressure [90-138/55-84 mm Hg] 99/58mm Hg (10/19/23 7:21 AM) 109/57mm Hg (10/19/23 4:32 AM) 113/68mm Hg (10/18/23 7:53 PM) Respiratory Rate [16-30 br/min] 18 br/min (10/19/23 10:56 AM) 18 br/min (10/19/23 10:26 AM) 17 br/min (10/19/23 8:25 AM) 17 br/min (10/19/23 8:25 AM) Temperature [96.8-100.4 DegF] 99.0 DegF (10/19/23 7:21 AM) 97.7 DegF (10/19/23 4:32 AM) 97.4 DegF (10/18/23 7:53 PM) Liters per Minute 2 L/min (10/18/23 3:00 AM) 2 L/min (10/17/23 11:00 PM) 2 L/min (10/17/23 7:00 PM) Mode of Delivery (Oxygen) Room air (10/19/23 7:21 AM) Room air (10/19/23 4:32 AM) Room air (10/18/23 7:53 PM) Blood pressure sites Arm, left (10/19/23 4:32 AM) Arm, right (10/18/23 7:53 PM) Arm, left (10/18/23 3:00 AM) Temperature Route Oral (10/19/23 7:21 AM) Oral (10/19/23 4:32 AM) Oral (10/18/23 7:53 PM) Dry Weight 79.9 kg (10/17/23 11:15 AM) 82 kg (10/13/23 1:29 PM) Weight Obtained Via Patient/family stated (10/13/23 1:29 PM) Dry Weight Obtained Via Standing scale (10/17/23 11:15 AM) Patient/family stated (10/13/23 1:29 PM) Social History Social History Type Response Smoking Status Current every day sm oker; Type: Cigarettes; Other: Approximately 2 packs per day; Tobacco use times per day: 2ppd; entered on: 06/22/18 Sex History and physical note * Event Display: History and Physical Hospital Authored Date: * Event Display: History and Physical Hospital Authored Date: Cardiology * Event Display: Cardiac Rhythm Strips Authored Date: Hospital Progress note * Rosemarie Brooks RN: PERFORM, SIGN, VERIFY, SIGN, SIGN, MODIFY, MODIFY Event Display: Progress Note Hospital Authored Date: Patient: TAMMY LERMA Age: 38 years Sex: Female : 1985 Associated Diagnoses: None Author: Rosemarie Brooks RN Findings Problem Related to Alteration in Comfort 10/19/2023 8:00 EST Alteration in Comfort Related to Surgery Goals & Outcomes: Comfort Pt will report acceptable level of comfort & pain control, Pt will state importance of adhering to pain strategy regime, Pt will demonstrate necessary skills to manage pain, Non-verbal indicators will indicate comfort/pain control Interventions Implemented: Comfort Assess pain using appropriate pain scale/tools, Assess aggravating factors & prevent them accordingly, Assess alleviating factors & promote them accordingly BH Goals/Interventions, Comfort Yes Comfort, Problem Start 10/18/2023 11:42 Reviewed plan with, Comfort Patient Patient Progression, Comfort Pt progressing according to plan Comfort, Problem Ongoing Yes . Alteration in Gastrointestinal : Alteration in Gastrointestinal Func/new 10/19/2023 8:00 EST Alteration in GI status Related to Abdominal Surgery, Other: paraesophageal hernia repair, bianca fundoplication and open imbilical hernia repair Goals & Outcomes, Gastrointestinal Establish a regular pattern of elimination for pt, Nutritional intake is adequate for metabolic needs, Pt will achieve normal/improved fluid balance, Pt will have a bowel movement prior to discharge, Pt will maintain adequate GI function appropriate for pt, Ptwill maintain normal elimination patterns, Pt will resume/maintain adequate hemodynamic status, Pt w ill tolerate age appropriate diet prior to discharge, Pt will experience progressive wound healing,Pt will not experience s/s of infection prior to discharge Interventions, Gastrointestinal Assess/monitor abdomen for distention, tenderness, Assess/monitor abdominal girth & bowel function, Assess/monitor bowel pattern, bowel sounds, flatus, Assess/monitor number of bowel movements, Assess/monitor color, quantity, quality, consistency of stoo, Assess/monitor pt for nausea, vomiting, Assess/monitor intake & output, Assess if pt tolerating diet, DVT prophylaxis as ordered, Establish toileting schedule for patient, Teach Pt/caregiver re: importance of bowel regime, Teach Pt/caregiver re: nutritional intake & dietary restrict, Teach/encourage deep breath & cough exercises, Teach/encourage use of incentive spirometer Goals/Interventions, Gastrointestinal Yes Gastrointestinal, Problem Start 10/18/2023 6:34 Reviewed plan with, Gastrointestinal Patient Patient Progression, Gastrointestinal Pt progressing according to plan . Nursing Data Vital Signs : VITAL SIGNS SECTION 10/19/2023 7:21 EST Early Warning Score 6.00 10/19/2023 7:21 EST Temperature 99.0 DegF Temperature Route Oral Pulse Rate 69 bpm Respiratory Rate 19 br/min Systolic Blood Pressure 99 mm Hg Diastolic Blood Pressure 58 mm Hg Mean Arterial Pressure 72 mm Hg Pulse Pressure 41 mm Hg Oxygen Saturation 95 % Mode of Delivery (Oxygen) Room air 10/19/2023 4:58 EST Early Warning Score 7.00 10/19/2023 4:57 EST Early Warning Score 7.00 10/19/2023 4:57 EST Early Warning Score 7.00 10/19/2023 4:33 EST Early Warning Score 7.00 10/19/2023 4:32 EST Temperature 97.7 DegF Temperature Route Oral Pulse Rate 77 bpm Respiratory Rate 18 br/min Respiratory Rate 16 br/min Systolic Blood Pressure 109 mm Hg Diastolic Blood Pressure 57 mm Hg Blood pressure sites Arm, left Mean Arterial Pressure 74 mm Hg Pulse Pressure 52 mm Hg Oxygen Saturation 95 % Mode of Delivery (Oxygen) Room air 10/19/2023 4:02 EST Respiratory Rate 16 br/min 10/19/2023 3:08 EST Respiratory Rate 16 br/min 10/19/2023 2:09 EST Early Warning Score 5.00 10/19/2023 2:08 EST Respiratory Rate 16 br/min 10/19/2023 0:59 EST Early Warning Score 5.00 10/19/2023 0:56 EST Early Warning Score 5.00 10/19/2023 0:56 EST Early Warning Score 5.00 10/19/2023 0:56 EST Early Warning Score 5.00 10/18/2023 21:43 EST Respiratory Rate 16 br/min 10/18/2023 21:13 EST Respiratory Rate 16 br/min 10/18/2023 20:17 EST Respiratory Rate 16 br/min 10/18/2023 20:16 EST Respiratory Rate 16 br/min 10/18/2023 19:54 EST Early Warning Score 5.00 10/18/2023 19:53 EST Temperature 97.4 DegF Temperature Route Oral Pulse Rate 72 bpm Respiratory Rate 18 br/min Systolic Blood Pressure 113 mm Hg Diastolic Blood Pressure 68 mm Hg Blood pressure sites Arm, right Mean Arterial Pressure 83 mm Hg Pulse Pressure 45 mm Hg Oxygen Saturation 97 % Mode of Delivery (Oxygen) Room air . Narrative/Incidental 38 year old female POD#2. [address] with steristrips,dry and intact. Abd rounded, tenderto lower quadrants. Patient receiving scheduled tylenol and PRN oxycodone 5 mg q4h for pain management. Active bowel sounds. LBM 10/19, entirely liquid. Denies N/V/D. Scheduled zofran IV q6h preventatively. Patient A&Ox3. Lungs diminished with expiratory wheezing noted throughout. Denies chest pain and SOB. On RA. Nonproductive cough noted on exam. Not on telemetry. Diet advanced from full liquid diet to dental soft. Shay D/Rosendo 10/18 and patient is voiding CYU in the bathroom. IVF D/Rosendo per provider d/t tolerating PO intake. Patient ad-kaci in the room and ambulated independently in the hallway. Patient refused lovenox this AM, patient educated on importance for DVT prophylaxis, patientcontinued to refused. Call light and personal belongings within reach of patient. . Evaluation P: alteration in gastrointestinal function I: see care plan above for current interventions E: 38 year old female POD#2. [address] with steristrips,dry and intact. Abd rounded, tender to lower quadrants. Patient receiving scheduled tylenol and PRN oxycodone 5 mg q4h for pain management. Active bowel sounds. LBM 10/19, entirely liquid. Denies N/V/D. Scheduled zofran IV q6h preventatively. Diet advanced from full liquid diet to dental soft. IVF D/Rosendo per provider d/t toleratingPO intake.. * Rosemarie Brooks RN: PERFORM Event Display: Progress Note Hospital Authored Date: Patient tolerating dental soft diet and OK for D/C home per MD. * Rosemarie Brooks RN: PERFORM Event Display: Progress Note Hospital Authored Date: AM labs to be drawn. * Tammy Santos RN: PERFORM, SIGN, VERIFY Event Display: Progress Note Hospital Authored Date: Patient: TAMMY LERMA Age: 38 years Sex: Female : 1985 Associated Diagnoses: None Author: Tammy Santos RN Findings Problem Related to Alteration in Comfort : Alteration in Comfort/new 10/19/2023 1:00 EST Alteration in Comfort Related to Surgery Goals & Outcomes: Comfort Pt will report acceptable level of comfort & pain control, Pt will state importance of adhering to pain strategy regime, Pt will demonstrate necessary skills to manage pain, Non-verbal indicators will indicate comfort/pain control Interventions Implemented: Comfort Assess pain using appropriate pain scale/tools, Assess aggravating factors & prevent them accordingly, Assess alleviating factors & promote them accordingly BH Goals/Interventions, Comfort Yes Comfort, Problem Start 10/18/2023 11:42 Reviewed plan with, Comfort Patient Patient Progression, Comfort Pt progressing according to plan Comfort, Problem Ongoing Yes . Alteration in Gastrointestinal : Alteration in Gastrointestinal Func/new 10/19/2023 1:00 EST Alteration in GI status Related to Abdominal Surgery, Other: paraesophageal hernia repair, bianca fundoplication and open imbilical hernia repair Goals & Outcomes, Gastrointestinal Establish a regular pattern of elimination for pt, Nutritional intake is adequate for metabolic needs, Pt will achieve normal/improved fluid balance, Pt will have a bowel movement prior to discharge, Pt will maintain adequate GI function appropriate for pt, Ptwill maintain normal elimination patterns, Pt will resume/maintain adequate hemodynamic status, Pt w ill tolerate age appropriate diet prior to discharge, Pt will experience progressive wound healing,Pt will not experience s/s of infection prior to discharge Interventions, Gastrointestinal Assess/monitor abdomen for distention, tenderness, Assess/monitor number of bowel movements, Assess/monitor color, quantity, quality, consistency of stoo, Assess/monitor pt for nausea, vomiting, Assess/monitor intake & output, Assess if pt tolerating diet, DVT prophylaxis as ordered, Elevate HOB to facilitate lung expansion, prevent aspiration, Teach/encourage deep breath & cough exercises, Teach/encourage use of incentive spirometer, Incision care as ordered, Teach pt to splint incision when coughing BH Goals/Interventions, Gastrointestinal Yes Gastrointestinal, Problem Start 10/18/2023 6:34 Reviewed plan with, Gastrointestinal Patient Patient Progression, Gastrointestinal Pt progressing according to plan . Nursing Data Cardiac Data. : Cardiac Data. 10/18/2023 19:03 EST Cardiovascular WNL . Gastrointestinal Data. : Gastrointestinal Data. 10/18/2023 19:03 EST Abdomen Tender LLQ Tenderness At rest LUQ Tenderness At rest RLQ Tenderness At rest RUQ Tenderness At rest Bowel Sounds LUQ Present Bowel Sounds RUQ Hypoactive Bowel Sounds LLQ Present Bowel Sounds RLQ Hypoactive Last Bowel Movement 10/17/2023 GI WNL except . Genitourinary Data. : Genitourinary Data. 10/18/2023 19:03 EST WNL . HEENT Data. : HEENT Assessment 10/18/2023 19:03 EST HEENT, Adult WNL . Integumentary Data. : Integumentary Data. 10/18/2023 19:04 EST Integumentary WNL except Abdomen Skin Abnormality Type: Surgical incision Wound Assessment Activity: Reassessment Surgical Incision Detailed Assessment: Yes Incision Surgical Detail: Unable to visualize Incision Number of Sites: 6 Wound Dressing: Band-Aid Wound Dressing Assessment: Clean, Dry, Intact Wound Dressing Activity: Intact Wound Surrounding Tissue: Normal . Musculoskeletal Data. : Musculoskeletal Data. 10/18/2023 19:03 EST Musculoskeletal WNL . Neurological Data. : Neurological Data. 10/18/2023 19:17 EST Pain Intensity 8 . Patient Care Data. : Patient Care Data. 10/18/2023 19:04 EST Turn and Reposition Able to change own position Sequential Compression Device Patient independently ambulating TEDS Not indicated/Not ordered ID band on Yes Allergy band in place/verified N/A Blood Pressure/Venipuncture Both arms may be used Call Richardson in Reach-Ensure Ability to Use Yes Patient Instructed on Use of Call Richardson Yes Standard Safety Bed in low position, Night light, Non-slip footwear, Upper/Half- length side-rails up, Wheels locked Pt Ed-Learning: Person Taught Patient Pt Ed-Learning: Learning Readiness Yes, alert and oriented Pt Ed-Learning: Learning Barriers None Pt Ed-Learning: Learning Style Verbal Fall Elimination No impairment Fall Agitation/Anxiety/Depression No impairment Fall Related Sign/Symptom/Condition None Fall Cognitive Limitations No impairment Fall Sensory and Physical Function No impairment Fall High Risk for Injury On Coumadin, IV Heparin, or Lovenox Total Falls Risk Score 3 Fall Risk Level Low Risk Falls Prevention Plan for Low Risk Bed in lowest locked position, Provide patient/family falls prevention education, Evaluate footwear & ensure patient has non-skid slippers, Place personal care items & call richardson within reach, Supervise the patient when ambulating or making transfers, Checkthat needs are met to minimize attempts to get up, Hourly rounds, Ensure safe & uncluttered environment, Communicate falls risk to all providers . Respiratory/Pulmonary Data. : Respiratory/Pulmonary Data. 10/18/2023 19:03 EST Respiratory Symptoms None Respiratory effort Unlabored Cough Non-productive, Occasional Respiratory pattern Regular Left Upper Lobe Breath Sounds Rhonchi, Wheezing, expiratory Right Upper Lobe Breath Sounds Rhonchi, Wheezing, expiratory Right Middle Lobe Breath Sounds Rhonchi, Wheezing, expiratory Left Lower Lobe Breath Sounds Rhonchi, Wheezing, expiratory Right Lower Lobe Breath Sounds Rhonchi, Wheezing, expiratory Respiratory distress None Respiratory Treatment(s) Cough and deep breathe, Incentive spirometry Respiratory WNL except . Vital Signs : VITAL SIGNS SECTION 10/18/2023 19:53 EST Temperature 97.4 DegF Temperature Route Oral Pulse Rate 72 bpm Respiratory Rate 18 br/min Systolic Blood Pressure 113 mm Hg Diastolic Blood Pressure 68 mm Hg Blood pressure sites Arm, right Mean Arterial Pressure 83 mm Hg Pulse Pressure 45 mm Hg Oxygen Saturation 97 % Mode of Delivery (Oxygen) Room air . Pain Data : PAIN SECTION 10/18/2023 19:03 EST Pain Location Abdomen, left lower, Abdomen, left upper, Abdomen, right lower, Abdomen, right upper Pain Intensity 8 1 - 10 Pain Scale Score 8 Pain relief acceptable Yes . Evaluation Open umbilical hernia repair,bianca fundoplication,patient is alert and oriented x4,LS rhonchi withfine expiratory wheezing,occasional non productive cough,no SOB,encouraged use of IS,abdomen tender,(+) BS,5 lapsites and umbilical incision with bandaids intact,pain 8/10,scheduled tylenol and IV ketorolac and PRN oxy IR given with (+) effect,no c/o nausea/vomiting,tolerating full liquid diet,on sc heduled IV zofran,voiding yellow urine,last BM 10/17,both legs (+) CMS,(+) PP,OOB with supervision,call richardson within reach.. * Rosemarie Brooks RN: SIGN, PERFORM, SIGN, VERIFY, MODIFY, SIGN, MODIFY Event Display: Progress Note Hospital Authored Date: [id number] Patient: TAMMY LERMA Age: 38 years Sex: Female : 1985 Associated Diagnoses: None Author: Rosemarie Brooks RN Findings Problem Related to Alteration in Comfort 10/18/2023 11:00 EST Alteration in Comfort Related to Surgery Goals & Outcomes: Comfort Pt will report acceptable level of comfort & pain control, Pt will state importance of adhering to pain strategy regime, Pt will demonstrate necessary skills to manage pain, Non-verbal indicators will indicate comfort/pain control Interventions Implemented: Comfort Assess pain using appropriate pain scale/tools, Assess aggravating factors & prevent them accordingly, Assess alleviating factors & promote them accordingly Goals/Interventions, Comfort Yes Comfort, Problem Start 10/18/2023 11:42 Reviewed plan with, Comfort Patient Patient Progression, Comfort Plan Initiation Comfort, Problem Ongoing Yes . Alteration in Gastrointestinal : Alteration in Gastrointestinal Func/new 10/18/2023 11:00 EST Alteration in GI status Related to Other: paraesophageal hernia repair, nissenfundoplication and open imbilical hernia repair Goals & Outcomes, Gastrointestinal Establish a regular pattern of elimination for pt, Nutritional intake is adequate for metabolic needs, Pt will achieve normal/improved fluid balance, Pt will have a bowel movement prior to discharge, Pt will maintain adequate GI function appropriate for pt, Ptwill maintain normal elimination patterns, Pt will resume/maintain adequate hemodynamic status, Pt w ill tolerate age appropriate diet prior to discharge, Pt will experience progressive wound healing,Pt will not experience s/s of infection prior to discharge Interventions, Gastrointestinal Assess/monitor abdomen for distention, tenderness, Assess/monitor abdominal girth & bowel function, Assess/monitor bowel pattern, bowel sounds, flatus, Assess/monitor number of bowel movements, Assess/monitor color, quantity, quality, consistency of stoo, Assess/monitor pt for nausea, vomiting, Assess/monitor effects of re-hydration, Assess/monitor intake &output, Assess if pt tolerating diet, DVT prophylaxis as ordered, Teach Pt/caregiver diet & give copy of dietary instructions, Teach Pt/caregiver on bowel elimination interventions, Teach Pt/caregiver re: importance of bowel regime, Teach Pt/caregiver re: nutritional intake & dietary restrict, Teach/encourage deep breath & cough exercises, Teach/encourage use of incentive spirometer Goals/Interventions, Gastrointestinal Yes Gastrointestinal, Problem Start 10/18/2023 6:34 Reviewed plan with, Gastrointestinal Patient Patient Progression, Gastrointestinal Pt progressing according to plan . Nursing Data Vital Signs : VITAL SIGNS SECTION 10/18/2023 7:17 EST Temperature 99.1 DegF Temperature Route Oral Pulse Rate 85 bpm Respiratory Rate 19 br/min Systolic Blood Pressure 105 mm Hg Diastolic Blood Pressure 66 mm Hg Mean Arterial Pressure 79 mm Hg Pulse Pressure 39 mm Hg Oxygen Saturation 95 % Mode of Delivery (Oxygen) Room air 10/18/2023 4:12 EST Respiratory Rate Not Done: Patient Sleeping (Not Done) 10/18/2023 3:16 EST Early Warning Score 3.00 10/18/2023 3:16 EST Oxygen Saturation 96 % Mode of Delivery (Oxygen) Room air 10/18/2023 3:15 EST Early Warning Score 3.00 Early Warning Score 3.00 10/18/2023 3:09 EST Early Warning Score 3.00 10/18/2023 3:00 EST Temperature 98.1 DegF Temperature Route Oral Pulse Rate 66 bpm Respiratory Rate 16 br/min Systolic Blood Pressure 117 mm Hg Diastolic Blood Pressure 60 mm Hg Blood pressure sites Arm, left Oxygen Saturation 99 % Liters per Minute 2 L/min Mode of Delivery (Oxygen) Nasal cannula . Narrative/Incidental 38 year old female POD#1. [address] with bandages, C/D/I. Abd rounded, tender to lower quadrants. Hypoactive bowel sounds. LBM 12/10. Denies V/D. Nausea noted for which patient takes scheduled zofran IV q6h. Patient A&Ox3. Lungs clear, diminished at the bases. Denies chest pain and SOB. On RA. Nonproductive cough noted on exam. Not on telemetry. On clear liquid diet, tolerating well. IVF in place. Single lumen shay D/Rosendo at 1030. Patient DTV at 1630. SCDs to bilateral lower extremeties for DVT prophylaxis. Patient refused lovenox shot this AM, patient educated on importance for DVT prophylaxis, patient continued to refused. Call light and personal belongings within reach of patient. Patient educated to not get OOB without assistance. Patient verbalizes understanding. . Evaluation P: alteration in gastrointestinal function I: see care plan above for current interventions E: 38 year old female POD#1. [address] with bandages, C/D/I. Abd rounded, tender to lower quadrants. Hypoactive bowel sounds. LBM 12/10. Denies V/D. Nausea noted for which patient takes scheduled zofran IV q6h. On clear liquid diet, tolerating well. IVF in place. . * Rosemarie Brooks RN: PERFORM Event Display: Progress Note Hospital Authored Date: Diet advanced to full liquid diet.. * Rosemarie Brooks RN: PERFORM Event Display: Progress Note Hospital Authored Date: Patient voided with a PVR of 0 cc. Ambulating ad-kaci.. Note * Adrianne Yusuf RN: PERFORM Event Display: Discharge/Transfer Note Hospital Authored Date: Nursing Discharge Note Entered On: 10/19/2023 11:20 EST Performed On: 10/19/2023 11:20 EST by Adrianne Yusuf RN Nursing Discharge Note 2 Discharge Time : 10/19/2023 13:20 EST Adrianne Yusuf RN - 10/19/2023 14:03 EST Discharge Level of Care at Discharge : Home/Penitentiary/Foster Care Patient Left Unit Via : Wheelchair Patient Accompanied Off Unit with : Responsible adult, Other: STAFF DC Instructions Provided & Signed by Pt : Yes Patient Understands D/C Instructions : Yes Patient Instructions Discharge Signed : Yes Did Pt have Specialty Bed or Wound Vac : No Paramjit BURROUGHS, Adrianne - 10/19/2023 11:20 EST * Jayashree SIDDIQUI, Hugo: PERFORM Event Display: Discharge/Transfer Note Hospital Authored Date: [id number] Patient: ??TAMMY LERMA ? Age:??38 Years?Sex:??Female?:??1985?? Admit Date Admission Date: 10/17/2023 Discharge Date 10/19/2023 Discharge Diagnoses GERD (gastroesophageal reflux disease), 10/18/2023 Hospital Course Tammy is a 38-year-old female with past medical history of hereditary spherocytosis status post splenectomy, asthma, COPD, bipolar disorder, chronic anxiety, migraines, and refractory GERD who underwent appropriate preoperative workup and underwent laparoscopic??paraesophageal hernia repair withNissen fundoplication and umbilical hernia repair??with Dr. Shook on 10/17/2023.?? She tolerated the procedure well and is recovering as expected postoperatively.?She had return of bowel function on 10/18. ??Her diet was advanced from a clear liquid diet to a dental soft diet which she was tolerating well. ??On day of discharge she was??tolerating diet, ambulating, passing gas, having bowel movements.?She was discharged with prescriptions for??tramadol.?? She is due to follow-up in clinic??in 2 weeks. ??She will continue her dental soft diet during this time. Objective/Physical Exam on Day of Discharge Vitals & Measurements T:??99.0?F?? HR:??69??(Peripheral)?? RR:??18?? BP:??99/58?? SpO2:??95%?? HT:??160??cm?? WT:??82??kg?? BMI:??32.03?? General:??Alert, in no acute cardiopulmonary distress. Mental Status:??Oriented to person, place and time. Normal affect. Head:??Normocephalic. Eyes:??Extraocular muscles intact. Ear, Nose and Throat:??Oropharynx clear, mucous membranes moist. Ears and nose without masses, lesions or deformities. Neck:??Supple, Full range of motion. Respiratory:??Nonlabored breathing??on 2 L nasal cannula Cardiovascular:??Regular rate and rhythm Gastrointestinal:??Abdomen soft, non-tender, non-distended.?Laparoscopic port sites are clean, dry, intact with overlying??Steri-Strips. :??Shay catheter in place draining clear yellow urine Neurologic:??No focal neurological deficits. Moves all extremities spontaneously. Sensation intact bilaterally. Skin:??No rashes or lesions. No petechiae or purpura. No edema. Musculoskeletal:??No cyanosis or clubbing. No gross deformities. Normal range of motion.?? Future Appointments Tuesday 1:00 PM EST ?? With: Hannah Sargent Where: [facility] [address] [place] [address]- Status: Pending Home Health Face to Face ^HomeHealthFTF Procedures Performed This Visit Bianca Fundoplication Laparoscopic Repair Hernia Umbilical Open Repair Hernia Paraesophageal Laparoscopi Discharge Medications Albuterol (albuterol 0.021% inhalation solution)?3?Milliliter?0.63?Milligram?Neb?Every 4 hours?as needed?Wheezing/Shortness of Breath Albuterol (ProAir RespiClick 90 mcg/inh inhalation powder)?2?puff(s)?Inhalation?Every 4hours?as needed?Wheezing/Shortness of Breath Amphetamine-Dextroamphetamine (Adderall 30 mg oral tablet)?1?tab(s)?30?Milligram?By Mouth?Daily in AM Budesonide (Pulmicort Flexhaler 90 mcg)?180?Microgram?Inhalation?2 times a day Calcium And Vitamin D Combination (calcium (as carbonate)-vitamin D 500 mg-100 intl units oral tablet, chewable)?2?tab(s)?Daily cariprazine (Vraylar 6 mg oral capsule)?1?capsule?6?Milligram?By Mouth?Daily Celecoxib (CeleBREX 50 mg oral capsule)?1?capsule?50?Milligram?By Mouth?Daily in AM Cholecalciferol (Vitamin D3 1000 intl units oral capsule)?1?capsule?25?Microgram?By Mouth?Daily Clonazepam (KlonoPIN 1 mg oral tablet)?1?tab(s)?1?Milligram?By Mouth?3 times a day Clonidine (cloNIDine 0.1 mg oral tablet)?0.1?Milligram?1?tablet?By Mouth?3 times a day Docusate (Colace sodium 100 mg oral capsule)?200?Milligram?2?capsule?By Mouth?Daily?as needed?as needed for constipation Escitalopram?15?Milligram?By Mouth?Daily Esomeprazole (Nexium Capsule)?40?Milligram?By Mouth?Daily in AM Ferrous Gluconate (ferrous gluconate 324 mg oral tablet)?1?tab(s)?324?Milligram?By Mouth?Daily Folic Acid (folic acid 1 mg oral tablet)?1?tablet?By Mouth?Daily Gabapentin?300?Milligram?By Mouth?2 times a day Lamotrigine (lamotrigine 100 mg oral tablet)?100?Milligram?1?tablet?By Mouth?Daily Bantry (lithium 450 mg oral tablet, extended release)?1?tab(s)?450?Milligram?By Mouth?2 times a day Loratadine (Claritin 10 mg oral tablet)?10?Milligram?1?tablet?By Mouth?Daily mirabegron (Myrbetriq 50 mg oral tablet, extended release)?1?tab(s)?50?Milligram?By Mouth?Daily?do not crush or chew Mirtazapine (mirtazapine 7.5 mg oral tablet)?2?tab(s)?15?Milligram?By Mouth?Dailyat bedtime Simvastatin (Zocor 20 mg oral tablet)?20?Milligram?1?tablet?By Mouth?Daily beforedinner Tramadol (traMADol 50 mg oral tablet)?100?Milligram?By Mouth?Every 6 hours?as needed?Pain , Moderate?for 5?Days Trazodone (traZODone 50 mg oral tablet)?50?Milligram?1?tablet?By Mouth?Daily at bedtime?as needed?Other Labs Last 24 Hours No qualifying data available. Patient Education Titles Diet-Soft?? Follow-Up Appointments Added Follow Up ?Time Frame ?Comments Johnson Shook?2 to 3 weeks?Please call to confirm your follow up appointment time Rhoda Pina Patient Instructions Discharge Instructions? If you develop fever, chills, increased pain, nausea, vomiting, bleeding, or increased redness or pus around the wound please call the surgery office at . A narcotic was prescribed to help reduce your pain. Take only as needed for your pain; you may choose to fill the prescription in a lesser amount. When taking opioids, there is an increase chance of abuse and/or overdose. Other side effects/complications include nausea, vomiting, difficulty breathing, sedation and constipation. A stool softener was also prescribed to help prevent constipation. Please take medications as prescribed and do not drive while on narcotic medications. Refer to handout for more information. ?? You may continue to take Tylenol 1000mg every 6 hours alternating with ibuprofen 400mg every 6hours. Please remember to continue your esomeprazole.? Please continue a??soft diet??until your follow up? Incisions are closed with absorbable sutures and overlying Steri-strips.??Please leave Steri-stripsin place as they will fall off overtime.? If you have any questions, please call the surgery office at ?? Please call your Primary Care Provider within 1 week for post hospital follow up and review of yourmedications. ?? Activity Instructions ?? -No heavy lifting >10 lbs -Increase activity as tolerated -Encourage coughing and deep breathing, use of incentive spirometer -No tub baths until incision(s) has/have healed -May shower 48 hours after surgery -No driving until off narcotics and cleared by Surgery?? * Adrianne Yusuf RN: PERFORM Event Display: Patient Education/Instruction Authored Date: [id number] Inpatient Adult Discharge Instructions [address] [address] Name: TAMMY MORAQUINTIN : 1985 Visit: 10/17/2023 10:05:00 Current Date: 10/19/2023 11:21 Account: [id number] Inpatient Adult Discharge Instructions We would like to thank you for allowing us to assist you with your healthcare needs. The following includes patient education materials and information regarding your injury/illness. Our entire staffstrives to provide an excellent experience for our patients and their families. PLEASE ENSURE YOU FOLLOW-UP PER THE INSTRUCTIONS BELOW! ?? YOUR OPINION IS IMPORTANT TO US! Please complete the survey you may receive by mail or email. Your feedback will be used to make improvements to the healthcare experiences of our patients and their families. Surveys are administered by [employer]. ?? If further treatment with your primary care physician or another doctor is recommended, it is important for you to keep the appointment. Call your primary care physician or return to the Emergency Department immediately if your condition worsens, fails to improve, or new symptoms develop. If you need to find a doctor, you can call [facility] beqom for a referral at [phone] or toll free at [phone] or log in to [email or web address].. ?? [facility], in keeping with [facility] guidance, no longer requires face masks for staff, patientsor visitors in most situations. Similiar to time spent indoors at other locations, there is the chance that you were exposed to repiratory viruses during your time with us (such as flu or COVID-19). If you develop symptoms concerning for a viral respiratory infection, please seek testing (and treatment if indicated) from your medical provider or home test kit. ?? You can view and manage your care through the patient portal or by using a health care bert of your choosing. [employer] is a website that allows you to securely view your medical information including your hospital discharge summary, office visit summaries, medications and follow-up visits. You can also request appointments, renew medications, and request access to your medical information using a health care bert of your choosing, or just ask a question. You can enroll at [email or web address] or register during your next office visit. You have been discharged from [facility], Patient Care Unit: SW7. If you have any questions regarding these instructions after you leave, please call us and we will be happy to assist you. [facility] Your Care Team Attending Physician Boone SIDDIQUI, Johnson Leon Consulting Providers Johnson Shook MD, I Discharging Providers Hugo Blanc MD Reason for Admission HIATAL HERNIA LAP NISSENFUNDOPLICATION CELINA Your Diagnosis GERD (gastroesophageal reflux disease) Tests Performed Below is a partial list of the tests performed during your hospitalization. You may have had other tests and procedures not included in this list. Please discuss all test results with your provider. Primary Care Provider Rhoda Pina MD Advance Directive Health Care Proxy on File Yes - MOLST Discharge Vitals Temperature: 99 DegF Height: 160 cm Pulse Rate: 69 bpm Weight: 82 kg Respiratory Rate: 18 br/min Body Mass Index:??32.03 kg/m2??Critical Systolic Blood Pressure: 99 mm Hg Body surface area: 1.91 Diastolic Blood Pressure: 58 mm Hg ?? Oxygen Saturation: 95 % ?? Studies Pending All tests and labs ordered during this hospital stay have been completed unless listed below. Please discuss all pending results with your provider listed above in these instructions. ?? BUN CBC w/ Differential Creatinine Electrolytes (Lytes) Ionized Calcium Magnesium Level Pathology Tissue Request () Phosphorus Level What to do next Instructions From Your Doctor Discharge Instructions? If you develop fever, chills, increased pain, nausea, vomiting, bleeding, or increased redness or pus around the wound please call the surgery office at . A narcotic was prescribed to help reduce your pain. Take only as needed for your pain; you may choose to fill the prescription in a lesser amount. When taking opioids, there is an increase chance of abuse and/or overdose. Other side effects/complications include nausea, vomiting, difficulty breathing, sedation and constipation. A stool softener was also prescribed to help prevent constipation. Please take medications as prescribed and do not drive while on narcotic medications. Refer to handout for more information. ?? You may continue to take Tylenol 1000mg every 6 hours alternating with ibuprofen 400mg every 6hours. Please remember to continue your esomeprazole.? Please continue a??soft diet??until your follow up? Incisions are closed with absorbable sutures and overlying Steri-strips.??Please leave Steri-stripsin place as they will fall off overtime.? If you have any questions, please call the surgery office at ?? Please call your Primary Care Provider within 1 week for post hospital follow up and review of yourmedications. ?? Activity Instructions ?? -No heavy lifting >10 lbs -Increase activity as tolerated -Encourage coughing and deep breathing, use of incentive spirometer -No tub baths until incision(s) has/have healed -May shower 48 hours after surgery -No driving until off narcotics and cleared by Surgery?? Discharge Orders Scheduled Follow-Up Appointments Tuesday 1:00 PM EST ?? With: Hannah Sargent Where: [facility] [address] [place] [address]- Status: Pending You Need to Schedule the Following Appointments Follow Up with??Johnson Shook When:??Within 2 to 3 weeks Why: Please call to confirm your follow up appointment time Where: [address] [place] [address] [place] [address]- [facility] (1) Follow Up with??Rhoda Pina When:??In 0 days Where: [address] [place] [address]- Business (1) Discharge Medications TAMMY LERMA :1985 Visit Date:10/17/2023 Medications: Please continue your medications until treatment is completed or stopped by your provider. Medications not listed below should be discontinued. Discuss any questions related to medications with your provider. What How Much When Instructions Next Dose New Tramadol (traMADol 50 mg oral tablet) 100 Milligram Oral Every 6 hours as needed for Pain , Moderate Duration: 5 Days Pickup at [facility] as needed Unchanged Albuterol (albuterol 0.021% inhalation solution) 3 Milliliter Nebulized inhalation Every 4 hours as needed for Wheezing/Shortness of Breath as needed Unchanged Albuterol (ProAir RespiClick 90 mcg/ inh inhalation powder) 2 puff(s) Inhalation Every 4 hours as needed for Wheezing/Shortness of Breath as needed Unchanged Amphetamine-Dextroamphetamine (Adderall 30 mg oral tablet) 1 tab(s) Oral Daily in the morning 9am 10/20 Unchanged Budesonide (Pulmicort Flexhaler 90 mcg) 180 Microgram Inhalation Twice a day 10/19 Unchanged Calcium And Vitamin D Combination (calcium (as carbonate)-vitamin D 500 mg-100 intl unitsoral tablet, chewable) 2 tab(s) Daily 10/20 Unchanged cariprazine (Vraylar 6 mg oral capsule) 1 capsule Oral Daily 10/20 Unchanged Celecoxib (CeleBREX 50 mg oral capsule) 1 capsule Oral Daily in the morning 10/20 Unchanged Cholecalciferol (Vitamin D3 1000 intl units oral capsule) 1 capsule Oral Daily 10/20 Unchanged Clonazepam (KlonoPIN 1 mg oral tablet) 1 tab(s) Oral 3 times a day 10/19 Unchanged Clonidine (cloNIDine 0.1 mg oral tablet) 1 tab(s) Oral 3 times a day 10/19 Unchanged Docusate (Colace sodium 100 mg oral capsule) 2 capsule Oral Daily as needed for as needed for constipation as needed Unchanged Escitalopram 15 Milligram Oral Daily 10/20 Unchanged Esomeprazole (Nexium Capsule) 40 Milligram Oral Daily in the morning 10/20 Unchanged Ferrous Gluconate (ferrous gluconate 324 mg oral tablet) 1 tab(s) Oral Daily 10/20 Unchanged Folic Acid (folic acid 1 mg oral tablet) 1 tab(s) Oral Daily 10/20 Unchanged Gabapentin 300 Milligram Oral Twice a day 10/19 Unchanged Lamotrigine (lamotrigine 100 mg oral tablet) 1 tab(s) Oral Daily 10/20 Unchanged Bantry (lithium 450 mg oral tablet, extended release) 1 tab(s) Oral Twice a day 10/19 Unchanged Loratadine (Claritin 10 mg oral tablet) 1 tab(s) Oral Daily 10/20 Unchanged mirabegron (Myrbetriq 50 mg oral tablet, extended release) 1 tab(s) Oral Daily do not crush or chew ?? 10/20 Unchanged Mirtazapine (mirtazapine 7.5 mg oral tablet) 2 tab(s) Oral Daily at Bedtime 10/19 Unchanged Simvastatin (Zocor 20 mg oral tablet) 1 tab(s) Oral Daily before dinner m 10/19 Unchanged Trazodone (traZODone 50 mg oral tablet) 1 tab(s) Oral Daily at Bedtime as needed for Other as needed Pharmacy Information [facility]: [address], [place] [id number] [phone] Test Results Below is a partial list of the most recent Laboratory test results done prior to this discharge. You may have had other tests and procedures not included in this list. Please discuss all test resultswith your provider. Est Creatinine Clearance - 104.10 mL/min (10/18/2023) Immunizations This Visit Not Given Vaccine Commentsinfluenza virus vaccine, inactivated Parent Or Guardian Refuses Allergies (NKA means No Known Allergies) NKA Problems Active Problems??(13) 03/10/18 pap during remains ASCUS, HPV negative. Given history of JOHNATHAN III, she needs postpar?? Adult ADHD?? Anemia?? Bipolar disease with depression/anxiety with suicide attempt in 11/2017 - psychiatrist Dr. Narayan at [facility]?? JOHNATHAN 3 on biopsies from 10/06/16 at [place] 1:00 and 11:00. Was supposed to have [facility] but got ?? COPD with asthma?? DNR- patient confirms 06/03/18, signed august 2017?? Gestational hypertension?? Hereditary spherocytosis s/p splenectomy 06/2017?? High-risk supervision?? History of migraine headaches?? Obese class I?? Smoker?? Education Materials Below is the list of Educational Leaflet Providered with your Discharge Instructions. After Laparoscopic Hernia Repair?? Hiatal Hernia Repair?? Surgery Hernia Repair?? Diet-Soft?? Valuables and Belongings I fully understand and agree that [facility] accepts no responsibility for all my personal property including clothing, toilet articles, radios, jewelry, dentures, hearing aids, rings, money, or any other property that is in my possession or is brought to me after admission. I understand certain valuables may be placed in a hospital safe for a short period of time. I understand that the hospital is not liable for loss or damage due to accident, fire, or other natural occurrence while said property is in the safe. I accept full responsibility for any personal property that I keep with me, and will not hold the hospital responsible in case of loss or disappearance. I acknowledge that i have been encouraged to send valuables and belongings home. ?? Review of Valuable and Belonging List: With patient Disposition of Belongings: Other: to pt belonging room Date for Pt to Sign Valuables/Belongings: 10/17/23 20:52:00 ?? Other Discharge Information ? Case Management Discharge Plan?? Discharge Plan?? Discharge Level of Care at Discharge: Home/Penitentiary/Foster Care ?? Pulmonary Rehab Status?? Pulmonary Rehab Discharge Status?? Respiratory Rate: 18 br/min ? Common Emergency Awareness Tips IS IT A STROKE? Act FAST and Check for these signs: FACE Does the face look uneven? ARM Does one arm drift down? SPEECH Does their speech sound strange? TIME Call at any sign of stroke ?? Heart Attack Signs Chest discomfort: Most heart attacks involve discomfort in the center of the chest and lasts more than a few minutes, or goes away and comes back. It can feel like uncomfortable pressure, squeezing, fullness or pain. Discomfort in upper body: Symptoms can include pain or discomfort in one or both arms, back, neck, jaw or stomach. Shortness of breath: With or without discomfort. Other signs: Breaking out in a cold sweat, nausea, or lightheaded. Remember, MINUTES DO MATTER. If you experience any of these heart attack warning signs, call to get immediate medical attention! ?? Smoking can increase your chances of developing chronic health problems and can cause harmful effects to other family members in your house. If you smoke, you are strongly encouraged to quit. Please call [facility] TRData Link at [phone] or [phone]) or log in to [email or web address] for referrals to smoking cessation programs. ?? 350 Suicide & Crisis Lifeline is available 30/05 if you or someone you know needs to find a reason to keep living. By calling 385 you'll be connected to a skilled, trained counselor at a crisis center in your area. INPATIENT DISCHARGE INSTRUCTIONS SIGNATURE PAGE MORGANTAMMY RIBEIRO Location:[facility] Registration Date and Time:10/17/2023 10:05 EST Primary Care Physician: Rhoda Pina MD, Attending Physician: Johnson Shook MD, I, TAMMY HUSSEIN, have received the above patient education materials/instructions and have verbalized understanding. If ambulance or transport services are being used I further acknowledge beinggiven a choice of service. ?? If you need to contact me, please call me at this number: . Patient/Boil Off Worker Name: Patient/Boil Off Worker Signature: Relationship to Patient: Witness Name/Signature: Date: * Hugo Blanc MD: PERFORM, SIGN, VERIFY Event Display: Patient Education Handout Authored Date: [id number] * Adrianne Yusuf RN: PERFORM Event Display: Patient Education Leaflets Authored Date: [id number] After Laparoscopic Hernia Repair ?? [id number] After Laparoscopic Hernia Repair You had a procedure called laparoscopic hernia repair. A hernia is a defect in the tough tissue covering the musculature of the abdominal wall (fascia). During laparoscopic hernia surgery, a surgeon inserts a telescope attached to a camera as well as surgical instruments through several tiny incisions in your abdomen. The surgeon repairs the??hernia??with mesh, which patches the tear or weakness i n the fascia. Home care ??? You may have sharp pain that radiates to your shoulder. This is referred pain from the gases they used to inflate your belly. It's??common and usually lasts a short time. You may also have numbness around the incision area. ??? Keep doing the coughing and deep breathing exercises thatyou learned in the hospital. These will help to prevent lung infection. ??? Prevent constipation so you don???t strain when going to the bathroom. Eat fruits, vegetables, and whole grains. Drink 6 to8??glasses of water a day, unless otherwise directed. Use a laxative or a mild stool softener if your??healthcare provider??says it???s OK. ??? Wash your incision with mild soap and water. Pat it dry. Don???t??use oil, powder, or lotion on your incision. ??? Shower or take baths as instructed by your??healthcare provider. Instructions will vary based on how your incision was closed and how it???shealing. It may be closed with glue, stitches, or miquel. Your healthcare provider may have different advice for each kind. ?? Activity ??? Ask others to help with chores and errands while you recover. ??? Don???t lift anything heavier than??10 pounds until your??healthcare provider??says it???s OK. ??? Don???t mow the lawn,use a vacuum freight car cleaner, or do other strenuous activities until your??healthcare provider??says it's OK. ??? Climb stairs slowly and pause after every few steps. ??? Walk as often as you feel able. ??? Ask your??healthcare provider??when you can drive again. This may be when you stop taking pain medicine and can move comfortably from side to side. Don???t drive if you are still taking opioid pain medicine. ?? When to call your??healthcare provider?? Call your??healthcare provider??right away if you have any of the following: ??? Pain, bleeding, redness, or fluid at the incision site that gets worse ??? Fever of??100.4??F (38??C) or higher or as directed by your healthcare provider ??? Chills ??? Vomiting or nausea that doesn???t go away ??? Inability to urinate ??? No bowel movement after three days ??? Swelling in abdomen or groin that getsworse ??? Pain that???s not relieved by medicine ?? Last Reviewed Date: 2021 ?? [employer]. All rights reserved. This information is not intended as a substitute for professional medical care. Always follow your healthcare professional's instructions. ?? * Adrianne Yusuf RN: PERFORM Event Display: Patient Education Leaflets Authored Date: Hiatal Hernia Repair ?? 69 Hiatal Hernia Repair What is a hiatal hernia repair? A hiatal hernia is an abnormal bulging in your belly (abdomen). It happens when part of your stomach pushes up into an opening (hiatus) in your diaphragm. The diaphragm is a muscle between your stomach and your chest. In most cases, your food pipe (esophagus) goes through the hiatus opening down to your stomach. Butin a hiatal hernia, the upper part of your stomach moves up through the opening into your chest. The upper part of your stomach then gets pinched. Stomach acid can flow up through the opening. This can cause heartburn and other symptoms, such as regurgitation and trouble swallowing. You may not need surgery. But if your case is serious, you will need a hiatal hernia repair. This is often done through laparoscopic surgery. In laparoscopic surgery, your healthcare provider makes small cuts (incisions) in your body.?? They put a long, thin tube (laparascope) that has a camera andsmall surgical tools into the cuts to repair the hernia. In some cases, you may need open (traditional) surgery to repair your hiatal hernia. ?? Why might I need a hiatal hernia repair? A hiatal hernia repair is a serious surgery. You will need some time to recover after the surgery. Your healthcare provider will suggest this surgery if you have a hiatal hernia and long-term (chronic) heartburn and other symptoms. They will try other things before doing surgery. ?? What are the risks of a hiatal hernia repair? Laparoscopic surgery is a safe surgery. But all surgeries have risks. The risks of a hiatal hernia repair include: ??? Internal bleeding ??? Infection ??? Damage to nearby organs ??? Postoperative symptoms, such as trouble swallowing, trouble belching, or acid reflux ?? How do I get ready for a hiatal hernia repair? Your healthcare provider will explain the surgery to you. Be sure to ask any questions you may have. Tell your healthcare provider about all the medicines you take. This includes cfhi-nbj-lssxxby medicines, such as ibuprofen. It also includes vitamins, herbs, and other supplements. You will be asked to sign a consent form that gives your permission to do the surgery and get anesthesia. Read the form carefully and ask questions if something is not clear. Your healthcare provider will ask questions about your past health. They will also do a physical exam. This is to be sure you are in good general health before having the surgery. You may also have blood tests or imaging tests. Tell your healthcare provider if you: ??? Are or think you may be ??? Are sensitive or allergic to any medicines, iodine, latex,tape, or anesthesia drugs (local and general) ??? Have a history of bleeding disorders or are taking any blood-thinning (anticoagulant) medicines, aspirin, or other medicines that affect blood clotting (you may have to stop taking these medicines before your surgery) You must not eat or drink anything for 8 hours before the surgery. This often means no food or drink after midnight. Your healthcare provider may have other instructions for you based on your medical condition. ?? What happens during a hiatal hernia repair? Your healthcare provider will decide if you should have a laparoscopic surgery or an open repair. Laparoscopic surgery has smaller incisions and a shorter recovery time. A hiatal hernia repair is most often done while you are asleep under general anesthesia. Your healthcare provider will decide what kind of anesthesia to use. This will depend on the reason for the surgery and your overall health. Ask your healthcare provider about the details of your surgery. In general, you can expect the followin. You will be asked to take off any jewelry or other items that may be in the way during surgery. 2. You will be asked to take off your clothes and wear a hospital gown. 3. An IV (intravenous) line will be inserted in your arm or hand. This is so that you can be given fluids and medicines. 4. A thin tube (catheter) may be put into your bladder. This will help you to urinate safely during surgery. 5. You will be placed on your back on the operating table. 6. The anesthesiologist will keep checking your heart rate, blood pressure, breathing, and blood oxygen level during the surgery. 7. If youhave too much hair at the surgical site, it will be clipped off. 8. The skin at the surgical site will be cleaned with an antiseptic solution. For a laparoscopic hiatal hernia repair, your healthcare provider will make small incisions in yourbelly. Carbon dioxide gas will be put into your belly to make it swell. This helps your healthcare provider see your organs more clearly. Then they will insert a tube that has a camera and surgical tools in it to repair the hernia. For an open repair, your healthcare provider will make a larger incision at the site of the hernia.They will then repair the hernia by hand, using surgical tools. Once the surgery is over, your healthcare provider will close the incisions. ?? What happens after a hiatal hernia repair? After surgery, you will go to the postanesthesia care unit (PACU). Your healthcare team will watch your vital signs, such as your heart rate, blood pressure, and breathing. Your recovery will vary depending on the type of anesthesia you had. Once your blood pressure, pulse, and breathing are stableand you are alert, you will go to your hospital room. When you are home, you must keep the incisions clean and dry. Your healthcare provider will give you instructions on how to bathe. Any stitches or surgical miquel used will be removed at a follow-upoffice visit. If adhesive strips were used, they should be kept dry. They will often fall off in a few days. If you had a laparoscopic repair done, you may feel pain from the carbon dioxide gas that is still in your belly. This pain may last for a few days. You should feel a bit better each day. Your healthcare provider may let you take a pain reliever. But it's important to note that aspirin or other types of pain medicines may raise your risk of bleeding. So be sure to take only medicines that your healthcare provider has approved. You may be allowed to drink clear fluids a few hours after your surgery. You may slowly be able to add more solid foods. If you have nausea or vomiting afterwards, you will remain on liquids or stop eating for a time. Sometimes a tube is placed into the stomach to help with symptoms. You may need to limit activity after surgery, but it's still important to move. Your healthcare provider may also have other instructions for you. Call your healthcare provider if you have any questions about your recovery. Also call if you have any of the following symptoms: ??? Fever or chills ??? Redness, swelling, bleeding, or other drainage from the incision site ??? More pain around the incision site ??? Vomiting ??? Trouble urinating ?? Next steps Before you agree to the test or procedure make sure you know: ??? The name of the test or procedure??? The reason you are having the test or procedure ??? What results to expect and what they mean ??? The risks and benefits of the test or procedure ??? What the possible side effects or complications are ??? When and where you are to have the test or procedure ??? Who will do the test or procedure and what that person???s qualifications are ??? What would happen if you did not have the test or procedure ??? Any alternative tests or procedures to think about ??? When and how will you get the results ??? Who to call after the test or procedure if you have questions or problems ??? How much you will have to pay for the test or procedure ?? Last Reviewed Date: 2023 ?? 5803-6143 [employer]. All rights reserved. This information is not intended as a substitute for professional medical care. Always follow your healthcare professional's instructions. ?? * Adrianne Yusuf RN: PERFORM Event Display: Patient Education Leaflets Authored Date: [id number] Surgery Hernia Repair ?? 286 Discharge Instructions Hernia Repair ?? Activity: No heavy lifting or vigorous activity for 3 ??? 4 weeks after surgery ?? Diet: Continue your usual diet ?? Further Instructions: ?? Keep the incision clean and dry for 48 hours. The gauze dressing may be removed 2 days after surgery. Leave the steri-strips (small pieces of tape directly on the skin) in place until they fall off by themselves. You may shower on the 3 rd ??day after surgery. ?? A small amount of blood on the dressing is common. For excessive bleeding, please call the surgeon or go to the Emergency Room at [facility]. ?? The numbing medicine will wear off. Please fill your prescription for pain medicine on your way home. The pain medicine may cause constipation, and you should use a stool softener and/or laxative as needed. ?? Please call the surgical office to schedule a follow-up appointment within 2- 3 weeks. Ice may be applied to the surgical site several times during the first day: apply through a cloth for 15 minutes on and 30 ??? 45 minutes off. Be careful not to freeze the skin. ?? IF YOU HAVE ANY QUESTIONS OR PROBLEMS, PLEASE CALL THE SURGICAL OFFICE ? Patient Care team information Care Team Personnel Name: Nicole Austin RN Position: [facility] RN Member Role: Primary Care Nurse Name: Nora Coppola RN Position: [facility] RN Member Role: Primary Care Nurse Name: Darby Huntley RN Position: [facility] RN Member Role: Primary Care Nurse Name: Mark Yin RN Position: [facility] RN Member Role: Primary Care Nurse Name: Linda Ibrahim MD Position: [facility] Physician - Oncology Member Role: Lifetime Consulting Physician Address: Address: [address] [place] [address] [place] [address]- Name: So Ornelas NP Position: [facility] PCO Associate Professional Member Role: Primary Care Nurse Name: Carlos Enrique Owens RN Position: [facility] RN Member Role: Primary Care Nurse Name: Melinda Shirley RN Position: [facility] sample cutter Member Role: Primary Care Nurse Name: Rhoda Pina MD Position: [facility] Outreach Member Role: PCP Address: Address: [address] [place] [address]- Name: Amy Berger RN Position: [facility] RN Member Role: Primary Care Nurse Name: Juan Tariq RN Position: [facility] RN Member Role: Primary Care Nurse Name: Owen Benton RN Position: [facility] OB RN Member Role: Primary Care Nurse Name: Moni Esquivel RN Position: [facility] Outreach Member Role: Primary Care Nurse Name: Yahaira Sahni RN Position: [facility] RN Member Role: Primary Care Nurse Name: Rosemarie Brooks RN Position: S RN Member Role: Primary Care Nurse Name: Adrianne Yusuf RN Position: S RN Member Role: Primary Care Nurse Name: Gordy Rodas RN Position: [facility] RN Member Role: Primary Care Nurse Care Team Related Persons Name: EWA LEON Address: AMERCN Address: [address] [address] [place] Address: temporary 0 Name: JOSE PIÑA Address: [place] [address] Name: PTSTATES, NONE
--- OUTSIDE RECORDS SUMMARY | 2024-09-10 16:01 | XMS_ITS | Continuity of Care Document ---
Author Organization [facility] Address [address] [place] [address]- Care Team Providers Care Glass Blowing Instructor Name Role Phone Rhoda Pina MD Primary Care Physician [phone] [place] [facility] 04/04/24 - 07/19/24 [facility] [address] [place] [address]- Discharge Disposition: A-D/C Home Attending Physician: Linda Ibrahim MD Admitting Physician: Linda Ibrahim MD Referring Physician: Rhoda Pina MD Allergies, Adverse Reactions, Alerts No Known [...] Refills, Soft Stop, 12/14/23 14:38:00 EST, Tablet, [facility], Partial fill upon patient request if the [...] 01/09/24 11:56:00 EST, Route to Pharmacy Electronically, [facility], 160, cm, 01/03/24 13:34:00 EST, Height, [...] in 11/2017 - psychiatrist Dr. Narayan at [facility] Confirmed Active JOHNATHAN 3 on biopsies from 10/06/16 at [place] 1:00 and 11:00. Was supposed to have [...] Team Personnel Name: Nicole Austin RN Position: [facility] RN Member Role: Primary Care Nurse Name: Nora Coppola RN Position: [facility] RN Member Role: Primary Care Nurse Name: Darby Huntley RN Position: [facility] RN Member Role: Primary Care Nurse Name: Mark Yin RN Position: [facility] RN Member Role: Primary Care Nurse Name: Linda Ibrahim MD Position: [facility] Physician - Oncology Member Role: Lifetime Consulting Physician Address: Address: [address] [place] [address] [place] [address]- Name: Carlos Enrique Owens RN Position: [facility] RN Member Role: Primary Care Nurse Name: Melinda Shirley RN Position: [facility] insurance healthcare consultant Member Role: Primary Care Nurse Name: Rhoda Pina MD Position: [facility] Outreach Member Role: PCP Address: Address: [address] [place] [address]- [place] Name: Amy Berger RN Position: [facility] RN Member Role: Primary Care Nurse Name: Juan Tariq RN Position: [facility] RN Member Role: Primary Care Nurse Name: Owen Benton RN Position: [facility] OB RN Member Role: Primary Care Nurse Name: Moni Esquivel RN Position: [facility] Outreach Member Role: Primary Care Nurse Name: Yahaira Sahni RN Position: [facility] RN Member Role: Primary Care Nurse Name: Adrianne Yusuf RN Position: [facility] RN Member Role: Primary Care Nurse Name: Gordy Rodas RN Position: [facility] RN Member Role: Primary Care Nurse Name: Linda Ibrahim MD Position: [facility] Physician - Oncology Med Service: Hematology & Oncology Member Role: Admitting Physician Address: Address: [address] [place] [address] [place] [address]- Care Team Related Persons Name: EWA LEON Address: AMERCN Address: home [address] [place] [address] [place] Address: temporary 0 Name: JOSE PIÑA Address: [place] [address] Name: PTSTATES, NONE
--- OUTSIDE RECORDS SUMMARY | 2024-09-10 16:01 | XMS_ITS | Continuity of Care Document ---
Author Organization [facility] Address [address] [place] [address], [address] [place] [address]- Care Team Providers Care Sales Operations Coordinator Name Role Phone Rhoda Pina MD [id number] [address] [facility], [address] [place], [place] [address] Attending Physician: Floyd Dudley Admitting Physician: Floyd Dudley Referring Physician: Floyd Dudley Allergies, Adverse Reactions, Alerts No Known Allergies [...] Refills, Soft Stop, 12/14/23 14:38:00 EST, Tablet, [facility], Partial fill upon patient request if [...] 01/09/24 11:56:00 EST, Route to Pharmacy Electronically, [facility], 160, cm, 01/03/24 13:34:00 EST, Height, [...] in 11/2017 - psychiatrist Dr. Narayan at [facility] Confirmed Active JOHNATHAN 3 on biopsies from 10/06/16 at [place] 1:00 and 11:00. Was supposed to have [...] per day: 2ppd; entered on: 06/22/18 Sex Laboratory * Event Display: Non BH Lab Results Authored Date: * Event Display: Non Lab Results Authored Date: Patient Care team information Care Team Personnel Name: Nicole Austin RN Position: [facility] RN Member Role: Primary Care Nurse Name: Nora Coppola RN Position: [facility] RN Member Role: Primary Care Nurse Name: Darby Huntley RN Position: [facility] RN Member Role: Primary Care Nurse Name: Mark Yin RN Position: [facility] RN Member Role: Primary Care Nurse Name: Linda Ibrahim MD Position: [facility] Physician - Oncology Member Role: Lifetime Consulting Physician Address: Address: [address] [place] [address] [place] [address]- Name: Carlos Enrique Owens RN Position: [facility] RN Member Role: Primary Care Nurse Name: Melinda Shirley RN Position: [facility] materials development engineer Member Role: Primary Care Nurse Name: Rhoda Pina MD Position: [facility] Outreach Member Role: PCP Address: Address: [address] [place] [address]- Name: Amy Berger RN Position: [facility] RN Member Role: Primary Care Nurse Name: Juan Tariq RN Position: [facility] RN Member Role: Primary Care Nurse Name: Owen Benton RN Position: [facility] OB RN Member Role: Primary Care Nurse Name: Moni Esquivel RN Position: [facility] Outreach Member Role: Primary Care Nurse Name: Yahaira Sahni RN Position: [facility] RN Member Role: Primary Care Nurse Name: Adrianne Yusuf RN Position: [facility] RN Member Role: Primary Care Nurse Name: Clark RNGordy Position: [facility] SN RN Member Role: Primary Care Nurse Care Team Related Persons Name: CAROLYN EWA Address: AMERCN Address: home [address] [place] [address] Address: temporary 0 Name: JOSE PIÑA Address: [place] [address] Name: PTSTATES, NONE
--- OUTSIDE RECORDS SUMMARY | 2024-09-10 16:01 | XMS_ITS | Continuity of Care Document ---
Author Organization [facility] ter Address [address] [place] [address]- Care Team Providers Care Administrative Services Assistant Name Role Phone Rhoda Pina MD Primary Care Physician [place] [facility] [place] 10[place]12/23 - 11/11/[address] [address]- Attending Physician: Johnson Shook MD, I Admitting Physician: Johnson Shook MD, I Allergies, Adverse [...] 10/12/23 16:49:00 EST, Route to Pharmacy Electronically, [facility], 160, cm, 12/21/21 10:36:00 EST, Height, [...] in 11/2017 - psychiatrist Dr. Narayan at [facility] Confirmed Active JOHNATHAN 3 on biopsies from 10/06/16 at [place] 1:00 and 11:00. Was supposed to have [...] Team Personnel Name: Nicole Austin RN Position: [facility] RN Member Role: Primary Care Nurse Name: Nora Coppola RN Position: [facility] RN Member Role: Primary Care Nurse Name: Darby Huntley RN Position: [facility] RN Member Role: Primary Care Nurse Name: Mark Yin RN Position: [facility] RN Member Role: Primary Care Nurse Name: Linda Ibrahim MD Position: [facility] Physician - Oncology Member Role: Lifetime Consulting Physician Address: Address: [address] [place] [address] Hematology [place], [place] [address] Name: So Ornelas NP Position: [facility] Medical Student Member Role: Primary Care Nurse Name: Carlos Enrique Owens RN Position: [facility] RN Member Role: Primary Care Nurse Name: Melinda Shirley RN Position: [facility] arts and crafts teacher Member Role: Primary Care Nurse Name: Rhoda Pina MD Position: [facility] Outreach Member Role: PCP Address: Address: [address] [place] [address]- Name: Amy Berger RN Position: [facility] RN Member Role: Primary Care Nurse Name: Juan Tariq RN Position: [facility] RN Member Role: Primary Care Nurse Name: Owen Benton RN Position: [facility] OB RN Member Role: Primary Care Nurse Name: Mnoi Esquivel RN Position: [facility] Outreach Member Role: Primary Care Nurse Name: Yahaira Sahni RN Position: [facility] RN Member Role: Primary Care Nurse Name: Adrianne Yusuf RN Position: [facility] RN Member Role: Primary Care Nurse Name: Gordy Rodas RN Position: [facility] SN RN Member Role: Primary Care Nurse Care Team Related Persons Name: EWA LEON Address: AMERCN Address: home [address] [place] [address] [place] Address: temporary 0 Name: JOSE PIÑA Address: [place] [address] Name: PTSTAPAUL, NONE
--- OUTSIDE RECORDS SUMMARY | 2024-09-10 16:01 | XMS_ITS | Continuity of Care Document ---
Author Organization [facility] Address [address] [place] [address], [address] [place] [address]- Care Team Providers Care Fuel Technician Name Role Phone Rhoda Pina MD [id number]11[facility]24 [facility] [address] [facility], [address] [place] [address]- Allergies, Adverse Reactions, Alerts No Known Allergies [...] Refills, Soft Stop, 12/14/23 14:38:00 EST, Tablet, [facility], Partial fill upon patient request if [...] 01/09/24 11:56:00 EST, Route to Pharmacy Electronically, [facility], 160, cm, 01/03/24 13:34:00 EST, Height, [...] in 11/2017 - psychiatrist Dr. Narayan at [facility] Confirmed Active JOHNATHAN 3 on biopsies from 10/06/16 at [place] 1:00 and 11:00. Was supposed to [...] Team Personnel Name: Nicole Austin RN Position: [facility] RN Member Role: Primary Care Nurse Name: Nora Coppola RN Position: [facility] RN Member Role: Primary Care Nurse Name: Darby Huntley RN Position: [facility] RN Member Role: Primary Care Nurse Name: Mark Yin RN Position: [facility] RN Member Role: Primary Care Nurse Name: Linda Ibrahim MD Position: [facility] Physician - Oncology Member Role: Lifetime Consulting Physician Address: Address: [address] [place] [address] [place] [address]- Name: Carlos Enrique Owens RN Position: [facility] RN Member Role: Primary Care Nurse Name: Melinda Shirley RN Position: [facility] coil winder repair Member Role: Primary Care Nurse Name: Rhoda Pina MD Position: [facility] Outreach Member Role: PCP Address: Address: [address] [place] [id number]- Name: Amy Berger RN Position: [facility] RN Member Role: Primary Care Nurse Name: Juan Tariq RN Position: [facility] RN Member Role: Primary Care Nurse Name: Owen Benton RN Position: [facility] OB RN Member Role: Primary Care Nurse Name: Moni Esquivel RN Position: [facility] Outreach Member Role: Primary Care Nurse Name: Yahaira Sahni RN Position: S RN Member Role: Primary Care Nurse Name: Adrianne Yusuf RN Position: [facility] RN Member Role: Primary Care Nurse Name: Audrey Rodas RNpau Position: [facility] RN Member Role: Primary Care Nurse Care Team Related Persons Name: EWA LEON Address: AMERCN Address: home [address] [place] [id number] Address: temporary 0 Name: JOSE PIÑA Address: [place] [address] Name: PTSTATES, NONE
--- OUTSIDE RECORDS SUMMARY | 2024-09-10 16:01 | XMS_ITS | Continuity of Care Document ---
Author Organization [facility] ancer Care Address [address] [place] [address]- Care Team Providers Care Warp Hauler Name Role Phone Rhoda Pina MD Primary Care Physician Encounter [facility] Date(s): 11/10/23 - 12/10/[address] [address]- Attending Physician: Floyd Dudley Admitting Physician: Floyd Dudley Referring Physician: AdmtrFloyd Allergies, Adverse Reactions, Alerts No Known Allergies [...] 10/12/23 16:49:00 EST, Route to Pharmacy Electronically, [facility], 160, cm, 12/21/21 10:36:00 EST, Height, [...] in 11/2017 - psychiatrist Dr. Narayan at [facility] Confirmed Active JOHNATHAN 3 on biopsies from 10/06/16 at [place] 1:00 and 11:00. Was supposed to [...] 06/22/18 Sex Laboratory * Event Display: Non Lab Results Authored Date: Radiology * Event Display: Ultrasound Abdomen, Non- Authored Date: Patient Care team information Care Team Personnel Name: Nicole Austin RN Position: [facility] RN Member Role: Primary Care Nurse Name: Nora Coppola RN Position: [facility] RN Member Role: Primary Care Nurse Name: Darby Huntley RN Position: [facility] RN Member Role: Primary Care Nurse Name: Mark Yin RN Position: [facility] RN Member Role: Primary Care Nurse Name: Linda Ibrahim MD Position: [facility] Physician - Oncology Member Role: Lifetime Consulting Physician Address: Address: [address] [place] [address] Hematology On[address] Name: Carlos Enrique Owens RN Position: [facility] RN Member Role: Primary Care Nurse Name: Melinda Shirley RN Position: [facility] airflight attendants supervisor Member Role: Primary Care Nurse Name: Rhoda Pina MD Position: [facility] Outreach Member Role: PCP Address: Address: [address] [place] [address] Name: Amy Berger RN Position: [facility] RN Member Role: Primary Care Nurse Name: Juan Tariq RN Position: [facility] RN Member Role: Primary Care Nurse Name: Owen Benton RN Position: [facility] OB RN Member Role: Primary Care Nurse Name: Moni Esquivel RN Position: [facility] Outreach Member Role: Primary Care Nurse Name: Yahaira Sahni RN Position: [facility] RN Member Role: Primary Care Nurse Name: Adrianne Yusuf RN Position: [facility] RN Member Role: Primary Care Nurse Name: Gordy Rodas RN Position: [facility] SN RN Member Role: Primary Care Nurse Care Team Related Persons Name: EWA LEON Address: AMERCN Address: home [address] [place] [address] Address: temporary 0 Name: JOSE PIÑA Address: [place] [address] Name: ADRIÁN, VERONICA
--- OUTSIDE RECORDS SUMMARY | 2024-09-10 16:01 | XMS_ITS | Continuity of Care Document ---
Author Organization [facility] an[facility] Address [address] [place] [address]- Care Team Providers Care Senior Bookkeeper Name Role Phone Rhoda Pina MD Primary Care Physician Encounter [facility] Date(s): 11/10/23 - 02/14/24 [facility] Care [address] [place] [address]- Discharge Disposition: A-D/C Home Attending Physician: Linda Ibrahim MD Admitting Physician: Linda Ibrahim MD Referring Physician: Ronaldo SIDDIQUI , [facility] Allergies, Adverse Reactions, Alerts No Known Allergies [...] 01/09/24 11:56:00 EST, Route to Pharmacy Electronically, [facility], 160, cm, 01/03/24 13:34:00 EST, Height, [...] in 11/2017 - psychiatrist Dr. Narayan at [facility] Confirmed Active JOHNATHAN 3 on biopsies from 10/06/16 at [place] 1:00 and 11:00. Was supposed to have CKC but got . 5/16/17 pap no interp. possible. Pap smear 09/12/17 [...] oldest [Reference Range]: 1 Height 160 cm (12/15/23 11:06 AM) Weight 81.3 kg (12/15/23 11:06 AM) Oxygen Saturation [94-100 %] 98 % (12/15/23 11:06 AM) Pulse Rate [55-90 bpm] 89 bpm (12/15/23 11:06 AM) Body Mass Index [18.5-24.99 kg/m2] 31.76 kg/m2 *>HHI* (12/15/23 11:06 AM) Blood Pressure [90-138/55-84 mm Hg] 123/ 87mm Hg (12/15/23 11:06 AM) Temperature [96.8-100.4 DegF] 97.2 DegF (12/15/23 11:06 AM) Mode of Delivery (Oxygen) Room air (12/15/23 11:06 AM) Blood pressure sites Arm, right (12/15/23 11:06 AM) Temperature Route Temporal (12/15/23 11:06 AM) Dry Weight 81.3 kg (12/15/23 11:06 AM) Weight Obtained Via Standing scale (12/15/23 11:06 AM) Dry Weight Obtained Via Standing scale (12/15/23 11:06 AM) Social History Social History Type Response Smoking Status Current every day karen grissom; Type: Cigarettes; Other: Approximately 2 packs per day; Tobacco use times per day: 2ppd; entered on: 06/22/18 Sex Patient Care team information Care Team Personnel Name: Geovanna BURROUGHS, Nicole Cornelius Position: [facility] RN Member Role: Primary Care Nurse Name: Nora Coppola RN Position: [facility] RN Member Role: Primary Care Nurse Name: Darby Huntley RN Position: [facility] RN Member Role: Primary Care Nurse Name: Mark Yin RN Position: [facility] RN Member Role: Primary Care Nurse Name: Linda Ibrahim MD Position: [facility] Physician - Oncology Member Role: Lifetime Consulting Physician Address: Address: [address] [place] [address] Hematology Oncology [place], [place] - Name: Carlos Enrique Owens RN Position: [facility] RN Member Role: Primary Care Nurse Name: Melinda Shirley RN Position: [facility] botany laboratory assistant Member Role: Primary Care Nurse Name: Rhoda Pina MD Position: [facility] Outreach Member Role: PCP Address: Address: [address] [place] [address]- Name: Amy Berger RN Position: [facility] RN Member Role: Primary Care Nurse Name: Juan Tariq RN Position: [facility] RN Member Role: Primary Care Nurse Name: Owen Benton RN Position: [facility] OB RN Member Role: Primary Care Nurse Name: Moni Esquivel RN Position: [facility] Outreach Member Role: Primary Care Nurse Name: Yahaira Sahni RN Position: [facility] RN Member Role: Primary Care Nurse Name: Adrianne Yusuf RN Position: [facility] RN Member Role: Primary Care Nurse Name: Gordy Rodas RN Position: [facility] SN RN Member Role: Primary Care Nurse Name: Linda Ibrahim MD Position: [facility] Physician - Oncology Med Service: Hematology & Oncology Member Role: Admitting Physician Address: Address: [address] [place] [address] Hematology Oncology [place], [place] - Care Team Related Persons Name: EWA LEON Address: AMERCN Address: home [address] [place] [address] [place] Address: temporary 0 Name: JOSE PIÑA Address: [place] [address] Name: PTSTATES, NONE
--- OUTSIDE RECORDS SUMMARY | 2024-09-10 16:01 | XMS_ITS | Continuity of Care Document ---
Author Organization [facility] Address [address] [place] [address]- Care Team Providers Care Rubber Gasket Inspector Trimmer Name Role Phone Rhoda Pina MD Primary Care Physician Encounter [facility] Date(s): 09/14/23 - 09/14/[address] [address] Discharge Disposition: A-D/C Home Attending Physician: Felice Haas MD Admitting Physician: Felice Haas MD Referring Physician: Johnson Shook MD, I Allergies, Adverse Reactions, Alerts No Known Allergies Immunizations Given and Recorded Vaccine Date Status Refusal Reason haemophilus b conjugate (PRP-T) vaccine 06/22/17 G iven pneumococcal 23-valent vaccine 1 06/22/17 Given Meningococcal Conjugate Vaccine 2 06/22/17 Given 1Result Comment: given anterior deltoid 2Result Comment: given posterior deltoid Medications Adderall XR 25 mg oral capsule, extended release 1 capsule = 25 mg, By Mouth, Daily in AM, 0 Refills, Maintenance, 02/15/19 8:13:10 EDT, CR Capsule Start Date: 02/15/19 Status: Ordered albuterol 0.021% inhalation solution 3 mL = 0.63 mg, Neb, Every 4 hours, PRN Wheezing/Shortness of Breath, 0 Refills, Maintenance, 04/26/17 13:38:30 Start Date: 04/26/17 Status: Ordered Ceftriaxone 2 gm Q24 Ceftriaxone 2 gm Q24, See Instructions, # 22 Unknown, Refills 0, Tot. Refills 0, Maintenance, daily, 02/06/20 14:52:00 EDT, Supply, 160, cm, 02/06/20 7:39:00 EDT, Height, 81.3, kg, 01/26/20 14:00:00 EDT, Dry Weight Start Date: 02/06/20 Stop Date: 02/27/20 Status: Ordered cloNIDine 0.1 mg oral tablet 0.1 mg, 1, tablet, By Mouth, 3 times a day, Refills 0, Maintenance, 04/26/17 13:44:41 Start Date: 04/26/17 Status: Ordered folic acid 1 mg oral tablet 1, tablet, By Mouth, Daily, # 30 tablet, Refills 4, Maintenance, 04/07/23 17:25:00 EDT, Route to Pharmacy Electronically, [facility], 160, cm, 12/21/21 10:36:00 EST, Height, 95.2, kg, 12/21/21 10:36:00 EST, Dry Weight Start Date: 04/07/23 Status: Ordered Gabapentin = 200 mg, By Mouth, 3 times a day, 0 Refills, Maintenance, 11/11/17 15:20:14 EST Start Date: 11/11/17 Status: Ordered ibuprofen 600 mg oral tablet 600 mg, 1, tablet, By Mouth, 4 times a day, PRN, # 40 tablet, Refills 3, Tot. Refills 3, Maintenance, Pain , Mild, 08/22/18 8:36:41 EDT, Route to Pharmacy Electronically, [id number], [facility] Start Date: 08/22/18 Status: Ordered KlonoPIN 1 mg oral tablet 1 tablet = 1 mg, By Mouth, 2 times a day, 0 Refills, Maintenance, 09/04/16 9:56:42 EDT, Tablet Start Date: 09/04/16 Status: Ordered lithium 450 mg oral tablet, extended release 1 tablet = 450 mg, By Mouth, 2 times a day, # 60 tablet, 0 Refills, Maintenance, 12/21/21 10:43:00 EST, ER Tablet, Partial fill upon patient request if the prescription is for a schedule II opioid drug. Start Date: 12/21/21 Status: Ordered pantoprazole 40 mg oral delayed release tablet = 40 mg, By Mouth, Daily, # 30 tablet, 0 Refills, Maintenance, 02/06/20 14:52:00 EDT, EC Tablet, 160, cm, 02/06/20 7:39:00 EDT, Height, 81.3, kg, 01/26/20 14:00:00 EDT, Dry Weight Start Date: 02/06/20 Stop Date: 03/07/20 Status: Ordered PrenaCare oral tablet 1 tablet, By Mouth, Daily, # 30 tablet, 0 Refills, Maintenance, 10/05/17 12:19:14, Tablet Start Date: 10/05/17 Status: Ordered Prilosec OTC = 20 mg, By Mouth, Daily, 0 Refills, Maintenance, 03/27/18 15:33:52 EDT Start Date: 03/27/18 Status: Ordered ProAir RespiClick 90 mcg/inh inhalation powder 2 puffs, Inhalation, Every 4 hours, PRN Wheezing/Shortness of Breath, 0 Refills, Maintenance, 04/26/17 13:40:41 Start Date: 04/26/17 Status: Ordered traZODone 100 mg oral tablet 100 mg, 1, tablet, By Mouth, 2 times a day, # 60 tablet, Refills 0, Maintenance, 12/21/21 10:43:00 EST, Partial fill upon patient request if the prescription is for a schedule II opioid drug. Start Date: 12/21/21 Status: Ordered Tylenol 325 mg oral capsule 1 capsule = 325 mg, By Mouth, 3 times a day, PRN as needed for pain, 0 Refills, Maintenance, 11/29/17 11:15:28 EST Start Date: 11/29/17 Status: Ordered Vraylar 6 mg oral capsule 1 capsule = 6 mg, By Mouth, Daily, 0 Refills, Maintenance, 01/29/20 14:21:00 EDT Start Date: 01/29/20 Status: Ordered Zoloft 100 mg oral tablet 2 tablet = 200 mg, By Mouth, Daily, # 90 tablet, 0 Refills, Maintenance, 12/21/21 10:43:00 EST, Tablet, Partial fill upon patient request if the prescription is for a schedule II opioid drug. Start Date: 12/21/21 Status: Ordered Problem List Condition Confirmation Course Effective Dates Status H ealth Status Informant Adult ADHD Confirmed Active Anemia Confirmed Active Bipolar disease with depression/anxiety with suicide attempt in 11/2017 - psychiatrist Dr. Narayan at [facility] Confirmed Active JOHNATHAN 3 on biopsies from 10/06/16 at [place] 1:00 and 11:00. Was supposed to have [...] signed august 2017 Confirmed Active Obese class II Confirmed Active Gestational hypertension Confirmed Active Smoker Confirmed Active Social History Social History Type Response Smoking Status Current every day sm oker; Type: Cigarettes; Other: Approximately 2 packs per day; Tobacco use times per day: 2ppd; entered on: 06/22/18 Sex Patient Care team information Care Team Personnel Name: Nicole Austin RN Position: [facility] RN Member Role: Primary Care Nurse Name: Nora Coppola RN Position: [facility] RN Member Role: Primary Care Nurse Name: Mark Yin RN Position: [facility] RN Member Role: Primary Care Nurse Name: Linda Ibrahim MD Position: [facility] Physician - Oncology Member Role: Lifetime Consulting Physician Address: Address: [address] [place] [address] [place] [address]- Name: So Ornelas RN Position: [facility] RN Member Role: Primary Care Nurse Name: Carlos Enrique Owens RN Position: [facility] RN Member Role: Primary Care Nurse Name: Melinda Shirley RN Position: [facility] public relations sales marketing Member Role: Primary Care Nurse Name: Rhoda Pina MD Position: [facility] Outreach Member Role: PCP Address: Address: [address] [place] [address]- [place] Name: Amy Berger RN Position: [facility] RN Member Role: Primary Care Nurse Name: Juan Tariq RN Position: [facility] RN Member Role: Primary Care Nurse Name: Owen Benton RN Position: [facility] OB RN Member Role: Primary Care Nurse Name: Moni Esquivel RN Position: S Outreach Member Role: Primary Care Nurse Name: Clark RNGordy Position: [facility] SN RN Member Role: Primary Care Nurse Care Team Related Persons Name: EWA LEON Address: AMERCN Address: home [address] [place] [address] [place] Address: temporary 0 Name: JOSE PIÑA Address: [place] [address] Name: PTSTATES, NONE
--- OUTSIDE RECORDS SUMMARY | 2024-09-10 16:01 | XMS_ITS | Continuity of Care Document ---
Author Organization [facility] ancer Care Address [address] [place] [address]- Care Team Providers Care Silk Brusher Name Role Phone Rhoda Pina MD Primary Care Physician [phone] Encounter [facility] Date(s): 02/01/24 - 03/02/[address] [address]- Allergies, Adverse Reactions, Alerts No Known Allergies [...] Refills, Soft Stop, 12/14/23 14:38:00 EST, Tablet, [facility], Partial fill upon patient request if [...] 01/09/24 11:56:00 EST, Route to Pharmacy Electronically, [facility], 160, cm, 01/03/24 13:34:00 EST, Height, [...] in 11/2017 - psychiatrist Dr. Narayan at [facility] Confirmed Active JOHNATHAN 3 on biopsies from 10/06/16 at [place] 1:00 and 11:00. Was supposed to have [...] Team Personnel Name: Nicole Austin RN Position: [facility] RN Member Role: Primary Care Nurse Name: Nora Coppola RN Position: [facility] RN Member Role: Primary Care Nurse Name: Darby Huntley RN Position: [facility] RN Member Role: Primary Care Nurse Name: Mark Yin RN Position: [facility] RN Member Role: Primary Care Nurse Name: Linda Ibrahim MD Position: [facility] Physician - Oncology Member Role: Lifetime Consulting Physician Address: Address: [address] [place] [address] [place] [address]- Name: Carlos Enrique Owens RN Position: [facility] RN Member Role: Primary Care Nurse Name: Melinda Shirley RN Position: [facility] dashboard developer Member Role: Primary Care Nurse Name: Rhoda Pina MD Position: [facility] Outreach Member Role: PCP Address: Address: [address] [place] [address]- Name: Amy Berger RN Position: [facility] RN Member Role: Primary Care Nurse Name: Juan Tariq RN Position: [facility] RN Member Role: Primary Care Nurse Name: Owen Benton RN Position: [facility] OB RN Member Role: Primary Care Nurse Name: Moni Esquivel RN Position: [facility] Outreach Member Role: Primary Care Nurse Name: aYhaira Sahni RN Position: [facility] RN Member Role: Primary Care Nurse Name: Adrianne Yusuf RN Position: [facility] RN Member Role: Primary Care Nurse Name: Gordy Rodas RN Position: [facility] SN RN Member Role: Primary Care Nurse Care Team Related Persons Name: EWA LEON Address: AMERCN Address: home [address] [place] [address] Address: temporary 0 Name: JOSE PIÑA Address: [place] [address] Name: PTSTATES, NONE
--- OUTSIDE RECORDS SUMMARY | 2024-09-10 16:01 | XMS_ITS | Continuity of Care Document ---
Author Organization [facility] ancer Care Address [address] [place] [address]- Care Team Providers Care Collar Turner Operator Name Role Phone Rhoda Pina MD Primary Care Physician [phone] Encounter [facility] Date(s): 12/15/23 - 01/14/[address] [address]- Allergies, Adverse Reactions, Alerts No Known Allergies [...] Refills, Soft Stop, 12/14/23 14:38:00 EST, Tablet, [facility], Partial fill upon patient request if [...] 01/09/24 11:56:00 EST, Route to Pharmacy Electronically, [facility], 160, cm, 01/03/24 13:34:00 EST, Height, [...] JOHNATHAN 3 on biopsies from 10/06/16 at [place] 1:00 and 11:00. Was supposed to have [...] Member Role: Lifetime Consulting Physician Address: Address: [address] [place] [address] [place] [address]- Name: Carlos Enrique Owens RN Position: [facility] RN Member Role: Primary Care Nurse Name: Melinda Shirley RN Position: [facility] beer merchant Member Role: Primary Care Nurse Name: Rhoda Pina MD Position: [facility] Outreach Member Role: PCP Address: Address: [address] [place] [address]- Name: Amy Berger RN [facility] Care Nurse Name: Adrianne Yusuf RN Position: [facility] RN Member Role: Primary Care Nurse Name: Gordy Rodas RN Position: [facility] SN RN Member Role: Primary Care Nurse Care Team Related Persons Name: EWA LEON Address: AMERCN Address: home [address] [place] [address] Address: temporary 0 Name: JOSE PIÑA Address: [place] [address] Name: PTSTATES, NONE
--- OUTSIDE RECORDS SUMMARY | 2024-09-10 16:01 | XMS_ITS | Continuity of Care Document ---
Author Organization [facility] ancer Care Address [address] [place] [address]- Care Team Providers Care Supervisor Dyer Name Role Phone hRoda Pina MD Primary Care Physician [phone] [place] [facility] Date(s): 04/04/24 - 05/04/[address] [address] Attending Physician: Floyd Dudley Admitting Physician: Floyd Dudley Referring Physician: AdmFloyd marshall Allergies, Adverse Reactions, Alerts No Known Allergies [...] Refills, Soft Stop, 12/14/23 14:38:00 EST, Tablet, [facility], Partial fill upon patient request if [...] 01/09/24 11:56:00 EST, Route to Pharmacy Electronically, [facility], 160, cm, 01/03/24 13:34:00 EST, Height, [...] JOHNATHAN 3 on biopsies from 10/06/16 at [place] 1:00 and 11:00. Was supposed to have [...] Team Personnel Name: Nicole Austin RN Position: [facility] RN Member Role: Primary Care Nurse Name: Nora Coppola RN Position: [facility] RN Member Role: Primary Care Nurse Name: Darby Huntley RN Position: [facility] RN Member Role: Primary Care Nurse Name: Mark Yin RN Position: [facility] RN Member Role: Primary Care Nurse Name: Linda Ibrahim MD Position: [facility] Physician - Oncology Member Role: Lifetime Consulting Physician Address: Address: [address] [place] [address] [place] [address]- Name: Carlos Enrique Owens RN Position: [facility] RN Member Role: Primary Care Nurse Name: Melinda Shirley RN Position: [facility] supervisor spinning Member Role: Primary Care Nurse Name: Rhoda Pina MD Position: [facility] Outreach Member Role: PCP Address: Address: [address] [place] [address]- [place] Name: Amy Berger RN Position: [facility] RN Member Role: Primary Care Nurse Name: Juan Tariq RN Position: [facility] RN Member Role: Primary Care Nurse Name: Owen Benton RN Position: [facility] OB RN Member Role: Primary Care Nurse Name: Moni Esquivel RN Position: [facility] Outreach Member Role: Primary Care Nurse Name: Yahaira Sahni RN Position: [facility] RN Member Role: Primary Care Nurse Name: Adrianne Yusuf RN Position: [facility] RN Member Role: Primary Care Nurse Name: Gordy Rodas RN Position: [facility] SN RN Member Role: Primary Care Nurse Care Team Related Persons Name: EWA LEON Address: AMERCN Address: [address] Address: temporary 0 Name: JOSE PIÑA Address: [place] [address] Name: PTSTATES, NONE
--- OUTSIDE RECORDS SUMMARY | 2024-09-10 16:02 | XMS_ITS | Continuity of Care Document ---
Author Organization [facility] Address [address], [address] [place] [address]- Care Team Providers Care Tool Smith Name Role Phone Rhoda Pina MD Primary Care Physician [phone] [place] [facility] [place]21[place]23 - 01/20/24 [facility] [address], [address] [place] [address]- Allergies, Adverse Reactions, Alerts No Known Allergies [...] Refills, Soft Stop, 12/14/23 14:38:00 EST, Tablet, [facility], Partial fill upon patient request if [...] 01/09/24 11:56:00 EST, Route to Pharmacy Electronically, [facility], 160, cm, 01/03/24 13:34:00 EST, Height, [...] in 11/2017 - psychiatrist Dr. Narayan at [facility] Confirmed Active JOHNATHAN 3 on biopsies from 10/06/16 at [place] 1:00 and 11:00. Was supposed to have [...] Name: Nicole Austin RN Position: [facility] RN Member Role: Primary Care Nurse Name: Nora Coppola RN Position: [facility] RN Member Role: Primary Care Nurse Name: Darby Huntley RN Position: [facility] RN Member Role: Primary Care Nurse Name: Mark Yin RN Position: [facility] RN Member Role: Primary Care Nurse Name: Linda Ibrahim MD Position: [facility] Physician - Oncology Member Role: Lifetime Consulting Physician Address: Address: [address] [place] [address] [place] [address]- Name: Carlos Enrique Owens RN Position: [facility] RN Member Role: Primary Care Nurse Name: Melinda Shirley RN Position: [facility] crystal cutter Member Role: Primary Care Nurse Name: Rhoda Pina MD Position: [facility] Outreach Member Role: PCP Address: Address: [address] [place] [id number]- Name: Amy Berger RN Position: [facility] RN Member Role: Primary Care Nurse Name: Juan Tariq RN Position: [facility] RN Member Role: Primary Care Nurse Name: Owen Benton RN Position: [facility] OB RN Member Role: Primary Care Nurse Name: Moni Esquivel RN Position: [facility] Outreach Member Role: Primary Care Nurse Name: Yahaira Sahni RN Position: [facility] RN Member Role: Primary Care Nurse Name: Adrianne Yusuf RN Position: [facility] RN Member Role: Primary Care Nurse Name: Corazon Rodas RNu Position: [facility] RN Member Role: Primary Care Nurse Care Team Related Persons Name: EWA LEON Address: [employer] Address: home [address] [place] [id number] Address: temporary 0 Name: JOSE PIÑA Address: [place] [address] Name: PTSTATES, NONE
[2024-09-10 16:08] VITALS: BP 132/74; PULSE 92; RESP 16; TEMP 36.4; O2SAT 97
--- NOTE | 2024-09-10 16:26 | PHA.MEDREC ---
Pharmacy Consult ? Medication Reconciliation Pharmacy has completed the medication reconciliation. Patient was transferred from S3 to M5. Med rec note from S3 and med administration record were used for this med rec.
[2024-09-10 18:11] VITALS: BMI 33.1
--- NOTE | 2024-09-10 18:35 | PC.ADMIT ---
Tammy (prefers Sera) arrived via wheelchair from [place] [id number]. She is alert and oriented x4. (per discharge summary) ---She is a 39-year-old with past medical history of mood disorder, asthma, hyperlipidemia with previous history of suicidal attempts presented to the ED after an overdose. When she presented to the ED she said that she took an unknown amount of gabapentin, Klonopin and clonidine. Later during her stay in the ED she became extremely unresponsive and difficult to awake. She received a dose of Narcan without any improvement in her mental status so MICU was consulted. (Hospital course) The patient was monitored in ICU for low blood pressure readings post suicide intention with drug overdose on her home medications she did not require intubation or pressors---Upon arrival on M5, she cooperated with skin/safety check, skin check remarkable for approximately 4 inch ecchymotic area on right forearm, from an old IV site . She is mostly happy that she survived, a small part of me is sad I wasnt successful , I am happy I can see my kids She denies any suicidal or homicidal ideations and any visual or perceptual disturbances. She will seek staff if that changes. She has not smoked in 18months, she has been sober for 16 years. She declines the flu vaccine and is on 15 minute safety checks.
[2024-09-10 20:00] VITALS: BP 149/79; PULSE 88; RESP 16; TEMP 36.7; O2SAT 97
[2024-09-10] MEDS: Ibuprofen 800 MG TABLET PO (21:32)
[2024-09-10] MEDS: cloNIDine HCL 0.1 MG TABLET PO (21:32)
[2024-09-10] MEDS: Lithium Carbonate 300 MG CAPSULE PO (21:32)
[2024-09-10] MEDS: lamoTRIgine 25 MG TABLET 150 MG PO (21:33)
[2024-09-10] MEDS: Mirtazapine 15 MG TABLET PO (21:33)
[2024-09-10] MEDS: clonazePAM 1 MG TABLET PO (21:33)
[2024-09-10] MEDS: Gabapentin 300 MG CAPSULE PO (21:33)
[2024-09-10] MEDS: Lithium Carbonate 300 MG TABLET 150 MG PO (21:33)
[2024-09-11] MEDS: Dextroamphetamine/Amphetamine XR 10 MG CAP.ER.24H 30 MG PO (06:29)
[2024-09-11 08:00] VITALS: BP 127/96; PULSE 106; RESP 18; TEMP 36.8; O2SAT 99
[2024-09-11] MEDS: Mirabegron 50 MG TAB.ER.24H PO (08:28)
[2024-09-11] MEDS: lamoTRIgine 100 MG TABLET PO (08:28)
[2024-09-11] MEDS: Escitalopram Oxalate 20 MG TABLET PO (08:28)
[2024-09-11] MEDS: Gabapentin 300 MG CAPSULE PO ×2 (08:28→20:22)
[2024-09-11] MEDS: Lithium Carbonate 300 MG CAPSULE PO ×2 (08:28→20:22)
[2024-09-11] MEDS: Cariprazine HCl 3 MG CAPSULE 6 MG PO (08:28)
[2024-09-11] MEDS: cloNIDine HCL 0.1 MG TABLET PO ×3 (08:29→20:23)
[2024-09-11] MEDS: clonazePAM 1 MG TABLET PO ×3 (08:29→20:19)
[2024-09-11] MEDS: Ibuprofen 800 MG TABLET PO ×2 (08:32→17:51)
[2024-09-11 08:47] LABS: Estimated Average Glucose 105 mg/dL; Hemoglobin A1C 136.3322 umol/L; Hemoglobin A1c % 5.3 % (<6.0); Total Hemoglobin (HGBA1C) 3908.9628 umol/L
[2024-09-11 08:56] LABS: Cholesterol 244 mg/dL (<200); HDL Cholesterol 39 mg/dL (>40); LDL Cholesterol Calculated 161 mg/dL (<100); Triglycerides 222 mg/dL (<150)
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
[2024-09-11 14:33] VITALS: BP 164/77
[2024-09-11] MEDS: Omeprazole 20 MG CAPSULE.DR PO (15:42)
[2024-09-11 20:00] VITALS: BP 130/82; PULSE 94; TEMP 36.6; O2SAT 96
[2024-09-11] MEDS: lamoTRIgine 25 MG TABLET 150 MG PO (20:19)
[2024-09-11] MEDS: Lithium Carbonate 300 MG TABLET 150 MG PO (20:21)
[2024-09-11] MEDS: Mirtazapine 15 MG TABLET PO (20:22)
[2024-09-11] MEDS: Cyclobenzaprine HCl 5 MG TABLET PO (20:22)
[2024-09-11 20:23] VITALS: BP 110/56
[2024-09-12] MEDS: Omeprazole 20 MG CAPSULE.DR PO (06:23)
[2024-09-12] MEDS: Dextroamphetamine/Amphetamine XR 10 MG CAP.ER.24H 30 MG PO (06:23)
[2024-09-12] MEDS: Cariprazine HCl 3 MG CAPSULE 6 MG PO (08:01)
[2024-09-12] MEDS: lamoTRIgine 100 MG TABLET PO (08:02)
[2024-09-12] MEDS: Lithium Carbonate 300 MG CAPSULE PO ×2 (08:02→21:06)
[2024-09-12] MEDS: Ibuprofen 800 MG TABLET PO ×2 (08:02→18:17)
[2024-09-12] MEDS: Gabapentin 300 MG CAPSULE PO ×2 (08:02→21:04)
[2024-09-12] MEDS: Mirabegron 50 MG TAB.ER.24H PO (08:02)
[2024-09-12] MEDS: Escitalopram Oxalate 20 MG TABLET PO (08:02)
[2024-09-12] MEDS: cloNIDine HCL 0.1 MG TABLET PO ×3 (08:02→21:05)
[2024-09-12] MEDS: clonazePAM 1 MG TABLET PO ×3 (08:02→21:03)
[2024-09-12] MEDS: Cholecalciferol (Vitamin D3) 25 MCG TABLET PO (08:02)
[2024-09-12 08:05] VITALS: BP 131/84; PULSE 90; RESP 18; TEMP 36.6; O2SAT 98
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
[2024-09-12 14:05] VITALS: BP 133/92
[2024-09-12 20:00] VITALS: BP 134/90; PULSE 112; RESP 16; TEMP 36.6; O2SAT 97
[2024-09-12] MEDS: Lithium Carbonate 300 MG TABLET 150 MG PO (21:04)
[2024-09-12 21:05] VITALS: BP 124/71
[2024-09-12] MEDS: Mirtazapine 15 MG TABLET PO (21:05)
[2024-09-12] MEDS: Cyclobenzaprine HCl 5 MG TABLET PO (21:06)
[2024-09-12] MEDS: lamoTRIgine 25 MG TABLET 150 MG PO (21:06)
[2024-09-13] MEDS: Omeprazole 20 MG CAPSULE.DR PO (06:20)
[2024-09-13] MEDS: Dextroamphetamine/Amphetamine XR 10 MG CAP.ER.24H 30 MG PO (06:20)
[2024-09-13] MEDS: clonazePAM 1 MG TABLET PO ×3 (08:19→20:03)
[2024-09-13] MEDS: cloNIDine HCL 0.1 MG TABLET PO ×3 (08:20→19:57)
[2024-09-13] MEDS: Gabapentin 300 MG CAPSULE PO ×2 (08:20→19:57)
[2024-09-13] MEDS: Tolterodine Tartrate LA 4 MG CAP.ER.24H PO (08:20)
[2024-09-13] MEDS: Escitalopram Oxalate 20 MG TABLET PO (08:20)
[2024-09-13] MEDS: Lithium Carbonate 300 MG CAPSULE PO ×2 (08:20→19:57)
[2024-09-13] MEDS: lamoTRIgine 100 MG TABLET PO (08:20)
[2024-09-13] MEDS: Mirabegron 50 MG TAB.ER.24H PO (08:20)
[2024-09-13] MEDS: Cholecalciferol (Vitamin D3) 25 MCG TABLET PO (08:20)
[2024-09-13] MEDS: Cariprazine HCl 3 MG CAPSULE 6 MG PO (08:20)
[2024-09-13] MEDS: Ibuprofen 800 MG TABLET PO ×3 (08:20→19:59)
[2024-09-13 08:24] VITALS: BP 119/86; PULSE 100; RESP 18; TEMP 36.6; O2SAT 98
[2024-09-13 09:44] VITALS: BMI 32.5
[2024-09-13 11:25] LABS: Lithium 1.33 mmol/L (0.60-1.20)
[2024-09-13 11:30] LABS: Blood Urea Nitrogen 6 mg/dL (9-16); Estimated Glomerular Filt Rate > 60
[2024-09-13 14:18] VITALS: BP 135/92
--- NOTE | 2024-09-13 15:50 | P.PNPSI_ITS ---
Subjective Subjective Date of Service: 09/13/24 Reason For Visit: suicide attempt Subjective Notes: Conditional Voluntary Healthcare Proxy: No Guardianship: No Medical Problems Affecting Mental Status: No Interim History: Planning discharge for 09/14. Denies SI/HI/AH/VH No sx of david, psychosis Discussed med regime, precipitants to admission and plans for improved coping upon discharge Medication Compliance: Yes Side effects from medications: No Attending Groups: Yes Review of Systems Acute medical concerns: No Medical Review of Systems: unchanged Review of Systems Review of Systems Denies Mental Status Exam Mental Status Exam Patient Appearance: Appropriate Patient Orientation: Person, Place, Time and Situation Level of Consciousness: Alert Patient Behavior: Appropriate, Talkative, Cooperative and Good Eye Contact Mood Description: Apprehensive Affect Description: Flat Patient Cognition Impaired: No Ability to Follow Directions: Good Speech Pattern: Spontaneous Speech Memory Description: Intact Hallucinations: None Delusions: Not Present Thought Process: Goal Oriented Thought Content: positive for Goal Oriented Depressive Symptoms: Low Self Esteem Judgement: Good Diagnostics Vital Signs (24Hr): Vital Signs - 24 hr 09/12/24 20:00 09/12/24 21:05 09/13/24 08:24 Temperature 97.8 F 97.9 F Pulse Rate 112 H 100 Respiratory Rate 16 18 Blood Pressure 134/90 H 124/71 119/86 Pulse Oximetry 97 98 Oxygen Delivery Method Room Air Room Air 09/13/24 14:18 Temperature Pulse Rate Respiratory Rate Blood Pressure 135/92 H Pulse Oximetry Oxygen Delivery Method BMI result Body Mass Index 32.5 Labs 09/13/24 10:39 Labs: Laboratory Results - last 48 hr 09/13/24 10:39 BUN 6 L Creatinine 0.80 Estim Creat Clear Calc 99.0 Estimated GFR > 60 Byron 1.33 H Medications Medications Current Medications Acetaminophen (Acetaminophen 325 Mg Tablet) 650 mg PO Q6H PRN PRN Reason: Headache/Pain Mild Scale (1-3) Al Hydroxide/Mg Hydroxide (Magnesium Hydrox/Alum Hydrox 30 Ml Oral.Susp) 30 ml PO Q6H PRN PRN Reason: Heartburn/Nausea Albuterol Sulfate (Albuterol Sulfate 90 Mcg 8 Gm Inhaler) 2 puff INHALE Q4H PRN PRN Reason: Shortness Of Breath Or Wheezing Amphetamine/Dextroamphetamine (Dextroamphetamine/Amphetamine Xr 10 Mg Cap.Er.24h) 30 mg PO DAILY@0630 [facility] Last Admin: 09/13/24 06:20 Dose: 30 mg Cariprazine (Cariprazine Hcl 3 Mg Capsule) 6 mg PO DAILY [facility] Last Admin: 09/13/24 08:20 Dose: 6 mg Clonazepam (Clonazepam 1 Mg Tablet) 1 mg PO TID PRN PRN Reason: Anxiety Last Admin: 09/13/24 14:18 Dose: 1 mg Clonidine HCl (Clonidine Hcl 0.1 Mg Tablet) 0.1 mg PO TID [facility]; Protocol Last Admin: 09/13/24 14:18 Dose: 0.1 mg Cyclobenzaprine HCl (Cyclobenzaprine Hcl 5 Mg Tablet) 5 mg PO BEDTIME [facility] Last Admin: 09/12/24 21:06 Dose: 5 mg Escitalopram Oxalate (Escitalopram Oxalate 20 Mg Tablet) 20 mg PO DAILY [facility] Last Admin: 09/13/24 08:20 Dose: 20 mg Folic Acid (Folic Acid 1 Mg Tablet) 2 mg PO DAILY [facility] Last Admin: 09/13/24 08:47 Dose: Not Given Gabapentin (Gabapentin 300 Mg Capsule) 300 mg PO BID [facility] Last Admin: 09/13/24 08:20 Dose: 300 mg Hydroxyzine HCl (Hydroxyzine Hcl 25 Mg Tablet) 25 mg PO Q6H PRN PRN Reason: Anxiety Ibuprofen (Ibuprofen 800 Mg Tablet) 800 mg PO TID PRN PRN Reason: Pain, Moderate(Pain Scale 4-6) Last Admin: 09/13/24 14:18 Dose: 800 mg Lamotrigine (Lamotrigine 25 Mg Tablet) 150 mg PO BEDTIME [facility] Last Admin: 09/12/24 21:06 Dose: 150 mg Lamotrigine (Lamotrigine 100 Mg Tablet) 100 mg PO DAILY [facility] Last Admin: 09/13/24 08:20 Dose: 100 mg Byron Carbonate (Byron Carbonate 300 Mg Tablet) 150 mg PO BEDTIME [facility] Last Admin: 09/12/24 21:04 Dose: 150 mg Byron Carbonate (Byron Carbonate 300 Mg Capsule) 300 mg PO BID [facility] Last Admin: 09/13/24 08:20 Dose: 300 mg Magnesium Hydroxide (Milk Of Magnesia 30 Ml Oral.Susp) 30 ml PO DAILY PRN PRN Reason: Constipation Mirabegron (Mirabegron 50 Mg Tab.Er.24h) 50 mg PO DAILY [facility] Last Admin: 09/13/24 08:20 Dose: 50 mg Mirtazapine (Mirtazapine 15 Mg Tablet) 15 mg PO BEDTIME [facility] Last Admin: 09/12/24 21:05 Dose: 15 mg Nicotine (Nicotine 21 Mg Patch.Td24) 21 mg TRANSDERMA DAILY PRN PRN Reason: smoking cessation Nicotine Polacrilex (Nicotine Polacrilex 2 Mg Gum) 4 mg BUCCAL Q2H PRN PRN Reason: Nicotine Cravings Omeprazole (Omeprazole 20 Mg Capsule.Dr) 20 mg PO DAILY@0630 [facility] Last Admin: 09/13/24 06:20 Dose: 20 mg Tolterodine Tartrate (Tolterodine Tartrate La 4 Mg Cap.Er.24h) 4 mg PO DAILY [facility] Last Admin: 09/13/24 08:20 Dose: 4 mg Trazodone HCl (Trazodone Hcl 50 Mg Tablet) 50 mg PO BEDTIME MRX1 PRN PRN Reason: Insomnia Vitamin D (Cholecalciferol (Vitamin D3) 25 Mcg Tablet) 25 mcg PO DAILY [facility] Last Admin: 09/13/24 08:20 Dose: 25 mcg Allergies Allergies Allergy/AdvReac Type Severity Reaction Status Date / Time No Known Allergies Allergy Verified 09/07/24 10:31 Assessment & Plan Assessment & Plan (1) Bipolar 2 disorder: Status: Inactive Code(s): F31.81 - Bipolar II disorder (2) Posttraumatic stress disorder: Status: Inactive Code(s): F43.10 - Post-traumatic stress disorder, unspecified (3) Borderline personality disorder: Status: Inactive Code(s): F60.3 - Borderline personality disorder (4) HLD (hyperlipidemia): Status: Acute Code(s): E78.5 - Hyperlipidemia, unspecified Plan Patient is a 39-year-old female with history of bipolar 2 disorder, PTSD, borderline personality disorder, polysubstance abuse in sustained remission (16 years) who presents following intentional overdose resulting in medical admission. Patient reports no psychiatric admissions since last November 2023. She says that over the past few months her mood started to decline and she was just feeling increasingly anxious. She feels significant portion of this was triggered by her current romantic relationship, feeling taken advantage by this person. Patient has remained consistent with her medications, having a VNA that comes daily. Still, Over the past month she started doubting her [facility] workers, feeling they did not really care about her or like her that much despite them telling her otherwise. Patient started feeling lonely. Her relationship with her partner remained upsetting to her and she felt he was being sneaky, not open with her. This past week her depression just increased as did her anxiety and she felt overwhelmed. Patient said I just wanted to numb myself so she took an overdose of Klonopin, clonidine and gabapentin. Patient denies that this was an intentional suicidal overdose and reiterates that was just to get a break from her overwhelming feelings and to numb herself. Patient said that she started to feel unwell, got worried so called [facility] worker herself to get her to the hospital. Patient reports that at this time she is feeling much better, back to her regular self. She is seen whenever [facility] workers today on the unit. She continues to deny any SI or HI or AVH and wants to continue other home medication regimen. Formulation/clinical reasoning: Patient has a history of mood dysregulation and emotional reactivity; she feels that her depression is situational and does not feel any need for medication changes. In fact patient is feeling back to her regular self. Patient continues to deny that overdose was intentional and is asking for discharge soon. Will continue to monitor for safety; however she remains stable will likely proceed with discharge as she has significant support in the community plan: cv q15min continue home meds 09/13/24 Pt planning discharge on 09/14/24. Denies SI, HI, AH, VH. No sx of david/psychosis. Informed Consent: understands Reason for continued inpatient stay Substantial Risk for: stable for discharge Time Spent With Patient Time: Total time managing care of this patient today ____ minutes.
[2024-09-13] MEDS: Lithium Carbonate 300 MG TABLET 150 MG PO (19:56)
[2024-09-13] MEDS: lamoTRIgine 25 MG TABLET 150 MG PO (19:56)
[2024-09-13 19:57] VITALS: BP 124/87
[2024-09-13] MEDS: Cyclobenzaprine HCl 5 MG TABLET PO (19:57)
[2024-09-13] MEDS: Mirtazapine 15 MG TABLET PO (19:57)
[2024-09-13 20:00] VITALS: BP 124/87; PULSE 93; TEMP 36.7; O2SAT 97
[2024-09-14] MEDS: Dextroamphetamine/Amphetamine XR 10 MG CAP.ER.24H 30 MG PO (06:03)
[2024-09-14] MEDS: Omeprazole 20 MG CAPSULE.DR PO (06:03)
[2024-09-14 08:00] VITALS: BP 139/88; PULSE 96; TEMP 36.6; O2SAT 98
[2024-09-14] MEDS: Cariprazine HCl 3 MG CAPSULE 6 MG PO (08:28)
[2024-09-14] MEDS: Mirabegron 50 MG TAB.ER.24H PO (08:28)
[2024-09-14] MEDS: Folic Acid 1 MG TABLET 2 MG PO (08:28)
[2024-09-14] MEDS: Escitalopram Oxalate 20 MG TABLET PO (08:28)
[2024-09-14] MEDS: clonazePAM 1 MG TABLET PO (08:29)
[2024-09-14] MEDS: Gabapentin 300 MG CAPSULE PO (08:29)
[2024-09-14] MEDS: Cholecalciferol (Vitamin D3) 25 MCG TABLET PO (08:29)
[2024-09-14] MEDS: lamoTRIgine 100 MG TABLET PO (08:29)
[2024-09-14] MEDS: cloNIDine HCL 0.1 MG TABLET PO (08:29)
[2024-09-14] MEDS: Tolterodine Tartrate LA 4 MG CAP.ER.24H PO (08:29)
[2024-09-14] MEDS: Ibuprofen 800 MG TABLET PO (08:31)
[2024-09-14 10:23] LABS: Lithium 0.99 mmol/L (0.60-1.20)
--- NOTE | 2024-09-14 16:05 | PM.PSYDC ---
DS: Providers Provider Date of Service: 09/14/24 Date of admission: 09/10/24 15:08 Date of discharge: 09/14/24 Primary care physician: Unknown Physician Admitting clinician: Owen Nayak Attending physician on admission: Owen Nayak Attending physician on discharge: Tom Beck Discharging clinician: Marcy Spencer DS: Diagnosis Discharge Diagnosis (1) Bipolar 2 disorder: Status: Inactive (2) Posttraumatic stress disorder: Status: Inactive (3) Borderline personality disorder: Status: Inactive (4) HLD (hyperlipidemia): Status: Acute DS: Medications Discharge Medications Home Medications: Home Medications ?Medication ?Instructions ?Recorded ?Confirmed albuterol sulfate 90 mcg/actuation 2 puff inhalation Q4H PRN 09/07/24 09/10/24 aerosol inhaler Shortness Of Breath Or Wheezing cariprazine 6 mg capsule (Vraylar) 6 mg PO DAILY 09/07/24 09/10/24 cholecalciferol (vitamin D3) 25 25 mcg PO DAILY 09/07/24 09/10/24 mcg (1,000 unit) tablet clonazepam 1 mg tablet 1 mg PO TID PRN Anxiety 09/07/24 09/10/24 clonidine HCl 0.1 mg tablet 0.1 mg PO TID 09/07/24 09/10/24 cyclobenzaprine 5 mg tablet 5 mg PO BEDTIME Muscle Spasm 09/07/24 09/10/24 dextroamphetamine-amphetamine ER 1 cap PO DAILY 09/07/24 09/10/24 30 mg 24hr capsule,extend release docusate sodium 100 mg capsule 100 mg PO BID PRN Constipation 09/07/24 09/10/24 escitalopram oxalate 20 mg tablet 20 mg PO DAILY 09/07/24 09/10/24 esomeprazole magnesium 40 mg 40 mg PO DAILY@0630 09/07/24 09/10/24 capsule,delayed release folic acid 1 mg tablet 2 mg PO DAILY 09/07/24 09/10/24 gabapentin 300 mg capsule 300 mg PO BID 09/07/24 09/10/24 ibuprofen 800 mg tablet 800 mg PO TID 09/07/24 09/10/24 lamotrigine 100 mg tablet 100 mg PO DAILY 09/07/24 09/10/24 lamotrigine 150 mg tablet 150 mg PO BEDTIME 09/07/24 09/10/24 lithium carbonate 150 mg capsule 150 mg PO BEDTIME 09/07/24 09/10/24 lithium carbonate 300 mg capsule 300 mg PO BID 09/07/24 09/10/24 loratadine 10 mg tablet 10 mg PO DAILY 09/07/24 09/10/24 mirabegron 50 mg tablet,extended 50 mg PO DAILY 09/07/24 09/10/24 release 24 hr (Myrbetriq) simvastatin 40 mg tablet 40 mg PO BEDTIME 09/07/24 09/10/24 trazodone 50 mg tablet 50 mg PO BEDTIME PRN Sleep 09/07/24 09/10/24 Previous Rx's ?Medication ?Instructions ?Recorded mirtazapine 15 mg tablet 15 mg PO BEDTIME #30 tabs 09/14/24 tolterodine 4 mg capsule,extended 4 mg PO DAILY #30 caps 09/14/24 release 24 hr Mental Status Exam Mental Status Exam Patient Appearance: Appropriate Patient Orientation: Person, Place, Time and Situation Level of Consciousness: Alert Patient Behavior: Appropriate, Talkative, Cooperative and Good Eye Contact Mood Description: Apprehensive Affect Description: Flat Patient Cognition Impaired: No Ability to Follow Directions: Good Speech Pattern: Spontaneous Speech Memory Description: Intact Hallucinations: None Delusions: Not Present Thought Process: Goal Oriented Thought Content: positive for Goal Oriented Depressive Symptoms: Low Self Esteem Judgement: Good Data Data Completed and Pending Completed studies during hospitalization [Text1]: 09/11/24 09/11/24 09/13/24 08:17 08:18 10:39 BUN 6 L Creatinine 0.80 Estim Creat Clear Calc 99.0 Estimated GFR > 60 Estimat Average Glucose 105 Hemoglobin A1c % 5.3 Triglycerides 222 H Cholesterol 244 H LDL Cholesterol, Calc 161 H HDL Cholesterol 39 L Lamotrigine Pending Sidman 0.80 1.33 H 09/14/24 09:28 BUN Creatinine Estim Creat Clear Calc Estimated GFR Estimat Average Glucose Hemoglobin A1c % Triglycerides Cholesterol LDL Cholesterol, Calc HDL Cholesterol Lamotrigine Sidman 0.99 DS: Summary Hospital Course Hospital Course: Admission to adult psychiatry in transfer from medicine s/p overdose of klonopin, clonidine, gabapentin. She identifies relationship stress and disconnection from supports as the main precipitants. Pt reports hx of Bipolar II, PTSD, Borderline Personality Disorder. She reports being sober for 16 years. Medications were evaluated and adjusted. Pt was able to utilize the milieu for added support. She will return to her out patient team with [facility] and will attend [facility] Program to further process stressors precipitating current admission. Please refer to Dr. Nayak's admission note for further details regarding precipitant to admission. Status at Discharge Functional status at discharge: independent ambulation Overall status at discharge: patient is progressing back to baseline Time Spent with Patient Time attestation: Total time managing care of this patient today ____ minutes. Time spent: Less than 30 minutes Discharge Plan Discharge Anticipated Discharge Date/Time: 09/14/24 12:00 Patient Disposition: Home, Self-Care Discharge Diagnosis: PTSD Bipolar Disorder, Type 2 Borderline Personality Disorder Hyperlipidemia Referrals: [facility] Partial Hospitalization Program (PHP) Intake [Other] - 10/03/24 11:00 am (You will be the 1st person on the cancelation list, Mary Grace will call you if an early intake appointment is available ) [facility] [Other] - 09/18/24 10:00 am [facility] [Other] - 1 Week (you have an appointment scheduled for November 08, please call to follow up if you have not heard in one week ) Rhoda Pnia MD [Physician] - 09/18/24 2:45 pm (In office visit ) Discharge Medications: New tolterodine 4 mg Capsule,Extended Release 24hr 4 mg PO DAILY Qty: 30 0RF mirtazapine 15 mg Tablet 15 mg PO BEDTIME Qty: 30 0RF Continued clonidine HCl 0.1 mg tablet 0.1 mg PO TID trazodone 50 mg tablet 50 mg PO BEDTIME PRN (Reason: Sleep) ibuprofen 800 mg tablet 800 mg PO TID clonazepam 1 mg tablet 1 mg PO TID PRN (Reason: Anxiety) lithium carbonate 150 mg capsule 150 mg PO BEDTIME simvastatin 40 mg tablet 40 mg PO BEDTIME lithium carbonate 300 mg capsule 300 mg PO BID esomeprazole magnesium 40 mg capsule,delayed release(DR/EC) 40 mg PO DAILY@0630 gabapentin 300 mg capsule 300 mg PO BID dextroamphetamine-amphetamine 30 mg capsule,extended release 24hr 1 cap PO DAILY lamotrigine 100 mg tablet 100 mg PO DAILY escitalopram oxalate 20 mg tablet 20 mg PO DAILY cyclobenzaprine 5 mg tablet 5 mg PO BEDTIME cholecalciferol (vitamin D3) 25 mcg (1,000 unit) tablet 25 mcg PO DAILY mirabegron [Myrbetriq] 50 mg tablet extended release 24 hr 50 mg PO DAILY Vraylar 6 mg capsule 6 mg PO DAILY lamotrigine 150 mg tablet 150 mg PO BEDTIME docusate sodium 100 mg Capsule 100 mg PO BID PRN (Reason: Constipation) folic acid 1 mg tablet 2 mg PO DAILY albuterol sulfate 90 mcg/actuation HFA aerosol inhaler 2 puff inhalation Q4H PRN (Reason: Shortness Of Breath Or Wheezing) loratadine 10 mg tablet 10 mg PO DAILY Discontinued solifenacin 5 mg tablet 5 mg PO DAILY Discharge Orders: Discharge Order (Routine); Ordered 09/14/24 Ordered By: Marcy Spencer Diet: Advance to usual diet Activity on Discharge: As tolerated Stand Alone Forms: Patient Portal Discharge page, Community Support Print Language: Ugandan Care Plan Goals: Mood and Behavioral Stabilization Health Concerns: Mood and Behavioral Stabilization Plan of Treatment: Attend scheduled appointments Take medications as directed Assessment: Denies SI/HI/AH/VH No sx of david or psychosis Tammy reports feeling ready to discharge and is able to contract for her safety. She is aware that she may call/return as needed. Discharge Date/Time: 09/14/24 10:52
[2024-09-15 09:49] LABS: Lamotrigine Lamictal 6.3 mcg/mL (2.5-15.0)
== END 2024-09-14 10:52 | disposition home or self-care (01) | DRG 885 ==
PROVIDERS: Clinical Nurse Specialist Psychiatric/Mental Health, Adult; Psychiatry & Neurology Psychiatry; Admitting Provider Psychiatry & Neurology Psychiatry; Visit Provider Psychiatry & Neurology Psychiatry
DX: F31.81 Bipolar II disorder (principal); R45.851 Suicidal ideations; F43.10 Post-traumatic stress disorder, unspecified; F19.11 Other psychoactive substance abuse, in remission; F60.3 Borderline personality disorder; E78.5 Hyperlipidemia, unspecified; Z91.51 Personal history of suicidal behavior; Z87.891 Personal history of nicotine dependence; Z79.899 Other long term (current) drug therapy
CPT/HCPCS: 36415; 80061; 80175; 80178; 82565; 83036; 84520

== ENCOUNTER → 2024-09-10 15:08 | Outpatient (BNV) | payer MEDICARE, MEDICAID, SELFPAY | PROVIDERS: Admitting Provider Psychiatry & Neurology Psychiatry; Visit Provider Psychiatry & Neurology Psychiatry | DX: F60.3 Borderline personality disorder (principal); F31.81 Bipolar II disorder; F43.10 Post-traumatic stress disorder, unspecified; E78.5 Hyperlipidemia, unspecified | CPT/HCPCS: 99231; 99238 ==

== ENCOUNTER 2024-09-27 09:19 | Outpatient (REF) | payer MEDICARE, MEDICAID, SELFPAY ==
[2024-09-27 10:43] LABS: Lithium 0.61 mmol/L (0.60-1.20)
== END 2024-09-27 09:20 | disposition home or self-care (01) ==
LOC: HO.LAB 09:19
PROVIDERS: PCP Student in an Organized Health Care Education/Training Program; Visit Provider Psychiatry & Neurology Psychiatry
DX: Z79.899 Other long term (current) drug therapy (principal)
CPT/HCPCS: 36415; 80178

== ENCOUNTER 2024-10-04 15:42 | Emergency (ER) | payer MEDICARE, MEDICAID, SELFPAY ==
[2024-10-04] VITALS (26 sets, daily range): BP systolic 105–132; BP diastolic 47–105; PULSE 64–96; RESP 13–22; TEMP 36.5–37.1; O2SAT 92–100; BMI 34.7
--- NOTE | ~2024-10-04 | XR_ITS ---
EXAMINATION: XR CHEST CLINICAL INFORMATION: Shortness of breath. Cough. COMPARISON: Most recent chest radiograph dated 01/26/2023. TECHNIQUE: 2 views of the chest were obtained. FINDINGS: The lungs are clear. The cardiomediastinal silhouette is normal in size. There is no pleural effusion or pneumothorax. No acute osseous abnormality. XR/XR chest 2V IMPRESSION: No acute cardiopulmonary findings. Electronically signed by: Ab Starr MD 10/04/2024 04:26 PM [facility]
--- NOTE | ~2024-10-04 | CT_ITS ---
EXAMINATION: CT CHEST WITH CONTRAST CLINICAL INFORMATION: Hypoxia, wheezing, short of breath COMPARISON: Chest radiograph from earlier in the same day, CTA chest 03/24/2019 TECHNIQUE: Multidetector volumetric CT imaging of the chest was obtained after the administration of 85 mL of Omnipaque 350 intravenous contrast without immediate adverse reactions. Axial MIP volume rendering provided. Sagittal and coronal reformatted images were obtained. This CT examination was performed using dose optimization techniques as appropriate, variously including the following: *Automated exposure control *Adjustment of mA and/or kV according to patient size (this includes techniques or standardized protocols for targeted exams where dose is matched to indication/reason for exam; i.e. extremities or head) *Use of iterative reconstruction technique DLP: 328 mGy-cm FINDINGS: LUNGS: There is diffuse bronchial wall thickening with areas of streaky atelectasis in both lungs. There is no dense consolidation. There is a 4.5 mm nodule in the right lower lobe (245/509) and a rectangular nodule in the subpleural right lower lobe measuring 4 mm (273/509). There is a polygonal 5 mm nodule in the left lower lobe (5, 261/509). Right upper lobe 4 mm subpleural nodule opacity adjacent to the right heart border (197/509 some additional scattered micronodules. MEDIASTINUM: The heart size is normal. There is no pericardial effusion. No mediastinal lymphadenopathy. Thyroid is unremarkable. PLEURA: There is no pleural effusion. No pleural mass or thickening. AXILLA: No lymphadenopathy. UPPER ABDOMEN: There are postsurgical changes at the gastroesophageal junction with a moderate hiatal hernia present. Spleen is not visualized. Hepatic steatosis. OSSEOUS STRUCTURES: Mild degenerative changes in the spine. CT/CT chest w IV con IMPRESSION: 1. There is diffuse bronchial wall thickening suggesting underlying small airways disease. There are areas of streaky atelectasis in both lungs. No dense consolidation. 2. There are bilateral, polygonal pulmonary nodules, the largest measuring 5 mm in the left lower lobe. The appearance of the nodules would favor infectious/inflammatory nodules. According to the UPDATED 2017 Fleischner Society recommendations, the advised follow-up imaging for nodules <6mm in the upper lobes is not necessarily required in low-risk patients. In high-risk patients with a nodule in the upper lobe and/or demonstrating suspicious morphology, an optional CT follow-up at 12 months may be obtained. If stable at 12 months, no further follow-up is recommended. 3. Postsurgical changes at the gastroesophageal junction with a moderate hiatal hernia present. 4. Hepatic steatosis. The spleen is not visualized. Fleischner guidelines were followed. Electronically signed by: Karan Reno MD 10/04/2024 07:48 PM [facility]
--- NOTE | 2024-10-04 15:51 | ED.GENADULT ---
HPI - General Adult General Chief complaint: Upper Respiratory Symptoms Stated complaint: congestion cough,sob Time Seen by Provider: 10/04/24 15:56 Source: patient Mode of arrival: ambulatory Limitations: no limitations History of Present Illness ED Provider: Nicole Olivia NP HPI narrative: Patient is a 39-year-old female presents emergency department for evaluation of shortness of breath with onset of symptoms yesterday. She has used her albuterol inhaler without much improvement. She unfortunately ran out of her nebulizer solution approximately 1 month ago, did not contain a refill from her doctor. She denies any known sick contacts. She has been experiencing a intermittently productive cough associated with this. Denies fevers, chills, headache, dizziness, neck pain, neck stiffness, chest pain, sore throat, nausea, vomiting, abdominal pain, numbness or tingling of the extremities, genitourinary symptoms. Related Data Home Medications ?Medication ?Instructions ?Recorded ?Confirmed albuterol sulfate 90 mcg/actuation 2 puff inhalation Q4H PRN 09/07/24 09/10/24 aerosol inhaler Shortness Of Breath Or Wheezing cariprazine 6 mg capsule (Vraylar) 6 mg PO DAILY 09/07/24 09/10/24 cholecalciferol (vitamin D3) 25 25 mcg PO DAILY 09/07/24 09/10/24 mcg (1,000 unit) tablet clonazepam 1 mg tablet 1 mg PO TID PRN Anxiety 09/07/24 09/10/24 clonidine HCl 0.1 mg tablet 0.1 mg PO TID 09/07/24 09/10/24 cyclobenzaprine 5 mg tablet 5 mg PO BEDTIME Muscle Spasm 09/07/24 09/10/24 dextroamphetamine-amphetamine ER 1 cap PO DAILY 09/07/24 09/10/24 30 mg 24hr capsule,extend release docusate sodium 100 mg capsule 100 mg PO BID PRN Constipation 09/07/24 09/10/24 escitalopram oxalate 20 mg tablet 20 mg PO DAILY 09/07/24 09/10/24 esomeprazole magnesium 40 mg 40 mg PO DAILY@0630 09/07/24 09/10/24 capsule,delayed release folic acid 1 mg tablet 2 mg PO DAILY 09/07/24 09/10/24 gabapentin 300 mg capsule 300 mg PO BID 09/07/24 09/10/24 ibuprofen 800 mg tablet 800 mg PO TID 09/07/24 09/10/24 lamotrigine 100 mg tablet 100 mg PO DAILY 09/07/24 09/10/24 lamotrigine 150 mg tablet 150 mg PO BEDTIME 09/07/24 09/10/24 lithium carbonate 150 mg capsule 150 mg PO BEDTIME 09/07/24 09/10/24 lithium carbonate 300 mg capsule 300 mg PO BID 09/07/24 09/10/24 loratadine 10 mg tablet 10 mg PO DAILY 09/07/24 09/10/24 mirabegron 50 mg tablet,extended 50 mg PO DAILY 09/07/24 09/10/24 release 24 hr (Myrbetriq) simvastatin 40 mg tablet 40 mg PO BEDTIME 09/07/24 09/10/24 trazodone 50 mg tablet 50 mg PO BEDTIME PRN Sleep 09/07/24 09/10/24 Previous Rx's ?Medication ?Instructions ?Recorded mirtazapine 15 mg tablet 15 mg PO BEDTIME #30 tabs 09/14/24 tolterodine 4 mg capsule,extended 4 mg PO DAILY #30 caps 09/14/24 release 24 hr albuterol sulfate 0.63 mg/3 mL 0.63 mg (3 mL) inhalation QID PRN 10/04/24 solution for nebulization shortness of breath or wheezing #90 mL azithromycin 250 mg tablet See Rx Instructions PO .COMPLEX #6 10/04/24 tabs prednisone 20 mg tablet 40 mg (2 x 20 mg) PO DAILY #8 tabs 10/04/24 Allergies Allergy/AdvReac Type Severity Reaction Status Date / Time No Known Allergies Allergy Verified 10/04/24 15:53 Review of Systems Review of Systems: Yes all other systems are reviewed and are negative [facility] Past Medical History Attestation statement: The following information was validated with the patient. Source: old records reviewed Medical History Borderline personality disorder Bipolar 2 disorder MDD (major depressive disorder), recurrent severe, without psychosis Pre-op evaluation Seasonal allergies Urinary frequency Incontinence HLD (hyperlipidemia) Clonidine overdose Polysubstance overdose Asthma Bronchitis Smoker Posttraumatic stress disorder Borderline personality disorder Bipolar disorder, unspecified B12 deficiency Anemia Migraines Cervical cancer COPD (chronic obstructive pulmonary disease) Depression Anxiety Surgical History History of esophagogastroduodenoscopy (EGD) History of bilateral tubal ligation History of total splenectomy Family History Family History Father No problems noted. Mother No problems noted. Social History Social History Household Members: Children and Friend(s) Housing: Apartment Do you presently have visiting nurse or other home services: Yes ([facility] outreach librarian) Unable to assess alcohol history related to: Unknown Alcohol intake: never Comment: 1:1 sitter Patient Tobacco Use Status: Former Tobacco user Tobacco use type: Cigarette Cigarette Packs Per Day: 1.5 Cigarettes Per Day: 30.0 Years Smoked: 15 Quit February 2023 e-Cigarette/Vaping Use: Never Used Second Hand Smoke Exposure: No Use of substances other than those prescribed or required for medical reasons: Unknown Substance Use Type: Marijuana and Caffiene Advance Directives: No Advance Directives Information Provided: No service: No Current occupational status: disabled 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 Sexual orientation: Straight/Heterosexual Physical Exam ED Vital Signs: Vital Signs - 24 hr 10/04/24 15:51 10/04/24 16:24 10/04/24 18:19 Temperature 98.1 F Pulse Rate 91 64 86 Respiratory Rate 18 22 H 15 Blood Pressure 130/72 119/64 Pulse Oximetry 96 99 Oxygen Delivery Method Room Air Nasal Cannula Oxygen Flow Rate 2 10/04/24 18:40 10/04/24 18:40 10/04/24 18:56 Temperature Pulse Rate 86 88 82 Respiratory Rate 16 17 17 Blood Pressure 123/71 123/71 123/63 Pulse Oximetry 94 95 95 Oxygen Delivery Method Nasal Cannula Room Air Nasal Cannula Oxygen Flow Rate 2 2 10/04/24 19:17 10/04/24 19:18 10/04/24 19:19 Temperature Pulse Rate 86 89 Respiratory Rate 17 16 Blood Pressure 119/64 Pulse Oximetry 100 98 99 Oxygen Delivery Method Nasal Cannula Nasal Cannula Nasal Cannula Oxygen Flow Rate 2 2 10/04/24 19:25 10/04/24 20:25 10/04/24 20:36 Temperature 97.7 F Pulse Rate 86 96 86 Respiratory Rate 14 16 18 Blood Pressure 116/63 113/77 114/73 Pulse Oximetry 99 95 95 Oxygen Delivery Method Nasal Cannula Room Air Nasal Cannula Oxygen Flow Rate 2 2 10/04/24 21:35 Temperature Pulse Rate 86 Respiratory Rate 18 Blood Pressure Pulse Oximetry Oxygen Delivery Method Oxygen Flow Rate BMI result Body Mass Index 34.7 Appearance: Alert.?Oriented to person, place and time. No acute distress.?Normal affect. Eyes: Pupils equal, round and reactive to light.? ENT: TM normal bilaterally. Pharynx normal.?? Neck: Normal inspection.? Neck supple.??No cervical adenopathy CVS: Heart sounds normal. Normal heart rate and rhythm.? Pulses normal.?? Respiratory: No respiratory distress.? Lung sounds coarse expiratory wheezing bilaterally?throughout? Abdomen: Soft and non-tender. Normoactive bowel sounds. Skin: Skin warm and dry.? Normal skin color.? ? Extremities: No lower extremity edema.? Neuro: Moves all extremities spontaneously. Sensation intact bilaterally. No motor deficits. Ambulates with normal steady gait. Course Course Course Narrative: This is a rapid medical exam performed by Nicolasa Irving NP: Additional HPI, ROS, PE not included below will be deferred to primary provider. Patient is a 39-year-old female with history of asthma presenting to the ED with complaint of shortness of breath since yesterday. Using inhaler without relief. Does not have albuterol for nebulizer. Plan: viral serology, ed bronch protocol, cxr Reevaluation(s) Reevaluation #1: After receiving nebulizer treatment, O2 saturation at rest was noted to be 92%, ambulatory O2 trial saturation as low as 88%. Patient to receive 2 g magnesium sulfate IV and will reassess. She reports feeling a slight improvement in her breathing after receiving the initial nebulizer. Time: 17:09 Reevaluation #2: Patient has received magnesium sulfate IV, at rest O2 saturation is noted to drop down to 88%. Remains with coarse expiratory wheezing. Placed on 2 L via nasal cannula with O2 saturation up to 94%. Order for additional albuterol nebulizer. CBC revealing a leukocytosis of 19,500, with left shift, chronic thrombocytosis. No electrolyte derangement. No SHERI.. Obtaining chest CT for further evaluation, will cover with rocephin. Lactic acid and blood cultures being obtained. Sepsis alert called. Who presents she is not hypotensive. Patient to receive 1 L normal saline IV fluid Time: 18:14 Reevaluation #3: Patient reports at this time she is experiencing diffuse anterior chest pain particularly during episodes of cough. EKG reveals a normal sinus rhythm with ventricular rate of 79, QTC 419, no ST elevation, no ST depression. Patient signed out to my attending pending CT chest, additional albuterol nebulizer, lactic acid, and re-evaluation Additional Reevaluation(s): 23:01 The patient was signed out to me by the nurse practitioner. The CT of the chest is negative. The patient continues to have wheezes with a prolonged expiratory phase but seems to look better and feel better and have increased air entry. Her room air oxygen saturation at rest is 93-95%. Her room air oxygenation when walking around was 91%. I think she is sufficiently improved that she will be discharged. She will be prescribed outpatient prednisone and azithromycin and also given supplemental albuterol for her nebulizer machine. Medications Administered Discontinued Medications Generic Name Dose Route Start Last Admin Trade Name Freq PRN Reason Stop Dose Admin Acetaminophen 975 mg 10/04/24 22:34 10/04/24 22:41 Acetaminophen 325 Mg Tablet PO 10/04/24 22:35 975 mg ONCE ONE Administration Ceftriaxone Sodium 1 gm 10/04/24 18:14 10/04/24 18:34 Ceftriaxone Sodium 1 Gm Vial IVPUSH 10/04/24 18:15 1 gm ONCE ONE Administration Albuterol Sulfate 5 mg/ 0 mg 10/04/24 16:14 10/04/24 16:17 Albuterol/Ipratropium 3 ml INHALE 10/04/24 16:15 1 each ONCE ONE Administration Albuterol Sulfate 2.5 mg/ 0 mg 10/04/24 21:19 10/04/24 21:33 Albuterol/Ipratropium 3 ml INHALE 10/04/24 21:20 3.5 dose ONCE ONE Administration Magnesium Sulfate 2 gm in 50 mls @ 25 mls/hr 10/04/24 17:07 10/04/24 18:20 Magnesium Sulfate/H2o IV 10/04/24 19:06 Infused ONCE ONE Infusion Sodium Chloride 1,000 mls @ 999 mls/hr 10/04/24 18:15 10/04/24 20:21 Ns IV 10/04/24 19:15 Infused .Q1H1M JOSE Infusion Ibuprofen 400 mg 10/04/24 22:34 10/04/24 22:43 Ibuprofen 400 Mg Tablet PO 10/04/24 22:35 Not Given ONCE ONE Iohexol 85 ml 10/04/24 19:17 10/04/24 19:18 Iohexol 350 Mg/Ml 100 Ml Infus..Btl IV 10/04/24 19:18 85 ml ONCE ONE Administration Prednisone 60 mg 10/04/24 16:09 10/04/24 16:46 Prednisone 20 Mg Tablet PO 10/04/24 16:10 60 mg ONCE ONE Administration Medical Decision Making Medical Decision Making MDM Narrative: Patient is a 39-year-old female with past medical history of chronic bronchial asthma on Pulmicort and albuterol, prior tobacco smoker with cessation 1.5 years ago, hyperlipidemia, GERD, hiatal hernia, bipolar disorder, PTSD, borderline personality disorder presenting for evaluation of shortness of breath cough and wheezing with onset yesterday. COVID-19 /RSV/influenza testing is negative. Upon initial evaluation has audible coarse expiratory wheezing throughout, no tripoding, use of accessory muscle usage or hypoxia, ED broch protocol was ordered, she received albuterol 7.5 mg nebulizer treatment in addition to 60 mg of prednisone orally. CXR was obtained to evaluate for consolidation/infiltrate to suggest a pneumonia versus reactive airway disease is without evidence, no acute pathology. At this time history and physical exam not consistent with ACS no active chest pain / PE Wells score low risk. Overall she appears fatigued, however afebrile, no tachycardia or tachypnea/hypoxia. Speaking clear full sentences, ambulatory with steady gait however she does feel dyspneic upon walking. Differential Diagnosis Differential Diagnoses: The differential diagnosis associated with the presentation includes ( See narrative above) Admission/Observation Consideration of admission/observation: Escalation of care including admission/observation considered ( see narrative above) Lab Data [facility] Lab Attestation statement: I reviewed the patient's lab results. ( see narrative above) 10/04/24 17:48 10/04/24 17:48 Labs: Lab Results 10/04/24 10/04/24 10/04/24 Range/Units 15:58 17:48 18:28 WBC 19.5 H (4.8-10.8) X10*3/uL RBC 4.09 L (4.20-5.50) X10*6/uL Hgb 13.2 (12.0-16.0) g/dl Hct 37.4 (37.0-47.0) % MCV 91.4 (80.0-98.0) fL MCH 32.3 (27.0-33.0) pg MCHC 35.3 H (31.0-35.0) g/dl RDW 13.5 (11.0-16.0) % Plt Count 557 H D (160-400) X10*3/uL MPV 9.8 (9.4-12.3) fL Immature Gran % (Auto) Cancelled Neut % (Auto) Cancelled Lymph % (Auto) Cancelled [place] % (Auto) Cancelled Eos % (Auto) Cancelled Baso % (Auto) Cancelled Lymph # (Auto) Cancelled [place] # (Auto) Cancelled Eos # (Auto) Cancelled Baso # (Auto) Cancelled Abs Immat Gran (auto) Cancelled Absolute Neuts (auto) Cancelled Absolute Nucleated RBC 0.000 (0.0-0.012) X10*3/uL Nucleated RBC % (auto) 0.0 (0.0-0.2) /100WBC Neutrophils % (Manual) 71 (45-73) % Band Neutrophils % 0 L (3-5) % Lymphocytes % (Manual) 21 (20-40) % Monocytes % (Manual) 3 (2-11) % Eosinophils % (Manual) 3 (0-4) % Basophils % (Manual) 2 (0-2) % Abs Neuts (Manual) 13.8 H (2.0-8.3) X10*3/uL Lymphocytes # (Manual) 4.1 (1.2-4.9) X10*3/uL Monocytes # (Manual) 0.6 (0.1-1.2) X10*3/uL Eosinophils # (Manual) 0.6 H (0.0-0.4) X10*3/uL Basophils # (Manual) 0.4 H (0.0-0.2) X10*3/uL Platelet Estimate SLIGHTLY INCREASED (NORMAL) Plt Morphology Comment NORMAL RBC Morphology NOTED Acanthocytes (Spur) 3+ (>5) /OIF Schistocytes 1+ (0-2) /OIF Sodium 138 (135-145) mmol/L Potassium 3.8 (3.3-5.1) mmol/L Chloride 107 (96-108) mmol/L Carbon Dioxide 20 L (22-29) mmol/L Anion Gap 15 (12-20) BUN 7 L (9-16) mg/dL Creatinine 0.81 (0.5-1.4) mg/dL Estim Creat Clear Calc 97.6 Estimated GFR > 60 Random Glucose 126 H (60-115) mg/dL Lactic Acid 2.1 H* (0.5-2.0) mmol/L Lactic Acid F/U @ 2Hr (0.5-2.0) mmol/L Calcium 9.3 (8.4-10.2) mg/dL Magnesium 2.0 (1.6-2.6) mg/dL C-Reactive Protein 1.65 H (< or = 0.50) mg/dL Influenza Type A (PCR) NEGATIVE (Negative) Influenza Type B (PCR) NEGATIVE (Negative) RSV RNA Qual (PCR) NEGATIVE (Negative) SARS-CoV-2 RNA (RT-PCR) NEGATIVE (Negative) 10/04/24 Range/Units 20:43 WBC (4.8-10.8) X10*3/uL RBC (4.20-5.50) X10*6/uL Hgb (12.0-16.0) g/dl Hct (37.0-47.0) % MCV (80.0-98.0) fL MCH (27.0-33.0) pg MCHC (31.0-35.0) g/dl RDW (11.0-16.0) % Plt Count (160-400) X10*3/uL MPV (9.4-12.3) fL Immature Gran % (Auto) Neut % (Auto) Lymph % (Auto) [place] % (Auto) Eos % (Auto) Baso % (Auto) Lymph # (Auto) [place] # (Auto) Eos # (Auto) Baso # (Auto) Abs Immat Gran (auto) Absolute Neuts (auto) Absolute Nucleated RBC (0.0-0.012) X10*3/uL Nucleated RBC % (auto) (0.0-0.2) /100WBC Neutrophils % (Manual) (45-73) % Band Neutrophils % (3-5) % Lymphocytes % (Manual) (20-40) % Monocytes % (Manual) (2-11) % Eosinophils % (Manual) (0-4) % Basophils % (Manual) (0-2) % Abs Neuts (Manual) (2.0-8.3) X10*3/uL Lymphocytes # (Manual) (1.2-4.9) X10*3/uL Monocytes # (Manual) (0.1-1.2) X10*3/uL Eosinophils # (Manual) (0.0-0.4) X10*3/uL Basophils # (Manual) (0.0-0.2) X10*3/uL Platelet Estimate (NORMAL) Plt Morphology Comment RBC Morphology Acanthocytes (Spur) /OIF Schistocytes /OIF Sodium (135-145) mmol/L Potassium (3.3-5.1) mmol/L Chloride (96-108) mmol/L Carbon Dioxide (22-29) mmol/L Anion Gap (12-20) BUN (9-16) mg/dL Creatinine (0.5-1.4) mg/dL Estim Creat Clear Calc Estimated GFR Random Glucose (60-115) mg/dL Lactic Acid (0.5-2.0) mmol/L Lactic Acid F/U @ 2Hr 1.8 (0.5-2.0) mmol/L Calcium (8.4-10.2) mg/dL Magnesium (1.6-2.6) mg/dL C-Reactive Protein (< or = 0.50) mg/dL Influenza Type A (PCR) (Negative) Influenza Type B (PCR) (Negative) RSV RNA Qual (PCR) (Negative) SARS-CoV-2 RNA (RT-PCR) (Negative) Independent Interpretation I performed an independent interpretation of an: EKG (See course narrative) and Plain X-Ray (See narrative above) Radiology Impression Discussion of test interpretation with radiology: I have reviewed the radiologist's reading. Radiologist Impression: XR/XR chest 2V IMPRESSION: No acute cardiopulmonary findings. External Record Review External record reviewed: Outpatient record Prescription Management I considered prescription management with: Pain Medication ( acetaminophen/ibuprofen) and Antibiotic Chronic Conditions Patient?s care impacted by: Other (See narrative above) Critical Care Time Critical Care Time Critical Care Time: Yes Total Critical Care Time: 35 Attestation: I personally attest to this critical care time spent taking care of the patient exclusive of all other billable procedures was approximately 35 minutes including initial evaluation of patient, ordering tests, x-ray interpretation, sepsis alert, medical consultation, documentation, re-evaluation. Discharge Plan Discharge Clinical Impression: Asthma exacerbation Patient Disposition: Home, Self-Care Instructions: Asthma (ED) Additional Instructions: You seemed to have had a very bad asthma exacerbation. Your testing in the emergency room today does not show any other significant problem however such as pneumonia. An antibiotic has been sent to your pharmacy. This antibiotic called azithromycin. The prescription that was sent to your pharmacy is actually more than you require. 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 Since you already received 2 of these tablets here in the emergency room today you will only need for of the tablets from the prescription. Please take this tablet once a day for the next 4 days. You can discard the extra 2 tablets. Take the prescribed prednisone once a day as prescribed. Use your albuterol machine every 4-6 hours as needed for shortness of breath or coughing. Please follow up with your regular doctor and/or your health aid next week. Return to the emergency room if you feel significantly worse. Prescriptions: New albuterol sulfate 0.63 mg/3 mL solution for nebulization 0.63 mg inhalation QID PRN (Reason: shortness of breath or wheezing) Qty: 90 0RF prednisone 20 mg tablet 40 mg PO DAILY Qty: 8 0RF azithromycin 250 mg tablet See Rx Instructions .ROUTE .COMPLEX Qty: 6 0RF Rx Instructions: For 250 mg dose pack: take 500 mg today (day 1), then 250 mg for 4 days (days 2-5) No Action clonidine HCl 0.1 mg tablet 0.1 mg PO TID trazodone 50 mg tablet 50 mg PO BEDTIME PRN (Reason: Sleep) ibuprofen 800 mg tablet 800 mg PO TID clonazepam 1 mg tablet 1 mg PO TID PRN (Reason: Anxiety) lithium carbonate 150 mg capsule 150 mg PO BEDTIME simvastatin 40 mg tablet 40 mg PO BEDTIME lithium carbonate 300 mg capsule 300 mg PO BID esomeprazole magnesium 40 mg capsule,delayed release(DR/EC) 40 mg PO DAILY@0630 gabapentin 300 mg capsule 300 mg PO BID dextroamphetamine-amphetamine 30 mg capsule,extended release 24hr 1 cap PO DAILY lamotrigine 100 mg tablet 100 mg PO DAILY escitalopram oxalate 20 mg tablet 20 mg PO DAILY cyclobenzaprine 5 mg tablet 5 mg PO BEDTIME cholecalciferol (vitamin D3) 25 mcg (1,000 unit) tablet 25 mcg PO DAILY mirabegron [Myrbetriq] 50 mg tablet extended release 24 hr 50 mg PO DAILY Vraylar 6 mg capsule 6 mg PO DAILY lamotrigine 150 mg tablet 150 mg PO BEDTIME docusate sodium 100 mg Capsule 100 mg PO BID PRN (Reason: Constipation) folic acid 1 mg tablet 2 mg PO DAILY albuterol sulfate 90 mcg/actuation HFA aerosol inhaler 2 puff inhalation Q4H PRN (Reason: Shortness Of Breath Or Wheezing) loratadine 10 mg tablet 10 mg PO DAILY tolterodine 4 mg Capsule,Extended Release 24hr 4 mg PO DAILY Qty: 30 0RF mirtazapine 15 mg Tablet 15 mg PO BEDTIME Qty: 30 0RF Referrals: Ana Ricks MD [Physician] - (Asthma) Rhoda Pina MD [Primary Care Provider] - Print Language: Montserratian
[2024-10-04] MEDS: Albuterol Sulfate 5 MG, Albuterol/Iprat 2.5/0.5MG 3 ML 3 ML INHALE (16:17)
[2024-10-04 16:44] LABS: Influenza A PCR NEGATIVE (Negative); Influenza B PCR NEGATIVE (Negative); Resp Syncy Virus RNA Qual PCR NEGATIVE (Negative); SARS COV2 PCR INHOUSE NEGATIVE (Negative)
[2024-10-04] MEDS: predniSONE 20 MG TABLET 60 MG PO (16:46)
[2024-10-04] MEDS: Magnesium Sulfate/H2O 2 GM/50 ML PIGGYBACK IV (18:00)
[2024-10-04 18:03] LABS: Hematocrit 37.4 % (37.0-47.0); Hemoglobin 13.2 g/dl (12.0-16.0); Mean Corpuscular HGB Conc 35.3 g/dl (31.0-35.0); Mean Corpuscular Hemoglobin 32.3 pg (27.0-33.0); Mean Corpuscular Volume 91.4 fL (80.0-98.0); Mean Platelet Volume 9.8 fL (9.4-12.3); Platelet Count 557 X10*3/uL (160-400); Red Blood Count 4.09 X10*6/uL (4.20-5.50); Red Cell Distribution Width 13.5 % (11.0-16.0); WBC ABN SCTR FOR CBC 1
[2024-10-04 18:04] LABS: White Blood Count 19.5 X10*3/uL (4.8-10.8)
[2024-10-04 18:14] LABS: Anion Gap 15 (12-20); Blood Urea Nitrogen 7 mg/dL (9-16); Calcium 9.3 mg/dL (8.4-10.2); Carbon Dioxide 20 mmol/L (22-29); Chloride 107 mmol/L (96-108); Creatinine Clr Calc Pharmacy 97.6; Estimated Glomerular Filt Rate > 60; Glucose Random 126 mg/dL (60-115); Potassium 3.8 mmol/L (3.3-5.1); Sodium 138 mmol/L (135-145)
[2024-10-04 18:34] LABS: Basophils Abs Manual 0.4 X10*3/uL (0.0-0.2); Basophils Percent Manual 2 % (0-2); Eosinophils Absolute Manual 0.6 X10*3/uL (0.0-0.4); Eosinophils Percent Manual 3 % (0-4); Lymphocytes Absolute Manual 4.1 X10*3/uL (1.2-4.9); Lymphocytes Percent Manual 21 % (20-40); Monocytes Absolute Manual 0.6 X10*3/uL (0.1-1.2); Monocytes Percent Manual 3 % (2-11); Neutrophils Percent Manual 71 % (45-73)
[2024-10-04] MEDS: cefTRIAXone sodium 1 GM VIAL IVPUSH (18:34)
[2024-10-04 18:35] LABS: Band Neutrophils Percent 0 % (3-5); Neutrophils Absolute Manual 13.8 X10*3/uL (2.0-8.3)
[2024-10-04 18:38] LABS: Acanthocytes 3+ (>5) /OIF; RBC Morphology NOTED; Schistocytes 1+ (0-2) /OIF
[2024-10-04] MEDS: 0.9 % Sodium Chloride 1,000 ML 999 ML IV (18:38)
[2024-10-04 18:40] LABS: Platelet Morphology Comment NORMAL
[2024-10-04 18:41] LABS: Platelet Estimate SLIGHTLY INCREASED (NORMAL)
--- NOTE | 2024-10-04 18:46 | ECG_ITS ---
Test Reason : CHEST PAIN Blood Pressure : / mmHG Vent. Rate : 079 BPM Atrial Rate : 079 BPM P-R Int : 144 ms QRS Dur : 086 ms QT Int : 366 ms P-R-T Axes : 053 023 052 degrees QTc Int : 419 ms Normal sinus rhythm Nonspecific T wave abnormality Abnormal ECG When compared with ECG of 07-SEP-2024 10:28, Nonspecific T wave abnormality, worse in Anterolateral leads Referred By: Nicole Olivia Electronically Signed By:SARAH GARCIA
[2024-10-04] MEDS: iohexoL 350 MG/ML 100 ML INFUS..BTL 85 ML IV (19:18)
[2024-10-04 19:23] LABS: Lactic Acid 2.1 mmol/L (0.5-2.0)
[2024-10-04 20:34] LABS: Reflex Lactate? Lactic Acid Added
[2024-10-04 21:08] LABS: ~Lactic Acid-LAB USE ONLY 1.8 mmol/L (0.5-2.0)
[2024-10-04] MEDS: Albuterol Sulfate 2.5 MG, Albuterol/Iprat 2.5/0.5MG 3 ML 3 ML INHALE (21:33)
[2024-10-04 21:58] LABS: C Reactive Protein 1.65 mg/dL (< or = 0.50)
--- NOTE | 2024-10-04 22:27 | PC.NURSE ---
@1709 ambulation trial pt O2 sats decreased to 88% on RA.
[2024-10-04] MEDS: Acetaminophen 325 MG TABLET 975 MG PO (22:41)
[2024-10-04] MEDS: Azithromycin 500 MG TABLET PO (23:08)
--- NOTE | 2024-10-04 23:21 | PC.NURSE ---
Second ambulation trial patient maintained @ 91% RA
== END 2024-10-04 23:26 | disposition home or self-care (01) ==
PROVIDERS: Nurse Practitioner Family; Registered Nurse Emergency; Emergency Provider Emergency Medicine; PCP Student in an Organized Health Care Education/Training Program
DX: J45.901 Unspecified asthma with (acute) exacerbation (principal); Z03.818 Encounter for observation for suspected exposure to other biological agents ruled out; R07.9 Chest pain, unspecified; R06.02 Shortness of breath; Z79.899 Other long term (current) drug therapy
CPT/HCPCS: 0241U; 36415; 71046; 71260; 80048; 83605; 83735; 85007; 85027; 86140; 87040; 93005; 94640; 96361; 96365; 96375; 99285; J0696; J3475; Q9967

== ENCOUNTER → 2024-10-04 18:46 | Outpatient (BNV) | payer MEDICARE, MEDICAID, SELFPAY | PROVIDERS: Emergency Provider Emergency Medicine; PCP Student in an Organized Health Care Education/Training Program; Visit Provider Internal Medicine | DX: R07.9 Chest pain, unspecified (principal); R94.31 Abnormal electrocardiogram [ECG] [EKG] | CPT/HCPCS: 93010 ==

== ENCOUNTER 2024-10-10 13:15 | Outpatient (AMB) | payer MEDICARE, MEDICAID, SELFPAY ==
[2024-10-10 13:23] VITALS: BP 102/72; PULSE 112; O2SAT 94; BMI 33.5
--- NOTE | 2024-10-10 13:23 | A.OFFVIS_ITS ---
Vital Signs 10/10/24 13:23 Height 5 ft 4 in Weight 195 lb 1.745 oz BMI 33.5 BP 102/72 Blood Pressure Location Lt brachial Position Sitting Pulse 112 H Pulse Source Pulse Oximeter Pulse Oximetry (%) 94 Oxygen Delivery Method Room Air Intake Visit Reasons: Asthma Exacerbation Intake Note: pt is here for emergency room and still does not feel well at all, wheezing and coughing, leg weakness, Cigar Head Puncher Required: No Allergies No Known Allergies Allergy (Verified 10/10/24 13:35) Medication List - Last Reconciled 10/10/24 by Ana Ricks MD albuterol sulfate 90 mcg/actuation 2 puffs inhalation Q4H PRN albuterol sulfate 0.63 mg (3 mL) inhalation QID PRN budesonide 180 mcg/actuation (Pulmicort Flexhaler) 1 inh inhalation BID cariprazine (Vraylar) 6 mg PO DAILY cholecalciferol (vitamin D3) 25 mcg PO DAILY clonazepam 1 mg PO TID PRN clonidine HCl 0.1 mg PO TID cyclobenzaprine 5 mg PO BEDTIME dextroamphetamine-amphetamine 30 mg ER 1 cap PO DAILY docusate sodium 100 mg PO BID PRN escitalopram oxalate 20 mg PO DAILY esomeprazole magnesium 40 mg PO DAILY@0630 folic acid 2 mg PO DAILY gabapentin 300 mg PO BID ibuprofen 800 mg PO TID lamotrigine 100 mg PO DAILY lamotrigine 150 mg PO BEDTIME lithium carbonate 150 mg PO BEDTIME lithium carbonate 300 mg PO BID loratadine 10 mg PO DAILY loratadine (Claritin) 10 mg PO DAILY mirabegron ER (Myrbetriq) 50 mg PO DAILY mirtazapine 15 mg PO BEDTIME prednisone 40 mg (2 x 20 mg) PO DAILY simvastatin 40 mg PO BEDTIME tolterodine ER 4 mg PO DAILY trazodone 50 mg PO BEDTIME PRN Do you need a note to return to daycare/school/sports/work: No HPI HPI Asthma Exacerbation: Details: 39 YEARS OLD FEMALE A CASE OF BIPOLAR DISORDER. IN [facility] PROGRAM, CHRONIC BRONCHIAL ASTHMA. SHE WAS SEEN IN THE EMERGENCY ROOM ON 10/04 WITH AN ACUTE EXACERBATION OF BRONCHIAL ASTHMA. TREATED WITH ALBUTEROL UPDRAFT, OXYGEN SUPPLEMENTATION, IV SOLU-MEDROL, FOLLOWED BY PRESCRIPTION FOR PREDNISONE 40 MG A DAY. SHE WAS DISCHARGED HOME AFTER PARTIAL TREATMENT. THERE WAS NO EVIDENCE OF ANY FEVER CHILLS, OR MUCOPURULENT SECRETIONS. SHE DID GET PRESCRIPTION FOR Z-RICH WHICH SHE HAS COMPLETED. AT HOME SHE DID NOT TAKE PREDNISONE SHE SAY IS THAT SHE JUST CAN NOT SWALLOW THE TABLETS. CONTINUES TO HAVE MILD TO MODERATE DEGREE OF COUGH WITH SOME WHEEZING. [facility] Medical History Borderline personality disorder Bipolar 2 disorder MDD (major depressive disorder), recurrent severe, without psychosis Pre-op evaluation Seasonal allergies Urinary frequency Incontinence HLD (hyperlipidemia) Clonidine overdose Polysubstance overdose Asthma Bronchitis Smoker Posttraumatic stress disorder Borderline personality disorder Bipolar disorder, unspecified B12 deficiency Anemia Migraines Cervical cancer COPD (chronic obstructive pulmonary disease) Depression Anxiety Surgical History History of esophagogastroduodenoscopy (EGD) History of bilateral tubal ligation History of total splenectomy Family History Father No problems noted. Mother No problems noted. Social History Household Members: Children and Friend(s) Housing: Apartment Do you presently have visiting nurse or other home services: [facility] ([facility] [employer]) Unable to assess alcohol history related to: Unknown Alcohol intake: never Comment: 1:1 sitter Patient Tobacco Use Status: Former Tobacco user Tobacco use type: Cigarette Cigarette Packs Per Day: 1.5 Cigarettes Per Day: 30.0 Years Smoked: 15 Quit February 2023 e-Cigarette/Vaping Use: Never Used Second Hand Smoke Exposure: No Substance Use Type: Marijuana and Caffiene service: No Current occupational status: disabled 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 Sexual orientation: Straight/Heterosexual Review of Systems Const All systems reviewed & are unremarkable except as noted in HPI and below Reports headache(s) (MIGRAINS ) ENT Reports headache(s) (MIGRAINS ) and Reports nasal congestion (MILD , INTERMITTENT .) Resp Reports cough (FREQUENT , DRY . ) Neuro Reports headache(s) (MIGRAINS ) Psych Reports anxiety and Reports depression Physical Exam Vital Signs: Last Vital Signs Pulse 112 H 10/10/24 13:23 BP 102/72 10/10/24 13:23 Pulse Ox 94 10/10/24 13:23 Oxygen Delivery Method Room Air 10/10/24 13:23 BMI result Body Mass Index 33.5 Const General: healthy appearing (OVERWEIGHT ,), comfortable, no acute distress, alert and awake Orientation/consciousness: patient oriented x3 HEENT Head: Yes normal to inspection General nose exam: No nasal polyps present and No nasal discharge present Face and sinus: Yes sinuses nontender Mouth: oropharynx abnormals (MILD ERYTHEMA OF THE PHARYNGEAL MUCOSA, NO EXUDATES ) Throat: Yes posterior oropharynx normal Eyes General: appearance normal, both eyes and all related structures Neck Neck: Yes normal visual inspection, Yes no lymphadenopathy, Yes trachea midline and Yes no JVD Thyroid: Thyroid normal Chest Chest palpation & inspection: normal inspection of the chest, normal palpation of entire chest wall and no tenderness Resp Other: PERCUSSION NOTE NOT PERCEPTIBLE BECAUSE OF THICK CHEST WALL. BREATH SOUNDS ARE DIMINISHED WITH PROLONGED EXPIRATORY PHASE. SCATTERED INSPIRATORY WHEEZES HEARD OVER THE LOWER PARTS OF THE CHEST. Effort & Inspection: normal respiratory effort and able to speak in complete sentences Cardio Palpation: normal PMI Rate: regular rate Rhythm: regular rhythm Heart sounds: no gallops and no murmurs Peripheral pulses: Peripheral pulses 2+ throughout GI Palpation (GI): Soft to palpation, nontender, No hepatosplenomegaly present and no masses Auscultation: normal bowel sounds Back/Spine/Pelvis Thoracic/Lumbar Spine: thoracic and lumbar spine normal to inspection Skin General skin exam: no rashes or lesions noted Neuro General: patient oriented x3 and no focal motor deficits Cranial nerves: Yes CN's II-XII intact bilaterally Extrem General: Yes normal to inspection, Yes no clubbing, cyanosis or edema, Yes no calf tenderness and No venous stasis dermatitis Psych Appearance: grossly normal and well kempt Speech and movement: Normal speech and movement present Office Meds methylprednisolone sod suc(PF) 125 mg/2 mL solution for injection Performing Provider: Ana Ricks MD Performing Location: [facility] [place] Pulmonology Services Administered by: Ebony Renteria LPN on 10/10/24 13:57 Dose Route Admin Location Dispensed Lot Number Expiration Date [place] [employer] Manager 125 mg IM L deltoid 2 ea [id number] 07/07/26 8758-3164-32 [employer] Comments: total dose given 125mg/2ml given in L deltoid per patient request Results Reviewed Results Reviewed: THE COURSE OF HER TREATMENT IN THE EMERGENCY ROOM WAS REVIEWED. SHE DID HAVE LOW O2 SAT ON ADMISSION AND AFTER TREATMENT FOR A FEW HOURS HER O2 SAT REMAINED ABOVE 90%. CHEST X-RAY AND CT SCAN OF THE CHEST DID NOT SHOW ANY INFILTRATES. MICRO PULMONARY NODULES 4 MM , 3 MM WERE SEEN. Assessment & Plan Assessment & Plan (1) Asthma: Comment: SHE HAS HISTORY OF CHRONIC BRONCHIAL ASTHMA. PULMONARY FUNCTION TEST ON 07/18/2023 SHOWED MILD OBSTRUCTIVE AIRWAY DISORDER WHICH IS COMPLETELY REVERSED AFTER BRONCHODILATOR THERAPY. THE RESULTS ARE CONSISTENT WITH BRONCHIAL ASTHMA. SHE HAD RECENT ACUTE EXACERBATION FOR WHICH SHE WAS TREATED IN THE EMERGENCY R OOM. STILL CONTINUES TO HAVE BILATERAL WHEEZES, INDICATING SUBOPTIMAL RESOLUTION. IT IS PARTLY BECAUSE SHE DID NOT TRACH PREDNISONE. Code(s): J45.909 - Unspecified asthma, uncomplicated Category: Medical Plan: INJECTION OF SOLU-MEDROL 125 MG SUBQ PROVIDED IN THE OFFICE. PREDNISONE LIQUID CONCENTRATE 10 MG BID X 5 DAYS CONTINUE PULMICORT FLEXHALER 180 MG B.I.D. ALBUTEROL 2 PUFFS Q 4-6 HOURS P.R.N./ALTERNATELY ALBUTEROL SOLUTION 0.63 MILLIGRAM/ML TO MALE IN THE NEBULIZER Q 6 HOURS P.R.N. (2) Bronchitis: Comment: RECENT VISIT TO EMERGENCY ROOM, WITH SYMPTOMS OF COUGH AND INCREASED SHORTNESS OF BREATH. CHEST X-RAY SUGGESTIVE OF INFILTRATE IN RIGHT LOWER LOBE, CLINICALLY DID NOT HAVE PNEUMONIA. SHE WAS TREATED FOR POSSIBLE ACUTE BRONCHITIS WITH A SHORT COURSE OF PREDNISONE AND ZITHROMAX. PT STILL HAS SOME RESIDUAL BRONCHITIS. Code(s): J40 - Bronchitis, not specified as acute or chronic Category: Medical Plan: TREATMENT UNDER ASTHMA EXACERBATION . I WILL RECHECK HER IN ABOUT 4 DAYS. (3) Smoker: Comment: PATIENT HAS BEEN A HEAVY SMOKER, UP TO 2 PACKS A DAY. LUCKILY SHE QUIT SMOKING IN FEBRUARY 2023 AND SO FOR IS RESISTING GOING BACK TO SMOKING. SHE IS COMMENDED FOR QUITTING AND ENCOURAGED TO STAY FREE OF SMOKING . Code(s): F17.200 - Nicotine dependence, unspecified, uncomplicated Category: Social Hx Plan: COMMENDED FOR NOT SMOKING Orders: Orders AMB Methylprednisolone Sod Succ Injection Today J45.909 - Unspecified asthma, uncomplicated Medications: New prednisone 10 mg (2 mL) PO BID 5 days 20 mL 1RF Asthma Excerbation Refilled albuterol sulfate 0.63 mg (3 mL) inhalation QID PRN 90 mL 3RF shortness of breath or wheezing Coding Level of Care Code Est Pt Level 3 (98847) Diagnoses Asthma J45.909 Bronchitis J40 Smoker F17.200
== END 2024-10-10 13:54 | disposition home or self-care (01) ==
PROVIDERS: PCP Student in an Organized Health Care Education/Training Program; Visit Provider Internal Medicine
DX: J45.909 Unspecified asthma, uncomplicated (principal); Z87.891 Personal history of nicotine dependence
CPT/HCPCS: 99213

== ENCOUNTER → 2024-10-10 13:15 | Outpatient (BNVA) | payer MEDICARE, MEDICAID, SELFPAY | PROVIDERS: PCP Student in an Organized Health Care Education/Training Program; Visit Provider Internal Medicine | DX: J45.901 Unspecified asthma with (acute) exacerbation (principal); F17.210 Nicotine dependence, cigarettes, uncomplicated | CPT/HCPCS: 96372; 99212 ==

== ENCOUNTER 2024-10-15 13:13 | Outpatient (AMB) | payer MEDICARE, MEDICAID, SELFPAY ==
[2024-10-15 13:19] VITALS: BP 104/80; PULSE 105; O2SAT 97; BMI 33.3
--- NOTE | 2024-10-15 13:19 | MHC.OFFVIS ---
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 Barrier Attendant Required: No Allergies No Known Allergies Allergy (Verified 10/15/24 14:06) Medication List - Last Reconciled 10/15/24 by Ana Ricks MD albuterol sulfate 90 mcg/actuation 2 puffs inhalation Q4H PRN albuterol sulfate 0.63 mg (3 mL) inhalation QID PRN budesonide 180 mcg/actuation (Pulmicort Flexhaler) 1 inh inhalation BID cariprazine (Vraylar) 6 mg PO DAILY cholecalciferol (vitamin D3) 25 mcg PO DAILY clonazepam 1 mg PO TID PRN clonidine HCl 0.1 mg PO TID cyclobenzaprine 5 mg PO BEDTIME dextroamphetamine-amphetamine 30 mg ER 1 cap PO DAILY docusate sodium 100 mg PO BID PRN escitalopram oxalate 20 mg PO DAILY esomeprazole magnesium 40 mg PO DAILY@0630 folic acid 2 mg PO DAILY gabapentin 300 mg PO BID ibuprofen 800 mg PO TID lamotrigine 100 mg PO DAILY lamotrigine 150 mg PO BEDTIME lithium carbonate 150 mg PO BEDTIME lithium carbonate 300 mg PO BID loratadine 10 mg PO DAILY loratadine (Claritin) 10 mg PO DAILY mirabegron ER (Myrbetriq) 50 mg PO DAILY mirtazapine 15 mg PO BEDTIME prednisone 40 mg (2 x 20 mg) PO DAILY prednisone 10 mg (2 mL) PO BID 5 days simvastatin 40 mg PO BEDTIME tolterodine ER 4 mg PO DAILY trazodone 50 mg PO BEDTIME PRN Do you need a note to return to daycare/school/sports/work: No HPI HPI Asthma Exacerbation: Details: This 39 years old female with severe bronchial asthma, also case of bipolar disorder. Was seen on 10/10, treated with an injection of Solu-Medrol 125 mg subQ, Prednisone was prescribed in liquid form but not approved by the insurance. She can not swallow tablets. She is here for. A short-term follow-up Feels somewhat better but not completely. Still has mild intermittent cough and wheezing. [facility] Medical History Borderline personality disorder Bipolar 2 disorder MDD (major depressive disorder), recurrent severe, without psychosis Pre-op evaluation Seasonal allergies Urinary frequency Incontinence HLD (hyperlipidemia) Clonidine overdose Polysubstance overdose Asthma Bronchitis Smoker Posttraumatic stress disorder Borderline personality disorder Bipolar disorder, unspecified B12 deficiency Anemia Migraines Cervical cancer COPD (chronic obstructive pulmonary disease) Depression Anxiety Surgical History History of esophagogastroduodenoscopy (EGD) History of bilateral tubal ligation History of total splenectomy Family History Father No problems noted. Mother No problems noted. Social History Household Members: Children and Friend(s) Housing: Apartment Do you presently have visiting nurse or other home services: Yes ([facility] education and outreach coordinator) Unable to assess alcohol history related to: Unknown Alcohol intake: never Comment: 1:1 sitter Patient Tobacco Use Status: Former Tobacco user Tobacco use type: Cigarette Cigarette Packs Per Day: 1.5 Cigarettes Per Day: 30.0 Years Smoked: 15 Quit February 2023 e-Cigarette/Vaping Use: Never Used Second Hand Smoke Exposure: No Substance Use Type: Marijuana and Caffiene service: No Current occupational status: disabled 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 Sexual orientation: Straight/Heterosexual Review of Systems Const All systems reviewed & are unremarkable except as noted in HPI and below Reports headache(s) (MIGRAINS ) ENT Reports headache(s) (MIGRAINS ) and Reports nasal congestion (MILD , INTERMITTENT .) Resp Reports cough (FREQUENT , DRY . ) Neuro Reports headache(s) (MIGRAINS ) Psych Reports anxiety and Reports depression Physical Exam Vital Signs: Last Vital Signs Pulse 105 H 10/15/24 13:19 BP 104/80 10/15/24 13:19 Pulse Ox 97 10/15/24 13:19 Oxygen Delivery Method Room Air 10/15/24 13:19 BMI result Body Mass Index 33.3 Const General: healthy appearing (OVERWEIGHT ,), comfortable, no acute distress, alert and awake Orientation/consciousness: patient oriented x3 HEENT Head: Yes normal to inspection General nose exam: No nasal polyps present and No nasal discharge present Face and sinus: Yes sinuses nontender Mouth: oropharynx abnormals (MILD ERYTHEMA OF THE PHARYNGEAL MUCOSA, NO EXUDATES ) Throat: Yes posterior oropharynx normal Eyes General: appearance normal, both eyes and all related structures Neck Neck: Yes normal visual inspection, Yes no lymphadenopathy, Yes trachea midline and Yes no JVD Thyroid: Thyroid normal Chest Chest palpation & inspection: normal inspection of the chest, normal palpation of entire chest wall and no tenderness Resp Other: PERCUSSION NOTE NOT PERCEPTIBLE BECAUSE OF THICK CHEST WALL. BREATH SOUNDS ARE DIMINISHED WITH PROLONGED EXPIRATORY PHASE. ONLY A FEW SCATTERED INSPIRATORY WHEEZES HEARD OVER THE LOWER PARTS OF THE CHEST. Effort & Inspection: normal respiratory effort and able to speak in complete sentences Cardio Palpation: normal PMI Rate: regular rate Rhythm: regular rhythm Heart sounds: no gallops and no murmurs Peripheral pulses: Peripheral pulses 2+ throughout GI Palpation (GI): Soft to palpation, nontender, No hepatosplenomegaly present and no masses Auscultation: normal bowel sounds Back/Spine/Pelvis Thoracic/Lumbar Spine: thoracic and lumbar spine normal to inspection Skin General skin exam: no rashes or lesions noted Neuro General: patient oriented x3 and no focal motor deficits Cranial nerves: Yes CN's II-XII intact bilaterally Extrem General: Yes normal to inspection, Yes no clubbing, cyanosis or edema, Yes no calf tenderness and No venous stasis dermatitis Psych Appearance: grossly normal and well kempt Speech and movement: Normal speech and movement present Office Meds methylprednisolone sod suc(PF) 125 mg/2 mL solution for injection Performing Provider: Ana Rciks MD Performing Location: [facility] [place] Pulmonology Services Administered by: Ebony Renteria LPN on 10/15/24 13:53 Dose Route Admin Location Dispensed Lot Number Expiration Date [facility] [employer] 125 mg IM L deltoid 2 ea [id number] 11/06/26 5180-6371-27 [employer] Comments: given in L deltoid per pt request. Total dose given 125mg/2ml. Assessment & Plan Assessment & Plan (1) Asthma: Comment: SHE HAS HISTORY OF CHRONIC BRONCHIAL ASTHMA. PULMONARY FUNCTION TEST ON 07/18/2023 SHOWED MILD OBSTRUCTIVE AIRWAY DISORDER WHICH IS COMPLETELY REVERSED AFTER BRONCHODILATOR THERAPY. THE RESULTS ARE CONSISTENT WITH BRONCHIAL ASTHMA. SHE HAD RECENT ACUTE EXACERBATION FOR WHICH SHE WAS TREATED IN THE EMERGENCY ROOM. AND THEN SHE WAS TREATED AT THE OFFICE ON 10/10/24 SEEN AND TREATED HERE AT THE , OFFICE GIVEN SOLU-MEDROL 125 MG SUBQ. LIQUID PREDNISONE WERE PRESCRIBED BUT NOT APPROVED BY INSURANCE. SHE HAS IMPROVED ALMOST TO 75% BUT STILL COMPLAINING OF, COUGH AND SOME WHEEZING. Code(s): J45.909 - Unspecified asthma, uncomplicated Category: Medical Plan: GIVEN SOLU-MEDROL 125 MG SUBQ TODAY. ADVISED TO CONTINUE HER REGULAR REGIMEN WHICH INCLUDES. SYMBICORT 180-4.52 PUFFS B.I.D. ALBUTEROL SOLUTION 0.63 MG PER 3 ML Q 6 HOURS P.R.N.. AND WHEN OUTDOORS ALBUTEROL HFA 2 PUFFS Q 6 HOURS P.R.N. NOW SHE WILL BE RECHECKED IN 4 WEEKS. (2) Smoker: Comment: PATIENT HAS BEEN A HEAVY SMOKER, UP TO 2 PACKS A DAY. LUCKILY SHE QUIT SMOKING IN FEBRUARY 2023 AND SO FOR IS RESISTING GOING BACK TO SMOKING. Code(s): F17.200 - Nicotine dependence, unspecified, uncomplicated Category: Social Hx Plan: SHE IS COMMENDED FOR QUITTING AND ENCOURAGED TO STAY FREE OF SMOKING . Orders: Orders AMB Methylprednisolone Sod Succ Injection Today J45.909 - Unspecified asthma, uncomplicated Coding Level of Care Code Est Pt Level 3 (97818) Diagnoses Asthma J45.909 Smoker F17.200
== END 2024-10-15 13:47 | disposition home or self-care (01) ==
PROVIDERS: PCP Student in an Organized Health Care Education/Training Program; Visit Provider Internal Medicine
DX: J45.909 Unspecified asthma, uncomplicated (principal); F17.200 Nicotine dependence, unspecified, uncomplicated
CPT/HCPCS: 99213

== ENCOUNTER → 2024-10-15 13:13 | Outpatient (BNVA) | payer MEDICARE, MEDICAID, SELFPAY | PROVIDERS: PCP Student in an Organized Health Care Education/Training Program; Visit Provider Internal Medicine | DX: J45.909 Unspecified asthma, uncomplicated (principal); F17.210 Nicotine dependence, cigarettes, uncomplicated | CPT/HCPCS: 96372; 99212; J2919 ==

== ENCOUNTER 2024-11-14 13:05 | Outpatient (AMB) | payer MEDICARE, MEDICAID, SELFPAY ==
[2024-11-14 13:11] VITALS: BP 102/72; PULSE 79; O2SAT 97; BMI 33.1
--- NOTE | 2024-11-14 13:11 | MHC.OFFVIS ---
Vital Signs 11/14/24 13:11 Height 5 ft 4 in Weight 192 lb 14.472 oz BMI 33.1 BP 102/72 Blood Pressure Location Lt brachial Position Sitting Pulse 79 Pulse Source Pulse Oximeter Pulse Oximetry (%) 97 Oxygen Delivery Method Room Air Intake Visit Reasons: Asthma Exacerbation Intake Note: pt is here for follow up and still little wheeze and little cough Dental Ceramist Assistant Required: No Allergies No Known Allergies Allergy (Verified 11/14/24 13:29) Medication List - Last Reconciled 11/14/24 by Ana Ricks MD albuterol sulfate 90 mcg/actuation 2 puffs inhalation Q4H PRN albuterol sulfate 0.63 mg (3 mL) inhalation QID PRN budesonide 180 mcg/actuation (Pulmicort Flexhaler) 1 inh inhalation BID cariprazine (Vraylar) 6 mg PO DAILY cholecalciferol (vitamin D3) 25 mcg PO DAILY clonazepam 1 mg PO TID PRN clonidine HCl 0.1 mg PO TID cyclobenzaprine 5 mg PO BEDTIME dextroamphetamine-amphetamine 30 mg ER 1 cap PO DAILY docusate sodium 100 mg PO BID PRN escitalopram oxalate 20 mg PO DAILY esomeprazole magnesium 40 mg PO DAILY@0630 folic acid 2 mg PO DAILY gabapentin 300 mg PO BID ibuprofen 800 mg PO TID lamotrigine 100 mg PO DAILY lamotrigine 150 mg PO BEDTIME lithium carbonate 150 mg PO BEDTIME lithium carbonate 300 mg PO BID loratadine 10 mg PO DAILY loratadine (Claritin) 10 mg PO DAILY mirabegron ER (Myrbetriq) 50 mg (2 x 25 mg) PO DAILY 90 days mirabegron ER (Myrbetriq) 50 mg PO DAILY mirtazapine 15 mg PO BEDTIME simvastatin 40 mg PO BEDTIME tolterodine ER 4 mg PO DAILY trazodone 50 mg PO BEDTIME PRN Do you need a note to return to daycare/school/sports/work: No HPI HPI Asthma Exacerbation: Details: This 39 years old female is back for short-term follow-up. At this time her asthma seems to be under good control, She does have mild intermittent cough, without much expectoration. She does have mild intermittent nasal congestion as usual. Denies any recent respiratory infection. She does use her medications regularly . [facility] Medical History Borderline personality disorder Bipolar 2 disorder MDD (major depressive disorder), recurrent severe, without psychosis Pre-op evaluation Seasonal allergies Urinary frequency Incontinence HLD (hyperlipidemia) Clonidine overdose Polysubstance overdose Asthma Bronchitis Smoker Posttraumatic stress disorder Borderline personality disorder Bipolar disorder, unspecified B12 deficiency Anemia Migraines Cervical cancer COPD (chronic obstructive pulmonary disease) Depression Anxiety Surgical History History of esophagogastroduodenoscopy (EGD) History of bilateral tubal ligation History of total splenectomy Family History Father No problems noted. Mother No problems noted. Social History Household Members: Children and Friend(s) Housing: Apartment Do you presently have visiting nurse or other home services: Yes ([facility] drug abuse social worker) Unable to assess alcohol history related to: Unknown Alcohol intake: never Comment: 1:1 sitter Patient Tobacco Use Status: Former Tobacco user Tobacco use type: Cigarette Cigarette Packs Per Day: 1.5 Cigarettes Per Day: 30.0 Years Smoked: 15 Quit February 2023 e-Cigarette/Vaping Use: Never Used Second Hand Smoke Exposure: No Substance Use Type: Marijuana and Caffiene service: No Current occupational status: disabled 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 Sexual orientation: Straight/Heterosexual Review of Systems Const All systems reviewed & are unremarkable except as noted in HPI and below Reports headache(s) (MIGRAINS ) ENT Reports headache(s) (MIGRAINS ) and Reports nasal congestion (MILD , INTERMITTENT .) Resp Reports cough (FREQUENT , DRY . ) Neuro Reports headache(s) (MIGRAINS ) Psych Reports anxiety and Reports depression Physical Exam Vital Signs: Last Vital Signs Pulse 79 11/14/24 13:11 BP 102/72 11/14/24 13:11 Pulse Ox 97 11/14/24 13:11 Oxygen Delivery Method Room Air 11/14/24 13:11 BMI result Body Mass Index 33.1 Const General: healthy appearing (OVERWEIGHT ,), comfortable, no acute distress, alert and awake Orientation/consciousness: patient oriented x3 HEENT Head: Yes normal to inspection General nose exam: No nasal polyps present and No nasal discharge present Face and sinus: Yes sinuses nontender Mouth: oropharynx abnormals (MILD ERYTHEMA OF THE PHARYNGEAL MUCOSA, NO EXUDATES ) Throat: Yes posterior oropharynx normal Eyes General: appearance normal, both eyes and all related structures Neck Neck: Yes normal visual inspection, Yes no lymphadenopathy, Yes trachea midline and Yes no JVD Thyroid: Thyroid normal Chest Chest palpation & inspection: normal inspection of the chest, normal palpation of entire chest wall and no tenderness Resp Other: PERCUSSION NOTE NOT PERCEPTIBLE BECAUSE OF THICK CHEST WALL. BREATH SOUNDS ARE DIMINISHED WITH PROLONGED EXPIRATORY PHASE. NO WHEEZES OR CREPITATIONS ARE HEARD TODAY. Effort & Inspection: normal respiratory effort and able to speak in complete sentences Cardio Palpation: normal PMI Rate: regular rate Rhythm: regular rhythm Heart sounds: no gallops and no murmurs Peripheral pulses: Peripheral pulses 2+ throughout GI Palpation (GI): Soft to palpation, nontender, No hepatosplenomegaly present and no masses Auscultation: normal bowel sounds Back/Spine/Pelvis Thoracic/Lumbar Spine: thoracic and lumbar spine normal to inspection Skin General skin exam: no rashes or lesions noted Neuro General: patient oriented x3 and no focal motor deficits Cranial nerves: Yes CN's II-XII intact bilaterally Extrem General: Yes normal to inspection, Yes no clubbing, cyanosis or edema, Yes no calf tenderness and No venous stasis dermatitis Psych Appearance: grossly normal and well kempt Speech and movement: Normal speech and movement present Assessment & Plan Assessment & Plan (1) Asthma: Comment: SHE HAS HISTORY OF CHRONIC BRONCHIAL ASTHMA. PULMONARY FUNCTION TEST ON 07/18/2023 SHOWED MILD OBSTRUCTIVE AIRWAY DISORDER WHICH IS COMPLETELY REVERSED AFTER BRONCHODILATOR THERAPY. THE RESULTS ARE CONSISTENT WITH BRONCHIAL ASTHMA. HER ACUTE EXACERBATION, IF SHE NEEDS STEROIDS, SHE HAS TO BE GIVEN BY IM , OR IN THE LIQUID FORM. TODAY SHE CLAIMS THAT SHE IS FEELING OKAY EXCEPT FOR INTERMITTENT COUGH, Code(s): J45.909 - Unspecified asthma, uncomplicated Category: Medical Plan: I REASSURED HER THAT HER ASTHMA SEEMS TO BE UNDER GOOD CONTROL, THERE IS NO EVIDENCE OF ANY ACUTE EXACERBATION. SHE SHOULD CONTINUE TO USE PULMICORT FLEXHALER 180 MCG 1 INHALATION B.I.D., ALBUTEROL SOLUTION 0.63 MG 3 MALE IN THE NEBULIZER Q I.D. P.R.N.. AND ALTERNATIVELY SHE CAN USE ALBUTEROL HFA 2 PUFFS Q 4-6 HOURS P.R.N. PATIENT NEEDS LOT OF REASSURANCE. (2) Smoker: Comment: PATIENT HAS BEEN A HEAVY SMOKER, UP TO 2 PACKS A DAY. LUCKILY SHE QUIT SMOKING IN FEBRUARY 2023 AND SO FOR IS RESISTING GOING BACK TO SMOKING. Code(s): F17.200 - Nicotine dependence, unspecified, uncomplicated Category: Social Hx Plan SHE HAS PAST HISTORY OF SMOKING 2 PACKS A DAY. LUCKILY QUIT IN 2022, AND HAS NOT RESUMED SMOKING AT LEAST UPTILL NOW. PATIENT IS COMMENDED FOR NOT SMOKING, WILL CONTINUE TO MONITOR CLOSELY. Coding Level of Care Code Est Pt Level 3 (09392) Diagnoses Asthma J45.909 Smoker F17.200
== END 2024-11-14 13:30 | disposition home or self-care (01) ==
PROVIDERS: PCP Student in an Organized Health Care Education/Training Program; Visit Provider Internal Medicine
DX: J45.909 Unspecified asthma, uncomplicated (principal); F17.200 Nicotine dependence, unspecified, uncomplicated
CPT/HCPCS: 99213

== ENCOUNTER → 2024-11-14 13:05 | Outpatient (BNVA) | payer MEDICARE, MEDICAID, SELFPAY | PROVIDERS: PCP Student in an Organized Health Care Education/Training Program; Visit Provider Internal Medicine | DX: J45.909 Unspecified asthma, uncomplicated (principal); F17.210 Nicotine dependence, cigarettes, uncomplicated | CPT/HCPCS: 99212 ==

== ENCOUNTER → 2024-12-13 13:14 | Outpatient (BNVA) | payer MEDICARE, MEDICAID, SELFPAY | PROVIDERS: PCP Student in an Organized Health Care Education/Training Program; Visit Provider Surgery ==

== ENCOUNTER 2024-12-16 15:10 | Inpatient (IN) | payer MEDICARE, MEDICAID, SELFPAY ==
[2024-12-16 15:20] VITALS: BP 153/68; PULSE 60; O2SAT 97
--- NOTE | 2024-12-16 15:24 | ED_ITS ---
HPI - Psych General Chief Complaint: Psychiatric Symptoms Stated Complaint: ETOH SI Time Seen by Provider: 12/16/24 15:17 Source: EMS Mode of arrival: EMS History of Present Illness HPI Narrative: This is 39 years old the patient with a history of PTSD, bilateral disorder, prior psych hospitalization was brought by the ambulance because complaining of SI. She was stopped by police because lethargic she told the police sohan took several pills of Flexeril /clonazepam/ clonidine and told the police that she was SI in an ambulance was called complaint: suicidal ideation and altered mental status Onset (ago): hour(s) (6) Duration: constant History of same: Yes Relieving factors: none Exacerbating factors: none Associated psychiatric symptoms: depression Related Data Home Medications ?Medication ?Instructions ?Recorded ?Confirmed albuterol sulfate 90 mcg/actuation 2 puff inhalation Q4H PRN 09/07/24 11/14/24 aerosol inhaler Shortness Of Breath Or Wheezing cariprazine 6 mg capsule (Vraylar) 6 mg PO DAILY 09/07/24 11/14/24 cholecalciferol (vitamin D3) 25 25 mcg PO DAILY 09/07/24 11/14/24 mcg (1,000 unit) tablet clonazepam 1 mg tablet 1 mg PO TID PRN Anxiety 09/07/24 12/16/24 clonidine HCl 0.1 mg tablet 0.1 mg PO TID 09/07/24 12/16/24 cyclobenzaprine 5 mg tablet 5 mg PO BEDTIME Muscle Spasm 09/07/24 11/14/24 dextroamphetamine-amphetamine ER 1 cap PO DAILY 09/07/24 11/14/24 30 mg 24hr capsule,extend release docusate sodium 100 mg capsule 100 mg PO BID PRN Constipation 09/07/24 11/14/24 escitalopram oxalate 20 mg tablet 20 mg PO DAILY 09/07/24 11/14/24 esomeprazole magnesium 40 mg 40 mg PO DAILY@0630 09/07/24 11/14/24 capsule,delayed release folic acid 1 mg tablet 2 mg PO DAILY 09/07/24 11/14/24 gabapentin 300 mg capsule 300 mg PO BID 09/07/24 12/16/24 ibuprofen 800 mg tablet 800 mg PO TID 09/07/24 11/14/24 lamotrigine 100 mg tablet 100 mg PO DAILY 09/07/24 11/14/24 lamotrigine 150 mg tablet 150 mg PO BEDTIME 09/07/24 11/14/24 lithium carbonate 150 mg capsule 150 mg PO BEDTIME 09/07/24 12/16/24 lithium carbonate 300 mg capsule 300 mg PO BID 09/07/24 12/16/24 loratadine 10 mg tablet 10 mg PO DAILY 09/07/24 11/14/24 simvastatin 40 mg tablet 40 mg PO BEDTIME 09/07/24 12/16/24 trazodone 50 mg tablet 50 mg PO BEDTIME PRN Sleep 09/07/24 11/14/24 budesonide 180 mcg/actuation 1 inh inhalation BID 10/10/24 11/14/24 breath activated powder inhaler (Pulmicort Flexhaler) loratadine 10 mg tablet (Claritin) 10 mg PO DAILY 10/10/24 11/14/24 Previous Rx's ?Medication ?Instructions ?Recorded mirtazapine 15 mg tablet 15 mg PO BEDTIME #30 tabs 09/14/24 albuterol sulfate 0.63 mg/3 mL 0.63 mg (3 mL) inhalation QID PRN 10/10/24 solution for nebulization shortness of breath or wheezing #90 mL tolterodine 4 mg capsule,extended 4 mg PO DAILY #30 caps 10/12/24 release 24 hr mirabegron 25 mg tablet,extended 50 mg (2 x 25 mg) PO DAILY 90 days 11/09/24 release 24 hr (Myrbetriq) #180 tabs mirabegron 50 mg tablet,extended 50 mg PO DAILY #90 tabs 11/09/24 release 24 hr (Myrbetriq) Allergies Allergy/AdvReac Type Severity Reaction Status Date / Time No Known Allergies Allergy Verified 12/16/24 16:08 Review of Systems 2 Constitutional: Constitutional: Denies fever(s) Cardiovascular: Cardiovascular: Reports no additional cardiovascular complaints Gastrointestinal: Gastrointestinal: Reports no additional gastrointestinal complaints [facility] Past Medical History Attestation statement: The following information was validated with the patient. [facility] Narrative: PTSD bipolar prior suicide attempt by overdose Medical History Borderline personality disorder Bipolar 2 disorder MDD (major depressive disorder), recurrent severe, without psychosis Pre-op evaluation Seasonal allergies Urinary frequency Incontinence HLD (hyperlipidemia) Clonidine overdose Polysubstance overdose Asthma Bronchitis Smoker Posttraumatic stress disorder Borderline personality disorder Bipolar disorder, unspecified B12 deficiency Anemia Migraines Cervical cancer COPD (chronic obstructive pulmonary disease) Depression Anxiety Surgical History History of esophagogastroduodenoscopy (EGD) History of bilateral tubal ligation History of total splenectomy Family History Family History Father No problems noted. Mother No problems noted. Social History Social History Household Members: Children and Friend(s) Housing: Apartment Do you presently have visiting nurse or other home services: Yes ([facility] medical office worker) Unable to assess alcohol history related to: Unknown Alcohol intake: never Comment: 1:1 sitter Patient Tobacco Use Status: Former Tobacco user Tobacco use type: Cigarette Cigarette Packs Per Day: 1.5 Cigarettes Per Day: 30.0 Years Smoked: 15 Quit February 2023 Smoked in Last 30 Days: No e-Cigarette/Vaping Use: Never Used Second Hand Smoke Exposure: No Use of substances other than those prescribed or required for medical reasons: Yes Substance Use Type: Prescription Drugs Advance Directives: No Advance Directives Information Provided: No Do you have a plan to hurt others: No Plan service: No Current occupational status: disabled 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 Sexual orientation: Straight/Heterosexual Physical Exam 2 Vital Signs: Vital Signs: Last Vital Signs Temp 98.2 F 12/16/24 20:57 Pulse 67 12/16/24 20:57 Resp 16 12/16/24 20:57 BP 94/53 L 12/16/24 20:57 Pulse Ox 97 12/16/24 20:57 O2 Del Method Room Air 12/16/24 20:57 BMI result Body Mass Index 32.8 Not acute distress Const: General: cooperative and well developed Nutritional Appearance: a verage body habitus HEENT: Head: Yes normal to inspection General nose exam: Normal external nose present Mouth: Normal oral and palatal mucosa present Neck: Neck: Yes normal visual inspection Chest: Chest palpation & inspection: normal inspection of the chest Resp: Effort & Inspection: normal respiratory effort Auscultation: clear to auscultation bilaterally Cardio: Jugular venous distension: no JVD Rate: regular rate Rhythm: r egular rhythm GI: Inspection: Yes normal to inspection Palpation (GI): Soft to palpation, not firm, nontender and no guarding Auscultation: normal bowel sounds Skin: General skin exam: no rashes or lesions noted and elasticity normal L esions: no lesions Rashes: no rashes Extrem: General: Yes normal to inspection, Yes full ROM and Yes capillary refill normal Course Reevaluation(s) Reevaluation #1: pt seen by crisis she is bed search ,signed out to Dr Javier I am off shift now Time: 21:04 Reevaluation #2: Leukocytosis noted above patient has a chronic elevated WBC Time: 21:06 Medications Administered Discontinued Medications Generic Name Dose Route Start Last Admin Trade Name Freq PRN Reason Stop Dose Admin Sodium Chloride 1,000 mls @ 999 mls/hr 12/16/24 15:30 12/16/24 20:21 Ns IVCONT 12/16/24 16:30 Infused .Q1H1M JOSE Infusion Medical Decision Making Medical Decision Making [facility] Narrative: Patient presented to the emergency department with complaining of SI and ingestion of multiple medicine including Flexeril clonazepam clonidine will check labs electrocardiogram acetaminophen and aspirin level we will consult psych Differential Diagnosis Differential Diagnoses: The differential diagnosis associated with the presentation includes SI/overdose Admission/Observation Consideration of admission/observation: Escalation of care including admission/observation considered Lab Data [facility] Lab Attestation statement: I reviewed the patient's lab results. 12/16/24 15:47 12/16/24 16:50 Labs: Lab Results 12/16/24 12/16/24 Range/Units 15:47 16:50 WBC 15.5 H (4.8-10.8) X10*3/uL RBC 4.65 (4.20-5.50) X10*6/uL Hgb 14.3 (12.0-16.0) g/dl Hct 43.0 (37.0-47.0) % MCV 92.5 (80.0-98.0) fL MCH 30.8 (27.0-33.0) pg MCHC 33.3 (31.0-35.0) g/dl RDW 14.1 (11.0-16.0) % Plt Count 526 H (160-400) X10*3/uL MPV 9.9 (9.4-12.3) fL Immature Gran % (Auto) Cancelled Neut % (Auto) Cancelled Lymph % (Auto) Cancelled [place] % (Auto) Cancelled Eos % (Auto) Cancelled Baso % (Auto) Cancelled Lymph # (Auto) Cancelled [place] # (Auto) Cancelled Eos # (Auto) Cancelled Baso # (Auto) Cancelled Abs Immat Gran (auto) Cancelled Absolute Neuts (auto) Cancelled Absolute Nucleated RBC 0.000 (0.0-0.012) X10*3/uL Nucleated RBC % (auto) 0.0 (0.0-0.2) /100WBC Neutrophils % (Manual) 53 (45-73) % Band Neutrophils % 0 L (3-5) % Lymphocytes % (Manual) 28 (20-40) % Atypical Lymphs % (Man) 10 H (0-6) % Monocytes % (Manual) 5 (2-11) % Eosinophils % (Manual) 3 (0-4) % Basophils % (Manual) 1 (0-2) % Abs Neuts (Manual) 8.2 (2.0-8.3) X10*3/uL Lymphocytes # (Manual) 4.3 (1.2-4.9) X10*3/uL Atyp Lymphs # (Manual) 1.6 x10*3/uL Monocytes # (Manual) 0.8 (0.1-1.2) X10*3/uL Eosinophils # (Manual) 0.5 H (0.0-0.4) X10*3/uL Basophils # (Manual) 0.2 (0.0-0.2) X10*3/uL Toxic Vacuolation PRESENT Platelet Estimate SLIGHTLY INCREASED (NORMAL) Plt Morphology Comment NORMAL RBC Morphology NOTED [place] Cells 2+ (3-5) /OIF Acanthocytes (Spur) 2+ (3-5) /OIF Sodium 137 (135-145) mmol/L Potassium 4.3 (3.3-5.1) mmol/L Chloride 109 H (96-108) mmol/L Carbon Dioxide 19 L (22-29) mmol/L Anion Gap 13 (12-20) BUN 9 (9-16) mg/dL Creatinine 0.80 (0.5-1.4) mg/dL Estim Creat Clear Calc 103.1 Estimated GFR > 60 Random Glucose 113 (60-115) mg/dL Calcium 9.8 (8.4-10.2) mg/dL Total Bilirubin 0.3 (0.0-1.0) mg/dL AST 38 H (5-31) U/L ALT 29 (0-31) U/L Alkaline Phosphatase 67 (39-117) U/L Total Protein 7.4 (6.5-8.0) g/dL Albumin 4.0 (3.5-5.0) g/dL Beta HCG, Quant < 2 mIU/mL Salicylates < 5.0 L (15-30) mg/dL Acetaminophen < 3 (<30) mcg/mL Ethyl Alcohol < 10 mg/dL Discharge Plan Discharge Clinical Impression: Suicidal ideation Patient Disposition: Still a Patient Prescriptions: No Action tolterodine 4 mg capsule,extended release 24hr 4 mg PO DAILY Qty: 30 3RF Myrbetriq 25 mg tablet extended release 24 hr 50 mg PO DAILY 90 Days Qty: 180 2RF mirabegron [Myrbetriq] 50 mg tablet extended release 24 hr 50 mg PO DAILY Qty: 90 1RF clonidine HCl 0.1 mg tablet 0.1 mg PO TID trazodone 50 mg tablet 50 mg PO BEDTIME PRN (Reason: Sleep) ibuprofen 800 mg tablet 800 mg PO TID clonazepam 1 mg tablet 1 mg PO TID PRN (Reason: Anxiety) lithium carbonate 150 mg capsule 150 mg PO BEDTIME simvastatin 40 mg tablet 40 mg PO BEDTIME lithium carbonate 300 mg capsule 300 mg PO BID esomeprazole magnesium 40 mg capsule,delayed release(DR/EC) 40 mg PO DAILY@0630 gabapentin 300 mg capsule 300 mg PO BID dextroamphetamine-amphetamine 30 mg capsule,extended release 24hr 1 cap PO DAILY lamotrigine 100 mg tablet 100 mg PO DAILY escitalopram oxalate 20 mg tablet 20 mg PO DAILY cyclobenzaprine 5 mg tablet 5 mg PO BEDTIME cholecalciferol (vitamin D3) 25 mcg (1,000 unit) tablet 25 mcg PO DAILY Vraylar 6 mg capsule 6 mg PO DAILY lamotrigine 150 mg tablet 150 mg PO BEDTIME docusate sodium 100 mg Capsule 100 mg PO BID PRN (Reason: Constipation) folic acid 1 mg tablet 2 mg PO DAILY albuterol sulfate 90 mcg/actuation HFA aerosol inhaler 2 puff inhalation Q4H PRN (Reason: Shortness Of Breath Or Wheezing) loratadine 10 mg tablet 10 mg PO DAILY mirtazapine 15 mg Tablet 15 mg PO BEDTIME Qty: 30 0RF Pulmicort Flexhaler 180 mcg/actuation aerosol powdr breath activated 1 inh inhalation BID loratadine [Claritin] 10 mg tablet 10 mg PO DAILY albuterol sulfate 0.63 mg/3 mL solution for nebulization 0.63 mg inhalation QID PRN (Reason: shortness of breath or wheezing) Qty: 90 3RF Interventions: [place]-Suicide Risk Severity Scale Last Done: 12/16/24 15:29 Print Language: Kazakh
[2024-12-16 15:29] VITALS: BP 114/76; PULSE 63; RESP 16; TEMP 36.4; O2SAT 95; BMI 32.8
--- NOTE | 2024-12-16 15:50 | PC.NURSE ---
Pt reports ?if left 6 year old son home alone, PD called for wellness check. Will call back with update. Also called son at home unk if son is home. 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
[2024-12-16 15:53] LABS: Hemoglobin 14.3 g/dl (12.0-16.0); Mean Corpuscular HGB Conc 33.3 g/dl (31.0-35.0); Mean Corpuscular Hemoglobin 30.8 pg (27.0-33.0); Mean Corpuscular Volume 92.5 fL (80.0-98.0); Mean Platelet Volume 9.9 fL (9.4-12.3); Platelet Count 526 X10*3/uL (160-400); Red Blood Count 4.65 X10*6/uL (4.20-5.50); Red Cell Distribution Width 14.1 % (11.0-16.0)
[2024-12-16 16:02] LABS: WBC ABN SCTR FOR CBC 1; White Blood Count 15.5 X10*3/uL (4.8-10.8)
--- NOTE | 2024-12-16 16:08 | PC.NURSE ---
[employer] called back and states officer made contact with grandmother and uncle and 6 year old is in good care.
[2024-12-16] MEDS: 0.9 % Sodium Chloride 1,000 ML 999 ML IVCONT (16:15)
[2024-12-16 16:23] LABS: HCG Quantitative < 2 mIU/mL
[2024-12-16 16:26] LABS: Atypical Lymph Absolute Manual 1.6 x10*3/uL; Atypical Lymphs Percent Manual 10 % (0-6); Basophils Abs Manual 0.2 X10*3/uL (0.0-0.2); Basophils Percent Manual 1 % (0-2); Eosinophils Absolute Manual 0.5 X10*3/uL (0.0-0.4); Eosinophils Percent Manual 3 % (0-4); Lymphocytes Absolute Manual 4.3 X10*3/uL (1.2-4.9); Lymphocytes Percent Manual 28 % (20-40); Monocytes Absolute Manual 0.8 X10*3/uL (0.1-1.2); Monocytes Percent Manual 5 % (2-11); Neutrophils Percent Manual 53 % (45-73)
[2024-12-16 16:27] LABS: Acanthocytes 2+ (3-5) /OIF; Burr Cells 2+ (3-5) /OIF; RBC Morphology NOTED
[2024-12-16 16:28] LABS: Band Neutrophils Percent 0 % (3-5); Neutrophils Absolute Manual 8.2 X10*3/uL (2.0-8.3); Platelet Estimate SLIGHTLY INCREASED (NORMAL); Platelet Morphology Comment NORMAL; Toxic Vacuolation PRESENT
[2024-12-16 17:19] LABS: Acetaminophen LAB < 3 mcg/mL (<30); Alanine Aminotransferase 29 U/L (0-31); Alkaline Phosphatase 67 U/L (39-117); Anion Gap 13 (12-20); Aspartate Amino Transferase 38 U/L (5-31); Bilirubin Total 0.3 mg/dL (0.0-1.0); Blood Urea Nitrogen 9 mg/dL (9-16); Calcium 9.8 mg/dL (8.4-10.2); Carbon Dioxide 19 mmol/L (22-29); Chloride 109 mmol/L (96-108); Creatinine Clr Calc Pharmacy 103.1; Estimated Glomerular Filt Rate > 60; Ethanol < 10 mg/dL; Glucose Random 113 mg/dL (60-115); Potassium 4.3 mmol/L (3.3-5.1); Salicylate < 5.0 mg/dL (15-30); Sodium 137 mmol/L (135-145); Total Protein 7.4 g/dL (6.5-8.0)
--- NOTE | 2024-12-16 18:50 | PC.NURSE ---
attempted to obtain urine sample. pt somnelent and unable to hold conversation or walk with steady gait to bathroom. will trial again when more alert.
[2024-12-16 20:57] VITALS: BP 94/53; PULSE 67; RESP 16; TEMP 36.8; O2SAT 97
--- NOTE | 2024-12-16 21:05 | ECG_ITS ---
Test Reason : od Blood Pressure : */* mmHG Vent. Rate : 55 BPM Atrial Rate : 55 BPM P-R Int : 170 ms QRS Dur : 88 ms QT Int : 422 ms P-R-T Axes : 49 28 38 degrees QTcB Int : 403 ms Sinus bradycardia Otherwise normal ECG When compared with ECG of 04-Oct-2024 18:39, Nonspecific T wave abnormality no longer evident in Anterolateral leads Referred By: Carlos Wang Electronically Signed By: CARLOS A PARSONS MD
--- NOTE | 2024-12-16 21:07 | PC.NURSE ---
This real estate underwriter assumed care of this Pt at 1900. Pt A&Ox3, denies any pain, denies SI/HI/AH/VH. 1:1 sitter at bedside. Pt able to verbalize night home meds at this time, med rec done.
--- NOTE | 2024-12-16 22:25 | MHC.EDTECH ---
pt belongings [facility]
--- NOTE | 2024-12-16 22:33 | PC.NURSE ---
Report given via telephone to POD RN. Pt ambulated independently with steady gait. Pt denied the need to use BR for urine sample. Belongings brought into POD.
--- NOTE | 2024-12-16 23:38 | PC.NURSE ---
patient appears to remain at rest in rear common area, respirations are even and unlabored patient appears in no distress.
[2024-12-17 06:52] LABS: Amphetamine Screen Urine Not Detected (Not Detect); Barbiturates, Urine Not Detected (Not Detect); Benzodiazepines Screen Urine POSITIVE (Not Detect); Buprenorphine Scr Not Detected (Not Detect); Cannabinoid Screen Urine POSITIVE (Not Detect); Cocaine Screen Urine Not Detected (Not Detect); Fentanyl, urine Not Detected (Not Detect); Methadone Screen, Urine Not Detected (Not Detect); Opiate Screen Urine Not Detected (Not Detect); Oxycodone Screen Urine Not Detected (Not Detect); Phencyclidine Screen Urine Not Detected (Not Detect)
[2024-12-17 08:03] VITALS: BP 121/60; PULSE 72; RESP 17; TEMP 36.4; O2SAT 95
[2024-12-17] MEDS: lamoTRIgine 100 MG TABLET PO (08:15)
[2024-12-17] MEDS: Gabapentin 300 MG CAPSULE PO ×2 (08:16→20:40)
[2024-12-17] MEDS: Ibuprofen 800 MG TABLET PO ×3 (08:16→20:40)
[2024-12-17] MEDS: Cariprazine HCl 3 MG CAPSULE 6 MG PO (08:16)
[2024-12-17 08:17] VITALS: BP 121/60
[2024-12-17] MEDS: cloNIDine HCL 0.1 MG TABLET PO ×3 (08:17→20:41)
[2024-12-17] MEDS: Escitalopram Oxalate 20 MG TABLET PO (08:17)
[2024-12-17] MEDS: Lithium Carbonate 300 MG CAPSULE PO ×2 (08:18→20:40)
[2024-12-17] MEDS: clonazePAM 1 MG TABLET PO ×2 (08:25→14:12)
[2024-12-17] MEDS: Loratadine 10 MG TABLET PO (08:26)
[2024-12-17] MEDS: Dextroamphetamine/Amphetamine XR 10 MG CAP.ER.24H 30 MG PO (08:26)
[2024-12-17 08:40] LABS: Appearance Urine Cloudy; Color Urine Yellow; Glucose Urine UA Negative (Negative); Leukocyte Esterase Urine Trace (Negative); Nitrite Urine Negative (Negative); PH 7.5 (5.0-9.0); Specific Gravity - Urine 1.015 (1.005-1.025); UMIC TRIGGER UACC YES; Urine Blood Negative (Negative); Urine Ketones Negative (Negative); Urine Protein Negative (Neg-Trace)
[2024-12-17 08:45] LABS: Bacteria Urine 1+ (None Seen); Hyaline Casts Urine 0-2 /LPF (0-2); RBC Urine 0-2 /HPF (0-2); UACC Culture Trigger YES
[2024-12-17] MEDS: Omeprazole 20 MG CAPSULE.DR PO (09:36)
[2024-12-17] MEDS: Mirabegron 50 MG TAB.ER.24H PO (09:36)
--- NOTE | 2024-12-17 11:48 | PC.NURSE ---
Pt resting on bed with respirations equal/unlabored. Pt calm/cooperative with care.
[2024-12-17 14:12] VITALS: BP 121/60
[2024-12-17 16:56] VITALS: BP 120/72; PULSE 78; RESP 16; TEMP 36.6; O2SAT 99
[2024-12-17 17:47] LABS: Alanine Aminotransferase 30 U/L (0-31); Albumin Level 4.1 g/dL (3.5-5.0); Alkaline Phosphatase 74 U/L (39-117); Anion Gap 12 (12-20); Aspartate Amino Transferase 35 U/L (5-31); Bilirubin Total 0.4 mg/dL (0.0-1.0); Blood Urea Nitrogen 8 mg/dL (9-16); Calcium 9.5 mg/dL (8.4-10.2); Carbon Dioxide 25 mmol/L (22-29); Chloride 106 mmol/L (96-108); Estimated Glomerular Filt Rate > 60; Glucose Random 108 mg/dL (60-115); Potassium 4.8 mmol/L (3.3-5.1); Sodium 138 mmol/L (135-145); Total Protein 7.4 g/dL (6.5-8.0)
--- NOTE | 2024-12-17 17:49 | PC.NURSE ---
pt declines NRT or flu shot
[2024-12-17 18:09] VITALS: BMI 30.3
--- NOTE | 2024-12-17 18:15 | PC.ADMIT ---
Tammy arrived on the unit at 1650 from the POD via wheelchair. She has an accepted CV and is on 15min checks. Skin and safety check revealed several small cracks in right heel and numerous small open wounds on top of head which are the result of anxiety and picking per patient report. Tammy's timeline of events leading to her admission are vague and difficult to follow. Crisis eval states pt was pulled over by police for swerving at which point the pt reported thoughts of SI. She also admitted to taking several flexeril, clonapin, and clonidine however denies it was a suicide attempt. Pt states she only said it was a suicide attempt to get out of being arrested since she didn't have a license. Pt has an lengthly Hx of [facility] admissions and receives supports from [facility], [facility], a therapist and psychiatrist. She reports anxiety and depression 04/16 and denies si/hi/avh. PMH includes asthma, bipolar disorder, borderline personality disorder, COPD, depression, incontinence, MDD, migraines & PTSD
[2024-12-17 20:00] VITALS: BP 114/55; PULSE 61; TEMP 2.4; TEMP 36.4; O2SAT 94
[2024-12-17] MEDS: Lithium Carbonate 300 MG TABLET 150 MG PO (20:39)
[2024-12-17] MEDS: lamoTRIgine 25 MG TABLET 150 MG PO (20:40)
[2024-12-17] MEDS: Mirtazapine 15 MG TABLET PO (20:41)
[2024-12-18] MEDS: Dextroamphetamine/Amphetamine XR 10 MG CAP.ER.24H 30 MG PO (06:02)
[2024-12-18 08:00] VITALS: BP 111/79; PULSE 64; RESP 16; TEMP 36.9; O2SAT 97
[2024-12-18] MEDS: Cariprazine HCl 3 MG CAPSULE 6 MG PO (08:19)
[2024-12-18] MEDS: Gabapentin 300 MG CAPSULE PO ×2 (08:19→20:10)
[2024-12-18 08:20] VITALS: BP 111/79
[2024-12-18] MEDS: cloNIDine HCL 0.1 MG TABLET PO ×3 (08:20→20:13)
[2024-12-18] MEDS: Omeprazole 20 MG CAPSULE.DR PO (08:20)
[2024-12-18] MEDS: Loratadine 10 MG TABLET PO (08:21)
[2024-12-18] MEDS: Ibuprofen 800 MG TABLET PO ×3 (08:21→20:10)
[2024-12-18] MEDS: Mirabegron 50 MG TAB.ER.24H PO (08:21)
[2024-12-18] MEDS: lamoTRIgine 100 MG TABLET PO (08:21)
[2024-12-18] MEDS: Lithium Carbonate 300 MG CAPSULE PO ×2 (08:21→20:13)
[2024-12-18] MEDS: Escitalopram Oxalate 20 MG TABLET PO (08:21)
[2024-12-18 09:12] LABS: Estimated Average Glucose 108 mg/dL; Hemoglobin A1C 130.8926 umol/L; Hemoglobin A1c % 5.4 % (<6.0)
[2024-12-18 09:28] LABS: Cholesterol 229 mg/dL (<200); HDL Cholesterol 39 mg/dL (>40); LDL Cholesterol Calculated 146 mg/dL (<100); Magnesium 2.2 mg/dL (1.6-2.6); Triglycerides 221 mg/dL (<150)
[2024-12-18 09:48] LABS: Free T4 (Free Thyroxine) 0.87 ng/dL (0.71-1.85); Thyroid Stimulating Hormone 1.39 uIU/mL (0.32-4.0)
[2024-12-18 10:00] LABS: Folate 4.9 ng/mL (> or = 4.0); Vitamin B12 321 pg/mL (200-900)
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
[2024-12-18] MEDS: clonazePAM 1 MG TABLET PO ×2 (13:11→20:14)
[2024-12-18 15:17] VITALS: BP 108/64
[2024-12-18 20:00] VITALS: BP 127/79; PULSE 80; TEMP 36.2; O2SAT 96
[2024-12-18] MEDS: Lithium Carbonate 300 MG TABLET 150 MG PO (20:12)
[2024-12-18] MEDS: lamoTRIgine 25 MG TABLET 150 MG PO (20:13)
[2024-12-18] MEDS: Mirtazapine 15 MG TABLET PO (20:13)
[2024-12-19] MEDS: Dextroamphetamine/Amphetamine XR 10 MG CAP.ER.24H 30 MG PO (05:58)
[2024-12-19] MEDS: Omeprazole 20 MG CAPSULE.DR PO (07:53)
[2024-12-19 08:00] VITALS: BP 131/89; PULSE 68; RESP 16; TEMP 36.4; O2SAT 97
[2024-12-19] MEDS: Loratadine 10 MG TABLET PO (08:09)
[2024-12-19] MEDS: Gabapentin 300 MG CAPSULE PO ×2 (08:09→20:34)
[2024-12-19] MEDS: Mirabegron 50 MG TAB.ER.24H PO (08:09)
[2024-12-19] MEDS: lamoTRIgine 100 MG TABLET PO (08:09)
[2024-12-19] MEDS: Escitalopram Oxalate 20 MG TABLET PO (08:09)
[2024-12-19] MEDS: cloNIDine HCL 0.1 MG TABLET PO ×3 (08:09→20:34)
[2024-12-19] MEDS: Ibuprofen 800 MG TABLET PO ×3 (08:09→20:36)
[2024-12-19] MEDS: Lithium Carbonate 300 MG CAPSULE PO ×2 (08:09→20:33)
[2024-12-19] MEDS: Thiamine HCL 100 MG TABLET PO (08:09)
[2024-12-19] MEDS: Multivitamin TABLET 1 TAB PO (08:09)
[2024-12-19] MEDS: Cariprazine HCl 3 MG CAPSULE 6 MG PO (08:10)
[2024-12-19 08:19] LABS: Lithium 0.81 mmol/L (0.60-1.20)
[2024-12-19] MEDS: clonazePAM 1 MG TABLET PO ×2 (13:40→20:34)
[2024-12-19 14:41] VITALS: BP 118/71
[2024-12-19 19:57] VITALS: BP 130/84; PULSE 89; TEMP 36.5; O2SAT 89
[2024-12-19] MEDS: lamoTRIgine 25 MG TABLET 150 MG PO (20:33)
[2024-12-19] MEDS: Mirtazapine 7.5 MG TABLET 22.5 MG PO (20:34)
[2024-12-19] MEDS: Lithium Carbonate 300 MG TABLET 150 MG PO (20:35)
[2024-12-19] MEDS: traZODone HCL 50 MG TABLET PO (20:36)
[2024-12-19] MEDS: Atorvastatin Calcium 20 MG TABLET PO (20:36)
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
[2024-12-20] MEDS: Omeprazole 20 MG CAPSULE.DR PO (06:19)
[2024-12-20] MEDS: Dextroamphetamine/Amphetamine XR 10 MG CAP.ER.24H 30 MG PO (06:19)
[2024-12-20] MEDS: Dry Mouth Spray 60 ML SPRAY 1 SPRAY MUCOUS MEM (06:20)
[2024-12-20 08:00] VITALS: BP 116/79; PULSE 74; RESP 18; TEMP 36.8; O2SAT 98
[2024-12-20] MEDS: Cariprazine HCl 3 MG CAPSULE 6 MG PO (08:46)
[2024-12-20] MEDS: lamoTRIgine 100 MG TABLET PO (08:46)
[2024-12-20] MEDS: Mirabegron 50 MG TAB.ER.24H PO (08:46)
[2024-12-20] MEDS: Loratadine 10 MG TABLET PO (08:46)
[2024-12-20] MEDS: clonazePAM 1 MG TABLET PO ×3 (08:46→20:57)
[2024-12-20] MEDS: Gabapentin 300 MG CAPSULE PO ×2 (08:47→20:57)
[2024-12-20] MEDS: Thiamine HCL 100 MG TABLET PO (08:47)
[2024-12-20] MEDS: Ibuprofen 800 MG TABLET PO ×2 (08:47→20:57)
[2024-12-20] MEDS: buPROPion HCL 75 MG TABLET 37.5 MG PO (08:47)
[2024-12-20] MEDS: Lithium Carbonate 300 MG CAPSULE PO ×2 (08:47→20:59)
[2024-12-20] MEDS: cloNIDine HCL 0.1 MG TABLET PO ×3 (08:47→20:58)
[2024-12-20] MEDS: Escitalopram Oxalate 20 MG TABLET PO (08:47)
--- NOTE | 2024-12-20 11:42 | HO.PSYCHPN ---
Subjective Subjective Date of Service: 12/20/24 Reason For Visit: Mood dysregulation Subjective Notes: Conditional Voluntary Healthcare Proxy: No Guardianship: No Medical Problems Affecting Mental Status: No Interim History: Planning discharge for 12/21. Anxious to reconnect with her children. Tolerating recent med changes. Declines a couples meeting with partner prior to discharge. Denies SI,HI,AH,VH No sx of acute david, psychosis Medication Compliance: Yes Side effects from medications: No Attending Groups: Intermittent Review of Systems Acute medical concerns: No Medical Review of Systems: unchanged Review of Systems Review of Systems Yes all other systems are reviewed and are negative Mental Status Exam Mental Status Exam Patient Appearance: Appropriate Patient Orientation: Person, Place, Time and Situation Level of Consciousness: Alert Patient Behavior: Appropriate, Talkative, Cooperative and Good Eye Contact Mood Description: Appropriate Affect Description: Appropriate and Flat Patient Cognition Impaired: No Ability to Follow Directions: Good Speech Pattern: Spontaneous Speech Memory Description: Intact Hallucinations: None Delusions: Not Present Thought Process: Goal Oriented Thought Content: positive for Goal Oriented Depressive Symptoms: Low Self Esteem Judgement: Good Diagnostics Vital Signs (24Hr): Vital Signs - 24 hr 12/19/24 14:41 12/19/24 19:57 12/20/24 08:00 Temperature 97.7 F 98.2 F Pulse Rate 89 74 Respiratory Rate 18 Blood Pressure 118/71 130/84 116/79 Pulse Oximetry 89 L 98 Oxygen Delivery Method Room Air Room Air BMI result Body Mass Index 30.3 Labs 12/16/24 15:47 12/17/24 17:16 Labs: Laboratory Results - last 48 hr 12/19/24 07:41 [place] 0.81 Medications Medications Current Medications Acetaminophen (Acetaminophen 325 Mg Tablet) 650 mg PO Q6H PRN PRN Reason: Headache/Pain, Scale 1-10 Al Hydroxide/Mg Hydroxide (Magnesium Hydrox/Alum Hydrox 30 Ml Oral.Susp) 30 ml PO Q6H PRN PRN Reason: Heartburn/Nausea Albuterol Sulfate (Albuterol Sulfate 90 Mcg 8 Gm Inhaler) 2 puff INHALE Q4H PRN PRN Reason: Shortness Of Breath Or Wheezing Amphetamine/Dextroamphetamine (Dextroamphetamine/Amphetamine Xr 10 Mg Cap.Er.24h) 30 mg PO DAILY@0600 [facility] Last Admin: 12/20/24 06:19 Dose: 30 mg Atorvastatin Calcium (Atorvastatin Calcium 20 Mg Tablet) 20 mg PO BEDTIME [facility] Last Admin: 12/19/24 20:36 Dose: 20 mg Bupropion HCl (Bupropion Hcl 75 Mg Tablet) 37.5 mg PO DAILY [facility] Last Admin: 12/20/24 08:47 Dose: 37.5 mg Cariprazine (Cariprazine Hcl 3 Mg Capsule) 6 mg PO DAILY [facility] Last Admin: 12/20/24 08:46 Dose: 6 mg Clonazepam (Clonazepam 1 Mg Tablet) 1 mg PO TID [facility] Last Admin: 12/20/24 08:46 Dose: 1 mg Clonidine HCl (Clonidine Hcl 0.1 Mg Tablet) 0.1 mg PO TID [facility]; Protocol Last Admin: 12/20/24 08:47 Dose: 0.1 mg Docusate Sodium (Docusate Sodium 100 Mg Capsule) 100 mg PO BID PRN PRN Reason: Constipation Escitalopram Oxalate (Escitalopram Oxalate 20 Mg Tablet) 20 mg PO DAILY [facility] Last Admin: 12/20/24 08:47 Dose: 20 mg Gabapentin (Gabapentin 300 Mg Capsule) 300 mg PO BID [facility] Last Admin: 12/20/24 08:47 Dose: 300 mg Hydroxyzine HCl (Hydroxyzine Hcl 25 Mg Tablet) 25 mg PO Q6H PRN PRN Reason: mild anxiety Ibuprofen (Ibuprofen 800 Mg Tablet) 800 mg PO TID [facility] Last Admin: 12/20/24 08:47 Dose: 800 mg Lamotrigine (Lamotrigine 100 Mg Tablet) 100 mg PO DAILY [facility] Last Admin: 12/20/24 08:46 Dose: 100 mg Lamotrigine (Lamotrigine 25 Mg Tablet) 150 mg PO BEDTIME [facility] Last Admin: 12/19/24 20:33 Dose: 150 mg [place] Carbonate ([place] Carbonate 300 Mg Tablet) 150 mg PO BEDTIME [facility] Last Admin: 12/19/24 20:35 Dose: 150 mg [place] Carbonate ([place] Carbonate 300 Mg Capsule) 300 mg PO BID [facility] Last Admin: 12/20/24 08:47 Dose: 300 mg Loratadine (Loratadine 10 Mg Tablet) 10 mg PO DAILY [facility] Last Admin: 12/20/24 08:46 Dose: 10 mg Magnesium Hydroxide (Milk Of Magnesia 30 Ml Oral.Susp) 30 ml PO DAILY PRN PRN Reason: Constipation Mirabegron (Mirabegron 50 Mg Tab.Er.24h) 50 mg PO DAILY [facility] Last Admin: 12/20/24 08:46 Dose: 50 mg Mirtazapine (Mirtazapine 7.5 Mg Tablet) 22.5 mg PO BEDTIME [facility] Last Admin: 12/19/24 20:34 Dose: 22.5 mg Nicotine Polacrilex (Nicotine Polacrilex 2 Mg Gum) 4 mg BUCCAL Q2H PRN PRN Reason: Nicotine Cravings Omeprazole (Omeprazole 20 Mg Capsule.Dr) 20 mg PO DAILY@0630 [facility] Last Admin: 12/20/24 06:19 Dose: 20 mg Saliva Substitute (Dry Mouth [place] 60 Ml [place]) 1 spray MUCOUS MEM Q2H PRN PRN Reason: Dry Mouth Last Admin: 12/20/24 06:20 Dose: 1 spray Thiamine HCl (Thiamine Hcl 100 Mg Tablet) 100 mg PO DAILY [facility] Last Admin: 12/20/24 08:47 Dose: 100 mg Trazodone HCl (Trazodone Hcl 50 Mg Tablet) 50 mg PO BEDTIME PRN PRN Reason: Sleep Last Admin: 12/19/24 20:36 Dose: 50 mg Allergies Allergies Allergy/AdvReac Type Severity Reaction Status Date / Time No Known Allergies Allergy Verified 12/16/24 16:08 Assessment & Plan Assessment & Plan (1) Posttraumatic stress disorder: Status: Acute Code(s): F43.10 - Post-traumatic stress disorder, unspecified (2) Bipolar 2 disorder: Status: Acute Code(s): F31.81 - Bipolar II disorder (3) Borderline personality disorder: Status: Acute Code(s): F60.3 - Borderline personality disorder Plan PTSD, Bipolar Disorder II, Borderline Personality Disorder. S/p medicine abuse with erratic driving. Plan: Admit, CV, 15 minute checks Continue current regime, monitor Collateral Contact Diagnostics as needed Full milieu Discharge planning. 12/19: Wellbutrin 37.5 mg a.m. Increase Mirtazapine to 22.5 mg HS 12/20: DC 12/21 Pt declines family meeting prior to DC Reason for continued inpatient stay Substantial Risk for: rapid decompensation Time Spent With Patient Time: Total time managing care of this patient today ____ minutes.
[2024-12-20 14:17] VITALS: BP 111/69
[2024-12-20 15:47] VITALS: BMI 31.7
[2024-12-20 20:00] VITALS: BP 145/65; PULSE 85; TEMP 36.6; O2SAT 96
[2024-12-20] MEDS: Mirtazapine 7.5 MG TABLET 22.5 MG PO (20:57)
[2024-12-20] MEDS: lamoTRIgine 25 MG TABLET 150 MG PO (20:57)
[2024-12-20] MEDS: Atorvastatin Calcium 20 MG TABLET PO (20:57)
[2024-12-20] MEDS: Lithium Carbonate 300 MG TABLET 150 MG PO (20:58)
[2024-12-20] MEDS: traZODone HCL 50 MG TABLET PO (20:59)
[2024-12-21] MEDS: Acetaminophen 325 MG TABLET 650 MG PO (05:59)
[2024-12-21] MEDS: Dextroamphetamine/Amphetamine XR 10 MG CAP.ER.24H 30 MG PO (06:00)
[2024-12-21] MEDS: Omeprazole 20 MG CAPSULE.DR PO (06:00)
[2024-12-21 08:00] VITALS: BP 131/77; PULSE 98; RESP 18; TEMP 36.1; O2SAT 98
[2024-12-21 08:44] VITALS: BP 131/77
[2024-12-21] MEDS: Gabapentin 300 MG CAPSULE PO (08:44)
[2024-12-21] MEDS: lamoTRIgine 100 MG TABLET PO (08:44)
[2024-12-21] MEDS: cloNIDine HCL 0.1 MG TABLET PO (08:44)
[2024-12-21] MEDS: Loratadine 10 MG TABLET PO (08:44)
[2024-12-21] MEDS: Cariprazine HCl 3 MG CAPSULE 6 MG PO (08:44)
[2024-12-21] MEDS: Thiamine HCL 100 MG TABLET PO (08:44)
[2024-12-21] MEDS: Ibuprofen 800 MG TABLET PO (08:45)
[2024-12-21] MEDS: clonazePAM 1 MG TABLET PO (08:45)
[2024-12-21] MEDS: Lithium Carbonate 300 MG CAPSULE PO (08:45)
[2024-12-21] MEDS: Escitalopram Oxalate 20 MG TABLET PO (08:45)
[2024-12-21] MEDS: Mirabegron 50 MG TAB.ER.24H PO (08:46)
[2024-12-21] MEDS: buPROPion HCL 75 MG TABLET 37.5 MG PO (08:46)
--- NOTE | 2024-12-21 10:36 | P.DS_ITS ---
DS: Providers Provider Date of admission: 12/17/24 15:27 Primary care physician: Unknown Physician DS: Diagnosis Discharge Diagnosis (1) Posttraumatic stress disorder: Status: Acute (2) Bipolar 2 disorder: Status: Acute (3) Borderline personality disorder: Status: Acute DS: Medications Discharge Medications Home Medications: Previous Rx's ?Medication ?Instructions ?Recorded albuterol sulfate 90 mcg/actuation 2 puff inhalation Q4H PRN 12/21/24 aerosol inhaler Shortness Of Breath Or Wheezing #1 inhaler bupropion HCl 75 mg tablet 37.5 mg (1/2 x 75 mg) PO DAILY #15 12/21/24 tabs cariprazine 6 mg capsule (Vraylar) 6 mg PO DAILY #30 caps 12/21/24 clonazepam 1 mg tablet 1 mg PO 0900,1300,2100 #90 tabs 12/21/24 clonidine HCl 0.1 mg tablet 0.1 mg PO 0900,1300,2100 #90 tabs 12/21/24 dextroamphetamine-amphetamine ER 30 mg (3 x 10 mg) PO DAILY@0600 12/21/24 10 mg 24hr capsule,extend release #30 caps (Adderall XR) docusate sodium 100 mg capsule 100 mg PO BID PRN Constipation #60 12/21/24 caps escitalopram oxalate 20 mg tablet 20 mg PO DAILY #30 tabs 12/21/24 esomeprazole magnesium 40 mg 40 mg PO DAILY@0630 #30 caps 12/21/24 capsule,delayed release gabapentin 300 mg capsule 300 mg PO BID #60 caps 12/21/24 ibuprofen 800 mg tablet 800 mg PO TID #90 tabs 12/21/24 lamotrigine 100 mg tablet 100 mg PO DAILY #30 tabs 12/21/24 lamotrigine 150 mg tablet 150 mg PO BEDTIME #30 tabs 12/21/24 (Lamictal) lithium carbonate 300 mg capsule 300 mg PO BID #60 caps 12/21/24 lithium carbonate 300 mg tablet 150 mg (1/2 x 300 mg) PO BEDTIME 12/21/24 #30 tabs loratadine 10 mg tablet (Claritin) 10 mg PO DAILY #30 tabs 12/21/24 mirabegron 50 mg tablet,extended 50 mg PO DAILY #30 tabs 12/21/24 release 24 hr (Myrbetriq) mirtazapine 45 mg tablet 22.5 mg (1/2 x 45 mg) PO BEDTIME 12/21/24 #15 tabs simvastatin 40 mg tablet 40 mg PO BEDTIME #30 tabs 12/21/24 thiamine mononitrate (vit B1) 100 100 mg PO DAILY #30 tabs 12/21/24 mg tablet trazodone 50 mg tablet 50 mg PO BEDTIME PRN Sleep #30 tabs 12/21/24 Data Data Completed and Pending Completed studies during hospitalization [Text1]: 12/16/24 12/16/24 12/17/24 15:47 16:50 06:37 WBC 15.5 H RBC 4.65 Hgb 14.3 Hct 43.0 MCV 92.5 MCH 30.8 MCHC 33.3 RDW 14.1 Plt Count 526 H MPV 9.9 Immature Gran % (Auto) Cancelled Neut % (Auto) Cancelled Lymph % (Auto) Cancelled [place] % (Auto) Cancelled Eos % (Auto) Cancelled Baso % (Auto) Cancelled Lymph # (Auto) Cancelled [place] # (Auto) Cancelled Eos # (Auto) Cancelled Baso # (Auto) Cancelled Abs Immat Gran (auto) Cancelled Absolute Neuts (auto) Cancelled Absolute Nucleated RBC 0.000 Nucleated RBC % (auto) 0.0 Neutrophils % (Manual) 53 Band Neutrophils % 0 L Lymphocytes % (Manual) 28 Atypical Lymphs % (Man) 10 H Monocytes % (Manual) 5 Eosinophils % (Manual) 3 Basophils % (Manual) 1 Abs Neuts (Manual) 8.2 Lymphocytes # (Manual) 4.3 Atyp Lymphs # (Manual) 1.6 Monocytes # (Manual) 0.8 Eosinophils # (Manual) 0.5 H Basophils # (Manual) 0.2 Toxic Vacuolation PRESENT Platelet Estimate SLIGHTLY INCREASED Plt Morphology Comment NORMAL RBC Morphology NOTED [place] Cells 2+ (3-5) Acanthocytes (Spur) 2+ (3-5) Smear Path Review SEE NOTE Sodium 137 Potassium 4.3 Chloride 109 H Carbon Dioxide 19 L Anion Gap 13 BUN 9 Creatinine 0.80 Estim Creat Clear Calc 103.1 Estimated GFR > 60 Random Glucose 113 Estimat Average Glucose Hemoglobin A1c % Calcium 9.8 Magnesium Total Bilirubin 0.3 AST 38 H ALT 29 Alkaline Phosphatase 67 Total Protein 7.4 Albumin 4.0 Triglycerides Cholesterol LDL Cholesterol, Calc HDL Cholesterol Vitamin B12 Folate TSH Free T4 Beta HCG, Quant < 2 Urine Color Yellow Urine Appearance Cloudy Urine pH 7.5 Ur Specific [place] 1.015 Urine Protein Negative Urine Glucose (UA) Negative Urine Ketones Negative Urine Blood Negative Urine Nitrite Negative Ur Leukocyte Esterase Trace H Urine RBC 0-2 Urine WBC 6-10 H Ur Squamous Epith Cells 11-20 Urine Bacteria 1+ Hyaline Casts 0-2 Salicylates < 5.0 L Urine Opiates Screen Not Detected Ur Buprenorphine Scrn Not Detected Ur Oxycodone Screen Not Detected Urine Methadone Screen Not Detected Urine Fentanyl Screen Not Detected Acetaminophen < 3 Ur Barbiturates Screen Not Detected Ur Phencyclidine Scrn Not Detected Ur Amphetamines Screen Not Detected U Benzodiazepines Scrn POSITIVE H [place] Urine Cocaine Screen Not Detected U Marijuana (THC) Screen POSITIVE H Ethyl Alcohol < 10 12/17/24 12/18/24 12/19/24 17:16 08:24 07:41 WBC RBC Hgb Hct MCV MCH MCHC RDW Plt Count MPV Immature Gran % (Auto) Neut % (Auto) Lymph % (Auto) [place] % (Auto) Eos % (Auto) Baso % (Auto) Lymph # (Auto) [place] # (Auto) Eos # (Auto) Baso # (Auto) Abs Immat Gran (auto) Absolute Neuts (auto) Absolute Nucleated RBC Nucleated RBC % (auto) Neutrophils % (Manual) Band Neutrophils % Lymphocytes % (Manual) Atypical Lymphs % (Man) Monocytes % (Manual) Eosinophils % (Manual) Basophils % (Manual) Abs Neuts (Manual) Lymphocytes # (Manual) Atyp Lymphs # (Manual) Monocytes # (Manual) Eosinophils # (Manual) Basophils # (Manual) Toxic Vacuolation Platelet Estimate Plt Morphology Comment RBC Morphology [place] Cells Acanthocytes ([place]) Smear Path Review Sodium 138 Potassium 4.8 Chloride 106 Carbon Dioxide 25 Anion Gap 12 BUN 8 L Creatinine 0.75 Estim Creat Clear Calc 110.0 Estimated GFR > 60 Random Glucose 108 Estimat Average Glucose 108 Hemoglobin A1c % 5.4 Calcium 9.5 Magnesium 2.2 Total Bilirubin 0.4 AST 35 H ALT 30 Alkaline Phosphatase 74 Total Protein 7.4 Albumin 4.1 Triglycerides 221 H Cholesterol 229 H LDL Cholesterol, Calc 146 H HDL Cholesterol 39 L Vitamin B12 321 Folate 4.9 TSH 1.39 Free T4 0.87 Beta HCG, Quant Urine Color Urine Appearance Urine pH Ur Specific [place] Urine Protein Urine Glucose (UA) Urine Ketones Urine Blood Urine Nitrite Ur Leukocyte Esterase Urine RBC Urine WBC Ur Squamous Epith Cells Urine Bacteria Hyaline Casts Salicylates Urine Opiates Screen Ur Buprenorphine Scrn Ur Oxycodone Screen Urine Methadone Screen Urine Fentanyl Screen Acetaminophen Ur Barbiturates Screen Ur Phencyclidine Scrn Ur Amphetamines Screen U Benzodiazepines Scrn [place] 0.81 Urine Cocaine Screen U Marijuana (THC) Screen Ethyl Alcohol 12/17/24 Unknown Urine clean catch - Clean Catch Midstream Urine Culture - Final DS: Summary Time Spent with Patient Time attestation: Total time managing care of this patient today ____ minutes. Discharge Plan Discharge Anticipated Discharge Date/Time: 12/21/24 12:00 Patient Disposition: Home, Self-Care Discharge Diagnosis: PTSD Bipolar Disorder, II Borderline Personality Disorder Referrals: Physician,Unknown J [Primary Care Provider] - 1 Week Discharge Medications: New clonidine HCl 0.1 mg Tablet 0.1 mg PO 0900,1300,2100 Qty: 90 0RF Protocol: Hold for SBP< HOLD for SBP < : 90 bupropion HCl 75 mg Tablet 37.5 mg PO DAILY Qty: 15 0RF trazodone 50 mg Tablet 50 mg PO BEDTIME PRN (Reason: Sleep) Qty: 30 0RF ibuprofen 800 mg Tablet 800 mg PO TID Qty: 90 0RF clonazepam 1 mg Tablet 1 mg PO 0900,1300,2100 Qty: 90 0RF lithium carbonate 300 mg Capsule 300 mg PO BID Qty: 60 0RF docusate sodium 100 mg Capsule 100 mg PO BID PRN (Reason: Constipation) Qty: 60 0RF gabapentin 300 mg Capsule 300 mg PO BID Qty: 60 0RF dextroamphetamine-amphetamine [Adderall XR] 10 mg Capsule,Extended Release 24hr 30 mg PO DAILY@0600 Qty: 30 0RF Rx Instructions: Partial Fill upon patient request. lithium carbonate 300 mg Tablet 150 mg PO BEDTIME Qty: 30 0RF lamotrigine 100 mg Tablet 100 mg PO DAILY Qty: 30 0RF escitalopram oxalate 20 mg Tablet 20 mg PO DAILY Qty: 30 0RF mirabegron [Myrbetriq] 50 mg Tablet Extended Release 24 Hr 50 mg PO DAILY Qty: 30 0RF thiamine mononitrate (vit B1) 100 mg Tablet 100 mg PO DAILY Qty: 30 0RF mirtazapine 45 mg tablet 22.5 mg PO BEDTIME Qty: 15 0RF lamotrigine [Lamictal] 150 mg tablet 150 mg PO BEDTIME Qty: 30 0RF Vraylar 6 mg capsule 6 mg PO DAILY Qty: 30 0RF Continued simvastatin 40 mg tablet 40 mg PO BEDTIME Qty: 30 0RF esomeprazole magnesium 40 mg capsule,delayed release(DR/EC) 40 mg PO DAILY@0630 Qty: 30 0RF albuterol sulfate 90 mcg/actuation HFA aerosol inhaler 2 puff inhalation Q4H PRN (Reason: Shortness Of Breath Or Wheezing) Qty: 1 0RF loratadine [Claritin] 10 mg tablet 10 mg PO DAILY Qty: 30 0RF Discontinued mirabegron [Myrbetriq] 50 mg tablet extended release 24 hr 50 mg PO DAILY Qty: 90 1RF clonidine HCl 0.1 mg tablet 0.1 mg PO TID trazodone 50 mg tablet 50 mg PO BEDTIME PRN (Reason: Sleep) ibuprofen 800 mg tablet 800 mg PO TID clonazepam 1 mg tablet 1 mg PO TID PRN (Reason: Anxiety) lithium carbonate 150 mg capsule 150 mg PO BEDTIME lithium carbonate 300 mg capsule 300 mg PO BID gabapentin 300 mg capsule 300 mg PO BID dextroamphetamine-amphetamine 30 mg capsule,extended release 24hr 1 cap PO DAILY lamotrigine 100 mg tablet 100 mg PO DAILY escitalopram oxalate 20 mg tablet 20 mg PO DAILY cholecalciferol (vitamin D3) 25 mcg (1,000 unit) tablet 25 mcg PO DAILY Vraylar 6 mg capsule 6 mg PO DAILY lamotrigine 150 mg tablet 150 mg PO BEDTIME docusate sodium 100 mg Capsule 100 mg PO BID PRN (Reason: Constipation) folic acid 1 mg tablet 2 mg PO DAILY mirtazapine 15 mg Tablet 15 mg PO BEDTIME Qty: 30 0RF Discharge Orders: Discharge Order (Routine); Ordered 12/21/24 Ordered By: Marcy Spencer Diet: Advance to usual diet Activity on Discharge: As tolerated Stand Alone Forms: Patient Portal Discharge page Print Language: Uzbek Care Plan Goals: Mood and Behavioral Stabilization Health Concerns: Mood and Behavioral Stabilization Plan of Treatment: Attend scheduled appointments Take medications as directed Assessment: No SI,HI,AH,VH No sx of acute david or psychosis Pt feeling prepared to discharge She declines a couples meeting prior to discharge.
== END 2024-12-21 12:40 | disposition home or self-care (01) | DRG 885 ==
LOC: HO.ED 22:14 → HO.PM5 12-17 15:28
PROVIDERS: Emergency Medicine; Admitting Provider Clinical Nurse Specialist Psychiatric/Mental Health, Adult; Emergency Provider Emergency Medicine; Visit Provider Clinical Nurse Specialist Psychiatric/Mental Health, Adult
DX: F31.81 Bipolar II disorder (principal); R45.851 Suicidal ideations; F60.3 Borderline personality disorder; F43.10 Post-traumatic stress disorder, unspecified; Z87.891 Personal history of nicotine dependence; Z79.899 Other long term (current) drug therapy
CPT/HCPCS: 36415; 80053; 80061; 80143; 80178; 80179; 80307; 81001; 82607; 82746; 83036; 83735; 84439; 84443; 84702; 85007; 85025; 85027; 87086; 93005; 99285; S9485

== ENCOUNTER → 2024-12-16 21:05 | Outpatient (BNV) | payer MEDICARE, MEDICAID, SELFPAY | PROVIDERS: Emergency Provider Emergency Medicine; Visit Provider Internal Medicine Cardiovascular Disease | DX: R00.1 Bradycardia, unspecified (principal) | CPT/HCPCS: 93010 ==

== ENCOUNTER → 2024-12-17 15:27 | Outpatient (BNV) | payer MEDICARE, MEDICAID, SELFPAY | PROVIDERS: Admitting Provider Clinical Nurse Specialist Psychiatric/Mental Health, Adult; Emergency Provider Emergency Medicine; Visit Provider Clinical Nurse Specialist Psychiatric/Mental Health, Adult | DX: F60.3 Borderline personality disorder (principal); F31.81 Bipolar II disorder; F43.11 Post-traumatic stress disorder, acute | CPT/HCPCS: 90792; 99232 ==

== ENCOUNTER 2025-01-10 10:16 | Outpatient (AMB) | payer MEDICARE, MEDICAID, SELFPAY ==
--- NOTE | 2025-01-10 10:39 | MHC.OFFVIS ---
Vital Signs 01/10/25 10:40 Height 5 ft 3 in BP 104/78 Blood Pressure Location Lt brachial Position Sitting Pulse 78 Pulse Source Pulse Oximeter Pulse Oximetry (%) 94 Oxygen Delivery Method Room Air Intake Visit Reasons: COPD Intake Note: pt is here for follow up and states she is coughing with production, not sure of color, wheezing for over 2 weeks School Office Assistant Required: No Allergies No Known Allergies Allergy (Verified 01/10/25 10:56) Medication List - Last Reconciled 01/10/25 by Ana Ricks MD albuterol sulfate 90 mcg/actuation 2 puffs inhalation Q4H PRN albuterol sulfate 2.5 mg inhalation Q4-6H PRN bupropion HCl 37.5 mg (1/2 x 75 mg) PO DAILY cariprazine (Vraylar) 6 mg PO DAILY clonazepam 1 mg PO 0900,1300,2100 clonidine HCl 0.1 mg See Protocol PO 0900,1300,2100 dextroamphetamine-amphetamine 10 mg ER (Adderall XR) 30 mg (3 x 10 mg) PO DAILY@0600 docusate sodium 100 mg PO BID PRN escitalopram oxalate 20 mg PO DAILY esomeprazole magnesium 40 mg PO DAILY@0630 gabapentin 300 mg PO BID ibuprofen 800 mg PO TID lamotrigine (Lamictal) 150 mg PO BEDTIME lamotrigine 100 mg PO DAILY lithium carbonate 300 mg PO BID lithium carbonate 150 mg (1/2 x 300 mg) PO BEDTIME loratadine (Claritin) 10 mg PO DAILY mirabegron ER (Myrbetriq) 50 mg PO DAILY mirtazapine 22.5 mg (1/2 x 45 mg) PO BEDTIME simvastatin 40 mg PO BEDTIME thiamine mononitrate (vit B1) 100 mg PO DAILY trazodone 50 mg PO BEDTIME PRN Do you need a note to return to daycare/school/sports/work: No HPI HPI COPD: Details: This 39 years old female with ADHD disorder and chronic bronchial asthma, with past history of smoking, is here for 3 months follow-up. She is still not smoking. Has been doing okay but in the last week she is feeling more congested in the upper chest, having increased cough, and slightly more shortness of breath than usual. No fever or chills. But she does have mild to moderate amount of muco-purulent expectoration when she coughs [facility] Medical History Borderline personality disorder Bipolar 2 disorder Posttraumatic stress disorder MDD (major depressive disorder), recurrent severe, without psychosis Pre-op evaluation Seasonal allergies Urinary frequency Incontinence HLD (hyperlipidemia) Clonidine overdose Polysubstance overdose Asthma Bronchitis Smoker Borderline personality disorder Bipolar disorder, unspecified B12 deficiency Anemia Migraines Cervical cancer COPD (chronic obstructive pulmonary disease) Depression Anxiety Surgical History History of esophagogastroduodenoscopy (EGD) History of bilateral tubal ligation History of total splenectomy Family History Father No problems noted. Mother No problems noted. Social History Household Members: Children and Other Housing: Apartment Do you presently have visiting nurse or other home services: No Unable to assess alcohol history related to: Unknown Alcohol intake: never Comment: 1:1 sitter Patient Tobacco Use Status: Former Tobacco user Tobacco use type: Cigarette Cigarette Packs Per Day: 1.5 Cigarettes Per Day: 30.0 Years Smoked: 15 Quit February 2023 e-Cigarette/Vaping Use: Former Use Second Hand Smoke Exposure: Yes Substance Use Type: Former Substance User, Painkillers and Prescription Drugs service: No Current occupational status: disabled 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 Sexual orientation: Straight/Heterosexual Review of Systems Const All systems reviewed & are unremarkable except as noted in HPI and below Reports headache(s) (MIGRAINS ) ENT Reports headache(s) (MIGRAINS ) and Reports nasal congestion (MILD , INTERMITTENT .) Resp Reports cough (FREQUENT , DRY . ) Neuro Reports headache(s) (MIGRAINS ) Psych Reports anxiety and Reports depression Physical Exam Vital Signs: Last Vital Signs Pulse 78 01/10/25 10:40 BP 104/78 01/10/25 10:40 Pulse Ox 94 01/10/25 10:40 Oxygen Delivery Method Room Air 01/10/25 10:40 Const General: healthy appearing (OVERWEIGHT ,), comfortable, no acute distress, alert and awake Orientation/consciousness: patient oriented x3 HEENT Head: Yes normal to inspection General nose exam: No nasal polyps present and No nasal discharge present Face and sinus: Yes sinuses nontender Mouth: oropharynx abnormals (MILD ERYTHEMA OF THE PHARYNGEAL MUCOSA, NO EXUDATES ) Throat: Yes posterior oropharynx normal Eyes General: appearance normal, both eyes and all related structures Neck Neck: Yes normal visual inspection, Yes no lymphadenopathy, Yes trachea midline and Yes no JVD Thyroid: Thyroid normal Chest Chest palpation & inspection: normal inspection of the chest, normal palpation of entire chest wall and no tenderness Resp Other: PERCUSSION NOTE NOT PERCEPTIBLE BECAUSE OF THICK CHEST WALL. BREATH SOUNDS ARE DIMINISHED WITH PROLONGED EXPIRATORY PHASE. NO WHEEZES OR CREPITATIONS ARE HEARD TODAY. Effort & Inspection: normal respiratory effort and able to speak in complete sentences Cardio Palpation: normal PMI Rate: regular rate Rhythm: regular rhythm Heart sounds: no gallops and no murmurs Peripheral pulses: Peripheral pulses 2+ throughout GI Palpation (GI): Soft to palpation, nontender, No hepatosplenomegaly present and no masses Auscultation: normal bowel sounds Back/Spine/Pelvis Thoracic/Lumbar Spine: thoracic and lumbar spine normal to inspection Skin General skin exam: no rashes or lesions noted Neuro General: patient oriented x3 and no focal motor deficits Cranial nerves: Yes CN's II-XII intact bilaterally Extrem General: Yes normal to inspection, Yes no clubbing, cyanosis or edema, Yes no calf tenderness and No venous stasis dermatitis Psych Appearance: grossly normal and well kempt Speech and movement: Normal speech and movement present Assessment & Plan Assessment & Plan (1) Asthma: Comment: SHE HAS HISTORY OF CHRONIC BRONCHIAL ASTHMA. PULMONARY FUNCTION TEST ON 07/18/2023 SHOWED MILD OBSTRUCTIVE AIRWAY DISORDER WHICH IS COMPLETELY REVERSED AFTER BRONCHODILATOR THERAPY. THE RESULTS ARE CONSISTENT WITH BRONCHIAL ASTHMA. *FOR ACUTE EXACERBATION, IF SHE NEEDS STEROIDS, SHE HAS TO BE GIVEN BY IM OR IN THE LIQUID FORM. SHE HAS BEEN DOING OKAY EXCEPT FOR THE LAST 7-10 DAYS THAT SHE FEELS CONGESTED AND HAS INCREASED COUGH. Code(s): J45.909 - Unspecified asthma, uncomplicated Category: Medical Plan: ALBUTEROL HFA 2 PUFFS Q 6 HOURS P.R.N.. ALTERNATELY , MAY USE ALBUTEROL SOLUTION IN THE NEBULIZER Q 6 HOURS P.R.N., SHE CLAIMS IT HELPS HER MORE THAN THE INHALER. (2) Bronchitis: Comment: EACH TIME SHE GETS UPPER RESPIRATORY INFECTION SHE STARTS HAVING ONGOING SYMPTOMS OF TRACHEOBRONCHITIS. SHE USUALLY ENDS UP IN THE EMERGENCY ROOM BUT. THIS TIME SHE HAS COME TO THE OFFICE I THINK SHE HAS A MILD. CASE OR TRACHEOBRONCHITIS AT THIS TIME Code(s): J40 - Bronchitis, not specified as acute or chronic Category: Medical Plan: WILL TREAT HER WITH A COURSE OF AZITHROMYCIN (zPAK ) (3) Smoker: Comment: PATIENT HAS BEEN A HEAVY SMOKER, UP TO 2 PACKS A DAY. LUCKILY SHE QUIT SMOKING IN FEBRUARY 2023 AND SO FOR IS RESISTING GOING BACK TO SMOKING. Code(s): F17.200 - Nicotine dependence, unspecified, uncomplicated Category: Social Hx Plan: COMMENDED FOR NOT GOING BACK TO SMOKING Coding Level of Care Code Est Pt Level 3 (07810) Diagnoses Asthma J45.909 Bronchitis J40 Smoker F17.200
[2025-01-10 10:40] VITALS: BP 104/78; PULSE 78; O2SAT 94
--- OUTSIDE RECORDS SUMMARY | 2025-01-10 12:09 | XMS_ITS | Encounter Summary ---
Author Organization [employer] Address [address] [facility] 7t [place] [address] Care Team Providers Care Glue Plant Operator Name Role Phone Rhoda Pina MD Primary Care Provider [phone] Reason for Visit * Reason Onset Date Comments Hospital Follow-up 12/12/2023 Encounter Details Date Type Department Care Team ([facility] Contact Info) Description 12/12/2023 Telephone [facility] [address] [place] [address] Rhoda Pina MD [address] [place] [address] Hospital Follow-up Social History Tobacco Use Types Packs/Day Years Used Date Smoking Tobacco: Former Cigarettes Q uit: 05/11/2023 Passive Smoke Exposure: Never Smokeless Tobacco: Never Housing Stability Answer Date Recorded What is your housing situation today? I have rogelio boswell 12/12/[address] you li ve. Do you have problems with any of the following? None of the above 12/12/2023 Food Insecurity Answer Date Recorded Within the past 12 months, y ou worried that your food would run out before you got money to buy more: Often true 12/12/2023 Within the past 12 months,th e food you bought just didn't last and you didn't have enough money to get more: Often true 03/2024 Transportation Answer Date Recorded In the past 12 months, has l ack of transportation kept you from medical appts, meetings, work or from getting things needed for daily living? No 12/12/2023 Utilities Answer Date Recorded In the past 12 months, has t he electric, gas, oil or water company threatened to shut off services in your home? Yes 12/12/2023 Comments Unknown Sex and Gender Information Value Date Recorded Sex Assigned at Female 09/06/2022 10:17 AM EDT Legal Sex Female 10:17 AM EDT Gender Identity Female 09/06/2022 10:17 AM EDT Sexual Orientation Straight 09/06/2022 10 :17 AM EDT documented as of this encounter Miscellaneous Notes * Telephone Encounter - Ginger Jamar - 12/12/2023 10:39 AM EST Tc from pt requesting a HDF appt. Hospital: [facility] Date of admission: 12/02 Discharge date: 12/07 Diagnosed: Bipolar disorder Please contact pt at [phone] documented in this encounter Plan of Treatment Upcoming Encounters Date Type Department Care Team (Late st Contact Info) Description 01/18/2025 9:30 AM EDT Office Visit [facility] MED & PEDS [address] [place] [address] Rhoda Pina MD [address] [place] [address] documented as of this encounter Visit Diagnoses Not on filedocumented in this encounter Care Teams Glue Plant Operator Relationship Specialty Start Date End Date Rhoda Pina MD [address] [place] [address] PCP - General Family Medicine 10/19/12 documented as of this encounter
--- OUTSIDE RECORDS SUMMARY | 2025-01-10 12:09 | XMS_ITS | Encounter Summary ---
Author Organization [employer] Address [address] [facility] [address] 7[address] [place] [address] Care Team Providers Care Associate Sales Representative Name Role Phone Rhoda Pina MD Primary Care Provider [phone] Reason for Visit * Reason Onset Date Comments Returning Call 02/24/2024 Encounter Details Date Type Department Care Team ([facility] st Contact Info) Description 02/24/2024 Telephone [facility] MEDICINE [address] [place] [address] Rhoda Pina MD [address] [place] [address] Returning Call Social History Tobacco Use Types Packs/Day Years Used Date Smoking Tobacco: Former Cigarettes Q uit: 05/11/2023 Passive Smoke Exposure: Never Smokeless Tobacco: Never Depression Answer Date Recorded Patient Health Questionnaire-9 Score 18 02/27/2024 Patient Health Questionnaire-9 Score 18 02/27/2024 Last PHQ-9: Questionnaire Data Not on file 0 02/27/2024 Housing Stability Answer Date Recorded What is your housing situation today? I have rogelio andreia 02/10/[address] you li ve. Do you have problems with any of the following? Water leaks 02/10/2024 Food Insecurity Answer Date Recorded Within the [...] off services in your home? Yes 12/12/2023 Depression Answer Date Recorded Patient Health Questionnaire-2 Score 5 02/27/2024 Comments Unknown Sex and Gender Information Value Date Recorded Sex Assigned at Female 09/06/2022 10:17 AM EDT Legal Sex Female 10:17 AM EDT Gender Identity Female 09/06/2022 10:17 AM EDT Sexual Orientation Straight 09/06/2022 10 :17 AM EDT documented as of this encounter Miscellaneous Notes * Telephone Encounter - LOBO Buenrostro - 02/24/2024 4:50 PM EDT Allen Pastor, I called the office and they said they would relay the message and give us a call back. I asked if I could speak with a daycare manager, and they said given that after hours no one available. Thank you for all of your help trying to get the records! * Telephone Encounter - Aneesh Liang - 02/24/2024 1:09 PM EDT Tc from [facility] with [facility] calling in regards to discharge paperwork. Maricruz stated pt is being seenin [place], she provided a number to call for discharge paperwork Please contact [place] office at [phone]. If any questions you can contact Maricruz at [phone]. documented in this encounter Plan of Treatment Upcoming Encounters Date Type Department Care Team (Late st Contact Info) Description 01/18/2025 9:30 AM EDT Office Visit [facility] [address] [facility] [place] [id number] Rhoda Pina MD [address] [place] [address] documented as of this encounter Visit Diagnoses Not on filedocumented in this encounter Care Teams Associate Sales Representative Relationship Specialty Start Date End Date Rhoda Pina MD [address] [place] [address] PCP - General Family Medicine 10/19/12 documented as of this encounter
--- OUTSIDE RECORDS SUMMARY | 2025-01-10 12:09 | XMS_ITS | Encounter Summary ---
Author Organization [employer] Address [address] [facility] [address] 7[address] [place] [address] Care Team Providers Care Dev Ops Engineer Name Role Phone Rhoda Pina MD Primary Care Provider [phone] Reason for Visit * Reason Onset Date Comments Hospital Follow-up 02/10/2024 Encounter Details Date Type Department Care Team ([facility] st Contact Info) Description 02/10/2024 Telephone [facility] MEDICINE [address] [place] [address] Rhoda Pina MD [address] [place] [address] Hospital Follow-up Social History Tobacco Use Types Packs/Day Years Used Date Smoking Tobacco: Former Cigarettes Q uit: 05/11/2023 Passive Smoke Exposure: Never Smokeless Tobacco: Never Housing Stability Answer Date Recorded What is your housing situation today? I have rogelio boswell 02/10/[address] you li [...] encounter Miscellaneous Notes * Telephone Encounter - Aneesh Garth - 02/10/2024 9:30 AM EDT Tc from pt requesting a HDF appt. Hospital: [facility] Date of admission: 02/04 Discharge date: 02/08 Diagnosed: Psych documented in this encounter Plan of Treatment Upcoming Encounters Date Type Department Care Team (Late st Contact Info) Description 01/18/2025 9:30 AM EDT Office Visit [facility] MED & PEDS [address] [place] [address] Rhoda Pina MD [address] [place] [address] documented as of this encounter Visit Diagnoses Not on filedocumented in this encounter Care Teams Dev Ops Engineer Relationship Specialty Start Date End Date Rhoda Pina MD [address] [place] [address] PCP - General Family Medicine 10/19/12 documented as of this encounter
--- OUTSIDE RECORDS SUMMARY | 2025-01-10 12:09 | XMS_ITS | Encounter Summary ---
Author Organization [employer] Address [address] [facility] 7t [place] [address] Care Team Providers Care Cement Storage Worker Name Role Phone Rhoda Pina MD Primary Care Provider [phone] Reason for Visit * Reason Onset Date Comments Triage 01/25/2023 Encounter Details Date Type Department Care Team ([facility] st Contact Info) Description 01/25/2023 Telephone [facility] [address] [place] [address] Rhoda Pina MD [address] [place] [address] Triage Social History Tobacco Use Types Packs/Day Years Used Date Smoking Tobacco: Never Assessed Comments Unknown Sex and Gender Information Value Date Recorded Sex Assigned at Female 09/06/2022 10:17 AM EDT Legal Sex Female 10:17 AM EDT Gender Identity Female 09/06/2022 10:17 AM EDT Sexual Orientation Straight 09/06/2022 10 :17 AM EDT COVID-19 Exposure Response Date Recorded In the last 10 days, have yo u been in contact with someone who was confirmed or suspected to have Coronavirus/COVID-19? No / Unsure 01/25/2023 2:54 PM EDT documented as of this encounter Miscellaneous Notes * Telephone Encounter - Sheila Raygoza RN - 01/25/2023 9:45 AM EDT Call to Tammy Romero, reports having chest and back pain with deep breaths. Per pt tested positive for COVID-19 on 01/18. Per pt having wheezing with breathing. Per pt O2 sat 93% on room air. Pt having productive sputum. Per pt denies any fever in the last 24 hrs. Pt did not get paxlovid. Perpt homekit COVID-19 yesterday had a faint line. Pt alert speaking in clear full sentences. Pt advised of disposition, agrees to visit today at 3pm with Dr. Morales at [facility]. Protocol Used: COVID-19 - Diagnosed or Suspected (Adult) Protocol-Based Disposition: Discuss with PCP and Callback by Nurse within 1 Hour Override (Final) Disposition: See in Office or Video Visit Today Override Reason: Nurse judgment Video visit offer not recorded Positive Triage Questions: * [1] HIGH RISK for severe COVID complications (e.g., weak immune system, age > 64 years, obesity with BMI of 30 or higher, , chronic lung disease or other chronic medical condition) AND [2] COVID symptoms (e.g., cough, fever) (Exceptions: Already seen by PCP and no new or worsening symptoms.) * Oxygen level (e.g., pulse oximetry) 91 to 94 percent * All higher-acuity triage questions were negative Care Advice Discussed: * Reasons To Call Back - Fever over 103 F (39.4 C) - Chest pain or difficulty breathing occurs - You become worse * Telephone Encounter - Cari Reid - 01/25/2023 9:43 AM EDT Symptoms: Wheezing, Chest Pain - Adult Outcome: Transfer to a nurse or provider NOW! Reason: Trouble breathing The caller accepted this outcome Please contact pt at [phone] documented in this encounter Plan of Treatment Upcoming Encounters Date Type Department Care Team (Late st Contact Info) Description 01/18/2025 9:30 AM EDT Office Visit [facility] MED & PEDS [address] [facility] [address] Rhoda Pina MD [address] [place] [address] documented as of this encounter Visit Diagnoses Not on filedocumented in this encounter Care Teams Cement Storage Worker Relationship Specialty Start Date End Date Rhoda Pina MD [address] [place] [address] PCP - General Family Medicine 10/19/12 documented as of this encounter
--- OUTSIDE RECORDS SUMMARY | 2025-01-10 12:09 | XMS_ITS | Encounter Summary ---
Author Organization [employer] Address [address] [facility] [address] [place] [address] Care Team Providers Care Control Room Helper Name Role Phone Rhoda Pina MD Primary Care Provider [phone] Reason for Visit * Reason Onset Date Comments Med Refill 01/09/2025 Encounter Details Date Type Department Care Team ([facility] st Contact Info) Description 01/09/2025 Refill [facility] MED & PEDS [address] [place] [address] Rhoda Pina MD [address] [place] [address] Acute back pain, unspecified back location, unspecified back pain laterality Social History Tobacco Use Types Packs/Day Years [...] Patient Health Questionnaire-2 Score 5 02/27/2024 Comments No Sex and Gender Information Value Date Recorded Sex Assigned at Female 09/06/2022 10:17 AM EDT Legal Sex Female 10:17 AM EDT Gender Identity Female 09/06/2022 10:17 AM EDT Sexual Orientation Straight 09/06/2022 10 :17 AM EDT documented as of this encounter Miscellaneous Notes * Telephone Encounter - Tammy Ordaz LPN - 01/09/2025 11:37 AM EST Next appointment 01/18/25. documented in this encounter Plan of Treatment Upcoming Encounters Date Type Department Care Team (Late st Contact Info) Description 01/18/2025 9:30 AM EDT Office Visit [facility] MED & PEDS [address] [place] [address] Rhoda Pina MD [address] [place] [address] documented as of this encounter Visit Diagnoses Diagnosis Acute back pain, unspecified back location, unspecified back pain laterality documented in this encounter Additional Health Concerns Assessment Noted Time PHQ-9 Depression Total Score: 18 024 9:52 AM EDT documented as of this encounter Care Teams Control Room Helper Relationship Specialty Start Date End Date Rhoda Pina MD [address] [place] [address] PCP - General Family Medicine 10/19/12 documented as of this encounter
--- OUTSIDE RECORDS SUMMARY | 2025-01-10 12:09 | XMS_ITS | Encounter Summary ---
Author Organization [employer] Address [address] [facility] [address] 7[address] [place] [address] Care Team Providers Care Embedded Software Test Engineer Name Role Phone Rhoda Pina MD Primary Care Provider [phone] Reason for Visit * Reason Onset Date Comments FYI 12/18/2024 Encounter Details Date Type Department Care Team ([facility] st Contact Info) Description 12/18/2024 Telephone [facility] MEDICINE [address] [place] [address] Rhoda Pina MD [address] [place] [address] FYI Social History Tobacco Use Types Packs/Day Years [...] encounter Miscellaneous Notes * Telephone Encounter - Eliza Fox RN - 12/18/2024 10:39 AM EST Noted pt to f/u after discharge * Telephone Encounter - Rebekah Barron - 12/18/2024 10:07 AM EST Tc to report pt was admitted at the hospital on Saturday 12/16. documented in this encounter Plan of Treatment Upcoming Encounters Date Type Department Care Team (Late st Contact Info) Description 01/18/2025 9:30 AM EDT Office Visit [facility] MED & PEDS [address] [place] [address] Rhoda Pina MD [address] [place] [address] documented as of this encounter Visit Diagnoses Not on filedocumented in this encounter Additional Health Concerns Assessment Noted Time PHQ-9 Depression Total Score: 18 024 9:52 AM EDT documented as of this encounter Care Teams Embedded Software Test Engineer Relationship Specialty Start Date End Date Rhoda Pina MD [address] [place] [address] PCP - General Family Medicine 10/19/12 documented as of this encounter
--- OUTSIDE RECORDS SUMMARY | 2025-01-10 12:09 | XMS_ITS | Clinical Summary ---
Author Organization [employer] Address [address] [facility] [address] [place] [address] Care Team Providers Care Field Superintendent Name Role Phone Rhoda Pina MD Primary Care Provider [phone] Allergies No known active allergies Medications * This document contains information received from the source organization and may not represent a complete record from that organization. SUMAtriptan (Imitrex) 50 MG tablet Take 1 tablet (50 mg) by mouth 1 (one) time if needed for migraine. 9 tablet 023 Active docusate sodium (Colace) 100 MG capsule Take 2 capsules (200 mg) by mouth if needed at bedtime for constipation. 180 capsule 1 023 Active albuterol (2.5 MG/3ML) 0.083% nebulizer solutionIndicat ions:COPD with acute exacerbation (CMS/HCC) Take 3 mL (2.5 mg) by nebulization every 4 (four) hours if needed for wheezing or shortness of breath. 75 mL 1 023 Active aspirin-acetami nophen-caffeine (Excedrin Migraine) 250-250-65 MG tablet Take 1 tablet by mouth every 6 (six) hours if needed for headaches. 30 tablet 023 Active fluticasone (Flonase) 50 MCG/ACT nasal spray Administer 1 spray into each nostril in the morning. Shake gently. Before first use, prime pump. After use, clean tip and replace cap. 16 g 12 023 Active Adderall XR 30 MG 24 hr capsule Take 1 capsule by mouth 1 (one) time each day. 023 Active Vraylar 6 MG capsule Take 1 capsule by mouth 1 (one) time each day. 023 Active clonazePAM (KlonoPIN) 1 MG tablet Take 1 tablet by mouth 3 times daily. Active cloNIDine (Catapres) 0.1 MG tablet Take 1 tablet by mouth 3 times daily. Active esomeprazole (NexIUM) [address] capsule Take 1 capsule by mouth 1 (one) time each day. Active folic acid (Folvite) 1 MG tablet Take 1 tablet by mouth 1 (one) time each day. Active gabapentin (Neurontin) 300 MG capsule Take 1 capsule by mouth 2 times daily. Active Myrbetriq 50 MG 24 hr tablet Take 1 tablet by mouth 1 (one) time each day. Active traZODone (Desyrel) 50 MG tablet Take 1 tablet by mouth 1 (one) time each day. Active lithium 150 MG capsule Take 1 capsule by mouth at bedtime. Active Calcium Carb-Cholecalci ferol 500-2.5 MG-MCG chewable tablet Chew 2 tablets Once daily. Active escitalopram (Lexapro) 20 MG tablet Take 1 tablet by mouth Once daily. Active mirtazapine (Remeron) 15 MG tablet Take 1 tablet by mouth Once daily. Active lamoTRIgine (LaMICtal) 100 MG tablet Take 150 mg by mouth in the morning. Active cholecalciferol (Vitamin D3) 25 MCG (1000 UT) tablet TAKE 1 TABLET (25 MCG) BY MOUTH IN THE MORNING. 30 tablet Active simvastatin (Zocor) 40 MG tablet Take 1 tablet (40 mg) by mouth at bedtime. 30 tablet 2024 Active esomeprazole (NexIUM) [address] capsule Take 1 capsule (40 mg) by mouth before breakfast. Do not open capsule. 30 capsule 2024 Active tolterodine LA (Detrol LA) 4 MG 24 hr capsule Take 1 capsule by mouth Once per day. Active lithium 300 MG capsule Take 1 capsule by mouth 2 times daily. Active albuterol (ProAir HFA) 108 (90 Base) MCG/ACT inhalerIndicati ons:COPD with acute exacerbation (CMS/HCC) take 2 puffs by Inhalation route every 4 hours as needed for wheezing or shortness of breath 18 g 1 Active budesonide (Pulmicort Flexhaler) 180 MCG/ACT inhaler Inhale 1 puff in the morning and at bedtime. Rinse mouth with water after use to reduce aftertaste and incidence of candidiasis. Do not swallow. 1 each 11 024 2024 Active azithromycin (Zithromax) 250 MG tablet Take 2 tabs day and then 1 tab daily 6 tablet Active loratadine (Claritin) 10 MG tablet TAKE 1 TABLET (10 MG) BY MOUTH IN THE MORNING. 90 tablet 1 Active permethrin (Elimite) 5 % cream Massage in to skin from neck to soles of feet and wash off 8-14 hours later 60 g Active hydrocortisone 0.5 % cream Apply topically 2 times daily. 15 g 025 Active ibuprofen 800 MG tablet TAKE 1 TABLET BY MOUTH THREE TIMES DAILY. DISCONTINUE NAPROXEN. 90 tablet Active cyclobenzaprine (Flexeril) 5 MG tabletIndicatio ns:Acute back pain, unspecified back location, unspecified back pain laterality TAKE 1 TABLET BY MOUTH AT BEDTIME FOR 15 DAYS 15 tablet Active ferrous gluconate (Fergon) 324 (38 Fe) MG tablet Take 1 tablet (324 mg) by mouth with breakfast. 30 tablet 11 024 2024 cyclobenzaprine (Flexeril) 5 MG tabletIndicatio ns:Acute back pain, unspecified back location, unspecified back pain laterality TAKE 1 TABLET BY MOUTH AT BEDTIME FOR 15 DAYS 15 tablet 025 2024 Discontinued(R eorder (will not trigger notification to Pharmacy)) cyclobenzaprine (Flexeril) 5 MG tabletIndicatio ns:Acute back pain, unspecified back location, unspecified back pain laterality TAKE 1 TABLET BY MOUTH AT BEDTIME FOR 15 DAYS 15 tablet 025 2024 Discontinued(R eorder (will not trigger notification to Pharmacy)) Active Problems Problem Noted Date Diagnosed Date Hospital discharge follow-up 09/18/2024 Anemia 02/01/2023 Bipolar disorder 02/01/2023 Assessment & Plan (09/18/2024 6:35 PM EST): Patient hospitalized from 09/07 to 09/14 after taking multiple medications including gabapentin, clonidine and clonazepam, she had to be admitted to ICU were she was monitored and then transferred to psych rashid. No changes in psych medications were done, followed by therapist and psych. Today BH services were offered but she refused, no suicidal/homicidal ideas Assessment & Plan (03/17/2024 2:11 PM EDT): Reports mental health currently stable, has supports and resources in case of crisis Continues on lithium 300mg BID managed by psych - Dr. Ball Requesting lab work for lithium level in anticipation of upcoming appt with psychiatrist Hereditary spherocytosis 02/01/2023 Current smoker 02/01/2023 COPD with acute exacerbation 01/25/2023 Assessment & Plan (09/18/2024 6:36 PM EST): Will prescribe prednisone for 5 days, will renew albuterol, call back or visit er if not improving Assessment & Plan (01/25/2023 4:41 PM EDT): Patient concern for chest pain with radiation on her back on triage note. On exam report chest tightness, hx of COPD, on exam has chest tightness, wheezing and poor air movement. Will send prednisone and doxy for COPD exacerbation, recommended compliance with inhalers and f/up with PCP. Will send CXR Future Appointments Date Time Provider Department Center 01/27/2023 10:00 AM Rhoda Pina MD [facility] Thrombocytopenia 05/14/2013 Assessment & Plan (03/17/2024 2:09 PM EDT): Hx of thrombocytopenia and hereditary spherocytosis following with [facility] Heme/Onc Pt requesting repeat of CBC and iron studies today, placed Encounters Date Type Department Care Team Description 01/09/2025 Refill [facility] [address] [place] [address] Rhoda Pina MD Acute back pain, unspecified back location, unspecified back pain laterality 01/02/2025 Telephone [facility] [address] [place] [address] Rhoda Pina MD Hospital Follow-up 01/02/2025 Patient Outreach [facility] [address] [place] [address] Rhoda Pina MD Transition Of Care (Tcm) (HDF- Unscheduled - patient requesting a sooner appointment for a HDF and only with PCP. ) 12/25/2024 Patient Outreach [facility] [address] [place] [address] Rhoda Pina MD Transition Of Care (Tcm) (HDF- Unscheduled second LVM) 12/21/2024 Refill [facility] [address] [place] [address] Rhoda Pina MD Acute back pain, unspecified back location, unspecified back pain laterality 12/21/2024 Patient Outreach [facility] [address] [place] [address] Rhoda Pina MD Transition Of Care (Tcm) (HDF- Unscheduled LVM) 12/21/2024 Telephone [facility] [address] [place] [address] Rhoda Pina MD Hospital Follow-up 12/18/2024 Telephone [facility] [address] [place] [address] Rhoda Pina MD FYI 12/17/2024 Telephone [facility] [address] [place] [address] Rhoda Pina MD No Show 12/12/2024 Telephone [facility] [address] [place] [address] Rhoda Pina MD No Show 12/06/2024 Refill [facility] [address] [place] [address] Zainab Gaffney MD 12/06/2024 Orders Only [facility] [address] [place] [address] Brigido Perry MD 12/04/2024 Telephone [facility] [address] [place] [address] Rhoda Pina MD Nurse Triage 12/03/2024 Telephone [facility] [address] [place] [address] Rhoda Pina MD S Cancelled Appt (Provider out) 11/22/2024 Refill [facility] [address] [place] [address] Rhoda Pina MD Acute back pain, unspecified back location, unspecified back pain laterality 11/12/2024 Refill [facility] [address] [place] [address] Rhoda Pina MD Acute back pain, unspecified back location, unspecified back pain laterality 10/29/2024 Refill [facility] [address] [place], [place] [phone] Rhoda Pina MD 10/24/2024 Refill [facility] [address] [place], [place] [phone] Rhoda Pina MD Acute back pain, unspecified back location, unspecified back pain laterality 10/17/2024 10:00 AM EST Office Visit [facility] [address] [place] [address] Rhoda Pina MD Acute bronchitis, unspecified organism (Primary Dx) 10/17/2024 Travel from Last 3 Months Immunizations Name Administration Dates Next Due DTaP 02/02/2013 Hib (PRP-T) 06/22/2017 Martha SARS-CoV-2 Vaccination 03/26/2021 Meningococcal MCV4P ACYW-135 06/22/2017 Pneumococcal Polysaccharide PPSV23 06/22/2017 Social History Tobacco Use Types Packs/Day Years Used Date Smoking Tobacco: Former Cigarettes Q uit: 05/11/2023 Passive Smoke Exposure: Never Smokeless Tobacco: Never Tobacco Cessation:Counseling Given: Not Answered Depression Answer Date Recorded Patient Health Questionnaire-9 [...] Orientation Straight 09/06/2022 10 :17 AM EDT Last Filed Vital Signs Vital Sign Reading Time Taken Comments Blood Pressure 114/74 10/17/2024 10:01 AM EST Pulse 92 10/17/2024 10:01 AM EST Temperature 36.7 ??C (98.1 ??F) 10/17/2024 10:[address] Respiratory Rate 20 10/17/2024 10:01 AM EST Oxygen Saturation 96% 10/17/2024 10:01 AM EST Inhaled Oxygen Concentration - - Weight 87.5 kg (193 lb) 10/17/2024 10:01 AM EST Height 157.5 cm (5' 2 ) 10/17/2024 10:01 AM EST Body Mass Index 35.3 10/17/2024 10:01 AM EST Plan of Treatment Upcoming Encounters Date Type Department Care Team (Late st Contact Info) Description 01/18/2025 9:30 AM EDT Office Visit [facility] [address] [place] [address] Rhoda Pina MD [address] [place] [address] Health Maintenance Due Date Last Done Comments HIV Screening 1984 Alcohol/Substance Use Screening 1996 Family Planning (PISQ) 02/15/1999 Hepatitis C Screening 02/15/2002 Hepatitis B Vaccines (1 of 3 - 19+ 3-dose series) 02/15/2003 Pap Smear 02/15/2005 Cervical Cancer Screening 02/15/2014 HPV/Cotest 02/15/2014 Pneumococcal Vaccine: Pediatrics (0 to 5 Years) and At-Risk Patients (6 to 49) Years) (2 of 2 - PCV) 06/22/2018 06/22/2017 DTaP/Tdap/Td Vaccines (2 - Tdap) 02/02/2023 02/02/2013 Mammogram 2024 COVID-19 Vaccine (3 - season) 2024 03/26/2021, 02/09/2021 Influenza Vaccine (#1) 2024 Depression Monitoring (PHQ-9) 08/28/2024 02/27/2024, 02/27/2024 SDOH Screening 02/09/2025 02/10/2024 Depression Screening 02/26/2025 02/27/2024, 02/27/20 24 Tobacco Screening 10/17/2025 10/17/2024 Lipid Panel 03/02/2029 03/02/2024, 03/08, 05/12/2022, Additional history exists Zoster Vaccines (1 of 2) 02/15/2034 RSV Patients and Patients Aged 60 years or older (1 - 1-dose 75+ series) 02/15/2059 HIB Vaccines Aged Out 06/22/2017 No longer eligi ble based on patient's age to complete this topic Meningococcal Vaccine Aged Out 06/22/2017 No elin iram eligible based on patient's age to complete this topic HPV Vaccines Aged Out No longer eligi ble based on patient's age to complete this topic Hepatitis A Vaccines Aged Out No long er eligible based on patient's age to complete this topic IPV Vaccines Aged Out No longer eligi ble based on patient's age to complete this topic RSV under 20 months Aged Out No longe r eligible based on patient's age to complete this topic Rotavirus Vaccines Aged Out No longer eligible based on patient's age to complete this topic Procedures Procedure Name Priority Date/Time Associated Diagnosis Comments LIPID PANEL, STANDARD Routine 03/02/2024 10:00 AM EDT Bipolar disorder, current episode mixed, moderate (CMS/HCC) Abnormal finding of blood chemistry, unspecified from Last 3 Months or Most Recently Relevant to Health Maintenance Results * (ABNORMAL) Lipid Panel, Standard (03/02/2024 10:00 AM EDT) Triglycerides 175(H) <150 mg/dL [facility] Comment:Desirable Triglyceri de: less than 150 mg/dLBorderline High Triglyceride 150-199 mg/dLHigh Triglyceride: 200-499 mg/dLVery High Triglyceride: greater than or equal to 5OO mg/dL Cholesterol 216(H) <200 mg/dL [facility] Comment:Desirable Cholestero l: less than 200 mg/dLBorderline High Cholesterol: 200-239 mg/dLHigh Cholesterol: greater than 239 mg/dL LDL Cholesterol Calculated 131(H) <100 mg/dL [facility] Comment:Desirable LDL: less than 100 mg/dLNear Optimal/Above Optimal LDL: 110- 129 mg/dLBorderline High LDL: 130-159 mg/dLHigh LDL: 160-189 mg/dLVery High LDL: greater than or equal to 190 mg/dL HDL Cholesterol 50 >40 mg/dL [facility] Comment:Desirable HDL: great er than 40 mg/dL Note: This HDL assay may give artificially low results in patients with liver disease. Blood Venous blood specimen / Unknown 03/02/2024 10:00 AM EDT 03/02/2024 10:00 AM EDT us Beronica Venegas DATA INTEGRATION ANALYST LAB BLOOD ORDERABLES Final Res ult [facility] [address] [place] [address] [phone] from Last 3 Months or Most Recently Relevant to Health Maintenance Insurance [facility] STANDARD MEDICARE Care Teams Field Superintendent Relationship Specialty Start Date End Date Rhoda Pina MD [address] [place] [address] PCP - General Family Medicine 10/19/12
--- OUTSIDE RECORDS SUMMARY | 2025-01-10 12:09 | XMS_ITS | Encounter Summary ---
Author Organization [employer] Address [address] [facility] [address] [place] [address] Care Team Providers Care Filler Sifter Helper Name Role Phone Rhoda iPna MD Primary Care Provider [phone] Reason for Visit * Reason Onset Date Comments Hospital Follow-up 09/13/2024 Encounter Details Date Type Department Care Team ([facility] st Contact Info) Description 09/13/2024 Telephone [facility] [address] [place] [address] Rhoda Pina MD [address] [place] [address] Hospital Follow-up Social History Tobacco Use Types [...] Miscellaneous Notes * Telephone Encounter - Aneesh Liang - 09/13/2024 8:47 AM EST Tc from pt requesting a HDF appt. Hospital: [facility] Date of admission: 09/07/24 Discharge date: 09/14/24 Diagnosed: Psyche Pt was advised by nurse to call before initial discharge to request a follow up visit. Pt does not have phone at the moment advised to contact [phone]. ([facility] Psyche front end specialist) documented in this encounter Plan of Treatment Upcoming Encounters Date Type Department Care Team (Late st Contact Info) Description 01/18/2025 9:30 AM EDT Office Visit [facility] P[facility] [address] [place] [address] Rhoda Pina MD [address] [place] [address] documented as of this encounter Visit Diagnoses Not on filedocumented in this encounter Additional Health Concerns Assessment Noted Time PHQ-9 Depression Total Score: 18 024 9:52 AM EDT documented as of this encounter Care Teams Filler Sifter Helper Relationship Specialty Start Date End Date Rhoda Pina MD [address] [place] [id number] PCP - General Family Medicine 10/19/12 documented as of this encounter
--- OUTSIDE RECORDS SUMMARY | 2025-01-10 12:09 | XMS_ITS | Encounter Summary ---
Author Organization [employer] Address [address] [facility] [address] [place] [address] Care Team Providers Care Semiconductor Engineer Name Role Phone Rhoda Pina MD Primary Care Provider [phone] Reason for Visit * Reason Onset Date Comments Appointment Request 12/12/2023 Encounter Details Date Type Department Care Team ([facility] st Contact Info) Description 12/12/2023 Telephone [facility] [address] [place] [address] Rhoda Pina MD [address] [place], [place] [phone] Appointment Request Social History Tobacco Use Types Packs/Day Years [...] encounter Miscellaneous Notes * Telephone Encounter - Jez Ying - 12/12/2023 9:28 AM EST Tc from Melinda from [facility] calling to reschedule appt for 12/08/2022 parts data writer did explain there is no availability at the moment documented in this encounter Plan of Treatment Upcoming Encounters Date Type Department Care Team (Late st Contact Info) Description 01/18/2025 9:30 AM EDT Office Visit [facility] MED & PEDS [address] [place] [address] Rhoda Pina MD [address] [place] [address] documented as of this encounter Visit Diagnoses Not on filedocumented in this encounter Care Teams Semiconductor Engineer Relationship Specialty Start Date End Date Rhoda Pina MD [address] [place] [id number] PCP - General Family Medicine 10/19/12 documented as of this encounter
--- OUTSIDE RECORDS SUMMARY | 2025-01-10 12:09 | XMS_ITS | Encounter Summary ---
Author Organization [employer] Address [address] [facility] [address] [place] [address] Care Team Providers Care Wire Insulator Name Role Phone Rhoda Pina MD Primary Care Provider [phone] Reason for Visit * Reason Comments Transition Of Care (Tcm) HDF- Unschedule d - patient requesting a sooner appointment for a HDF and only with PCP. Encounter Details Date Type Department Care Team ([facility] Contact Info) Description 01/02/2025 Patient Outreach [facility] [address] [place] [address] Rhoda Pina MD [address] [place] [address] Transition Of Care (Tcm) (HDF- Unscheduled - patient requesting a sooner appointment for a HDF and only with PCP. ) Social History Tobacco Use Types Packs/Day Years Used Date Smoking Tobacco: Former Cigarettes Q uit: 05/11/2023 Passive Smoke Exposure: Never Smokeless Tobacco: Never Depression Answer Date Recorded Patient Health Questionnaire-9 Score 18 02/27/2024 Patient Health Questionnaire-9 Score 18 02/27/2024 Last PHQ-9: Questionnaire Data Not on file 0 02/27/2024 Housing Stability Answer Date Recorded What is your housing situation today? I have rogelio sing 02/10/[address] you li [...] as of this encounter Miscellaneous Notes * Significant Event - Darby Mason - 01/02/2025 9:56 AM EST 01/02/25 [id number] Hospital Discharges and Admission for [facility] Type of Visit Hospital Admission Date of Admission/Visit 12/17/24 Date of Discharge 12/21/24 Facility [facility] Diagnosis Posttraumatic stress disorder, Bipolar 2 disorder, Borderline personality disorder Disposition Discharged Home Follow-Up Actions Follow-Up Needed Provider appointment Follow-Up Outcome Spoke to Patient Initial Contact Date 01/02/25 JENNIFER Kirk placed outbound call to patient for HDF outreach. Patient's name and were confirmed. Patient educated on the importance of follow up with provider following inpatient admission. Patient offered an HDF appt for 01/18/2025 with . Patient would like a sooner HDF appointment with PCP and does not want to be scheduled with another provider. Patient only wants to be seen with PCP.Message sent to team nurses to follow up with patient. documented in this encounter Plan of Treatment Upcoming Encounters Date Type Department Care Team ([facility] st Contact Info) Description 01/18/2025 9:30 AM EDT Office Visit [facility] MED & PED[facility] [address] [place] [address] Rhoda Pina MD [address] [place] [address] documented as of this encounter Visit Diagnoses Not on filedocumented in this encounter Additional Health Concerns Assessment Noted Time PHQ-9 Depression Total Score: 18 024 9:52 AM EDT documented as of this encounter Care Teams Wire Insulator Relationship Specialty Start Date End Date Rhoda Pina MD [address] [place] [id number] PCP - General Family Medicine 10/19/12 documented as of this encounter
--- OUTSIDE RECORDS SUMMARY | 2025-01-10 12:09 | XMS_ITS | Clinical Summary ---
Author Organization [facility], Address [address] [place] [address] [place] [address] Phone Care Team Providers Care Animal Health Technician Name Role Phone Rhoda Pina MD Primary Care Provider [phone] Allergies No known active allergies Medications acetaminophen (TYLENOL) 325 MG tablet Take by mouth every 6 (six) hours if needed for mild pain Active albuterol 0.63 MG/3ML nebulizer solution Take 0.63 mg by nebulization every 6 (six) hours if needed for wheezing Active Albuterol Sulfate (ProAir RespiClick) 108 (90 Base) MCG/ACT aerosol powder Inhale Active amphetamine-dex troamphetamine XR (ADDERALL XR) 25 MG 24 hr capsule Take 25 mg by mouth 1 (one) time each day in the morning Do not crush or chew. Active Cariprazine HCl 4.5 MG capsule Take by mouth A ctive Cariprazine HCl 6 MG capsule Take by mouth Act iris clonazePAM (KlonoPIN) 1 MG tablet Take 1 mg by mouth 2 (two) times a day Active diphenhydrAMINE (BENADRYL) 25 MG tablet Take 25 mg by mouth every 6 (six) hours if needed for itching Active docusate sodium (COLACE) 100 MG capsule Take 100 mg by mouth 2 (two) times a day Active fluticasone-jennifer meterol (ADVAIR DISKUS) 500-50 MCG/DOSE diskus inhaler Inhale 1 puff 2 (two) times a day Rinse mouth with water after use to reduce aftertaste and incidence of candidiasis. Do not swallow. Active gabapentin (NEURONTIN) 100 MG capsule Take 200 mg by mouth 3 (three) times a day Active ibuprofen (ADVIL,MOTRIN) 600 MG tablet Take 600 mg by mouth every 6 (six) hours if needed for mild pain Active metroNIDAZOLE (FLAGYL) 500 MG tablet Take 500 mg by mouth 3 (three) times a day Active cefTRIAXone (ROCEPHIN) 1 g injection Inject into the shoulder, thigh, or buttocks Active multivitamin () 27-0.8 MG tablet Take 1 tablet by mouth 1 (one) time each day Active omeprazole (PriLOSEC) [address] capsule Take 20 mg by mouth 1 (one) time each day Do not crush or chew. Active oxyCODONE (Roxicodone) 5 MG immediate release tablet Take 5 mg by mouth every 4 (four) hours if needed for moderate pain Active pantoprazole (PROTONIX) 40 MG EC tablet Take 40 mg by mouth 1 (one) time each day before breakfast Do not crush, chew, or split. Active cefTRIAXone (ROCEPHIN) 2 g injection 0 Active chlorhexidine (PERIDEX) 0.12 % solution 0 Active clindamycin (CLEOCIN) 300 MG capsule 0 Active cloNIDine (CATAPRES) 0.1 MG tablet 0 Active fluticasone (FLONASE) 50 MCG/ACT nasal spray 0 Active gabapentin (NEURONTIN) 300 MG capsule 0 Active naproxen (NAPROSYN) 250 MG tablet Take 250 mg by mouth 1 (one) time each day with food. 0 Active ibuprofen (ADVIL,MOTRIN) 800 MG tablet 0 Active ondansetron (ZOFRAN) 4 MG tablet 0 Active oxyCODONE-aceta minophen (PERCOCET) 5-325 MG per tablet TK 1 T PO Q 4 TO 6 H PRN P. DO NOT OPERATE HEAVY MACHINE WHILE UNDER THE INFLUENCE 0 Active SUMAtriptan (IMITREX) 25 MG tablet 0 Active Active Problems Problem Noted Date Diagnosed Date Acute nontraumatic kidney injury 02/08/2020 Social History Tobacco Use Types Packs/Day Years Used Date Smoking Tobacco: Every Day Cigarettes Smokeless Tobacco: Never Alcohol Use Standard Drinks/Week Comments Never 0 (1 standard drink = 0.6 oz pur e alcohol) AUDIT-C Answer Date Recorded Q1: How often do you have a drink containing alc ohol? Never 02/08/2020 Average Number of Drinks Not on file 020 Frequency of Binge Drinking Not on file 01/2020 Comments Unknown Sex and Gender Information Value Date Recorded Sex Assigned at Not on file Legal Sex Female 11:44 AM EDT Gender Identity Not on file Sexual Orientation Not on file Plan of Treatment Health Maintenance Due Date Last Done Comments Pneumococcal Vaccine: Pediat rics (0 to 5 Years) and At-Risk Patients (6 to 64 Years) (1 of 2 - PCV) 02/15/1990 Hepatitis B Vaccine (1 of 3 - 19+ 3-dose series) 02/15 Influenza Vaccine (#1) 2024 Insurance MEDICARE MEDICAID [place] Care Teams Animal Health Technician Relationship Specialty Start Date End Date Rhoda Pina MD [address] [place] [id number] PCP - General Family Medicine 02/21/20
--- OUTSIDE RECORDS SUMMARY | 2025-01-10 12:09 | XMS_ITS | Encounter Summary ---
Author Organization [employer] Address [address] [place] [address] Care Team Providers Care Open Winder Name Role Phone Rhoda Pina MD Primary Care Provider [phone] Reason for Visit * Reason Onset Date Comments No Show 12/12/2024 Encounter Details Date Type Department Care Team ([facility] Contact Info) Description 12/12/2024 Telephone [facility] [address] [place] [address] Rhoda Pina MD [address] [place] [address] No Show Social History Tobacco Use Types Packs/Day Years [...] encounter Miscellaneous Notes * Telephone Encounter - Goran Fox - 12/12/2024 9:53 AM EST No Show 12/12/24 for F/U COPD. documented in this encounter Plan of Treatment Upcoming Encounters Date Type Department Care Team (Late st Contact Info) Description 01/18/2025 9:30 AM EDT Office Visit [facility] MED & PEDS [address] [place] [address] Rhoda Pina MD [address] [place] [address] documented as of this encounter Visit Diagnoses Not on filedocumented in this encounter Additional Health Concerns Assessment Noted Time PHQ-9 Depression Total Score: 18 024 9:52 AM EDT documented as of this encounter Care Teams Open Winder Relationship Specialty Start Date End Date Rhoda Pina MD [address] [place] [phone] PCP - General Family Medicine 10/19/12 documented as of this encounter
--- OUTSIDE RECORDS SUMMARY | 2025-01-10 12:09 | XMS_ITS | Encounter Summary ---
Author Organization [employer] Address [address] 7[address] [place] [address] Care Team Providers Care County Nurse Name Role Phone Rhoda Pina MD Primary Care Provider [phone] Reason for Visit * Reason Onset Date Comments Medication Question 08/17/2024 Encounter Details Date Type Department Care Team ([facility] st Contact Info) Description 08/17/2024 Telephone [facility] MEDICINE [address] [place] [address] Rhoda Pina MD [address] [place] [address] Medication Question Social History Tobacco Use Types Packs/Day Years [...] * Telephone Encounter - Aneesh Liang - 08/17/2024 1:55 PM EDT Tc from Klaudia with [facility] calling in regards to Ibuprofen 800 mg stating she would have to check with psychiatrist if pt can take medication due to risk of lithium poisoning. If any questions you can contact Klaudia at [phone]. documented in this encounter Plan of Treatment Upcoming Encounters Date Type Department Care Team (Late st Contact Info) Description 01/18/2025 9:30 AM EDT Office Visit [facility] MED & PEDS [address] [place] [address] Rhoda Pina MD [address] [place] [address] documented as of this encounter Visit Diagnoses Not on filedocumented in this encounter Additional Health Concerns Assessment Noted Time PHQ-9 Depression Total Score: 18 024 9:52 AM EDT documented as of this encounter Care Teams County Nurse Relationship Specialty Start Date End Date Rhoda Pina MD [address] [place] [address] PCP - General Family Medicine 10/19/12 documented as of this encounter
--- OUTSIDE RECORDS SUMMARY | 2025-01-10 12:09 | XMS_ITS | Encounter Summary ---
Author Organization [employer] Address [address] [place] [address] Care Team Providers Care Heel Scourer Name Role Phone Rhoda Pina MD Primary Care Provider [phone] Reason for Visit * Reason Onset Date Comments Nurse Triage 08/03/2024 Encounter Details Date Type Department Care Team ([facility] st Contact Info) Description 08/03/2024 Telephone [facility] MEDICINE [address] [place] [address] Rhoda Pina MD [address] [place] [address] Nurse Triage Social History Tobacco Use Types Packs/Day [...] encounter Miscellaneous Notes * Telephone Encounter - Sabine Gray RN - 08/03/2024 2:47 PM EDT Triage call Pt reports low back pain which is chronic in nature. Pt has been using naproxen for little to no pain relief. Pt is able to ambulate without a limp. Pt does report some radiation of pain and numbness into the left leg. Pt requests to speak with provider. ASK apt with Dr. Chavez 08/15/24 @ 845am. Insurance is verified as active prior to booking. Home care reviewed. Protocol Used: Back Pain (Adult) Protocol-Based Disposition: See in Office or Video Visit within 2 Weeks Video visit not offered Positive Triage Question: * Back pain is a chronic symptom (recurrent or ongoing AND lasting > 4 weeks) * All higher-acuity triage questions were negative Care Advice Discussed: * Reassurance and Education - Back Pain * Cold or Heat * Sleep * Continue Activity * Pain Medicines * Reasons To Call Back - Fever occurs - Numbness or weakness occurs - Loss of control of your bladder or bowel - Severe pain not better after taking pain medicines - Pain begins to shoot into the leg - Pain lasts over 2 weeks - Pain becomes worse - You become worse * Telephone Encounter - Aneesh Liang - 08/03/2024 2:29 PM EDT Symptom: Back Pain - Not From Injury Outcome: Schedule an urgent appointment (within 1 hour) or talk to a nurse or provider soon Reason: Weakness of the leg (Pt was triaged on 07/30 but stated call never went through) documented in this encounter Plan of Treatment Upcoming Encounters Date Type Department Care Team (Late st Contact Info) Description 01/18/2025 9:30 AM EDT Office Visit [facility] MED & PEDS [address] [place] [address] Rhoda Pina MD [address] [place] [address] documented as of this encounter Visit Diagnoses Not on filedocumented in this encounter Additional Health Concerns Assessment Noted Time PHQ-9 Depression Total Score: 18 024 9:52 AM EDT documented as of this encounter Care Teams Heel Scourer Relationship Specialty Start Date End Date Rhoda Pina MD [address] [place] [id number] PCP - General Family Medicine 10/19/12 documented as of this encounter
--- OUTSIDE RECORDS SUMMARY | 2025-01-10 12:09 | XMS_ITS | Encounter Summary ---
Author Organization [employer] Address [address] [place] [address] Care Team Providers Care Disabilities Caregiver Name Role Phone Rhoda Pina MD Primary Care Provider [phone] Reason for Visit * Reason Comments Med Refill Encounter Details Date Type Department Care Team ([facility] st Contact Info) Description 09/26/2024 Refill [facility] MED & PEDS [address] [place] [address] Rhoda Pina MD [address] [place] [address] Acute back pain, unspecified back location, unspecified [...] AM EDT documented as of this encounter Plan of Treatment Upcoming Encounters Date Type Department Care Team (Late st Contact Info) Description 01/18/2025 9:30 AM EDT Office Visit [facility] MED & PEDS [address] [place] [address] Rhoda Pina MD [address] [place] [address] documented as of this encounter Visit Diagnoses Diagnosis Acute back pain, unspecified back location, unspecified back pain laterality documented in this encounter Additional Health Concerns Assessment Noted Time PHQ-9 Depression Total Score: 18 024 9:52 AM EDT documented as of this encounter Care Teams Disabilities Caregiver Relationship Specialty Start Date End Date Rhoda Pina MD [address] [place] [address] PCP - General Family Medicine 10/19/12 documented as of this encounter
--- OUTSIDE RECORDS SUMMARY | 2025-01-10 12:09 | XMS_ITS | Encounter Summary ---
Author Organization [employer] Address [address] [place] [address] Care Team Providers Care Garment Folder Name Role Phone Rhoda Pina MD Primary Care Provider [phone] Reason for Visit * Reason Onset Date Comments Nurse Triage 12/04/2024 Encounter Details Date Type Department Care Team ([facility] st Contact Info) Description 12/04/2024 Telephone [facility] MEDICINE [address] [place] [address] Rhoda Pina MD [address] [place] [address] Nurse Triage Social History Tobacco Use Types [...] Telephone Encounter - Sheila Raygoza RN - 12/06/2024 10:20 AM EST Patient called in requesting status of request. Pt advised by Medical PAR that rx for hydrocortisone Rx sent. Per review of notes below appears that pt is looking for treatment for Scabies. Pt still denied having any onset of rash. Will send to covering provider for Dr. Pina to review and further advise regarding request for Permethrin. * Telephone Encounter - Sabine Gray RN - 12/05/2024 11:24 AM EST Triage call Pt reports exposure to scabies which was of a close nature. This occurred over the weekend and treatment had been prescribed for the person with scabies. Pt is calling to obtain scabies treatment especially due to child in the home. Pt is does not have rash or obvious sx but, has some itchiness at times. Advised Pt will forward this to [facility] nursing team today for prn follow up. Pt is advised to obtain 1% hydrocortisone cream OTC for itchiness and cool baths may help. Pt agrees with home care advise and will wait to hear from [facility] . Protocol Used: Medication Question Call (Adult) Protocol-Based Disposition: See in Office or Video Visit within 3 Days Positive Triage Question: * Prescription request for new medicine (not a refill) * All higher-acuity triage questions were negative Care Advice Discussed: * Reasons To Call Back - You have any more questions - You become worse * Telephone Encounter - Kristy Chiu - 12/05/2024 9:29 AM EST Tc from pt returning call regarding getting a medication prescribed. * Telephone Encounter - Cami Haley RN - 12/04/2024 12:14 PM EST Called pt. She states that her boyfriend has scabies and pt. Was supposed to be seen yesterday but appt. Was cancelled by office. Pt. Does not have any sx. At present but, was in full contact with boyfriend for a week before he got treated. Pt wondering if PCP would be willing to send scabies cream to pt. Pharmacy as a preventative measure. Please advise and I will call pt. Back with decision. * Telephone Encounter - Rebekah Barron - 12/04/2024 11:29 AM EST Symptom: Insect Bites (Bugs) Outcome: Schedule an appointment to be seen within 24 hours Reason: Caller denied all higher acuity questions The caller accepted this outcome. [phone] documented in this encounter Plan of Treatment Upcoming Encounters Date Type Department Care Team (Late st Contact Info) Description 01/18/2025 9:30 AM EDT Office [facility] MED & PEDS [address] [place] [address] Rhoda Pina MD [address] [place] [address] documented as of this encounter Visit Diagnoses Not on filedocumented in this encounter Additional Health Concerns Assessment Noted Time PHQ-9 Depression Total Score: 18 04/22/2 024 9:52 AM EDT documented as of this encounter Care Teams Garment Folder Relationship Specialty Start Date End Date Rhoda Pina MD [address] [place] [address] PCP - General Family Medicine 10/19/12 documented as of this encounter
--- OUTSIDE RECORDS SUMMARY | 2025-01-10 12:09 | XMS_ITS | Encounter Summary ---
Author Organization [employer] Address [address] [facility] 7t [place] [address] Care Team Providers Care Tool And Die Maker Apprentice Name Role Phone Rhoda Pina MD Primary Care Provider [phone] Reason for Visit * Reason Comments Transition Of Care (Tcm) HDF- Unschedule d second LVM Encounter Details Date Type Department Care Team ([facility] Contact Info) Description 12/25/2024 Patient Outreach [facility] MED & PEDS [address] [place] [address] Rhoda Pina MD [address] [place] [address] Transition Of Care (Tcm) (HDF- Unscheduled second LVM) Social History Tobacco Use Types Packs/Day Years [...] * Significant Event - Darby Mason - 12/25/2024 9:04 AM EST 12/25/24 0903 Hospital Discharges and Admission for [facility] Type of Visit Hospital Admission Date of Admission/Visit 12/17/24 Date of Discharge 12/21/24 [facility] Diagnosis Posttraumatic stress disorder, Bipolar 2 disorder, Borderline personality disorder Disposition Discharged Home Follow-Up Actions Follow-Up Needed Provider appointment Follow-Up Outcome Left Voicemail Initial Contact Date 12/25/24 CC Darby Kirk placed outbound call to patient for HDF outreach. CC placed second outreach call to offer patient with an HDF appointment with provider. No answer at this time. Patient's name and were not confirmed. CC left detailed message educating patient on importance of following up with provider following an inpatient admission. Provided contact information requesting a call back in order to schedule the HDF appointment. Patient educated via voicemail on extended clinic hours on Mondays and Wednesdays, and Walk-In Urgent Care Located in [facility] of [facility]. Patient provided with after-hours line for [facility], , which offer night time triage service and option to transfer to electronics utility worker provider if needed. CC will await return call from the patient. documented in this encounter Plan of Treatment Upcoming Encounters Date Type Department Care Team (Late st Contact Info) Description 01/18/2025 9:30 AM EDT Office Visit [facility] MED & PEDS [address] [place] [address] Rhoda Pina MD [address] [place] [address] documented as of this encounter Visit Diagnoses Not on filedocumented in this encounter Additional Health Concerns Assessment Noted Time PHQ-9 Depression Total Score: 18 024 9:52 AM EDT documented as of this encounter Care Teams Tool And Die Maker Apprentice Relationship Specialty Start Date End Date Rhoda Pina MD [address] [place] [address] PCP - General Family Medicine 10/19/12 documented as of this encounter
--- OUTSIDE RECORDS SUMMARY | 2025-01-10 12:09 | XMS_ITS | Encounter Summary ---
Author Organization [employer] Address [address] [facility] [address] 7t [place] [address] Care Team Providers Care Entry Level Recruiter Name Role Phone Rhoda Pina MD Primary Care Provider [phone] Reason for Visit * Reason Comments Transition Of Care (Tcm) HDF- Unschedule d LVM Encounter Details Date Type Department Care Team ([facility] Contact Info) Description 12/21/2024 Patient Outreach [facility] CHC MED & PEDS [address] [place] [address] Rhoda Pina MD [address] [place] [address] Transition Of Care (Tcm) (HDF- Unscheduled LVM) Social History Tobacco Use Types Packs/Day [...] * Significant Event - Darby Mason - 12/21/2024 11:05 AM EST 12/21/24 1103 Hospital Discharges and Admission for [facility] Type of Visit Hospital Admission Date of Admission/Visit 12/17/24 Date of Discharge 12/21/24 [facility] Diagnosis Posttraumatic stress disorder, Bipolar 2 disorder, Borderline personality disorder Disposition Discharged Home Follow-Up Actions Follow-Up Needed Provider appointment Follow-Up Outcome Left Voicemail Initial Contact Date 12/21/24 CC ----, placed outbound call to patient for HDF outreach. CC placing call to offer patient with anHDF appointment with provider. No answer at this time. Patient's name and were not confirmed. CC left detailed message educating patient on importance of following up with provider following an inpatient admission. Provided contact information requesting a call back in order to schedule the HDFappointment. Patient educated via voicemail on extended clinic hours on Mondays and Wednesdays, [facility]. Patient provided with after-hours line for [facility], , which offer night time triage service and option to transfer to education administrative assistant provider if needed. CC scanned discharge summary into patient's chart. CC will place additional outreach call within 2-5business days. documented in this encounter Plan of Treatment Upcoming Encounters Date Type Department Care Team (Late st Contact Info) Description 01/18/2025 9:30 AM EDT Office Visit [facility] CHC MED & PEDS [address] [place] [address] Rhoda Pina MD [address] [place] [address] documented as of this encounter Visit Diagnoses Not on filedocumented in this encounter Additional Health Concerns Assessment Noted Time PHQ-9 Depression Total Score: 18 024 9:52 AM EDT documented as of this encounter Care Teams Entry Level Recruiter Relationship Specialty Start Date End Date Rhoda Pina MD [address] [place] [id number] PCP - General Family Medicine 10/19/12 documented as of this encounter
--- OUTSIDE RECORDS SUMMARY | 2025-01-10 12:09 | XMS_ITS | Encounter Summary ---
Author Organization [employer] Address [address] [place] [address] Care Team Providers Care General Accounting Manager Name Role Phone Rhoda Pina MD Primary Care Provider [phone] Reason for Visit * Reason Onset Date Comments Hospital Follow-up 01/02/2025 Encounter Details Date Type Department Care Team ([facility] Contact Info) Description 01/02/2025 Telephone C [facility]EDS [address] [place] [address] Rhoda Pina MD [address] [place] [address] Hospital Follow-up Social History Tobacco Use Types [...] encounter Miscellaneous Notes * Telephone Encounter - Maren Cardozo RN - 01/02/2025 10:14 AM EST TC to pt. Author informed pt that earliest available appointment for a hospital discharge follow upwith PCP is 01/18/25 and offered appointment to pt. Pt verbalized understanding agreement to having appointment scheduled that day. Appointment scheduled for 01/18/25 at 9:30am documented in this encounter Plan of Treatment Upcoming Encounters Date Type Department Care Team (Late st Contact Info) Description 01/18/2025 9:30 AM EDT Office Visit [facility] CHC MED & PEDS [address] [place] [address] Rhoda Pina MD [address] [place] [address] documented as of this encounter Visit Diagnoses Not on filedocumented in this encounter Additional Health Concerns Assessment Noted Time PHQ-9 Depression Total Score: 18 024 9:52 AM EDT documented as of this encounter Care Teams General Accounting Manager Relationship Specialty Start Date End Date Rhoda Pina MD [address] [place] [id number] PCP - General Family Medicine 10/19/12 documented as of this encounter
--- OUTSIDE RECORDS SUMMARY | 2025-01-10 12:09 | XMS_ITS | Encounter Summary ---
Author Organization [employer] Address [address] [facility] [address] [place] [address] Care Team Providers Care Work Environment Safety Inspector Name Role Phone Rhoda Pina MD Primary Care Provider Reason for Visit * Reason Onset Date Comments Results 06/12/2024 Encounter Details Date Type Department Care Team ([facility] st Contact Info) Description 06/12/2024 Telephone [facility] MEDICINE [address] [place] [address] Rhoda Pina MD [address] [place] [address] Results Social History Tobacco Use Types Packs/Day Years [...] Telephone Encounter - Eliza Fox RN - 06/12/2024 11:30 AM EDT Pt was called and scheduled with PCP tomorrow to discuss. * Telephone Encounter - Cari Reid - 06/12/2024 9:05 AM EDT Tc from pt requesting a call in regards to her EKG, CT Scan and blood work. documented in this encounter Plan of Treatment Upcoming Encounters Date Type Department Care Team (Late st Contact Info) Description 01/18/2025 9:30 AM EDT Office Visit [facility] MED & PEDS 505 [place] [address] Rhoda Pina MD [address] [place] [address] documented as of this encounter Visit Diagnoses Not on filedocumented in this encounter Additional Health Concerns Assessment Noted Time PHQ-9 Depression Total Score: 18 024 9:52 AM EDT documented as of this encounter Care Teams Work Environment Safety Inspector Relationship Specialty Start Date End Date Rhoda Pina MD [address] [place] [address] PCP - General Family Medicine 10/19/12 documented as of this encounter
--- OUTSIDE RECORDS SUMMARY | 2025-01-10 12:09 | XMS_ITS | Encounter Summary ---
Author Organization [employer] Address [address] [facility] [address] 7[address] [place] [address] Care Team Providers Care Apricot Washer Name Role Phone Rhoda Pina MD Primary Care Provider [phone] Reason for Visit * Reason Onset Date Comments Hospital Follow-up 12/21/2024 Encounter Details Date Type Department Care Team ([facility] st Contact Info) Description 12/21/2024 Telephone [facility] MEDICINE [address] [place] [address] Rhoda Pina MD [address] [place] [address] Hospital Follow-up Social History Tobacco Use Types [...] encounter Miscellaneous Notes * Telephone Encounter - Shamar Patrick - 12/21/2024 10:51 AM EST Tc from pt requesting a HDF appt. Hospital: [facility] Date of admission: 12/17 Discharge date: 12/21 Diagnosed: Bi polar Disorder *Send message to [facility] Care Coordinators Contact pt at [phone] documented in this encounter Plan of Treatment Upcoming Encounters Date Type Department Care Team ([facility] st Contact Info) Description 01/18/2025 9:30 AM EDT Office Visit [facility] MED & PEDS [address] [place] [address] Rhoda Pina MD [address] [place] [address] documented as of this encounter Visit Diagnoses Not on filedocumented in this encounter Additional Health Concerns Assessment Noted Time PHQ-9 Depression Total Score: 18 024 9:52 AM EDT documented as of this encounter Care Teams Apricot Washer Relationship Specialty Start Date End Date Rhoda Pina MD [address] [place] [address] PCP - General Family Medicine 10/19/12 documented as of this encounter
--- OUTSIDE RECORDS SUMMARY | 2025-01-10 12:09 | XMS_ITS | Encounter Summary ---
Author Organization [employer] Address [address] [facility] [address] [place] [address] Care Team Providers Care Equal Employment Opportunity Officer Name Role Phone Rhoda Pina MD Primary Care Provider [phone] Reason for Visit * Reason Onset Date Comments Referral 04/23/2024 Encounter Details Date Type Department Care Team ([facility] st Contact Info) Description 04/23/2024 Telephone [facility] MEDICINE [address] [place] [address] Rhoda Pina MD [address] [place] [address] Referral Social History Tobacco Use Types Packs/Day Years [...] encounter Miscellaneous Notes * Telephone Encounter - Wing Marilee RN - 04/26/2024 4:01 PM EDT Tc to pt to inquire the reason behind referral request. Able to reach pt, when inquired for reason for referral, pt's response was garbled. When caller asked for clarification due to not being able to hear, call was disconnected. Called attempted to recall but reached voice mail. Left message for pt to call back. * Telephone Encounter - Aneesh Liang - 04/23/2024 1:48 PM EDT TC from pt requesting new referral: Address: [address] [place], [place] [address] [address] Facility Name: [facility] Plastic Surgery Type of Specialist: Plastic Surgeon documented in this encounter Plan of Treatment Upcoming Encounters Date Type Department Care Team (Late st Contact Info) Description 01/18/2025 9:30 AM EDT Office Visit [facility] MED & PEDS 505 [place] [address] Rhoda Pina MD [address] [place] [address] documented as of this encounter Visit Diagnoses Not on filedocumented in this encounter Additional Health Concerns Assessment Noted Time PHQ-9 Depression Total Score: 18 024 9:52 AM EDT documented as of this encounter Care Teams Equal Employment Opportunity Officer Relationship Specialty Start Date End Date Rhoda Pina MD [address] [place] [address] PCP - General Family Medicine 10/19/12 documented as of this encounter
--- OUTSIDE RECORDS SUMMARY | 2025-01-10 12:09 | XMS_ITS | Encounter Summary ---
Author Organization [employer] Address [address] [facility] [address] 7[address] [place] [address] Care Team Providers Care Assistant Clinical Nurse Manager Name Role Phone Rhoda Pina MD Primary Care Provider [phone] Reason for Visit * Reason Onset Date Comments Med Refill 12/21/2024 Encounter Details Date Type Department Care Team ([facility] st Contact Info) Description 12/21/2024 Refill [facility] MEDICINE [address] [place] [address] Rhoda Pina MD [address] [place] [address] Acute back pain, unspecified back location, unspecified [...] encounter Miscellaneous Notes * Telephone Encounter - Rebekah Barron - 12/21/2024 3:50 PM EST TC from Nurse Rudolph requesting medication refill. Medications needing refill : cyclobenzaprine (Flexeril) 5 MG tablet To be sent to: [facility] [address] documented in this encounter Plan of Treatment Upcoming Encounters Date Type Department Care Team (Late st Contact Info) Description 01/18/2025 9:30 AM EDT Office Visit [facility] MED & PEDS [address] [place] [address] Rhoda Pina MD 505 [place] [address] documented as of this encounter Visit Diagnoses Diagnosis Acute back pain, unspecified back location, unspecified back pain laterality documented in this encounter Additional Health Concerns Assessment Noted Time PHQ-9 Depression Total Score: 18 024 9:52 AM EDT documented as of this encounter Care Teams Assistant Clinical Nurse Manager Relationship Specialty Start Date End Date Rhoda Pina MD [address] [place] [address] PCP - General Family Medicine 10/19/12 documented as of this encounter
--- OUTSIDE RECORDS SUMMARY | 2025-01-10 12:09 | XMS_ITS | Encounter Summary ---
Author Organization [employer] Address [address] [place] [address] 7t [place] [address] Care Team Providers Care Deck Engine Operator Name Role Phone Rhoda Pina MD Primary Care Provider [phone] Reason for Visit * Reason Onset Date Comments Hospital Follow-up 10/20/2023 Encounter Details Date Type Department Care Team (Late st Contact Info) Description 10/20/2023 Telephone [facility] MED & PEDS [address] [place] [address] Rhoda Pina MD [address] [place] [address] Hospital Follow-up Social History Tobacco Use Types Packs/Day Years Used Date Smoking Tobacco: Former Cigarettes Q uit: 05/11/2023 Passive Smoke Exposure: Never Smokeless Tobacco: Never Comments Unknown Sex and Gender Information Value Date Recorded Sex Assigned at Female 09/06/2022 10:17 AM EDT Legal Sex Female 10:17 AM EDT Gender Identity Female 09/06/2022 10:17 AM EDT Sexual Orientation Straight 09/06/2022 10 :17 AM EDT documented as of this encounter Miscellaneous Notes * Telephone Encounter - Ginger Roldan - 10/20/2023 12:54 PM EST Tc from jenny with [facility] returning call for [facility] appointment. Pt was [facility] on 10[facility] anddischarged on 10/19. Diagnosed with gastroesophageal reflux disease Please contact jenny at [phone] documented in this encounter Plan of Treatment Upcoming Encounters Date Type Department Care Team (Late st Contact Info) Description 01/18/2025 9:30 AM EDT Office Visit [facility] CHC MED & PEDS [address] [place] [address] Rhoda Pina MD [address] [place] [address] documented as of this encounter Visit Diagnoses Not on filedocumented in this encounter Care Teams Deck Engine Operator Relationship Specialty Start Date End Date Rhoda Pina MD [address] [place] [address] PCP - General Family Medicine 10/19/12 documented as of this encounter
--- OUTSIDE RECORDS SUMMARY | 2025-01-10 12:09 | XMS_ITS | Encounter Summary ---
Author Organization [employer] Address [address] [facility] [address] [place] [address] Care Team Providers Care Certified Court/Medical Interpreter Name Role Phone Rhoda Pina MD Primary Care Provider [phone] Reason for Visit * Reason Onset Date Comments Results 11/08/2023 Encounter Details Date Type Department Care Team ([facility] Contact Info) Description 11/08/2023 Telephone [facility] MED & PEDS [address] [place] [address] Rhoda Pina MD [address] [place] [address] Results Social History Tobacco Use Types Packs/Day [...] Telephone Encounter - Eliza Fox RN - 11/10/2023 12:00 PM EST Incoming call from pt regarding message below. Pt informed of lab results and provider recommendations. Pt states seeing Dr Stevens at [facility] but it has been a couple of years. Pt informed will call them to see if new referral is needed and if so will send message to provider for placement. Ptagrees with plan. Called Hematology and spoke with Ivy. Pt had not been seen in a couple of years,but does not need new referral. They requested recent labs to be faxed. Labs printed and faxed to [phone]. Once results are received she will review with Dr Stevens and call office back with appt. Placed call to pt, LVM informing of status and will call pt back once we receive notice of appt. * Telephone Encounter - Aneesh Liang - 11/10/2023 9:17 AM EST Tc from pt requesting to speak with nurse regarding BW results stated in messages prior. Please contact pt at [phone]. * Telephone Encounter - Eliza Fox RN - 11/08/2023 11:11 AM EST Please review message below and advise on lab results and next steps. * Telephone Encounter - Cari Reid - 11/08/2023 10:20 AM EST Tc from pt requesting a call back from a nurse to speak about some blood work results just receivedon portal. Please contact pt @ [phone] documented in this encounter Plan of Treatment Upcoming Encounters Date Type Department Care Team ([facility] st Contact Info) Description 01/18/2025 9:30 AM EDT Office Visit [facility] MED & PEDS [address] [place] [address] Rhoda Pina MD [address] [place] [address] documented as of this encounter Visit Diagnoses Not on filedocumented in this encounter Care Teams Certified Court/Medical Interpreter Relationship Specialty Start Date End Date Rhoda Pina MD [address] [place] [address] PCP - General Family Medicine 10/19/12 documented as of this encounter
--- OUTSIDE RECORDS SUMMARY | 2025-01-10 12:09 | XMS_ITS | Encounter Summary ---
Author Organization [employer] Address [address] [facility] [address] [place] [address] Care Team Providers Care Doll Wig Hackler Name Role Phone Rhoda Pina MD Primary Care Provider [phone] Reason for Visit * Reason Onset Date Comments No Show 12/17/2024 Encounter Details Date Type Department Care Team ([facility] Contact Info) Description 12/17/2024 Telephone [facility] MED & PEDS [address] [place] [address] Rhoda Pina MD [address] [place] [address] No Show Social History Tobacco Use Types [...] * Telephone Encounter - Goran Fox - 12/17/2024 10:31 AM EST 12/17/24 no show for F/U COPD documented in this encounter Plan of Treatment Upcoming Encounters Date Type Department Care Team (Late st Contact Info) Description 01/18/2025 9:30 AM EDT Office Visit [facility] CH[facility] MED & PEDS [address] [place] [address] Rhoda Pina MD [address] [place] [address] documented as of this encounter Visit Diagnoses Not on filedocumented in this encounter Additional Health Concerns Assessment Noted Time PHQ-9 Depression Total Score: 18 024 9:52 AM EDT documented as of this encounter Care Teams Doll Wig Hackler Relationship Specialty Start Date End Date Rhoda Pina MD [address] [place] [address] PCP - General Family Medicine 10/19/12 documented as of this encounter
== END 2025-01-10 11:07 | disposition home or self-care (01) ==
PROVIDERS: Visit Provider Internal Medicine
DX: J45.909 Unspecified asthma, uncomplicated (principal); F17.210 Nicotine dependence, cigarettes, uncomplicated
CPT/HCPCS: 99213

== ENCOUNTER → 2025-01-10 10:16 | Outpatient (BNVA) | payer MEDICARE, MEDICAID, SELFPAY | PROVIDERS: Visit Provider Internal Medicine | DX: J40 Bronchitis, not specified as acute or chronic (principal); J44.9 Chronic obstructive pulmonary disease, unspecified; Z87.891 Personal history of nicotine dependence | CPT/HCPCS: 99212 ==

== ENCOUNTER 2025-04-14 17:41 | Emergency (ER) | payer MEDICARE, MEDICAID, SELFPAY ==
--- NOTE | ~2025-04-14 | XR_ITS ---
CLINICAL HISTORY: sob 2 view chest x-ray Comparison: None Findings: The lungs are clear. Normal size heart. No acute fracture. IMPRESSION: 1. No acute findings. This document has been electronically signed by: Gwyn Fulton MD on 04/14/2025 19:04:21
[2025-04-14 17:49] VITALS: BP 138/95; PULSE 97; RESP 17; TEMP 36.6; O2SAT 97; BMI 35.4
--- NOTE | 2025-04-14 17:49 | ED.SKABFB ---
HPI - Skin/Abscess/Foreign Bdy General Chief complaint: General Medical Stated complaint: rash on neck Time Seen by Provider: 04/14/25 21:16 Source: patient Mode of arrival: ambulatory Limitations: no limitations History of Present Illness ED Provider: HPI narrative: Patient's anxiety depression hypertension hyperlipidemia hereditary spherocytosis status post splenectomy , chronic leukocytosis comes here for the rash in the neck for last 3 days unknown etiology denies any in chemical agent applied on the neck Related Data Home Medications ?Medication ?Instructions ?Recorded ?Confirmed albuterol sulfate 2.5 mg/3 mL 2.5 mg inhalation Q4-6H PRN 01/10/25 (0.083 %) solution for nebulization Previous Rx's ?Medication ?Instructions ?Recorded albuterol sulfate 90 mcg/actuation 2 puff inhalation Q4H PRN 12/21/24 aerosol inhaler Shortness Of Breath Or Wheezing #1 inhaler bupropion HCl 75 mg tablet 37.5 mg (1/2 x 75 mg) PO DAILY #15 12/21/24 tabs cariprazine 6 mg capsule (Vraylar) 6 mg PO DAILY #30 caps 12/21/24 clonazepam 1 mg tablet 1 mg PO 0900,1300,2100 #90 tabs 12/21/24 clonidine HCl 0.1 mg tablet 0.1 mg PO 0900,1300,2100 #90 tabs 12/21/24 dextroamphetamine-amphetamine ER 30 mg (3 x 10 mg) PO DAILY@0600 12/21/24 10 mg 24hr capsule,extend release #30 caps (Adderall XR) docusate sodium 100 mg capsule 100 mg PO BID PRN Constipation #60 12/21/24 caps escitalopram oxalate 20 mg tablet 20 mg PO DAILY #30 tabs 12/21/24 esomeprazole magnesium 40 mg 40 mg PO DAILY@0630 #30 caps 12/21/24 capsule,delayed release gabapentin 300 mg capsule 300 mg PO BID #60 caps 12/21/24 ibuprofen 800 mg tablet 800 mg PO TID #90 tabs 12/21/24 lamotrigine 100 mg tablet 100 mg PO DAILY #30 tabs 12/21/24 lamotrigine 150 mg tablet 150 mg PO BEDTIME #30 tabs 12/21/24 (Lamictal) lithium carbonate 300 mg capsule 300 mg PO BID #60 caps 12/21/24 lithium carbonate 300 mg tablet 150 mg (1/2 x 300 mg) PO BEDTIME 12/21/24 #30 tabs loratadine 10 mg tablet (Claritin) 10 mg PO DAILY #30 tabs 12/21/24 mirtazapine 45 mg tablet 22.5 mg (1/2 x 45 mg) PO BEDTIME 12/21/24 #15 tabs simvastatin 40 mg tablet 40 mg PO BEDTIME #30 tabs 12/21/24 thiamine mononitrate (vit B1) 100 100 mg PO DAILY #30 tabs 12/21/24 mg tablet trazodone 50 mg tablet 50 mg PO BEDTIME PRN Sleep #30 tabs 12/21/24 azithromycin 500 mg tablet 500 mg PO DAILY 5 days #5 tabs 01/11/25 mirabegron 50 mg tablet,extended 50 mg PO DAILY #30 tabs 01/14/25 release 24 hr (Myrbetriq) clobetasol 0.05 % topical cream 1 appl topical BID 2 weeks #45 04/14/25 grams Allergies Allergy/AdvReac Type Severity Reaction Status Date / Time No Known Allergies Allergy Verified 04/14/25 17:51 Review of Systems Review of Systems: Yes all other systems are reviewed and are negative PMF Past Medical History Medical History (Updated 04/14/25 @ 22:02 by Sergio Finnegan MD) Hereditary spherocytosis Borderline personality disorder Bipolar 2 disorder Posttraumatic stress disorder MDD (major depressive disorder), recurrent severe, without psychosis Pre-op evaluation Seasonal allergies Urinary frequency Incontinence HLD (hyperlipidemia) Clonidine overdose Polysubstance overdose Asthma Bronchitis Smoker Borderline personality disorder Bipolar disorder, unspecified B12 deficiency Anemia Migraines Cervical cancer COPD (chronic obstructive pulmonary disease) Depression Anxiety Surgical History History of esophagogastroduodenoscopy (EGD) History of bilateral tubal ligation History of total splenectomy Family History Family History Father No problems noted. Mother No problems noted. Social History Social History Household Members: Children and Other Housing: Apartment Do you presently have visiting nurse or other home services: No Unable to assess alcohol history related to: Unknown Alcohol intake: never Comment: 1:1 sitter Patient Tobacco Use Status: Former Tobacco user Tobacco use type: Cigarette Cigarette Packs Per Day: 1.5 Cigarettes Per Day: 30.0 Years Smoked: 15 Quit February 2023 e-Cigarette/Vaping Use: Former Use Second Hand Smoke Exposure: Yes Substance Use Type: Former Substance User, Painkillers and Prescription Drugs Advance Directives: No Advance Directives Information Provided: No Do you have a plan to hurt others: No Plan service: No Current occupational status: disabled 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 Sexual orientation: Straight/Heterosexual Physical Exam Vital Signs: Vital Signs: Last Vital Signs Temp 98.4 F 04/14/25 20:42 Pulse 82 04/14/25 20:42 Resp 18 04/14/25 20:42 BP 136/80 04/14/25 20:42 Pulse Ox 97 04/14/25 20:42 O2 Del Method Room Air 04/14/25 20:42 BMI result Body Mass Index 35.4 Appearance: Alert. Oriented X3. No acute distress. Eyes: No pallor or icterus ENT: Pharynx normal. Oral Mucosa moist Neck: Normal inspection. Neck supple. CVS: Normal heart rate and rhythm. Pulses normal. Respiratory: No respiratory distress. Equal air entry bilateral, no wheezing/rales/rhonchi Abdomen: Soft and nontender. Bowel sounds are present, no mass palpable, no CVA tenderness Skin: Skin warm and dry. Eczematous rash over the neck bilateral Extremities: No lower extremity edema. No calf tenderness Neuro: Oriented X 3. No motor deficit. Course Course Course Narrative: This is a Rapid Medical Exam performed in triage by Verenice Tran PA-C. Full HPI, ROS and PE to be performed by primary ED provider. 40 yo F w/PMHx Bipolar, HLD, COPD, presenting to the ED c/o neck rash since Tuesday, described as burning & SOB. Also reports dry cough. Denies new meds/exposures. PE: talking in complete sentences, no resp distress, +erythematous ?contact dermatitis noted to neck line. Poor hygiene Plan: SARs, CXR, labs Medical Decision Making Medical Decision Making MDM Narrative: Patient clinically with contact dermatitis will apply clobetasol chronic leukocytosis secondary to splenectomy,no signs of infection will discharge patient home or clobetasol Lab Data [facility] Lab Attestation statement: I reviewed the patient's lab results. 04/14/25 18:04 04/14/25 18:04 Labs: Lab Results 04/14/25 Range/Units 18:04 WBC 18.0 H (4.8-10.8) X10*3/uL RBC 4.64 (4.20-5.50) X10*6/uL Hgb 13.9 (12.0-16.0) g/dl Hct 42.4 (37.0-47.0) % MCV 91.4 (80.0-98.0) fL MCH 30.0 (27.0-33.0) pg MCHC 32.8 (31.0-35.0) g/dl RDW 15.9 (11.0-16.0) % Plt Count 484 H (160-400) X10*3/uL MPV 9.3 L (9.4-12.3) fL Immature Gran % (Auto) 0.4 (0.0-0.4) % Neut % (Auto) 54.0 (45-73) % Lymph % (Auto) 31.4 (20-40) % [place] % (Auto) 11.0 (2-11) % Eos % (Auto) 2.6 (0-4) % Baso % (Auto) 0.6 (0-2) % Lymph # (Auto) 5.7 H (1.2-4.9) X10*3/uL [place] # (Auto) 2.0 H (0.1-1.2) X10*3/uL Eos # (Auto) 0.5 H (0.0-0.4) X10*3/uL Baso # (Auto) 0.1 (0.0-0.2) X10*3/uL Abs Immat Gran (auto) 0.07 H (0.00-0.03) X10*3/uL Absolute Neuts (auto) 9.7 H (2.0-8.3) x10*3/uL Absolute Nucleated RBC 0.000 (0.0-0.012) X10*3/uL Nucleated RBC % (auto) 0.0 (0.0-0.2) /100WBC Smear Tech's Comments VERIFIED Sodium 142 (135-145) mmol/L Potassium 4.9 (3.3-5.1) mmol/L Chloride 108 (96-108) mmol/L Carbon Dioxide 23 (22-29) mmol/L Anion Gap 16 (12-20) BUN 7 L (9-16) mg/dL Creatinine 0.72 (0.5-1.4) mg/dL Estim Creat Clear Calc 109.9 Estimated GFR > 60 Random Glucose 133 H (60-115) mg/dL Calcium 9.7 (8.4-10.2) mg/dL Troponin I High Sens < 2.7 (<3.5-17.0) ng/L B-Natriuretic Peptide < 10 (<100) pg/mL Influenza Type A (PCR) NEGATIVE (Negative) Influenza Type B (PCR) NEGATIVE (Negative) RSV RNA Qual (PCR) NEGATIVE (Negative) SARS-CoV-2 RNA (RT-PCR) NEGATIVE (Negative) Discharge Plan Discharge Clinical Impression: Contact dermatitis Patient Disposition: Home, Self-Care Instructions: Contact Dermatitis (ED) Additional Instructions: With a rash your neck is likely from contact dermatitis cause not sure Apply very small amount of clobetasol ointment twice a day of the rash area Your blood counts are high because you have splenectomy Prescriptions: New clobetasol 0.05 % cream 1 appl topical BID 14 Days Qty: 45 0RF No Action azithromycin 500 mg tablet 500 mg PO DAILY 5 Days Qty: 5 0RF mirabegron [Myrbetriq] 50 mg tablet extended release 24 hr 50 mg PO DAILY Qty: 30 5RF clonidine HCl 0.1 mg Tablet 0.1 mg PO 0900,1300,2100 Qty: 90 0RF Protocol: Hold for SBP< HOLD for SBP < : 90 bupropion HCl 75 mg Tablet 37.5 mg PO DAILY Qty: 15 0RF trazodone 50 mg Tablet 50 mg PO BEDTIME PRN (Reason: Sleep) Qty: 30 0RF ibuprofen 800 mg Tablet 800 mg PO TID Qty: 90 0RF clonazepam 1 mg Tablet 1 mg PO 0900,1300,2100 Qty: 90 0RF lithium carbonate 300 mg Capsule 300 mg PO BID Qty: 60 0RF docusate sodium 100 mg Capsule 100 mg PO BID PRN (Reason: Constipation) Qty: 60 0RF gabapentin 300 mg Capsule 300 mg PO BID Qty: 60 0RF dextroamphetamine-amphetamine [Adderall XR] 10 mg Capsule,Extended Release 24hr 30 mg PO DAILY@0600 Qty: 30 0RF Rx Instructions: Partial Fill upon patient request. lithium carbonate 300 mg Tablet 150 mg PO BEDTIME Qty: 30 0RF lamotrigine 100 mg Tablet 100 mg PO DAILY Qty: 30 0RF escitalopram oxalate 20 mg Tablet 20 mg PO DAILY Qty: 30 0RF thiamine mononitrate (vit B1) 100 mg Tablet 100 mg PO DAILY Qty: 30 0RF mirtazapine 45 mg tablet 22.5 mg PO BEDTIME Qty: 15 0RF lamotrigine [Lamictal] 150 mg tablet 150 mg PO BEDTIME Qty: 30 0RF Vraylar 6 mg capsule 6 mg PO DAILY Qty: 30 0RF simvastatin 40 mg tablet 40 mg PO BEDTIME Qty: 30 0RF esomeprazole magnesium 40 mg capsule,delayed release(DR/EC) 40 mg PO DAILY@0630 Qty: 30 0RF albuterol sulfate 90 mcg/actuation HFA aerosol inhaler 2 puff inhalation Q4H PRN (Reason: Shortness Of Breath Or Wheezing) Qty: 1 0RF loratadine [Claritin] 10 mg tablet 10 mg PO DAILY Qty: 30 0RF albuterol sulfate 2.5 mg /3 mL (0.083 %) solution for nebulization 2.5 mg inhalation Q4-6H PRN Print Language: Angolan
[2025-04-14 18:10] LABS: Basophils Absolute Auto 0.1 X10*3/uL (0.0-0.2); Basophils Percent Auto 0.6 % (0-2); Eosinophils Absolute Auto 0.5 X10*3/uL (0.0-0.4); Eosinophils Percent Auto 2.6 % (0-4); Hematocrit 42.4 % (37.0-47.0); Hemoglobin 13.9 g/dl (12.0-16.0); Imm Gran Abs Auto 0.07 X10*3/uL (0.00-0.03); Imm Gran Pct Auto 0.4 % (0.0-0.4); Lymphocytes Absolute Auto 5.7 X10*3/uL (1.2-4.9); Lymphocytes Percent Auto 31.4 % (20-40); Mean Corpuscular HGB Conc 32.8 g/dl (31.0-35.0); Mean Corpuscular Volume 91.4 fL (80.0-98.0); Mean Platelet Volume 9.3 fL (9.4-12.3); Neutrophils Absolute Auto 9.7 x10*3/uL (2.0-8.3); Platelet Count 484 X10*3/uL (160-400); Red Blood Count 4.64 X10*6/uL (4.20-5.50); Red Cell Distribution Width 15.9 % (11.0-16.0); SCAN SMEAR FLAG 1
[2025-04-14 18:22] LABS: Anion Gap 16 (12-20); Blood Urea Nitrogen 7 mg/dL (9-16); Calcium 9.7 mg/dL (8.4-10.2); Carbon Dioxide 23 mmol/L (22-29); Chloride 108 mmol/L (96-108); Creatinine Clr Calc Pharmacy 109.9; Estimated Glomerular Filt Rate > 60; Glucose Random 133 mg/dL (60-115); Potassium 4.9 mmol/L (3.3-5.1); Sodium 142 mmol/L (135-145)
[2025-04-14 18:29] LABS: MANUAL DIFF FLAG SCAN
[2025-04-14 18:30] LABS: B Type Natriuretic Peptide < 10 pg/mL (<100)
[2025-04-14 18:32] LABS: SLIDE REVIEW VERIFIED
[2025-04-14 18:38] LABS: Troponin-I High Sensitivity < 2.7 ng/L (<3.5-17.0)
[2025-04-14 18:48] LABS: Influenza A PCR NEGATIVE (Negative); Influenza B PCR NEGATIVE (Negative); Resp Syncy Virus RNA Qual PCR NEGATIVE (Negative); SARS COV2 PCR INHOUSE NEGATIVE (Negative)
[2025-04-14 20:42] VITALS: BP 136/80; PULSE 82; RESP 18; TEMP 36.9; O2SAT 97
[2025-04-14 22:07] VITALS: BP 136/80; PULSE 82; RESP 18; TEMP 36.9; O2SAT 97
== END 2025-04-14 22:09 | disposition home or self-care (01) ==
PROVIDERS: Physician Assistant; Emergency Provider Internal Medicine; PCP Student in an Organized Health Care Education/Training Program
DX: L25.9 Unspecified contact dermatitis, unspecified cause (principal); R21 Rash and other nonspecific skin eruption; I10 Essential (primary) hypertension; E78.5 Hyperlipidemia, unspecified; J45.909 Unspecified asthma, uncomplicated; F19.10 Other psychoactive substance abuse, uncomplicated; Z03.818 Encounter for observation for suspected exposure to other biological agents ruled out; Z87.891 Personal history of nicotine dependence; Z79.899 Other long term (current) drug therapy
CPT/HCPCS: 0241U; 71046; 80048; 83880; 84484; 85025; 99283; 99284

== ENCOUNTER → 2025-04-14 17:52 | Outpatient (BNV) | payer MEDICARE, MEDICAID, SELFPAY | PROVIDERS: PCP Student in an Organized Health Care Education/Training Program; Visit Provider Nuclear Medicine | DX: R06.02 Shortness of breath (principal) | CPT/HCPCS: 71046 ==

== ENCOUNTER 2025-04-22 14:04 | Emergency (ER) | payer MEDICARE, MEDICAID, SELFPAY ==
--- NOTE | 2025-04-22 14:18 | MHC.EDTECH ---
pt changed over with janie and HEI[facility] [place]. Walked to pod with security. Belongings secured in locker 5.
--- NOTE | 2025-04-22 14:30 | MHC.CARE ---
Vashti from [facility] called in expect for Rad Ash who has been struggling recently, patient was supposed to go to [facility] tomorrow for 10 days due to driving without a registration and license. She emailed a picture to outpatient providers of a bowl of pills to overdose stating, ?I?m going to the afterlife? and 911 was called. ?Sam Jj [phone] and Vashti Rodríguez ([facility] worker) [phone]. Patient will need to be assessed by CARE team.
--- NOTE | 2025-04-22 14:39 | ED.PSYCH ---
HPI - Psych General Chief Complaint: Psychiatric Symptoms Stated Complaint: SI threatened OD Time Seen by Provider: 04/22/25 14:34 Source: patient and EMS Mode of arrival: EMS Limitations: no limitations History of Present Illness ED Provider: DR. Liz HPI Narrative: 40-year-old female brought in by ambulance for evaluation of SI. Patient took a picture of a random medication at her house and send it to her friend stating should I overdose on this medication? Then friend call 911 and patient was transported to the ED by ambulance for further evaluation, patient stated that she is been going through stress in her life due to problems with her boyfriend, patient do feels stressed and depressed, patient declined any attempt to hurt herself at this point, no SI, no HI, no hallucination. Patient eyelid is declined any medical complaint, no ETOH use, no drug use. Related Data Home Medications ?Medication ?Instructions ?Recorded ?Confirmed albuterol sulfate 2.5 mg/3 mL 2.5 mg inhalation Q4-6H PRN 01/10/25 04/22/25 (0.083 %) solution for nebulization Shortness Of Breath ammonium lactate 12 % lotion 1 appl topical DAILY 04/22/25 04/22/25 bupropion HCl 150 mg 24 hr tablet, 150 mg PO DAILY 04/22/25 04/22/25 extended release clotrimazole-betamethasone 1 1 appl topical DAILY 04/22/25 04/22/25 %-0.05 % topical cream cyclobenzaprine 5 mg tablet 5 mg PO BEDTIME PRN Spasms 04/22/25 04/22/25 dextroamphetamine-amphetamine 20 1 tab PO DAILY@1200 04/22/25 04/22/25 mg tablet simvastatin 40 mg tablet 40 mg PO BEDTIME 04/22/25 04/22/25 tolterodine 4 mg capsule,extended 4 mg PO DAILY 04/22/25 04/22/25 release 24 hr lamotrigine 100 mg tablet 100 mg PO DAILY 04/23/25 04/23/25 Previous Rx's ?Medication ?Instructions ?Recorded albuterol sulfate 90 mcg/actuation 2 puff inhalation Q4H PRN 12/21/24 aerosol inhaler Shortness Of Breath Or Wheezing #1 inhaler cariprazine 6 mg capsule (Vraylar) 6 mg PO DAILY #30 caps 12/21/24 clonazepam 1 mg tablet 1 mg PO 0900,1300,2100 #90 tabs 12/21/24 clonidine HCl 0.1 mg tablet 0.1 mg PO 0900,1300,2100 #90 tabs 12/21/24 dextroamphetamine-amphetamine ER 30 mg (3 x 10 mg) PO DAILY@0600 12/21/24 10 mg 24hr capsule,extend release #30 caps (Adderall XR) escitalopram oxalate 20 mg tablet 20 mg PO DAILY #30 tabs 12/21/24 esomeprazole magnesium 40 mg 40 mg PO DAILY@0630 #30 caps 12/21/24 capsule,delayed release gabapentin 300 mg capsule 300 mg PO BID #60 caps 12/21/24 ibuprofen 800 mg tablet 800 mg PO TID #90 tabs 12/21/24 lamotrigine 150 mg tablet 150 mg PO BEDTIME #30 tabs 12/21/24 (Lamictal) lithium carbonate 300 mg capsule 300 mg PO BID #60 caps 12/21/24 lithium carbonate 300 mg tablet 150 mg (1/2 x 300 mg) PO BEDTIME 12/21/24 #30 tabs loratadine 10 mg tablet (Claritin) 10 mg PO DAILY #30 tabs 12/21/24 mirtazapine 45 mg tablet 22.5 mg (1/2 x 45 mg) PO BEDTIME 12/21/24 #15 tabs trazodone 50 mg tablet 50 mg PO BEDTIME PRN Sleep #30 tabs 12/21/24 mirabegron 50 mg tablet,extended 50 mg PO DAILY #30 tabs 01/14/25 release 24 hr (Myrbetriq) clobetasol 0.05 % topical cream 1 appl topical BID 2 weeks #45 04/14/25 grams Allergies Allergy/AdvReac Type Severity Reaction Status Date / Time No Known Allergies Allergy Verified 04/22/25 14:45 Review of Systems Review of Systems: All other systems are reviewed and are negative Constitutional: Reports as per HPI and Reports no additional constitutional complaints Eyes: Reports as per HPI and Reports no additional eye complaints Reports system reviewed and no additional complaints, except as documented Cardiovascular: Reports as per HPI and Reports no additional cardiovascular complaints Respiratory: Reports as per HPI and Reports no additional respiratory complaints Gastrointestinal: Reports as per HPI and Reports no additional gastrointestinal complaints Genitourinary: Reports no additional female genitourinary complaints Musculoskeletal: Reports no additional musculoskeletal complaints Skin/Breast: Reports system reviewed and no additional complaints, except as docu Psychiatric: Reports no additional psychiatric complaints Endocrine: Reports no additional endocrine complaints Hematologic/Lymphatic: Reports no additional hematologic/lymphatic complaints Allergic/Immunologic: Reports no additional allergic/immunologic complaints Reports system reviewed and no additional complaints, except as documented and Reports Abnormal speech present PMFSH Past Medical History Medical History Hereditary spherocytosis Borderline personality disorder Bipolar 2 disorder Posttraumatic stress disorder MDD (major depressive disorder), recurrent severe, without psychosis Pre-op evaluation Seasonal allergies Urinary frequency Incontinence HLD (hyperlipidemia) Clonidine overdose Polysubstance overdose Asthma Bronchitis Smoker Borderline personality disorder Bipolar disorder, unspecified B12 deficiency Anemia Migraines Cervical cancer COPD (chronic obstructive pulmonary disease) Depression Anxiety Surgical History History of esophagogastroduodenoscopy (EGD) History of bilateral tubal ligation History of total splenectomy Family History Family History Father No problems noted. Mother No problems noted. Social History Social History Household Members: Children and Other Housing: Apartment Do you presently have visiting nurse or other home services: No Unable to assess alcohol history related to: Unknown Alcohol intake: never Comment: 1:1 sitter Patient Tobacco Use Status: Former Tobacco user Tobacco use type: Cigarette Cigarette Packs Per Day: 1.5 Cigarettes Per Day: 30.0 Years Smoked: 15 Quit February 2023 Smoked in Last 30 Days: No e-Cigarette/Vaping Use: Former Use Second Hand Smoke Exposure: Yes Use of substances other than those prescribed or required for medical reasons: Yes Substance Use Type: Marijuana Substance Use Frequency: Chronic Longstanding Advance Directives: No Advance Directives Information Provided: No Do you have a plan to hurt others: No Plan Patient : No service: No Current occupational status: disabled 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 Sexual orientation: Straight/Heterosexual Physical Exam Vital Signs: Vital Signs: Last Vital Signs Temp 97.9 F 04/23/25 07:39 Pulse 68 04/23/25 07:39 Resp 14 04/23/25 07:39 BP 140/64 H 06/17/25 09:54 Pulse Ox 96 04/23/25 07:39 O2 Del Method Room Air 04/23/25 07:39 BMI result Body Mass Index 35.4 Vital signs have been reviewed and appear to be correct. Blood pressure elevated. Heart rate normal. Respiratory rate normal. Temperature normal. Oxygen saturation normal. Appearance: Alert. Oriented X3. No acute distress. Head: Normal external exam. Normocephalic. Atraumatic. No Liriano signs noted. No raccoon eyes noted Eyes: PERRLA. EOMI. Conjunctiva and sclera normal. Eyelids normal. ENT: TM's Normal. Pharynx normal. Uvula midline. Moist mucous membranes. No trismus noted. No drooling noted. No muffled voice noted. Neck: Normal inspection. Neck supple. FROM. No adenopathy. Thyroid Normal. No meningeal signs. No neck mass noted. CVS: Normal heart rate and rhythm. Heart sound normal. No murmurs noted. Pulses normal throughout. Respiratory: No respiratory distress. Painless inspiration. Breath sounds normal. No wheezes/rales/rhonchi noted. Chest nontender. No accessory muscle usage noted or decreased air movement noted. Abdomen: Soft and nontender. Bowel sounds normal in all 4 quadrants. No distention noted. No organomegaly noted. No visible injury noted. Back: No CVA tenderness. Full range of motion noted. Skin: Skin warm and dry. Normal skin color. Normal skin turgor. No rashes/lesions/lacerations noted. Extremities: No lower extremity edema. Extremities exhibit normal range of motion. Extremities nontender. Neuro: Oriented X 3. Cranial nerve exam: II-XII are grossly intact No motor deficit. No sensory deficit. Reflexes normal. Patient Orientation: Person, Place, Time and Situation, okay hygiene and grooming. Fair eye contact, attentive, no tics or tremors. Level of Consciousness: Awake, Appropriate and Alert Patient Behavior: Appropriate, Guarded, Cooperative and Anxious Mood Description: Constricted, Blunted and Apprehensive Affect Description: Constricted, Blunted and Apprehensive Patient Cognition Impaired: No Ability to Follow Directions: Excellent Speech Pattern: Clear, Appropriate and Spontaneous Speech, nonpressured, spontaneous with regular rate and rhythm, normal volume and prosody. No dysarthria. Memory Description: Intact, Immediate Intact and Short Term Intact Hallucinations: None Delusions: Not Present Thought Process: Intact Thought Content: positive for Intact, positive for Logical, denies Suicidal Ideation and denies Homicidal Ideation. Depressive Symptoms: Not present. Judgement and Insight: Limited but adequate. Course Reevaluation(s) Reevaluation #1: UTI will start the patient on Ceftin. Medically cleared, await for care team evaluation, start the patient physician observation now. Time: 16:48 Reevaluation #2: Patient is reported to be hypotensive, I went to re-evaluate the patient, she has no symptoms, she did not eat or drink anything, I am asking the nurses to keep it out of the blood pressure, make sure she is eating drinking, she did not overdose on any medications so this should not be any toxicologic affect this late after being in the ER, her care will be signed out to incoming provider. Time: 06:53 Reevaluation #3: Dr Wang 04/23/2025 8:12 AM patient has no new complaint. She has been medically cleared,blood pressure noted to be soft this morning he is currently 99/59 at 07:39 we will continue to observe Time: 08:13 Additional Reevaluation(s): The patient will be discharged to [facility] this is and the ED observation status 13:05 04/23/2025 Medications Administered Generic Name Dose Route Start Last Admin Trade Name Fernandoq PRN Reason Stop Dose Admin Amphetamine/Dextroamphetamine 30 mg 04/22/25 16:45 04/23/25 06:14 Dextroamphetamine/Amphetamine Xr 10 Mg Cap.Er.24h PO 30 mg DAILY@0600 JOSE Administration Betamethasone Dipropion Augmented 1 appl 04/23/25 09:00 04/23/25 10:07 Betamethasone Dip Aug 0.05% Cr 15 Gm Tube TOPICAL Not Given BID JOSE Bupropion HCl 150 mg 04/23/25 09:00 04/23/25 08:37 Bupropion Hcl Xl 150 Mg Tab.Er.24h PO 150 mg DAILY JOSE Administration Cariprazine 6 mg 04/22/25 16:45 04/23/25 08:37 Cariprazine Hcl 3 Mg Capsule PO 6 mg DAILY JOSE Administration Cefuroxime Axetil 250 mg 04/22/25 21:00 04/23/25 09:54 Cefuroxime Axetil 250 Mg Tablet PO 04/28/25 17:00 250 mg BID JOSE Administration Clonazepam 1 mg 04/22/25 21:00 04/23/25 12:35 Clonazepam 1 Mg Tablet PO 1 mg 0900,1300,2100 JOSE Administration Clonidine HCl 0.1 mg 04/22/25 21:00 04/23/25 12:35 Clonidine Hcl 0.1 Mg Tablet PO 0.1 mg 0900,1300,2100 JOSE Administration Protocol Escitalopram Oxalate 20 mg 04/22/25 17:00 04/23/25 08:38 Escitalopram Oxalate 20 Mg Tablet PO 20 mg DAILY JOSE Administration Gabapentin 300 mg 04/22/25 21:00 04/23/25 08:37 Gabapentin 300 Mg Capsule PO 300 mg BID JOSE Administration Ibuprofen 800 mg 04/22/25 17:00 04/23/25 08:37 Ibuprofen 800 Mg Tablet PO 800 mg TID JOSE Administration Lamotrigine 100 mg 04/23/25 10:00 04/23/25 11:25 Lamotrigine 100 Mg Tablet PO 100 mg DAILY JOSE Administration [place] Carbonate 300 mg 04/22/25 21:00 04/23/25 09:54 [place] Carbonate 300 Mg Capsule PO 300 mg BID JOSE Administration [place] Carbonate 150 mg 04/22/25 21:00 04/22/25 21:21 [place] Carbonate 300 Mg Tablet PO 150 mg BEDTIME JOSE Administration Loratadine 10 mg 04/22/25 17:00 04/23/25 08:37 Loratadine 10 Mg Tablet PO 10 mg DAILY JOSE Administration Mirabegron 50 mg 04/22/25 17:00 04/23/25 09:54 Mirabegron 50 Mg Tab.Er.24h PO 50 mg DAILY JOSE Administration Mirtazapine 22.5 mg 04/22/25 21:00 04/22/25 21:21 Mirtazapine 7.5 Mg Tablet PO 22.5 mg BEDTIME JOSE Administration Omeprazole 20 mg 04/23/25 06:30 04/23/25 06:14 Omeprazole 20 Mg Capsule.Dr PO 20 mg DAILY@0630 JOSE Administration Discontinued Medications Generic Name Dose Route Start Last Admin Trade Name Freq PRN Reason Stop Dose Admin Bupropion HCl 37.5 mg 04/22/25 16:45 04/22/25 18:06 Bupropion Hcl 75 Mg Tablet PO Not Given DAILY JOSE Lamotrigine 100 mg 04/22/25 17:00 04/22/25 18:08 Lamotrigine 100 Mg Tablet PO Not Given DAILY [facility] Non-Formulary Medication 40 mg 04/22/25 17:00 04/22/25 18:07 Esomeprazole Magnesium PO Not Given DAILY@0630 [facility] Medical Decision Making Differential Diagnosis Differential Diagnoses: The differential diagnosis associated with the presentation includes ( SI, HI, electrolyte derangement, severe anemia, medical clearance.) Admission/Observation Consideration of admission/observation: Escalation of care including admission/observation considered Lab Data MDM Lab Attestation statement: I reviewed the patient's lab results. 04/22/25 15:08 04/22/25 15:08 Labs: Lab Results 04/22/25 04/23/25 Range/Units 15:08 15:08 WBC 14.9 H (4.8-10.8) X10*3/uL RBC 4.95 (4.20-5.50) X10*6/uL Hgb 14.6 (12.0-16.0) g/dl Hct 43.7 (37.0-47.0) % MCV 88.3 (80.0-98.0) fL MCH 29.5 (27.0-33.0) pg MCHC 33.4 (31.0-35.0) g/dl RDW 15.3 (11.0-16.0) % Plt Count 563 H (160-400) X10*3/uL MPV 9.0 L (9.4-12.3) fL Immature Gran % (Auto) 0.4 (0.0-0.4) % Neut % (Auto) 59.1 (45-73) % Lymph % (Auto) 29.1 (20-40) % [place] % (Auto) 7.4 (2-11) % Eos % (Auto) 3.6 (0-4) % Baso % (Auto) 0.4 (0-2) % Lymph # (Auto) 4.3 (1.2-4.9) X10*3/uL [place] # (Auto) 1.1 (0.1-1.2) X10*3/uL Eos # (Auto) 0.5 H (0.0-0.4) X10*3/uL Baso # (Auto) 0.1 (0.0-0.2) X10*3/uL Abs Immat Gran (auto) 0.06 H (0.00-0.03) X10*3/uL Absolute Neuts (auto) 8.8 H (2.0-8.3) x10*3/uL Absolute Nucleated RBC 0.000 (0.0-0.012) X10*3/uL Nucleated RBC % (auto) 0.0 (0.0-0.2) /100WBC Sodium 136 (135-145) mmol/L Potassium 4.2 (3.3-5.1) mmol/L Chloride 104 (96-108) mmol/L Carbon Dioxide 24 (22-29) mmol/L Anion Gap 12 (12-20) BUN 9 (9-16) mg/dL Creatinine 0.93 (0.5-1.4) mg/dL Estim Creat Clear Calc 85.1 Estimated GFR > 60 Random Glucose 143 H (60-115) mg/dL Calcium 10.4 H D (8.4-10.2) mg/dL Total Bilirubin 0.3 (0.0-1.0) mg/dL Direct Bilirubin 0.1 (0.0-0.5) mg/dL AST 44 H (5-31) U/L ALT 53 H (0-31) U/L Alkaline Phosphatase 100 (39-117) U/L Total Protein 7.9 (6.5-8.0) g/dL Albumin 4.9 (3.5-5.0) g/dL Lipase 33 (8-78) U/L Urine Color Yellow Urine Appearance Cloudy Urine pH 6.5 (5.0-9.0) Ur Specific [place] 1.015 (1.005-1.025) Urine Protein 30 (1+) H (Neg-Trace) mg/dL Urine Glucose (UA) Negative (Negative) mg/dL Urine Ketones Trace (Negative) mg/dL Urine Blood Large (3+) H (Negative) Urine Nitrite Negative (Negative) Ur Leukocyte Esterase Moderate (2+) H (Negative) Urine RBC >20 H (0-2) /HPF Urine WBC 6-10 H (0-5) /HPF Ur Squamous Epith Cells 11-20 (0-2) /HPF Urine Bacteria 2+ (None Seen) Hyaline Casts 0-2 (0-2) /LPF Urine Test NEGATIVE (NEGATIVE) Salicylates < 5.0 L (15-30) mg/dL Urine Opiates Screen Not Detected (Not Detect) Ur Buprenorphine Scrn Not Detected (Not Detect) ng/mL Ur Oxycodone Screen Not Detected (Not Detect) ng/mL Urine Methadone Screen Not Detected (Not Detect) ng/mL Urine Fentanyl Screen Not Detected (Not Detect) Acetaminophen < 3 (<30) mcg/mL Ur Barbiturates Screen Not Detected (Not Detect) Ur Phencyclidine Scrn Not Detected (Not Detect) Ur Amphetamines Screen POSITIVE H (Not Detect) U Benzodiazepines Scrn POSITIVE H (Not Detect) Urine Cocaine Screen Not Detected (Not Detect) U Marijuana (THC) Screen POSITIVE H (Not Detect) Ethyl Alcohol < 10 mg/dL Discharge Plan Discharge Clinical Impression: Bipolar 2 disorder, Borderline personality disorder, UTI (urinary tract infection) Patient Disposition: Xfer [facility] Transfer Details: TO: [address], Prescriptions: No Action mirabegron [Myrbetriq] 50 mg tablet extended release 24 hr 50 mg PO DAILY Qty: 30 5RF clonidine HCl 0.1 mg Tablet 0.1 mg PO 0900,1300,2100 Qty: 90 0RF Protocol: Hold for SBP< HOLD for SBP < : 90 trazodone 50 mg Tablet 50 mg PO BEDTIME PRN (Reason: Sleep) Qty: 30 0RF ibuprofen 800 mg Tablet 800 mg PO TID Qty: 90 0RF clonazepam 1 mg Tablet 1 mg PO 0900,1300,2100 Qty: 90 0RF lithium carbonate 300 mg Capsule 300 mg PO BID Qty: 60 0RF gabapentin 300 mg Capsule 300 mg PO BID Qty: 60 0RF dextroamphetamine-amphetamine [Adderall XR] 10 mg Capsule,Extended Release 24hr 30 mg PO DAILY@0600 Qty: 30 0RF Rx Instructions: Partial Fill upon patient request. lithium carbonate 300 mg Tablet 150 mg PO BEDTIME Qty: 30 0RF escitalopram oxalate 20 mg Tablet 20 mg PO DAILY Qty: 30 0RF mirtazapine 45 mg tablet 22.5 mg PO BEDTIME Qty: 15 0RF lamotrigine [Lamictal] 150 mg tablet 150 mg PO BEDTIME Qty: 30 0RF Vraylar 6 mg capsule 6 mg PO DAILY Qty: 30 0RF esomeprazole magnesium 40 mg capsule,delayed release(DR/EC) 40 mg PO DAILY@0630 Qty: 30 0RF albuterol sulfate 90 mcg/actuation HFA aerosol inhaler 2 puff inhalation Q4H PRN (Reason: Shortness Of Breath Or Wheezing) Qty: 1 0RF loratadine [Claritin] 10 mg tablet 10 mg PO DAILY Qty: 30 0RF clobetasol 0.05 % cream 1 appl topical BID 14 Days Qty: 45 0RF ammonium lactate 12 % lotion 1 appl topical DAILY tolterodine 4 mg capsule,extended release 24hr 4 mg PO DAILY simvastatin 40 mg tablet 40 mg PO BEDTIME clotrimazole-betamethasone 1-0.05 % cream 1 appl topical DAILY cyclobenzaprine 5 mg tablet 5 mg PO BEDTIME PRN (Reason: Spasms) bupropion HCl 150 mg tablet extended release 24 hr 150 mg PO DAILY dextroamphetamine-amphetamine 20 mg tablet 1 tab PO DAILY@1200 lamotrigine 100 mg tablet 100 mg PO DAILY albuterol sulfate 2.5 mg /3 mL (0.083 %) solution for nebulization 2.5 mg inhalation Q4-6H PRN (Reason: Shortness Of Breath) Interventions: [place]-Suicide Risk Severity Scale Last Done: 04/22/25 14:54 Print Language: Kyrgyz
[2025-04-22 14:43] VITALS: BP 130/75; BP 134/77; PULSE 90; PULSE 95; RESP 18; TEMP 36.3; O2SAT 98; BMI 35.4
[2025-04-22 14:54] VITALS: BP 134/77; PULSE 90; RESP 18; TEMP 36.3; O2SAT 98
--- NOTE | 2025-04-22 15:00 | PC.NURSE ---
Patient A&O x 3. Takes pills whole. Independent with ambualtion. Section 12. Patient presents to ED after patient texted ICT HELP DESK TECHNICIAN a picture of a bowl of medications making remarks of consuming all the pills. Patient denies taking any medications at this time with intent of ODing. Patient has hx of attempting to OD on klonopin. Patient currently has SI with no plan, just feels overwhelmed with life stressors. Denies ETOH. Denies HI. Patient has been changed over and belongings are in locker #5. Patient was tearful/ verbally aggressive when entering the floor but was easily redirected. Patient currently sitting in her room. Blood collected/sent. VSS and up to date. Provider in to see patient. Plan of care on going
[2025-04-22 15:13] LABS: MANUAL DIFF FLAG NO
[2025-04-22 15:14] LABS: Basophils Absolute Auto 0.1 X10*3/uL (0.0-0.2); Basophils Percent Auto 0.4 % (0-2); Eosinophils Absolute Auto 0.5 X10*3/uL (0.0-0.4); Eosinophils Percent Auto 3.6 % (0-4); Hematocrit 43.7 % (37.0-47.0); Hemoglobin 14.6 g/dl (12.0-16.0); Imm Gran Abs Auto 0.06 X10*3/uL (0.00-0.03); Imm Gran Pct Auto 0.4 % (0.0-0.4); Lymphocytes Absolute Auto 4.3 X10*3/uL (1.2-4.9); Lymphocytes Percent Auto 29.1 % (20-40); Mean Corpuscular HGB Conc 33.4 g/dl (31.0-35.0); Mean Corpuscular Hemoglobin 29.5 pg (27.0-33.0); Mean Corpuscular Volume 88.3 fL (80.0-98.0); Monocytes Absolute Auto 1.1 X10*3/uL (0.1-1.2); Monocytes Percent Auto 7.4 % (2-11); Neutrophils Absolute Auto 8.8 x10*3/uL (2.0-8.3); Neutrophils Percent Auto 59.1 % (45-73); Platelet Count 563 X10*3/uL (160-400); Red Blood Count 4.95 X10*6/uL (4.20-5.50); Red Cell Distribution Width 15.3 % (11.0-16.0); White Blood Count 14.9 X10*3/uL (4.8-10.8)
[2025-04-22 15:15] LABS: Appearance Urine Cloudy; Color Urine Yellow; Glucose Urine UA Negative (Negative); Leukocyte Esterase Urine Moderate (2+) (Negative); Nitrite Urine Negative (Negative); PH 6.5 (5.0-9.0); Specific Gravity - Urine 1.015 (1.005-1.025); UMIC TRIGGER UACC YES; Urine Blood Large (3+) (Negative); Urine Ketones Trace mg/dL (Negative); Urine Protein 30 (1+) mg/dL (Neg-Trace)
[2025-04-22 15:20] LABS: Bacteria Urine 2+ (None Seen); Hyaline Casts Urine 0-2 /LPF (0-2); RBC Urine >20 /HPF (0-2); UACC Culture Trigger YES
[2025-04-22 15:31] LABS: Amphetamine Screen Urine POSITIVE (Not Detect); Barbiturates, Urine Not Detected (Not Detect); Benzodiazepines Screen Urine POSITIVE (Not Detect); Buprenorphine Scr Not Detected (Not Detect); Cannabinoid Screen Urine POSITIVE (Not Detect); Cocaine Screen Urine Not Detected (Not Detect); Fentanyl, urine Not Detected (Not Detect); Methadone Screen, Urine Not Detected (Not Detect); Opiate Screen Urine Not Detected (Not Detect); Oxycodone Screen Urine Not Detected (Not Detect); Phencyclidine Screen Urine Not Detected (Not Detect)
[2025-04-22 15:36] LABS: Alanine Aminotransferase 53 U/L (0-31); Albumin Level 4.9 g/dL (3.5-5.0); Alkaline Phosphatase 100 U/L (39-117); Anion Gap 12 (12-20); Aspartate Amino Transferase 44 U/L (5-31); Bilirubin Direct 0.1 mg/dL (0.0-0.5); Bilirubin Total 0.3 mg/dL (0.0-1.0); Blood Urea Nitrogen 9 mg/dL (9-16); Calcium 10.4 mg/dL (8.4-10.2); Carbon Dioxide 24 mmol/L (22-29); Chloride 104 mmol/L (96-108); Creatinine Clr Calc Pharmacy 85.1; Estimated Glomerular Filt Rate > 60; Ethanol < 10 mg/dL; Glucose Random 143 mg/dL (60-115); Lipase 33 U/L (8-78); Potassium 4.2 mmol/L (3.3-5.1); Sodium 136 mmol/L (135-145); Total Protein 7.9 g/dL (6.5-8.0)
[2025-04-22 16:26] LABS: Acetaminophen LAB < 3 mcg/mL (<30); Salicylate < 5.0 mg/dL (15-30)
--- OUTSIDE RECORDS SUMMARY | 2025-04-22 17:04 | XMS_ITS | Encounter Summary ---
Author Organization [employer] Address [address] [place] [address] Care Team Providers Care Plaster Whittler Name Role Phone Rhoda Pina MD Primary Care Provider [phone] Reason for Visit * Reason Onset Date Comments Hospital Follow-up 02/10/2024 Encounter Details Date Type Department Care Team ([facility] st Contact Info) Description 02/10/2024 Telephone [facility] [address] [place] [address] Rhoda Pina MD [address] [place], [place] [id number] Hospital Follow-up Social History Tobacco Use Types [...] * Telephone Encounter - Aneesh Liang - 02/10/2024 9:30 AM EDT Tc from pt requesting a HDF appt. Hospital: [facility] Date of admission: 02/04 Discharge date: 02/08 Diagnosed: Psych documented in this encounter Plan of Treatment Not on file documented as of this encounter Visit Diagnoses Not on filedocumented in this encounter Care Teams Plaster Whittler Relationship Specialty Start Date End Date Rhoda Pina MD [address] [place] [id number] PCP - General Family Medicine 10/19/12 documented as of this encounter
--- NOTE | 2025-04-22 19:16 | PC.NURSE ---
This scenario writer assumed care of this Pt at 1900.
--- NOTE | 2025-04-22 20:37 | PHA.MEDREC ---
Addendum entered by Darcy Celaya [facility] 04/23/25 09:58: Obtained list from [facility], everything matches claims. Patients lamictal is 150 mg QHS and 100 mg QD Addendum entered by Darcy Celaya [facility] 04/23/25 09:13: Attempted to call [facility] Worker @ [phone] but there was no answer, left voicemail to call us back. Original Note: Pharmacy Consult ? Medication Reconciliation Pharmacy has completed the medication reconciliation. Patient was not a good historian and most info was taken from recent pharmacy claims history. Attempt was made to contact patient [facility] worker to verify medication list, message left. We will try again to dairy worker in AM to see if doses can be confirmed.
[2025-04-22] MEDS: cefuroxime axetiL 250 MG TABLET PO (21:21)
[2025-04-22] MEDS: clonazePAM 1 MG TABLET PO (21:21)
[2025-04-22] MEDS: Mirtazapine 7.5 MG TABLET 22.5 MG PO (21:21)
[2025-04-22] MEDS: Lithium Carbonate 300 MG TABLET 150 MG PO (21:21)
[2025-04-22] MEDS: Gabapentin 300 MG CAPSULE PO (21:21)
[2025-04-22] MEDS: Ibuprofen 800 MG TABLET PO (21:22)
[2025-04-22] MEDS: Lithium Carbonate 300 MG CAPSULE PO (21:22)
[2025-04-22] MEDS: cloNIDine HCL 0.1 MG TABLET PO (21:22)
[2025-04-22 21:29] VITALS: BP 105/70; PULSE 72; RESP 17; TEMP 36.8; O2SAT 96
--- NOTE | 2025-04-22 21:31 | PC.NURSE ---
pt medicated per jan, tolerated whole well with water. vss. pt ointment placed in pt specific bin at this time in [facility]
[2025-04-23] VITALS (7 sets, daily range): BP systolic 84–140; BP diastolic 55–64; PULSE 64–75; RESP 14–17; TEMP 36.4–36.6; O2SAT 95–97
--- NOTE | 2025-04-23 | ECG_ITS ---
Test Reason : r/o porlonged qt Blood Pressure : */* mmHG Vent. Rate : 62 BPM Atrial Rate : 62 BPM P-R Int : 158 ms QRS Dur : 90 ms QT Int : 636 ms P-R-T Axes : 48 17 53 degrees QTcB Int : 645 ms Normal sinus rhythm Nonspecific T wave abnormality Prolonged QT Abnormal ECG When compared with ECG of 16-Dec-2024 21:40, Nonspecific T wave abnormality now evident in Lateral leads QT has lengthened Referred By: Tommy Dumas Electronically Signed By: Rob Sanchez
[2025-04-23] MEDS: Dextroamphetamine/Amphetamine XR 10 MG CAP.ER.24H 30 MG PO (06:14)
[2025-04-23] MEDS: Omeprazole 20 MG CAPSULE.DR PO (06:14)
--- NOTE | 2025-04-23 06:40 | PC.NURSE ---
provider and propellant charge loader aware of pt blood pressure at this time. no new orders at this time. pt offers no complaints, denies dizziness, sob and chest pain
--- NOTE | 2025-04-23 07:40 | PC.NURSE ---
Pt afebrile, ambulatory with steady, independent gait; denies urinary sx's at this time; current BP 99/59 MAP 82; pt eating/drinking without issue; calm/cooperative at this time
[2025-04-23 07:51] LABS: UPreg QC Valid YES; Urine Pregnancy NEGATIVE (NEGATIVE)
[2025-04-23] MEDS: clonazePAM 1 MG TABLET PO ×3 (08:37→19:50)
[2025-04-23] MEDS: buPROPion HCl XL 150 MG TAB.ER.24H PO (08:37)
[2025-04-23] MEDS: Gabapentin 300 MG CAPSULE PO ×2 (08:37→19:49)
[2025-04-23] MEDS: Loratadine 10 MG TABLET PO (08:37)
[2025-04-23] MEDS: Ibuprofen 800 MG TABLET PO ×2 (08:37→19:49)
[2025-04-23] MEDS: Cariprazine HCl 3 MG CAPSULE 6 MG PO (08:37)
[2025-04-23] MEDS: Escitalopram Oxalate 20 MG TABLET PO (08:38)
[2025-04-23] MEDS: cloNIDine HCL 0.1 MG TABLET PO ×3 (09:54→19:49)
[2025-04-23] MEDS: Mirabegron 50 MG TAB.ER.24H PO (09:54)
[2025-04-23] MEDS: cefuroxime axetiL 250 MG TABLET PO ×2 (09:54→19:49)
[2025-04-23] MEDS: Lithium Carbonate 300 MG CAPSULE PO ×2 (09:54→19:49)
--- NOTE | 2025-04-23 11:20 | PC.NURSE ---
Assumed care of this patient at 1100, patient resting quietly in BH5, intermittently walking out to phone calling support persons, tearful. Plan of care continues.
[2025-04-23] MEDS: lamoTRIgine 100 MG TABLET PO (11:25)
--- NOTE | 2025-04-23 11:49 | PC.NURSE ---
Pt informed by CARE TEAM she will be going to [facility], patient upset at this news, tearful in hallway. RN to RN report given to Maria C at [facility], all quesitons answered, pt to be transferred @ 1930 for 1999 admission to [facility].
--- NOTE | 2025-04-23 11:52 | MHC.CARE ---
Patient has been accepted to [facility] located at [address] [place] [id number] - ETA 8pm. Ambulance pickup time here at 730PM. The accepting provider is Dr. Gabriel Mccarty.
--- NOTE | 2025-04-23 14:43 | PC.NURSE ---
Pt. requesting noon dose of adderrall included on med rec, provider made aware, awaiting orders.
[2025-04-23] MEDS: Amphetamine Mixed Salts 20 MG TABLET PO (14:55)
[2025-04-23] MEDS: lamoTRIgine 25 MG TABLET 150 MG PO (19:49)
== END 2025-04-23 20:00 ==
PROVIDERS: Emergency Medicine; Emergency Provider Emergency Medicine
DX: F31.81 Bipolar II disorder (principal); F60.3 Borderline personality disorder; N39.0 Urinary tract infection, site not specified; F43.10 Post-traumatic stress disorder, unspecified; E78.5 Hyperlipidemia, unspecified; Z79.899 Other long term (current) drug therapy
CPT/HCPCS: 36415; 80048; 80076; 80143; 80179; 80307; 81001; 81025; 83690; 85025; 87086; 93005; 99285; S9485

== ENCOUNTER → 2025-04-23 07:47 | Outpatient (BNV) | payer MEDICARE, MEDICAID, SELFPAY | PROVIDERS: Emergency Provider Emergency Medicine; Visit Provider Internal Medicine Cardiovascular Disease | DX: R94.31 Abnormal electrocardiogram [ECG] [EKG] (principal) | CPT/HCPCS: 93010 ==

== ENCOUNTER 2025-05-16 07:53 | Outpatient (AMB) | payer MEDICARE, MEDICAID, SELFPAY ==
--- NOTE | 2025-05-16 07:56 | MHC.OFFVIS ---
Intake Visit Reasons: 6m/ PVR Intake Note: Patient presents today for follow up on: incontinence, frequency, and uti Urology Medications: myrbetriq, tolterodine Blood Thinner: none PVR: 7ml's Managing Manager Required: No Accompanied by: Self / Same As Patient Allergies No Known Allergies Allergy (Verified 05/16/25 08:43) Medication List - Last Reconciled 05/16/25 by LOBO Mckay- albuterol sulfate 90 mcg/actuation 2 puffs inhalation Q4H PRN albuterol sulfate 2.5 mg inhalation Q4-6H PRN ammonium lactate 12% 1 appl topical DAILY bupropion HCl XL 150 mg PO DAILY cariprazine (Vraylar) 6 mg PO DAILY clobetasol 0.05% 1 appl topical BID 2 weeks clonazepam 1 mg PO 0900,1300,2100 clonidine HCl 0.1 mg See Protocol PO 0900,1300,2100 clotrimazole-betamethasone 1-0.05 % 1 appl topical DAILY cyclobenzaprine 5 mg PO BEDTIME PRN dextroamphetamine-amphetamine 10 mg ER (Adderall XR) 30 mg (3 x 10 mg) PO DAILY@0600 dextroamphetamine-amphetamine 20 mg 1 tab PO DAILY@1200 escitalopram oxalate 20 mg PO DAILY esomeprazole magnesium 40 mg PO DAILY@0630 gabapentin 300 mg PO BID lamotrigine (Lamictal) 150 mg PO BEDTIME lamotrigine 100 mg PO DAILY lithium carbonate 300 mg PO BID lithium carbonate 150 mg (1/2 x 300 mg) PO BEDTIME loratadine (Claritin) 10 mg PO DAILY mirabegron ER (Myrbetriq) 50 mg PO DAILY mirtazapine 22.5 mg (1/2 x 45 mg) PO BEDTIME tolterodine ER 4 mg PO DAILY 30 days HPI Comments Details: Tammy is a pleasant 40 year old female who is a patient of Dr. Pina. She has a PMH of anxiety, depression, PTSD, bipolar, GERD, headaches, and insomnia. She presents to the office today for follow-up of her overactive bladder and recurrent urinary tract infections. In discussion with the patient today she reports to be doing and feeling well. She denies having had any bothersome urinary issues or concerns since her last office visit here. She discusses having missed her last follow-up as she was incarcerated. She is requesting refills on her urological medications. In office urinalysis results reviewed with the patient today. PVR 7 mL. She denies hematuria, dysuria, foul smelling urine, changes to urinary stream, flank pain, fever, and or chills. She denies any UTI like symptoms. Previous workup has included a retroperitoneal ultrasound 01/27 noting a few scattered echogenic foci in both kidneys. No echogenic stones or hydronephrosis. Small post void residual bladder volume. Normal bilateral ureteral jets seen. She otherwise denies any other issues or concerns at this time. [facility] Medical History Hereditary spherocytosis Borderline personality disorder Bipolar 2 disorder Posttraumatic stress disorder MDD (major depressive disorder), recurrent severe, without psychosis Pre-op evaluation Seasonal allergies Urinary frequency Incontinence HLD (hyperlipidemia) Clonidine overdose Polysubstance overdose Asthma Bronchitis Smoker Borderline personality disorder Bipolar disorder, unspecified B12 deficiency Anemia Migraines Cervical cancer COPD (chronic obstructive pulmonary disease) Depression Anxiety Surgical History History of esophagogastroduodenoscopy (EGD) History of bilateral tubal ligation History of total splenectomy Family History Father No problems noted. Mother No problems noted. Social History Household Members: Children and Other Housing: Apartment Do you presently have visiting nurse or other home services: No Unable to assess alcohol history related to: Unknown Alcohol intake: never Comment: 1:1 sitter Patient Tobacco Use Status: Former Tobacco user Tobacco use type: Cigarette Cigarette Packs Per Day: 1.5 Cigarettes Per Day: 30.0 Years Smoked: 15 Quit February 2023 e-Cigarette/Vaping Use: Former Use Second Hand Smoke Exposure: Yes Substance Use Type: Marijuana service: No Current occupational status: disabled 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 Sexual orientation: Straight/Heterosexual Review of Systems Const Reports as per HPI Eyes Reports no additional complaints ENT Reports no additional complaints Card Reports no additional complaints Resp Reports no additional complaints GI Reports no additional complaints Reports as per HPI Musc Details: Reports as per HPI Psych Reports as per HPI Physical Exam Const General: cooperative, healthy appearing, comfortable, no acute distress, well developed, alert and awake Nutritional Appearance: overweight Orientation/consciousness: patient oriented x3 Limitations: no limitations HEENT Head: Yes normal to inspection Ears: hearing grossly normal bilaterally Eyes General: appearance normal, both eyes and all related structures Neck Neck: Yes normal visual inspection and Yes trachea midline Chest Chest palpation & inspection: normal inspection of the chest Cardio Rate: regular rate GI Inspection: Yes normal to inspection General: Yes no CVA tenderness Back/Spine/Pelvis Back: no CVA tenderness Neuro General: patient oriented x3 Extrem General: Yes normal to inspection Psych Mental Status: mental status grossly normal Speech and movement: Normal speech and movement present and Clear speech present Affect: Other affect and mood findings present (flat affect ) Attitude: cooperative Insight: Fair insight present (Psych) Judgement: Fair judgement present (Psych) Office Procedures Post Void Residual Post Residual Void Post Void Residual (PVR): 7 [id number] Void Residual by ultrasound Results AMB Urinalysis, Automated UA Leukoctes 125 Rosalino/uL Last Edit by Messi Leos [facility] on 05/16/25 08:25 UA Nitrite Last Edit by Messi Leos [facility] on 05/16/25 08:25 UA Urobilinogen 1 mg/dL Last Edit by Messi Leos [facility] on 05/16/25 08:25 UA Protein 30 mg/dL Last Edit by Messi Leos [facility] on 05/16/25 08:25 UA pH 6.0 Last Edit by Messi Leos [facility] on 05/16/25 08:25 UA Blood 0 Guillermo/uL Last Edit by Messi Leos [facility] on 05/16/25 08:25 UA Specific Delmont 1.020 Last Edit by Messi Leos [facility] on 05/16/25 08:25 UA Ketone Last Edit by Messi Leos [facility] on 05/16/25 08:25 UA Bilirubin 1 mg/dL Last Edit by Messi Leos [facility] on 05/16/25 08:25 UA Glucose 0 mg/dL Last Edit by Messi Leos [facility] on 05/16/25 08:25 Results Reviewed Results Reviewed: Laboratory Last Values Urine pH (Auto) 6.0 05/16/25 08:24 Specific [place]mont (Auto) 1.020 05/16/25 08:24 Urine Protein (Auto) 30 mg/dL 05/16/25 08:24 Glucose (UA)(Auto) 0 mg/dL 05/16/25 08:24 Urine Blood (Auto) 0 Guillermo/uL 05/16/25 08:24 Urine Bilirubin (Auto) 1 mg/dL 05/16/25 08:24 Urine Urobilinogen (Auto) 1 mg/dL 05/16/25 08:24 Leukocyte Esterase (Auto) 125 Rosalino/uL 05/16/25 08:24 Assessment & Plan Assessment & Plan (1) Incontinence: Code(s): R32 - Unspecified urinary incontinence Category: Medical (2) Urinary frequency: Code(s): R35.0 - Frequency of micturition Category: Medical Plan In office urinalysis results with the patient today; as noted above. PVR 7 mL. She currently denies any bothersome urinary issues or concerns. She reports be happy with current voiding parameters. Will continue with surveillance monitoring. Continue urological medications as prescribed; refills provided. All questions were answered. Follow-up in 6 months with PVR; or sooner with any issues, concerns, and or questions. Orders: Orders AMB Urinalysis Automated Today Z13.9 - Encounter for screening, unspecified AMB Post Void Residual by ultrasound Today N39.0 - Urinary tract infection, site not specified Medications: Changed From mirabegron ER (Myrbetriq) 50 mg PO DAILY 30 tabs 3RF To mirabegron ER (Myrbetriq) 50 mg PO DAILY 90 tabs 3RF 90 days From tolterodine ER 4 mg PO DAILY 30 days 30 caps 3RF To tolterodine ER 4 mg PO DAILY 90 caps 3RF 90 days Patient Instructions: The patient had an opportunity to ask questions regarding the treatment plan. All questions were answered. Physical exam, labs, and imaging were discussed and reviewed in detail. As well as risks, benefits, and discussion of treatment choices. No major barriers to understanding were identified. The patient expressed understanding and agreement with the above treatment plan. The patient was made aware they should contact our office by phone for worsening of their current condition, the appearance of new symptoms, or with any questions or concerns. Compliance is encouraged with any medications and follow up testing that is ordered. It is a privilege to be allowed the opportunity to participate in? your urological care.? Again, if you have any questions or concerns If you have any questions or concerns please do not hesitate to contact me. The office is [phone]. This note is constructed using voice recognition software. While every effort has been made to ensure accuracy gas operator errors may have been included. Yours sincerely, LOBO Mckay-MAXIMILIANO Coding Level of Care Code Est Pt Level 3 (97455) Complex EM visit Add On G2211 Diagnoses Incontinence R32 Urinary frequency R35.0 CPT Codes Post Residual Void - PVR CPT Code: 66311-Lcdp Void Residual by ultrasound ([id number])
--- OUTSIDE RECORDS SUMMARY | 2025-05-16 07:56 | XMS_ITS | Clinical Summary ---
Author Organization [facility], Address [address] [place] [address] [place] [address] Phone Care Team Providers Care Volcanologist Name Role Phone Rhoda Pina MD Primary Care Provider [phone] Allergies No known active allergies Medications acetaminophen [...] Health Maintenance Due Date Last Done Comments Hepatitis B Vaccine (1 of 3 - 19+ 3-dose series) 02/15 Pneumococcal Vaccine: Peds ( 0 to 5 Years) and At-Risk Patients (6 to 49 Years) (1 of 2 - PCV) 02/15/2003 Influenza Vaccine (#1) 2025 Insurance Medicare Medicaid [place] Care Teams Volcanologist Relationship Specialty Start Date End Date Rhoda Pina MD [address] [place] [id number] PCP - General Family Medicine 02/21/20
--- OUTSIDE RECORDS SUMMARY | 2025-05-16 07:56 | XMS_ITS | Encounter Summary ---
Author Organization [facility] Address [address] [place] [address] Care Team Providers Care Reporter Anchor Name Role Phone Rhoda Pina MD Primary Care Provider [phone] Encounter Details Date Type Department Care Team (Late st Contact Info) Description 04/30/2025 Lab Requisition [facility] - Main Lab [address] [facility] [place] [address] Social History Tobacco Use Types Packs/Day Years Used Date Smoking Tobacco: Never Assessed Comments Unknown Sex and Gender Information Value Date Recorded Sex Assigned at Not on file Legal Sex Female 1:29 PM EST Gender Identity Not on file Sexual Orientation Not on file documented as of this encounter Plan of Treatment Upcoming Encounters Date Type Department Care Team (Late st Contact Info) Description 05/28/2025 2:00 PM EDT Office Visit Orth[facility] [place] [address] [id number] [place], DPM [address] [address] documented as of this encounter Visit Diagnoses Not on filedocumented in this encounter Care Teams Reporter Anchor Relationship Specialty Start Date End Date Rhoda Pina MD [address] [place] [address] PCP - General Family Medicine 02/07/25 documented as of this encounter
--- OUTSIDE RECORDS SUMMARY | 2025-05-16 07:56 | XMS_ITS | Encounter Summary ---
Author Organization [employer] Address [address] [facility] [address] [address] 7t [place] [address] Care Team Providers Care Research Computing Specialist Name Role Phone Rhoda Pina MD Primary Care Provider [phone] Reason for Visit * Reason Onset Date Comments Hospital Follow-up 02/10/2024 Encounter Details Date Type Department Care Team ([facility] st Contact Info) Description 02/10/2024 Telephone [facility] MEDICINE [address] [place] [address] Rhoda Pina MD [address] [place], [place] [id number] Hospital Follow-up Social History Tobacco Use Types [...] from pt requesting a HDF appt. Hospital: [facility] Date of admission: 02/04 Discharge date: 02/08 Diagnosed: Psych documented in this encounter Plan of Treatment Not on file documented as of this encounter Visit Diagnoses Not on filedocumented in this encounter Care Teams Research Computing Specialist Relationship Specialty Start Date End Date Rhoda Pina MD [address] [place] [address] PCP - General Family Medicine 10/19/12 documented as of this encounter
== END 2025-05-16 08:40 | disposition home or self-care (01) ==
LOC: HO.HUSH 07:54
PROVIDERS: Visit Provider Nurse Practitioner Family
DX: R32 Unspecified urinary incontinence (principal); R35.0 Frequency of micturition; Z13.9 Encounter for screening, unspecified
CPT/HCPCS: 99213; G2211

== ENCOUNTER → 2025-05-16 07:53 | Outpatient (BNVA) | payer MEDICARE, MEDICAID, SELFPAY | PROVIDERS: Visit Provider Nurse Practitioner Family | DX: R35.0 Frequency of micturition (principal); R32 Unspecified urinary incontinence; Z79.899 Other long term (current) drug therapy | CPT/HCPCS: 51798; 81003; 99212 ==

== ENCOUNTER 2025-07-25 06:34 | Outpatient (REF) | payer MEDICARE, MEDICAID, SELFPAY ==
--- NOTE | ~2025-07-25 | CT_ITS ---
EXAMINATION: CT ABDOMEN PELVIS WITH IV CONTRAST HISTORY: CONSTIPATION X 4 WEEKS, NO STOOL IN RECTUM, LLQ PAIN COMPARISON: There are no prior studies for available comparison. TECHNIQUE: CT scan of the abdomen and pelvis was performed following administration of 85 mL Omnipaque 350 using standard departmental protocol. Coronal and sagittal reformatted images were generated and reviewed. The patient received oral contrast material. This CT exam was performed with one or more of the following dose reduction techniques: automated exposure control, adjustment of the mA and/or kV according to patient size, use of iterative reconstruction technique. DLP: 597 mGy-cm FINDINGS: LOWER CHEST: The visualized lung bases are clear. There is no pleural effusion. CARDIOVASCULATURE: The heart is normal in size. There is no pericardial effusion. LIVER: The liver is normal in size and contour, but demonstrates diffusely decreased attenuation, consistent with steatosis. There is focal fatty sparing adjacent to the gallbladder.. No liver mass is identified. The hepatic and portal veins are patent. GALLBLADDER / BILE DUCTS: The gallbladder is unremarkable. There is no intra or extrahepatic biliary ductal dilatation. SPLEEN: The spleen is surgically absent. PANCREAS: The pancreas is unremarkable in appearance. ADRENAL GLANDS: Within normal limits. KIDNEYS/RETROPERITONEUM: No renal calculi are identified. There is no hydronephrosis. No renal masses are identified. LYMPH NODES: No abdominal or pelvic lymphadenopathy. VASCULATURE: The abdominal aorta is normal in caliber. MESENTERY/PERITONEUM: No free fluid. No masses. There is no free intraperitoneal gas. STOMACH: There is a moderate hiatal hernia. Postsurgical changes are noted at the GE junction. SMALL BOWEL: The small bowel is normal in caliber. COLON: There is a very large amount of stool in the ascending and transverse colon. The descending and sigmoid colon are collapsed. No obvious mass is seen. APPENDIX: Normal. URINARY BLADDER/PELVIC ORGANS: The urinary bladder is unremarkable. The uterus and ovaries are unremarkable. BONES / SOFT TISSUES: No suspicious bony or soft tissue abnormalities. CT/CT abdomen pelvis w IV con IMPRESSION: 1. Very large amount of stool in the ascending and transverse colon with collapse of the descending and sigmoid colon. No obvious mass is seen. Colonoscopy is suggested if this has not recently been performed. 2. Hepatic steatosis. 3. Moderate hiatal hernia. Electronically signed by: Karan Ridley MD 07/25/2025 09:43 AM EDT
--- OUTSIDE RECORDS SUMMARY | 2025-07-25 06:39 | XMS_ITS | Encounter Summary ---
Author Organization [employer] Address [address] [facility] 7t [place] [address] Care Team Providers Care Golf Ball Marker Name Role Phone Rhoda Pina MD Primary Care Provider Estrellita Piper CNP Primary Care Provider [phone] Reason for Visit * Reason Comments Med Refill Encounter Details Date Type Department Care Team ([facility] Contact Info) Description 09/26/2024 Refill [facility] CHC MED & PEDS [address] [place] [address] Rhoda Pina MD 505 [place] [address] Acute back pain, unspecified back location, unspecified [...] Care Team (Late st Contact Info) Description 08/09/2025 1:00 PM EDT Office Visit [facility] MED & PEDS [address] [place], [place] [phone] Estrellita Piper CNP 505 [place] [address] documented as of this encounter Visit Diagnoses Diagnosis Acute back pain, unspecified back location, unspecified back pain laterality documented in this encounter Additional Health Concerns Assessment Noted Time PHQ-9 Depression Total Score: 18 024 9:52 AM EDT documented as of this encounter Care Teams Golf Ball Marker Relationship Specialty Start Date End Date Rhoda Pina MD [address] [place] [address] PCP - General Family Medicine 10/19/12 06/12/25 Estrellita Piper CNP [address] [place] [address] PCP - General Family Medicine 06/13/25 documented as of this encounter
--- OUTSIDE RECORDS SUMMARY | 2025-07-25 06:39 | XMS_ITS | Encounter Summary ---
Author Organization [facility] Address [address] [place] [address] Care Team Providers Care Photonic Laboratory Technician Name Role Phone Rhoda Pina MD Primary Care Provider [phone] Encounter Details Date Type Department Care Team (Late st Contact Info) Description 04/26/2025 Lab Requisition [facility] - Main Lab [address] [place] [address] Eli Quiroga, [address] [address] Other intermediate (current) drug therapy Social History Tobacco Use Types Packs/Day Years Used Date Smoking Tobacco: Never Assessed Comments Unknown Sex and Gender Information Value Date Recorded Sex Assigned at Not on file Legal Sex Female 1:29 PM EST Gender Identity Not on file Sexual Orientation Not on file documented as of this encounter Plan of Treatment Not on file documented as of this encounter Procedures Procedure Name Priority Date/Time Associated Diagnosis Comments MAGNESIUM Routine 04/26/2025 7:00 AM EDT Other intermediate (current) drug therapy documented in this encounter Results * (ABNORMAL) Magnesium (04/26/2025 7:00 AM EDT) Magnesium 2.7(H) 1.9 - 2.6 mg/dL LAB CHEMISTRY METHOD 04/26/2025 8:13 PM EDT [facility] Comment:Hemolysis present Blood Venous blood specimen / Unknown Venipuncture / Unknown 04/26/2025 7:00 AM EDT 04/26/2025 11:07 AM EDT us Eli Quiroga ANTHROPOLOGY DEPARTMENT CHAIR LAB BLOOD ORDERABLES Final Result [facility] [address] [place] [address], documented in this encounter Visit Diagnoses Diagnosis 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
--- OUTSIDE RECORDS SUMMARY | 2025-07-25 06:39 | XMS_ITS | Encounter Summary ---
Author Organization [employer] Address [address] [place] [address] 7t [place] [address] Care Team Providers Care Welder Metal Fab Name Role Phone Rhoda Pina MD Primary Care Provider Estrellita Piper CNP Primary Care Provider [phone] Reason for Visit * Reason Onset Date Comments Results 11/08/2023 Encounter Details Date Type Department Care Team ([facility] Contact Info) Description 11/08/[address] [facility] CHC MED & PEDS [address] [place], [place] [phone] Rhoda Pina MD [address] [place] [address] Results Social History Tobacco Use Types Packs/Day [...] be faxed. Labs printed and faxed to [phone]. Once results are received she will review [...] in messages prior. Please contact pt at [phone]. * Telephone Encounter - Eliza Fox RN - 11/08/2023 11:11 AM EST Please review message below and advise on lab results and next steps. * Telephone Encounter - Cari Reid - 11/08/2023 10:20 AM EST Tc from pt requesting a call back from a nurse to speak about some blood work results just receivedon portal. Please contact pt @ [phone] documented in this encounter Plan of Treatment Upcoming Encounters Date Type Department Care Team ([facility] st Contact Info) Description 08/09/2025 1:00 PM EDT Office Visit [facility] MED & PEDS [address] [place] [address] Estrellita Piper, GABY [address] [place] [address] documented as of this encounter Visit Diagnoses Not on filedocumented in this encounter Care Teams Welder Metal Fab Relationship Specialty Start Date End Date Rhoda Pina MD [address] [place] [address] PCP - General Family Medicine 10/19/12 06/12/25 Estrellita Piper CNP [address] [place] [address] PCP - General Family Medicine 06/13/25 documented as of this encounter
--- OUTSIDE RECORDS SUMMARY | 2025-07-25 06:39 | XMS_ITS | Encounter Summary ---
Author Organization [employer] Address [address] [place] [address] Care Team Providers Care Clinical Quality Assurance Associate Name Role Phone Rhoda Pina MD Primary Care Provider [phone] Estrellita Piper CNP Primary Care Provider [phone] Reason for Visit * Reason Onset Date Comments New Med Request 01/22/2025 Encounter Details Date Type Department Care Team ([facility] st Contact Info) Description 01/22/[address] [facility] MEDICINE [address] [place] [address] Rhoda Pina MD [address] [place] [address] New Med Request Social History Tobacco Use Types Packs/Day Years Used Date Smoking Tobacco: Former Cigarettes Q uit: 05/11/2023 Passive Smoke Exposure: Never Smokeless Tobacco: Never Depression Answer Date Recorded Patient Health Questionnaire-9 Score 23 01/18/2025 Patient Health Questionnaire-9 Score 23 01/18/2025 Last PHQ-9: Questionnaire Data Not on file 0 01/18/2025 Housing Stability Answer Date Recorded What is [...] Answer Date Recorded Patient Health Questionnaire-2 Score 6 01/18/2025 Comments No Sex and Gender Information Value Date Recorded Sex Assigned at Female 09/06/2022 10:17 AM EDT Legal Sex Female 10:17 AM EDT Gender Identity Female 09/06/2022 10:17 AM EDT Sexual Orientation Straight 09/06/2022 10 :17 AM EDT documented as of this encounter Miscellaneous Notes * Telephone Encounter - Maren Cardozo RN - 01/23/2025 9:44 AM EDT TC to pt. Pt stated that during previous visit with PCP they had discussed a cream for her eczema. Pt placed on hold as author asked provider. Provider stated will send script to pt pharmacy for triamcinolone. Pt given information and advised that provider will work on script to be sent to pharmacy. Pt verbalized understanding and agreement with outcome. * Telephone Encounter - Korin Tirado - 01/22/2025 4:09 PM EDT Tc from pt requesting medication Triamcinolone to be sent to pharmacy documented in this encounter Plan of Treatment Upcoming Encounters Date Type Department Care Team (Late st Contact Info) Description 08/09/2025 1:00 PM EDT Office Visit [facility] CHC MED & PEDS [address] [place] [address] Estrellita Piper CNP [address] [place] [address] documented as of this encounter Visit Diagnoses Not on filedocumented in this encounter Additional Health Concerns Assessment Noted Time PHQ-9 Depression Total Score: 23 025 9:51 AM EDT documented as of this encounter Care Teams Clinical Quality Assurance Associate Relationship Specialty Start Date End Date Rhoda Pina MD [address] [place] [address] PCP - General Family Medicine 10/19/12 06/12/25 Estrellita Piper CNP [address] [place] [address] PCP - General Family Medicine 06/13/25 documented as of this encounter
--- OUTSIDE RECORDS SUMMARY | 2025-07-25 06:39 | XMS_ITS | Encounter Summary ---
Author Organization [employer] Address [address] [facility] 7t [place] [address] Care Team Providers Care Hand Gluer And Slicer Name Role Phone Rhoda Pina MD Primary Care Provider [phone] Estrellita Piper CNP Primary Care Provider [phone] Reason for Visit * Reason Onset Date Comments Hospital Follow-up 12/12/2023 Encounter Details Date Type Department Care Team ([facility] Contact Info) Description 12/12/2023 Telephone [facility] CHC MED & PEDS [address] [place] [address] Rhoda Pina MD [address] [place] [address] Hospital Follow-up Social History Tobacco Use Types [...] * Telephone Encounter - Ginger Roldan - 12/12/2023 10:39 AM EST Tc from pt requesting a HDF appt. [facility] Date of admission: 12/02 Discharge date: 12/07 Diagnosed: Bipolar disorder Please contact pt at [phone] documented in this encounter Plan of Treatment Upcoming Encounters Date Type Department Care Team (Late st Contact Info) Description 08/09/2025 1:00 PM EDT Office Visit [facility] MED & PEDS [address] [place], [place] [phone] Estrellita Piper CNP [address] [place] [address] documented as of this encounter Visit Diagnoses Not on filedocumented in this encounter Care Teams Hand Gluer And Slicer Relationship Specialty Start Date End Date Rhoda Pina MD [address] [place] [address] PCP - General Family Medicine 10/19/12 06/12/25 Estrellita Piper CNP [address] [place] [address] PCP - General Family Medicine 06/13/25 documented as of this encounter
--- OUTSIDE RECORDS SUMMARY | 2025-07-25 06:39 | XMS_ITS | Clinical Summary ---
Author Organization [facility], Address [address] [place] [address] [place] [address] Phone Care Team Providers Care Aniline Press Worker Name Role Phone Rhoda Pina MD Primary Care Provider [phone] Allergies No known active allergies Medications acetaminophen [...] 2025 Insurance Medicare Medicaid [place] Care Teams Aniline Press Worker Relationship Specialty Start Date End Date Rhoda Pina MD [address] [place] [address] PCP - General Family Medicine 02/21/20
--- OUTSIDE RECORDS SUMMARY | 2025-07-25 06:39 | XMS_ITS | Encounter Summary ---
Author Organization [employer] Address [address] [facility] [address] 7[address] [place] [address] Care Team Providers Care Online Project Manager Name Role Phone Rhoda Pina MD Primary Care Provider [phone] Estrellita Piper CNP Primary Care Provider [phone] Reason for Visit * Reason Onset Date Comments Hospital Follow-up 02/10/2024 Encounter Details Date Type Department Care Team ([facility] Contact Info) Description 02/10/2024 Telephone [facility] MEDICINE [address] [place] [address] Rhoda Pina MD [address] [place], [place] [phone] Hospital Follow-up Social History Tobacco Use Types [...] from pt requesting a HDF appt. Hospital: [facility] Date of admission: 02/04 Discharge date: 02/08 Diagnosed: Psych documented in this encounter Plan of Treatment Upcoming Encounters Date Type Department Care Team (Late st Contact Info) Description 08/09/2025 1:00 PM EDT Office Visit [facility] MED & PEDS [address] [place] [address] Estrellita Piper CNP [address] [place] [address] documented as of this encounter Visit Diagnoses Not on filedocumented in this encounter Care Teams Online Project Manager Relationship Specialty Start Date End Date Rhoda Pina MD [address] [place] [address] PCP - General Family Medicine 10/19/12 06/12/25 Estrellita Piper CNP [address] [place] [address] PCP - General Family Medicine 06/13/25 documented as of this encounter
--- OUTSIDE RECORDS SUMMARY | 2025-07-25 06:39 | XMS_ITS | Encounter Summary ---
Author Organization [employer] Address [address] [place] [address] Care Team Providers Care Cold Rolling Supervisor Name Role Phone Rhoda Pina MD Primary Care Provider [phone] Estrellita Piper CNP Primary Care Provider [phone] Reason for Visit * Reason Onset Date Comments FYI 12/18/2024 Encounter Details Date Type Department Care Team ([facility] st Contact Info) Description 12/18/2024 Telephone [facility] [address] [place] [address] Rhoda Pina MD [address] [place] [address] Social History Tobacco Use Types Packs/Day Years [...] 08/09/2025 1:00 PM EDT Office Visit [facility] [address] [place] [address] Estrellita Piper CNP [address] [place] [address] documented as of this encounter Visit Diagnoses Not on filedocumented in this encounter Additional Health Concerns Assessment Noted Time PHQ-9 Depression Total Score: 18 024 9:52 AM EDT documented as of this encounter Care Teams Cold Rolling Supervisor Relationship Specialty Start Date End Date Rhoda Pina MD [address] [place] [address] PCP - General Family Medicine 10/19/12 06/12/25 Estrellita Piper CNP [address] [place] [address] PCP - General Family Medicine 06/13/25 documented as of this encounter
--- OUTSIDE RECORDS SUMMARY | 2025-07-25 06:39 | XMS_ITS | Encounter Summary ---
Author Organization [facility] Address [address] [place] [address] Care Team Providers Care Wallcovering Hanger Name Role Phone Rhoda Pina MD Primary Care Provider [phone] Encounter Details Date Type Department Care Team (Late st Contact Info) Description 04/30/2025 Lab Requisition [facility] Lab [address] [facility] [employer] [place] [address] Darby Solitario Other chcf (current) drug therapy Social History Tobacco Use [...] Procedure Name Priority Date/Time Associated Diagnosis Comments LITHIUM LEVEL Routine 04/30/2025 7:00 AM EDT Other rn long term care (current) drug therapy documented in this encounter Results * [place] level (04/30/2025 7:00 AM EDT) [place] Level 0.6 0.6 - 1.2 mEq/L LAB CHEMISTRY METHOD 04/30/2025 12:[address] [facility] Blood Venous blood specimen / Unknown Venipuncture / Unknown 04/30/2025 7:00 AM EDT 04/30/2025 9:40 AM EDT us Darby Solitario LAB BLOOD ORDERABLES Final Resul t [facility] LAB [address] [place] [address], documented in this encounter Visit Diagnoses Diagnosis Other rn long term care (current) drug therapy documented in this encounter Care Teams Wallcovering Hanger Relationship Specialty Start Date End Date Rhoda Pina MD [address] [place] [address] PCP - General Family Medicine 02/07/25 documented as of this encounter
--- OUTSIDE RECORDS SUMMARY | 2025-07-25 06:39 | XMS_ITS | Encounter Summary ---
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 126 mg/dL LAB CHEMISTRY METHOD 04/24/2025 1:[address] [facility] Blood Venous blood specimen / Unknown Venipuncture / Unknown 04/24/2025 7:00 AM EDT 04/24/2025 10:21 AM EDT us Tonia Patel NP LAB BLOOD ORDERABLES Final Re sult [facility] [address] [place] [address], [place] [phone] * (ABNORMAL) Lipid panel with reflex to direct LDL (04/24/2025 7:00 AM EDT) Cholesterol 287(H) 0 - 200 mg/dL LAB CHEMISTRY METHOD 04/24/2025 12:37 PM [facility] Triglycerides 277(H) 0 - 150 mg/dL LAB CHEMISTRY METHOD 04/24/2025 12:37 PM [facility] HDL 39(L) >=40 mg/dL LAB CHEMISTRY METHOD 04/24/2025 12:37 PM [facility] LDL Calculated 193(H) 0 - 100 mg/dL LAB CHEMISTRY METHOD 04/24/2025 12:37 PM [facility] VLDL Cholesterol [place] 55.4 mg/dL LAB CHEMISTRY METHOD 04/24/2025 12:[address] [facility] Non HDL Chol. (LDL+VLDL) 248(H) <145 mg/dL LAB CHEMISTRY METHOD 04/24/2025 12:37 PM [facility] Chol/HDL Ratio 7.4(H) 0.0 - 4.4 LAB CHEMISTRY METHOD 04/24/2025 12:37 PM [facility] Blood Venous blood specimen / Unknown Venipuncture / Unknown 04/24/2025 7:00 AM EDT 04/24/2025 10:21 AM EDT us Tonia Staple V, COPPER FLOTATION OPERATOR LAB BLOOD ORDERABLES Final Re sult [facility] ([facility]) [facility] [address] [place] [address], [place] [phone] * Glucose, random (04/24/2025 7:00 AM EDT) [facility] Glucose 92 70 - 100 mg/dL LAB CHEMISTRY METHOD 04/24/2025 12:[address] [facility] Blood Venous blood specimen / Unknown Venipuncture / Unknown 04/24/2025 7:00 AM EDT 04/24/2025 10:21 AM EDT us Tonia Staple V, COPPER FLOTATION OPERATOR LAB BLOOD ORDERABLES Final Re sult Performing Organization Address City/[facility]/ZIP Co de Phone Number [facility] [address] [place] [address], [place] [phone] documented in this encounter Visit Diagnoses Diagnosis 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
--- OUTSIDE RECORDS SUMMARY | 2025-07-25 06:39 | XMS_ITS | Encounter Summary ---
Author Organization [facility] Address [address] [place] [address] Care Team Providers Care Trick Rodeo Rider Name Role Phone Rhoda Pina MD Primary Care Provider [phone] Encounter Details Date Type Department Care Team (Late st Contact Info) Description 04/26/2025 Lab Requisition [facility] - Main Lab [address] [facility] [place] [address] Darby Solitario Other skilled nursing (current) drug therapy Social History Tobacco Use [...] Procedure Name Priority Date/Time Associated Diagnosis Comments CBC WITH AUTO DIFFERENTIAL Routine 04/26/2025 7:00 AM EDT Other skilled nursing (current) drug therapy CBC AND DIFFERENTIAL Routine 04/26/2025 7:00 AM EDT Other skilled nursing (current) drug therapy THYROID STIMULATING HORMONE Routine 04/26/2025 7:00 AM EDT 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 LITHIUM LEVEL Routine 04/26/2025 7:00 AM EDT Other skilled nursing (current) drug therapy COMPREHENSIVE METABOLIC PANEL Routine 04/26/2025 7:00 AM EDT Other skilled nursing (current) drug therapy documented in this encounter Results * (ABNORMAL) CBC auto differential (04/26/2025 7:00 AM EDT) [facility] WBC 12.1(H) 4.8 - 10.8 K/mcL LAB HEMETOLOGY METHOD 04/26/2025 12:32 PM [facility] RBC 5.00(H) 3.80 - 4.80 M/mcL LAB [facility] Hemoglobin 14.7 11.5 - 16.0 g/dL LAB HEMETOLOGY METHOD 04/26/2025 12:32 PM [facility] Hematocrit 46.9 35.0 - 47.0 % LAB HEMETOLOGY METHOD 04/26/2025 12:32 PM [facility] MCV 94.0 79.0 - 98.0 FL LAB HEMETOLOGY METHOD [facility]2025 12[facility] MCH 29.5 27.0 - 32.0 pcg LAB HEMETOLOGY METHOD 04/26/2025 12:32 PM [facility] MCHC 31.3(L) 32.0 - 37.0 g/dL LAB HEMETOLOGY METHOD 04/26/2025 12:32 PM [facility] RDW 16.0(H) 11.0 - 15.0 % LAB HEMETOLOGY METHOD 04/26/2025 12:32 PM [facility] Platelets 451(H) 130 - 400 K/mcL LAB HEMETOLOGY METHOD 04/26/2025 12:32 PM [facility] MPV 11.0 7.0 - 11.0 FL LAB HEMETOLOGY METHOD 04/26/2025 12:32 PM [facility] NRBC 0.0 <1.0 % LAB HEMETOLOGY METHOD [facility]/26[facility]2025 12[facility] NRBC Absolute 0.00 <0.10 K/mcL LAB HEMETOLOGY METHOD 04/26/2025 12:[facility] Neutrophils Relative 46.2 % LAB HEMETOLOGY METHOD 04/26/2025 12:32 PM [facility] Lymphocytes Relative 40.3 % LAB HEMETOLOGY METHOD 04/26/2025 12:32 PM [facility] Monocytes Relative 8.6 % LAB HEMETOLOGY METHOD 04/26/2025 12:32 PM [facility] Eosinophils Relative 3.8 % LAB HEMETOLOGY METHOD 04/26/2025 12:32 PM [facility] Basophils Relative 0.8 % LAB HEMETOLOGY METHOD 04/26/2025 12:32 PM [facility] Immature Granulocytes Relative 0.3 % LAB HEMETOLOGY METHOD 04/26/2025 12:32 PM [facility] Neutrophils Absolute 5.59 1.50 - 7.00 K/mcL LAB HEMETOLOGY METHOD 04/26/2025 12:32 PM [facility] Lymphocytes Absolute 4.88 1.00 - 5.00 K/mcL LAB HEMETOLOGY METHOD 04/26/2025 12:32 PM [facility] Monocytes Absolute 1.04(H) 0.20 - 1.00 K/mcL LAB HEMETOLOGY METHOD 04/26/2025 12:32 PM [facility] Eosinophils Absolute 0.46 0.00 - 0.50 K/mcL LAB HEMETOLOGY METHOD 04/26/2025 12:32 PM [facility] Basophils Absolute 0.10 0.00 - 0.20 K/mcL LAB HEMETOLOGY METHOD 04/26/2025 12:32 PM [facility] Immature Granulocytes Absolute 0.04(H) 0.00 - 0.03 K/mcL LAB HEMETOLOGY METHOD 04/26/2025 12:32 PM EDT [facility] Blood Venous blood specimen / Unknown Venipuncture / Unknown 04/26/2025 7:00 AM EDT 04/26/2025 11:08 AM EDT [facility] LAB BLOOD ORDERABLES Final Resul t Performing Organization Address City/[facility]/ZIP Co de Phone Number [facility] [address] [place] [address], [place] [phone] * Thyroid stimulating hormone (04/26/2025 7:00 AM EDT) TSH 3.63 0.40 - 4.00 mcIU/mL LAB CHEMISTRY METHOD 04/26/2025 2:16 PM EDT [facility] Blood Venous blood specimen / Unknown Venipuncture / Unknown 04/26/2025 7:00 AM EDT 04/26/2025 11:08 AM EDT [facility] LAB BLOOD ORDERABLES Final Resul t Performing Organization Address [facility] Co de Phone Number [facility] [address] [place] [address], [place] [phone] * (ABNORMAL) [place] level (04/26/2025 7:00 AM EDT) [place] Level 1.6(HH) 0.6 - 1.2 mEq/L LAB CHEMISTRY METHOD 04/26/2025 2:21 PM EDT [facility] Comment:Results verified by repeat testing Blood Venous blood specimen / Unknown Venipuncture / Unknown 04/26/2025 7:00 AM EDT 04/26/2025 11:08 AM EDT [facility] LAB BLOOD ORDERABLES Final Resul t Performing Organization Address City/[facility]/ZIP Co de Phone Number [facility] [address] [place] [address], [place] [phone] * (ABNORMAL) Comprehensive metabolic panel (04/26/2025 7:00 AM EDT) Sodium 137 133 - 145 mmol/L LAB CHEMISTRY METHOD 04/26/2025 1:28 PM [facility] Potassium 4.8 3.5 - 5.5 mmol/L LAB CHEMISTRY METHOD 04/26/2025 1:28 PM [facility] Comment:Hemolysis present Chloride 103 96 - 110 mmol/L LAB CHEMISTRY METHOD 04/26/2025 1:28 PM [facility] CO2 25 21 - 32 mmol/L LAB CHEMISTRY METHOD 04/26/2025 1:28 PM [facility] Anion Gap 9 3 - 11 LAB CHEMISTRY METHOD 04/26/2025 1:28 PM [facility] Glucose 77 70 - 100 mg/dL LAB CHEMISTRY METHOD 04/26/2025 1:28 PM [facility] BUN 7 5 - 25 mg/dL LAB CHEMISTRY METHOD 04/26/2025 1:28 PM [facility] Creatinine 0.83 0.50 - 1.10 mg/dL LAB CHEMISTRY METHOD 04/26/2025 1:28 PM [facility] eGFR 91 >=60 mL/min/1. 73m2 LAB CHEMISTRY METHOD 04/26/2025 1:28 PM [facility] Comment:Calculation based on the Chronic Kidney Disease Epidemiology Collaboration (CKD-EPI) equation refit without adjustment for race. BUN/Creatinine Ratio 8.4 LAB CHEMISTRY METHOD 04/26/2025 1:28 PM [facility] Calcium 10.7(H) 8.5 - 10.5 mg/dL LAB CHEMISTRY METHOD 04/26/2025 1:28 PM [facility] AST (SGOT) 44(H) 10 - 42 unit/L LAB CHEMISTRY METHOD 04/26/2025 1:28 PM EDT [facility] Comment:Hemolysis present ALT (SGPT) 47 10 - 60 unit/L LAB CHEMISTRY METHOD 04/26/2025 1:28 PM EDT [facility] Alkaline Phosphatase 119 42 - 121 unit/L LAB CHEMISTRY METHOD 04/26/2025 1:28 PM EDT [facility] Total Protein 8.3(H) 6.0 - 8.0 g/dL LAB CHEMISTRY METHOD 04/26/2025 1:28 PM EDT [facility] Albumin 4.4 3.2 - 5.0 g/dL LAB CHEMISTRY METHOD 04/26/2025 1:28 PM EDT [facility] Total Bilirubin 0.4 0.0 - 1.4 mg/dL LAB CHEMISTRY METHOD 04/26/2025 1:28 PM EDT [facility] Blood Venous blood specimen / Unknown Venipuncture / Unknown 04/26/2025 7:00 AM EDT 04/26/2025 11:08 AM EDT [facility] LAB BLOOD ORDERABLES Final Resul t [facility] [address] [place] [address], documented in this encounter Visit Diagnoses Diagnosis 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
--- OUTSIDE RECORDS SUMMARY | 2025-07-25 06:39 | XMS_ITS | Clinical Summary ---
Author Organization 175 [facility] Address 175 [place] [address] Phone Care Team Providers Care Tower Director Name Role Phone Rhoda Pina MD Primary Care Provider Allergies No known active allergies Medications ammonium lactate (AmLactin) 12 % lotion Apply topically if needed for dry skin. 400 g 5 04/17/20 26 Active diclofenac (Voltaren Arthritis Pain) 1 % topical gel Apply 4 g topically 2 (two) times a day. 240 g 1 5 07/27/20 25 Active fluconazole (Diflucan) 200 mg tablet Take 1 tablet (200 mg total) by mouth 1 (one) time per week. 4 each 5 06/27/20 25 Encounters Date Type Department Care Team Description 05/28/2025 2:00 PM EDT Office Visit Orthopedic Surgery [facility] [address] [facility] [address] [place] [address] [place], DPM Dermatophytosis of nail (Primary Dx); Tinea pedis of both feet; Xerosis of skin; Tendinitis of right ankle; Tendinitis of left ankle 04/30/2025 Lab Requisition [facility] Main Lab [address] [facility] [place] [address] 04/30/2025 Lab Requisition [facility] Lab [address] [place] [address] Darby Solitario 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 04/26/2025 Lab Requisition [facility] - Main Lab [address] [place] [address] Eli Quiroga FNP 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 04/26/2025 Lab Requisition [facility] - Main Lab [address] [place] [address] Darby Solitario Other penitentiary (current) drug therapy 04/24/2025 Lab Requisition [facility] - Main Lab [address] [place] [address] Tonia Bañuelos V, CLAIM AGENT 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 from Last 3 Months Social History Tobacco Use Types Packs/Day Years Used Date Smoking Tobacco: Never Assessed Comments Unknown Sex and Gender Information Value Date Recorded Sex Assigned at Not on file Legal Sex Female 1:29 PM EST Gender Identity Not on file Sexual Orientation Not on file Last Filed Vital Signs Vital Sign Reading Time Taken Comments Blood Pressure - - Pulse - - Temperature - - Respiratory Rate - - Oxygen Saturation - - Inhaled Oxygen Concentration - - Weight 86 kg (189 lb 8 oz) 05/28/2025 2:18 PM ED T Height 160 cm (5' 3 ) 05/28/2025 2:18 PM EDT Body Mass Index 33.57 05/28/2025 2:18 PM EDT Plan of Treatment Health Maintenance Due Date Last Done Comments Breast Cancer Screening 1984 Hepatitis B Vaccines (1 of 3 - 19+ 3-dose series) 02/15/2003 Cervical Cancer Screening: P ap Smear 02/15/2005 Pneumococcal Vaccine: Pediatrics (0 to 5 Years) and At-Risk Patients (6 to 49 Years) (2 of 2 - PCV) 06/22/2018 06/22/2017 DTaP,Tdap,and Td Vaccines (2 - Tdap) 02/02/2023 02/02/2013 Depression Screening 11/07/2024 HIV Screening 02/07/2025 Hepatitis C Screening 02/07/2025 Medicare Annual Wellness Visit 02/07/2025 Social Influencers of Health Screening 02/07/2025 COVID-19 Vaccine (3 - 2024-2 6 season) 2025 03/26/2021, 02/09/2021 Influenza Vaccine (#1) 2025 Hypertension/CHF/CAD Annual BMP Blood Test 04/26/2026 04/26/2025, 04/14/2025 Cholesterol Screening (Lipid Panel) 04/24/2030 04/24/2025, 03/02/2024 HIB Vaccines Aged Out 06/22/2017 No longer eligi ble based on patient's age to complete this topic Meningococcal ACWY Vaccine Aged Out 06/22/2017 N o longer eligible based on patient's age to complete this topic HPV Vaccines Aged Out No longer eligi ble based on patient's age to complete this topic Hepatitis A Vaccines Aged Out No long er eligible based on patient's age to complete this topic IPV Vaccines Aged Out No longer eligi ble based on patient's age to complete this topic MMR Vaccines Aged Out No longer eligi ble based on patient's age to complete this topic Meningococcal B Vaccine Aged Out No l onger eligible based on patient's age to complete this topic RSV Immunization Patients Under 20 months Aged Out No longer eligible b ased on patient's age to complete this topic Varicella Vaccines Aged Out No longer eligible based on patient's age to complete this topic Procedures Procedure Name Priority Date/Time Associated Diagnosis Comments LITHIUM LEVEL Routine 04/30/2025 7:00 AM EDT 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 CBC WITH AUTO DIFFERENTIAL Routine 04/26/2025 7:00 AM EDT Other penitentiary (current) drug therapy MAGNESIUM Routine 04/26/2025 7:00 AM EDT Other penitentiary (current) drug therapy THYROID STIMULATING HORMONE Routine 04/26/2025 7:00 AM EDT 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 LITHIUM LEVEL Routine 04/26/2025 7:00 AM EDT Other penitentiary (current) drug therapy COMPREHENSIVE METABOLIC PANEL Routine 04/26/2025 7:00 AM EDT 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 [facility] [place] Level 0.6 0.6 - 1.2 mEq/L LAB CHEMISTRY METHOD 04/30/2025 12:13 PM EDT [facility] LAB Blood Venous blood specimen / Unknown Venipuncture / Unknown 04/30/2025 7:00 AM EDT 04/30/2025 9:40 AM EDT [facility] LAB BLOOD ORDERABLES Final Resul t [facility] LAB [address] [place] [address], [place] [phone] * (ABNORMAL) CBC auto differential (04/26/2025 7:00 AM EDT) [facility] WBC 12.1(H) 4.8 - 10.8 K/mcL LAB HEMETOLOGY METHOD 04/26/2025 12:32 PM EDT [facility] RBC 5.00(H) 3.80 - 4.80 M/mcL LAB HEMETOLOGY METHOD 04/26/2025 12:32 PM EDT [facility] Hemoglobin 14.7 11.5 - 16.0 g/dL LAB HEMETOLOGY METHOD 04/26/2025 12:32 PM EDT [facility] LAB Hematocrit 46.9 35.0 - 47.0 % LAB HEMETOLOGY METHOD 04/26/2025 12:32 PM EDT [facility] MCV 94.0 79.0 - 98.0 FL LAB HEMETOLOGY METHOD 04/[facility]25 [facility] MCH 29.5 27.0 - 32.0 pcg LAB HEMETOLOGY METHOD 04/26/2025 12:32 PM EDT [facility] LAB MCHC 31.3(L) 32.0 - 37.0 g/dL LAB HEMETOLOGY METHOD 04/26/2025 12:32 PM [facility] LAB RDW 16.0(H) 11.0 - 15.0 % LAB HEMETOLOGY METHOD 04/26/2025 12:32 PM [facility] LAB Platelets 451(H) 130 - 400 K/mcL LAB HEMETOLOGY METHOD 04/26/2025 12:32 PM T [facility] LAB MPV 11.0 7.0 - 11.0 FL LAB HEMETOLOGY METHOD 04/26/2025 12:32 PM [facility] LAB NRBC 0.0 <1.0 % LAB HEMETOLOGY METHOD 04/26/2025 12:32 PM [facility] LAB NRBC Absolute 0.00 <0.10 K/mcL LAB HEMETOLOGY METHOD 04/26/2025 12:32 PM T [facility] Neutrophils Relative 46.2 % LAB HEMETOLOGY METHOD 04/26[facility]2025 12:[facility] Lymphocytes Relative 40.3 % LAB HEMETOLOGY METHOD 04/26/2025 12:32 PM [facility] Monocytes Relative 8.6 % LAB HEMETOLOGY METHOD 04/26/2025 12:32 PM [facility] Eosinophils Relative 3.8 % LAB HEMETOLOGY METHOD 04/26/2025 12:32 PM EDT [facility] Basophils Relative 0.8 % LAB HEMETOLOGY METHOD 04/26/2025 12:32 PM EDT [facility] Immature Granulocytes Relative 0.3 % LAB HEMETOLOGY METHOD 04/26/2025 12:32 PM EDT [facility] Neutrophils Absolute 5.59 1.50 - 7.00 K/mcL LAB HEMETOLOGY METHOD 04/26/2025 12:32 PM EDT [facility] Lymphocytes Absolute 4.88 1.00 - 5.00 K/mcL LAB HEMETOLOGY METHOD 04/26/2025 12:32 PM EDT [facility] Monocytes Absolute 1.04(H) 0.20 - 1.00 K/mcL LAB HEMETOLOGY METHOD 04/26/2025 12:32 PM EDT [facility] Eosinophils Absolute 0.46 0.00 - 0.50 K/mcL LAB HEMETOLOGY METHOD 04/26/2025 12:32 PM EDT [facility] Basophils Absolute 0.10 0.00 - 0.20 K/mcL LAB HEMETOLOGY METHOD 04/26/2025 12:32 PM EDT [facility] Immature Granulocytes Absolute 0.04(H) 0.00 - 0.03 K/mcL LAB HEMETOLOGY METHOD 04/26/2025 12:32 PM EDT [facility] Blood Venous blood specimen / Unknown Venipuncture / Unknown 04/26/2025 7:00 AM EDT 04/26/2025 11:08 AM EDT [facility] LAB BLOOD ORDERABLES Final Resul t [facility] LAB [address] [place] [address], * Thyroid stimulating hormone (04/26/2025 7:00 AM EDT) TSH 3.63 0.40 - 4.00 mcIU/mL LAB CHEMISTRY METHOD 04/26/2025 2:16 PM EDT [facility] Blood Venous blood specimen / Unknown Venipuncture / Unknown 04/26/2025 7:00 AM EDT 04/26/2025 11:08 AM EDT Darby Solitario LAB BLOOD ORDERABLES Final Resul t Performing Organization Address [facility] Co de Phone Number [facility] [address] [place] [address], [place] [phone] * (ABNORMAL) Magnesium (04/26/2025 7:00 AM EDT) [facility] Magnesium 2.7(H) 1.9 - 2.6 mg/dL LAB CHEMISTRY METHOD 04/26/2025 8:13 PM EDT [facility] Comment:Hemolysis present Blood Venous blood specimen / Unknown Venipuncture / Unknown 04/26/2025 7:00 AM EDT 04/26/2025 11:07 AM EDT Eli Quiroga [facility] LAB BLOOD ORDERABLES Final Result Performing Organization Address [facility] de Phone Number [facility] [address] [place] [address], [place] [phone] * (ABNORMAL) Comprehensive metabolic panel (04/26/2025 7:00 AM EDT) [facility] Sodium 137 133 - 145 mmol/L LAB CHEMISTRY METHOD 04/26/2025 1:28 PM EDT [facility] Potassium 4.8 3.5 - 5.5 mmol/L LAB CHEMISTRY METHOD 04/26/2025 1:28 PM EDT [facility] LAB Comment:Hemolysis present Chloride 103 96 - 110 mmol/L LAB CHEMISTRY METHOD 04/26/2025 1:28 PM EDT [facility] CO2 25 21 - 32 mmol/L [...] unit/L LAB CHEMISTRY METHOD 04/26/2025 1:28 PM [facility] LAB Comment:Hemolysis present ALT (SGPT) 47 10 - 60 unit/L LAB CHEMISTRY METHOD 04/26/2025 1:28 PM [facility] Alkaline Phosphatase 119 42 - 121 unit/L LAB CHEMISTRY METHOD 04/26/2025 1:28 PM [facility] Total Protein 8.3(H) 6.0 - 8.0 g/dL LAB CHEMISTRY METHOD 04/26/2025 1:28 PM [facility] Albumin 4.4 3.2 - 5.0 g/dL LAB CHEMISTRY METHOD 04/26/2025 1:28 PM EDT [facility] Total Bilirubin 0.4 0.0 - 1.4 mg/dL LAB CHEMISTRY METHOD 04/26/2025 1:28 PM T [facility] Blood Venous blood specimen / Unknown Venipuncture / Unknown 04/26/2025 7:00 AM EDT 04/26/2025 11:08 AM EDT [facility] LAB BLOOD ORDERABLES Final Resul t [facility] [address] [place] [address], [place] [phone] * (ABNORMAL) Lipid panel with reflex to direct LDL (04/24/2025 7:00 AM EDT) Cholesterol 287(H) 0 - 200 mg/dL LAB CHEMISTRY METHOD 04/24/2025 12:37 PM [facility] Triglycerides 277(H) 0 - 150 mg/dL LAB CHEMISTRY METHOD 04/24/2025 12:37 PM [facility] HDL 39(L) >=40 mg/dL LAB CHEMISTRY METHOD 04/24/2025 12:37 PM [facility] LDL Calculated 193(H) 0 - 100 mg/dL LAB CHEMISTRY METHOD 04/24/2025 12:37 PM [facility] VLDL Cholesterol Rodger 55.4 mg/dL LAB CHEMISTRY METHOD 04/24/2025 12:37 PM [facility] Non HDL Chol. (LDL+VLDL) 248(H) <145 mg/dL LAB CHEMISTRY METHOD 04/24/2025 12:37 PM [facility] Chol/HDL Ratio 7.4(H) 0.0 - 4.4 LAB CHEMISTRY METHOD 04/24/2025 12:37 PM [facility] LAB Blood Venous blood specimen / Unknown Venipuncture / Unknown 04/24/2025 7:00 AM EDT 04/24/2025 10:21 AM EDT us Tonia Staple V, CLAIM AGENT LAB BLOOD ORDERABLES Final Re sult Performing Organization Address City/[facility]/ZIP Co de Phone Number [facility] [address] [place] [address], [place] [phone] * Hemoglobin A1c (04/24/2025 7:00 AM EDT) Hemoglobin A1C 6.0 <6.5 % LAB CHEMISTRY METHOD 04/24/2025 1:38 PM EDT [facility] Mean Bld Glu Estim. 126 mg/dL LAB CHEMISTRY METHOD 04/24/2025 1:38 PM EDT [facility] Blood Venous blood specimen / Unknown Venipuncture / Unknown 04/24/2025 7:00 AM EDT 04/24/2025 10:21 AM EDT us Tonia Staple V, CLAIM AGENT LAB BLOOD ORDERABLES Final Re sult Performing Organization Address [facility]/ZIP Co de Phone Number [facility] [address] [place] [address], [place] [phone] * Glucose, random (04/24/2025 7:00 AM EDT) Glucose 92 70 - 100 mg/dL LAB CHEMISTRY METHOD 04/24/2025 12:37 PM EDT [facility] Blood Venous blood specimen / Unknown Venipuncture / Unknown 04/24/2025 7:00 AM EDT 04/24/2025 10:21 AM EDT us Tonia Staple V, CLAIM AGENT LAB BLOOD ORDERABLES Final Re sult Performing Organization Address City/[facility]/ZIP Co de Phone Number [facility] [address] [place] [address], [place] [phone] from Last 3 Months Insurance MEDICARE MEDICAID - [place] Care Teams Tower Director Relationship Specialty Start Date End Date Rhoda Pina MD [address] [place] [id number] PCP - General Family Medicine 02/07/25
--- OUTSIDE RECORDS SUMMARY | 2025-07-25 06:39 | XMS_ITS | Encounter Summary ---
Author Organization [employer] Address [address] [place] [address] 7 [place] [address] Care Team Providers Care Extrusion Die Corrector Name Role Phone Rhoda Pina MD Primary Care Provider [phone] Estrellita Piper CNP Primary Care Provider [phone] Reason for Visit * Reason Onset Date Comments Hospital Follow-up 10/20/2023 Encounter Details Date Type Department Care Team (Late Contact Info) Description 10/20/2023 Telephone [facility] MED & PEDS [address] [place], [place] [phone] Rhoda Pina MD [address] [place] [address] Hospital Follow-up Social History Tobacco Use Types [...] from jenny with [facility] returning call for F appointment. [facility] on [facility]. Diagnosed with gastroesophageal reflux disease Please contact jenny at [phone] documented in this encounter Plan of Treatment Upcoming Encounters Date Type Department Care Team (Late Contact Info) Description 08/09/2025 1:00 PM EDT Office Visit [facility] MED [facility] PEDS [address] [place] [address] Estrellita Piper CNP [address] [place] [address] documented as of this encounter Visit Diagnoses Not on filedocumented in this encounter Care Teams Extrusion Die Corrector Relationship Specialty Start Date End Date Rhoda Pina MD [address] [place] [address] PCP - General Family Medicine 10/19/12 06/12/25 Estrellita Piper CNP [address] [place] [address] PCP - General Family Medicine 06/13/25 documented as of this encounter
--- OUTSIDE RECORDS SUMMARY | 2025-07-25 06:39 | XMS_ITS | Encounter Summary ---
Author Organization [employer] Address [address] [place] [address] Care Team Providers Care Expanded Function Dental Assistant Name Role Phone Rhoda Pina MD Primary Care Provider [phone] Estrellita Piper CNP Primary Care Provider [phone] Reason for Visit * Reason Onset Date Comments Hospital Follow-up 12/21/2024 Encounter Details Date Type Department Care Team ([facility] Contact Info) Description 12/21/2024 Telephone [facility] MEDICINE [address] [place] [address] Rhoda Pina MD [address] [place] [address] Hospital Follow-up Social History Tobacco Use Types [...] Miscellaneous Notes * Telephone Encounter - Shamar Nguyen - 12/21/2024 10:51 AM EST Tc from pt requesting a HDF appt. Hospital: [facility] Date of admission: 12/17 Discharge date: 12/21 Diagnosed: Bi polar Disorder *Send message to Soha Clinical Care Coordinators Contact pt at [phone] documented in this encounter Plan of Treatment Upcoming Encounters Date Type Department Care Team (Late st Contact Info) Description 08/09/2025 1:00 PM EDT Office Visit [facility] MED & PEDS [address] [place] [address] Estrellita Piper CNP [address] [place] [address] documented as of this encounter Visit Diagnoses Not on filedocumented in this encounter Additional Health Concerns Assessment Noted Time PHQ-9 Depression Total Score: 18 024 9:52 AM EDT documented as of this encounter Care Teams Expanded Function Dental Assistant Relationship Specialty Start Date End Date Rhoda Pina MD [address] [place] [address] PCP - General Family Medicine 10/19/12 06/12/25 Estrellita Piper CNP [address] [place] [address] PCP - General Family Medicine 06/13/25 documented as of this encounter
--- OUTSIDE RECORDS SUMMARY | 2025-07-25 06:39 | XMS_ITS | Clinical Summary ---
Author Organization [facility] Address [address] [place], [place] [phone] Phone Care Team Providers Care Rv Repair Technician Name Role Phone Rhoda Pina MD Primary Care Provider [phone] Allergies No known active allergies Medications albuterol 90 mcg/actuation inhaler Inhale 1 puff into the lungs 4 (four) times a day. 06/01/2023 Active aspirin-acetami nophen-caffeine (EXCEDRIN EXTRA STRENGTH) 250-250-65 mg per tablet Take 1 tablet by mouth every 6 (six) hours as needed. 06/01/2023 Active clonazePAM (KLONOPIN) 1 MG tablet Take 1 tablet by mouth 3 (three) times a day. 10/03/2023 Active cholecalciferol (VITAMIN D3) 25 MCG (1,000 unit) tablet TAKE 1 TABLET (25 MCG) BY MOUTH IN THE MORNING. 03/30/2024 Active dextroamphetami ne-amphetamine (ADDERALL) 30 mg Tab tablet Take 30 mg by mouth. 10/13/2023 Active escitalopram oxalate (LEXAPRO) 20 MG tablet Take 1 tablet by mouth daily. 12/07/2023 Active esomeprazole (NEXIUM) 40 MG capsule Take 1 capsule by mouth. 10/12/2023 Active fluticasone propionate (FLONASE) 50 mcg/actuation nasal spray 1 spray. 06/01/2023 Active gabapentin (NEURONTIN) 300 MG capsule Take 1 capsule by mouth. 09/26/2023 Active lamoTRIgine (LAMICTAL) 100 MG IMMEDIATE release tablet Take 150 mg by mouth. 10/14/2023 Active lithium carbonate 300 MG capsule 04/16/2024 Active lithium carbonate 150 mg capsule Take 1 capsule by mouth nightly at bedtime. 09/14/2023 Active loratadine (CLARITIN) 10 mg tablet Take 10 mg by mouth. 10/14/2023 Active mirtazapine (REMERON) 15 MG tablet Take 1 tablet by mouth daily. 11/23/2023 Active SUMAtriptan (IMITREX) 50 MG tablet Take 50 mg by mouth. 03/28/2023 Active traZODone (DESYREL) 50 MG tablet Take 1 tablet by mouth. 09/23/2023 Active cloNIDine HCL (CATAPRES) 0.1 MG tablet Take 1 tablet by mouth 3 (three) times a day. 09/13/2023 Active Active Problems Problem Noted Date Diagnosed Date Macromastia 05/07/2024 Chronic neck and back pain 05/07/2024 Family History Medical History Relation Comments Cancer Father Relation Status Comments Father Mother Alive Social History Tobacco Use Types Packs/Day Years Used Date Smoking Tobacco: Former Cigarettes 2 23 2 000 - 2022 Alcohol Use Standard Drinks/Week Comments Not Currently 0 (1 standard drink = 0.6 oz pur e alcohol) Education Answer Date Recorded Are you interested in more education? Not on kayla e 04/23/2024 Are you concerned about learning? Not on file 04/23/2024 No 04/23/2024 No 04/23/2024 Digital Access Answer Date Recorded No 04/23/2024 No 04/23/2024 Reliable internet access at home? Not on file 04/23/2024 Device with a working camera? Not on file Comments Unknown Sex and Gender Information Value Date Recorded Sex Assigned at Not on file Legal Sex Female 11:43 AM EDT Gender Identity Not on file Sexual Orientation Not on file Last Filed Vital Signs Vital Sign Reading Time Taken Comments Blood Pressure 111/79 05/07/2024 10:05 AM EDT Pulse 75 05/07/2024 10:05 AM EDT Temperature - - Respiratory Rate - - Oxygen Saturation - - Inhaled Oxygen Concentration - - Weight 82.8 kg (182 lb 9.6 oz) 05/07/2024 10:05 AM EDT Height 158 cm (5' 2.2 ) 05/07/2024 10:05 AM EDT Body Mass Index 33.18 05/07/2024 10:05 AM EDT Plan of Treatment Health Maintenance Due Date Last Done Comments Adult Td,Tdap Booster 1984 CREATININE LEVEL 1984 LITHIUM LEVEL 1984 TSH LEVEL 1984 DEPRESSION SCREENING 1996 SMOKING Hx and SMOKELESS TOB ACCO SCREENING 02/15/1997 HEPATITIS C SCREENING 02/15/2002 HIV ONE-TIME SCREENING (18-6 5 YEARS) 02/15/2002 PAP SMEAR 02/15/2005 SCREENING FOR DIABETES 02/15/2019 MAMMOGRAM 2024 INFLUENZA VACCINE (#1) 2025 COVID-19 VACCINE (1 - 2023-2 5 season) 2025 PNEUMOCOCCAL VACCINES (0-49 years) Aged Out 2016 No longer eligible based on patient's age to complete this topic HEPATITIS A VACCINES Aged Out No long er eligible based on patient's age to complete this topic HIB VACCINES Aged Out No longer eligi ble based on patient's age to complete this topic MENINGOCOCCAL VACCINES (ACWY) Aged Out No longer eligible based on patient's age to complete this topic MENINGOCOCCAL VACCINES (B) Aged Out N o longer eligible based on patient's age to complete this topic Medical Devices Not on file Insurance [facility] MEDICARE PART A & [place] & B [facility] MEDICARE PART A & B Care Teams Rv Repair Technician Relationship Specialty Start Date End Date Rhoda Pina MD [address] [place] [id number] PCP - General Family Medicine 05/07/24 Additional Source Comments The information contained in this document represents components of the legal health record. It is not the complete legal health record.[facility]
--- OUTSIDE RECORDS SUMMARY | 2025-07-25 06:39 | XMS_ITS | Encounter Summary ---
Author Organization [employer] Address [address] [place] [address] Care Team Providers Care Pharmacy Benefits Coordinator Name Role Phone Rhoda Pina MD Primary Care Provider [phone] Estrellita Piper CNP Primary Care Provider [phone] Reason for Visit * Reason Onset Date Comments Appointment Request 12/12/2023 Encounter Details Date Type Department Care Team ([facility] st Contact Info) Description 12/12/2023 Telephone [facility] MEDICINE [address] [place] [address] Rhoda Pina MD [address] [place] [address] Appointment Request Social History Tobacco Use Types [...] 9:28 AM EST Tc from Melinda from [facility] calling to reschedule appt for 12/08/2022 mortgage loan underwriter did explain there is no availability at the moment documented in this encounter Plan of Treatment Upcoming Encounters Date Type Department Care Team (Late st Contact Info) Description 08/09/2025 1:00 PM EDT Office Visit [facility] MED & PEDS [address] [place] [address] Estrellita Piper CNP [address] [place] [address] documented as of this encounter Visit Diagnoses Not on filedocumented in this encounter Care Teams Pharmacy Benefits Coordinator Relationship Specialty Start Date End Date Rhoda Pina MD [address] [place] [address] PCP - General Family Medicine 10/19/12 06/12/25 Estrellita Piper CNP [address] [place] [phone] PCP - General Family Medicine 06/13/25 documented as of this encounter
--- OUTSIDE RECORDS SUMMARY | 2025-07-25 06:39 | XMS_ITS | Encounter Summary ---
Author Organization [employer] Address [address] [facility] [address] 7t [place] [address] Care Team Providers Care Door Furring Installer Name Role Phone Rhoda Pina MD Primary Care Provider [phone] Estrellita Piper CNP Primary Care Provider [phone] Reason for Visit * Reason Onset Date Comments Hospital Follow-up 04/30/2025 Encounter Details Date Type Department Care Team ([facility] Contact Info) Description 04/30/2025 Telephone [facility] [address] [place] [address] Rhoda Pina MD 505 [place] [address] Hospital Follow-up Social History Tobacco Use Types [...] * Telephone Encounter - Aneesh Liang - 04/30/2025 2:54 PM EDT Tc from pt requesting a HDF appt. Hospital: [facility] Date of admission: 04/23/25 Discharge date: 05/01/25 Diagnosed: PTSD, BP, Anxiety, and ADHD Chen states pt will only be available tomorrow because on Tuesday she will turn herself in for 10 day incarceration and will be available after 05/13. Please contact Chen at [phone]. documented in this encounter Plan of Treatment Upcoming Encounters Date Type Department Care Team (Late st Contact Info) Description 08/09/2025 1:00 PM EDT Office Visit [facility] MED & PEDS [address] [place] [address] Estrellita Piper CNP 505 [place] [address] documented as of this encounter Visit Diagnoses Not on filedocumented in this encounter Additional Health Concerns Assessment Noted Time PHQ-9 Depression Total Score: 23 025 9:51 AM EDT documented as of this encounter Care Teams Door Furring Installer Relationship Specialty Start Date End Date Rhoda Pina MD [address] [place] [address] PCP - General Family Medicine 10/19/12 06/12/25 Estrellita Piper CNP 230 [place] [address] PCP - General Family Medicine 06/13/25 documented as of this encounter
--- OUTSIDE RECORDS SUMMARY | 2025-07-25 06:39 | XMS_ITS | Encounter Summary ---
Author Organization [facility] Address [address] [place] [address] Care Team Providers Care Pre K Lead Teacher Name Role Phone Rhoda Pina MD Primary Care Provider [phone] Encounter Details Date Type Department Care Team ([facility] Contact Info) Description 04/30/2025 Lab Requisition [facility] - Main Lab [address] [facility] [place] [address] Social History Tobacco Use Types [...] on filedocumented in this encounter Care Teams Pre K Lead Teacher Relationship Specialty Start Date End Date Rhoda Pina MD [address] [place] [address] PCP - General Family Medicine 02/07/25 documented as of this encounter
--- OUTSIDE RECORDS SUMMARY | 2025-07-25 06:39 | XMS_ITS | Encounter Summary ---
Author Organization [employer] Address [address] [facility] [address] 7t [place] [address] Care Team Providers Care Master Printer Name Role Phone Rhoda Pina MD Primary Care Provider [phone] Estrellita Piper CNP Primary Care Provider [phone] Encounter Details Date Type Department Care Team (Late st Contact Info) Description 02/13/2025 Orders Only [facility] MED & PEDS [address] [place] [address] ProviderRanulfo MD Social History Tobacco Use Types Packs/Day Years [...] Description 08/09/2025 1:00 PM EDT Office Visit [facility] MED & PEDS 505 [place], [place] [phone] Estrellita Piper CNP 505 [place], [place] [phone] documented as of this encounter Procedures Procedure Name Priority Date/Time Associated Diagnosis Comments PAP/HPV Routine 01/18/2025 10:44 AM EDT HM PAP/HPV Routine 12/12/2023 10:43 AM EST documented in this encounter Results * HM PAP/HPV (01/18/2025 10:44 AM EDT) us Historical Provider HEALTH MAINTENANCE Final Result * HM PAP/HPV (12/12/2023 10:43 AM EST) us Historical Provider HEALTH MAINTENANCE Final Result documented in this encounter Visit Diagnoses Not on filedocumented in this encounter Additional Health Concerns Assessment Noted Time PHQ-9 Depression Total Score: 23 025 9:51 AM EDT documented as of this encounter Care Teams Master Printer Relationship Specialty Start Date End Date Rhoda Pina MD [address] [place] [address] PCP - General Family Medicine 10/19/12 06/12/25 Estrellita Piper CNP [address] [place] [address] PCP - General Family Medicine 06/13/25 documented as of this encounter
--- OUTSIDE RECORDS SUMMARY | 2025-07-25 06:39 | XMS_ITS | Clinical Summary ---
Author Organization [employer] Address [address] [facility] 7t [place] [address] Care Team Providers Care Medical Billing Coordinator Name Role Phone Estrellita Piper LANGUAGE PATH Primary Care Provider [phone] Allergies No known active allergies Medications * This document contains information received from the source organization and may not represent a complete record from that organization. docusate sodium (Colace) 100 MG capsule Take 2 capsules (200 mg) by mouth if needed at bedtime for constipation. 180 capsule 1 03/28/20 23 Active albuterol (2.5 MG/3ML) 0.083% nebulizer solutionIndicat ions:COPD with acute exacerbation (CMS/[facility]) Take 3 mL (2.5 mg) by nebulization every 4 (four) hours if needed for wheezing or shortness of breath. 75 mL 1 06/01/20 23 Active Adderall XR 30 MG 24 hr capsule Take 1 capsule by mouth 1 (one) time each day. 09/26/20 23 Active Vraylar 6 MG capsule Take 1 capsule by mouth 1 (one) time each day. 10/03/20 Active clonazePAM (KlonoPIN) 1 MG tablet Take 1 tablet by mouth 3 times daily. 10/03/20 Active cloNIDine (Catapres) 0.1 MG tablet Take 1 tablet by mouth 3 times daily. 09/13/20 23 Active esomeprazole (NexIUM) [address] capsule Take 1 capsule by mouth 1 (one) time each day. 10/12/20 23 Active gabapentin (Neurontin) 300 MG capsule Take 1 capsule by mouth 2 times daily. 09/26/20 23 Active Myrbetriq 50 MG 24 hr tablet Take 1 tablet by mouth 1 (one) time each day. 10/12/20 23 Active traZODone (Desyrel) 50 MG tablet Take 1 tablet by mouth if needed at bedtime. 09/23/20 Active lithium 150 MG capsule Take 1 capsule by mouth at bedtime. 09/14/20 Active escitalopram (Lexapro) 20 MG tablet Take 1 tablet by mouth Once daily. 12/07/19 Active lamoTRIgine (LaMICtal) 100 MG tablet Take 1 tablet by mouth Once per day. 01/26/20 24 Active simvastatin (Zocor) 40 MG tablet Take 1 tablet (40 mg) by mouth at bedtime. 30 tablet 11 06/13/20 24 Active tolterodine LA (Detrol LA) 4 MG 24 hr capsule Take 1 capsule by mouth Once per day. 09/14/20 Active lithium 300 MG capsule Take 1 capsule by mouth 2 times daily. 09/14/20 Active albuterol (ProAir HFA) 108 (90 Base) MCG/ACT inhalerIndicati ons:COPD with acute exacerbation (CMS/HCC) take 2 puffs by Inhalation route every 4 hours as needed for wheezing or shortness of breath 18 g 1 09/18/20 24 Active budesonide (Pulmicort Flexhaler) 180 MCG/ACT inhaler Inhale 1 puff in the morning and at bedtime. Rinse mouth with water after use to reduce aftertaste and incidence of candidiasis. Do not swallow. 1 each 09/18/20 24 2024 Active buPROPion (Wellbutrin) 75 MG tablet Take 0.5 tablets by mouth Once per day. 12/21/19 25 Active mirtazapine (Remeron) 45 MG tablet Take 0.5 tablets by mouth at bedtime. 12/21/19 25 Active thiamine (Vitamin B-1) 100 MG tablet Take 1 tablet by mouth Once per day. 12/21/19 25 Active lamoTRIgine (LaMICtal) 150 MG tablet Take 1 tablet by mouth at bedtime. 12/21/19 25 Active amphetamine-dex troamphetamine (Adderall) 10 MG tablet Take 1 tablet by mouth Once per day. 12/31/19 25 Active triamcinolone (Kenalog) 0.1 % cream Apply topically if needed in the morning and at bedtime (pain and swelling). 30 g 2 01/24/20 25 Active ibuprofen 800 MG tablet TAKE 1 TABLET BY MOUTH THREE TIMES DAILY 90 tablet 04/16/20 25 Active cyclobenzaprine (Flexeril) 5 MG tabletIndicatio ns:Acute back pain, unspecified back location, unspecified back pain laterality TAKE 1 TABLET BY MOUTH AT BEDTIME FOR 15 DAYS 15 tablet 06/06/20 25 Active cyclobenzaprine (Flexeril) 10 MG tabletIndicatio ns:Acute back pain, unspecified back location, unspecified back pain laterality Take 1 tablet (10 mg) by mouth 3 times daily. 90 tablet 1 06/25/20 25 Active Allergy Relief 10 MG tablet TAKE 1 TABLET (10 MG) BY MOUTH IN THE MORNING. 30 tablet 4 07/12/20 25 Active betamethasone dipropionate 0.05 % creamIndication s:Dermatitis Apply topically 2 times daily. 45 g 07/17/20 25 Active loratadine (Claritin) 10 MG tablet TAKE 1 TABLET (10 MG) BY MOUTH IN THE MORNING. 90 tablet 1 11/23/19 25 2024 Discontinued Active Problems Problem Noted Date Diagnosed Date [...] done, followed by therapist and psych. Today services were offered but she refused, no [...] Center 01/27/2023 10:00 AM Rhoda Pina MD [facility] MED [facility] Thrombocytopenia 05/14/2013 Assessment & Plan (03/17/2024 2:09 PM EDT): Hx of thrombocytopenia and hereditary spherocytosis following with [facility] Heme/Onc Pt requesting repeat of CBC and iron studies today, placed Encounters Date Type Department Care Team Description 07/17/2025 10:45 AM EDT Office Visit [facility] MED & PEDS [address] [place] [address] Estrellita Piper CNP Dermatitis (Primary Dx) 07/17/2025 Travel 07/16/2025 Telephone [facility] MEDICINE [address] [place] [address] Estrellita Piper CNP Nurse Triage 07/11/2025 Refill [facility] [address] [place] [address] Rhoda Pina MD 06/25/2025 10:30 AM EDT Telemedicine [facility] [address] [place] [address] Brigido Perry MD Acute back pain, unspecified back location, unspecified back pain laterality 06/06/2025 Telephone [facility] MEDICINE [address] [place] [address] Rhoda Pina MD FYI 06/06/2025 Telephone [facility] MEDICINE [address] [place] [address] Rhoda Pina MD Med Refill; Medication Question 05/30/2025 1:00 PM EDT Office Visit [facility] PED[facility] [address] [place] [address] Talib Victoria MD Constipation, unspecified constipation type (Primary Dx); Left lower quadrant abdominal pain 05/30/2025 Travel 05/30/2025 Telephone [facility] PED[facility] [address] [place], [place] [phone] Rhoda Pina MD Nurse Triage 05/01/2025 Telephone [facility] MEDICINE [address] [place], [place] [phone] Rhoda Pina MD FYI; Call Back Request 04/30/2025 Patient Outreach [facility] [address] [place], [place] [phone] Rhoda Pina MD Transition Of Care (Tcm) (HDF- unscheduled LVM ) 04/30/2025 Telephone [facility] MEDICINE [address] [place], [place] [phone] Rhoda Pina MD Hospital Follow-up from Last 3 Months Immunizations Immunization Administration Dates Next Due DTaP 02/02/2013 Hib (PRP-T) 06/22/2017 Martha SARS-CoV-2 Vaccination 03/26/2021 Meningococcal MCV4P ACYW-135 06/22/2017 Pneumococcal Polysaccharide PPSV23 06/22/2017 Social History Tobacco Use Types Packs/Day Years Used Date Smoking Tobacco: Former Cigarettes Q uit: 05/11/2023 Passive Smoke Exposure: Never Smokeless Tobacco: Never Tobacco Cessation:Counseling Given: Not Answered Depression Answer Date Recorded Patient Health Questionnaire-9 Score 01/18/2025 Patient Health Questionnaire-9 Score 23 01/18/2025 [...] Sign Reading Time Taken Comments Blood Pressure 120/76 07/17/2025 11:07 AM EDT Pulse 92 07/17/2025 11:07 AM EDT Temperature 36.1 C (97 F) 07/17/2025 11:07 AM EDT Respiratory Rate 12 07/17/2025 11:07 AM EDT Oxygen Saturation 100% 07/17/2025 11:07 AM EDT Inhaled Oxygen Concentration - - Weight 87.5 kg (193 lb) 07/17/2025 11:07 AM EDT Height 157.5 cm (5' 2 ) 07/17/2025 11:07 AM EDT Body Mass Index 35.3 07/17/2025 11:07 AM EDT Plan of Treatment Upcoming Encounters Date Type Department Care Team ([facility] st Contact Info) Description 08/09/2025 1:00 PM EDT Office Visit [facility] PEDS [address] [place] [address] Estrellita Piper, [facility] [address] [place] [address] Health Maintenance Due Date Last Done Comments HIV Screening 1984 Disability Screening 1984 Alcohol/Substance Use Screening 1996 Family Planning (PISQ) 02/15/1999 HPV Vaccines (1 - 3-dose series) 02/15/1999 Hepatitis C Screening 02/15/2002 Hepatitis B Vaccines (1 of 3 - 19+ 3-dose series) 02/15/2003 Pneumococcal Vaccine: Pediatrics (0 to 5 Years) and At-Risk Patients (6 to 49) Years (2 of 2 - PCV) 06/22/2018 06/22/2017 DTaP/Tdap/Td Vaccines (2 - Tdap) 02/02/2023 02/02/2013 Mammogram 2024 SDOH Screening 02/09/2025 02/10/2024 COVID-19 Vaccine (3 - season) 2025 03/26/2021, 02/09/2021 Influenza Vaccine (#1) 2025 Depression Monitoring 07/21/2025 01/18/2025, 025 Cervical Cancer Screening 01/18/2026 HPV/Cotest 01/18/2026 Pap Smear 01/18/2026 01/18/2025, 12/12/2023 Tobacco Screening 05/30/2026 05/30/2025 Lipid Panel 03/02/2029 03/02/2024, 03/08, 05/12/2022, Additional [...] Procedure Name Priority Date/Time Associated Diagnosis Comments HM PAP/HPV Routine 01/18/2025 10:44 AM EDT LIPID PANEL, STANDARD Routine 03/02/2024 10:00 AM EDT Bipolar disorder, current episode mixed, moderate (CMS/HCC) Abnormal finding of blood chemistry, unspecified from Last 3 Months or Most Recently Relevant to Health Maintenance Results * HM PAP/HPV (01/18/2025 10:44 AM EDT) Historical Provider MD HEALTH MAINTENANCE Final Result * (ABNORMAL) Lipid Panel, Standard (03/02/2024 10:00 AM EDT) Triglycerides 175(H) <150 mg/dL [facility] Comment:Desirable Triglyceri de: less than 150 mg/dLBorderline High Triglyceride 150-199 mg/dLHigh Triglyceride: 200-499 mg/dLVery High Triglyceride: greater than or equal to 5OO mg/dL Cholesterol 216(H) <200 mg/dL [facility] Comment:Desirable Cholestero l: less than 200 mg/dLBorderline High Cholesterol: 200-239 mg/dLHigh Cholesterol: greater than 239 mg/dL LDL Cholesterol Calculated 131(H) <100 mg/dL [facility] Comment:Desirable LDL: less than 100 mg/dLNear Optimal/Above Optimal LDL: 110- 129 mg/dLBorderline High LDL: 130-159 mg/dLHigh LDL: 160-189 mg/dLVery High LDL: greater than or equal to 190 mg/dL HDL Cholesterol 50 >40 mg/dL [facility] Comment:Desirable HDL: great er than 40 mg/dL Note: This HDL assay may give artificially low results in patients with liver disease. Blood Venous blood specimen / Unknown 03/02/2024 10:00 AM EDT 03/02/2024 10:00 AM EDT Beronica Venegas WAREHOUSE LOADER LAB BLOOD ORDERABLES Final Res ult [facility] [address] [place] [address] [phone] from Last 3 Months or Most Recently Relevant to Health Maintenance Insurance [facility] STANDARD MEDICARE [place] [phone] Care Teams Medical Billing Coordinator Relationship Specialty Start Date End Date Estrellita Piper CNP PCP - General Family Medicine 06/13/25
--- OUTSIDE RECORDS SUMMARY | 2025-07-25 06:39 | XMS_ITS | Encounter Summary ---
Author Organization [employer] Address [address] [place] [address] 7t [place] [address] Care Team Providers Care Public Administration Teacher Name Role Phone Rhoda Pina MD Primary Care Provider [phone] Estrellita Piper CNP Primary Care Provider [phone] Reason for Visit * Reason Onset Date Comments Triage 01/25/2023 Encounter Details Date Type Department Care Team ([facility] Contact Info) Description 01/25/2023 Telephone [facility] MED & PEDS [address] [place] [address] Rhoda Pina MD [address] [place] [address] Triage Social History Tobacco Use Types Packs/Day [...] today at 3pm with Dr. Morales at [facility]. Protocol Used: COVID-19 - Diagnosed or [...] accepted this outcome Please contact pt at [phone] documented in this encounter Plan of Treatment Upcoming Encounters Date Type Department Care Team (Late st Contact Info) Description 08/09/2025 1:00 PM EDT Office Visit [facility] MED & PEDS [address] [place] [address] Estrellita Piper CNP [address] [place] [address] documented as of this encounter Visit Diagnoses Not on filedocumented in this encounter Care Teams Public Administration Teacher Relationship Specialty Start Date End Date Rhoda Pina MD [address] [place] [address] PCP - General Family Medicine 10/19/12 06/12/25 Estrellita Piper CNP [address] [place] [address] PCP - General Family Medicine 06/13/25 documented as of this encounter
--- OUTSIDE RECORDS SUMMARY | 2025-07-25 06:40 | XMS_ITS | Encounter Summary ---
Author Organization [employer] Address [address] [facility] [address] 7t [place] [address] Care Team Providers Care Jacquard Loom Fixer Name Role Phone Rhoda Pina MD Primary Care Provider [phone] Estrellita Piper CNP Primary Care Provider [phone] Reason for Visit * Reason Onset Date Comments Nurse Triage 03/18/2025 Encounter Details Date Type Department Care Team ([facility] st Contact Info) Description 03/18/2025 Telephone [facility] MEDICINE [address] [place] [address] Rhoda Pina MD [address] [place] [address] Nurse Triage Social History Tobacco Use Types [...] Telephone Encounter - Sabine Gray RN - 03/18/2025 12:56 PM EDT Triage call Pt reports a reddened area on left side of neck with 2 white dots in it. Pt denies, itchiness, pain, spreading, blisters. Pt is advised to observe this area for changes the next few days but, requests to be seen or will have to go to the ED. Pt is given ASK apt in [facility] 200pm 03/18/25. Pt agrees with disposition. Insurance is verified as active prior to booking. Protocol Used: Rash or Redness - Localized (Adult) Protocol-Based Disposition: See in Office or Video Visit Today Video visit not offered Positive Triage Questions: * Patient wants to be seen * Mild localized rash * All higher-acuity triage questions were negative Care Advice Discussed: * Reassurance and Education - Mild Localized Rash * Wash the Area * Cold Pack for Mild Itching or Mild Pain * Hydrocortisone Cream for Itching * Reasons To Call Back - Rash spreads or becomes worse - Rash lasts longer than 1 week - You become worse * Telephone Encounter - Rebekah Barron - 03/18/2025 12:38 PM EDT Symptom: Rash or Redness on One Body Area Only Outcome: Schedule an urgent appointment (within 4 hours) or talk to a nurse or provider soon Reason: Skin is painful to touch The caller accepted this outcome. [phone] documented in this encounter Plan of Treatment Upcoming Encounters Date Type Department Care Team (Late st Contact Info) Description 08/09/2025 1:00 PM EDT Office Visit [facility] MED & PEDS [address] [place] [address] Estrellita Piper CNP [address] [place] [address] documented as of this encounter Visit Diagnoses Not on filedocumented in this encounter Additional Health Concerns Assessment Noted Time PHQ-9 Depression Total Score: 23 01/18/ 025 9:51 AM EDT documented as of this encounter Care Teams Jacquard Loom Fixer Relationship Specialty Start Date End Date Rhoda Pina MD [address] [place] [address] PCP - General Family Medicine 10/19/12 06/12/25 Estrellita Piper CNP [address] [place] [address] PCP - General Family Medicine 06/13/25 documented as of this encounter
--- OUTSIDE RECORDS SUMMARY | 2025-07-25 06:40 | XMS_ITS | Encounter Summary ---
Author Organization [employer] Address [address] [facility] [address] [place] [address] Care Team Providers Care Air Lift Operator Name Role Phone Estrellita Piper CNP Primary Care Provider [phone] Reason for Visit * Reason Onset Date Comments Nurse Triage 07/16/2025 Encounter Details Date Type Department Care Team (Late st Contact Info) Description 07/16/[address] [facility] MEDICINE [address] [place] [address] Estrellita Piper CNP 505 [place], [place] [phone] Nurse Triage Social History Tobacco Use Types [...] past 12 months, has t he electric, [employer], oil or water [email or web address] threatened to shut off services in your [...] encounter Miscellaneous Notes * Telephone Encounter - Nichole Zamudio RN - 07/16/2025 10:15 AM EDT called pt to triage, spoke to pt. pt states has fine, red, itchy rash all over neck x4 days. pt states has had similar in the past that went away on its own but now wants to find out what it is. pt denies known triggers, fever, spread, or other associated symptoms. given appt tomorrow with [facility] provider at 10:45 for exam. advised home care: rest, fluids, OTC anti itch cream as needed and call backif worsening or severe spread. pt understands and agrees with plan. insurance verified. pt will need TP appt as she has been reassigned pending PCP leaving. will task to team [place] to follow up and schedule. Protocol Used: Rash or Redness - Localized (Adult) Protocol-Based Disposition: See in Office or Video Visit within 3 Days Video visit offer not recorded Positive Triage Question: * Localized rash present > 7 days * All higher-acuity triage questions were negative Care Advice Discussed: * Reassurance and Education - Mild Localized Rash * Avoid the Cause * Wash the Area * Cold Pack for Mild Itching or Mild Pain * Hydrocortisone Cream for Itching * Don't Scratch * Contagiousness * Reasons To Call Back - Rash spreads or becomes worse - Rash lasts longer than 1 week - You become worse * Telephone Encounter - Jm Duke - 07/16/2025 9:53 AM EDT Symptom: Rash or Redness on One Body Area Only Outcome: Schedule an urgent appointment (within 4 hours) or talk to a nurse or provider soon Reason: Skin is painful to touch documented in this encounter Plan of Treatment Upcoming Encounters Date Type Department Care Team (Late st Contact Info) Description 08/09/2025 1:00 PM EDT Office Visit [facility] MED & PEDS [address] [place], [place] [phone] Estrellita Piper CNP [address] [place] [address] documented as of this encounter Visit Diagnoses Not on filedocumented in this encounter Additional Health Concerns Assessment Noted Time PHQ-9 Depression Total Score: 23 025 9:51 AM EDT documented as of this encounter Care Teams Air Lift Operator Relationship Specialty Start Date End Date Estrellita Piper CNP PCP - General Family Medicine 06/13/25 documented as of this encounter
--- OUTSIDE RECORDS SUMMARY | 2025-07-25 06:40 | XMS_ITS | Encounter Summary ---
Author Organization [employer] Address [address] [facility] [address] 7[address] [place] [address] Care Team Providers Care Dog Day Care Attendant Name Role Phone Rhoda Pina MD Primary Care Provider [phone] Estrellita Piper CNP Primary Care Provider [phone] Reason for Visit * Reason Onset Date Comments Referral 04/23/2024 Encounter Details Date Type Department Care Team ([facility] st Contact Info) Description 04/23/2024 Telephone [facility] MEDICINE [address] [place] [address] Rhoda Pina MD 505 [place] [address] Referral Social History Tobacco Use Types Packs/Day [...] TC from pt requesting new referral: Address: [address] [place] [address] [address], [place] [address] Facility Name: [facility] Plastic Surgery Type of Specialist: Plastic Surgeon documented in this encounter Plan of Treatment Upcoming Encounters Date Type Department Care Team ([facility] st Contact Info) Description 08/09/2025 1:00 PM EDT Office Visit [facility] MED & PEDS [address] [place], [place] [phone] Estrellita Piper CNP 505 [place] [address] documented as of this encounter Visit Diagnoses Not on filedocumented in this encounter Additional Health Concerns Assessment Noted Time PHQ-9 Depression Total Score: 18 024 9:52 AM EDT documented as of this encounter Care Teams Dog Day Care Attendant Relationship Specialty Start Date End Date Rhoda Pina MD [address] [place] [address] PCP - General Family Medicine 10/19/12 06/12/25 Estrellita Piper CNP [address] [place] [address] PCP - General Family Medicine 06/13/25 documented as of this encounter
--- OUTSIDE RECORDS SUMMARY | 2025-07-25 06:40 | XMS_ITS | Encounter Summary ---
Author Organization [employer] Address [address] [place] [address] Care Team Providers Care Pattern Ruler Name Role Phone Rhoda Pina MD Primary Care Provider [phone] Estrellita Piper CNP Primary Care Provider [phone] Reason for Visit * Reason Onset Date Comments Hospital Follow-up 09/13/2024 Encounter Details Date Type Department Care Team ([facility] Contact Info) Description 09/13/2024 Telephone [facility] MEDICINE [address] [place] [address] Rhoda Pina MD 505 [place] [address] Hospital Follow-up Social History Tobacco Use Types [...] from pt requesting a HDF appt. Hospital: Date of admission: 09/07/24 Discharge date: 09/14/24 Diagnosed: Psyche Pt was advised by nurse to call before initial discharge to request a follow up visit. Pt does not have phone at the moment advised to contact [phone]. ([facility] Psyche lead front desk agent) documented in this encounter Plan of Treatment Upcoming Encounters Date Type Department Care Team ([facility] st Contact Info) Description 08/09/2025 1:00 PM EDT Office Visit [facility] MED & PEDS [address] [place] [address] Estrellita Piper CNP 505 [place] [address] documented as of this encounter Visit Diagnoses Not on filedocumented in this encounter Additional Health Concerns Assessment Noted Time PHQ-9 Depression Total Score: 18 024 9:52 AM EDT documented as of this encounter Care Teams Pattern Ruler Relationship Specialty Start Date End Date Rhoda Pina MD [address] [place] [address] PCP - General Family Medicine 10/19/12 06/12/25 Estrellita Piper CNP [address] [place] [address] PCP - General Family Medicine 06/13/25 documented as of this encounter
--- OUTSIDE RECORDS SUMMARY | 2025-07-25 06:40 | XMS_ITS | Encounter Summary ---
Author Organization [employer] Address [address] [facility] 7t [place] [address] Care Team Providers Care Coal Mine Inspector Name Role Phone Rhoda Pina MD Primary Care Provider [phone] Estrellita Piper CNP Primary Care Provider [phone] Reason for Visit * Reason Comments Med Refill Encounter Details Date Type Department Care Team ([facility] st Contact Info) Description 03/25/2025 Refill [facility] MED & PEDS [address] [place] [address] Rhoda Pina MD 505 [place] [address] Acute back pain, unspecified back location, unspecified [...] Description 08/09/2025 1:00 PM EDT Office Visit [facility] MED & PEDS [address] [place], [place] [phone] Estrellita Piper CNP 505 [place] [address] documented as of this encounter Visit Diagnoses Diagnosis Acute back pain, unspecified back location, unspecified back pain laterality documented in this encounter Additional Health Concerns Assessment Noted Time PHQ-9 Depression Total Score: 23 025 9:51 AM EDT documented as of this encounter Care Teams Coal Mine Inspector Relationship Specialty Start Date End Date Rhoda Pina MD [address] [place] [address] PCP - General Family Medicine 10/19/12 06/12/25 Estrellita Piper CNP [address] [place] [address] PCP - General Family Medicine 06/13/25 documented as of this encounter
--- OUTSIDE RECORDS SUMMARY | 2025-07-25 06:40 | XMS_ITS | Encounter Summary ---
Author Organization [employer] Address [address] [place] [address] Care Team Providers Care Bus And Sys Integration Senior Manager Name Role Phone Rhoda Pina MD Primary Care Provider [phone] Estrellita Piper CNP Primary Care Provider [phone] Reason for Visit * Reason Onset Date Comments Nurse Triage 12/04/2024 Encounter Details Date Type Department Care Team ([facility] st Contact Info) Description 12/04/2024 Telephone [facility] MED[facility]INE [address] [place] [address] Rhoda Pina MD [address] [place] [address] Nurse Triage Social History Tobacco Use Types [...] times. Advised Pt will forward this to [facility] nursing team today for prn follow up. Pt is advised to obtain 1% hydrocortisone cream OTC for itchiness and cool baths may help. Pt agrees with home care advise and will wait to hear from [facility] . Protocol Used: Medication Question Call (Adult) [...] acuity questions The caller accepted this outcome. [phone] documented in this encounter Plan of Treatment Upcoming Encounters Date Type Department Care Team (Late st Contact Info) Description 08/09/2025 1:00 PM EDT Office Visit [facility] MED & PEDS [address] [place] [address] Estrellita Piper CNP 505 [place] [address] documented as of this encounter Visit Diagnoses Not on filedocumented in this encounter Additional Health Concerns Assessment Noted Time PHQ-9 Depression Total Score: 18 02/26/2 024 9:52 AM EDT documented as of this encounter Care Teams Bus And Sys Integration Senior Manager Relationship Specialty Start Date End Date Rhoda Pina MD [address] [place] [address] PCP - General Family Medicine 10/19/12 06/12/25 Estrellita Piper CNP [address] [place] [address] PCP - General Family Medicine 06/13/25 documented as of this encounter
--- OUTSIDE RECORDS SUMMARY | 2025-07-25 06:40 | XMS_ITS | Encounter Summary ---
Author Organization [employer] Address [address] 7[address] [place] [address] Care Team Providers Care Card Table Attendant Name Role Phone Rhoda Pina MD Primary Care Provider Estrellita Piper CNP Primary Care Provider [phone] Reason for Visit * Reason Onset Date Comments Returning Call 02/24/2024 Encounter Details Date Type Department Care Team ([facility] st Contact Info) Description 02/24/2024 Telephone [facility] MEDICINE 230 [place] [address] Rhoda Pina MD 505 [place] [address] Returning Call Social History Tobacco Use Types [...] AM EDT documented as of this encounter Functional Status * Over the past 2 weeks, how often have you been bothered by any of the following problems? Question Answer Date of Assessment Author Patient Health Questionnaire-2 Score 5 02/27/2024 9:52 AM EDT Sonya Posada [place] * If you checked off any problems on this questionnaire so far, Question Answer Date of Assessment Author How difficult have these problems made it for you to do your work, take care of things at home, or get along with other people? Very difficult 02/27/2024 9:52 AM EDT Sonya Posada [place] * Over the past 2 weeks, how often have you been bothered by any of the following problems? Question Answer Date of Assessment Author Little interest or pleasure in doing things Nearly every day 02/27/2024 9:52 AM EDT Sonya Galarza [place] Feeling down, depressed, or hopeless More than half the days 02/27/2024 9:52 AM EDT Sonya Posada [place] Trouble falling or staying asleep, or sleeping too much Several days 02/27/2024 9:52 AM EDT Sonya Posada [place] Feeling tired or having little energy Nearly every day 02/27/2024 9:52 AM EDT Sonya Posada [place] Poor appetite or overeating Not at all 02/27/2024 9:52 AM EDT Sonya Posada [place] Feeling bad about yourself - or that you are a failure or have let yourself or your family down Nearly every day 02/27/2024 9:52 AM EDT Sonya Posada [place] Trouble concentrating on things, such as reading the newspaper or watching television More than half the days 02/27/2024 9:52 AM EDT Sonya Posada [place] Moving or speaking so slowly that other people could have noticed? Or the opposite - being so fidgety or restless that you have been moving around a lot more than usual. More than half the days 02/27/2024 9:52 AM EDT Sonya Posada MA Thoughts that you would be better off or hurting yourself in some way More than half the days 02/27/2024 9:52 AM EDT Sonya Posada MA Patient Health Questionnaire-9 Score 18 02/27/2024 9:52 AM EDT Sonya Posada [place] documented as of this encounter Miscellaneous Notes * Telephone Encounter - LOBO Buenrostro - 02/24/2024 4:50 PM EDT [place] Pastor, I called the office and they said they would relay the message and give us a call back. I asked if I could speak with a social media marketing manager, and they said given that after hours no one available. Thank you for all of your help trying to get the records! * Telephone Encounter - Aneesh Liang - 02/24/2024 1:09 PM EDT Tc from [place] with [facility] calling in regards to discharge paperwork. [place] stated pt is being [facility] [facility], she provided a number to call for discharge paperwork Please contact [place] [facility] at [phone]. If any questions you can contact [facility] at [phone]. documented in this encounter Plan of Treatment Upcoming Encounters Date Type Department Care Team (Late st Contact Info) Description 08/09/2025 1:00 PM EDT Office Visit [facility] MED & PEDS [address] [place] [address] Estrellita Piper CNP 505 [place] [address] documented as of this encounter Visit Diagnoses Not on filedocumented in this encounter Care Teams Card Table Attendant Relationship Specialty Start Date End Date Rhoda Pina MD [address] [place] [address] PCP - General Family Medicine 10/19/12 06/12/25 Estrellita Piper CNP [address] [place] [address] PCP - General Family Medicine 06/13/25 documented as of this encounter
--- OUTSIDE RECORDS SUMMARY | 2025-07-25 06:40 | XMS_ITS | Encounter Summary ---
Author Organization [employer] Address [address] [facility] 7t [place] [address] Care Team Providers Care Broomcorn Grader Name Role Phone Rhoda Pina MD Primary Care Provider [phone] Estrellita Piper CNP Primary Care Provider [phone] Reason for Visit * Reason Comments Med Refill Encounter Details Date Type Department Care Team ([facility] st Contact Info) Description 03/18/2025 Refill [facility] MED & PEDS [address] [place] [address] Rhoda Pina MD 505 [place] [address] Acute back pain, unspecified back location, unspecified [...] Description 08/09/2025 1:00 PM EDT Office Visit [facility] MED & PEDS 505 [place], [place] [phone] Estrellita Piper CNP 505 [place] [address] documented as of this encounter Visit Diagnoses Diagnosis Acute back pain, unspecified back location, unspecified back pain laterality documented in this encounter Additional Health Concerns Assessment Noted Time PHQ-9 Depression Total Score: 23 025 9:51 AM EDT documented as of this encounter Care Teams Broomcorn Grader Relationship Specialty Start Date End Date Rhoda Pina MD [address] [place] [address] PCP - General Family Medicine 10/19/12 06/12/25 Estrellita Piper CNP [address] [place] [address] PCP - General Family Medicine 06/13/25 documented as of this encounter
--- OUTSIDE RECORDS SUMMARY | 2025-07-25 06:40 | XMS_ITS | Encounter Summary ---
Author Organization [employer] Address [address] [place] [address] Care Team Providers Care Boat Patcher Plastic Name Role Phone Rhoda Pina MD Primary Care Provider [phone] Estrellita Piper CNP Primary Care Provider [phone] Reason for Visit * Reason Onset Date Comments Results 06/12/2024 Encounter Details Date Type Department Care Team ([facility] st Contact Info) Description 06/12/2024 Telephone [facility] MEDICINE [address] [place] [address] Rhoda Pina MD 505 [place] [address] Results Social History Tobacco Use Types Packs/Day [...] Description 08/09/2025 1:00 PM EDT Office Visit [facility] MED & PEDS [address] [place] [address] Estrellita Piper CNP [address] [place] [address] documented as of this encounter Visit Diagnoses Not on filedocumented in this encounter Additional Health Concerns Assessment Noted Time PHQ-9 Depression Total Score: 18 024 9:52 AM EDT documented as of this encounter Care Teams Boat Patcher Plastic Relationship Specialty Start Date End Date Rhoda Pina MD [address] [place] [address] PCP - General Family Medicine 10/19/12 06/12/25 Estrellita Piper CNP [address] [place] [address] PCP - General Family Medicine 06/13/25 documented as of this encounter
--- OUTSIDE RECORDS SUMMARY | 2025-07-25 06:40 | XMS_ITS | Encounter Summary ---
Author Organization [employer] Address [address] 7[address] [place] [address] Care Team Providers Care Meteorology Teacher Name Role Phone Rhoda Pina MD Primary Care Provider [phone] Estrellita Piper CNP Primary Care Provider [phone] Reason for Visit * Reason Onset Date Comments Nurse Triage 08/03/2024 Encounter Details Date Type Department Care Team ([facility] st Contact Info) Description 08/03/2024 Telephone [facility] MEDICINE [address] [place] [address] Rhoda Pina MD 505 [place] [address] Nurse Triage Social History Tobacco Use Types [...] [facility] MED & PEDS [address] [place] [address] Estrellita Piper CNP [address] [place] [address] documented as of this encounter Visit Diagnoses Not on filedocumented in this encounter Additional Health Concerns Assessment Noted Time PHQ-9 Depression Total Score: 18 024 9:52 AM EDT documented as of this encounter Care Teams Meteorology Teacher Relationship Specialty Start Date End Date Rhoda Pina MD 230 [place] [address] PCP - General Family Medicine 10/19/12 06/12/25 Estrellita Piper CNP [address] [place] [address] PCP - General Family Medicine 06/13/25 documented as of this encounter
--- OUTSIDE RECORDS SUMMARY | 2025-07-25 06:40 | XMS_ITS | Encounter Summary ---
Author Organization [employer] Address [address] [place] [address] Care Team Providers Care Event Operations Manager Name Role Phone Rhoda Pina MD Primary Care Provider [phone] Estrellita Piper CNP Primary Care Provider [phone] Reason for Visit * Reason Onset Date Comments Medication Question 08/17/2024 Encounter Details Date Type Department Care Team ([facility] st Contact Info) Description 08/17/2024 Telephone [facility] MEDICINE [address] [place] [address] Rhoda Pina MD [address] [place] [address] Medication Question Social History Tobacco Use Types [...] any questions you can contact Klaudia at [phone]. documented in this encounter Plan of Treatment Upcoming Encounters Date Type Department Care Team (Late st Contact Info) Description 08/09/2025 1:00 PM EDT Office Visit [facility] CH[facility] MED & PEDS [address] [place], [place] [phone] Estrelltia Piper CNP 505 [place], [place] [phone] documented as of this encounter Visit Diagnoses Not on filedocumented in this encounter Additional Health Concerns Assessment Noted Time PHQ-9 Depression Total Score: 18 024 9:52 AM EDT documented as of this encounter Care Teams Event Operations Manager Relationship Specialty Start Date End Date Rhoda Pina MD [address] [place], [place] [phone] PCP - General Family Medicine 10/19/12 06/12/25 Estrellita Piper CNP [address] [place], [place] [phone] PCP - General Family Medicine 06/13/25 documented as of this encounter
[2025-07-25] MEDS: Barium Sulfate Oral (Berry) 450 ML ORAL.SUSP 900 ML PO (09:28)
[2025-07-25] MEDS: iohexoL 350 MG/ML 100 ML INFUS..BTL IV (09:28)
== END 2025-07-25 06:35 | disposition home or self-care (01) ==
LOC: HO.CT 06:34
PROVIDERS: Visit Provider Emergency Medicine
DX: K59.00 Constipation, unspecified (principal); R10.32 Left lower quadrant pain
CPT/HCPCS: 74177; Q9967

== ENCOUNTER → 2025-07-25 06:43 | Outpatient (BNV) | payer MEDICARE, MEDICAID, SELFPAY | PROVIDERS: Visit Provider Radiology Diagnostic Radiology | DX: K56.41 Fecal impaction (principal) | CPT/HCPCS: 74177 ==

== ENCOUNTER 2025-08-01 13:56 | Outpatient (AMB) | payer MEDICARE, MEDICAID, SELFPAY ==
--- NOTE | 2025-08-01 14:02 | A.OFFVIS_ITS ---
Vital Signs 08/01/25 14:10 Height 5 ft 3 in Weight 189 lb BMI 33.5 BP 106/58 L Blood Pressure Location Rt brachial Position Sitting Pulse 92 Pulse Source Pulse Oximeter Pulse Oximetry (%) 97 Oxygen Delivery Method Room Air Intake Visit Reasons: garry pt Constipation LLQ pain Intake Note: Patient complex follow up for Constipation and LLQ pain, Britney alcala soto was 05/25/2023, last EGD was 05/05/2023 by Patient cc: C.O. epigastric pain and GERD despite current therapies. Service Parts Coordinator Required: No Accompanied by: Social Sciences Chair Allergies No Known Allergies Allergy (Verified 08/01/25 14:02) HPI HPI jm pt Constipation LLQ pain: Details: Patient is a 40-year-old female with PMH of bipolar, anxiety, depression, PTSD, migraine, asthma, hyperlipidemia. Last visit with RASHEEDA Reich 05/25/2023 for acid reflux Tammy presents with persistent epigastric and left upper abdominal pain, ongoing for several weeks. She reports significant constipation, with no bowel movement in approximately three to four weeks. The pain is described as present and recurrent, exacerbated by ongoing constipation. She denies recent nausea or vomiting but endorses occasional regurgitation and frequent choking episodes, mostly with solids, although she can tolerate liquids. Tammy had previous dilation and surgery for hiatal hernia (completed 10-17-2023), but recent CT reveals a new moderate to large hiatal hernia and substantial stool burden. Past endoscopy noted gastric inflammation. She is currently taking esomeprazole daily for reflux. She expresses concern about the need for colonoscopy but has no red- flag GI symptoms. No history of GI bleeding. Additionally, her CT and previous labs indicate hepatic steatosis with elevated liver enzymes, without known hepatitis or autoimmune liver disease, and she has a history of splenectomy. She denies a change in chronic medication regimen and attributes her constipation to recent changes rather than chronic conditions. Tammy reports applying Hudson Anny directly to her scalp and face using a spray bottle, motivated by preference for the scent. She denies being advised to do so by others. She now has a dry, flaky, purple rash on her scalp and face, which is attributed to this chemical exposure. She has been counseled to discontinue this practice. Patient denies: fever/chills, n/v, appetite changes, unintentional wt loss, ab pain or melena/hematochezia. Social hx: Diet: Low fiber intake, minimal food consumption, fast food, limited fruits/vegetables, dislikes water but will use flavoring outside - family hx as below PFSH Medical History (Updated 08/01/25 @ 17:29 by Brooklyn Davis CNP) Fatty liver Constipation Hereditary spherocytosis Borderline personality disorder Bipolar 2 disorder Posttraumatic stress disorder MDD (major depressive disorder), recurrent severe, without psychosis Pre-op evaluation Seasonal allergies Urinary frequency Incontinence HLD (hyperlipidemia) Clonidine overdose Polysubstance overdose Asthma Bronchitis Smoker Borderline personality disorder Bipolar disorder, unspecified B12 deficiency Anemia Migraines Cervical cancer COPD (chronic obstructive pulmonary disease) Depression Anxiety Surgical History History of esophagogastroduodenoscopy (EGD) History of bilateral tubal ligation History of total splenectomy Family History Father No problems noted. Mother No problems noted. Social History Household Members: Children and Other Housing: Apartment Do you presently have visiting nurse or other home services: No Alcohol intake: never Comment: 1:1 sitter Patient Tobacco Use Status: Former Tobacco user Tobacco use type: Cigarette Cigarette Packs Per Day: 1.5 Cigarettes Per Day: 30.0 Years Smoked: 15 Quit February 2023 e-Cigarette/Vaping Use: Former Use Second Hand Smoke Exposure: Yes Substance Use Type: Marijuana service: No Current occupational status: disabled 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 Sexual orientation: Straight/Heterosexual Review of Systems Const Reports as per HPI ENT Reports as per HPI Card Reports as per HPI Resp Reports as per HPI GI Reports as per HPI Reports as per HPI Physical Exam Vital Signs: Last Vital Signs Pulse 92 08/01/25 14:10 BP 106/58 L 08/01/25 14:10 Pulse Ox 97 08/01/25 14:10 Oxygen Delivery Method Room Air 08/01/25 14:10 BMI result Body Mass Index 33.5 Const General: healthy appearing, no acute distress and well developed Nutritional Appearance: average body habitus Orientation/consciousness: patient oriented x3 HEENT Head: Yes normal to inspection, Yes normocephalic and Yes atraumatic Face and sinus: Yes normal facial exam Eyes General: appearance normal, both eyes and all related structures Neck Neck: Yes normal visual inspection Resp Effort & Inspection: normal respiratory effort, able to speak in complete sentences, no tracheal deviation and symmetric chest movement Cardio Jugular venous distension: no JVD GI Inspection: Yes normal to inspection, No distended and Yes obesity Palpation (GI): Soft to palpation, not firm, nontender and No hepatosplenomegaly present Auscultation: normal bowel sounds Skin Other: dry, flaky with purple discoloration to sscalp General skin exam: no rashes or lesions noted Neuro General: patient oriented x3 Gait exam (Neuro): Normal gait present Psych Appearance: grossly normal Mental Status: mental status grossly normal Speech and movement: Normal speech and movement present Affect: normal affect Attitude: cooperative Thought process: Normal thought process present Thought content: Normal thought content present Insight: Good insight present (Psych) Judgement: Good judgement present (Psych) Results Reviewed Results Reviewed: Date of Service: 07/25/25 Procedure(s): CT abdomen pelvis w IV con Accession Number(s): [id number] cc: KALEIGH COCHRAN MD; Physician,Unknown ~ Report Number: [id number]: Total DLP = 597.00 mGy-cm Reason for Exam: CONSTIPATION X 4 WEEKS,NO STOOL IN RECTUM,LLQ PAIN EXAMINATION: CT ABDOMEN PELVIS WITH IV CONTRAST HISTORY: CONSTIPATION X 4 WEEKS, NO STOOL IN RECTUM, LLQ PAIN COMPARISON: There are no prior studies for available comparison. TECHNIQUE: CT scan of the abdomen and pelvis was performed following administration of 85 mL Omnipaque 350 using standard departmental protocol. Coronal and sagittal reformatted images were generated and reviewed. The patient received oral contrast material. This CT exam was performed with one or more of the following dose reduction techniques: automated exposure control, adjustment of the mA and/or kV according to patient size, use of iterative reconstruction technique. DLP: 597 mGy-cm FINDINGS: LOWER CHEST: The visualized lung bases are clear. There is no pleural effusion. CARDIOVASCULATURE: The heart is normal in size. There is no pericardial effusion. LIVER: The liver is normal in size and contour, but demonstrates diffusely decreased attenuation, consistent with steatosis. There is focal fatty sparing adjacent to the gallbladder.. No liver mass is identified. The hepatic and portal veins are patent. GALLBLADDER / BILE DUCTS: The gallbladder is unremarkable. There is no intra or extrahepatic biliary ductal dilatation. SPLEEN: The spleen is surgically absent. PANCREAS: The pancreas is unremarkable in appearance. ADRENAL GLANDS: Within normal limits. KIDNEYS/RETROPERITONEUM: No renal calculi are identified. There is no hydronephrosis. No renal masses are identified. LYMPH NODES: No abdominal or pelvic lymphadenopathy. VASCULATURE: The abdominal aorta is normal in caliber. MESENTERY/PERITONEUM: No free fluid. No masses. There is no free intraperitoneal gas. STOMACH: There is a moderate hiatal hernia. Postsurgical changes are noted at the GE junction. SMALL BOWEL: The small bowel is normal in caliber. COLON: There is a very large amount of stool in the ascending and transverse colon. The descending and sigmoid colon are collapsed. No obvious mass is seen. APPENDIX: Normal. URINARY BLADDER/PELVIC ORGANS: The urinary bladder is unremarkable. The uterus and ovaries are unremarkable. BONES / SOFT TISSUES: No suspicious bony or soft tissue abnormalities. CT/CT abdomen pelvis w IV con IMPRESSION: 1. Very large amount of stool in the ascending and transverse colon with collapse of the descending and sigmoid colon. No obvious mass is seen. Colonoscopy is suggested if this has not recently been performed. 2. Hepatic steatosis. 3. Moderate hiatal hernia. Operative Note Date of Service: 05/05/23 Narrative: Procedure Description: EGD Indication: dysphagia Anesthesia: MAC FLEXIBLE TRANSORAL UPPER GASTROINTESTINAL ENDOSCOPY UPPER ENDOSCOPY Consent: Indications for the procedure and potential complications of bleeding, perforation, reaction to medications and missed diagnosis were discussed with the patient and informed consent was obtained. Instrument: Olympus GIF H 190 J mid size upper endoscope Monitoring: Vital signs and clinical assessment, continuous EKG monitoring, Pulse oximetry, Carbon Dioxide monitoring and blood pressure monitoring were done throughout the procedure. Procedure: The patient was placed in the left lateral decubitis position and pre-procedure medications were administered and a bite block was placed. The endoscope was inserted into the mouth and advanced under direct vision to the third part of duodenum. A careful inspection was made as the upper endoscope was withdrawn including a retroflexed examination of the proximal stomach; Findings and interventions are described below. Findings: Larynx:normal Esophagus: GE junction at 31 cm, diaphragm hiatus at 36 cm, consistent with fixed hiatal hernia, with streaky erythema noted in the hiatal sac. bx taken from distal and proximal esophagus. LES and UES stretched with CRE balloon to 19 mm, no tears seen. Stomach: Patchy gastric erythema. Biopsies were obtained. Grade 2 flap valve on retroflexed examination of the cardia. Duodenum: Normal bulb and descending duodenum, Intervention: Biopsies as noted above, balloon dilation Impression/Findings: hiatal hernia gastritis PLAN: reflux precautions if agrees referal for hernia repair confirm compliance with PPI and correct self administration PATHOlOGY Collected: 05/05/23 Location: [facility] Received: 05/05/23 ADDENDUM REPORT Addendum Addendum #1 (A): Immunostain for H. pylori is negative with appropriate control. Electronically Signed By: Jennifer Rouse 05/12/23 [id number] Diagnosis A. Gastric biopsy: Gastric antral mucosa with reactive changes and minimal chronic inactive gastritis; negative for intestinal metaplasia and dysplasia (see comment). B. Esophagus, distal, biopsy: Squamous epithelium with mild spongiosis and focal intraepithelial neutrophils consistent with esophagitis; no columnar mucosa present (see comment). C. Esophagus, proximal, biopsy: Squamous epithelium with mild spongiosis and rare intraepithelial neutrophils consistent with esophagitis; no columnar mucosa present (see comment). Comment: (A): Immunostain for H. pylori is pending; addendum to follow. (B and C): Fungal stains pending; addendum to follow. A lesion deep to these biopsies cannot be excluded and endoscopic correlation is necessary. Clinical History Pre-Op Dx: GERD Post-Op Dx: Hiatal hernia, gastritis, esophageal stricture Assessment & Plan Assessment & Plan (1) Acid reflux: Comment: 04/15/2023 EGD-hiatal hernia, gastritis, balloon dilation Code(s): K21.9 - Gastro-esophageal reflux disease without esophagitis Category: Medical Qualifiers: Esophagitis presence: without esophagitis Qualified Code(s): K21.9 - Gastro-esophageal reflux disease without esophagitis Plan: Ongoing reflux symptoms despite PPI, dysphagia with solids, prior endoscopic evidence of esophagitis Additional Testing: - Consider EGD if symptoms persist after constipation management and surgery referral; defer until stool burden resolves Medication Management: - Continue esomeprazole - Reinforce correct timing (before first meal) Lifestyle Recommendations: - Avoid late meals, caffeine, chocolate, citrus, tomato-based products - Weight optimization Follow-Up: - As above; monitor for any red flag symptoms (weight loss, vomiting, GI bleeding) (2) Constipation: Code(s): K59.00 - Constipation, unspecified Category: Medical Qualifiers: Constipation type: unspecified constipation type Qualified Code(s): K59.00 - Constipation, unspecified Plan: CT with significant stool retention, no BM for 3?4 weeks, symptoms of bloating and abdominal pain. Additional Testing: None immediately; monitor response to bowel regimen. Medication Management: - Magnesium citrate ? bottle PO now, repeat in 24h if no BM - Miralax PO daily PRN until normal BM - Stool softener/laxative combo two tablets PO qHS PRN Lifestyle Recommendations: - Increase dietary fiber (fruits, vegetables, beans) - Encourage oral hydration (water, flavored if not fasting) - Resume/maintain regular eating schedule as tolerated Follow-Up: - RTC in ~1-2 week or sooner to assess response; expedite if no BM or worsening symptoms (3) Hiatal hernia with gastroesophageal reflux: Code(s): K44.9 - Diaphragmatic hernia without obstruction or gangrene; K21.9 - Gastro- esophageal reflux disease without esophagitis Category: Medical Plan: New moderate/large hernia on CT, persistent reflux and dysphagia. Additional Testing: Surgical evaluation for repeat repair; coordinate with general surgery or preferred institution Medication Management: - Continue esomeprazole daily before breakfast - PRN antacid as needed Lifestyle Recommendations: - Manage constipation aggressively to avoid exacerbating reflux - Continue head-of-bed elevation, avoid trigger foods - Weight optimization Follow-Up: - GI follow-up in ~2 week; surgical referral for evaluation (4) Fatty liver: Code(s): K76.0 - Fatty (change of) liver, not elsewhere classified Category: Medical Plan: Imaging and prior labs show fatty infiltration, elevated LFTs, risk factors (possible obesity, ?pre-DM, ?dyslipidemia) Additional Testing: - Fasting labs: CMP, liver panel, cholesterol profile, hepatitis screening, consider autoimmune markers Medication Management: - Care Tech on benefits of statin; patient declines - Readdress at next visit Lifestyle Recommendations: - Encourage modest weight loss if overweight - Limit saturated fats, simple sugars - Encourage physical activity within tolerance Follow-Up: - Repeat labs after fasting - Close follow-up to reassess liver status (5) Contact dermatitis: Code(s): L25.9 - Unspecified contact dermatitis, unspecified cause Category: Medical Qualifiers: Contact dermatitis type: irritant Contact dermatitis trigger: other chemical product Qualified Code(s): L24.5 - Irritant contact dermatitis due to other chemical products Plan: Direct application of Hudson Anny to scalp/skin, presents as rash/irritation Additional Testing: None indicated Medication Management: Not started; activities counselor to discontinue all non-medical topical agents Lifestyle Recommendations: - Stop use of Hudson Anny on skin/hair - Use gentle skin cleansers only Follow-Up: Reassess rash at next visit; sooner if worsening Plan Follow-up in 2 weeks or sooner as needed Time: I spent a total of 45 minutes on the date of encounter which includes: Preparing to see the patient (reviewed previous documentation, test results and medical history) Performing a medically appropriate exam and/or evaluation Ordering medications, tests, and procedures Documenting clinical information in the health record Orders: Orders Mitochondrial Antibody Today K76.0 - Fatty (change of) liver, not elsewhere classified Ferritin Today K76.0 - Fatty (change of) liver, not elsewhere classified Smooth Muscle Antibody Today K76.0 - Fatty (change of) liver, not elsewhere classified EAMON Reflex Titer and Pattern Today K76.0 - Fatty (change of) liver, not elsewhere classified Lipase Today K76.0 - Fatty (change of) liver, not elsewhere classified Comprehensive Met. Panel Today K76.0 - Fatty (change of) liver, not elsewhere classified Transglutaminase IgA Today K59.00 - Constipation, unspecified, K76.0 - Fatty (change of) liver, not elsewhere classified Prothrombin Time INR Today K76.0 - Fatty (change of) liver, not elsewhere classified Hepatitis A,B,C Profile Today K76.0 - Fatty (change of) liver, not elsewhere classified Referrals General Surgery Referral K21.9 - Gastro-esophageal reflux disease without esophagitis, K44.9 - Diaphragmatic hernia without obstruction or gangrene Medications: New magnesium citrate drink 150mL half, if no bowel movement in 24 hours finish bottle 300 mL PO ONCE 296 mL 0RF polyethylene glycol 3350 (Miralax) Take 17G (one cap full) daily with 8oz of water 17 grams PO DAILY 510 grams 2RF constipation 30 days sennosides-docusate sodium 8.6-50 mg (Senna Plus) Take two tablets at bedtime as needed for constipation 2 tab-caps (2 x 8.6-50 mg) PO BEDTIME PRN 180 caps 1RF constipation Refilled esomeprazole magnesium 40 mg PO DAILY@0630 30 caps 0RF Coding Level of Care Code Established Pt Est Pt Level 5 (66475) Patient Type Established Diagnoses Gastroesophageal reflux disease without esophagitis K21.9 Esophagitis presence: without esophagitis Constipation, unspecified constipation type K59.00 Constipation type: unspecified constipation type Hiatal hernia with gastroesophageal reflux K44.9; K21.9 Fatty liver K76.0 Irritant contact dermatitis due to other chemical products L24.5 Contact dermatitis type: irritant Contact dermatitis trigger: other chemical product
[2025-08-01 14:10] VITALS: BP 106/58; PULSE 92; O2SAT 97; BMI 33.5
--- OUTSIDE RECORDS SUMMARY | 2025-08-01 18:26 | XMS_ITS | Encounter Summary ---
Author Organization [employer] Address [address] [place] [address] Care Team Providers Care Cake Inspector Name Role Phone Rhoda Pina MD Primary Care Provider [phone] Estrellita Piper CNP Primary Care Provider [phone] Reason for Visit * Reason Onset Date Comments Hospital Follow-up 09/13/2024 Encounter Details Date Type Department Care Team ([facility] Contact Info) Description 09/13/2024 Telephone [facility] MEDICINE [address] [place] [address] Rhoda Pina MD [address] [place] [address] Hospital Follow-up Social History Tobacco Use Types [...] from pt requesting a HDF appt. Hospital: [facility] Date of admission: 09/07/24 Discharge date: 09/14/24 Diagnosed: Psyche Pt was advised by nurse to call before initial discharge to request a follow up visit. Pt does not have phone at the moment advised to contact [phone]. ([facility] Psyche vest front presser) documented in this encounter Plan of Treatment Upcoming Encounters Date Type Department Care Team ([facility] st Contact Info) Description 08/09/2025 1:00 PM EDT Office Visit [facility] MED & PEDS [address] [place] [address] Estrellita Piper CNP [address] [place] [address] documented as of this encounter Visit Diagnoses Not on filedocumented in this encounter Additional Health Concerns Assessment Noted Time PHQ-9 Depression Total Score: 18 024 9:52 AM EDT documented as of this encounter Care Teams Cake Inspector Relationship Specialty Start Date End Date Rhoda Pina MD [address] [place] [id number] PCP - General Family Medicine 10/19/12 06/12/25 Estrellita Piper CNP [address] [place] [address] PCP - General Family Medicine 06/13/25 documented as of this encounter
--- OUTSIDE RECORDS SUMMARY | 2025-08-01 18:26 | XMS_ITS | Encounter Summary ---
Author Organization [employer] Address [address] [place] [address] Care Team Providers Care Soaking Pits Supervisor Name Role Phone Rhoda Pina MD Primary Care Provider [phone] Estrellita Piper CNP Primary Care Provider [phone] Reason for Visit * Reason Onset Date Comments Medication Question 08/17/2024 Encounter Details Date Type Department Care Team ([facility] st Contact Info) Description 08/17/2024 Telephone [facility] MEDICINE [address] [place] [address] Rhoda Pina MD [address] [place] [address] Medication Question Social History Tobacco Use Types [...] any questions you can contact Klaudia at [phone]. documented in this encounter Plan of Treatment Upcoming Encounters Date Type Department Care Team (Late st Contact Info) Description 08/09/2025 1:00 PM EDT Office Visit [facility] MED & PEDS [address] [place], [place] [phone] Estrellita Piper CNP [address] [place], [place] [phone] documented as of this encounter Visit Diagnoses Not on filedocumented in this encounter Additional Health Concerns Assessment Noted Time PHQ-9 Depression Total Score: 18 024 9:52 AM EDT documented as of this encounter Care Teams Soaking Pits Supervisor Relationship Specialty Start Date End Date hRoda Pina MD [address] [place], [place] [phone] PCP - General Family Medicine 10/19/12 06/12/25 Estrellita Piper CNP [address] [place], [place] [phone] PCP - General Family Medicine 06/13/25 documented as of this encounter
--- OUTSIDE RECORDS SUMMARY | 2025-08-01 18:26 | XMS_ITS | Encounter Summary ---
Author Organization [employer] Address [address] [place] [address] Care Team Providers Care Telegraph Editor Name Role Phone Rhoda Pina MD Primary Care Provider [phone] Estrellita Piper CNP Primary Care Provider [phone] Encounter Details Date Type Department Care Team (Late st Contact Info) Description 02/13/2025 Orders Only [facility] MED & PEDS [address] [place] [address] ProviderRanulfo MD Social History Tobacco Use Types [...] 1:00 PM EDT Office Visit [facility] MED & PEDS [address] [place], [place] [phone] Estrellita Piper CNP [address] [place], [place] [phone] documented as of this encounter Procedures Procedure [...] documented as of this encounter Care Teams Telegraph Editor Relationship Specialty Start Date End Date Rhoda Pina MD [address] [place] [address] PCP - General Family Medicine 10/19/12 06/12/25 Estrellita Piper CNP [address] [place] [address] PCP - General Family Medicine 06/13/25 documented as of this encounter
--- OUTSIDE RECORDS SUMMARY | 2025-08-01 18:26 | XMS_ITS | Encounter Summary ---
Author Organization [employer] Address [address] [place] [address] [address] [place] [address] Care Team Providers Care Gas Operation Manager Name Role Phone Rhoda Pina MD Primary Care Provider [phone] Estrellita Piper CNP Primary Care Provider [phone] Reason for Visit * Reason Onset Date Comments Hospital Follow-up 10/20/2023 Encounter Details Date Type Department Care Team (Late Contact Info) Description 10/20/2023 Telephone [facility] MED & PEDS [address] [place], [place] [phone] Rhoda Pina MD [address] [place] [address] Hospital Follow-up Social History Tobacco Use Types [...] appointment. Pt [facility] and[facility]charged on 10/19. Diagnosed with gastroesophageal reflux disease Please contact jenny at [phone] documented in this encounter Plan of Treatment Upcoming Encounters Date Type Department Care Team (Late Contact Info) Description 08/09/2025 1:00 PM EDT Office Visit [facility] MED & PEDS [address] [place] [address] Estrellita Piper CNP [address] [place] [address] documented as of this encounter Visit Diagnoses Not on filedocumented in this encounter Care Teams Gas Operation Manager Relationship Specialty Start Date End Date Rhoda Pina MD [address] [place] [id number] PCP - General Family Medicine 10/19/12 06/12/25 Estrellita Piper CNP [address] [place] [phone] PCP - General Family Medicine 06/13/25 documented as of this encounter
--- OUTSIDE RECORDS SUMMARY | 2025-08-01 18:26 | XMS_ITS | Encounter Summary ---
Author Organization [employer] Address [address] 7t [place] [address] Care Team Providers Care Accredited Pharmacy Technician Name Role Phone Rhoda Pina MD Primary Care Provider [phone] Estrellita Piper CNP Primary Care Provider [phone] Reason for Visit * Reason Onset Date Comments Hospital Follow-up 02/10/2024 Encounter Details Date Type Department Care Team ([facility] Contact Info) Description 02/10/2024 Telephone [facility] MEDICINE 230 [place] [address] Rhoda Pina MD 505 [place] [address] Hospital Follow-up Social History Tobacco Use Types [...] from pt requesting a HDF appt. Hospital: [facility] Date of admission: 02/04 Discharge date: 02/08 Diagnosed: Psych documented in this encounter Plan of Treatment Upcoming Encounters Date Type Department Care Team (Late st Contact Info) Description 08/09/2025 1:00 PM EDT Office Visit [facility] MED & PEDS 505 [place] [address] Estrellita Piper CNP 505 [place] [address] documented as of this encounter Visit Diagnoses Not on filedocumented in this encounter Care Teams Accredited Pharmacy Technician Relationship Specialty Start Date End Date Rhoda Pina MD [address] [place] [address] PCP - General Family Medicine 10/19/12 06/12/25 Estrellita Piper CNP 230 [place] [address] PCP - General Family Medicine 06/13/25 documented as of this encounter
--- OUTSIDE RECORDS SUMMARY | 2025-08-01 18:26 | XMS_ITS | Clinical Summary ---
Author Organization [facility] Address [address] [place], [place] [id number] Phone Care Team Providers Care Surveying Technician Name Role Phone Rhoda Pina MD Primary Care Provider [phone] Allergies No known active allergies Medications albuterol [...] topic Medical Devices Not on file Insurance [facility] MEDICARE PART A & B [place] & B [facility] MEDICARE PART A & B Care Teams Surveying Technician Relationship Specialty Start Date End Date Rhoda Pina MD [address] [place] [address] PCP - General Family Medicine 05/07/24 Additional Source Comments The information contained in this document represents components of the legal health record. It is not the complete legal health record.[facility]
--- OUTSIDE RECORDS SUMMARY | 2025-08-01 18:26 | XMS_ITS | Encounter Summary ---
Author Organization [employer] Address [address] 7t [place] [address] Care Team Providers Care Accounting Support Specialist Name Role Phone Rhoda Pina MD Primary Care Provider [phone] Estrellita Piper CNP Primary Care Provider [phone] Reason for Visit * Reason Onset Date Comments Results 06/12/2024 Encounter Details Date Type Department Care Team ([facility] st Contact Info) Description 06/12/2024 Telephone [facility] MEDICINE 230 [place] [address] Rhoda Pina MD 505 [place] [address] Results Social History Tobacco Use Types Packs/Day [...] 08/09/2025 1:00 PM EDT Office Visit [facility] MED & PEDS 505 [place] [address] Estrellita Piper CNP 505 [place] [address] documented as of this encounter Visit Diagnoses Not on filedocumented in this encounter Additional Health Concerns Assessment Noted Time PHQ-9 Depression Total Score: 18 024 9:52 AM EDT documented as of this encounter Care Teams Accounting Support Specialist Relationship Specialty Start Date End Date Rhoda Pina MD [address] [place] [address] PCP - General Family Medicine 10/19/12 06/12/25 Estrellita Piper CNP 230 [place] [address] PCP - General Family Medicine 06/13/25 documented as of this encounter
--- OUTSIDE RECORDS SUMMARY | 2025-08-01 18:26 | XMS_ITS | Clinical Summary ---
Author Organization [facility], Address [address] [place] [address] [place] [address] Phone Care Team Providers Care Picker And Packer Name Role Phone Rhoda Pina MD Primary Care Provider Allergies No known active allergies Medications acetaminophen [...] 2025 Insurance Medicare Medicaid [place] Care Teams Picker And Packer Relationship Specialty Start Date End Date Rhoda Pina MD [address] [place] [address] PCP - General Family Medicine 02/21/20
--- OUTSIDE RECORDS SUMMARY | 2025-08-01 18:26 | XMS_ITS | Encounter Summary ---
Author Organization [employer] Address [address] [facility] 7t [place] [address] Care Team Providers Care Corporate Aircraft Mechanic Name Role Phone Rhoda Pina MD Primary Care Provider [phone] Estrellita Piper CNP Primary Care Provider [phone] Reason for Visit * Reason Comments Med Refill Encounter Details Date Type Department Care Team ([facility] Contact Info) Description 09/26/2024 Refill [facility] MED & PEDS 505 [place] [address] Rhoda Pina MD 505 [place] [address] Acute back pain, unspecified back location, unspecified [...] 1:00 PM EDT Office Visit [facility] MED & PEDS 505 [place], [place] [phone] Estrellita Piper CNP 505 [place] [address] documented as of this encounter Visit Diagnoses Diagnosis Acute back pain, unspecified back location, unspecified back pain laterality documented in this encounter Additional Health Concerns Assessment Noted Time PHQ-9 Depression Total Score: 18 024 9:52 AM EDT documented as of this encounter Care Teams Corporate Aircraft Mechanic Relationship Specialty Start Date End Date Rhoda Pina MD 230 [place] [address] PCP - General Family Medicine 10/19/12 06/12/25 Estrellita Piper CNP 230 [place] [address] PCP - General Family Medicine 06/13/25 documented as of this encounter
--- OUTSIDE RECORDS SUMMARY | 2025-08-01 18:26 | XMS_ITS | Encounter Summary ---
Author Organization [employer] Address [address] 7t [place] [address] Care Team Providers Care Streetcar Conductor Name Role Phone Rhoda Pina MD Primary Care Provider [phone] Estrellita Piper CNP Primary Care Provider [phone] Reason for Visit * Reason Onset Date Comments New Med Request 01/22/2025 Encounter Details Date Type Department Care Team ([facility] st Contact Info) Description 01/22/2025 Telephone [facility] MEDICINE 230 [place] [address] Rhoda Pina MD 505 [place] [address] New Med Request Social History Tobacco Use [...] Description 08/09/2025 1:00 PM EDT Office Visit [facility] MED & PEDS 505 [place] [address] Estrellita Piper CNP 505 [place] [address] documented as of this encounter Visit Diagnoses Not on filedocumented in this encounter Additional Health Concerns Assessment Noted Time PHQ-9 Depression Total Score: 23 025 9:51 AM EDT documented as of this encounter Care Teams Streetcar Conductor Relationship Specialty Start Date End Date Rhoda Pina MD 230 [place] [address] PCP - General Family Medicine 10/19/12 06/12/25 Estrellita Piper CNP 230 [place] [address] PCP - General Family Medicine 06/13/25 documented as of this encounter
--- OUTSIDE RECORDS SUMMARY | 2025-08-01 18:26 | XMS_ITS | Encounter Summary ---
Author Organization [employer] Address [address] 7t [place] [address] Care Team Providers Care Assayer Helper Name Role Phone Rhoda Pina MD Primary Care Provider [phone] Estrellita Piper CNP Primary Care Provider [phone] Reason for Visit * Reason Onset Date Comments Hospital Follow-up 04/30/2025 Encounter Details Date Type Department Care Team ([facility] Contact Info) Description 04/30/2025 Telephone [facility] MEDICINE 230 [place] [address] Rhoda Pina MD 505 [place] [address] Hospital Follow-up Social History Tobacco Use Types [...] from pt requesting a HDF appt. Hospital: [facility] Date of admission: 04/23/25 Discharge date: 05/01/25 Diagnosed: PTSD, BP, Anxiety, and ADHD Chen states pt will only be available tomorrow because on Tuesday she will turn herself in for 10 day incarceration and will be available after 05/13. Please contact Chen at [phone]. documented in this encounter Plan of Treatment Upcoming Encounters Date Type Department Care Team (Late st Contact Info) Description 08/09/2025 1:00 PM EDT Office Visit [facility] MED & PEDS 505 [place] [address] Estrellita Piper CNP 505 [place] [address] documented as of this encounter Visit Diagnoses Not on filedocumented in this encounter Additional Health Concerns Assessment Noted Time PHQ-9 Depression Total Score: 23 025 9:51 AM EDT documented as of this encounter Care Teams Assayer Helper Relationship Specialty Start Date End Date Rhoda Pina MD [address] [place] [address] PCP - General Family Medicine 10/19/12 06/12/25 Estrellita Piper CNP 230 [place] [address] PCP - General Family Medicine 06/13/25 documented as of this encounter
--- OUTSIDE RECORDS SUMMARY | 2025-08-01 18:26 | XMS_ITS | Encounter Summary ---
Author Organization [employer] Address [address]t [place] [address] Care Team Providers Care Quality Assurance Monitor Body Name Role Phone Rhoda Pina MD Primary Care Provider [phone] Estrellita Piper CNP Primary Care Provider [phone] Reason for Visit * Reason Onset Date Comments Nurse Triage 08/03/2024 Encounter Details Date Type Department Care Team ([facility] st Contact Info) Description 08/03/2024 Telephone [facility] MEDICINE 230 [place] [address] Rhoda Pina MD 505 [place] [address] Nurse Triage Social History Tobacco Use Types [...] 1:00 PM EDT Office Visit [facility] MED & PEDS 505 [place] [address] Estrellita Piper CNP 505 [place] [address] documented as of this encounter Visit Diagnoses Not on filedocumented in this encounter Additional Health Concerns Assessment Noted Time PHQ-9 Depression Total Score: 18 024 9:52 AM EDT documented as of this encounter Care Teams Quality Assurance Monitor Body Relationship Specialty Start Date End Date Rhoda Pina MD 230 [place] [address] PCP - General Family Medicine 10/19/12 06/12/25 Estrellita Piper CNP 230 [place] [address] PCP - General Family Medicine 06/13/25 documented as of this encounter
--- OUTSIDE RECORDS SUMMARY | 2025-08-01 18:26 | XMS_ITS | Encounter Summary ---
Author Organization [employer] Address [address] 7t [place] [address] Care Team Providers Care Granite Setter Name Role Phone Rhoda Pina MD Primary Care Provider Estrellita Piper CNP Primary Care Provider [phone] Reason for Visit * Reason Onset Date Comments Nurse Triage 03/18/2025 Encounter Details Date Type Department Care Team ([facility] st Contact Info) Description 03/18/2025 Telephone [facility] MEDICINE 230 [place] [address] Rhoda Pina MD 505 [place] [address] Nurse Triage Social History Tobacco Use Types [...] ED. Pt is given ASK apt in [facility] 200pm 03/18/25. Pt agrees with disposition. [...] to touch The caller accepted this outcome. [phone] documented in this encounter Plan of Treatment Upcoming Encounters Date Type Department Care Team (Late st Contact Info) Description 08/09/2025 1:00 PM EDT Office Visit [facility] MED & PEDS 505 [place] [address] Estrellita Piper CNP 505 [place] [address] documented as of this encounter Visit Diagnoses Not on filedocumented in this encounter Additional Health Concerns Assessment Noted Time PHQ-9 Depression Total Score: 23 01/18/ 025 9:51 AM EDT documented as of this encounter Care Teams Granite Setter Relationship Specialty Start Date End Date Rhoda Pina MD 230 [place] [address] PCP - General Family Medicine 10/19/12 06/12/25 Estrellita Piper CNP [address] [place] [address] PCP - General Family Medicine 06/13/25 documented as of this encounter
--- OUTSIDE RECORDS SUMMARY | 2025-08-01 18:26 | XMS_ITS | Encounter Summary ---
Author Organization [employer] Address [address] 7t [place] [address] Care Team Providers Care Child Protection Specialist Name Role Phone Rhoda Pina MD Primary Care Provider [phone] Estrellita Piper CNP Primary Care Provider [phone] Reason for Visit * Reason Onset Date Comments Referral 04/23/2024 Encounter Details Date Type Department Care Team ([facility] st Contact Info) Description 04/23/2024 Telephone [facility] MEDICINE 230 [place] [address] Rhoda Pina MD 505 [place] [address] Referral Social History Tobacco Use Types Packs/Day [...] TC from pt requesting new referral: Address: [address] [place] [address] [address], [place] [address] Facility Name: [facility] Plastic Surgery Type of Specialist: Plastic Surgeon documented in this encounter Plan of Treatment Upcoming Encounters Date Type Department Care Team ([facility] st Contact Info) Description 08/09/2025 1:00 PM EDT Office Visit [facility] MED & PEDS 505 [place], [place] [phone] Estrellita Piepr CNP 505 [place] [address] documented as of this encounter Visit Diagnoses Not on filedocumented in this encounter Additional Health Concerns Assessment Noted Time PHQ-9 Depression Total Score: 18 024 9:52 AM EDT documented as of this encounter Care Teams Child Protection Specialist Relationship Specialty Start Date End Date Rhoda Pina MD 230 [place] [address] PCP - General Family Medicine 10/19/12 06/12/25 Estrellita Piper CNP 230 [place] [address] PCP - General Family Medicine 06/13/25 documented as of this encounter
--- OUTSIDE RECORDS SUMMARY | 2025-08-01 18:26 | XMS_ITS | Encounter Summary ---
Author Organization [employer] Address [address] [place] [address] 7t [place] [address] Care Team Providers Care Band Edger Name Role Phone Rhoda Pina MD Primary Care Provider [phone] Estrellita Piper CNP Primary Care Provider [phone] Reason for Visit * Reason Onset Date Comments Triage 01/25/2023 Encounter Details Date Type Department Care Team ([facility] Contact Info) Description 01/25/2023 Telephone [facility] MED & PEDS 505 [place] [address] Rhoda Pina MD 505 [place] [address] Triage Social History Tobacco Use Types Packs/Day [...] today at 3pm with Dr. Morales at [facility]. Protocol Used: COVID-19 - Diagnosed or [...] accepted this outcome Please contact pt at [phone] documented in this encounter Plan of Treatment Upcoming Encounters Date Type Department Care Team (Late st Contact Info) Description 08/09/2025 1:00 PM EDT Office [facility] MED & PEDS 505 [place] [address] Estrellita Piper CNP 505 [place] [address] documented as of this encounter Visit Diagnoses Not on filedocumented in this encounter Care Teams Band Edger Relationship Specialty Start Date End Date Rhoda Pina MD 230 [place] [address] PCP - General Family Medicine 10/19/12 06/12/25 Estrellita Piper CNP 230 [place] [address] PCP - General Family Medicine 06/13/25 documented as of this encounter
--- OUTSIDE RECORDS SUMMARY | 2025-08-01 18:26 | XMS_ITS | Encounter Summary ---
Author Organization [employer] Address [address] [facility] 7t [place] [address] Care Team Providers Care Design/Animation Instructor Name Role Phone Rhoda Pina MD Primary Care Provider [phone] Estrellita Piper CNP Primary Care Provider [phone] Reason for Visit * Reason Comments Med Refill Encounter Details Date Type Department Care Team ([facility] st Contact Info) Description 03/25/2025 Refill [facility] MED & PEDS 505 [place] [address] Rhoda Pina MD 505 [place] [address] Acute back pain, unspecified back location, unspecified [...] 1:00 PM EDT Office Visit [facility] MED & PEDS 505 [place], [place] [phone] Estrellita Piper CNP 505 [place] [address] documented as of this encounter Visit Diagnoses Diagnosis Acute back pain, unspecified back location, unspecified back pain laterality documented in this encounter Additional Health Concerns Assessment Noted Time PHQ-9 Depression Total Score: 23 025 9:51 AM EDT documented as of this encounter Care Teams Design/Animation Instructor Relationship Specialty Start Date End Date Rhoda Pina MD 230 [place] [address] PCP - General Family Medicine 10/19/12 06/12/25 Estrellita Piper CNP [address] [place] [address] PCP - General Family Medicine 06/13/25 documented as of this encounter
--- OUTSIDE RECORDS SUMMARY | 2025-08-01 18:26 | XMS_ITS | Encounter Summary ---
Author Organization [employer] Address [address] [facility] 7t [place] [address] Care Team Providers Care Vault Manager Name Role Phone Rhoda Pina MD Primary Care Provider [phone] Estrellita Piper CNP Primary Care Provider [phone] Reason for Visit * Reason Onset Date Comments Hospital Follow-up 12/12/2023 Encounter Details Date Type Department Care Team ([facility] Contact Info) Description 12/12/2023 Telephone [facility] MED & PEDS 505 [place] [address] Rhoda Pina MD 505 [place] [address] Hospital Follow-up Social History Tobacco Use Types [...] from pt requesting a HDF appt. Hospital: [facility] Date of admission: 12/02 Discharge date: 12/07 Diagnosed: Bipolar disorder Please contact pt at [phone] documented in this encounter Plan of Treatment Upcoming Encounters Date Type Department Care Team (Late st Contact Info) Description 08/09/2025 1:00 PM EDT Office Visit [facility] MED & PEDS 505 [place], [place] [phone] Estrellita Piper CNP 505 [place] [address] documented as of this encounter Visit Diagnoses Not on filedocumented in this encounter Care Teams Vault Manager Relationship Specialty Start Date End Date Rhoda Pina MD [address] [place] [address] PCP - General Family Medicine 10/19/12 06/12/25 Estrellita Piper CNP 230 [place] [address] PCP - General Family Medicine 06/13/25 documented as of this encounter
--- OUTSIDE RECORDS SUMMARY | 2025-08-01 18:26 | XMS_ITS | Encounter Summary ---
Author Organization [employer] Address [address]t [place] [address] Care Team Providers Care Mattress Finisher Name Role Phone Rhoda Pina MD Primary Care Provider [phone] Estrellita Piper CNP Primary Care Provider [phone] Reason for Visit * Reason Onset Date Comments Returning Call 02/24/2024 Encounter Details Date Type Department Care Team ([facility] st Contact Info) Description 02/24/[address] [facility] MEDICINE [address] [place] [address] Rhoda Pina MD 505 [place] [address] Returning Call Social History Tobacco Use Types [...] asked if I could speak with a sales strategy manager, and they said given that after hours no one available. Thank you for all of your help trying to get the records! * Telephone Encounter - Aneesh Liang - 02/24/2024 1:09 PM EDT Tc from [facility] with [facility] calling in regards to discharge paperwork. [facility] stated pt [facility], she provided a number to call for discharge paperwork Please contact [facility] at [phone]. If any questions you can contact Maricruz at [phone]. documented in this encounter Plan of Treatment Upcoming Encounters Date Type Department Care Team (Late st Contact Info) Description 08/09/2025 1:00 PM EDT Office Visit [facility] MED & PEDS 505 [place] [address] Estrellita Piper CNP 505 [place] [address] documented as of this encounter Visit Diagnoses Not on filedocumented in this encounter Care Teams Mattress Finisher Relationship Specialty Start Date End Date Rhoda Pina MD 230 [place] [address] PCP - General Family Medicine 10/19/12 06/12/25 Estrellita Piper CNP 230 [place] [address] PCP - General Family Medicine 06/13/25 documented as of this encounter
--- OUTSIDE RECORDS SUMMARY | 2025-08-01 18:26 | XMS_ITS | Encounter Summary ---
Author Organization [employer] Address [address] [place] [address] Care Team Providers Care Reconciliation Coordinator Name Role Phone Estrellita Piper CNP Primary Care Provider [phone] Reason for Visit * Reason Onset Date Comments Nurse Triage 07/16/2025 Encounter Details Date Type Department Care Team (Late st Contact Info) Description 07/16/2025 Telephone [facility] MEDICINE 230 [place] [address] Estrellita Piper CNP 505 [place], [place] [phone] Nurse Triage Social History Tobacco Use Types [...] past 12 months, has t he electric, [employer], oil or water [employer] threatened to shut off services in your [...] Description 08/09/2025 1:00 PM EDT Office Visit [facility] MED & PEDS 505 [place], [place] [phone] Estrellita Piper CNP 505 [place] [address] documented as of this encounter Visit Diagnoses Not on filedocumented in this encounter Additional Health Concerns Assessment Noted Time PHQ-9 Depression Total Score: 23 025 9:51 AM EDT documented as of this encounter Care Teams Reconciliation Coordinator Relationship Specialty Start Date End Date Estrellita Piper CNP PCP - General Family Medicine 06/13/25 documented as of this encounter
--- OUTSIDE RECORDS SUMMARY | 2025-08-01 18:26 | XMS_ITS | Encounter Summary ---
Author Organization [employer] [facility] [employer] Address [address] [place] [address] Care Team Providers Care Consulting Networking Engineer Name Role Phone Rhoda Pina MD Primary Care Provider [phone] Estrellita Piper CNP Primary Care Provider [phone] Reason for Visit * Reason Onset Date Comments Appointment Request 12/12/2023 Encounter Details Date Type Department Care Team ([facility] st Contact Info) Description 12/12/2023 Telephone [facility] MEDICINE 230 [place] [address] Rhoda Pina MD 505 [place] [address] Appointment Request Social History Tobacco Use Types [...] [facility] calling to reschedule appt for 12/08/2022 auto service writer did explain there is no availability at the moment documented in this encounter Plan of Treatment Upcoming Encounters Date Type Department Care Team (Late st Contact Info) Description 08/09/2025 1:00 PM EDT Office Visit [facility] MED & PEDS 505 [place] [address] Estrellita Piper CNP 505 [place] [address] documented as of this encounter Visit Diagnoses Not on filedocumented in this encounter Care Teams Consulting Networking Engineer Relationship Specialty Start Date End Date Rhoda Pina MD [address] [place] [address] PCP - General Family Medicine 10/19/12 06/12/25 Estrellita Piper CNP [address] [place] [address] PCP - General Family Medicine 06/13/25 documented as of this encounter
--- OUTSIDE RECORDS SUMMARY | 2025-08-01 18:26 | XMS_ITS | Encounter Summary ---
Author Organization [employer] Address [address] [facility] [address] [facility] [address] 7t [place] [address] Care Team Providers Care Director Work Name Role Phone Rhoda Pina MD Primary Care Provider Estrellita Piper CNP Primary Care Provider [phone] Reason for Visit * Reason Onset Date Comments Hospital Follow-up 12/21/2024 Encounter Details Date Type Department Care Team ([facility] Contact Info) Description 12/21/2024 Telephone [facility] [address] [place] [address] Rhoda Pina MD [address] [place] [address] Hospital Follow-up Social History Tobacco Use Types [...] from pt requesting a HDF appt. Hospital: [facility] Date of admission: 12/17 Discharge date: 12/21 Diagnosed: Bi polar Disorder *Send message to Soha Clinical Care Coordinators Contact pt at [phone] documented in this encounter Plan of Treatment Upcoming Encounters Date Type Department Care Team (Late st Contact Info) Description 08/09/2025 1:00 PM EDT Office Visit [facility] MED & PEDS [address] [place] [address] Estrellita Piper CNP [address] [place] [address] documented as of this encounter Visit Diagnoses Not on filedocumented in this encounter Additional Health Concerns Assessment Noted Time PHQ-9 Depression Total Score: 18 024 9:52 AM EDT documented as of this encounter Care Teams Director Work Relationship Specialty Start Date End Date Rhoda Pina MD [address] [place] [address] PCP - General Family Medicine 10/19/12 06/12/25 Estrellita Piper CNP [address] [place] [address] PCP - General Family Medicine 06/13/25 documented as of this encounter
--- OUTSIDE RECORDS SUMMARY | 2025-08-01 18:26 | XMS_ITS | Encounter Summary ---
Author Organization [employer] Address [address] [place] [address] 7t [place] [address] Care Team Providers Care Director University Name Role Phone Rhoda Pina MD Primary Care Provider [phone] Estrellita Piper CNP Primary Care Provider [phone] Reason for Visit * Reason Onset Date Comments Results 11/08/2023 Encounter Details Date Type Department Care Team ([facility] Contact Info) Description 11/08/2023 Telephone [facility] MED & PEDS [address] [place], [place] [id number] Rhoda Pina MD [address] [place] [address] Results Social History Tobacco Use Types Packs/Day [...] be faxed. Labs printed and faxed to [phone]. Once results are received she will review [...] in messages prior. Please contact pt at [phone]. * Telephone Encounter - Eliza Fox RN - 11/08/2023 11:11 AM EST Please review message below and advise on lab results and next steps. * Telephone Encounter - Cari Reid - 11/08/2023 10:20 AM EST Tc from pt requesting a call back from a nurse to speak about some blood work results just receivedon portal. Please contact pt @ [phone] documented in this encounter Plan of Treatment Upcoming Encounters Date Type Department Care Team ([facility] st Contact Info) Description 08/09/2025 1:00 PM EDT Office Visit [facility] MED & PEDS [address] [place] [address] Estrellita Piper, GABY [address] [place] [address] documented as of this encounter Visit Diagnoses Not on filedocumented in this encounter Care Teams Director University Relationship Specialty Start Date End Date Rhoda Pina MD [address] [place] [address] PCP - General Family Medicine 10/19/12 06/12/25 Estrellita Piper CNP [address] [place] [address] PCP - General Family Medicine 06/13/25 documented as of this encounter
--- OUTSIDE RECORDS SUMMARY | 2025-08-01 18:26 | XMS_ITS | Encounter Summary ---
Author Organization [employer] Address [address] [place] [address] Care Team Providers Care Center Machine Set Up Operator Name Role Phone Rhoda Pina MD Primary Care Provider [phone] Estrellita Piper CNP Primary Care Provider [phone] Reason for Visit * Reason Onset Date Comments Nurse Triage 12/04/2024 Encounter Details Date Type Department Care Team ([facility] st Contact Info) Description 12/04/[address] [facility] MED[facility]INE [address] [place] [address] Rhoda Pina MD [address] [place] [address] Nurse Triage Social History Tobacco Use Types [...] times. Advised Pt will forward this to [facility] nursing team today for prn follow up. Pt is advised to obtain 1% hydrocortisone cream OTC for itchiness and cool baths may help. Pt agrees with home care advise and will wait to hear from [facility] . Protocol Used: Medication Question Call (Adult) [...] acuity questions The caller accepted this outcome. [phone] documented in this encounter Plan of Treatment Upcoming Encounters Date Type Department Care Team (Late st Contact Info) Description 08/09/2025 1:00 PM EDT Office Visit [facility] MED & PEDS [address] [place] [address] Estrellita Piper CNP [address] [place] [address] documented as of this encounter Visit Diagnoses Not on filedocumented in this encounter Additional Health Concerns Assessment Noted Time PHQ-9 Depression Total Score: 18 02/26/2 024 9:52 AM EDT documented as of this encounter Care Teams Center Machine Set Up Operator Relationship Specialty Start Date End Date Rhoda Pina MD [address] [place] [address] PCP - General Family Medicine 10/19/12 06/12/25 Estrellita Piper CNP [address] [place] [address] PCP - General Family Medicine 06/13/25 documented as of this encounter
--- OUTSIDE RECORDS SUMMARY | 2025-08-01 18:26 | XMS_ITS | Clinical Summary ---
Author Organization [employer] Address [address] [facility] 7t [place] [address] Care Team Providers Care Pressroom Supervisor Name Role Phone Estrellita Piper MEDIA INTERN Primary Care Provider [phone] Allergies No known active allergies Medications * This document contains information received from the source organization and may not represent a complete record from that organization. docusate sodium (Colace) 100 MG capsule Take 2 capsules (200 mg) by mouth if needed at bedtime for constipation. 180 capsule 1 03/28/20 23 Active albuterol (2.5 MG/3ML) 0.083% nebulizer solutionIndicat ions:COPD with acute exacerbation (CMS/[facility]) Take 3 mL (2.5 mg) by nebulization [...] Center 01/27/2023 10:00 AM Rhoda Pina MD [facility] Thrombocytopenia 05/14/2013 Assessment & Plan (03/17/2024 2:09 PM EDT): Hx of thrombocytopenia and hereditary spherocytosis following with [facility] Heme/Onc Pt requesting repeat of CBC and iron studies today, placed Encounters Date Type Department Care Team Description 07/25/2025 Results Follow-Up [facility]S [address] [place] [address] Abdomen Pelvis w/ Contrast 07/17/2025 10:45 AM EDT Office Visit [facility] [address] [place] [address] Estrellita Piper CNP Dermatitis (Primary Dx) 07/17/2025 Travel 07/16/2025 Telephone [facility] MEDICINE [address] [place] [address] Estrellita Piper CNP Nurse Triage 07/11/2025 Refill [facility]S [address] [place] [address] Rhoda Pina MD 06/25/2025 10:30 AM EDT Telemedicine [facility] [address] [place] [address] Brigido Perry MD Acute back pain, unspecified back location, unspecified back pain laterality 06/06/2025 Telephone [facility] MEDICINE [address] [place] [address] Rhoda Pina MD FYI 06/06/2025 Telephone [facility] MEDICINE [address] [place] [address] Rhoda Pina MD Med Refill; Medication Question 05/30/2025 1:00 PM EDT Office Visit [facility] [address] [place] [address] Talib Cochran MD Constipation, unspecified constipation type (Primary Dx); Left lower quadrant abdominal pain 05/30/2025 Travel 05/30/2025 Telephone [facility] [address] [place], [place] [phone] Rhdoa Pina MD Nurse Triage 05/01/2025 Telephone [facility] MEDICINE [address] [place], [place] [phone] Rhoda Pina MD FYI; Call Back Request from Last 3 Months Immunizations Immunization Administration [...] Description 08/09/2025 1:00 PM EDT Office Visit [facility] MED [facility] PEDS [address] [place] [address] [facility] [place], [facility] [address] [place] [address] Health Maintenance Due Date Last Done Comments [...] 2024 SDOH Screening 02/09/2025 02/10/2024 COVID-19 Vaccine ( season) 2025 03/26/2021, 02/09/2021 Influenza Vaccine (#1) [...] Procedure Name Priority Date/Time Associated Diagnosis Comments CT ABDOMEN PELVIS W CONTRAST Urgent 07/25/2025 9:07 AM EDT Constipation, unspecified constipation type Left lower quadrant abdominal pain HM PAP/HPV Routine 01/18/2025 10:44 AM EDT LIPID PANEL, STANDARD Routine 03/02/2024 10:00 AM EDT Bipolar disorder, current episode mixed, moderate (CMS/HCC) Abnormal finding of blood chemistry, unspecified from Last 3 Months or Most Recently Relevant to Health Maintenance Results * CT Abdomen Pelvis w/ Contrast (07/25/2025 9:07 AM EDT) Anatomical Region Laterality Modality Body, Pelvis, Abdomen Computed T omography 07/25/2025 9:07 AM EDT Narrative 07/25/2025 9:45 AM EDT [address] [address] [address] Scan Report Signed Patient: Tammy Romero MR#: [id number] : 1985 Acct:[id number] Age/Sex: 40 / F ADM Date: 07/25/25 Loc: HO.CT Attending Dr: Talib Cochran MD Ordering Physician: TALIB COCHRAN MD Date of Service: 07/25/25 Procedure(s): CT abdomen pelvis w IV con Accession Number(s): [id number] cc: TALIB COCHRAN MD; Physician,Unknown Report Number: [id number]: Total DLP = 597.00 mGy-cm Reason for Exam: CONSTIPATION X 4 WEEKS,NO STOOL IN RECTUM,LLQ PAIN EXAMINATION: CT ABDOMEN PELVIS WITH IV CONTRAST HISTORY: CONSTIPATION X 4 WEEKS, NO STOOL IN RECTUM, LLQ PAIN COMPARISON: There are no prior studies for available comparison. TECHNIQUE: CT scan of the abdomen and pelvis was performed following administration of 85 mL Omnipaque 350 using standard departmental protocol. Coronal and sagittal reformatted images were generated and reviewed. The patient received oral contrast material. This CT exam was performed with one or more of the following dose reduction techniques: automated exposure control, adjustment of the mA and/or kV according to patient size, use of iterative reconstruction technique. DLP: 597 mGy-cm FINDINGS: LOWER CHEST: The visualized lung bases are clear. There is no pleural effusion. CARDIOVASCULATURE: The heart is normal in size. There is no pericardial effusion. LIVER: The liver is normal in size and contour, but demonstrates diffusely decreased attenuation, consistent with steatosis. There is focal fatty sparing adjacent to the gallbladder.. No liver mass is identified. The hepatic and portal veins are patent. GALLBLADDER / BILE DUCTS: The gallbladder is unremarkable. There is no intra or extrahepatic biliary ductal dilatation. SPLEEN: The spleen is surgically absent. PANCREAS: The pancreas is unremarkable in appearance. ADRENAL GLANDS: Within normal limits. KIDNEYS/RETROPERITONEUM: No renal calculi are identified. There is no hydronephrosis. No renal masses are identified. LYMPH NODES: No abdominal or pelvic lymphadenopathy. VASCULATURE: The abdominal aorta is normal in caliber. MESENTERY/PERITONEUM: No free fluid. No masses. There is no free intraperitoneal gas. STOMACH: There is a moderate hiatal hernia. Postsurgical changes are noted at the GE junction. SMALL BOWEL: The small bowel is normal in caliber. COLON: There is a very large amount of stool in the ascending and transverse colon. The descending and sigmoid colon are collapsed. No obvious mass is seen. APPENDIX: Normal. URINARY BLADDER/PELVIC ORGANS: The urinary bladder is unremarkable. The uterus and ovaries are unremarkable. BONES / SOFT TISSUES: No suspicious bony or soft tissue abnormalities. CT/CT abdomen pelvis w IV con IMPRESSION: 1. Very large amount of stool in the ascending and transverse colon with collapse of the descending and sigmoid colon. No obvious mass is seen. Colonoscopy is suggested if this has not recently been performed. 2. Hepatic steatosis. 3. Moderate hiatal hernia. Electronically signed by: Karan Ridley MD 07/25/2025 09:43 AM EDT Dictated By: Karan Ridley MD Signed By: <Electronically signed by Karan Ridley MD in OV> 07/25/25 0943 DD/ 0907 TD/TT: 07/25/25 0931 Mail Service Coordinator: Procedure Note Donotuseinterpreter, Image - 07/25/[address] [address] [address] Scan Report Signed Patient: Tammy Romero LMR#: [id number] : 1985Acct:[id number] Age/Sex: 40 / FADM Date: 07/25/25 Loc: HO.CT Attending Dr: Talib Cochran MD Ordering Physician: TALIB COCHRAN MD Date of Service: 07/25/25 Procedure(s): CT abdomen pelvis w IV con Accession Number(s): [id number] cc: TALIB COCHRAN MD; Physician,Unknown Report Number: [id number]: Total DLP = 597.00 mGy-cm Reason for Exam: CONSTIPATION X 4 WEEKS,NO STOOL IN RECTUM,LLQ PAIN EXAMINATION: CT ABDOMEN PELVIS WITH IV CONTRAST HISTORY: CONSTIPATION X 4 WEEKS, NO STOOL IN RECTUM, LLQ PAIN COMPARISON: There are no prior studies for available comparison. TECHNIQUE: CT scan of the abdomen and pelvis was performed following administration of 85 mL Omnipaque 350 using standard departmental protocol. Coronal and sagittal reformatted images were generated and reviewed. The patient received oral contrast material. This CT exam was performed with one or more of the following dose reduction techniques: automated exposure control, adjustment of the mA and/or kV according to patient size, use of iterative reconstruction technique. DLP: 597 mGy-cm FINDINGS: LOWER CHEST: The visualized lung bases are clear. There is no pleural effusion. CARDIOVASCULATURE: The heart is normal in size. There is no pericardial effusion. LIVER: The liver is normal in size and contour, but demonstrates diffusely decreased attenuation, consistent with steatosis. There is focal fatty sparing adjacent to the gallbladder.. No liver mass is identified. The hepatic and portal veins are patent. GALLBLADDER / BILE DUCTS: The gallbladder is unremarkable. There is no intra or extrahepatic biliary ductal dilatation. SPLEEN: The spleen is surgically absent. PANCREAS: The pancreas is unremarkable in appearance. ADRENAL GLANDS: Within normal limits. KIDNEYS/RETROPERITONEUM: No renal calculi are identified. There is no hydronephrosis. No renal masses are identified. LYMPH NODES: No abdominal or pelvic lymphadenopathy. VASCULATURE: The abdominal aorta is normal in caliber. MESENTERY/PERITONEUM: No free fluid. No masses. There is no free intraperitoneal gas. STOMACH: There is a moderate hiatal hernia. Postsurgical changes are noted at the GE junction. SMALL BOWEL: The small bowel is normal in caliber. COLON: There is a very large amount of stool in the ascending and transverse colon. The descending and sigmoid colon are collapsed. No obvious mass is seen. APPENDIX: Normal. URINARY BLADDER/PELVIC ORGANS: The urinary bladder is unremarkable. The uterus and ovaries are unremarkable. BONES / SOFT TISSUES: No suspicious bony or soft tissue abnormalities. CT/CT abdomen pelvis w IV con IMPRESSION: 1. Very large amount of stool in the ascending and transverse colon with collapse of the descending and sigmoid colon. No obvious mass is seen. Colonoscopy is suggested if this has not recently been performed. 2. Hepatic steatosis. 3. Moderate hiatal hernia. Electronically signed by: Karan Ridley MD 07/25/2025 09:43 AM EDT RP Dictated By: Karan Ridley MD Signed By: <Electronically signed by Karan Ridley MD in OV> 07/25/25942 DD/ 6 TD/TT: 07/25/25930 Mail Service Coordinator: Talib Cochran MD IMG CT PROCEDURES Edited Result - Final * HM PAP/HPV (01/18/2025 10:44 AM EDT) Historical Provider HEALTH MAINTENANCE Final Result * (ABNORMAL) Lipid Panel, Standard (03/02/2024 10:00 AM EDT) Triglycerides 175(H) <150 mg/dL [facility] Comment:Desirable Triglyceri de: less than 150 mg/dLBorderline High Triglyceride 150-199 mg/dLHigh Triglyceride: 200-499 mg/dLVery High Triglyceride: greater than or equal to 5OO mg/dL Cholesterol 216(H) <200 mg/dL [facility] Comment:Desirable Cholestero l: less than 200 mg/dLBorderline High Cholesterol: 200-239 mg/dLHigh Cholesterol: greater than 239 mg/dL LDL Cholesterol Calculated 131(H) <100 mg/dL [facility] Comment:Desirable LDL: less than 100 mg/dLNear Optimal/Above Optimal LDL: 110- 129 mg/dLBorderline High LDL: 130-159 mg/dLHigh LDL: 160-189 mg/dLVery High LDL: greater than or equal to 190 mg/dL HDL Cholesterol 50 >40 mg/dL [facility] Comment:Desirable HDL: great er than 40 mg/dL Note: This HDL assay may give artificially low results in patients with liver disease. Blood Venous blood specimen / Unknown 03/02/2024 10:00 AM EDT 03/02/2024 10:00 AM EDT us Beronica Suzannabaljit KENNEL MANAGER LAB BLOOD ORDERABLES Final Res ult [facility] [address] [place] [address] [phone] from Last 3 Months or Most Recently Relevant to Health Maintenance Insurance [facility] STANDARD [place] [id number] Care Teams Pressroom Supervisor Relationship Specialty Start Date End Date Estrellita Piper CNP PCP - General Family Medicine 06/13/25
--- OUTSIDE RECORDS SUMMARY | 2025-08-01 18:26 | XMS_ITS | Encounter Summary ---
Author Organization [employer] Address [address] [place] [address] Care Team Providers Care Fire Alarm Dispatcher Name Role Phone Rhoda Pina MD Primary Care Provider [phone] Estrellita Piper CNP Primary Care Provider [phone] Reason for Visit * Reason Onset Date Comments FYI 12/18/2024 Encounter Details Date Type Department Care Team ([facility] st Contact Info) Description 12/18/[address] [facility] MEDICINE [address] [place] [address] Rhoda Pina MD [address] [place] [address] Social History Tobacco Use Types Packs/Day Years [...] 1:00 PM EDT Office Visit [facility] MED & PEDS [address] [place] [address] Estrellita Piper CNP [address] [place] [address] documented as of this encounter Visit Diagnoses Not on filedocumented in this encounter Additional Health Concerns Assessment Noted Time PHQ-9 Depression Total Score: 18 024 9:52 AM EDT documented as of this encounter Care Teams Fire Alarm Dispatcher Relationship Specialty Start Date End Date Rhoda Pina MD [address] [place] [address] PCP - General Family Medicine 10/19/12 06/12/25 Estrellita Piper CNP [address] [place] [address] PCP - General Family Medicine 06/13/25 documented as of this encounter
--- OUTSIDE RECORDS SUMMARY | 2025-08-01 18:26 | XMS_ITS | Encounter Summary ---
Author Organization [employer] Address [address] [facility] 7t [place] [address] Care Team Providers Care Felt Finishing Supervisor Name Role Phone Rhoda Pina MD Primary Care Provider [phone] Estrellita Piper CNP Primary Care Provider [phone] Reason for Visit * Reason Comments Med Refill Encounter Details Date Type Department Care Team ([facility] st Contact Info) Description 03/18/2025 Refill [facility] MED & PEDS [address] [place] [address] Rhoda Pina MD [address] [place] [address] Acute back pain, unspecified back location, unspecified [...] [facility] [address] [place], [place] [phone] Estrellita Piper CNP [address] [place] [address] documented as of this encounter Visit Diagnoses Diagnosis Acute back pain, unspecified back location, unspecified back pain laterality documented in this encounter Additional Health Concerns Assessment Noted Time PHQ-9 Depression Total Score: 23 025 9:51 AM EDT documented as of this encounter Care Teams Felt Finishing Supervisor Relationship Specialty Start Date End Date Rhoda Pina MD [address] [place] [address] PCP - General Family Medicine 10/19/12 06/12/25 Estrellita Piper CNP [address] [place] [address] PCP - General Family Medicine 06/13/25 documented as of this encounter
== END 2025-08-01 15:01 | disposition home or self-care (01) ==
LOC: HO.HGI 13:57
PROVIDERS: Visit Provider Nurse Practitioner Family
DX: K21.9 Gastro-esophageal reflux disease without esophagitis (principal); K59.00 Constipation, unspecified; K76.0 Fatty (change of) liver, not elsewhere classified; L24.5 Irritant contact dermatitis due to other chemical products
CPT/HCPCS: 99215

== ENCOUNTER → 2025-08-01 13:56 | Outpatient (BNVA) | payer MEDICARE, MEDICAID, SELFPAY | PROVIDERS: Visit Provider Nurse Practitioner Family | DX: K21.9 Gastro-esophageal reflux disease without esophagitis (principal); K59.00 Constipation, unspecified; K44.9 Diaphragmatic hernia without obstruction or gangrene; K76.0 Fatty (change of) liver, not elsewhere classified; L24.5 Irritant contact dermatitis due to other chemical products; Z87.891 Personal history of nicotine dependence | CPT/HCPCS: 99212 ==

== ENCOUNTER 2025-08-21 11:34 | Outpatient (AMB) | payer MEDICARE, MEDICAID, SELFPAY ==
--- NOTE | 2025-08-21 11:38 | A.OFFVIS_ITS ---
Vital Signs 08/21/25 11:39 Height 5 ft 3 in Weight 190 lb BMI 33.7 BP 118/58 L Blood Pressure Location Rt brachial Position Sitting Pulse 86 Pulse Source Pulse Oximeter Pulse Oximetry (%) 99 Oxygen Delivery Method Room Air Intake Visit Reasons: 2wk Intake Note: Patient follow up for chronic constipation/no lab results Patient cc: Pt reports that she was unable to obtain any of her new GI medications per a discrepancy with her insurance company. Pt reports having CT scan done since last visit which had shown a hernia, wants to discuss this with provider. Multimedia Journalist Required: No Accompanied by: Self / Same As Patient Allergies No Known Allergies Allergy (Verified 08/21/25 11:38) HPI HPI 2wk: Details: Patient is a 40-year-old female with PMH of bipolar, anxiety, depression, PTSD, migraine, asthma, hyperlipidemia. F/u for persistent constipation, prior severe symptoms; ongoing concerns w/ incomplete BM, hard stools, and inconsistent frequency. Pt reports incomplete relief since last visit. Used mag citrate as instructed after 08/01; resulted in one BM but states continued difficulty initiating and passing stool, hard consistency, and requires forceful straining. Did obtain Miralax but not taking daily, but modest effect w/ tried single dose. Denies use of prescribed combo senna-stool softeners not started as insurance denied fills. Denies overt blood on tissue or in stool, no recurrent lower abd pain except transient discomfort after laxative (resolved spontaneously). Admits minimal oral intake, mostly processed foods, low fiber. Reports occasional controlled reflux on PPI when able to obtain Rx. Ongoing use of [place]-Anny topically, with skin irritation noted. She denies oral ingestion. Independent living maintained, limited external support. Seeking new therapist; agrees to coordinate care. No ER/urgent care visits, no hospitalizations. [facility] Medical History Fatty liver Constipation Hereditary spherocytosis Borderline personality disorder Bipolar 2 disorder Posttraumatic stress disorder MDD (major depressive disorder), recurrent severe, without psychosis Pre-op evaluation Seasonal allergies Urinary frequency Incontinence HLD (hyperlipidemia) Clonidine overdose Polysubstance overdose Asthma Bronchitis Smoker Borderline personality disorder Bipolar disorder, unspecified B12 deficiency Anemia Migraines Cervical cancer COPD (chronic obstructive pulmonary disease) Depression Anxiety Surgical History History of esophagogastroduodenoscopy (EGD) History of bilateral tubal ligation History of total splenectomy Family History Father No problems noted. Mother No problems noted. Social History Household Members: Children and Other Housing: Apartment Do you presently have visiting nurse or other home services: No Alcohol intake: never Comment: 1:1 sitter Patient Tobacco Use Status: Former Tobacco user Tobacco use type: Cigarette Cigarette Packs Per Day: 1.5 Cigarettes Per Day: 30.0 Years Smoked: 15 Quit February 2023 e-Cigarette/Vaping Use: Former Use Second Hand Smoke Exposure: Yes Substance Use Type: Marijuana service: No Current occupational status: disabled 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 Sexual orientation: Straight/Heterosexual Review of Systems Const Reports as per HPI ENT Reports as per HPI Card Reports as per HPI Resp Reports as per HPI GI Reports as per HPI Reports as per HPI Physical Exam Vital Signs: Last Vital Signs Pulse 86 08/21/25 11:39 BP 118/58 L 08/21/25 11:39 Pulse Ox 99 08/21/25 11:39 Oxygen Delivery Method Room Air 08/21/25 11:39 BMI result Body Mass Index 33.7 Const General: healthy appearing, no acute distress and well developed Nutritional Appearance: average body habitus Orientation/consciousness: patient oriented x3 HEENT Head: Yes normal to inspection, Yes normocephalic and Yes atraumatic Face and sinus: Yes normal facial exam Eyes General: appearance normal, both eyes and all related structures Neck Neck: Yes normal visual inspection Resp Effort & Inspection: normal respiratory effort, able to speak in complete sentences, no tracheal deviation and symmetric chest movement Cardio Jugular venous distension: no JVD GI Inspection: Yes normal to inspection, No distended and Yes obesity Palpation (GI): Soft to palpation, not firm, nontender and No hepatosplenomegaly present Auscultation: normoactive bowel sounds Skin Other: Forehead and anterior scalp?erythema, scaling, dry; minimal irritation, peeling; no open sores (to areas visible) Rashes: rashes noted (see above) Neuro General: patient oriented x3 Gait exam (Neuro): Normal gait present Psych Appearance: grossly normal Mental Status: mental status grossly normal Speech and movement: Normal speech and movement present Affect: normal affect Attitude: cooperative Thought process: Normal thought process present Thought content: Normal thought content present Insight: Good insight present (Psych) Judgement: Good judgement present (Psych) Assessment & Plan Assessment & Plan (1) Constipation: Code(s): K59.00 - Constipation, unspecified Category: Medical Qualifiers: Constipation type: unspecified constipation type Qualified Code(s): K59.00 - Constipation, unspecified Plan: Ongoing, suboptimal control. Infrequent, hard BMs; nonadherence to daily osmotic laxatives; minimal dietary fiber. possible behavioral barriers. Additional testing: None at this time unless new concerning sx develop. Medications: - Miralax (PEG 3350) PO daily?reinforced titration to soft, regular stool. - Docusate sodium PO HS (stool softener)?new Rx. - DC senna/Senna-S combo per pt request/preference. - Mag citrate PRN for no BM x 3d, reinforce not for regular use d/t side effects. Lifestyle Recommendations: - Diet: Increase fruits, vegetables, beans; favor frozen over canned; limit highly processed foods. - Hydration: Encourage adequate fluid intake. - Education: Provided dietary guidance and instructed on safe OTC fiber alternatives. - Advised pt to avoid straining/pushing; limit <5min per attempt. Referrals / Coordination: - No new referrals. Continue w/ pharmacy for med fill; social support as available. Follow-Up: - 2 months; sooner PRN for worsening sx, new rectal bleeding, or obstipation. (2) Hiatal hernia with gastroesophageal reflux: Code(s): K44.9 - Diaphragmatic hernia without obstruction or gangrene; K21.9 - Gastro- esophageal reflux disease without esophagitis Category: Medical Plan: Stable, rare reflux sx controlled on PPI (when available/used); prior dilation and repair. Additional testing: Awaiting general surgery consult as referral previously ordered. Medications: Continue/renew PPI as needed for reflux, monitor Rx fill issues. Lifestyle: Small, frequent meals; avoid trigger foods; elevate HOB if reflux returns. Referrals: General surg f/u pending. Follow-Up: Monitor for new/progressive GERD sx. (3) Contact dermatitis: Code(s): L25.9 - Unspecified contact dermatitis, unspecified cause Category: Medical Qualifiers: Contact dermatitis trigger: other chemical product Contact dermatitis type: irritant Qualified Code(s): L24.5 - Irritant contact dermatitis due to other chemical products Plan: Mild-moderate persistent skin irritation, improved since last visit. Rationale: Attributed to use of [place]-Anny as topical agent. Additional testing: None unless new/worsening lesions or infection. Medications: None currently. Lifestyle: Strongly advised D/C all topical [place]-Anny. Education on risks; provided info regarding safer skin care alternatives. Referrals: Continue w/ behavioral health therapist and psychiatrist to address underlying behaviors. JALEEL obtained to discuss current treatment plan. Follow-Up: Reassess next visit, coordinate w/ BH team. Plan Follow-up 2 months or sooner as needed Time: I spent a total of 30 minutes on the date of encounter which includes: Preparing to see the patient (reviewed previous documentation, test results and medical history) Performing a medically appropriate exam and/or evaluation Ordering medications, tests, and procedures Documenting clinical information in the health record Medications: New docusate sodium Take two tablets at bedtime. 200 mg (2 x 100 mg) PO BEDTIME 180 caps 3RF constipation Discontinued sennosides-docusate sodium 8.6-50 mg (Senna Plus) Take two tablets at bedtime as needed for constipation Discontinued Reason: Patient Refused 2 tab-caps (2 x 8.6-50 mg) PO BEDTIME PRN 180 caps 1RF constipation Coding Level of Care Code Established Pt Est Pt Level 3 (46598) Patient Type Established Diagnoses Constipation, unspecified constipation type K59.00 Constipation type: unspecified constipation type Hiatal hernia with gastroesophageal reflux K44.9; K21.9 Irritant contact dermatitis due to other chemical products L24.5 Contact dermatitis trigger: other chemical product Contact dermatitis type: irritant
[2025-08-21 11:39] VITALS: BP 118/58; PULSE 86; O2SAT 99; BMI 33.7
== END 2025-08-21 12:12 | disposition home or self-care (01) ==
LOC: HO.HGI 11:35
PROVIDERS: PCP Emergency Medicine; Visit Provider Nurse Practitioner Family
DX: K59.00 Constipation, unspecified (principal); K44.9 Diaphragmatic hernia without obstruction or gangrene; K21.9 Gastro-esophageal reflux disease without esophagitis; L24.5 Irritant contact dermatitis due to other chemical products
CPT/HCPCS: 99213

== ENCOUNTER → 2025-08-21 11:34 | Outpatient (BNVA) | payer MEDICARE, MEDICAID, SELFPAY | PROVIDERS: PCP Emergency Medicine; Visit Provider Nurse Practitioner Family | DX: K21.9 Gastro-esophageal reflux disease without esophagitis (principal); K44.9 Diaphragmatic hernia without obstruction or gangrene; L24.5 Irritant contact dermatitis due to other chemical products; K59.00 Constipation, unspecified | CPT/HCPCS: 99212 ==

== ENCOUNTER 2025-10-23 10:31 | Outpatient (AMB) | payer MEDICARE, MEDICAID, SELFPAY ==
--- OUTSIDE RECORDS SUMMARY | 2025-10-21 09:30 | XMS_ITS | Encounter Summary ---
Author Organization [facility] Address [address] [place] [address] Care Team Providers Care Apparatus Engineering Technologist Name Role Phone Rhoda Pina MD Primary Care Provider [phone] Reason for Visit * Reason Comments Foot Pain B/l Encounter Details Date Type Department Care Team (Late st Contact Info) Description 10/21/2025 9:30 AM EST Office Visit Orthopedic Surgery [place] [id number] [address] [place] D[facility] [address] [address] Arthritis of right ankle (Primary Dx); Right foot pain; Tendinitis of right ankle Social History Tobacco Use Types Packs/Day Years Used Date Smoking Tobacco: Never Assessed Comments Unknown Sex and Gender Information Value Date Recorded Sex Assigned at Not on file Legal Sex Female 1:29 PM EST Gender Identity Not on file Sexual Orientation Not on file documented as of this encounter Progress Notes * [place] [facility] - 10/21/2025 9:30 AM EST Location Options to have Orthotic Prescriptions Filled: [facility] [place] [address] [place] [address] P: [phone] F: [phone] * [place] [facility] - 10/21/2025 9:30 AM EST Last PCP visit:Referring MD: 07/17/2025 Dr Feliz Romero is a 40 y.o. year old female presents complaining of sharp pain in both feet she reports she is healing painful thickened nails need to hold for her to walk she states that she is unable to cut them herself due to thickness pain discomfort has been using topical medications some improvement reports worsening pain in the tops of both ankles states that she was unable to use any of the top medications states that she has used medications occasionally with some improvement of her skin andnails reports worsening pain discomfort in the arch of her right foot is achy throbbing painful to difficulty taking care of it does note that she denies any recent trauma has not been using topical anti- inflammatory previously prescribed ROS: GENERAL: Pt denies nausea, fever, vomiting, chills, or shortness of breath. Pt in NAD. CARDIOLOGY: pt denies chest pain, palpitations LUNGS: pt denies shortness of breath MUSCULOSKELETAL: See HPI, otherwise no joint pain or swelling, back pain, or muscle pain. SKIN: see HPI, otherwise no lesions, rash or itching NEURO: No persistent headache, weakness or numbness The remainder of the review of systems is noncontributory PAST MEDICAL HISTORY: There is no problem list on file for this patient. SOCIAL HISTORY: Social History Tobacco Use Smoking status: Not on file Smokeless tobacco: Not on file Substance Use Topics Alcohol use: Not on file ACTIVE MEDICATIONS: Outpatient Medications Marked as Taking for the 10/21/25 encounter (Office Visit) with [place] [facility] Medication Sig Dispense Refill albuterol sulfate 90 mcg/actuation aerosol powdr breath activated Inhale by mouth. ammonium lactate (AmLactin) 12 % lotion Apply topically if needed for dry skin. 400 g 0 ammonium lactate (AmLactin) 12 % lotion Apply topically if needed for dry skin. 400 g 0 buPROPion (WELLBUTRIN) 75 mg tablet Take 0.5 tablets (37.5 mg total) by mouth daily. diclofenac (Voltaren Arthritis Pain) 1 % topical gel Apply 4 g topically 2 (two) times a day. 240 g1 ALLERGIES: No Known Allergies PHYSICAL EXAM: There were no vitals taken for this visit. PODIATRIC EXAMINATION: GENERAL: Patient appears well nourished, with NAD. VASCULAR: Dorsalis pedis pulses are 2/4 bilaterally and Posterior tibial pulses are 2/4 bilaterally. Capillary filling time within normal limits the digits. No pallor on elevation or rubor on dependency. No varicosities. Denies rest pain or claudication pain. NEUROLOGICAL: Sharp/dull sensation intact, protective sensation intact 10/10 with Ipswitch touch test bilaterally, vibratory sensation intact to the tibial tuberosity. ORTHOPEDIC: Good muscle strength 5/5 of all flexors and extensors. Dorsi flexion of ankle ,10 degrees, plantar flexion WNL. No muscle atrophy. DERMATOLOGICAL:. Toenails: Left Toenail(s) 1-5: subungual debris, discoloration, hypertrophic, elongation, mycotic appearance, onychomycosis, pain and thickening. Right Toenail(s) 1-5: subungual debris, discoloration, hypertrophic, elongation, mycotic appearance, onychomycosis, pain and thickening. Annular scaling bilateral feet moccasin distribution Skin thinning texture shiny appearance diffuse hyperpigmentation bilaterally pedal hair decreased Extensive xerosis fissure formation both heels BIOMECHANICS: Ankle ROM WNL, STJ ROM wnl, MTJ ROM crepitation right midtarsal joint, 1st MPJ ROM wnl. Inflammation and irritation of the extensor tendons bilateral at the anterior ankle retinaculum bilateral IMAGING: IMPRESSION: 1. Arthritis of right ankle 2. Right foot pain 3. Tendinitis of right ankle PLAN: Pt was seen and examined, history reviewed. Lotrisone continue with Ammonium lactate continue with Fluconazole continue with Worsening tenderness of right foot discussed and reviewed Voltaren gel encourage patient utilize previously prescribed Referral to physical therapy offered patient declined Radiographs right foot taken reviewed mild arthritis without acute findings Follow-up in 4 to 6 weeks [place] D[facility] documented in this encounter Plan of Treatment Not on file documented as of this encounter Results * XR Foot 3+ Views Right (10/21/2025 10:19 AM EST) Anatomical Region Laterality Modality Lower Extremities, Foot Right Computed Radiography Narrative 10/21/2025 12:08 PM EST Right foot 3 views No fracture. No radiopaque foreign joint spaces normal mild midtarsal joint Foot position Pes planus with Talus navicular uncovering decreased calcaneal inclination anterior displaced symes line talus navicular joint to calcaneal cuboid joint us [place] D[facility] IMG XR PROCEDURES Final R esult documented in this encounter Visit Diagnoses Diagnosis Arthritis of right ankle- Primary Right foot pain Pain in soft tissues of limb Tendinitis of right ankle documented in this encounter Orders General Supply Count Last Ordered Date First Or dered Date FOOT ORTHOTICS 1 10/21/2025 documented in this encounter Care Teams Apparatus Engineering Technologist Relationship Specialty Start Date End Date Rhoda Pina MD [address] [place] [id number] PCP - General Family Medicine 02/07/25 documented as of this encounter
--- NOTE | 2025-10-23 10:37 | MHC.OFFVIS ---
Vital Signs 10/23/25 11:02 Height 5 ft 3 in Weight 190 lb 0.615 oz BMI 33.7 BP 164/98 H Blood Pressure Location Lt brachial Position Sitting Pulse 116 H Intake Visit Reasons: follow up constipation. Intake Note: Patient follow up for constipation. Patient cc: was finally able to have a bm this morning after 3 weeks, admits to stomach ache and abdomen hard feels hard, today woke up nauseous Parts Interpreter Required: No Accompanied by: Self / Same As Patient Allergies No Known Allergies Allergy (Verified 10/23/25 10:55) Medication List - Last Reconciled 10/23/25 by Brooklyn Davis CNP albuterol sulfate 90 mcg/actuation 2 puffs inhalation Q4H PRN albuterol sulfate 2.5 mg inhalation Q4-6H PRN ammonium lactate 12% 1 appl topical DAILY bupropion HCl XL 150 mg PO DAILY cariprazine (Vraylar) 6 mg PO DAILY clobetasol 0.05% 1 appl topical BID 2 weeks clonazepam 1 mg PO 0900,1300,2100 clonidine HCl 0.1 mg See Protocol PO 0900,1300,2100 clotrimazole-betamethasone 1-0.05 % 1 appl topical DAILY cyclobenzaprine 5 mg PO BEDTIME PRN dextroamphetamine-amphetamine 10 mg ER (Adderall XR) 30 mg (3 x 10 mg) PO DAILY@0600 dextroamphetamine-amphetamine 20 mg 1 tab PO DAILY@1200 docusate sodium 200 mg (2 x 100 mg) PO BEDTIME escitalopram oxalate 20 mg PO DAILY esomeprazole magnesium 40 mg PO DAILY@0630 gabapentin 300 mg PO BID lamotrigine 100 mg PO DAILY lithium carbonate 300 mg PO BID loratadine (Claritin) 10 mg PO DAILY mirabegron ER (Myrbetriq) 50 mg PO DAILY 90 days mirtazapine 22.5 mg (1/2 x 45 mg) PO BEDTIME polyethylene glycol 3350 (Miralax) 17 grams PO DAILY 30 days tolterodine ER 4 mg PO DAILY 90 days trazodone 50 mg PO DAILY HPI HPI follow up constipation.: Details: Patient is a 40-year-old female with PMH of bipolar, anxiety, depression, PTSD, migraine, asthma, hyperlipidemia. Follow-up on constipation. Regarding her constipation, the patient was previously instructed to take MiraLax daily and docusate at bedtime. She reports non-adherence, stating she has not been using MiraLax or the stool softener daily because she was forgetting. She had a severe episode of constipation within the last three weeks, which resolved this morning after having a very large bowel movement, and she also reported vomiting. She has used magnesium citrate in the past but not recently. For her gastroesophageal reflux, her condition was noted to be stable with rare symptoms on her current proton pump inhibitor, esomeprazole 40 mg, which she takes daily. She has noted worsening reflux symptoms when constipated and straining. The patient has a history of fatty liver with elevated liver enzymes, for which labs were ordered for further evaluation. She also has a history of contact dermatitis related to topical use of Pinesol. [facility] Medical History Fatty liver Constipation Hereditary spherocytosis Borderline personality disorder Bipolar 2 disorder Posttraumatic stress disorder MDD (major depressive disorder), recurrent severe, without psychosis Pre-op evaluation Seasonal allergies Urinary frequency Incontinence HLD (hyperlipidemia) Clonidine overdose Polysubstance overdose Asthma Bronchitis Smoker Borderline personality disorder Bipolar disorder, unspecified B12 deficiency Anemia Migraines Cervical cancer COPD (chronic obstructive pulmonary disease) Depression Anxiety Surgical History History of esophagogastroduodenoscopy (EGD) History of bilateral tubal ligation History of total splenectomy Family History Father No problems noted. Mother No problems noted. Social History Household Members: Children and Other Housing: Apartment Do you presently have visiting nurse or other home services: No Alcohol intake: never Comment: 1:1 sitter Patient Tobacco Use Status: Former Tobacco user Tobacco use type: Cigarette Cigarette Packs Per Day: 1.5 Cigarettes Per Day: 30.0 Years Smoked: Quit February 2023 e-Cigarette/Vaping Use: Former Use Second Hand Smoke Exposure: Yes Substance Use Type: Marijuana service: No Current occupational status: disabled 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 Sexual orientation: Straight/Heterosexual Review of Systems Const Reports as per HPI ENT Reports as per HPI Card Reports as per HPI Resp Reports as per HPI GI Reports as per HPI Reports as per HPI Physical Exam Vital Signs: Last Vital Signs Pulse 116 H 10/23/25 11:02 BP 164/98 H 10/23/25 11:02 BMI result Body Mass Index 33.7 Const General: healthy appearing, no acute distress and well developed Nutritional Appearance: average body habitus Orientation/consciousness: patient oriented x3 HEENT Head: Yes normal to inspection, Yes normocephalic and Yes atraumatic Face and sinus: Yes normal facial exam Eyes General: appearance normal, both eyes and all related structures Neck Neck: Yes normal visual inspection Resp Effort & Inspection: normal respiratory effort, able to speak in complete sentences, no tracheal deviation and symmetric chest movement Cardio Jugular venous distension: no JVD GI Inspection: Yes normal to inspection, No distended and Yes obesity Palpation (GI): Soft to palpation, not firm, nontender and No hepatosplenomegaly present Auscultation: normal bowel sounds Neuro General: patient oriented x3 Gait exam (Neuro): Normal gait present Psych Appearance: grossly normal Mental Status: mental status grossly normal Speech and movement: Normal speech and movement present Affect: normal affect Attitude: cooperative Thought process: Normal thought process present Thought content: Normal thought content present Insight: Good insight present (Psych) Judgement: Good judgement present (Psych) Assessment & Plan Assessment & Plan (1) Constipation: Code(s): K59.00 - Constipation, unspecified Category: Medical Qualifiers: Constipation type: unspecified constipation type Qualified Code(s): K59.00 - Constipation, unspecified Plan: The patient's recurring constipation is likely due to medication non-adherence and insufficient dietary fiber and fluid intake. - She is encouraged to take MiraLax and a stool softener daily, and can reduce the frequency if she develops loose stools. - Advised to increase fiber and water intake. - Instructed to ambulate and try again later if unable to have a bowel movement after five minutes of sitting on the toilet. (2) Acid reflux: Comment: 04/15/2023 EGD-hiatal hernia, gastritis, balloon dilation Code(s): K21.9 - Gastro-esophageal reflux disease without esophagitis Category: Medical Qualifiers: Esophagitis presence: without esophagitis Qualified Code(s): K21.9 - Gastro-esophageal reflux disease without esophagitis Plan: The patient's reflux symptoms are currently exacerbated by her constipation and associated straining. - She will continue her daily esomeprazole 40 mg. - Symptoms are expected to improve with better management of her constipation. (3) Fatty liver: Code(s): K76.0 - Fatty (change of) liver, not elsewhere classified Category: Medical Plan: The patient requires further evaluation of her fatty liver and elevated liver enzymes to assess overall liver health and rule out other underlying causes. - The plan is to proceed with previously ordered lab work, which includes hepatitis serology, lipase, PT/INR, ferritin, CMP, and celiac serology. - Orders for anti-smooth muscle and mitochondrial antibodies will be canceled. - The patient was instructed to fast before the labs are drawn. (4) Contact dermatitis: Code(s): L25.9 - Unspecified contact dermatitis, unspecified cause Category: Medical Qualifiers: Contact dermatitis trigger: other chemical product Contact dermatitis type: irritant Qualified Code(s): L24.5 - Irritant contact dermatitis due to other chemical products Plan: The patient's history of contact dermatitis from Pinesol was reviewed. - She reports she is not currently using it. - The plan is to continue monitoring. Plan Follow-up in 2 months or sooner as needed Time: I spent a total of 25 minutes on the date of encounter which includes: Preparing to see the patient (reviewed previous documentation, test results and medical history) Performing a medically appropriate exam and/or evaluation Ordering medications, tests, and procedures Documenting clinical information in the health record Orders: Orders Transglutaminase IgA Today K76.0 - Fatty (change of) liver, not elsewhere classified Coding Level of Care Code Established Pt Est Pt Level 3 (05449) Patient Type Established Diagnoses Constipation, unspecified constipation type K59.00 Constipation type: unspecified constipation type Gastroesophageal reflux disease without esophagitis K21.9 Esophagitis presence: without esophagitis Fatty liver K76.0 Irritant contact dermatitis due to other chemical products L24.5 Contact dermatitis trigger: other chemical product Contact dermatitis type: irritant
[2025-10-23 11:02] VITALS: BP 164/98; PULSE 116; BMI 33.7
--- OUTSIDE RECORDS SUMMARY | 2025-10-23 13:08 | XMS_ITS | Encounter Summary ---
Author Organization [employer] Address [address] [place] [address] 7t [place] [address] Care Team Providers Care Pedigree Researcher Name Role Phone Rhoda Pina MD Primary Care Provider [phone] Rosemarie Barahona NP Primary Care Provider [phone] Estrellita Piper CNP Primary Care Provider [phone] Reason for Visit * Reason Onset Date Comments Triage 01/25/2023 Encounter Details Date Type Department Care Team ([facility] st Contact Info) Description 01/25/2023 Telephone [facility] MED & PEDS [address] [place], [place] [id number] Rhoda Pina MD 505 [place] [address] Triage Social History Tobacco Use Types Packs/Day [...] today at 3pm with Dr. Morales at [facility]. Protocol Used: COVID-19 - Diagnosed or Suspected [...] accepted this outcome Please contact pt at [phone] documented in this encounter Plan of Treatment Upcoming Encounters Date Type Department Care Team ([facility] st Contact Info) Description 11/22/2025 10:00 AM EST Office Visit [facility] MED & PEDS [address] [place] [address] Estrellita Piper, ORACLE E BUSINESS DEVELOPER 505 [place] [address] documented as of this encounter Visit Diagnoses Not on filedocumented in this encounter Care Teams Pedigree Researcher Relationship Specialty Start Date End Date Rhoda Pina MD [address] [place] [address] PCP - General Family Medicine 10/19/12 06/12/25 Rosemarie Barahona NP [address] [place] [address] PCP - General Family Medicine 08/09/25 09/19/25 Estrellita Piper CNP [address] [place] [address] PCP - General Family Medicine 09/20/25 documented as of this encounter
--- OUTSIDE RECORDS SUMMARY | 2025-10-23 13:08 | XMS_ITS | Encounter Summary ---
Author Organization [employer] Address [address] 7[address] [place] [address] Care Team Providers Care Revenue Settlements Administrator Name Role Phone Rhoda Pina MD Primary Care Provider [phone] Rosemarie Barahona NP Primary Care Provider [phone] Estrellita Piper CNP Primary Care Provider [phone] Reason for Visit * Reason Onset Date Comments Hospital Follow-up 02/10/2024 Encounter Details Date Type Department Care Team ([facility] st Contact Info) Description 02/10/2024 Telephone [facility] MEDICINE [address] [place] [address] Rhoda Pina MD 505 [place], [place] [id number] Hospital Follow-up Social History Tobacco Use Types [...] from pt requesting a HDF appt. Hospital: [facility] Date of admission: 02/04 Discharge date: 02/08 Diagnosed: Psych documented in this encounter Plan of Treatment Upcoming Encounters Date Type Department Care Team (Late st Contact Info) Description 11/22/2025 10:00 AM EST Office Visit [facility] MED & PEDS [address] [place], [place] [phone] Estrellita Piper CNP 505 [place] [address] documented as of this encounter Visit Diagnoses Not on filedocumented in this encounter Care Teams Revenue Settlements Administrator Relationship Specialty Start Date End Date Rhoda Pina MD [address] [place] [address] PCP - General Family Medicine 10/19/12 06/12/25 Rosemarie Barahona NP [address] [place] [address] PCP - General Family Medicine 08/09/25 09/19/25 Estrellita Piper CNP 505 [place] [address] PCP - General Family Medicine 09/20/25 documented as of this encounter
--- OUTSIDE RECORDS SUMMARY | 2025-10-23 13:08 | XMS_ITS | Encounter Summary ---
Author Organization [employer] Address [address] [facility] 7t [place] [address] Care Team Providers Care Bricklayer Paving Brick Name Role Phone Rhoda Pina MD Primary Care Provider [phone] Rosemarie Barahona NP Primary Care Provider [phone] Estrellita Piper CNP Primary Care Provider [phone] Reason for Visit * Reason Comments Med Refill Encounter Details Date Type Department Care Team ([facility] st Contact Info) Description 03/25/2025 Refill [facility] CHC MED & PEDS [address] [place] [address] Rhoda Pina MD 505 [place] [address] Acute back pain, unspecified back location, unspecified [...] is your housing situation today? I have rogeliobacilio boswell 02/10/[address] you [...] Description 11/22/2025 10:00 AM EST Office Visit [facility] MED & PEDS [address] [place], [place] [phone] Estrellita Piper CNP [address] [place] [address] documented as of this encounter Visit Diagnoses Diagnosis Acute back pain, unspecified back location, unspecified back pain laterality documented in this encounter Additional Health Concerns Assessment Noted Time PHQ-9 Depression Total Score: 23 025 9:51 AM EDT documented as of this encounter Care Teams Bricklayer Paving Brick Relationship Specialty Start Date End Date Rhoda Pina MD [address] [place] [address] PCP - General Family Medicine 10/19/12 06/12/25 Rosemarie Barahona NP [address] [place], [place] [phone] PCP - General Family Medicine 08/09/25 09/19/25 Estrellita iPper CNP [address] [place], [place] [phone] PCP - General Family Medicine 09/20/25 documented as of this encounter
--- OUTSIDE RECORDS SUMMARY | 2025-10-23 13:08 | XMS_ITS | Encounter Summary ---
Author Organization [email or web address] Address [address] [facility] 7t [place] [address] Care Team Providers Care Disability Representative Name Role Phone Rosemarie Barahona HOME HOSPICE RN Primary Care Provider [phone] Estrellita Piper INSTANT PRINTER OPERATOR Primary Care Provider [phone] Reason for Visit * Reason Comments Med Refill Encounter Details Date Type Department Care Team ([facility] Contact Info) Description 08/22/2025 Refill [facility] CHC MED & PEDS [address] [place] [address] Rhoda Pina MD 505 [place] [address] Acute back pain, unspecified back location, unspecified [...] Description 11/22/2025 10:00 AM EST Office Visit [facility] MED & PEDS [address] [place] [address] Estrellita Piper CNP 505 [place] [address] documented as of this encounter Visit Diagnoses Diagnosis Acute back pain, unspecified back location, unspecified back pain laterality documented in this encounter Additional Health Concerns Assessment Noted Time PHQ-9 Depression Total Score: 23 025 9:51 AM EDT documented as of this encounter Care Teams Disability Representative Relationship Specialty Start Date End Date Rosemarie Barahona NP [address] [place] [address] PCP - General Family Medicine 08/09/25 09/19/25 Estrellita Piper CNP [address] [place] [address] PCP - General Family Medicine 09/20/25 documented as of this encounter
--- OUTSIDE RECORDS SUMMARY | 2025-10-23 13:08 | XMS_ITS | Encounter Summary ---
Author Organization [employer] Address [address] [facility] 7t [place] [address] Care Team Providers Care Engineering Drawings Checker Name Role Phone Rhoda Pina MD Primary Care Provider [phone] Rosemarie Barahona NP Primary Care Provider [phone] Estrellita Piper CNP Primary Care Provider [phone] Reason for Visit * Reason Comments Med Refill Encounter Details Date Type Department Care Team ([facility] st Contact Info) Description 03/18/2025 Refill [facility] CHC MED & PEDS [address] [place] [address] Rhoda Pina MD [address] [place] [address] Acute back pain, unspecified back location, unspecified [...] 11/22/2025 10:00 AM EST Office Visit [facility] MED & PEDS [address] [place], [place] [phone] Estrellita Piper CNP [address] [place] [address] documented as of this encounter Visit Diagnoses Diagnosis Acute back pain, unspecified back location, unspecified back pain laterality documented in this encounter Additional Health Concerns Assessment Noted Time PHQ-9 Depression Total Score: 23 025 9:51 AM EDT documented as of this encounter Care Teams Engineering Drawings Checker Relationship Specialty Start Date End Date Rhoda Pian MD [address] [place] [address] PCP - General Family Medicine 10/19/12 06/12/25 Rosemarie Barahona NP [address] [place], [place] [phone] PCP - General Family Medicine 08/09/25 09/19/25 Estrellita Piper CNP [address] [place], [place] [phone] PCP - General Family Medicine 09/20/25 documented as of this encounter
--- OUTSIDE RECORDS SUMMARY | 2025-10-23 13:08 | XMS_ITS | Encounter Summary ---
Author Organization [employer] Address [address] [facility] 7t [place] [address] Care Team Providers Care Railway Engineer Name Role Phone Estrellita Piper CNP Primary Care Provider [phone] Reason for Visit * Reason Onset Date Comments Provider Out / resheduled appt 10/23/2025 Encounter Details Date Type Department Care Team ([facility] Contact Info) Description 10/23/2025 Telephone [facility] MED & PEDS [address] [place] [address] Estrellita Piper CNP [address] [place] [address] Provider Out / resheduled appt Social History Tobacco Use Types Packs/Day Years [...] encounter Miscellaneous Notes * Telephone Encounter - Marielena Liang [place] - 10/23/2025 8:56 AM EST Pt is scheduled with Estrellita Piper 10/23/25 @ 2pm for TP from Dr Pina. Appointment rescheduled due to provider called out. Called and spoke with pt rescheduled for 11/22/25 @ 10am. Pt agreed and verbalized understanding. documented in this encounter Plan of Treatment Upcoming Encounters Date Type Department Care Team (Late st Contact Info) Description 11/22/2025 10:00 AM EST Office Visit [facility] CHC MED & PEDS [address] [place] [address] Estrellita Piper CNP [address] [place] [address] documented as of this encounter Visit Diagnoses Not on filedocumented in this encounter Additional Health Concerns Assessment Noted Time PHQ-9 Depression Total Score: 23 025 9:51 AM EDT documented as of this encounter Care Teams Railway Engineer Relationship Specialty Start Date End Date Estrellita Piper CNP [address] [place] [address] PCP - General Family Medicine 09/20/25 documented as of this encounter
--- OUTSIDE RECORDS SUMMARY | 2025-10-23 13:08 | XMS_ITS | Encounter Summary ---
Author Organization [employer] Address [address] [facility] 7t [place] [address] Care Team Providers Care Assembler Semiconductor Name Role Phone Rhoda Pina MD Primary Care Provider [phone] Rosemarie Barahona NP Primary Care Provider [phone] Estrellita Piper CNP Primary Care Provider [phone] Reason for Visit * Reason Onset Date Comments Hospital Follow-up 12/12/2023 Encounter Details Date Type Department Care Team ([facility] Contact Info) Description 12/12/2023 Telephone [facility] MED & PEDS [address] [place], [place] [phone] Rhoda Pina MD 505 [place] [address] Hospital Follow-up Social History Tobacco Use Types Packs/Day Years Used Date Smoking Tobacco: Former Cigarettes Q uit: 05/11/2023 Passive Smoke Exposure: Never Smokeless Tobacco: Never Housing Stability Answer Date Recorded What is your housing situation today? I have rogeliobacilio boswell 12/12/[address] you [...] from pt requesting a HDF appt. Hospital: [facility] Date of admission: 12/02 Discharge date: 12/07 Diagnosed: Bipolar disorder Please contact pt at [phone] documented in this encounter Plan of Treatment Upcoming Encounters Date Type Department Care Team ([facility] st Contact Info) Description 11/22/2025 10:00 AM EST Office Visit [facility] CHC MED & PEDS [address] [place] [address] Estrellita Piper CNP [address] [place] [address] documented as of this encounter Visit Diagnoses Not on filedocumented in this encounter Care Teams Assembler Semiconductor Relationship Specialty Start Date End Date Rhoda Pina MD [address] [place] [address] PCP - General Family Medicine 10/19/12 06/12/25 Rosemarie Barahona NP [address] [place] [address] PCP - General Family Medicine 08/09/25 09/19/25 Estrellita Piper CNP [address] [place] [address] PCP - General Family Medicine 09/20/25 documented as of this encounter
--- OUTSIDE RECORDS SUMMARY | 2025-10-23 13:08 | XMS_ITS | Encounter Summary ---
Author Organization [employer] Address [address] [facility] [address] 7t [place] [address] Care Team Providers Care Relay Mechanic Name Role Phone Rhoda Pina MD Primary Care Provider [phone] Rosemarie Barahona NP Primary Care Provider [phone] Estrellita Piper CNP Primary Care Provider [phone] Reason for Visit * Reason Onset Date Comments Hospital Follow-up 09/13/2024 Encounter Details Date Type Department Care Team ([facility] st Contact Info) Description 09/13/2024 Telephone [facility] MEDICINE [address] [place] [address] Rhoda Pina MD [address] [place] [address] Hospital Follow-up Social History Tobacco Use Types [...] from pt requesting a HDF appt. Hospital: [facility] Date of admission: 09/07/24 Discharge date: 09/14/24 Diagnosed: Psyche Pt was advised by nurse to call before initial discharge to request a follow up visit. Pt does not have phone at the moment advised to contact [phone]. ([facility] Psyche java front end web developer) documented in this encounter Plan of Treatment Upcoming Encounters Date Type Department Care Team ([facility] st Contact Info) Description 11/22/2025 10:00 AM EST Office Visit [facility] MED & PEDS [address] [place] [address] Estrellita Piper CNP [address] [place] [address] documented as of this encounter Visit Diagnoses Not on filedocumented in this encounter Additional Health Concerns Assessment Noted Time PHQ-9 Depression Total Score: 18 024 9:52 AM EDT documented as of this encounter Care Teams Relay Mechanic Relationship Specialty Start Date End Date Rhoda Pina MD [address] [place] [address] PCP - General Family Medicine 10/19/12 06/12/25 Rosemarie Barahona NP [address] [place] [address] PCP - General Family Medicine 08/09/25 09/19/25 Estrellita Piper CNP [address] [place] [address] PCP - General Family Medicine 09/20/25 documented as of this encounter
--- OUTSIDE RECORDS SUMMARY | 2025-10-23 13:08 | XMS_ITS | Encounter Summary ---
Author Organization [employer] Address [address] [facility] [address] 7[address] [place] [address] Care Team Providers Care Appraisal Analyst Name Role Phone Rhoda Pina MD Primary Care Provider [phone] Rosemarie Barahona NP Primary Care Provider Estrellita Piper CNP Primary Care Provider [phone] Reason for Visit * Reason Onset Date Comments New Med Request 01/22/2025 Encounter Details Date Type Department Care Team ([facility] st Contact Info) Description 01/22/2025 Telephone [facility] MEDICINE [address] [place] [address] Rhoda Pina MD 505 [place] [address] New Med Request Social History Tobacco Use [...] Description 11/22/2025 10:00 AM EST Office Visit [facility] CHC MED & PEDS 505 [place] [address] Estrellita Piper CNP 505 [place] [address] documented as of this encounter Visit Diagnoses Not on filedocumented in this encounter Additional Health Concerns Assessment Noted Time PHQ-9 Depression Total Score: 23 025 9:51 AM EDT documented as of this encounter Care Teams Appraisal Analyst Relationship Specialty Start Date End Date Rhoda Pina MD [address] [place] [address] PCP - General Family Medicine 10/19/12 06/12/25 Rosemarie Barahona NP 230 [place] [address] PCP - General Family Medicine 08/09/25 09/19/25 Estrellita Piper CNP [address] [place] [address] PCP - General Family Medicine 09/20/25 documented as of this encounter
--- OUTSIDE RECORDS SUMMARY | 2025-10-23 13:08 | XMS_ITS | Clinical Summary ---
Author Organization [employer] Address [address] [facility] 7t [place] [address] Care Team Providers Care Racecar Driver Name Role Phone Estrellita Piper RUG INSPECTOR HELPER Primary Care Provider [phone] Allergies No known active allergies Medications * This document contains information received from the source organization and may not represent a complete record from that organization. docusate sodium (Colace) 100 MG capsule Take 2 capsules (200 mg) by mouth if needed at bedtime for constipation. 180 capsule 1 023 Active albuterol (2.5 MG/3ML) 0.083% nebulizer solutionIndicat ions:COPD with acute exacerbation (CMS/HCC) (HCC) Take 3 mL (2.5 mg) by nebulization every 4 (four) hours if needed for wheezing or shortness of breath. 75 mL 1 023 Active Adderall XR 30 MG 24 hr capsule Take 1 capsule by mouth 1 (one) time each day. 023 Active Vraylar 6 MG capsule Take 1 capsule by mouth 1 (one) time each day. 023 Active clonazePAM (KlonoPIN) 1 MG tablet Take 1 tablet by mouth 3 times daily. 023 Active cloNIDine (Catapres) 0.1 MG tablet Take 1 tablet by mouth 3 times daily. 023 Active gabapentin (Neurontin) 300 MG capsule Take 1 capsule by mouth 2 times daily. 023 Active Myrbetriq 50 MG 24 hr tablet Take 1 tablet by mouth 1 (one) time each day. 023 Active traZODone (Desyrel) 50 MG tablet Take 1 tablet by mouth if needed at bedtime. 023 Active lithium 150 MG capsule Take 1 capsule by mouth at bedtime. Active escitalopram (Lexapro) 20 MG tablet Take 1 tablet by mouth Once daily. Active simvastatin (Zocor) 40 MG tablet Take 1 tablet (40 mg) by mouth at bedtime. 30 tablet 11 Active tolterodine LA (Detrol LA) 4 MG 24 hr capsule Take 1 capsule by mouth Once per day. Active lithium 300 MG capsule Take 1 capsule by mouth 2 times daily. Active albuterol (ProAir HFA) 108 (90 Base) MCG/ACT inhalerIndicati ons:COPD with acute exacerbation (CMS/HCC) (HCC) take 2 puffs by Inhalation route every 4 hours as needed for wheezing or shortness of breath 18 g 1 Active budesonide (Pulmicort Flexhaler) 180 MCG/ACT inhaler Inhale 1 puff in the morning and at bedtime. Rinse mouth with water after use to reduce aftertaste and incidence of candidiasis. Do not swallow. 1 each 11 Active mirtazapine (Remeron) 45 MG tablet Take 0.5 tablets by mouth at bedtime. Active thiamine (Vitamin B-1) 100 MG tablet Take 1 tablet by mouth Once per day. Active lamoTRIgine (LaMICtal) 150 MG tablet Take 1 tablet by mouth at bedtime. Active ibuprofen 800 MG tablet TAKE 1 TABLET BY MOUTH THREE TIMES DAILY 90 tablet Active Allergy Relief 10 MG tablet TAKE 1 TABLET (10 MG) BY MOUTH IN THE MORNING. 30 tablet 4 Active betamethasone dipropionate 0.05 % creamIndication s:Dermatitis Apply topically 2 times daily. 45 g Active amphetamine-dex troamphetamine (Adderall) 20 MG tablet Take 1 tablet by mouth Once per day. Active ammonium lactate (Lac-Hydrin) 12 % lotion Apply topically if needed for dry skin Active buPROPion XL (Wellbutrin XL) 150 MG 24 hr tablet Take 1 tablet by mouth Once per day. Active ammonium lactate (Lac-Hydrin) 12 % lotion Apply topically if needed. 025 2025 Active cyclobenzaprine (Flexeril) 10 MG tabletIndicatio ns:Acute back pain, unspecified back location, unspecified back pain laterality TAKE 1 TABLET BY MOUTH THREE TIMES A DAY 90 tablet 1 025 Active esomeprazole (NexIUM) [address] capsule TAKE 1 CAPSULE BY MOUTH EVERY DAY 90 capsule 1 025 Active esomeprazole (NexIUM) [address] capsule Take 1 capsule by mouth 1 (one) time each day. 023 2024 Discontinued(R eorder (will not trigger notification to Pharmacy)) Active Problems Problem Noted Date Diagnosed Date Chronic obstructive airway disease with asthma ( [facility]) 08/08/2025 Attention deficit disorder of adult with hyperac tivity 08/08/2025 Carcinoma in situ of cervix 08/08/2025 Cervical dysplasia 08/08/2025 Class 1 obesity 08/08/2025 Class 2 obesity 08/08/2025 Do not resuscitate status 08/08/2025 High-risk supervision 08/08/2025 History of migraine headaches 08/08/2025 -induced hypertension 08/08/2025 Smoker 08/08/2025 Hospital discharge follow-up 09/18/2024 Chronic neck and back pain 05/07/2024 Macromastia 05/07/2024 Anemia 02/01/2023 Hereditary spherocytosis 02/01/2023 Current smoker 02/01/2023 COPD with acute exacerbation ([facility]) Assessment & Plan (09/18/2024 6:36 PM EST): [...] Center 01/27/2023 10:00 AM Rhoda Pina MD [facility] MED [facility] Acute nontraumatic kidney injury 02/08/2020 Bipolar disorder 05/14/2013 Assessment & Plan (09/18/2024 6:35 PM EST): [...] in anticipation of upcoming appt with psychiatrist Thrombocytopenia 05/14/2013 Assessment & Plan (03/17/2024 2:09 PM EDT): Hx of thrombocytopenia and hereditary spherocytosis following with [facility] Heme/Onc Pt requesting repeat of CBC and iron studies today, placed Asthma 05/14/2013 Opioid dependence 05/14/2013 Encounters Date Type Department Care Team Description 10/23/2025 Travel 10/23/2025 Telephone [facility] MED & PEDS [address] [place] [address] Estrellita Piper CNP Provider Out / resheduled appt 10/08/2025 Refill [facility] [address] [place] [address] Estrellita Piper CNP 09/04/2025 Refill [facility] MEDICINE [address] [place] [address] Rosemarie Barahona NP Acute back pain, unspecified back location, unspecified back pain laterality 08/22/2025 Refill [facility]ED[facility] [address] [place] [address] Rhoda Pina MD Acute back pain, unspecified back location, unspecified back pain laterality 08/08/2025 Telephone [facility] MEDICINE [address] [place] [address] Feliz HariledyelissaGABY chart prep 07/25/2025 Results Follow-Up [facility] MED & PEDS [address] [place] [address] Abdomen Pelvis w/ Contrast from Last 3 Months Immunizations Immunization Administration [...] [facility] [address] [place] [address] Estrellita Piper, RUG INSPECTOR HELPER [address] [place] [address] Health Maintenance Due Date Last Done Comments [...] AM EDT Narrative 07/25/2025 9:45 AM EDT [address] [address] [address] Scan Report Signed Patient: Tammy Romero MR#: [id number] : 1985 Acct:[id number] Age/Sex: 40 / F ADM Date: 07/25/25 Loc: HO.CT Attending Dr: Talib Cochran MD Ordering Physician: TALIB COCHRAN MD Date of Service: 07/25/25 Procedure(s): CT abdomen pelvis w IV con Accession Number(s): [id number] cc: TALIB COCHRAN MD; Physician,Unknown Report Number: [id number]: Total DLP = 597.00 mGy-cm Reason for [...] signed by Karan Ridley MD in OV> 07/25/2543 DD/ 6 TD/TT: 07/25/25930 Industrial Gas Fitter Helper: Procedure Note Donotuseinterpreter, Image - 07/25/[address] [place] [address] [address] Scan Report Signed Patient: Tammy Romero LMR#: [id number] : 1985Acct:[id number] Age/Sex: 40 / FADM Date: 07/25/25 Loc: HO.CT Attending Dr: Talib Cochran MD Ordering Physician: TALIB COCHRAN MD Date of Service: 07/25/25 Procedure(s): CT abdomen pelvis w IV con Accession Number(s): [id number] cc: TALIB COCHRAN MD; Physician,Unknown Report Number: [id number]: Total DLP = 597.00 mGy-cm Reason for [...] in OV> 07/25/25942 DD/ 6 TD/TT: 07/25/25930 Industrial Gas Fitter Helper: Talib Cochran MD IMG CT PROCEDURES Edited Result - Final * HM PAP/HPV (01/18/2025 10:44 AM EDT) Historical Provider HEALTH MAINTENANCE Final Result * (ABNORMAL) Lipid Panel, Standard (03/02/2024 10:00 AM EDT) Triglycerides 175(H) <150 mg/dL [facility] Comment:Desirable Triglyceri de: less than 150 mg/dLBorderline High Triglyceride 150-199 mg/dLHigh Triglyceride: 200-499 mg/dLVery High Triglyceride: greater than or equal to 5OO mg/dL Cholesterol 216(H) <200 mg/dL [facility] Comment:Desirable Cholestero l: less than 200 mg/dLBorderline High Cholesterol: 200-239 mg/dLHigh Cholesterol: greater than 239 mg/dL LDL Cholesterol Calculated 131(H) <100 mg/dL [facility] Comment:Desirable LDL: less than 100 mg/dLNear Optimal/Above Optimal LDL: 110- 129 mg/dLBorderline High LDL: 130-159 mg/dLHigh LDL: 160-189 mg/dLVery High LDL: greater than or equal to 190 mg/dL HDL Cholesterol 50 >40 mg/dL [facility] Comment:Desirable HDL: great er than 40 mg/dL Note: This HDL assay may give artificially low results in patients with liver disease. Blood Venous blood specimen / Unknown 03/02/2024 10:00 AM EDT 03/02/2024 10:00 AM EDT Beronica Venegas [facility] BLOOD ORDERABLES Final Res ult [facility] [address] [place] [phone] from Last 3 Months or Most Recently Relevant to Health Maintenance Insurance [facility] STANDARD MEDICARE Care Teams Racecar Driver Relationship Specialty Start Date End Date Estrellita Piper CNP [address] [place] [address] PCP - General Family Medicine 09/20/25
--- OUTSIDE RECORDS SUMMARY | 2025-10-23 13:08 | XMS_ITS | Clinical Summary ---
Author Organization [facility] Address [address] [place], [place] [id number] Phone Care Team Providers Care Public Bath Attendant Name Role Phone Rhoda Pina MD Primary Care Provider [phone] Allergies No known active allergies Medications albuterol [...] VACCINE (#1) 2025 COVID-19 VACCINE (1 - 2024-2 6 season) 2025 PNEUMOCOCCAL VACCINES (0-49 years) Aged [...] topic Medical Devices Not on file Insurance [facility] MEDICARE PART A & B [place] PART A & B [facility] MEDICARE PART A & B Care Teams Public Bath Attendant Relationship Specialty Start Date End Date Rhoda Pina MD [address] [place] [address] PCP - General Family Medicine 05/07/24 Additional Source Comments The information contained in this document represents components of the legal health record. It is not the complete legal health record.[facility]
--- OUTSIDE RECORDS SUMMARY | 2025-10-23 13:08 | XMS_ITS | Encounter Summary ---
Author Organization [employer] Address [address] [place] [address] 7 [place] [address] Care Team Providers Care Mixing Machine Attendant Name Role Phone Rhoda Pina MD Primary Care Provider [phone] Rosemarie Barahona NP Primary Care Provider [phone] Estrellita Piper CNP Primary Care Provider [phone] Reason for Visit * Reason Onset Date Comments Hospital Follow-up 10/20/2023 Encounter Details Date Type Department Care Team ([facility] Contact Info) Description 10/20/2023 Telephone [facility] MED & PEDS [address] [place], [place] [phone] Rhoda Pina MD [address] [place] [address] Hospital Follow-up Social History Tobacco Use Types [...] appointment. [facility]. Diagnosed with gastroesophageal reflux disease Please contact jenny at [phone] documented in this encounter Plan of Treatment Upcoming Encounters Date Type Department Care Team (Late st Contact Info) Description 11/22/2025 10:00 AM EST Office Visit [facility] MED & PEDS [address] [place] [address] Estrellita Piper CNP [address] [place] [address] documented as of this encounter Visit Diagnoses Not on filedocumented in this encounter Care Teams Mixing Machine Attendant Relationship Specialty Start Date End Date Rhoda Pina MD [address] [place] [address] PCP - General Family Medicine 10/19/12 06/12/25 Rosemarie Barahona NP [address] [place] [address] PCP - General Family Medicine 08/09/25 09/19/25 Estrellita Piper CNP [address] [place] [address] PCP - General Family Medicine 09/20/25 documented as of this encounter
--- OUTSIDE RECORDS SUMMARY | 2025-10-23 13:08 | XMS_ITS | Encounter Summary ---
Author Organization [employer] Address 75 [facility] 7t [place] [address] Care Team Providers Care Pullman Conductor Name Role Phone Rhoda Pina MD Primary Care Provider [phone] Rosemarie Barahona NP Primary Care Provider [phone] Estrellita Piper CNP Primary Care Provider [phone] Reason for Visit * Reason Onset Date Comments FYI 12/18/2024 Encounter Details Date Type Department Care Team ([facility] st Contact Info) Description 12/18/2024 Telephone [facility] MEDICINE [address] [place] [address] Rhoda Pina MD [address] [place] [address] Social History Tobacco Use Types Packs/Day Years [...] Description 11/22/2025 10:00 AM EST Office Visit [facility] MED & PEDS [address] [place] [address] Estrellita Piper, GABY [address] [place] [address] documented as of this encounter Visit Diagnoses Not on filedocumented in this encounter Additional Health Concerns Assessment Noted Time PHQ-9 Depression Total Score: 18 024 9:52 AM EDT documented as of this encounter Care Teams Pullman Conductor Relationship Specialty Start Date End Date Rhoda Pina MD [address] [place] [address] PCP - General Family Medicine 10/19/12 06/12/25 Rosemarie Barahona NP [address] [place] [address] PCP - General Family Medicine 08/09/25 09/19/25 Estrellita Piper CNP [address] [place] [address] PCP - General Family Medicine 09/20/25 documented as of this encounter
--- OUTSIDE RECORDS SUMMARY | 2025-10-23 13:08 | XMS_ITS | Encounter Summary ---
Author Organization [employer] Address 75 [facility] 7t [place] [address] Care Team Providers Care Lead Nurse Name Role Phone Rhoda Pina MD Primary Care Provider [phone] Rosemarie Barahona NP Primary Care Provider [phone] Estrellita Piper CNP Primary Care Provider [phone] Reason for Visit * Reason Comments Med Refill Encounter Details Date Type Department Care Team ([facility] st Contact Info) Description 09/26/2024 Refill [facility] MED & PEDS [address] [place] [address] Rhoda Pina MD [address] [place] [address] Acute back pain, unspecified back location, unspecified [...] 11/22/2025 10:00 AM EST Office Visit [facility] MED & PEDS [address] [place], [place] [phone] Estrellita Piper CNP [address] [place] [address] documented as of this encounter Visit Diagnoses Diagnosis Acute back pain, unspecified back location, unspecified back pain laterality documented in this encounter Additional Health Concerns Assessment Noted Time PHQ-9 Depression Total Score: 18 024 9:52 AM EDT documented as of this encounter Care Teams Lead Nurse Relationship Specialty Start Date End Date Rhoda Pina MD [address] [place] [address] PCP - General Family Medicine 10/19/12 06/12/25 Rosemarie Barahona NP [address] [place], [place] [phone] PCP - General Family Medicine 08/09/25 09/19/25 Estrellita Piper CNP [address] [place] [address] PCP - General Family Medicine 09/20/25 documented as of this encounter
--- OUTSIDE RECORDS SUMMARY | 2025-10-23 13:08 | XMS_ITS | Encounter Summary ---
Author Organization [employer] Address [address] [facility] [address] 7t [place] [address] Care Team Providers Care Senior Environmental Practice Leader Name Role Phone Rhoda Pina MD Primary Care Provider [phone] Rosemarie Barahona NP Primary Care Provider [phone] Estrellita Piper CNP Primary Care Provider [phone] Encounter Details Date Type Department Care Team (Late st Contact Info) Description 02/13/2025 Orders Only [facility] MED & PEDS [address] [place], [place] [phone] Provider, MD Ranulfo Social History Tobacco Use Types Packs/Day Years [...] [facility] [address] [place], [place] [phone] Estrellita Piper CNP [address] [place] [address] documented as of this encounter Procedures Procedure Name Priority Date/Time Associated Diagnosis Comments PAP/HPV Routine 01/18/2025 10:44 AM EDT PAP/HPV Routine 12/12/2023 10:43 AM EST documented [...] documented as of this encounter Care Teams Senior Environmental Practice Leader Relationship Specialty Start Date End Date Rhoda Pina MD [address] [place] [address] PCP - General Family Medicine 10/19/12 06/12/25 Rosemarie Barahona NP [address] [place], [place] [phone] PCP - General Family Medicine 08/09/25 09/19/25 Estrellita Piper CNP [address] [place] [address] PCP - General Family Medicine 09/20/25 documented as of this encounter
--- OUTSIDE RECORDS SUMMARY | 2025-10-23 13:08 | XMS_ITS | Encounter Summary ---
Author Organization [employer] Address [address] [facility] [address] 7t [place] [address] Care Team Providers Care Acid Correction Hand Name Role Phone Rhoda Pina MD Primary Care Provider [phone] Rosemarie Barahona NP Primary Care Provider [phone] Estrellita Piper CNP Primary Care Provider [phone] Reason for Visit * Reason Onset Date Comments Hospital Follow-up 04/30/2025 Encounter Details Date Type Department Care Team ([facility] st Contact Info) Description 04/30/2025 Telephone [facility] MEDICINE [address] [place] [address] Rhoda Pina MD [address] [place] [address] Hospital Follow-up Social History Tobacco Use Types [...] from pt requesting a HDF appt. Hospital: [facility] Date of admission: 04/23/25 Discharge date: 05/01/25 Diagnosed: PTSD, BP, Anxiety, and ADHD Chen states pt will only be available tomorrow because on Tuesday she will turn herself in for 10 day incarceration and will be available after 05/13. Please contact Chen at [phone]. documented in this encounter Plan of Treatment Upcoming Encounters Date Type Department Care Team (Late st Contact Info) Description 11/22/2025 10:00 AM EST Office Visit [facility] MED & PEDS [address] [place] [address] Estrellita Piper, GABY [address] [place] [address] documented as of this encounter Visit Diagnoses Not on filedocumented in this encounter Additional Health Concerns Assessment Noted Time PHQ-9 Depression Total Score: 23 025 9:51 AM EDT documented as of this encounter Care Teams Acid Correction Hand Relationship Specialty Start Date End Date Rhoda Pina MD [address] [place] [address] PCP - General Family Medicine 10/19/12 06/12/25 Rosemarie Barahona NP [address] [place] [address] PCP - General Family Medicine 08/09/25 09/19/25 Estrellita Piper CNP [address] [place] [address] PCP - General Family Medicine 09/20/25 documented as of this encounter
--- OUTSIDE RECORDS SUMMARY | 2025-10-23 13:08 | XMS_ITS | Encounter Summary ---
Author Organization [employer] Address [address] [facility] 7t [place] [address] Care Team Providers Care Tobacco Grader Name Role Phone Estrellita Piper CNP Primary Care Provider [phone] Encounter Details Date Type Department Care Team (Latest Contact Info) Description 10/23/2025 Travel Social History Tobacco Use Types Packs/Day Years [...] Description 11/22/2025 10:00 AM EST Office Visit [facility] MED & PEDS [address] [place] [address] Estrellita Piper CNP [address] [place] [address] documented as of this encounter Visit Diagnoses Not on filedocumented in this encounter Additional Health Concerns Assessment Noted Time PHQ-9 Depression Total Score: 23 025 9:51 AM EDT documented as of this encounter Care Teams Tobacco Grader Relationship Specialty Start Date End Date Estrellita Piper CNP [address] [place] [address] PCP - General Family Medicine 09/20/25 documented as of this encounter
--- OUTSIDE RECORDS SUMMARY | 2025-10-23 13:08 | XMS_ITS | Encounter Summary ---
Author Organization [employer] Address [address] [facility] [address] 7t [place] [address] Care Team Providers Care Specifications Writer Name Role Phone Rhoda Pina MD Primary Care Provider [phone] Rosemarie Barahona NP Primary Care Provider [phone] Estrellita Piper CNP Primary Care Provider [phone] Reason for Visit * Reason Onset Date Comments Hospital Follow-up 12/21/2024 Encounter Details Date Type Department Care Team ([facility] st Contact Info) Description 12/21/2024 Telephone [facility] MEDICINE [address] [place] [address] Rhoda Pina MD [address] [place] [address] Hospital Follow-up Social History Tobacco Use Types [...] from pt requesting a HDF appt. [facility] Date of admission: 12/17 Discharge date: 12/21 Diagnosed: Bi polar Disorder *Send message to [facility] Clinical Care Coordinators Contact pt at [phone] documented in this encounter Plan of Treatment Upcoming Encounters Date Type Department Care Team ([facility] st Contact Info) Description 11/22/2025 10:00 AM EST Office Visit [facility] MED & PEDS [address] [place] [address] Estrellita Piper, RAILROAD CARMAN [address] [place] [address] documented as of this encounter Visit Diagnoses Not on filedocumented in this encounter Additional Health Concerns Assessment Noted Time PHQ-9 Depression Total Score: 18 024 9:52 AM EDT documented as of this encounter Care Teams Specifications Writer Relationship Specialty Start Date End Date Rhoda Pina MD [address] [place] [address] PCP - General Family Medicine 10/19/12 06/12/25 Rosemarie Barahona NP [address] [place] [address] PCP - General Family Medicine 08/09/25 09/19/25 Estrellita Piper CNP [address] [place] [address] PCP - General Family Medicine 09/20/25 documented as of this encounter
--- OUTSIDE RECORDS SUMMARY | 2025-10-23 13:08 | XMS_ITS | Encounter Summary ---
Author Organization [employer] Address [address] [facility] [address] 7[address] [place] [address] Care Team Providers Care Medical Technologist Blood Bank Name Role Phone Rhoda Pina MD Primary Care Provider [phone] Rosemarie Barahona NP Primary Care Provider [phone] Estrellita Piper CNP Primary Care Provider [phone] Reason for Visit * Reason Onset Date Comments Appointment Request 12/12/2023 Encounter Details Date Type Department Care Team ([facility] st Contact Info) Description 12/12/2023 Telephone [facility] MEDICINE [address] [place] [address] Rhoda Pina MD [address] [place] [address] Appointment Request Social History Tobacco Use Types [...] [facility] calling to reschedule appt for 12/08/2022 sba underwriter did explain there is no availability at the moment documented in this encounter Plan of Treatment Upcoming Encounters Date Type Department Care Team (Late st Contact Info) Description 11/22/2025 10:00 AM EST Office Visit [facility] MED [facility] PEDS 505 [place], [place] [phone] Estrellita Piper CNP [address] [place] [address] documented as of this encounter Visit Diagnoses Not on filedocumented in this encounter Care Teams Medical Technologist Blood Bank Relationship Specialty Start Date End Date Rhoda Pina MD [address] [place] [address] PCP - General Family Medicine 10/19/12 06/12/25 Rosemarie Barahona NP [address] [place] [address] PCP - General Family Medicine 08/09/25 09/19/25 Estrellita Piper CNP [address] [place] [address] PCP - General Family Medicine 09/20/25 documented as of this encounter
--- OUTSIDE RECORDS SUMMARY | 2025-10-23 13:08 | XMS_ITS | Encounter Summary ---
Author Organization [employer] Address [address] [place] [address] 7t [place] [address] Care Team Providers Care Manhole Builder Name Role Phone Rhoda Pina MD Primary Care Provider [phone] Rosemarie Barahona NP Primary Care Provider [phone] Estrellita Piper CNP Primary Care Provider [phone] Reason for Visit * Reason Onset Date Comments Results 11/08/2023 Encounter Details Date Type Department Care Team ([facility] st Contact Info) Description 11/08/2023 Telephone [facility] MED & PEDS [address] [place], [place] [phone] Rhoda Pina MD 505 [place] [address] Results Social History Tobacco Use Types Packs/Day [...] be faxed. Labs printed and faxed to [phone]. Once results are received she will review [...] in messages prior. Please contact pt at [phone]. * Telephone Encounter - Eliza Fox RN - 11/08/2023 11:11 AM EST Please review message below and advise on lab results and next steps. * Telephone Encounter - Cari Reid - 11/08/2023 10:20 AM EST Tc from pt requesting a call back from a nurse to speak about some blood work results just receivedon portal. Please contact pt @ [phone] documented in this encounter Plan of Treatment Upcoming Encounters Date Type Department Care Team (Late st Contact Info) Description 11/22/2025 10:00 AM EST Office Visit [facility] MED & PEDS [address] [place], [place] [phone] Estrellita Piper CNP [address] [place], [place] [phone] documented as of this encounter Visit Diagnoses Not on filedocumented in this encounter Care Teams Manhole Builder Relationship Specialty Start Date End Date Rhoda Pina MD [address] [place] [address] PCP - General Family Medicine 10/19/12 06/12/25 Rosemarie Barahona NP [address] [place] [address] PCP - General Family Medicine 08/09/25 09/19/25 Estrellita Piper CNP [address] [place] [address] PCP - General Family Medicine 09/20/25 documented as of this encounter
--- OUTSIDE RECORDS SUMMARY | 2025-10-23 13:09 | XMS_ITS | Encounter Summary ---
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 Social History Tobacco Use [...] LEVEL Routine 04/30/2025 7:00 AM EDT Other long-term (current) drug therapy documented in this encounter Results * Braden level (04/30/2025 7:00 AM EDT) Braden Level 0.6 0.6 - 1.2 mEq/L LAB CHEMISTRY METHOD 04/30/2025 12:13 PM EDT [facility] Blood Venous blood specimen / Unknown Venipuncture / Unknown 04/30/2025 7:00 AM EDT 04/30/2025 9:40 AM EDT us Darby Solitario WELDER LAB BLOOD ORDERABLES Final Resul t [facility] ([facility] H[facility] LAB [address] [place] [address], documented in this encounter Visit Diagnoses Diagnosis 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
--- OUTSIDE RECORDS SUMMARY | 2025-10-23 13:09 | XMS_ITS | Encounter Summary ---
Author Organization [facility] Address [address] [place] [address] Care Team Providers Care Museum Service Scheduler Name Role Phone Rhoda Pina MD Primary Care Provider [phone] Encounter Details Date Type Department Care Team (Late st Contact Info) Description 04/26/2025 Lab Requisition [facility] - Main Lab [address] [facility] [place] [address] Darby Solitario, SHELL [address] [place] [address] Other rn long term care (current) drug therapy Social History Tobacco Use [...] DIFFERENTIAL Routine 04/26/2025 7:00 AM EDT Other rn long term care (current) drug therapy CBC AND DIFFERENTIAL Routine 04/26/2025 7:00 AM EDT Other intermediate (current) drug therapy THYROID STIMULATING HORMONE Routine 04/26/2025 7:00 AM EDT Other rn long term care (current) drug therapy LITHIUM LEVEL Routine 04/26/2025 7:00 AM EDT Other rn long term care (current) drug therapy COMPREHENSIVE METABOLIC PANEL Routine 04/26/2025 7:00 AM EDT Other rn long term care (current) drug therapy documented in this encounter Results * (ABNORMAL) CBC auto differential (04/26/2025 7:00 AM EDT) [facility] Signature WBC 12.1(H) 4.8 - 10.8 K/mcL LAB HEMETOLOGY METHOD 04/26/2025 12:[facility] RBC 5.00(H) 3.80 - 4.80 M/mcL LAB HEMETOLOGY METHOD 04/26/2025 12:32 [facility] Hemoglobin 14.7 11.5 - 16.0 g/dL LAB HEMETOLOGY METHOD 04/26/2025 12:32 PM [facility] Hematocrit 46.9 35.0 - 47.0 % LAB HEMETOLOGY METHOD 04/26/2025 12:32 PM [facility] MCV 94.0 79.0 - 98.0 FL LAB HEMETOLOGY METHOD 04/26/2025 12:32 [facility] MCH 29.5 27.0 - 32.0 pcg LAB HEMETOLOGY METHOD 04/26/2025 12:32 PM [facility] MCHC 31.3(L) 32.0 - 37.0 g/dL LAB HEMETOLOGY METHOD 04/26/2025 12:32 PM [facility] RDW 16.0(H) 11.0 - 15.0 % LAB HEMETOLOGY METHOD 04/26/2025 12:32 PM [facility] Platelets 451(H) 130 - 400 K/mcL LAB HEMETOLOGY METHOD 04/26/2025 12:32 PM [facility] MPV 11.0 7.0 - 11.0 FL LAB HEMETOLOGY METHOD 04/26/2025 12:32 PM [facility] NRBC 0.0 <1.0 % LAB HEMETOLOGY METHOD 04/26/2025 12:32 PM EDT [facility] NRBC Absolute 0.00 <0.10 K/mcL LAB HEMETOLOGY METHOD 04/26/2025 12:32 PM [facility] Neutrophils Relative 46.2 % LAB HEMETOLOGY METHOD 04/26/2025 12:32 PM [facility] Lymphocytes Relative 40.3 % LAB HEMETOLOGY METHOD 04/26/2025 12:32 PM [facility] Monocytes Relative 8.6 % LAB HEMETOLOGY METHOD 04/26/2025 12:32 PM T [facility] Eosinophils Relative 3.8 % LAB HEMETOLOGY METHOD 04/26/2025 12:32 PM [facility] Basophils Relative 0.8 % LAB HEMETOLOGY METHOD 04/26/2025 12:32 PM [facility] Immature Granulocytes Relative 0.3 % LAB HEMETOLOGY METHOD 04/26/2025 12:32 PM [facility] Neutrophils Absolute 5.59 1.50 - 7.00 K/mcL LAB HEMETOLOGY METHOD 04/26/2025 12:32 PM [facility] Lymphocytes Absolute 4.88 1.00 - 5.00 K/mcL LAB HEMETOLOGY METHOD 04/26/2025 12:32 PM [facility] Monocytes Absolute 1.04(H) 0.20 - 1.00 K/mcL LAB HEMETOLOGY METHOD 04/26/2025 12:32 PM [facility] Eosinophils Absolute 0.46 0.00 - 0.50 K/mcL LAB HEMETOLOGY METHOD 04/26/2025 12:32 PM [facility] Basophils Absolute 0.10 0.00 - 0.20 K/mcL LAB HEMETOLOGY METHOD 04/26/2025 12:32 PM [facility] Immature Granulocytes Absolute 0.04(H) 0.00 - 0.03 K/mcL LAB HEMETOLOGY METHOD 04/26/2025 12:32 PM EDT [facility] Blood Venous blood specimen / Unknown Venipuncture / Unknown 04/26/2025 7:00 AM EDT 04/26/2025 11:08 AM EDT Darby Solitario NP LAB BLOOD ORDERABLES Final Resul t Performing Organization Address City/[facility]/ZIP Co de Phone Number [facility] [address] [place] [address], [place] [phone] * Thyroid stimulating hormone (04/26/2025 7:00 AM EDT) TSH 3.63 0.40 - 4.00 mcIU/mL LAB CHEMISTRY METHOD 04/26/2025 2:16 PM EDT [facility] Blood Venous blood specimen / Unknown Venipuncture / Unknown 04/26/2025 7:00 AM EDT 04/26/2025 11:08 AM EDT Darby Solitario NP LAB BLOOD ORDERABLES Final Resul t Performing Organization Address City/[facility] Co de Phone Number [facility] [address] [place] [address], [place] [phone] * (ABNORMAL) Rockleigh level (04/26/2025 7:00 AM EDT) [place] Level 1.6(HH) 0.6 - 1.2 mEq/L LAB CHEMISTRY METHOD 04/26/2025 2:21 PM EDT [facility] Comment:Results verified by repeat testing Blood Venous blood specimen / Unknown Venipuncture / Unknown 04/26/2025 7:00 AM EDT 04/26/2025 11:08 AM EDT Darby Solitario ADMISSIONS NURSE LAB BLOOD ORDERABLES Final Resul t [facility] [address] [place] [address], * (ABNORMAL) Comprehensive metabolic panel (04/26/2025 7:00 AM EDT) Sodium 137 133 - 145 mmol/L LAB CHEMISTRY METHOD 04/26/2025 1:28 PM [facility] Potassium 4.8 3.5 - 5.5 mmol/L LAB CHEMISTRY METHOD 04/26/2025 1:28 PM [facility] Comment:Hemolysis present Chloride 103 96 - 110 mmol/L LAB CHEMISTRY METHOD 04/26/2025 1:28 PM [facility] CO2 25 21 - 32 mmol/L LAB CHEMISTRY METHOD 04/26/2025 1:28 PM [facility] Anion Gap 9 3 - 11 LAB CHEMISTRY METHOD 04/26/2025 1:28 PM [facility] Glucose 77 70 - 100 mg/dL LAB CHEMISTRY METHOD 04/26/2025 1:28 PM [facility] BUN 7 5 - 25 mg/dL LAB CHEMISTRY METHOD 04/26/2025 1:28 PM [facility] Creatinine 0.83 0.50 - 1.10 mg/dL LAB CHEMISTRY METHOD 04/26/2025 1:28 PM [facility] eGFR 91 >=60 mL/min/1. 73m2 LAB CHEMISTRY METHOD 04/26/2025 1:28 PM [facility] Comment:Calculation based on the Chronic Kidney Disease Epidemiology Collaboration (CKD-EPI) equation refit without adjustment for race. BUN/Creatinine Ratio 8.4 LAB CHEMISTRY METHOD 04/26/2025 1:28 PM [facility] Calcium 10.7(H) 8.5 - 10.5 mg/dL LAB CHEMISTRY METHOD 04/26/2025 1:28 PM [facility] AST (SGOT) 44(H) 10 - 42 unit/L LAB CHEMISTRY METHOD 04/26/2025 1:28 PM EDT [facility] Comment:Hemolysis present ALT (SGPT) 47 10 - 60 unit/L LAB CHEMISTRY METHOD 04/26/2025 1:28 PM EDT [facility] Alkaline Phosphatase 119 42 - 121 unit/L LAB CHEMISTRY METHOD 04/26/2025 1:28 PM EDT [facility] Total Protein 8.3(H) 6.0 - 8.0 g/dL LAB CHEMISTRY METHOD 04/26/2025 1:28 PM EDT [facility] Albumin 4.4 3.2 - 5.0 g/dL LAB CHEMISTRY METHOD 04/26/2025 1:28 PM EDT [facility] Total Bilirubin 0.4 0.0 - 1.4 mg/dL LAB CHEMISTRY METHOD 04/26/2025 1:28 PM EDT [facility] Blood Venous blood specimen / Unknown Venipuncture / Unknown 04/26/2025 7:00 AM EDT 04/26/2025 11:08 AM EDT Darby Solitario NP LAB BLOOD ORDERABLES Final Resul t [facility] [address] [place] [address], documented in this encounter Visit Diagnoses Diagnosis Other rn long term care (current) drug therapy documented in this encounter Care Teams Museum Service Scheduler Relationship Specialty Start Date End Date Rhoda Pina MD [address] [place] [address] PCP - General Family Medicine 02/07/25 documented as of this encounter
--- OUTSIDE RECORDS SUMMARY | 2025-10-23 13:09 | XMS_ITS | Encounter Summary ---
Author Organization [employer] Address [address] [facility] 7t [place] [address] Care Team Providers Care School Treasurer Name Role Phone Rosemarie Barahona NP Primary Care Provider [phone] Estrellita Piper CNP Primary Care Provider [phone] Reason for Visit * Reason Onset Date Comments Nurse Triage 07/16/2025 Encounter Details Date Type Department Care Team ([facility] st Contact Info) Description 07/16/2025 Telephone [facility] MEDICINE [address] [place] [address] Estrellita Piper CNP 505 [place] [address] Nurse Triage Social History Tobacco Use Types [...] other associated symptoms. given appt tomorrow with [facility] provider at 10:45 for exam. advised home [...] become worse * Telephone Encounter - Jm Wall - 07/16/2025 9:53 AM EDT Symptom: Rash or Redness on One Body Area Only Outcome: Schedule an urgent appointment (within 4 hours) or talk to a nurse or provider soon Reason: Skin is painful to touch documented in this encounter Plan of Treatment Upcoming Encounters Date Type Department Care Team (Late st Contact Info) Description 11/22/2025 10:00 AM EST Office Visit [facility] MED & PEDS [address] [place], [place] [phone] Estrellita Piper CNP [address] [place] [address] documented as of this encounter Visit Diagnoses Not on filedocumented in this encounter Additional Health Concerns Assessment Noted Time PHQ-9 Depression Total Score: 23 025 9:51 AM EDT documented as of this encounter Care Teams School Treasurer Relationship Specialty Start Date End Date Rosemarie Barahona NP [address] [place] [address] PCP - General Family Medicine 08/09/25 09/19/25 Estrellita Piper CNP [address] [place] [address] PCP - General Family Medicine 09/20/25 documented as of this encounter
--- OUTSIDE RECORDS SUMMARY | 2025-10-23 13:09 | XMS_ITS | Encounter Summary ---
Author Organization [employer] Address [address] [facility] [address] [facility] [address] 7t [place] [address] Care Team Providers Care Air Conditioning Technician Name Role Phone Rhoda Pina MD Primary Care Provider [phone] Rosemarie Barahona NP Primary Care Provider [phone] Estrellita Piper CNP Primary Care Provider [phone] Reason for Visit * Reason Onset Date Comments Medication Question 08/17/2024 Encounter Details Date Type Department Care Team ([facility] st Contact Info) Description 08/17/[address] [facility] MEDICINE [address] [place] [address] Rhoda Pina MD 505 [place] [address] Medication Question Social History Tobacco Use Types [...] any questions you can contact Klaudia at [phone]. documented in this encounter Plan of Treatment Upcoming Encounters Date Type Department Care Team (Late st Contact Info) Description 11/22/2025 10:00 AM EST Office Visit [facility] CHC MED & PEDS [address] [place], [place] [phone] Estrellita Piper, GRINDER AND PLATER 505 [place] [address] documented as of this encounter Visit Diagnoses Not on filedocumented in this encounter Additional Health Concerns Assessment Noted Time PHQ-9 Depression Total Score: 18 024 9:52 AM EDT documented as of this encounter Care Teams Air Conditioning Technician Relationship Specialty Start Date End Date Rhoda Pina MD [address] [place] [address] PCP - General Family Medicine 10/19/12 06/12/25 Rosemarie Barahona NP 230 [place] [address] PCP - General Family Medicine 08/09/25 09/19/25 Estrellita Piper CNP [address] [place] [address] PCP - General Family Medicine 09/20/25 documented as of this encounter
--- OUTSIDE RECORDS SUMMARY | 2025-10-23 13:09 | XMS_ITS | Encounter Summary ---
Author Organization [employer] Address [address] [facility] 7t [place] [address] Care Team Providers Care Parachute/Combatant Diver Officer Name Role Phone Rhoda Pina MD Primary Care Provider [phone] Rosemarie Barahona NP Primary Care Provider [phone] Estrellita Piper CNP Primary Care Provider [phone] Reason for Visit * Reason Onset Date Comments Results 06/12/2024 Encounter Details Date Type Department Care Team ([facility] st Contact Info) Description 06/12/2024 Telephone [facility] MEDICINE [address] [place] [address] Rhoda Pina MD 505 [place] [address] Results Social History Tobacco Use Types Packs/Day [...] Description 11/22/2025 10:00 AM EST Office Visit [facility] MED & PEDS 505 [place] [address] Estrellita Piper CNP 505 [place] [address] documented as of this encounter Visit Diagnoses Not on filedocumented in this encounter Additional Health Concerns Assessment Noted Time PHQ-9 Depression Total Score: 18 024 9:52 AM EDT documented as of this encounter Care Teams Parachute/Combatant Diver Officer Relationship Specialty Start Date End Date Rhoda Pina MD [address] [place] [address] PCP - General Family Medicine 10/19/12 06/12/25 Rosemarie Barahona NP [address] [place] [address] PCP - General Family Medicine 08/09/25 09/19/25 Estrellita Piper CNP [address] [place] [address] PCP - General Family Medicine 09/20/25 documented as of this encounter
--- OUTSIDE RECORDS SUMMARY | 2025-10-23 13:09 | XMS_ITS | Clinical Summary ---
Author Organization [address] [facility] Address [address] [place] [address] Phone Care Team Providers Care 3D Animator Name Role Phone Rhoda Pina MD Primary Care Provider [phone] Allergies No known active allergies Medications ammonium lactate (AmLactin) 12 % lotion Apply topically if needed for dry skin. 400 g 5 04/17/20 26 Active buPROPion (WELLBUTRIN) 75 mg tablet Take 0.5 tablets (37.5 mg total) by mouth daily. 5 Active budesonide (Pulmicort Flexhaler) 180 mcg/actuation inhaler Inhale 1 puff by mouth 2 times daily. 4 Active albuterol sulfate 90 mcg/actuation aerosol powdr breath activated Inhale by mouth. 7 Active ammonium lactate (AmLactin) 12 % lotion Apply topically if needed for dry skin. 400 g 5 08/19/20 26 Active diclofenac (Voltaren Arthritis Pain) 1 % topical gel Apply 4 g topically 2 (two) times a day. 240 g 1 5 11/22/19 26 Active fluconazole (Diflucan) 200 mg tablet Take 1 tablet (200 mg total) by mouth 1 (one) time per week. 6 each 5 10/03/20 25 Encounters Date Type Department Care Team Description 10/21/2025 9:30 AM EST Office Visit [facility]opedic [facility] [address] [facility] [address] [place] [address] Clinton, Christopher M, DPM Arthritis of right ankle (Primary Dx); Right foot pain; Tendinitis of right ankle 09/23/2025 3:00 PM EST Office Visit Orthopedic Surgery [place] [address] [phone] [place] DPM Tendinitis of right ankle (Primary Dx); Dermatophytosis of nail; Tinea pedis of both feet; Tendinitis of left ankle 08/19/2025 10:15 AM EDT Office Visit Orthopedic [facility] [address] [address] [place] [place] DPM Tendinitis of left ankle (Primary Dx); Tendinitis of right ankle; Dermatophytosis of nail; Tinea pedis of both feet; Xerosis of skin; Pain in toe of left foot; Pain in toe of right foot; Difficulty walking from Last 3 Months Social History Tobacco [...] Done Comments Breast Cancer Screening 1984 Hepatitis A Vaccines (1 of 2 - Risk 2-dose series) 02/15/2003 Hepatitis B Vaccines (1 of 3 - 19+ 3-dose series) 02/15/2003 Cervical Cancer Screening: P ap Smear 02/15/2005 HPV Vaccines (1 - 3-dose SCD M series) 02/15/2011 Pneumococcal Vaccine: Pediatrics (0 to 5 Years) [...] Cholesterol Screening (Lipid Panel) 04/24/2030 04/24/2025, 03/02/2024 RSV Immunization Adult Patients (1 - 1-dose 75+ series) 02/15/2059 HIB [...] Procedure Name Priority Date/Time Associated Diagnosis Comments XR FOOT 3+ VIEWS RIGHT Routine 10:19 AM EST Right foot pain COMPREHENSIVE METABOLIC PANEL Routine 04/26/2025 7:00 AM EDT Other operations vice president (current) drug therapy LIPID PANEL WITH REFLEX TO DIRECT LDL Routine 04/24/2025 7:00 AM EDT Other operations vice president (current) drug therapy from Last 3 Months or Most Recently Relevant to Health Maintenance Results * XR Foot 3+ Views Right [...] DPM IMG XR PROCEDURES Final R esult * (ABNORMAL) Comprehensive metabolic panel (04/26/2025 7:00 AM EDT) Sodium 137 133 - 145 mmol/L LAB CHEMISTRY METHOD 04/26/2025 1:28 PM [facility] Potassium 4.8 3.5 - 5.5 mmol/L LAB CHEMISTRY METHOD 04/26/2025 1:28 PM [facility] Comment:Hemolysis present Chloride 103 96 - 110 mmol/L LAB CHEMISTRY METHOD 04/26/2025 1:28 PM [facility] CO2 25 21 - 32 mmol/L LAB CHEMISTRY METHOD 04/26/2025 1:28 PM [facility] Anion Gap 9 3 - 11 LAB CHEMISTRY METHOD 04/26/2025 1:28 PM [facility] Glucose 77 70 - 100 mg/dL LAB CHEMISTRY METHOD 04/26/2025 1:28 PM [facility] BUN 7 5 - 25 mg/dL LAB CHEMISTRY METHOD 04/26/2025 1:28 PM [facility] Creatinine 0.83 0.50 - 1.10 mg/dL LAB CHEMISTRY METHOD 04/26/2025 1:28 PM [facility] eGFR 91 >=60 mL/min/1. 73m2 LAB CHEMISTRY METHOD 04/26/2025 1:28 PM [facility] Comment:Calculation based on the Chronic Kidney Disease Epidemiology Collaboration (CKD-EPI) equation refit without adjustment for race. BUN/Creatinine Ratio 8.4 LAB CHEMISTRY METHOD 04/26/2025 1:28 PM EDT [facility] Calcium 10.7(H) 8.5 - 10.5 mg/dL LAB CHEMISTRY METHOD 04/26/2025 1:28 PM EDT [facility] AST (SGOT) 44(H) 10 - 42 unit/L LAB CHEMISTRY METHOD 04/26/2025 1:28 PM T [facility] Comment:Hemolysis present ALT (SGPT) 47 10 - 60 unit/L LAB CHEMISTRY METHOD 04/26/2025 1:28 PM EDT [facility] Alkaline Phosphatase 119 42 - 121 unit/L LAB CHEMISTRY METHOD 04/26/2025 1:28 PM [facility] Total Protein 8.3(H) 6.0 - 8.0 g/dL LAB CHEMISTRY METHOD 04/26/2025 1:28 PM [facility] Albumin 4.4 3.2 - 5.0 g/dL LAB CHEMISTRY METHOD 04/26/2025 1:28 PM [facility] Total Bilirubin 0.4 0.0 - 1.4 mg/dL LAB CHEMISTRY METHOD 04/26/2025 1:28 PM [facility] Blood Venous blood specimen / Unknown Venipuncture / Unknown 04/26/2025 7:00 AM EDT 04/26/2025 11:08 AM EDT Darby Solitario NP LAB BLOOD ORDERABLES Final Resul t [facility] [address] [place] [address], * (ABNORMAL) Lipid panel with reflex to direct LDL (04/24/2025 7:00 AM EDT) Cholesterol 287(H) 0 - 200 mg/dL LAB CHEMISTRY METHOD 04/24/2025 12:37 PM EDT [facility] Triglycerides 277(H) 0 - 150 mg/dL LAB CHEMISTRY METHOD 04/24/2025 12:37 PM EDT [facility] HDL 39(L) >=40 mg/dL LAB CHEMISTRY METHOD 04/24/2025 12:37 PM EDT [facility] LDL Calculated 193(H) 0 - 100 mg/dL LAB CHEMISTRY METHOD 04/24/2025 12:37 PM EDT [facility] VLDL Cholesterol Rodger 55.4 mg/dL LAB CHEMISTRY METHOD 04/24/2025 12:37 PM EDT [facility] Non HDL Chol. (LDL+VLDL) 248(H) <145 mg/dL LAB CHEMISTRY METHOD 04/24/2025 12:37 PM EDT [facility] Chol/HDL Ratio 7.4(H) 0.0 - 4.4 LAB CHEMISTRY METHOD 04/24/2025 12:37 PM EDT [facility] Blood Venous blood specimen / Unknown Venipuncture / Unknown 04/24/2025 7:00 AM EDT 04/24/2025 10:21 AM EDT us Tonia Patel NP LAB BLOOD ORDERABLES Final Re sult [facility] [address] [place] [address], from Last 3 Months or Most Recently Relevant to Health Maintenance Insurance MEDICARE MEDICAID - [place] Care Teams 3D Animator Relationship Specialty Start Date End Date Rhoda Pina MD [address] [place] [address] PCP - General Family Medicine 02/07/25
--- OUTSIDE RECORDS SUMMARY | 2025-10-23 13:09 | XMS_ITS | Encounter Summary ---
Author Organization [employer] Address [address] [facility] [place] [address] Care Team Providers Care Ethylbenzene Converter Operator Name Role Phone Rhoda Pina MD Primary Care Provider [phone] Rosemarie Barahona NP Primary Care Provider [phone] Estrellita Piper CNP Primary Care Provider [phone] Reason for Visit * Reason Onset Date Comments Nurse Triage 08/03/2024 Encounter Details Date Type Department Care Team ([facility] st Contact Info) Description 08/03/2024 Telephone [facility] MED[facility]INE [address] [place] [address] Rhoda Pina MD 505 [place] [address] Nurse Triage Social History Tobacco Use Types [...] Description 11/22/2025 10:00 AM EST Office Visit [facility] MED & PEDS 505 [place] [address] Estrellita Piper CNP [address] [place] [address] documented as of this encounter Visit Diagnoses Not on filedocumented in this encounter Additional Health Concerns Assessment Noted Time PHQ-9 Depression Total Score: 18 024 9:52 AM EDT documented as of this encounter Care Teams Ethylbenzene Converter Operator Relationship Specialty Start Date End Date Rhoda Pina MD [address] [place] [address] PCP - General Family Medicine 10/19/12 06/12/25 Rosemarie Barahona NP [address] [place] [address] PCP - General Family Medicine 08/09/25 09/19/25 Estrellita Piper CNP [address] [place] [address] PCP - General Family Medicine 09/20/25 documented as of this encounter
--- OUTSIDE RECORDS SUMMARY | 2025-10-23 13:09 | XMS_ITS | Encounter Summary ---
Author Organization [employer] Address [address] 7[address] [place] [address] Care Team Providers Care Celery Packer Name Role Phone Rhoda Pina MD Primary Care Provider [phone] Rosemarie Barahona NP Primary Care Provider [phone] Estrellita Piper CNP Primary Care Provider [phone] Reason for Visit * Reason Onset Date Comments Nurse Triage 03/18/2025 Encounter Details Date Type Department Care Team ([facility] st Contact Info) Description 03/18/2025 Telephone [facility] MEDICINE [address] [place] [address] Rhoda Pina MD 505 [place] [address] Nurse Triage Social History Tobacco Use Types [...] ED. Pt is given ASK apt in [facility] 200pm 03/18/25. Pt agrees with disposition. [...] to touch The caller accepted this outcome. [phone] documented in this encounter Plan of Treatment Upcoming Encounters Date Type Department Care Team (Late st Contact Info) Description 11/22/2025 10:00 AM EST Office Visit [facility] MED & [facility]EDS [address] [place] [address] Estrellita Piper CNP 505 [place] [address] documented as of this encounter Visit Diagnoses Not on filedocumented in this encounter Additional Health Concerns Assessment Noted Time PHQ-9 Depression Total Score: 23 025 9:51 AM EDT documented as of this encounter Care Teams Celery Packer Relationship Specialty Start Date End Date Rhoda Pina MD [address] [place] [address] PCP - General Family Medicine 10/19/12 06/12/25 Rosemarie Barahona NP [address] [place] [address] PCP - General Family Medicine 08/09/25 09/19/25 Estrellita Piper CNP 505 [place] [address] PCP - General Family Medicine 09/20/25 documented as of this encounter
--- OUTSIDE RECORDS SUMMARY | 2025-10-23 13:09 | XMS_ITS | Encounter Summary ---
Author Organization [facility] Address [address] [place] [address] Care Team Providers Care Playground Official Name Role Phone Rhoda Pina MD Primary Care Provider [phone] Encounter Details Date Type Department Care Team (Late st Contact Info) Description 04/24/2025 Lab Requisition [facility] - Main Lab [address] [place] [address] Tonia Bañuelos V, COURTROOM DEPUTY [address] [place] [address] Other fdc (current) drug therapy Social History Tobacco Use [...] LDL Routine 04/24/2025 7:00 AM EDT Other termite control service representative (current) drug therapy HEMOGLOBIN A1C Routine 04/24/2025 7:00 AM EDT Other fdc (current) drug therapy GLUCOSE, RANDOM Routine 04/24/2025 7:00 AM EDT Other termite control service representative (current) drug therapy documented in this encounter Results * Hemoglobin A1c (04/24/2025 7:00 AM EDT) Hemoglobin A1C 6.0 <6.5 % LAB CHEMISTRY METHOD 04/24/2025 1:38 PM EDT [facility] Mean Bld Glu Estim. 126 mg/dL LAB CHEMISTRY METHOD 04/24/2025 1:38 PM EDT [facility] Blood Venous blood specimen / Unknown Venipuncture / Unknown 04/24/2025 7:00 AM EDT 04/24/2025 10:21 AM EDT us Tonia Patel NP LAB BLOOD ORDERABLES Final Re sult [facility] [address] [place] [address], [place] [phone] * (ABNORMAL) Lipid panel with reflex to direct LDL (04/24/2025 7:00 AM EDT) Cholesterol 287(H) 0 - 200 mg/dL LAB CHEMISTRY METHOD 04/24/2025 12:37 PM [facility] Triglycerides 277(H) 0 - 150 mg/dL LAB CHEMISTRY METHOD 04/24/2025 12:37 PM [facility] HDL 39(L) >=40 mg/dL LAB CHEMISTRY METHOD 04/24/2025 12:37 PM [facility] LDL Calculated 193(H) 0 - 100 mg/dL LAB CHEMISTRY METHOD 04/24/2025 12:37 PM [facility] VLDL Cholesterol Rodger 55.4 mg/dL LAB CHEMISTRY METHOD 04/24/2025 12:37 PM T [facility] Non HDL Chol. (LDL+VLDL) 248(H) <145 mg/dL LAB CHEMISTRY METHOD 04/24/2025 12:37 PM [facility] Chol/HDL Ratio 7.4(H) 0.0 - 4.4 LAB CHEMISTRY METHOD 04/24/2025 12:37 PM [facility] Blood Venous blood specimen / Unknown Venipuncture / Unknown 04/24/2025 7:00 AM EDT 04/24/2025 10:21 AM EDT us Tonia Staple V, COURTROOM DEPUTY LAB BLOOD ORDERABLES Final Re sult [facility] [address] [place] [address], [place] [phone] * Glucose, random (04/24/2025 7:00 AM EDT) [facility] Glucose 92 70 - 100 mg/dL LAB CHEMISTRY METHOD 04/24/2025 12:37 PM EDT [facility] Blood Venous blood specimen / Unknown Venipuncture / Unknown 04/24/2025 7:00 AM EDT 04/24/2025 10:21 AM EDT us Tonia Staple V, COURTROOM DEPUTY LAB BLOOD ORDERABLES Final Re sult Performing Organization Address City/[facility]/ZIP Co de Phone Number [facility] [address] [place] [address], [place] [phone] documented in this encounter Visit Diagnoses Diagnosis Other termite control service representative (current) drug therapy documented in this encounter Care Teams Playground Official Relationship Specialty Start Date End Date Rhoda Pina MD [address] [place] [address] PCP - General Family Medicine 02/07/25 documented as of this encounter
--- OUTSIDE RECORDS SUMMARY | 2025-10-23 13:09 | XMS_ITS | Encounter Summary ---
Author Organization [facility] Address [address] [place] [address] Care Team Providers Care It Business Systems Analyst Name Role Phone Rhoda Pina MD Primary Care Provider [phone] Encounter Details Date Type Department Care Team ([facility] Contact Info) Description 04/30/2025 Lab Requisition [facility] - Main Lab [address] [facility] [place] [address] Social History Tobacco Use Types [...] on filedocumented in this encounter Care Teams It Business Systems Analyst Relationship Specialty Start Date End Date Rhoda Pina MD [address] [place] [address] PCP - General Family Medicine 02/07/25 documented as of this encounter
--- OUTSIDE RECORDS SUMMARY | 2025-10-23 13:09 | XMS_ITS | Encounter Summary ---
Author Organization [facility] Address [address] [place] [address] Care Team Providers Care Building Maintenance Custodian Name Role Phone Rhoda Pina MD Primary Care Provider [phone] Encounter Details Date Type Department Care Team (Late st Contact Info) Description 04/26/2025 Lab Requisition [facility] - Main Lab [address] [place] [address] Eli Quiroga, [address] [address] Other technician terminal and repeater (current) drug therapy Social History Tobacco Use [...] MAGNESIUM Routine 04/26/2025 7:00 AM EDT Other technician terminal and repeater (current) drug therapy documented in this encounter Results * (ABNORMAL) Magnesium (04/26/2025 7:00 AM EDT) Magnesium 2.7(H) 1.9 - 2.6 mg/dL LAB CHEMISTRY METHOD 04/26/2025 8:13 PM EDT [facility] Comment:Hemolysis present Blood Venous blood specimen / Unknown Venipuncture / Unknown 04/26/2025 7:00 AM EDT 04/26/2025 11:07 AM EDT us Eli Quiroga GRATED CHEESE MAKER LAB BLOOD ORDERABLES Final Result [facility] [address] [place] [address], documented in this encounter Visit Diagnoses Diagnosis Other technician terminal and repeater (current) drug therapy documented in this encounter Care Teams Building Maintenance Custodian Relationship Specialty Start Date End Date Rhoda Pina MD [address] [place] [address] PCP - General Family Medicine 02/07/25 documented as of this encounter
--- OUTSIDE RECORDS SUMMARY | 2025-10-23 13:10 | XMS_ITS | Encounter Summary ---
Author Organization [employer] Address [address] [place] [address] Care Team Providers Care Medical Office Coordinator Name Role Phone Rhoda Pina MD Primary Care Provider [phone] Rosemarie Barahona NP Primary Care Provider [phone] Estrellita Piper CNP Primary Care Provider [phone] Reason for Visit * Reason Onset Date Comments Referral 04/23/2024 Encounter Details Date Type Department Care Team ([facility] st Contact Info) Description 04/23/[address] [facility] MEDICINE [address] [place] [address] Rhoda Pina MD [address] [place] [address] Referral Social History Tobacco Use Types Packs/Day [...] TC from pt requesting new referral: Address: [address] [place] [address] [address], [place] [address] Facility Name: [facility] Plastic Surgery Type of Specialist: Plastic Surgeon documented in this encounter Plan of Treatment Upcoming Encounters Date Type Department Care Team ([facility] st Contact Info) Description 11/22/2025 10:00 AM EST Office Visit [facility] MED & PEDS [address] [place] [address] Estrellita Piper CNP [address] [place] [address] documented as of this encounter Visit Diagnoses Not on filedocumented in this encounter Additional Health Concerns Assessment Noted Time PHQ-9 Depression Total Score: 18 024 9:52 AM EDT documented as of this encounter Care Teams Medical Office Coordinator Relationship Specialty Start Date End Date Rhoda Pina MD [address] [place] [address] PCP - General Family Medicine 10/19/12 06/12/25 Rosemarie Barahona NP [address] [place] [address] PCP - General Family Medicine 08/09/25 09/19/25 Estrellita Piper CNP [address] [place] [address] PCP - General Family Medicine 09/20/25 documented as of this encounter
--- OUTSIDE RECORDS SUMMARY | 2025-10-23 13:10 | XMS_ITS | Encounter Summary ---
Author Organization [employer] Address [address] [place] [address] Care Team Providers Care Hydroelectric Systems Technician Name Role Phone Rhoda Pina MD Primary Care Provider [phone] Rosemarie Barahona NP Primary Care Provider [phone] Estrellita Piper CNP Primary Care Provider [phone] Reason for Visit * Reason Onset Date Comments Nurse Triage 12/04/2024 Encounter Details Date Type Department Care Team ([facility] st Contact Info) Description 12/04/2024 Telephone [facility] MEDICINE [address] [place] [address] Rhoda Pina MD [address] [place] [address] Nurse Triage Social History Tobacco Use Types [...] times. Advised Pt will forward this to [facility] nursing team today for prn follow up. Pt is advised to obtain 1% hydrocortisone cream OTC for itchiness and cool baths may help. Pt agrees with home care advise and will wait to hear from [facility] . Protocol Used: Medication Question Call [...] acuity questions The caller accepted this outcome. [phone] documented in this encounter Plan of Treatment Upcoming Encounters Date Type Department Care Team (Late st Contact Info) Description 11/22/2025 10:00 AM EST Office Visit [facility] MED & PEDS [address] [place] [address] Estrellita Piper CNP [address] [place] [address] documented as of this encounter Visit Diagnoses Not on filedocumented in this encounter Additional Health Concerns Assessment Noted Time PHQ-9 Depression Total Score: 18 02/26/2 024 9:52 AM EDT documented as of this encounter Care Teams Hydroelectric Systems Technician Relationship Specialty Start Date End Date Rhoda Pina MD [address] [place] [address] PCP - General Family Medicine 10/19/12 06/12/25 Rosemarie Barahona NP [address] [place] [address] PCP - General Family Medicine 08/09/25 09/19/25 Estrellita Piper CNP [address] [place] [address] PCP - General Family Medicine 09/20/25 documented as of this encounter
--- OUTSIDE RECORDS SUMMARY | 2025-10-23 13:10 | XMS_ITS | Encounter Summary ---
Author Organization [employer] Address [address] [place] [address] Care Team Providers Care Pattern And Chain Maker Name Role Phone Rhoda Pina MD Primary Care Provider [phone] Rosemarie Barahona NP Primary Care Provider Estrellita Piper CNP Primary Care Provider [phone] Reason for Visit * Reason Onset Date Comments Returning Call 02/24/2024 Encounter Details Date Type Department Care Team ([facility] st Contact Info) Description 02/24/2024 Telephone [facility] MEDICINE [address] [place] [address] Rhoda Pina MD [address] [place] [address] Returning Call Social History Tobacco Use Types [...] 9:52 AM EDT Sonya Posada MA * How difficult have these problems made it for you to do your work, take care of things at home, or get along with other people? Answer Date of Assessment Author Very difficult 02/27/2024 9:52 AM EDT Sonya Bone MA * Over the past 2 weeks, [...] energy Nearly every day 02/27/2024 9:52 AM SLIMET Sonya Posada MA Poor appetite or overeating [...] asked if I could speak with a network account manager, and they said given that after hours no one available. Thank you for all of your help trying to get the records! * Telephone Encounter - Aneesh Liang - 02/24/2024 1:09 PM EDT Tc from [facility] with [facility] calling in regards to discharge paperwork. [facility] stated pt [facility], she provided a number to call for discharge paperwork Please contact [facility] at [phone]. If any questions you can contact [facility] at [phone]. documented in this encounter Plan of Treatment Upcoming Encounters Date Type Department Care Team (Late st Contact Info) Description 11/22/2025 10:00 AM EST Office Visit [facility] MED & PEDS [address] [place] [address] Estrellita Piper CNP [address] [place] [address] documented as of this encounter Visit Diagnoses Not on filedocumented in this encounter Care Teams Pattern And Chain Maker Relationship Specialty Start Date End Date Rhoda Pina MD 230 [place] [address] PCP - General Family Medicine 10/19/12 06/12/25 Rosemarie Barahona NP [address] [place] [address] PCP - General Family Medicine 08/09/25 09/19/25 Estrellita Piper CNP [address] [place] [address] PCP - General Family Medicine 09/20/25 documented as of this encounter
== END 2025-10-23 11:19 | disposition home or self-care (01) ==
LOC: HO.HGI 10:31
PROVIDERS: PCP Emergency Medicine; Visit Provider Nurse Practitioner Family
DX: K59.00 Constipation, unspecified (principal); K21.9 Gastro-esophageal reflux disease without esophagitis; K76.0 Fatty (change of) liver, not elsewhere classified; L24.5 Irritant contact dermatitis due to other chemical products
CPT/HCPCS: 99213

== ENCOUNTER → 2025-10-23 10:31 | Outpatient (BNVA) | payer MEDICARE, MEDICAID, SELFPAY | PROVIDERS: PCP Emergency Medicine; Visit Provider Nurse Practitioner Family | DX: K21.9 Gastro-esophageal reflux disease without esophagitis (principal); L24.5 Irritant contact dermatitis due to other chemical products; K76.0 Fatty (change of) liver, not elsewhere classified; K59.00 Constipation, unspecified | CPT/HCPCS: 99212 ==